=== PATIENT | female | born 1985 | race Caucasian/White ===

== ENCOUNTER → 2019-12-29 09:52 | Outpatient (CLI) | payer OTHER, SELFPAY ==
[2016-09-20 00:49] VITALS: BMI 42.3
[2019-12-29 12:46] LABS: Anion Gap 7 (5-15); BUN 14 mg/dL (7-18); BUN/Creat Ratio 12.4 RATIO (10-20); Calcium,Total 8.9 mg/dL (8.5-10.1); Chloride 108 mmol/L (98-107); Cholesterol 183 mg/dL (200); Creatinine, Serum 1.13 mg/dL (0.55-1.02); EST Glomerular Filtration Rate 59 mL/min (>60); Est Glom Filt Rate - Afr Amer 71 mL/min (>60); Glucose 83 mg/dL (74-106); High Density Lipoprotein 51 mg/dL; Potassium 4.1 mmol/L (3.5-5.1); Sodium Level 138 mmol/L (136-145); Triglycerides 93 mg/dL; Very Low Density Lipoprotein 19 mg/dL (5-40)
[2019-12-29 12:47] LABS: Vitamin D,25 Hydroxy 39.3 ng/mL (29.95-100.01)
== END ==
PROVIDERS: PCP Family Medicine; Referring Provider Family Medicine; Visit Provider Family Medicine
DX: Z00.00 Encounter for general adult medical examination without abnormal findings (principal)
CPT/HCPCS: 36415; 80048; 80061; 82306

== ENCOUNTER → 2020-05-31 13:46 | Outpatient (CLI) | payer OTHER, SELFPAY ==
[2016-09-20 00:49] VITALS: BMI 42.3
[2020-05-31 15:41] LABS: T4 Total, Thyroxin 7.7 ug/dL (4.8-13.9); Thyroid Stim Hormone (TSH) 1.13 uIU/mL (0.358-3.74)
== END ==
PROVIDERS: PCP Family Medicine; Referring Provider Family Medicine; Visit Provider Family Medicine
DX: E03.9 Hypothyroidism, unspecified (principal)
CPT/HCPCS: 36415; 84436; 84443; 84481

== ENCOUNTER → 2020-08-23 13:59 | Outpatient (CLI) | payer OTHER, SELFPAY ==
[2016-09-20 00:49] VITALS: BMI 42.3
[2020-08-23 16:16] LABS: Free T3 2.1 pg/mL (2.18-3.98); T4 Total, Thyroxin 8.6 ug/dL (4.8-13.9); Thyroid Stim Hormone (TSH) 0.91 uIU/mL (0.358-3.74)
== END ==
PROVIDERS: PCP Family Medicine; Referring Provider Family Medicine; Visit Provider Family Medicine
DX: E03.9 Hypothyroidism, unspecified (principal)
CPT/HCPCS: 36415; 84436; 84443; 84481

== ENCOUNTER → 2021-01-10 10:16 | Outpatient (CLI) | payer OTHER, SELFPAY ==
[2016-09-20 00:49] VITALS: BMI 42.3
[2021-01-10 12:36] LABS: Free T3 2.3 pg/mL (2.18-3.98); T4 Free Direct 1.24 ng/dL (0.76-1.46); Thyroid Stim Hormone (TSH) 0.55 uIU/mL (0.358-3.74)
== END ==
PROVIDERS: PCP Family Medicine; Referring Provider Family Medicine; Visit Provider Family Medicine
DX: E03.9 Hypothyroidism, unspecified (principal)
CPT/HCPCS: 36415; 84439; 84443; 84481

== ENCOUNTER → 2021-03-12 17:50 | Outpatient (CLI) | payer OTHER, SELFPAY ==
[2021-03-12 20:36] LABS: Chlamydia Trachomatis by PCR Negative (Negative); Neisserai gonorrhoeae by PCR Negative (Negative); Probe Check PASS; Sample Adequacy Control PASS; Specimen Processing Control PASS
== END ==
PROVIDERS: Visit Provider Family Medicine
DX: R30.0 Dysuria (principal); N39.0 Urinary tract infection, site not specified
CPT/HCPCS: 87086; 87088; 87186; 87491; 87591

== ENCOUNTER → 2021-10-23 10:07 | Outpatient (CLI) | payer OTHER, SELFPAY ==
[2021-10-23 12:35] LABS: Free T3 2.1 pg/mL (2.18-3.98); T4 Free Direct 0.96 ng/dL (0.76-1.46); Thyroid Stim Hormone (TSH) 2.91 uIU/mL (0.358-3.74)
== END ==
LOC: MFPLAB 10:10
PROVIDERS: PCP Family Medicine; Referring Provider Family Medicine; Visit Provider Family Medicine
DX: E03.9 Hypothyroidism, unspecified (principal)
CPT/HCPCS: 36415; 84439; 84443; 84481

== ENCOUNTER 2022-01-29 14:44 | Outpatient (CLI) | payer OTHER, SELFPAY ==
[2022-01-29 18:33] LABS: Free T3 2.2 pg/mL (2.18-3.98); T4 Total, Thyroxin 13.8 ug/dL (4.8-13.9); Thyroid Stim Hormone (TSH) 3.01 uIU/mL (0.358-3.74)
== END 2022-01-29 23:59 | disposition home or self-care (01) ==
LOC: MFPLAB 14:47
PROVIDERS: PCP Family Medicine; Referring Provider Family Medicine; Visit Provider Family Medicine
DX: E03.9 Hypothyroidism, unspecified (principal)
CPT/HCPCS: 36415; 84436; 84443; 84481

== ENCOUNTER → 2022-06-10 | Outpatient (CLI) | payer OTHER, SELFPAY ==
[2022-06-10 12:41] LABS: Absolute Lymphocyte Count 1.68 X10^3/uL (0.83-4.51); Absolute Neutrophil Count 4.7 X10^3/uL (2.0-7.7); Basophil# 0.06 X10^3/uL; Basophil% 0.8 % (0-1); Eosinophil# 0.23 X10^3/uL; Eosinophils% 3.2 % (0-5); Hematocrit 39.6 % (37-47); Hemoglobin 13.3 g/dL (12.0-15.0); Lymphocyte # 1.68 X10^3/ul (0.83-4.51); Lymphocyte % 23.4 % (19-41); Mean Corp Hgb Conc 33.6 g/dL (32-36); Mean Corpuscular Volume 92.3 fL (81-99); Mean Platelet Vol. 11.9 fl (6.2-12.0); Monocyte# 0.44 X10^3/uL; Monocyte% 6.1 % (0-10); NRBC Flagged by Analyzer 0 % (0-5); Neutrophil # 4.74 X10^3/uL (2.7-7.7); Neutrophil % 66.1 % (47-70); Platelet Count 269 K/mm3 (150-450); RBC Distribution Width CV 12.5 % (11.6-14.6); RBC Distribution Width SD 42.4 fl (35.1-43.9); Red Blood Count 4.29 M/mm3 (4.2-5.4); White Blood Count 7.2 K/mm3 (4.4-11.0)
[2022-06-10 12:54] LABS: Anion Gap 5 (5-15); BUN 11 mg/dL (7-18); BUN/Creat Ratio 9.6 RATIO (10-20); Calcium,Total 8.9 mg/dL (8.5-10.1); Chloride 108 mmol/L (98-107); Cholesterol 216 mg/dL (200); Creatinine, Serum 1.14 mg/dL (0.55-1.02); EST Glomerular Filtration Rate 57 mL/min (>60); Est Glom Filt Rate - Afr Amer 69 mL/min (>60); Free T3 2.4 pg/mL (2.18-3.98); Glucose 90 mg/dL (74-106); High Density Lipoprotein 54 mg/dL; Potassium 4.2 mmol/L (3.5-5.1); Sodium Level 139 mmol/L (136-145); T4 Free Direct 0.87 ng/dL (0.76-1.46); Thyroid Stim Hormone (TSH) 2.72 uIU/mL (0.358-3.74); Triglycerides 120 mg/dL; Very Low Density Lipoprotein 24 mg/dL (5-40)
== END | disposition home or self-care (01) ==
LOC: MFPLAB 10:11
PROVIDERS: PCP Family Medicine; Referring Provider Family Medicine; Visit Provider Family Medicine
DX: Z00.00 Encounter for general adult medical examination without abnormal findings (principal); E03.9 Hypothyroidism, unspecified
CPT/HCPCS: 36415; 80048; 80061; 84439; 84443; 84481; 85025

== ENCOUNTER → 2022-08-13 | Outpatient (CLI) | payer OTHER, SELFPAY ==
--- NOTE | 2022-08-13 14:52 | ECHOD_ITS ---
Reason For Study: DYSPNEA Procedure This was a 2D Doppler, Color Flow transthoracic echocardiogram. Exam performed in department. Left Ventricle Normal LV size. Left ventricular systolic function is normal. The estimated ejection fraction is 65 %. Normal diastology for age. No regional wall motion abnormalities noted. Right Ventricle Normal RV size. Normal systolic function. Atria The left atrium is mildly enlarged. Normal right atrium. Mitral Valve Normal mitral valve. Tricuspid Valve Normal tricuspid valve. Aortic Valve Normal aortic valve. Pulmonic Valve Normal pulmonic valve. Great Vessels Normal aortic root. The pulmonary artery is normal size. Normal inferior vena cava. Pericardium/Pleural No pericardial effusion. MMode/2D Measurements & Calculations LVIDd: 4.9 cm IVSd: 1.1 cm Ao root diam: 2.6 cm LVIDs: 3.0 cm LVPWd: 1.3 cm FS: 39.7 % LAV(MOD-bp): 62.2 ml LVAd ap4: 27.7 cm2 SV(MOD-sp4): 65.8 ml LAV(MOD-bp) Indexed: 29.1 ml/m2 LVLd ap4: 7.0 cm LAV(MOD-sp2): 34.9 ml EDV(MOD-sp4): 93.4 ml LAV(MOD-sp4): 74.1 ml EDV(sp4-el): 93.0 ml LVAs ap4: 13.8 cm2 LVLs ap4: 6.1 cm ESV(MOD-sp4): 27.6 ml ESV(sp4-el): 26.6 ml EF(MOD-sp4): 70.4 % EF(sp4-el): 71.4 % SV(sp4-el): 66.4 ml LA A4 area: 23.6 cm2 LA dimension(2D): 4.0 cm RA A4 area: 17.7 cm2 Time Measurements MV dec time: 0.20 sec Doppler Measurements & Calculations MV E max baljeet: 86.0 cm/sec Lat Peak E' Baljeet: 12.6 cm/sec Med Peak E' Baljeet: 9.5 cm/sec MV A max baljeet: 64.3 cm/sec E/E' lat: 6.8 E/E' med: 9.1 MV E/A: 1.3 MV V2 max: 91.7 cm/sec Ao V2 max: 147.4 cm/sec MV max P.4 mmHg MV dec slope: 430.6 cm/sec2 Ao max P.7 mmHg MV V2 mean: 56.3 cm/sec Ao V2 mean: 98.7 cm/sec MV mean P.4 mmHg Ao mean P.5 mmHg MV V2 VTI: 30.7 cm Ao V2 VTI: 32.4 cm LV V1 max: 111.6 cm/sec PA V2 max: 122.7 cm/sec LV V1 max P.0 mmHg PA V2 mean: 83.4 cm/sec LV V1 mean P.7 mmHg LV V1 mean: 77.4 cm/sec LV V1 VTI: 24.1 cm ECHO/Echo Complete Interpretation Summary Normal LV size. Left ventricular systolic function is normal. The estimated ejection fraction is 65 %. The left atrium is mildly enlarged. Normal diastology for age. Ordering Physician: Glynn Price Referring Physician: Glynn Price Performed By: Yodit Escobar RCS
== END | disposition home or self-care (01) ==
LOC: CVS 14:50
PROVIDERS: PCP Family Medicine; Referring Provider Internal Medicine Cardiovascular Disease; Visit Provider Internal Medicine Cardiovascular Disease
DX: Z01.810 Encounter for preprocedural cardiovascular examination (principal); R06.00 Dyspnea, unspecified; R06.02 Shortness of breath
CPT/HCPCS: 93306

== ENCOUNTER → 2022-10-29 | Outpatient (CLI) | payer OTHER, SELFPAY ==
[2022-10-29 15:59] LABS: Free T3 2.6 pg/mL (2.18-3.98); T4 Free Direct 0.97 ng/dL (0.76-1.46); Thyroid Stim Hormone (TSH) 2.49 uIU/mL (0.358-3.74)
== END | disposition home or self-care (01) ==
LOC: MFPLAB 11:48
PROVIDERS: PCP Family Medicine; Referring Provider Family Medicine; Visit Provider Family Medicine
DX: E03.9 Hypothyroidism, unspecified (principal)
CPT/HCPCS: 36415; 84439; 84443; 84481

== ENCOUNTER → 2023-02-11 | Outpatient (CLI) | payer OTHER, SELFPAY ==
[2023-02-11 15:56] LABS: Magnesium 1.9 mg/dL (1.6-2.6)
== END | disposition home or self-care (01) ==
LOC: MTLAB 13:09
PROVIDERS: PCP Family Medicine; Referring Provider Physician Assistant; Visit Provider Physician Assistant
DX: R79.0 Abnormal level of blood mineral (principal)
CPT/HCPCS: 36415; 83735

== ENCOUNTER → 2023-03-19 | Outpatient (CLI) | payer OTHER, SELFPAY ==
[2023-03-19 15:22] LABS: Hematocrit 40.1 % (37-47); Mean Corp Hgb Conc 32.4 g/dL (32-36); Mean Corpuscular Volume 92.6 fL (81-99); Mean Platelet Vol. 12.5 fl (6.2-12.0); Platelet Count 267 K/mm3 (150-450); RBC Distribution Width CV 13.1 % (11.6-14.6); RBC Distribution Width SD 44.8 fl (35.1-43.9); Red Blood Count 4.33 M/mm3 (4.2-5.4); White Blood Count 8.2 K/mm3 (4.4-11.0)
[2023-03-19 15:47] LABS: Vitamin B12 895 pg/mL (211-911)
[2023-03-19 15:58] LABS: AST(SGOT) 25 U/L (15-37); Alanine Aminotransfer ALT/SGPT 56 U/L (13-56); Albumin, Serum 3.8 g/dL (3.2-5.0); Alkaline Phosphatase 74 U/L (45-117); Anion Gap 8 (5-15); BUN 11 mg/dL (7-18); BUN/Creat Ratio 11.1 RATIO (10-20); Calcium,Total 9.4 mg/dL (8.5-10.1); Chloride 107 mmol/L (98-107); Creatinine, Serum 0.99 mg/dL (0.55-1.02); EST Glomerular Filtration Rate 67 mL/min (>60); Est Glom Filt Rate - Afr Amer 81 mL/min (>60); Ferritin 43 ng/mL (8-252); Globulin 3.9 g/dL (2.2-4.2); Glucose 84 mg/dL (74-106); Iron 62 ug/dL (50-170); Magnesium 1.7 mg/dL (1.6-2.6); Potassium 4.1 mmol/L (3.5-5.1); Protein, Total 7.7 g/dL (6.4-8.2); Sodium Level 140 mmol/L (136-145)
[2023-03-24 04:07] LABS: Zinc, Plasma or Serum 68 ug/dL (44-115)
== END | disposition home or self-care (01) ==
LOC: MTLAB 11:25
PROVIDERS: PCP Family Medicine; Referring Provider Physician Assistant; Visit Provider Physician Assistant
DX: G47.33 Obstructive sleep apnea (adult) (pediatric) (principal); E66.01 Morbid (severe) obesity due to excess calories; Z68.41 Body mass index [BMI] 40.0-44.9, adult; E61.7 Deficiency of multiple nutrient elements; Z48.89 Encounter for other specified surgical aftercare
CPT/HCPCS: 36415; 80053; 82607; 82728; 82746; 83540; 83735; 84630; 85027

== ENCOUNTER → 2023-04-29 | Outpatient (CLI) | payer OTHER, SELFPAY ==
[2023-04-29 14:00] LABS: Free T3 2.2 pg/mL (2.18-3.98); Thyroid Stim Hormone (TSH) 0.85 uIU/mL (0.358-3.74)
== END | disposition home or self-care (01) ==
LOC: MFPLAB 09:08
PROVIDERS: PCP Family Medicine; Visit Provider Family Medicine
DX: E03.9 Hypothyroidism, unspecified (principal)
CPT/HCPCS: 36415; 84439; 84443; 84481

== ENCOUNTER → 2023-08-10 | Outpatient (CLI) | payer OTHER, SELFPAY ==
[2023-08-10 18:11] LABS: ALB/GLOB Ratio 0.9 RATIO (0.9-2.4); AST(SGOT) 16 U/L (15-37); Alanine Aminotransfer ALT/SGPT 24 U/L (13-56); Albumin, Serum 3.7 g/dL (3.2-5.0); Alkaline Phosphatase 80 U/L (45-117); Anion Gap 6 (5-15); BUN 9 mg/dL (7-18); BUN/Creat Ratio 8.6 RATIO (10-20); Calcium,Total 9.1 mg/dL (8.5-10.1); Chloride 105 mmol/L (98-107); Cholesterol 152 mg/dL (200); Creatinine, Serum 1.05 mg/dL (0.55-1.02); EST Glomerular Filtration Rate 62 mL/min (>60); Est Glom Filt Rate - Afr Amer 76 mL/min (>60); Free T3 2.3 pg/mL (2.18-3.98); Glucose 145 mg/dL (74-106); High Density Lipoprotein 58 mg/dL; Potassium 3.5 mmol/L (3.5-5.1); Protein, Total 7.7 g/dL (6.4-8.2); Sodium Level 139 mmol/L (136-145); T4 Free Direct 1.24 ng/dL (0.76-1.46); Triglycerides 98 mg/dL; Very Low Density Lipoprotein 20 mg/dL (5-40)
== END | disposition home or self-care (01) ==
LOC: MTLAB 16:57
PROVIDERS: PCP Family Medicine; Referring Provider Family Medicine; Visit Provider Family Medicine
DX: Z00.00 Encounter for general adult medical examination without abnormal findings (principal); E03.9 Hypothyroidism, unspecified; K76.0 Fatty (change of) liver, not elsewhere classified
CPT/HCPCS: 36415; 80053; 80061; 84439; 84443; 84481

== ENCOUNTER → 2023-10-16 | Outpatient (CLI) | payer OTHER, SELFPAY ==
[2023-10-16 13:18] LABS: Free T3 2.3 pg/mL (2.18-3.98); T4 Free Direct 1.23 ng/dL (0.76-1.46); Thyroid Stim Hormone (TSH) 0.65 uIU/mL (0.358-3.74)
== END | disposition home or self-care (01) ==
LOC: MFPLAB 11:26
PROVIDERS: PCP Family Medicine; Visit Provider Family Medicine
DX: E03.9 Hypothyroidism, unspecified (principal)
CPT/HCPCS: 36415; 84439; 84443; 84481

== ENCOUNTER → 2023-11-23 | Outpatient (CLI) | payer OTHER, SELFPAY ==
--- OUTSIDE RECORDS SUMMARY | 2023-11-23 11:52 | XMS RPT_ITS | CCD ---
Author Name Unknown Address [address] [place] [address] Organization [facility] Care Team Providers Care Sinker Winder Name Role Phone Patricio Buckley MD Primary Care Provider PROVIDER, UNKNOWN Referring Unavailable PARISH TILLMAN Attending Unavailable Ina, Patricio Primary Care Unavailable Carey Seals Attending Unavailable PROVIDER, UNKNOWN Referring Unavailable Ina, Patricio Primary Care Unavailable Carey Seals Attending Unavailable PROVIDER, UNKNOWN Referring Unavailable Ina, Patricio Primary Care Unavailable Dalton Martino Attending Unavailable Dalton Martino Referring Unavailable Ina, Patricio Primary Care Unavailable PROVIDER, UNKNOWN Referring Unavailable Dalton Martino Attending Unavailable MAXIMO WEBB Attending Unavail able PROVIDER, UNKNOWN Referring Unavailable Buckley, Patricio Primary Care Unavailable MAXIMO WEBB Attending Unavail able PROVIDER, UNKNOWN Referring Unavailable Ina, Patricio Primary Care Unavailable Buckley, Patricio Primary Care Unavailable PROVIDER, UNKNOWN Referring Unavailable PARISH TILLMAN Attending Unavailable Ina, Patricio Primary Care Unavailable PROVIDER, UNKNOWN Referring Unavailable Carey Seals Attending Unavailable Dalton Martino Attending Unavailable PROVIDER, UNKNOWN Referring Unavailable Ina, Patricio Primary Care Unavailable PROVIDER, UNKNOWN Referring Unavailable PARISH TILLMAN Attending Unavailable Patricio Buckley Primary Care Unavailable Patricio Buckley MD Primary Care Provider Patricio Buckley MD Primary Care Provider Dalton Martino MD Unavailable [phone] Maddie Elias Unavailable MAXIMO WEBB Attending Unavailable PATRICIO BUCKLEY Primary Care Unavailable DALTON MARTINO Admitting Unavailable INA, PATRICIO Primary Care Unavailable DALTON MARTINO Attending Unavailable ZORONALD, DALTON Attending Unavailable BUCKLEY, PATRICIO Primary Care Unavailable ZUPKE, MAXIMO Attending Unavailable BUCKLEY, PATRICIO Primary Care Unavailable ZUPKE, MAXIMO Attending Unavailable BUCKLEY, PATRICIO Primary Care Unavailable BUCKLEY, PATRICIO Primary Care Unavailable ZOGRAFMARY, DALTON Attending Unavailable BUCKLEY, PATRICIO Primary Care Unavailable ZORONALD, DALTON Attending Unavailable BUCKLEY, PATRICIO Primary Care Unavailable ZORONALD, DALTON Attending Unavailable BUCKLEY, PATRICIO Primary Care Unavailable ZOKAMARAFMARY, DALTON Referring Unavailable ZUPKE, MAXIMO Attending Unavailable BUCKLEY, PATRICIO Primary Care Unavailable ZUPKE, MAXIMO Referring Unavailable ZUPKE, MAXIMO Attending Unavailable BUCKLEY, PATRICIO Primary Care Unavailable Patricio Buckley MD Primary Care Provider Salena KEMP, Dalton Bernabe Unavailable Maddie Elias Unavailable Patricio Buckley MD Primary Care Provider WILBERTO MORALES Attending Unavailable PATRICIO BUCKLEY Primary Care Unavailable Allergies Allergy Classification Reported Allergen(s) Allergy Type Date of Onset Reaction(s) Facility (10 sources) bee venom Propensity to adverse reactions to drug 12-16-2019 Anaphylaxis [facility] (2 sources) Honey bee venom Allergy to substance 12-16-2019 Anaphylaxis [facility] (2 sources) Bee Sting; Translations: [BEE STING] Allergy to substance 12-16-2019 Anaphylaxis [facility] Medications Current Medications Medication Drug Class(es) Dates Sig (Normalized) Sig (Original) calcium carbonate 500 mg chewable tablet (1 source) calcium carbonat e (Tums) 500 MG chewable tablet Chew 500 mg 3 times daily. 0 Active calcium citrate 500 mg oral tablet (2 sources) take 500 mg by mouth three times daily CALCIUM CITRATE PO Take 500 mg by mouth 3 times daily. 0 Active CPAP Machine MISC (8 sources) CPAP Machine MIS C 11 cm by Does not apply route 11 cm H20 KARINE 0 Active Magnesium (3 sources) Start: 01-19-2023 take 1 capsule by mouth once daily Magnesium 400 MG capsule Take 1 capsule by mouth daily. 0 01/19/2023 Active Multiple Vitamin (MVI, CELEBRATE, CHEWABLE TABLET) (8 sources) Start: 12-16-2019 take 1 tablet by mouth once daily Multiple Vitamin (MVI, CELEBRATE, CHEWABLE TABLET) Take 1 tablet by mouth daily 0 12/16/2019 Active Multiple Vitamins-Iron (MULTIVITAMIN/IRON PO) (2 sources) Start: 03-26-2023 take 1 tablet by mouth once daily Multiple Vitamins-Iron (MULTIVITAMIN/IRON PO) Take 1 tablet by mouth daily. 0 03/26/2023 Active multivitamin-childre n's (Flintstones) 18 MG chewable tablet (1 source) multivitamin-chi ld mayur's (Flintstones) 18 MG chewable tablet Chew 1 tablet daily. 0 Active omeprazole 20 mg delayed release oral capsule (4 sources) Proton Pump Inhibitor Start: 12-04-2022 take 1 capsule by mouth once daily omeprazole (PriLOSEC) [address] capsule Take 1 capsule (20 mg) by mouth daily. Do not crush or chew. 90 capsule 1 12/04/2022 Active propranolol hydrochloride 20 mg oral tablet (11 sources) beta-Adrenergic Himanshu Start: 12-03-2022 propranolol (Inderal) 20 MG tablet 20 mg every evening. 0 12/03/2022 Active Completed/Discontinued Medications Medication Drug Class(es) Dates Sig (Normalized) Sig (Original) 24 hr buPROPion hydrochloride 300 mg extended release oral tablet (20 sources) Aminoketone Start: 12-03-2022 take 1 tablet by mouth once daily in the morning buPROPion XL (WELLBUTRIN XL) 150 mg 24 hr tablet Take 150 mg by mouth every morning. 0 07/25/2023 Active Problems Active Problems Problem Classification Problem Date Documented Date Episodic/Chronic Diabetes mellitus without complication (1 source) Decreased glucose level; Translations: [Other abnormal glucose] 07-23-2023 Episodic Esophageal disorders (14 sources) Gastroesophageal reflux disease without esophagitis; Translations: [Gastro-esophageal reflux disease without esophagitis] Onset: 06-09-2022 Chronic Essential hypertension (2 sources) Essential (primary) hypertension; Translations: [Essential (primary) hypertension] Onset: 02-27-2022 Chronic Gastritis and duodenitis (9 sources) Chronic superficial gastritis; Translations: [Chronic superficial gastritis without bleeding] Onset: 06-09-2022 Chronic Immunizations and screening for infectious disease (5 sources) Other specified abnormal immunological findings in serum; Translations: [Other and unspecified nonspecific immunological findings] Onset: 12-30-2022 12-30-2022 Episodic Miscellaneous mental health disorders (2 sources) Eating disorder, unspecified; Translations: [Eating disorder, unspecified] Onset: 06-25-2022 Chronic Mood disorders (5 sources) Major depressive disorder, recurrent, mild; Translations: [Bipolar disorder, unspecified] Onset: 11-27-2020 Chronic Nutritional deficiencies (4 sources) Deficiency of multiple nutrient elements; Translations: [Deficiency of multiple nutrient elements] Onset: 01-22-2023 Episodic Other aftercare (1 source) Postoperative visit; Translations: [Encounter for other specified surgical aftercare] Episodic Other disorders of stomach and duodenum (2 sources) Disease of stomach and duodenum, unspecified; Translations: [Disease of stomach and duodenum, unspecified] Onset: 06-10-2022 Episodic Other hematologic conditions (1 source) Protein level - finding; Translations: [Other specified abnormalities of plasma proteins] 07-23-2023 Episodic Other liver diseases (4 sources) Steatosis of liver; Translations: [Fatty (change of) liver, not elsewhere classified] Onset: 12-22-2022 12-22-2022 Chronic Other nutritional; endocrine; and metabolic disorders (14 sources) Morbid obesity; Translations: [Morbid (severe) obesity due to excess calories] Onset: 02-24-2022 02-24-2022 Chronic Other nutritional; endocrine; and metabolic disorders (4 sources) Body mass index (BMI) 45.0-49.9, adult; Translations: [Body mass index [BMI] 45.0-49.9, adult] Onset: 06-25-2022 Chronic Other nutritional; endocrine; and metabolic disorders (4 sources) Morbid (severe) obesity due to excess calories; Translations: [Morbid (severe) obesity due to excess calories] Onset: 06-10-2022 Chronic Other nutritional; endocrine; and metabolic disorders (4 sources) Body mass index (BMI) 40.0-44.9, adult; Translations: [Body mass index [BMI] 40.0-44.9, adult] Onset: 05-23-2022 Chronic Other nutritional; endocrine; and metabolic disorders (9 sources) Body mass index 40+ - severely obese; Translations: [Morbid (severe) obesity due to excess calories] Onset: 12-04-2022 12-22-2022 Chronic Other nutritional; endocrine; and metabolic disorders (2 sources) Other obesity due to excess calories; Translations: [Other obesity due to excess calories] Onset: 03-26-2023 Chronic Other nutritional; endocrine; and metabolic disorders (2 sources) Body mass index (BMI) 37.0-37.9, adult; Translations: [Body mass index (BMI) 37.0-37.9, adult] Onset: 03-26-2023 Chronic Other nutritional; endocrine; and metabolic disorders (1 source) Obesity; Translations: [Other obesity due to excess calories] 07-20-2023 Chronic Other nutritional; endocrine; and metabolic disorders (1 source) Hypervitaminosis D; Translations: [Hypervitaminosis D] 07-23-2023 Chronic Other screening for suspected conditions (not mental disorders or infectious disease) (2 sources) Other specified abnormal findings of blood chemistry; Translations: [Other nonspecific findings on examination of blood] 07-23-2023 Episodic Residual codes; unclassified (4 sources) Obstructive sleep apnea (adult) (pediatric); Translations: [Obstructive sleep apnea (adult) (pediatric)] Onset: 06-10-2022 Chronic Residual codes; unclassified (2 sources) Dependence on other enabling machines and devices; Translations: [Dependence on other enabling machines and devices] Onset: 02-27-2022 Chronic Residual codes; unclassified (6 sources) Obstructive sleep apnea syndrome; Translations: [Obstructive sleep apnea (adult) (pediatric)] Onset: 12-04-2022 12-22-2022 Chronic Thyroid disorders (17 sources) Hypothyroidism; Translations: [Hypothyroidism, unspecified] Onset: 08-13-2017 02-27-2022 Chronic Past or Other Problems Problem Classification Problem Date Documented Da te Episodic/Chronic Abdominal hernia (8 sources) Diaphragmatic hernia without obstruction or gangrene; Translations: [Hiatal hernia] Onset: 04-16-2022 Episodic Abdominal pain (3 sources) Generalized abdominal pain; Translations: [Generalized abdominal pain] Onset: 04-02-2022 Episodic Other aftercare (2 sources) Encounter for other specified surgical aftercare; Translations: [Encounter for other specified surgical aftercare] Onset: 01-22-2023 Episodic Other gastrointestinal disorders (2 sources) Heartburn; Translations: [Heartburn] Onset: 04-16-2022 Episodic Spondylosis; intervertebral disc disorders; other back problems (16 sources) Backache; Translations: [Dorsalgia, unspecified] Onset: 02-27-2022 02-27-2022 Episodic Results Test Name Value Interpretation Reference Range Facil ity Vital Signs Date Time Vital Sign Value Performing Clinician Goldnoemí mary jane 08-04-2023 09:53-0400 Body height 158.1 cm Wilberto Morales MD Work Phone: [facility] 08-04-2023 09:53-0400 Body weight 83.01 kg Wilberto Morales MD Work Phone: [facility] 08-04-2023 09:53-0400 Diastolic blood pressure 76 mm[Hg] Wilberto Morales MD Work Phone: [facility] 08-04-2023 09:53-0400 Systolic blood pressure 118 mm[Hg] Wilberto Morales MD Work Phone: [facility] 07-20-2023 14:19-0400 Body height 161.3 cm Maximo Zupke PA Work Phone: [facility] 07-20-2023 14:19-0400 Body mass index (BMI) [Ratio] 32.75 kg/m2 Maximo Zupke PA Work Phone: [facility] 07-20-2023 14:19-0400 Body temperature 97.7 [degF] Maximo Zupke PA Work Phone: [facility] 07-20-2023 14:19-0400 Body weight 85.19 kg Maximo Zupke PA Work Phone: [facility] 07-20-2023 14:19-0400 Diastolic blood pressure 85 mm[Hg] Maximo Zupke PA Work Phone: [facility] 07-20-2023 14:19-0400 Heart rate 72 /min Maximo Zupke PA Work Phone: [facility] 07-20-2023 14:19-0400 Respiratory rate 16 /min Maximo Zupke PA Work Phone: [facility] 07-20-2023 14:19-0400 Systolic blood pressure 124 mm[Hg] Maximo MAYA Work Phone: [facility] 01-22-2023 08:44-0400 Body height 161.3 cm Maximo MAYA Work Phone: [facility] Encounters Encounter Date Encounter Type Care Provider Facility Start: 08-04-2023 End: 08-04-2023 ambulatory WILBERTO MORALES Facility:[facility] Start: 08-04-2023 End: 08-04-2023 Patient encounter procedure Wilberto Morales MD Work Phone: OB/Gynecology Procedures Date Procedure Procedure Detail Performing Clinician Start: 07-20-2023 Lipid 1996 panel - S ramos or Plasma Maximo MAYA Work Phone: Start: 06-10-2022 HM ENDOSCOPY REPORT Phy sician Generic Start: 04-02-2022 Us abdominal real ti me w/image documentation Maximo MAYA Work Phone: Plan of Treatment Date Care Activity Detail Author Start: 2035 Zoster Vaccines (1 o f 2) Zoster Vaccines (1 of 2) [facility] Start: 07-20-2028 Lipid panel Lipid Panel [facility] Start: 12-24-2023 End: 12-24-2023 Patient encounter procedure 12/24/2023 8:00 AM EST Office Visit Weight Management [address] [place] [address] Dalton Martino MD [address] [place] [address] [address] [place], [place] [id number] [facility] [place] Start: 12-20-2023 End: 07-20-2024 25-hydroxyvitamin D3 [Mass/volume] in Serum or Plasma Vitamin D Deficiency Screening (Vit D 25) Lab Routine Deficiency of multiple nutrient elements Class 1 obesity due to excess calories with serious comorbidity and body mass index (BMI) of 32.0 to 32.9 in adult Expected: 12/20/2023 (Approximate), Expires: 07/20/2024 [facility] Immunizations Immunization Date Immunization Notes Care Provider Fa cility 09-03-2022 influenza, injectabl e, quadrivalent, contains preservative Wilberto Morales MD Work Phone: [facility] Work Phone: 09-03-2022 influenza virus vaccine, unspecified formulation Maximo MAYA Work Phone: [facility] 10-23-2021 influenza, injectabl e, quadrivalent, contains preservative Wilberto Morales MD Work Phone: [facility] Work Phone: 08-24-2020 influenza, injectabl e, quadrivalent, preservative free Wilberto Morales MD Work Phone: [facility] Work Phone: 08-10-2017 influenza, seasonal, injectable Wilberto Morales MD Work Phone: [facility] Work Phone: 09-21-2016 influenza, seasonal, injectable, preservative free Wilberto Morales MD Work Phone: [facility] Work Phone: 09-18-2015 influenza, seasonal, injectable, preservative free Wilbreto Morales MD Work Phone: [facility] Work Phone: 09-18-2014 influenza, seasonal, injectable Wilberto Morales MD Work Phone: [facility] Work Phone: Payers Date Payer Category Payer Private Health Insurance [id number] 2019 Private Health Insurance 1985 Unknown [id number] 2.16. [id number] 1985 Unknown [id number] 2.16. [id number] 1985 Unknown [id number] 2.16. [id number] 1985 Unknown [id number] 2.16. [id number] 1985 Unknown [id number] 2.16. [id number] 1985 Unknown [id number] 2.16. [id number] 1985 Unknown [id number] 2.16. [id number] 1985 Unknown [id number] 2.16. [id number] 1985 Unknown [id number] 2.16. [id number] 1985 Unknown [id number] 2.16. [id number] 1985 Unknown [id number] 2.16. [id number] Self-pay Social History Date Type Detail Facility Start: 02-27-2022 End: 12-15-2022 Tobacco smoking status TXIS Ex-smoker [employer] Work Phone: History of tobacco use Cigarette Smoker [facility] Work Phone: Start: 02-27-2022 End: 08-04-2023 Tobacco use and exposure Smokeless tobacco non-user [employer] Work Phone: Start: 02-27-2022 End: 08-04-2023 Alcohol intake Current drinker of alcohol (finding) [employer] Work Phone: Start: 02-27-2022 End: 08-04-2023 Alcohol intake [facility] Start: 1985 Sex Assigned At Not on file [employer] Work Phone: History of tobacco use Current smoker [facility] Work Phone: Start: 05-31-2022 End: 07-20-2023 Exposure to SARS-CoV-2 (event) Not sure [facility] Work [facility]: Start: 01-22-2023 End: 07-20-2023 Alcohol intake Ex-drinker (finding) [facility] Start: 07-20-2023 End: 08-04-2023 Tobacco use panel [facility] Start: 08-04-2023 Tobacco smoking stat us NHIS Never smoked tobacco [facility] How hard is it for y ou to pay for the very basics like food, housing, medical care, and heating Not hard at all [facility] (I/We) worried wheth er (my/our) food would run out before (I/we) got money to buy more. Never true [facility] Start: 12-16-2019 Alcohol Comment Social [facility] Clinical Notes 06-10-2022 to 08-04-2023 Wilberto Morales MD - 08/04/2023 9:47 AM EDTTelephone Encounter - ZULMA Alegria - 07/24/2023 8:32 AM EDTTelephone Encounter - ZULMA Alegria - 07/24/2023 8:32 AM EDTDischarge Instructions Note Date & Type Note Facility 08-04-2023 Note HNO ID: [id number] Author: Wilberto Morales MD Service: ? Author Type: Physician Type: Progress Notes Filed: 08/04/2023 10:27 AM Note Text: Lana is a 37 year old who presents for an annual gynecologic exam without complaints. Menses: cycles every 28-30 days and 5 days of flow. Contraception: vasectomy HPV vaccine: No Last Pap: normal HPV: uncertain History of abnormal pap: No Last mammogram: never Sexually active: Yes OB History T2 L2 SAB0 IAB0 Ectopic0 Multiple0 Live Births2 Obstetrician And Gynaecologist History LMP: 07/21/2023 (Exact Date), Having periods Age at Menarche: Age at First : Age at Menopause: Obstetrician And Gynaecologist History Comments: Sexual Activity: Yes; Male Contraception: Vasectomy PAST MEDICAL HISTORY Diagnosis Date Depression Hypothyroid Psychiatric disorder PAST SURGICAL HISTORY Procedure Laterality Date LAP SLEEVE GASTRECTOMY 12/22/2022 FAMILY HISTORY Problem Relation Age of Onset Hypertension Mother Hypertension Father SOCIAL HISTORY Social History Tobacco Use Smoking status: Never Smokeless tobacco: Never Vaping Use Vaping Use: Never used Substance Use Topics Alcohol use: Yes Comment: Social Drug use: Never REVIEW OF SYSTEMS Abdomen: No abdominal pain, nausea, vomiting, diarrhea, or constipation. No bloating, early satiety, indigestion, or increased flatulence. Bladder: No dysuria, gross hematuria, urinary frequency, urinary urgency, or incontinence. Breast: No breast lumps, nipple d/c, overlying skin changes, redness or skin retraction. Allergies and current medication updated:Yes EXAM: BP 118/76 Ht 5' 2.25 (1.58m) Wt 183 lb (83.0kg) LMP 07/21/2023 BMI 33.21 kg/(m2). GENERAL: pleasant, female in no apparent distress HEENT: Normocephalic, atraumatic, mucus membranes moist, and no lesions NECK: Supple, full range of motion, no adenopathy, and thyroid normal DERMATOLOGY: Normal, without lesions, non-icteric, and non-hirsute BREAST: soft, non-tender, symmetric, no dominant mass, normal nipple-areolar complex, no lymphadenopathy, and no nipple discharge CHEST: Normal inspiratory effort ABDOMEN: soft, non-tender, and no masses PELVIC: external genitalia normal, normal Bartholin's glands, urethra, [place]'s glands, no vulvar lesions, no cervical lesions, good vaginal support, physiologic discharge present, normal appearing perineal body and perianal region BIMANUAL: uterus normal size, shape and consistency, no adnexal masses, and non-tender RECTOVAGINAL: deferred. NEURO: alert and oriented x3,exam grossly non-focal EXTREMITIES: normal ASSESSMENT/PLAN: 1) Health maintenance: Pap done with HPV. Mammogram starting age 40. HPV vaccine: discussed, not interested 2) Contraception: vasectomy. Contraceptive options reviewed and information provided. 3) STD screening: Declined STD check. 4) Follow up one year or sooner as needed Declines flu vaccine today Wilberto Morales MD [facility] 08-04-2023 History of Present illness Narrative Lana is a 37 year old who presents for an annual gynecologic exam without complaints. Menses: cycles every 28-30 days and 5 days of flow. Contraception: vasectomy HPV vaccine: No Last Pap: normal HPV: uncertain History of abnormal pap: No Last mammogram: never Sexually active: Yes OB History T2 L2 SAB0 IAB0 Ectopic0 Multiple0 Live Births2 Obstetrician And Gynaecologist History LMP: 07/21/2023 (Exact Date), Having periods Age at Menarche: Age at First : Age at Menopause: Obstetrician And Gynaecologist History Comments: Sexual Activity: Yes; Male Contraception: Vasectomy PAST MEDICAL HISTORY Diagnosis Date Depression Hypothyroid Psychiatric disorder PAST SURGICAL HISTORY Procedure Laterality Date LAP SLEEVE GASTRECTOMY 12/22/2022 FAMILY HISTORY Problem Relation Age of Onset Hypertension Mother Hypertension Father SOCIAL HISTORY Social History Tobacco Use Smoking status: Never Smokeless tobacco: Never Vaping Use Vaping Use: Never used Substance Use Topics Alcohol use: Yes Comment: Social Drug use: Never REVIEW OF SYSTEMS Abdomen: No abdominal pain, nausea, vomiting, diarrhea, or constipation. No bloating, early satiety, indigestion, or increased flatulence. Bladder: No dysuria, gross hematuria, urinary frequency, urinary urgency, or incontinence. Breast: No breast lumps, nipple d/c, overlying skin changes, redness or skin retraction. Allergies and current medication updated:Yes EXAM: BP 118/76 Ht 5' 2.25 (1.58m) Wt 183 lb (83.0kg) LMP 07/21/2023 BMI 33.21 kg/(m^2). GENERAL: pleasant, female in no apparent distress HEENT: Normocephalic, atraumatic, mucus membranes moist, and no lesions NECK: Supple, full range of motion, no adenopathy, and thyroid normal DERMATOLOGY: Normal, without lesions, non-icteric, and non-hirsute BREAST: soft, non-tender, symmetric, no dominant mass, normal nipple-areolar complex, no lymphadenopathy, and no nipple discharge CHEST: Normal inspiratory effort ABDOMEN: soft, non-tender, and no masses PELVIC: external genitalia normal, normal Bartholin's glands, urethra, [place]'s glands, no vulvar lesions, no cervical lesions, good vaginal support, physiologic discharge present, normal appearing perineal body and perianal region BIMANUAL: uterus normal size, shape and consistency, no adnexal masses, and non-tender RECTOVAGINAL: deferred. NEURO: alert and oriented x3,exam grossly non-focal EXTREMITIES: normal ASSESSMENT/PLAN: 1) Health maintenance: Pap done with HPV. Mammogram starting age 40. HPV vaccine: discussed, not interested 2) Contraception: vasectomy. Contraceptive options reviewed and information provided. 3) STD screening: Declined STD check. 4) Follow up one year or sooner as needed Declines flu vaccine today Wilberto Morales MD documented in this encounter [facility] 07-24-2023 Telephone encounter Note Signed, thanks [facility] 07-24-2023 Miscellaneous Notes Signed, thanks Spoke to patient during OV on 07/20/23 regarding intake, supplements, and spoke to patient over MyChart regarding labs. Discussed hypoglycemia. Patient noted she was not fasting for her labs, but it had been a while since she had eaten. RD reminded patient to try and eat every 2-3 hours, pair complex CHO and protein sources together with meals and snacks, as well as how to treat a low blood sugar and to be aware of symptoms. Discussed elevated B12. Patient reports she has been taking 5,[address] encouraged patient take once weekly and patient was agreeable. RD encouraged patient continue to increase hydration with elevated total protein and to follow-up with PCP. Informed patient Vitamin D was on the high end of normal. Discussed increasing time outside can raise levels, and for patient to continue current dose and lab will be rechecked in 3 months; will continue to monitor. Medication list updated. Orders pending. DOS 12/22/2022 LSG W / HH REPAIR JZ Next OV 12/24/23 for 12M POP Labs (07/20/23) Glucose: 64 (L) Total protein: 8.6 (H) B12: >1000 (H) Vitamin D: 78 (high end of normal) B1 pending Sending MyChart message to patient regarding labs. ----- Message from ZULMA Alegria sent at 07/21/2023 8:28 AM EDT ----- Sarah- please review. Thanks! Glucose low Please also advise PCP follow up for elevated total protein documented in this encounter [employer] 07-23-2023 Telephone encounter Note Spoke to patient during OV on 07/20/23 regarding intake, supplements, and spoke to patient over MyChart regarding labs. Discussed hypoglycemia. Patient noted she was not fasting for her labs, but it had been a while since she had eaten. RD reminded patient to try and eat every 2-3 hours, pair complex CHO and protein sources together with meals and snacks, as well as how to treat a low blood sugar and to be aware of symptoms. Discussed elevated B12. Patient reports she has been taking 5,[address] encouraged patient take once weekly and patient was agreeable. RD encouraged patient continue to increase hydration with elevated total protein and to follow-up with PCP. Informed patient Vitamin D was on the high end of normal. Discussed increasing time outside can raise levels, and for patient to continue current dose and lab will be rechecked in 3 months; will continue to monitor. Medication list updated. Orders pending. [employer] 07-21-2023 Telephone encounter Note DOS 12/22/2022 LSG W / HH REPAIR JZ Next OV 12/24/23 for 12M POP Labs (07/20/23) Glucose: 64 (L) Total protein: 8.6 (H) B12: >1000 (H) Vitamin D: 78 (high end of normal) B1 pending Sending MyChart message to patient regarding labs. [employer] 07-21-2023 Telephone encounter Note ----- Message from ZULMA Alegria sent at 07/21/2023 8:28 AM EDT ----- Sarah- please review. Thanks! Glucose low Please also advise PCP follow up for elevated total protein [employer] 07-20-2023 History of Present illness Narrative Images from the original note were not included. HPI, PHYSICAL EXAMINATION & PLAN POST-OP HPI: Patient here today for 6 month post-weight loss surgery follow up The patient is feeling well. Denies nausea, vomiting, dysphagia, or any GERD Sx. Currently is not on any PPI. Patient states diet and exercise is going well. Currently is eating 65-75 gm/day protein, and is compliant with prescribed multivitamins and supplements. Eating 4-5 times per day. Fluid intake 64 ounces daily. Reports continued tolerance issues with eggs and PB but otherwise tolerates foods well. BM normal and every other day. Review of Systems Constitutional: Negative for chills and fever. HENT: Negative for congestion, sore throat and trouble swallowing. Respiratory: Negative for cough and shortness of breath. Cardiovascular: Negative for chest pain and palpitations. Gastrointestinal: Negative for abdominal pain, constipation, diarrhea, nausea and vomiting. Genitourinary: Negative for dysuria and frequency. Musculoskeletal: Negative for arthralgias and back pain. Skin: Negative for color change. Neurological: Negative for dizziness and light-headedness. Psychiatric/Behavioral: The patient is not nervous/anxious. Vital signs are stable. Labs were Not completed. All labs were: pending Physical Examination: BP 124/85 Pulse 72 Temp 36.5 C (97.7 F) Resp 16 Ht 5' 3.5 (1.613 m) Wt 187 lb 12.8 oz (85.2 kg) BMI 32.75 kg/m General: This patient is awake, alert, and oriented, and is in no apparent distress. Respiratory: Non-labored breathing Abdomen: Obese, soft, non-tender, non-distended without masses/ No evidence of abdominal hernia / Incisions consistent with previous surgeries. Head and Neck: Obese, normocephalic and atraumatic Extremities: No cyanosis, clubbing or edema/ No calf tenderness/No restrictions of movement, is ambulatory without assistance. Skin: No rashes or lesions noted. 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 Discussed stopping PPI with patient. Patient is call if any mentioned symptoms return: persistent nausea all day, epigastric pain, pain radiating under either side of rib cage or pain in the middle of their back that is not improving. 2). Labs: pending 3). Diet and Exercise: RD discussed diet with patient during office visit. 4). Follow up at 12 month office visit with standard labs. 5). Psych concerns: no 6). Patient is a woman of childrearing age- 18-50. We discussed the importance of contraception during the first 12-18 months post op, and we discussed that fertility will increase following the procedure. Advised patient to discuss with her OBGYN regarding contraception. Patient counseled with good understanding verbalized. has hx of vasectomy. 7). Weight loss: Post-op Weight Metrics: %EBWL: % EBWL: 50% Weight Change Since Last Visit: Weight Change: -29 lbs Weight Change from Highest Pre-op Weight: Total Weight Change: -70 lbs KARINE -compliant w CPAP GERD -has been off PPI for a week now and no issues with GERD sx Orders Placed This Encounter Procedures Zinc These orders are set for an approximate date - they can be drawn up to 3 months prior to the Expected Date on this Req. Please send results to: PATRICIO BUCKLEY MD - [address] [facility] [address] [facility] [address] - [phone] And if not done at a [facility], please send to: [facility] [address], [address] [facility], [address] Patient Name: Lana Adame - 1985 Order Created by : Han Leung MA Standing Status: Future Number of Occurrences: 1 Standing Expiration Date: 07/20/2024 Folate These orders are set for an approximate date - they can be drawn up to 3 months prior to the Expected Date on this Req. Please send results to: PATRICIO BUCKLEY MD - [address] [place] [address] [facility] [id number] - [phone] And if not done at a [facility], please send to: [address], [facility] Patient Name: Lana Adame - 1985 Order Created by : Han Leung MA Standing Status: Future Number of Occurrences: 1 Standing Expiration Date: 07/20/2024 Iron These orders are set for an approximate date - they can be drawn up to 3 months prior to the Expected Date on this Req. Please send results to: PATRICIO BUCKLEY MD - [address] [facility] [address] [facility] [address] - [phone] And if not done at a [facility], please send to: [place] [address] Patient Name: Lana Adame - 1985 Order Created by : Han Leung MA Standing Status: Future Number of Occurrences: 1 Standing Expiration Date: 07/20/2024 Ferritin These orders are set for an approximate date - they can be drawn up to 3 months prior to the Expected Date on this Req. Please send results to: PATRICIO BUCKLEY MD - [address] [facility] [address] [facility] [address] - [phone] And if not done at a [facility], please send to: [place] [address] Patient Name: Lana Adame - 1985 Order Created by : Han Leung MA Standing Status: Future Number of Occurrences: 1 Standing Expiration Date: 07/20/2024 Magnesium These orders are set for an approximate date - they can be drawn up to 3 months prior to the Expected Date on this Req. Please send results to: PATRICIO BUCKLEY MD - [address] [facility] [address] [facility] [address] - [phone] And if not done at a [facility], please send to: [place] [address] Patient Name: Lana Adame - 1985 Order Created by : Han Leung MA Standing Status: Future Number of Occurrences: 1 Standing Expiration Date: 07/20/2024 Vitamin D Deficiency Screening (Vit D 25) These orders are set for an approximate date - they can be drawn up to 3 months prior to the Expected Date on this Req. Please send results to: PATRICIO BUCKLEY MD - [address] [place] [address] [place] [address] - [phone] And if not done at a [facility], please send to: [place] [address] Patient Name: Lana Adame - 1985 Order Created by : Han Leung MA Standing Status: Future Number of Occurrences: 1 Standing Expiration Date: 07/20/2024 Vitamin B12 These orders are set for an approximate date - they can be drawn up to 3 months prior to the Expected Date on this Req. Please send results to: MD Ming NEUMANN [address] [place] [id number] - [phone] And if not done at a [facility], please send to: [address], [facility] Patient Name: Lana Adame - 1985 Order Created by : Han Leung MA Standing Status: Future Number of Occurrences: 1 Standing Expiration Date: 07/20/2024 Vitamin B1, whole blood These orders are set for an approximate date - they can be drawn up to 3 months prior to the Expected Date on this Req. Please send results to: MD Ming NEUMANN [address] [place] [address] [place] [phone] - [phone] And if not done at a [facility], please send to: [address], [address] Patient Name: Lana Adame - 1985 Order Created by : Han Leung MA Standing Status: Future Number of Occurrences: 1 Standing Expiration Date: 07/20/2024 Lipid panel These orders are set for an approximate date - they can be drawn up to 3 months prior to the Expected Date on this Req. Please send results to: PATRICIO BUCKLEY MD - [address] [place] [address] [facility] [id number] - [phone] And if not done at a [facility], please send to: [address], [facility] Patient Name: Lana Adame - 1985 Order Created by : Han Leung MA Standing Status: Future Number of Occurrences: 1 Standing Expiration Date: 07/20/2024 Comprehensive metabolic panel These orders are set for an approximate date - they can be drawn up to 3 months prior to the Expected Date on this Req. Please send results to: PATRICIO BUCKLEY MD - [address] [place] [address] [facility] [phone] - [phone] And if not done at a [facility], please send to: [address], [address] Patient Name: Lana Adame - 1985 Order Created by : Han Leung MA Standing Status: Future Number of Occurrences: 1 Standing Expiration Date: 07/20/2024 CBC These orders are set for an approximate date - they can be drawn up to 3 months prior to the Expected Date on this Req. Please send results to: MD Ming NEUMANN [address] [place] [address] [facility] [address] - [phone] And if not done at a [facility], please send to: [facility] - [address] [place] [address], [address] [place], [address] Patient Name: Lana Adame - 1985 Order Created by : Han Leung MA Standing Status: Future Number of Occurrences: 1 Standing Expiration Date: 07/20/2024 Medications ordered during this encounter: Outpatient Encounter Medications as of 07/20/2023 Medication Sig Dispense Refill buPROPion XL (Wellbutrin XL) 150 MG 24 hr tablet 150 mg every evening. 450mg total buPROPion XL (Wellbutrin XL) 300 MG 24 hr tablet 300 mg every evening. 450mg total CALCIUM CITRATE PO Take 500 mg by mouth 3 times daily. Cholecalciferol (VITAMIN D3 PO) Take 4,000 Int'l Units by mouth before bedtime. cyanocobalamin (Vitamin B-12) 500 MCG tablet Take 500 mcg by mouth daily. levothyroxine (Synthroid, Levoxyl) 112 MCG tablet Take 112 mcg by mouth daily. Magnesium 400 MG capsule Take 1 capsule by mouth daily. Multiple Vitamins-Iron (MULTIVITAMIN/IRON PO) Take 1 tablet by mouth daily. omeprazole (PriLOSEC) [address] capsule Take 1 capsule (20 mg) by mouth daily. Do not crush or chew. (Patient taking differently: Take 20 mg by mouth daily. Do not crush or chew.) 90 capsule 1 Respiratory Therapy Supplies (CareTouch 2 CPAP Hose Cloth Finishing Range Operator Chief) misc 11 cm. [DISCONTINUED] Latuda 80 MG tablet Take 20 mg by mouth with evening meal. No facility-administered encounter medications on file as of 07/20/2023. Visit Diagnoses: 1. Deficiency of multiple nutrient elements 2. Class 1 obesity due to excess calories with serious comorbidity and body mass index (BMI) of 32.0 to 32.9 in adult 3. KARINE (obstructive sleep apnea) Current Medications: Patient's Medications New Prescriptions No medications on file Previous Medications BUPROPION XL (WELLBUTRIN XL) 150 MG 24 HR TABLET 150 mg every evening. 450mg total BUPROPION XL (WELLBUTRIN XL) 300 MG 24 HR TABLET 300 mg every evening. 450mg total CALCIUM CITRATE PO Take 500 mg by mouth 3 times daily. CHOLECALCIFEROL (VITAMIN D3 PO) Take 4,000 Int'l Units by mouth before bedtime. CYANOCOBALAMIN (VITAMIN B-12) 500 MCG TABLET Take 500 mcg by mouth daily. LEVOTHYROXINE (SYNTHROID, LEVOXYL) 112 MCG TABLET Take 112 mcg by mouth daily. MAGNESIUM 400 MG CAPSULE Take 1 capsule by mouth daily. MULTIPLE VITAMINS-IRON (MULTIVITAMIN/IRON PO) Take 1 tablet by mouth daily. OMEPRAZOLE (PRILOSEC) [address] CAPSULE Take 1 capsule (20 mg) by mouth daily. Do not crush or chew. RESPIRATORY THERAPY SUPPLIES (CARETOUCH 2 CPAP HOSE DESULPHURING OPERATOR) MISC 11 cm. Modified Medications No medications on file Discontinued Medications LATUDA 80 MG TABLET Take 20 mg by mouth with evening meal. [facility] > 6 MONTH POST-OPERATIVE DIETITIAN VISIT Date: 07/20/23 Patient's weight decreased by: 70 lbs Patient does consume 5-6 small meals daily Patient s portions are adequate for current diet: -1 cup Protein requirements discussed- currently consuming 50-65 grams protein daily. Current protein sources: kiswahili yogurt, protein shake, chicken, beans, cheese Recommendations: none Fluid requirements discussed. Current Fluid Intake: 64 fl oz Patient does drink sugar-free, caffeine-free and carbonation-free fluids only. Patient does wait 30 minutes before and after meals to drink Exercise activities discussed. Patient does currently exercise. She was reminded that regular exercise is critical part of a successful outcome following weight loss surgery. Walking Behavioral/Emotional changes reviewed. Patient does feel comfortable with changes in eating behaviors and associated emotional changes. She was reminded that psychological counseling is available through the [facility] post-operatively. Recent Nutrient Concerns and Vitamin Supplementation Changes: No new labs to review at this time. Patient does report compliance with V/M protocol Notes/Comments: Doing well overall. Patient to keep increasing protein in diet. Patient instructed to call or MyChart message with any questions or concerns Visit completed by: Kassandra Lin MS, RDN, LD [facility] PROGRESS [facility] POST WEIGHT LOSS SURGERY FOLLOW UP Patient: Lana Adame Service Date: 07/20/2023 Patient is 7 month(s) s/p Sleeve Gastrectomy Today's Metrics: Post-Surgical Weight Loss Date: 07/20/23 Height: 5' 3.5 (161.3 cm) Weight: 187 lb 12.8 oz (85.2 kg) BMI: 32.74 Weight Change: -29 lbs Total Weight Change: -70 lbs % EBWL: 50% Comments: 7m Pre-op Weight Metrics: Post-op Weight Metrics: %EBWL: % EBWL: 50% Weight Change Since Last Visit: Weight Change: -29 lbs Weight Change from Highest Pre-op Weight: Total Weight Change: -70 lbs Patient has the following questions: None Reported Pain: Patient rates pain on scale 0-10 as: 0 Exercise Compliance: Exercising: yes If yes: Type: walking Times per week: 3 Min per session: 20 Falls Risk Assessment Patient does not take medications which affect BP or mental status Patient does not have newly prescribed or changed dosage of medications within past 30 days which affect BP or mental status Patient has not fallen in the past 2 months Patient does not demonstrate unsteady gait Patient uses the following ambulatory assistive devices: Patient states the presence of the following traits which increases risk of fall: Patient is not on home O2 Labs Completed: no - If NO, patient instructed to get labs drawn today or REBECCA If YES: Labs completed at [facility]? no If yes see Labs Tab [facility]? no If yes see Encounters Tab - Orders only - Historical Provider - Date: Completed by: Han Leung MA documented in this encounter [facility] 03-26-2023 Note [facility] PROGRESS NOTE POST WEIGHT LOSS SURGERY FOLLOW UP Patient: Lana Adame Service Date: 03/26/2023 Patient is 3 month(s) s/p Sleeve Gastrectomy w HH Today's Metrics: Post-Surgical Weight Loss Date: 03/26/23 Height: 5' 3.5 (161.3 cm) Weight: 216 lb 12.8 oz (98.3 kg) BMI: 37.80 Weight Change: -22.2 lbs Total Weight Change: -41 lbs % EBWL: 29% Comments: 3m Pre-op Weight Metrics: Post-op Weight Metrics: %EBWL: % EBWL: 29% Weight Change Since Last Visit: Weight Change: -22.2 lbs Weight Change from Highest Pre-op Weight: Total Weight Change: -41 lbs Patient has the following questions: None Reported Pain: Patient rates pain on scale 0-10 as: 0 Exercise Compliance: Exercising: yes If yes: Type: walking and machines Times per week: 3 Min per session: 40-45 Falls Risk Assessment Patient does take medications which affect BP or mental status Patient does not have newly prescribed or changed dosage of medications within past 30 days which affect BP or mental status Patient has not fallen in the past 2 months Patient does not demonstrate unsteady gait Patient uses the following ambulatory assistive devices: none Patient states the presence of the following traits which increases risk of fall: none Patient is not on home O2 Labs Completed: yes - If NO, patient instructed to get labs drawn today or REBECCA If YES: Labs completed at [facility]? no If yes see Labs Tab Labs completed at Non[facility] facility? yes , [facility] 03/18 If yes see Encounters Tab - Orders only - Historical Provider - Date: Completed by: Alejandrina Smith [facility] 01-22-2023 Note [facility] PROGRESS NOTE POST WEIGHT LOSS SURGERY FOLLOW UP Patient: Lana Adame Service Date: 01/22/2023 Patient is 1 month(s) s/p Sleeve Gastrectomy, HH repair Today's Metrics: Post-Surgical Weight Loss Date: 01/22/23 Height: 5' 3.5 (161.3 cm) Weight: 239 lb (108 kg) BMI: 41.67 Weight Change: -2.8 lbs Total Weight Change: -18.8 lbs % EBWL: 13% Comments: 1M Pre-op Weight Metrics: Post-op Weight Metrics: %EBWL: % EBWL: 13% Weight Change Since Last Visit: Weight Change: -2.8 lbs Weight Change from Highest Pre-op Weight: Total Weight Change: -18.8 lbs Patient has the following questions: None Reported Pain: Patient rates pain on scale 0-10 as: 0 Exercise Compliance: Exercising: yes If yes: Type: walking Times per week: 6-7 Min per session: 30 Falls Risk Assessment Patient does take medications which affect BP or mental status Patient does have newly prescribed or changed dosage of medications within past 30 days which affect BP or mental status Patient has not fallen in the past 2 months Patient does not demonstrate unsteady gait Patient uses the following ambulatory assistive devices: none Patient states the presence of the following traits which increases risk of fall: none Patient is not on home O2 Labs Completed: yes - If NO, patient instructed to get labs drawn today or REBECCA If YES: Labs completed at [facility]? yes 3/7 If yes see Labs Tab Labs completed at Non[facility] facility? N/A If yes see Encounters Tab - Orders only - Historical Provider - Date: Completed by: Alejandrina Duke [facility] 01-22-2023 History of Present illness Narrative Images from the original note were not included. [facility] SURGICAL PROGRAM Patient: Lana Adame Date of : 1985 Service Date: 01/22/23 HPI: Patient here today for 1 month post-weight loss surgery follow up She is feeling well. Denies nausea, vomiting, dysphagia, or any GERD Sx. Currently is on a PPI. Patient states diet and exercise is going fairly well. Currently is eating 65-75 gm/day protein, and is compliant with prescribed multivitamins and supplements. Patient reports doing well. Eating 4-5 times per day. Fluid intake >64 ounces daily. Denies dysphagia. Taking supplements daily without difficulty. BM normal and every other day. Vital signs are stable. Labs were Completed. All labs were: magnesium L 1.5 Physical Examination: BP 109/76 Pulse 82 Temp 36.4 C (97.5 F) Resp 16 Ht 5' 3.5 (1.613 m) Comment: bcc Wt 239 lb (108 kg) BMI 41.67 kg/m General: This patient is awake, alert, and oriented, and is in no apparent distress. Respiratory: Non-labored breathing Abdomen: Obese, soft, non-tender, non-distended without masses/ No evidence of abdominal hernia / Incisions consistent with previous surgeries. Extremities: No cyanosis, clubbing or edema/ No calf tenderness/No restrictions of movement, is ambulatory without assistance. Surgical site: clean, dry, intact, and nontender Drainage from surgical site: none Patient does not have a superficial incisional SSI Current Medications: Patient's Medications New Prescriptions No medications on file Previous Medications BUPROPION XL (WELLBUTRIN XL) 150 MG 24 HR TABLET 150 mg every evening. 450mg total BUPROPION XL (WELLBUTRIN XL) 300 MG 24 HR TABLET 300 mg every evening. 450mg total CALCIUM CARBONATE (TUMS) 500 MG CHEWABLE TABLET Chew 500 mg 3 times daily. CHOLECALCIFEROL (VITAMIN D3 PO) Take 4,000 Int'l Units by mouth before bedtime. CYANOCOBALAMIN (VITAMIN B-12) 500 MCG TABLET Take 500 mcg by mouth daily. LATUDA 80 MG TABLET Take 60 mg by mouth with evening meal. LEVOTHYROXINE (SYNTHROID, LEVOXYL) 112 MCG TABLET Take 112 mcg by mouth daily. MAGNESIUM 400 MG CAPSULE Take 1 capsule by mouth daily. MULTIVITAMIN-CHILDREN'S (FLINTSTONES) 18 MG CHEWABLE TABLET Chew 1 tablet daily. OMEPRAZOLE (PRILOSEC) [address] CAPSULE Take 1 capsule (20 mg) by mouth daily. Do not crush or chew. PROPRANOLOL (INDERAL) 20 MG TABLET 20 mg every evening. RESPIRATORY THERAPY SUPPLIES (CARETOUCH 2 CPAP HOSE DESULPHURING OPERATOR) MISC 11 cm. URSODIOL (ACTIGALL) 300 MG CAPSULE Take 1 capsule (300 mg) by mouth 2 times daily. Modified Medications No medications on file Discontinued Medications NYSTATIN (MYCOSTATIN) 633271 UNIT/ML SUSPENSION Swish and spit 5 mL (500,000 Units) 3 times daily. Swish and spit 5 mLs by mouth three times daily for 10 days. Medications ordered during this encounter: Outpatient Encounter Medications as of 01/22/2023 Medication Sig Dispense Refill buPROPion XL (Wellbutrin XL) 150 MG 24 hr tablet 150 mg every evening. 450mg total buPROPion XL (Wellbutrin XL) 300 MG 24 hr tablet 300 mg every evening. 450mg total calcium carbonate (Tums) 500 MG chewable tablet Chew 500 mg 3 times daily. Cholecalciferol (VITAMIN D3 PO) Take 4,000 Int'l Units by mouth before bedtime. cyanocobalamin (Vitamin B-12) 500 MCG tablet Take 500 mcg by mouth daily. Latuda 80 MG tablet Take 60 mg by mouth with evening meal. levothyroxine (Synthroid, Levoxyl) 112 MCG tablet Take 112 mcg by mouth daily. Magnesium 400 MG capsule Take 1 capsule by mouth daily. multivitamin-children's (Flintstones) 18 MG chewable tablet Chew 1 tablet daily. omeprazole (PriLOSEC) [address] capsule Take 1 capsule (20 mg) by mouth daily. Do not crush or chew. (Patient taking differently: Take 20 mg by mouth daily. Do not crush or chew.) 90 capsule 1 Respiratory Therapy Supplies (CareTouch 2 CPAP Hose Cloth Finishing Range Operator Chief) misc 11 cm. ursodiol (Actigall) 300 MG capsule Take 1 capsule (300 mg) by mouth 2 times daily. 180 capsule 0 propranolol (Inderal) 20 MG tablet 20 mg every evening. [DISCONTINUED] nystatin (Mycostatin) [id number] UNIT/ML suspension Swish and spit 5 mL (500,000 Units) 3 times daily. Swish and spit 5 mLs by mouth three times daily for 10 days. (Patient not taking: Reported on 01/22/2023) 150 mL 1 No facility-administered encounter medications on file as of 01/22/2023. Orders Placed This Encounter Procedures Zinc Folate Iron Ferritin Magnesium Vitamin B12 Comprehensive metabolic panel CBC Visit Diagnoses: 1. KARINE (obstructive sleep apnea) 2. Deficiency of multiple nutrient elements 3. Morbid obesity with BMI of 40.0-44.9, adult (HCC) 4. Encounter for postoperative care 5. 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 Cleared for all activity, no weight restrictions. All incisions healed. 2). Continue PPI until 6 month office visit 3). Labs: mag low at 1.5- d/w RD and will add 400 mg mag daily and recheck in 1 M 4). F/u at 3 month office visit with standard labs 5). Progressing diet as tolerated per RD 6). Psych concerns: No 7). Dysphagia: No 8). Weight loss: Post-op Weight Metrics: %EBWL: % EBWL: 13% Weight Change Since Last Visit: Weight Change: -2.8 lbs Weight Change from Highest Pre-op Weight: Total Weight Change: -18.8 lbs 9). If patient is a woman of childrearing age- 18-50. We discussed the importance of contraception during the first 12-18 months post op, and we discussed that fertility will increase following the procedure. Advised patient to discuss with her OBGYN regarding contraception. Patient counseled with good understanding verbalized. KARINE-compliant with CPAP GERD-continue daily PPI until 6 M post op and contact office with any change in symptoms She met with the dietitian today to review are vitamin and protein recommendations. Increase activity as recommended, the wounds are healed, no evidence of abdominal wall hernias. No nausea vomiting or dysphagia noted. Appropriate bowel function, discussed with her regarding contacting us for any questions or concerns. The lab slip was signed for the next visit, labs from 01/20/23 were reviewed -mag low at 1.5, supplement added and will recheck in 1 month. Follow-up 3 months postop. I personally performed the evaluation and management of Lana Adame in the development of a treatment plan for this patient. I personally interviewed the patient and performed an individual physical examination. In addition, I discussed the patient's condition and treatment options with them. I have also reviewed and agree with the past medical, family and social history unless otherwise noted. All of the patient's questions were answered. Patient Care Team: Patricio Buckley MD as PCP - General Dalton Martino MD as Surgeon (General Surgery) Maddie Elias (Psychiatry) [facility] PROGRESS NOTE POST WEIGHT LOSS SURGERY FOLLOW UP Patient: Lnaa Adame Service Date: 01/22/2023 Patient is 1 month(s) s/p Sleeve Gastrectomy, HH repair Today's Metrics: Post-Surgical Weight Loss Date: 01/22/23 Height: 5' 3.5 (161.3 cm) Weight: 239 lb (108 kg) BMI: 41.67 Weight Change: -2.8 lbs Total Weight Change: -18.8 lbs % EBWL: 13% Comments: 1M Pre-op Weight Metrics: Post-op Weight Metrics: %EBWL: % EBWL: 13% Weight Change Since Last Visit: Weight Change: -2.8 lbs Weight Change from Highest Pre-op Weight: Total Weight Change: -18.8 lbs Patient has the following questions: None Reported Pain: Patient rates pain on scale 0-10 as: 0 Exercise Compliance: Exercising: yes If yes: Type: walking Times per week: 6-7 Min per session: 30 Falls Risk Assessment Patient does take medications which affect BP or mental status Patient does have newly prescribed or changed dosage of medications within past 30 days which affect BP or mental status Patient has not fallen in the past 2 months Patient does not demonstrate unsteady gait Patient uses the following ambulatory assistive devices: none Patient states the presence of the following traits which increases risk of fall: none Patient is not on home O2 Labs Completed: yes - If NO, patient instructed to get labs drawn today or REBECCA If YES: Labs completed at [facility]? yes 3/7 If yes see Labs Tab Labs completed at Non-[facility] facility? N/A If yes see Encounters Tab - Orders only - Historical Provider - Date: Completed by: Alejandrina Smith [facility] 1 MONTH POST-OPERATIVE DIETITIAN VISIT Date: 01/22/23 Current diet reviewed with patient. Soft and maintenance diets discussed and. handouts provided. Patient's weight decreased by: 18.8 lbs Patient doesconsume 5-6 small meals daily: Patient s portions are adequate for current diet: -1 cup Protein requirements discussed- currently consuming ~ 40 grams of protein daily. Current protein sources: chicken, ribs, protein shake, yogurt, cottage cheese Recommendations:none Fluid requirements discussed. Current Fluid Intake: ~ 60 oz Patient does drink sugar-free, caffeine-free and carbonation-free fluids only. Patient does wait 30 minutes before and after meals to drink Exercise activities discussed. Patient does currently exercising. She was reminded that regular exercise is critical part of a successful outcome following weight loss surgery. Behavioral/Emotional changes reviewed. Patient does feel comfortable with changes in eating behaviors and associated emotional changes. She was reminded that psychological counseling is available through the [facility] post-operatively. The importance of vitamin supplements has been reviewed and the patient is taking the following: -Multivitamin with minerals and iron -Calcium -Vitamin B12 -Vitamin D3 -Other: Recent Nutrient Concerns and Vitamin Supplementation Changes: Pt compliant with vitamin/mineral protocol. Low mg noted-see TE 01/20/2023- Mg low-pt started 400 mg magnesium/day; provided high mg food list. Notes/Comments: Pt doing well. Pt to advance to maintenance diet. Pt encouraged to call/MyChart with questions. Visit completed by: Sarah Antoine RD documented in this encounter [facility] 12-23-2022 Note Discharge Summary Lana Adame : 1985 ADMIT DATE: 12/22/2022 DISCHARGE DATE: 12/23/22 PRIMARY CARE PHYSICIAN: PATRICIO BUCKLEY MD VISIT STATUS: Admission DISCHARGE DIAGNOSES: Principal Problem: Morbid obesity with BMI of 45.0-49.9, adult (CMS/HCC) (HCC) Active Problems: Gastroesophageal reflux disease without esophagitis KARINE (obstructive sleep apnea) Hiatal hernia Hepatic steatosis HOSPITAL COURSE: She underwent LSG without complications. On the morning of postoperative day #1, a negative upper gastrointestinal study was performed. Her diet was advanced, medication reconciliation completed and she was discharged home on postoperative day #1. DISCHARGE MEDICATIONS: See AVS ACTIVITY: No restriction. SIGNIFICANT DIAGNOSTIC STUDIES: Negative UGI on POD#1 COMPLEXITY OF FOLLOW UP: [x] Moderate Complexity: follow up within 7-14 calendar days (already scheduled) PENDING STUDIES: n/a RECOMMENDED NEXT STEPS: Follow-up as instructed DIET: Bariatric Clear Liquid Diet DISPOSITION: Home SIGNED: Dalton Martino MD 12/26/2022, 11:42 AM [facility] 12-23-2022 Note [facility] Respiratory Care Department Progress Note As part of the Respiratory Assessment Program (RAP), the following Respiratory Therapist evaluation has been completed, including a chart review and clinical/physical assessment. Respiratory Therapist RAP Evaluation Guideline Points 0 1 2 3 4 Points Strongly Consider History Factor No Pulmonary conditions Stable Pulmonary condition(s) Surgery or Intervention that may impact Pulmonary system (at risk) Surgery or Intervention that is impacting Pulmonary system Active Exacerbation of Pulmonary Condition 0 Respiratory Pattern Regular, RR= 12-18 DONOVAN or Increased RR= 19-24 Irregular, or RR= 25-30 SOB, talk in short sentences, or RR= 31-35 Severe SOB, accessory muscle use, one word answers, or RR>35 0 Aerosol Med(s), High Flow O2 Breath Sounds Clear Diminished in 1 lobe Diminished in ? 2 lobes Adventitious breath sounds Coarse crackles, Wheezes, or Diminished in >2 lobes 0 Aerosol Med(s), Bronchial Hygiene, Hyperinflation Cough & Sputum Strong cough, no secretion retention or production Weak cough, no secretion retention or production Weak cough, w/ production (less often than Q2hr), or secretion retention No cough, w/ secretion retention or production (less often than Q2hr) Significant secretion production (more often than Q2hr) or mucus plug 0 Aerosol Med(s), Bronchial Hygiene, Hyperinflation Level of Activity Ambulatory Ambulatory with Assist Up in chair or edge of bed (dangle) Non-ambulatory, bedridden with active ROM Completely paralyzed or without active ROM 0 Triage 5 0-2 Triage 4 3-5 Triage 3 6-10 Triage 2 11-14 Triage 1 ?15 Total 0 Triage Score = 5 TRIAGE SCORING - SUGGESTED FREQUENCIES Aerosol Therapy Bronchial Hygiene Hyperinflation Triage Score Q4h & PRN 1 Q4hWA (QID) & PRN 2 TID & PRN 3 BID & PRN 4 PRN 5 Therapy(s) Indicated Yes/No Aerosol Medication n Hyperinflation n Bronchial Hygiene n High Flow Oxygen n RT to enter/modify frequency of treatment order in EMR/EHR to match this RAP evaluation. Based on this RAP evaluation the following therapy is being initiated: albuterol At the following frequency: PRN Comments: spo2 96% R/A Thank you for involving Respiratory in the care of this patient, [facility] 12-22-2022 Note Patient: Lana gomez Procedure Summary Date: 12/22/22 Room / Location: [facility] [address] [place] [address] Operating Room Anesthesia Start: 0930 Anesthesia Stop: 1200 Procedures: LAPAROSCOPY SLEEVE GASTRECTOMY WITH LIVER WEDGE BIOPSY WITH HIATAL HERNIA REPAIR, EGD (Abdomen) UNLISTED LAPAROSCOPIC PROCEDURE LIVER (Abdomen) Diagnosis: Morbid (severe) obesity due to excess calories (HCC) Diaphragmatic hernia without obstruction or gangrene (Morbid (severe) obesity due to excess calories (HCC) [E66.01]) (Diaphragmatic hernia without obstruction or gangrene [K44.9]) Surgeons: Dalton Martino MD Responsible Provider: Orlando Villalta MD Anesthesia Type: general, regional ASA Status: 3 Anesthesia Type: general, regional Vitals Value Taken Time BP 147/87 12/22/22 1202 Temp 36.5 ?C (97.7 ?F) 12/22/22 1202 Pulse 60 12/22/22 1202 Resp 13 12/22/22 1202 SpO2 100 % 12/22/22 1202 Vitals shown include unvalidated device data. Anesthesia Post Evaluation Patient location during evaluation: PACU Patient participation: waiting for patient participation Level of consciousness: awake and alert and sleepy but conscious Pain score: 0 Pain management: satisfactory to patient Multimodal analgesia pain management approach Airway patency: patent Two or more strategies used to mitigate risk of obstructive sleep apnea Cardiovascular status: acceptable and hemodynamically stable Respiratory status: acceptable, face mask, oral airway and spontaneous ventilation Hydration status: acceptable No notable events documented. Anesthesia Post Evaluation I completed my handoff to the receiving clinician during which we: 1. Identified the patient 2. Identified the responsible provider 3. Reviewed the pertinent medical history 4. Discussed the surgical course 5. Reviewed intra-op anesthesia management and issues during anesthesia 6. Set expectations for post-procedure period 7. Allowed opportunity for questions and acknowledgement of understanding. [facility] 12-22-2022 Note Patient: Lana gomez Procedure Summary Date: 12/22/22 Room / Location: [address] Operating Room Anesthesia Start: 0930 Anesthesia Stop: Procedures: LAPAROSCOPY SLEEVE GASTRECTOMY WITH LIVER WEDGE BIOPSY WITH HIATAL HERNIA REPAIR, EGD (Abdomen) UNLISTED LAPAROSCOPIC PROCEDURE LIVER (Abdomen) Diagnosis: Morbid (severe) obesity due to excess calories (HCC) Diaphragmatic hernia without obstruction or gangrene (Morbid (severe) obesity due to excess calories (HCC) [E66.01]) (Diaphragmatic hernia without obstruction or gangrene [K44.9]) Surgeons: Dalton Martino MD Responsible Provider: Orlando Villalta MD Anesthesia Type: general, regional ASA Status: 3 Anesthesia Type: general, regional Vitals Value Taken Time BP 147/87 12/22/22 1202 Temp 36.5 ?C (97.7 ?F) 12/22/22 1202 Pulse 60 12/22/22 1202 Resp 13 12/22/22 1202 SpO2 100 % 12/22/22 1202 Vitals shown include unvalidated device data. Anesthesia Post Evaluation Patient location during evaluation: PACU Patient participation: waiting for patient participation Level of consciousness: sleepy but conscious Pain management: satisfactory to patient Airway patency: patent Dental Injury: no Cardiovascular status: acceptable, blood pressure returned to baseline and hemodynamically stable Respiratory status: acceptable, spontaneous ventilation, face mask and oral airway Hydration status: euvolemic Nausea/Vomiting: controlled No notable events documented. Patient can be discharged once all PACU criteria has been met. [facility] 12-22-2022 Note Airway Date/Time: 12/22/2022 9:41 AM Urgency: scheduled Airway not difficult General Information and Staff Patient location during procedure: Procedural Resident/LOIN TRIMMER: Shon Ahmadi CRNA Performed: LOIN TRIMMER Indications and Patient Condition Indications for airway management: anesthesia Sedation level: Asleep Preoxygenated: yes Patient position: sniffing Mask difficulty assessment: 2 - vent by mask + OA or adjuvant +/- NMBA Final Airway Details Final airway type: endotracheal airway Successful airway: ETT Cuffed: yes Successful intubation technique: video laryngoscopy Blade: Enigma scope Blade size: #3 ETT size (mm): 7.0 Cormack-Lehane Classification: grade I - full view of glottis Placement verified by: chest auscultation and capnometry Measured from: lips ETT to lips (cm): 22 Number of attempts at approach: 1 [facility] 12-22-2022 Note Peripheral Block Time Out: 12/22/2022 9:43 AM Patient location during procedure: Procedural Start time: 12/22/2022 9:43 AM End time: 12/22/2022 9:45 AM Reason for block: at surgeon's request and post-op pain management Staffing Performed: LOIN TRIMMER Resident/LOIN TRIMMER: Abiel Queen APRN - TERRENCE Preanesthetic Checklist Completed: patient identified, IV checked, site marked, risks and benefits discussed, surgical consent, monitors and equipment checked, pre-op evaluation and timeout performed Region: [place] Primary: TAP (Bupivacaine 0.375%/ Epi 1:200,000/ Dex 0.1mg/mL 40ml divided evenly bilateral) Secondary: Upper rectus (Bupivacaine 0.375%/ Epi 1:200,000/ Dex 0.1mg/mL 20ml divided evenly bilateral) Peripheral Block Patient position: supine Prep: ChloraPrep Patient monitoring: heart rate, conveyor monitor, continuous pulse ox and continuous capnometry O2: ETT/LMA Laterality: bilateral Injection technique: single-shot Guidance: ultrasound guided -image retained in chart, tip of the needle identified by ultraound during injection. Needle Needle: 21G X 110 mm Additional Notes 12/22/2022 9:43 AM Assessment Injection assessment: negative aspiration for heme, no paresthesia on injection and incremental injection Heart rate change: no Slow fractionated injection: yes Required Documentation: Relevant anatomy identified (Nerves, Vessels, Muscles), Negative for blood on aspiration, Local anesthetic injected incrementally with intermittent aspiration every 5 mL, Normal resistance with injection, No EKG changes noted, No symptoms of toxicity, Local anesthetic spread visualized around nerves or plane. and Local anesthetic injected without difficultyMedications [id number]-tocmqrxzime-hzaxktj rine (TAP) syringe - Injection 60 mL - 12/22/2022 9:43:00 AM [facility] 12-22-2022 Note [facility] - Surgery [facility] Physicians Surgery Patient Name: Lana Adame Date: 12/22/22 Update History & Physical The patient's History and Physical was reviewed with the patient and there were no significant changes. I examined the patient and there were no significant changes from the previous History and Physical. I verify that the patient's condition and planned treatment has not changed. I also confirm the necessity for the procedure still present. Plan: The risk, benefits, expected outcome, and alternative to the recommended procedure have been discussed with the patient. Patient understands and wants to proceed with the procedure. MO Plan LSG [facility] 12-15-2022 Note Patient: Lana gomez Procedure Information Date/Time: 12/22/22 0930 Procedures: LAPAROSCOPY SLEEVE GASTRECTOMY WITH LIVER WEDGE BIOPSY WITH HIATAL HERNIA REPAIR, POSSIBLE OPEN (Abdomen) - 180 MINUTES TOTAL UNLISTED LAPAROSCOPIC PROCEDURE LIVER (Abdomen) LAPAROSCOPY REPAIR PARAESOPHAGEAL HERNIA INCLUDING FUNDOPLASTY (Abdomen) Location: [facility] OR [address] [place] [address] Operating Room Surgeons: Dalton Martino MD Past Medical History: Past Medical History: No date: Back pain 03/28/2021: COVID-19 vaccine series completed No date: Difficulty sleeping No date: Heartburn Comment: MILD No date: History of recurrent UTIs No date: Hypothyroidism No date: KARINE on CPAP No date: Seizures (CMS/HCC) (HCC) Comment: happened x 3, cause undetermined No date: Snoring No date: SOBOE (shortness of breath on exertion) Past Surgical History: Past Surgical History: 06/10/2022: UPPER GASTROINTESTINAL ENDOSCOPY Social History: TOBACCO: reports that she has quit smoking. Her smoking use included cigarettes. She has a 0.19 pack-year smoking history. She has never used smokeless tobacco. ETOH: reports that she does not currently use alcohol after a past usage of about 2.0 standard drinks per week. Social History Substance and Sexual Activity Drug Use Never Family History: Family History Problem Relation Name Age of Onset ? Hypertension Father ? Hypertension Mother ? Obesity Mother ? Cancer Paternal Grandfather LUNG ? Obesity Maternal Grandfather ? Hypertension Maternal Grandfather ? Obesity Father ? Stroke Maternal Grandfather ? Obesity Paternal Grandfather Screening: Having periods Clinical information reviewed: Tobacco Allergies Meds Med Hx Surg Hx OB Status Fam Hx Soc Hx Physical Exam Airway Mallampati: III TM distance: >3 FB Neck ROM: full Mouth Open: normalendotracheal tube not in place Cardiovascular Dental Pulmonary Abdominal Anesthesia Plan ASA 3 general and regional The patient is not a current smoker. Anesthetic plan and risks discussed with patient. patient is NPO General ERAS KARINE Screening Labs: Lab Results Component Value Date WBC 8.3 12/04/2022 HGB 13.3 12/04/2022 HCT 38.8 12/04/2022 MCV 90.2 12/04/2022 PLT 296 12/04/2022 Lab Results Component Value Date NA 139 12/04/2022 K 4.2 12/04/2022 CL 105 12/04/2022 CO2 25 12/04/2022 BUN 13 12/04/2022 CREATININE 1.02 12/04/2022 GLUCOSE 120 (H) 12/04/2022 CALCIUM 9.1 12/04/2022 EGFR 72.8 12/04/2022 Pain Score: 3 No echocardiogram results found for the past 14 days 12/04/22 ECG 12-LEAD 12/05/2022 9:32 AM (Final) Impression Sinus rhythm Normal EKG Electronically Signed On 1-27-2023 9:32:59 EST by Hermes Lopez Signed by: Hermes Lopez MD on 12/05/2022 9:32 AM [facility] 12-15-2022 Note Comprehensive PreSur gical History and Physical Name: Lana Adame : 1985 (Age-37 y.o.) Date of Service: Pt seen/examined on 12/15/2022 Procedure Information Date/Time: 12/22/22 0930 Procedures: LAPAROSCOPY SLEEVE GASTRECTOMY WITH LIVER WEDGE BIOPSY WITH HIATAL HERNIA REPAIR, POSSIBLE OPEN (Abdomen) - 180 MINUTES TOTAL UNLISTED LAPAROSCOPIC PROCEDURE LIVER (Abdomen) LAPAROSCOPY REPAIR PARAESOPHAGEAL HERNIA INCLUDING FUNDOPLASTY (Abdomen) Location: [facility] OR [address] [place] [address] Operating Room Surgeons: Dalton Martino MD Chief Complaint: Morbid (severe) obesity due to excess calories (HCC) [E66.01] Diaphragmatic hernia without obstruction or gangrene [K44.9] History Of Present Illness: 37 y.o. female who we are asked to see/evaluate by Dr. Martino for pre-operative evaluation prior to SX 12/22/22. ? Patient proceeding with the above procedure for weight loss and to reduce associated comorbidities. Patient denies exertional chest pain/shortness of breath. Denies dizziness, syncope, lightheadedness. Denies fever, chills, weakness or fatigue. Patient denies any recent wounds. Patient denies abdominal pain, nausea, vomiting, diarrhea, or constipation. Patient denies hx of CAD, CHF, HI, TIA/CVA, diabetes, COPD, asthma, DVT/PE. +sore throat Past Medical History: Past Medical History: No date: Back pain 03/28/2021: COVID-19 vaccine series completed No date: Difficulty sleeping No date: Heartburn Comment: MILD No date: History of recurrent UTIs No date: Hypothyroidism No date: KARINE on CPAP No date: Seizures (CMS/HCC) (HCC) Comment: happened x 3, cause undetermined No date: Snoring No date: SOBOE (shortness of breath on exertion) Past Surgical History: Past Surgical History: 06/10/2022: UPPER GASTROINTESTINAL ENDOSCOPY Medications Prior to Admission: Current Outpatient Medications on File Prior to Visit Medication Sig Dispense Refill buPROPion XL (Wellbutrin XL) 150 MG 24 hr tablet every evening. 450mg total buPROPion XL (Wellbutrin XL) 300 MG 24 hr tablet every evening. 450mg total Latuda 80 MG tablet with evening meal. levothyroxine (Synthroid, Levoxyl) 112 MCG tablet Take 112 mcg by mouth daily. propranolol (Inderal) 20 MG tablet every evening. Respiratory Therapy Supplies (CareTouch 2 CPAP Hose Cloth Finishing Range Operator Chief) misc 11 cm. omeprazole (PriLOSEC) [address] capsule Take 1 capsule (20 mg) by mouth daily. Do not crush or chew. 90 capsule 1 ursodiol (Actigall) 300 MG capsule Take 1 capsule (300 mg) by mouth 2 times daily. 180 capsule 0 [DISCONTINUED] norethindrone-ethinyl estradiol (Microgestin 11/28) 1-20 MG-MCG tablet No current facility-administered medications on file prior to visit. CHRONIC NARCOTIC USE: No Allergies: Bee venom Can the patient take acetaminophen: Yes Social History: TOBACCO: reports that she has quit smoking. Her smoking use included cigarettes. She has a 0.19 pack-year smoking history. She has never used smokeless tobacco. ETOH: reports that she does not currently use alcohol after a past usage of about 2.0 standard drinks per week. Social History Substance and Sexual Activity Drug Use Never Family History: Family History Problem Relation Name Age of Onset Hypertension Father Hypertension Mother Obesity Mother Cancer Paternal Grandfather LUNG Obesity Maternal Grandfather Hypertension Maternal Grandfather Obesity Father Stroke Maternal Grandfather Obesity Paternal Grandfather REVIEW OF SYSTEMS: Review of Systems Constitutional: Negative for fatigue and fever. HENT: Positive for sore throat. Negative for congestion. Respiratory: Negative for cough, chest tightness and shortness of breath. Cardiovascular: Negative for chest pain and palpitations. Gastrointestinal: Negative for diarrhea and vomiting. Skin: Negative for rash and wound. Neurological: Negative for syncope, weakness and headaches. Psychiatric/Behavioral: Negative for agitation. Physical Exam: Physical Exam Constitutional: Appearance: Normal appearance. She is obese. HENT: Head: Normocephalic and atraumatic. Nose: Nose normal. Eyes: Extraocular Movements: Extraocular movements intact. Cardiovascular: Rate and Rhythm: Normal rate and regular rhythm. Heart sounds: Normal heart sounds. Pulmonary: Effort: Pulmonary effort is normal. Breath sounds: Normal breath sounds. Musculoskeletal: General: Normal range of motion. Cervical back: Neck supple. Skin: General: Skin is warm and dry. Neurological: General: No focal deficit present. Mental Status: She is alert. Psychiatric: Mood and Affect: Mood normal. Behavior: Behavior normal. Vitals: Vitals Value Taken Time BP 134/74 12/15/22901 Temp 36.1 ?C (96.9 ?F) 12/15/22901 Pulse 78 12/15/22901 Resp 16 12/15/22901 SpO2 94 % 12/15/22901 Labs: Lab Results Component Value Date WBC 8.3 12/04/2022 HGB 13.3 12/04/2022 HCT 38.8 (more content not included)... [facility] 12-15-2022 Note Comprehensive PreSur gical History and Physical Name: Lana Adame : 1985 (Age-37 y.o.) Date of Service: Pt seen/examined on 12/15/2022 Procedure Information Date/Time: 12/22/22929 Procedures: LAPAROSCOPY SLEEVE GASTRECTOMY WITH LIVER WEDGE BIOPSY WITH HIATAL HERNIA REPAIR, POSSIBLE OPEN (Abdomen) - 180 MINUTES TOTAL UNLISTED LAPAROSCOPIC PROCEDURE LIVER (Abdomen) LAPAROSCOPY REPAIR PARAESOPHAGEAL HERNIA INCLUDING FUNDOPLASTY (Abdomen) Location: [facility] OR [address] [place] [address] Operating Room Surgeons: Dalton Martino MD Chief Complaint: Morbid (severe) obesity due to excess calories (HCC) [E66.01] Diaphragmatic hernia without obstruction or gangrene [K44.9] History Of Present Illness: 37 y.o. female who we are asked to see/evaluate by Dr. Martino for pre-operative evaluation prior to SX 12/22/22. ? Patient proceeding with the above procedure for weight loss and to reduce associated comorbidities. Patient denies exertional chest pain/shortness of breath. Denies dizziness, syncope, lightheadedness. Denies fever, chills, weakness or fatigue. Patient denies any recent wounds. Patient denies abdominal pain, nausea, vomiting, diarrhea, or constipation. Patient denies hx of CAD, CHF, HI, TIA/CVA, diabetes, COPD, asthma, DVT/PE. +sore throat Past Medical History: Past Medical History: No date: Back pain 03/28/2021: COVID-19 vaccine series completed No date: Difficulty sleeping No date: Heartburn Comment: MILD No date: History of recurrent UTIs No date: Hypothyroidism No date: KARINE on CPAP No date: Seizures (CMS/HCC) (HCC) Comment: happened x 3, cause undetermined No date: Snoring No date: SOBOE (shortness of breath on exertion) Past Surgical History: Past Surgical History: 06/10/2022: UPPER GASTROINTESTINAL ENDOSCOPY Medications Prior to Admission: Current Outpatient Medications on File Prior to Visit Medication Sig Dispense Refill buPROPion XL (Wellbutrin XL) 150 MG 24 hr tablet every evening. 450mg total buPROPion XL (Wellbutrin XL) 300 MG 24 hr tablet every evening. 450mg total Latuda 80 MG tablet with evening meal. levothyroxine (Synthroid, Levoxyl) 112 MCG tablet Take 112 mcg by mouth daily. propranolol (Inderal) 20 MG tablet every evening. Respiratory Therapy Supplies (CareTouch 2 CPAP Hose Cloth Finishing Range Operator Chief) misc 11 cm. omeprazole (PriLOSEC) [address] capsule Take 1 capsule (20 mg) by mouth daily. Do not crush or chew. 90 capsule 1 ursodiol (Actigall) 300 MG capsule Take 1 capsule (300 mg) by mouth 2 times daily. 180 capsule 0 [DISCONTINUED] norethindrone-ethinyl estradiol (Microgestin 11/28) 1-20 MG-MCG tablet No current facility-administered medications on file prior to visit. CHRONIC NARCOTIC USE: No Allergies: Bee venom Can the patient take acetaminophen: Yes Social History: TOBACCO: reports that she has quit smoking. Her smoking use included cigarettes. She has a 0.19 pack-year smoking history. She has never used smokeless tobacco. ETOH: reports that she does not currently use alcohol after a past usage of about 2.0 standard drinks per week. Social History Substance and Sexual Activity Drug Use Never Family History: Family History Problem Relation Name Age of Onset Hypertension Father Hypertension Mother Obesity Mother Cancer Paternal Grandfather LUNG Obesity Maternal Grandfather Hypertension Maternal Grandfather Obesity Father Stroke Maternal Grandfather Obesity Paternal Grandfather REVIEW OF SYSTEMS: Review of Systems Constitutional: Negative for fatigue and fever. HENT: Positive for sore throat. Negative for congestion. Respiratory: Negative for cough, chest tightness and shortness of breath. Cardiovascular: Negative for chest pain and palpitations. Gastrointestinal: Negative for diarrhea and vomiting. Skin: Negative for rash and wound. Neurological: Negative for syncope, weakness and headaches. Psychiatric/Behavioral: Negative for agitation. Physical Exam: Physical Exam Constitutional: Appearance: Normal appearance. She is obese. HENT: Head: Normocephalic and atraumatic. Nose: Nose normal. Eyes: Extraocular Movements: Extraocular movements intact. Cardiovascular: Rate and Rhythm: Normal rate and regular rhythm. Heart sounds: Normal heart sounds. Pulmonary: Effort: Pulmonary effort is normal. Breath sounds: Normal breath sounds. Musculoskeletal: General: Normal range of motion. Cervical back: Neck supple. Skin: General: Skin is warm and dry. Neurological: General: No focal deficit present. Mental Status: She is alert. Psychiatric: Mood and Affect: Mood normal. Behavior: Behavior normal. Vitals: Vitals Value Taken Time BP 134/74 12/15/22 09 Temp 36.1 ?C (96.9 ?F) 12/15/22 09 Pulse 78 12/15/22 09 Resp 16 12/15/22 09 SpO2 94 % 12/15/22901 Labs: Lab Results Component Value Date WBC 8.3 12/04/2022 HGB 13.3 12/04/2022 HCT 38.8 (more content not included)... [facility] 12-15-2022 Note Patient: Lana gomez Procedure Information Date/Time: 12/22/22929 Procedures: LAPAROSCOPY SLEEVE GASTRECTOMY WITH LIVER WEDGE BIOPSY WITH HIATAL HERNIA REPAIR, POSSIBLE OPEN (Abdomen) - 180 MINUTES TOTAL UNLISTED LAPAROSCOPIC PROCEDURE LIVER (Abdomen) LAPAROSCOPY REPAIR PARAESOPHAGEAL HERNIA INCLUDING FUNDOPLASTY (Abdomen) Location: [facility] Operating Room Surgeons: Dalton Martino MD Relevant Problems Anesthesia (+) KARINE (obstructive sleep apnea) Endo (+) Hypothyroidism GI (+) Gastroesophageal reflux disease without esophagitis (+) Hiatal hernia Pulmonary (+) KARINE (obstructive sleep apnea) Past Medical History: Past Medical History: No date: Back pain 03/28/2021: COVID-19 vaccine series completed No date: Difficulty sleeping No date: Heartburn Comment: MILD No date: History of recurrent UTIs No date: Hypothyroidism No date: KARINE on CPAP No date: Seizures (CMS/HCC) (HCC) No date: Snoring No date: SOBOE (shortness of breath on exertion) Past Surgical History: Past Surgical History: 06/10/2022: UPPER GASTROINTESTINAL ENDOSCOPY Social History: TOBACCO: reports that she has quit smoking. She has never used smokeless tobacco. ETOH: reports current alcohol use of about 2.0 standard drinks per week. Social History Substance and Sexual Activity Drug Use Never Family History: Family History Problem Relation Name Age of Onset ? Hypertension Father ? Hypertension Mother ? Obesity Mother ? Cancer Paternal Grandfather LUNG ? Obesity Maternal Grandfather ? Hypertension Maternal Grandfather ? Obesity Father ? Stroke Maternal Grandfather ? Obesity Paternal Grandfather Screening: Unknown Clinical information reviewed: Physical Exam Airway TM distance: >3 FB Neck ROM: full Mouth Open: normalendotracheal tube not in place Cardiovascular Dental Pulmonary Abdominal Anesthesia Plan ASA 3 general KARINE Screening - previously diagnosed Labs: Lab Results Component Value Date WBC 8.3 12/04/2022 HGB 13.3 12/04/2022 HCT 38.8 12/04/2022 MCV 90.2 12/04/2022 PLT 296 12/04/2022 Lab Results Component Value Date NA 139 12/04/2022 K 4.2 12/04/2022 CL 105 12/04/2022 CO2 25 12/04/2022 BUN 13 12/04/2022 CREATININE 1.02 12/04/2022 GLUCOSE 120 (H) 12/04/2022 CALCIUM 9.1 12/04/2022 EGFR 72.8 12/04/2022 No echocardiogram results found for the past 14 days 12/04/22 ECG 12-LEAD 12/05/2022 9:32 AM (Final) Impression Sinus rhythm Normal EKG Electronically Signed On 12-05-2022 9:32:59 EST by Hermes Lpoez Signed by: Hermes Lopez MD on 12/05/2022 9:32 AM [facility] 06-10-2022 Hospital Discharge instructions Chiara Jalloh RN - 06/10/2022 8:12 AM EDT Upper GI Endoscopy: What to expect at home ACTIVITY: DO NOT DRIVE, OPERATE MACHINERY, OR DRINK ANY ALCOHOL TODAY. Avoid making critical decisions, signing legal documents, or performing any activity that requires alertness for the rest of the day. You may be bloated or have gas pains since air was introduced into the stomach for the procedure. You may need to pass the gas throughout the day. You may experience a mild sore throat. You may use an icum-oza-ucfrnnr chloraseptic spray, gargle with warm salt water, or use throat lozenges. Notify your physician if this feeling lasts more than 48 hours. Rest the remainder of the day. You may resume normal activity tomorrow. You may return to work tomorrow. DIET: You may resume a normal diet unless notified or recommended by your physician. You may be eager to eat a large meal after fasting, but it is a good idea to start with light meals and ease into solid foods the first day. (*) If your stomach is upset, try clear liquids and bland, low-fat foods like plain toast or rice. Drink plenty of fluids for the first 24 hours (unless your physician states otherwise). MEDICATION: Resume your normal home medications unless notified or recommended by your physician. If you take blood thinners (such as Coumadin, Eliquis, Plavix, Aspirin, etc.) or anti-inflammatory medications (Advil, Motrin, Aleve, etc.), ask your physician when you may resume these medications. FOLLOW-UP APPOINTMENT: Follow up with or call your physician as needed. When to call for help: Call your doctor IMMEDIATELY or seek medical care if you experience: Severe pain or vomiting Coughing up more than a teaspoon of blood You pass a large amount of tar-like stools Your belly is swollen and firm with severe pain A fever greater than 101 degrees Redness or swelling of arm from the IV site for more than 48 hours Sudden onset of chest pain or shortness of breath If you become extremely dizzy or pass out (lose consciousness) IF YOU ARE UNABLE TO REACH YOUR PHYSICIAN GO TO NEAREST EMERGENCY DEPARTMENT documented in this encounter [facility] Work Phone: documented in this encounter [facility] Work Phone: Evaluation note* Diagnosis Gastroesophageal reflux disease without esophagitis- Primary Esophageal reflux Chronic superficial gastritis without bleeding Atrophic gastritis without mention of hemorrhage Morbid obesity due to excess calories (HCC) documented in this encounter [facility] Work Phone: Evaluation note* Diagnosis Morbid obesity due to excess calories (HCC)- Primary Pre-operative laboratory examination Pre-procedural laboratory examination Morbid (severe) obesity due to excess calories (HCC)- Primary Encounter for preprocedural laboratory examination Morbid obesity due to excess calories (HCC) Pre-operative laboratory examination Pre-procedural laboratory examination documented in this encounter [facility]* Diagnosis KARINE (obstructive sleep apnea)- Primary Obstructive sleep apnea (adult) (pediatric) Deficiency of multiple nutrient elements Other nutritional deficiency Morbid obesity with BMI of 40.0-44.9, adult (HCC) Encounter for postoperative care GERD without esophagitis Esophageal reflux documented in this encounter [facility]* Diagnosis Deficiency of multiple nutrient elements- Primary Other nutritional deficiency Class 1 obesity due to excess calories with serious comorbidity and body mass index (BMI) of 32.0 to 32.9 in adult KARINE (obstructive sleep apnea) Obstructive sleep apnea (adult) (pediatric) documented in this encounter [facility]* Diagnosis High vitamin D level- Primary Hypervitaminosis D Low glucose level High serum vitamin B12 Elevated total protein Other nonspecific findings on examination of blood documented in this encounter [facility]* Diagnosis Encounter for gynecological examination (general) (routine) without abnormal findings- Primary Screening for cervical cancer Screening for malignant neoplasm of the cervix Encounter for screening for human papillomavirus (HPV) Special screening examination for human papillomavirus (HPV) documented in this encounter [facility] Summary Purpose Family History No Family History Records FoundNo Family History Records FoundNo Family History Records FoundNo Family History Records FoundNo Family History Records Found Advance Directives No Advanced Directives Records FoundLatest Code Status on File Code Status Date Activated Date Inactivated Comments Full Code 06/10/2022 7:07 AM Latest Code Status on File Code Status Date Activated Date Inactivated Comments Full Code 06/10/2022 7:07 AM 06/10/2022 11:08 AM Latest Code Status on File Code Status Date Activated Date Inactivated Comments Full Code 12/22/2022 4:05 PM 12/23/2022 6:43 PM Code Status History Code Status Date Activated Date Inactivated Comments Full Code 12/22/2022 8:46 AM 12/22/2022 4:05 PM Hospital Course Note HNO ID: [id number] Author: Jacy Elias Service: Psychiatry Author Type: Physician Type: Discharge Summary Filed: 11/28/2020 11:11 AM Note Text: 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 They had an argument last night and she felt helpless and worthless which caused her to go into the closet and want to harm herself with a razor blade. She endorsed having suicidal ideation last night but no intent or plan. She desc (more content not included)... Reason for Referral Specialty Diagnoses / Procedures Referred By Natali fernandez Referred To Contact Radiology Diagnoses Generalized abdominal pain Procedures US ABDOMEN COMPLETE Maximo Webb PA [address] [place] [address] Referral ID Status Reason Start Date Expiration Date Visits Re quested Visits Authorized [id number] Open 03/07/2022 03/07/2023 1 1 Additional Source Comments INFORMATION SOURCE (unrecogn ized section and content) DATE CREATED AUTHOR AUTHOR'S ORGANIZ ATION 12/01/2020 [facility] DATE CREATED AUTHOR AUTHOR'S ORGANIZ ATION 08/20/2022 [facility] DATE CREATED AUTHOR AUTHOR'S ORGANIZ ATION 06/24/2023 [facility] DATE CREATED AUTHOR AUTHOR'S ORGANIZ ATION 08/12/2023 [facility] Care Teams (unrecognized sec tion and content) Sinker Winder Relationship Specialty Start Date End Date Patricio Buckley MD [address] [place] [address] PCP - General Family Medicine 02/24/22 Sinker Winder Relationship Specialty Start Date End Date Patricio Buckley MD [address] [facility] [address] [place] [address] PCP - General Family Medicine 02/24/22 Sinker Winder Relationship Specialty Start Date End Date Patricio Buckley MD [address] [facility] [address] [place] [address] PCP - General Family Medicine 02/24/22 Sinker Winder Relationship Specialty Start Date End Date Patricio Buckley MD [address] [facility] [address] [place] [phone] PCP - General 02/24/22 Dalton Martino MD [address] [facility] [address] [place] [address] Surgeon General Surgery 12/03/22 Curt, Madd[address] [place] [address] Psychiatry 12/04/22 Sinker Winder Relationship Specialty Start Date End Date Patricio Buckley MD [address] [facility] [address] [place] [address] PCP - General 02/24/22 Dalton Martino MD [address] [facility] [address] [place] [address] Surgeon General Surgery 12/03/22 Curt, Madd[address] [place] [address] Psychiatry 12/04/22 Sinker Winder Relationship Specialty Start Date End Date Patricio Buckley MD [address] [facility] [address] [place] [address] PCP - General 02/24/22 Dalton Martino MD [address] [facility] [address] [place], [place] [id number] Surgeon General Surgery 12/03/22 Maddie Elias [address] [place] [phone] Psychiatry 12/04/22 Sinker Winder Relationship Specialty Start Date End Date Patricio Buckley MD [address] [facility] [address] [place] [phone] PCP - General 02/24/22 Dalton Martino MD [address] [facility] [address] [place], [place] [id number] Surgeon General Surgery 12/03/22 Maddie Elias [address] [place] [phone] Psychiatry 12/04/22 Sinker Winder Relationship Specialty Start Date End Date Patricio Buckley MD PCP - General Family Medicine 07/20/14 Reason for Visit (unrecogniz ed section and content) Reason Comments Bariatrics Post Op Follow-up 7m Reason Onset Date Comments Abnormal Lab 07/21/2023 Hypoglycemia, el evated total protein, B12 Reason Comments Yearly Exam Source Comments (unrecognize d section and content) In the event this informatio n is protected by the Federal Confidentiality of Alcohol and Drug Abuse Patient Records regulations: The Federal rules restrict any use of the information to criminally investigate or prosecute any alcohol or drug abuse patient.[facility] FOR RECORDS PERTAINING TO PATIENTS WHO ARE OR HAVE BEEN ENROLLED IN A CHEMICAL DEPENDENCY/SUBSTANCEABUSE PROGRAM, SOME INFORMATION MAY BE OMITTED. This clinical summary was aggregated from multiple sources. Caution should be exercised in using it in the provision of clinical care. This summary normalizes information from multiple sources, and as a consequence, information in this document may materially change the coding, format and clinical context of patient data. In addition, data may be omitted in some cases. CLINICAL DECISIONS SHOULD BE BASED ON THE PRIMARY CLINICAL RECORDS. [facility]. provides no warranty or guarantee of the accuracy or completeness of information in this document.
[2023-11-23 15:16] LABS: Hematocrit 40.6 % (37-47); Mean Corpuscular Volume 90.6 fL (81-99); Mean Platelet Vol. 11.6 fl (6.2-12.0); Platelet Count 309 K/mm3 (150-450); RBC Distribution Width CV 12.7 % (11.6-14.6); RBC Distribution Width SD 41.6 fl (35.1-43.9); Red Blood Count 4.48 M/mm3 (4.2-5.4); White Blood Count 7.2 K/mm3 (4.4-11.0)
[2023-11-23 15:47] LABS: Vitamin B12 1045 pg/mL (211-911); Vitamin D,25 Hydroxy 65.9 ng/mL
[2023-11-23 16:06] LABS: AST(SGOT) 19 U/L (15-37); Alanine Aminotransfer ALT/SGPT 27 U/L (13-56); Albumin, Serum 3.7 g/dL (3.2-5.0); Alkaline Phosphatase 74 U/L (45-117); Anion Gap 6 (5-15); BUN 8 mg/dL (7-18); BUN/Creat Ratio 8.7 RATIO (10-20); Calcium,Total 9.3 mg/dL (8.5-10.1); Chloride 107 mmol/L (98-107); Cholesterol 171 mg/dL (200); Creatinine, Serum 0.92 mg/dL (0.55-1.02); EST Glomerular Filtration Rate 72 mL/min (>60); Est Glom Filt Rate - Afr Amer 88 mL/min (>60); Ferritin 10 ng/mL (8-252); Globulin 3.6 g/dL (2.2-4.2); Glucose 80 mg/dL (74-106); High Density Lipoprotein 66 mg/dL; Iron 93 ug/dL (50-170); Magnesium 1.9 mg/dL (1.6-2.6); Potassium 4.1 mmol/L (3.5-5.1); Protein, Total 7.3 g/dL (6.4-8.2); Sodium Level 140 mmol/L (136-145); Triglycerides 72 mg/dL; Very Low Density Lipoprotein 14 mg/dL (5-40)
[2023-11-29 12:07] LABS: Vitamin B1, Thiamine 138.4 nmol/L (66.5-200.0); Zinc, Plasma or Serum 75 ug/dL (44-115)
== END | disposition home or self-care (01) ==
LOC: MTLAB 11:34
PROVIDERS: PCP Family Medicine; Referring Provider Physician Assistant; Visit Provider Physician Assistant
DX: E61.7 Deficiency of multiple nutrient elements (principal); E66.09 Other obesity due to excess calories; Z68.32 Body mass index [BMI] 32.0-32.9, adult
CPT/HCPCS: 36415; 80053; 80061; 82306; 82607; 82728; 82746; 83540; 83735; 84425; 84630; 85027

== ENCOUNTER 2024-02-17 13:30 | Outpatient (RCR) | payer OTHER, SELFPAY ==
--- NOTE | 2024-01-27 16:34 | HP.PTEVAL_ITS ---
Patient's Visit Information Visit Information Visit Information: FIORELLA ADAME is a 38 year old F referred to Physical Therapy by Dr. Patricio Moeller MD with a diagnosis of Upper L back pain. Date of Evaluation: 01/27/24 Physical Therapist: Minh Mcleod, DPT, OCS, CSCS Visit Plan Frequency: 2x /Week Duration: 4-6 Weeks Plan: 2x/week for 4-6 weeks... please start with Julia based cervical ret ext ROM progression and PA cervical adn upper thoracic mobs until full ROM, sTM Lower cervical area. MH, manual traction. and PROM ext with OP Also postural and cervical strength and teach and progress to HEP. Postural focus. Monitor numbness L scap area. Subjective Subjective: Pulled a muscle in back a couple weeks ago and woke up with pain. This has happened multiple times. Pain is R neck and scapula, also has L scap numbness. No symptoms in UE. Since then has gotten better has gotten 90% better. Pain this week 0/10 , pain gone and still has L scap numbness. Not weak. Numbness is intermittent and worse with sitting. Sleep is not imerrupted. 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 Not missing work but worse after work. Basic ADLs are getting done. No problems. Hobbies: reading and sometimes worse. No regular ex outside of walking. Pain R neck.: Pain Intensity (Out of 10): 0 Pain Intensity Range: 0 and 5 Comment: not in a week Objective Objective: Posture is forward head adn protracted scap with some structural kyphosis in lower cervical area. Tender to touch in this area in cervical paraspinals, PA pressure slightly painful. + c/s compression test. cervical AROM ext 45 to start but 65 after repeated ret/ext, some pain R cervical. rotations are full with R sided tightness both direcitons, SB are symmetrical. scap aROM is full and preference for elevation. UE AROM WFL adn without pain. reflexes bi and tri 2/3 sensation WNL to gross light touch in UE. strength UE 4/5 without myotomal problems, weakness evident in scap stabilizers and upper back with arm testing. repeated cervical retraction extension improves ROM quickly into ext . Balance/Special Test Scores Oswestry Low Back Score: 6 Goals Goal 1:: Sleep without interruption at night and wake without pain Goal Time Frame: 4-6 Weeks Goal 2:: Full aROM rotations and extension cervical spine without symptoms Goal Time Frame: 4-6 Weeks Goal 3:: Pt feel symptoms 99% better and abolish numbness Goal Time Frame: 4-6 Weeks Goal 4:: I appropriate HEP to limit future problems Goal Time Frame: 4-6 Weeks Rehabilitation Potential Physical Therapy Diagnosis: limited neck ROM and pain causing functional deficits Rehabilitation Potential: Good Anticipated Interventions Patient/Client Instruction: Educate patient on: Condition and Plan of Care For the Purpose of:: To decrease pain, To increase ROM, To improve nutrient delivery to tissue, To improve muscle performance and motor function and To increase tolerance to activity/condition/position Therapeutic Exercise to Include: Strength training, Flexibilty training, Passive ROM, Active ROM, Julia Exercises and Scapular Strength/Stabilization For the Purpose of:: To decrease pain, To increase ROM, To improve nutrient delivery to tissue, To improve muscle performance and motor function, To increase tolerance to activity/condition/position, To improve ability of physical actions for home/community/work/leisure and To improve gait and locomotor functions Manual Therapy Techniques to Include: Mobilization, Passive ROM and Soft tissue mobilization For the Purpose of:: To decrease pain, To increase ROM, To improve nutrient delivery to tissue, To improve muscle performance and motor function, To increase tolerance to activity/condition/position and To improve ability of physical actions for home/community/work/leisure Thermo therapy (hot pack): Yes For the Purpose of:: To decrease pain and To improve nutrient delivery to tissue Text: Thank you for the opportunity to evaluate your patient. For Medicare and Medicare HMO plans, please review the plan of care and approve it. It will need to be FAXED BACK to us at [phone] for Medicare purposes. For Medicare only, by signing this I certify the plan of care. Please let me know if there are questions or concerns regarding this plan of care. Physician Signature: ____Date:
--- NOTE | 2024-02-17 14:10 | HP.PTDCSUM ---
Discharge Summary D/C summary: It has been my pleasure to treat FIORELLA ADAME referred by Dr. Patricio Moeller MD, with the diagnosis of Upper L back pain for a total of 7 visit(s). Discharge Date: 02/17/24 Please see the following information for a summary of their discharge status. Subjective Subjective: Better. Pain is less intense and less often. Pain up to 3/10 this week intermittently and brought on with work. Sleep is not generally a problem. Activities at home are normal but worse with lifting. Work is looking down adn in one position a lot of day. Dr. Moeller is not on schedule. HEP helps to 2x10 with orange and yellow. Pain R neck.: Pain Intensity (Out of 10): 0 Overall Improvement % Improvement: 90 Objective Objective/Function: 85 rotation ROM B without pain. ext to 88 ext without pain. still slightly protracted in sitting but corrects I with VC. Goals Goal 1:: Sleep without interruption at night and wake without pain Goal Progress: Goal Met Goal 2:: Full aROM rotations and extension cervical spine without symptoms Goal Progress: Goal Met Goal 3:: Pt feel symptoms 99% better and abolish numbness Goal Progress: 90% Goal 4:: I appropriate HEP to limit future problems Goal Progress: Goal Met Plan Plan: d/c to HEP D/C Information d/c sentence: If there are questions or concerns regarding this patient's physical therapy, please feel free to call me at [phone]. Thank you for the referral of this patient. Sincerely, Minh Mcleod, DPT, OCS, CSCS Balance/Gait/Functional tests Balance/Special Test Scores Oswestry Low Back Score: 6 Oswestry Neck Score: 7 Improvement % Improvement: 90
== END 2024-02-17 19:00 | disposition home or self-care (01) ==
LOC: PT 13:30
PROVIDERS: PCP Family Medicine; Referring Provider Family Medicine; Visit Provider Family Medicine
DX: M54.89 Other dorsalgia (principal)
CPT/HCPCS: 97110; 97140; 97161

== ENCOUNTER → 2024-05-18 | Outpatient (CLI) | payer OTHER, SELFPAY ==
[2024-05-18 15:17] LABS: Hematocrit 36.3 % (37-47); Hemoglobin 11.7 g/dL (12.0-15.0); Mean Corp Hgb Conc 32.2 g/dL (32-36); Mean Corpuscular Hgb 27.8 pg (27.0-32.0); Mean Corpuscular Volume 86.2 fL (81-99); Mean Platelet Vol. 11.4 fl (6.2-12.0); Platelet Count 318 K/mm3 (150-450); RBC Distribution Width CV 12.4 % (11.6-14.6); RBC Distribution Width SD 39.1 fl (35.1-43.9); Red Blood Count 4.21 M/mm3 (4.2-5.4)
[2024-05-18 15:46] LABS: Vitamin B12 1069 pg/mL (211-911); Vitamin D,25 Hydroxy 55.7 ng/mL
[2024-05-18 16:04] LABS: ALB/GLOB Ratio 0.9 RATIO (0.9-2.4); AST(SGOT) 18 U/L (15-37); Alanine Aminotransfer ALT/SGPT 18 U/L (13-56); Albumin, Serum 3.7 g/dL (3.2-5.0); Alkaline Phosphatase 74 U/L (45-117); Anion Gap 7 (5-15); BUN 9 mg/dL (7-18); BUN/Creat Ratio 7.6 RATIO (10-20); Calcium,Total 8.9 mg/dL (8.5-10.1); Chloride 106 mmol/L (98-107); Cholesterol 177 mg/dL (200); Creatinine, Serum 1.18 mg/dL (0.55-1.02); EST Glomerular Filtration Rate 54 mL/min (>60); Est Glom Filt Rate - Afr Amer 66 mL/min (>60); Ferritin 6 ng/mL (8-252); Globulin 3.9 g/dL (2.2-4.2); Glucose 109 mg/dL (74-106); High Density Lipoprotein 69 mg/dL; Iron 58 ug/dL (50-170); Potassium 3.7 mmol/L (3.5-5.1); Protein, Total 7.6 g/dL (6.4-8.2); Sodium Level 139 mmol/L (136-145); Triglycerides 81 mg/dL; Very Low Density Lipoprotein 16 mg/dL (5-40)
[2024-05-23 07:07] LABS: Vitamin B1, Thiamine 112.1 nmol/L (66.5-200.0); Zinc, Plasma or Serum 72 ug/dL (44-115)
== END | disposition home or self-care (01) ==
PROVIDERS: PCP Family Medicine; Referring Provider Surgery; Visit Provider Surgery
DX: E61.7 Deficiency of multiple nutrient elements (principal); Z90.3 Acquired absence of stomach [part of]; E66.09 Other obesity due to excess calories; Z68.32 Body mass index [BMI] 32.0-32.9, adult; G47.33 Obstructive sleep apnea (adult) (pediatric); E03.9 Hypothyroidism, unspecified
CPT/HCPCS: 36415; 80053; 80061; 82306; 82607; 82728; 82746; 83540; 83735; 84425; 84630; 85027

== ENCOUNTER → 2024-06-06 | Outpatient (CLI) | payer OTHER, SELFPAY ==
[2024-06-06 16:19] LABS: Free T3 2.1 pg/mL (2.18-3.98); Thyroid Stim Hormone (TSH) 0.17 uIU/mL (0.358-3.74)
== END | disposition home or self-care (01) ==
LOC: MTLAB 11:16
PROVIDERS: PCP Family Medicine; Referring Provider Family Medicine; Visit Provider Family Medicine
DX: E03.9 Hypothyroidism, unspecified (principal)
CPT/HCPCS: 36415; 84439; 84443; 84481

== ENCOUNTER → 2024-08-10 | Outpatient (CLI) | payer OTHER, SELFPAY ==
[2024-08-10 18:16] LABS: Free T3 2.3 pg/mL (2.18-3.98); T4 Free Direct 1.22 ng/dL (0.76-1.46); Thyroid Stim Hormone (TSH) 0.096 uIU/mL (0.358-3.740)
== END | disposition home or self-care (01) ==
LOC: MTLAB 15:14
PROVIDERS: PCP Family Medicine; Referring Provider Family Medicine; Visit Provider Family Medicine
DX: E03.9 Hypothyroidism, unspecified (principal)
CPT/HCPCS: 36415; 84439; 84443; 84481

== ENCOUNTER → 2024-11-28 | Outpatient (CLI) | payer OTHER, SELFPAY ==
[2024-11-28 10:58] LABS: Anion Gap 2 (5-15); BUN 13 mg/dL (7-18); BUN/Creat Ratio 13.1 RATIO (10-20); Chloride 110 mmol/L (98-107); Cholesterol 182 mg/dL (200); Creatinine, Serum 0.99 mg/dL (0.55-1.02); EST Glomerular Filtration Rate 66 mL/min (>60); Est Glom Filt Rate - Afr Amer 80 mL/min (>60); Glucose 84 mg/dL (74-106); High Density Lipoprotein 76 mg/dL; Potassium 3.7 mmol/L (3.5-5.1); Sodium Level 139 mmol/L (136-145); Thyroid Stim Hormone (TSH) 0.129 uIU/mL (0.358-3.740); Triglycerides 58 mg/dL; Very Low Density Lipoprotein 12 mg/dL (5-40)
== END | disposition home or self-care (01) ==
LOC: MTLAB 09:24
PROVIDERS: PCP Family Medicine; Referring Provider Family Medicine; Visit Provider Family Medicine
DX: Z00.00 Encounter for general adult medical examination without abnormal findings (principal); E03.9 Hypothyroidism, unspecified
CPT/HCPCS: 36415; 80048; 80061; 84443

== ENCOUNTER → 2025-01-25 | Outpatient (CLI) | payer OTHER, SELFPAY ==
[2025-01-25 15:10] LABS: Absolute Lymphocyte Count 2.24 X10^3/uL (0.83-4.51); Basophil# 0.04 X10^3/uL; Basophil% 0.9 % (0-1); Eosinophil# 0.08 X10^3/uL; Eosinophils% 1.7 % (0-5); Hematocrit 35.2 % (37-47); Lymphocyte # 2.24 X10^3/ul (0.83-4.51); Lymphocyte % 48.6 % (19-41); Mean Corp Hgb Conc 31.3 g/dL (32-36); Mean Corpuscular Hgb 25.4 pg (27.0-32.0); Mean Corpuscular Volume 81.3 fL (81-99); Mean Platelet Vol. 11.6 fl (6.2-12.0); Monocyte# 0.27 X10^3/uL; Monocyte% 5.9 % (0-10); NRBC Flagged by Analyzer 0 % (0-5); Neutrophil # 1.97 X10^3/uL (2.7-7.7); Neutrophil % 42.7 % (47-70); Platelet Count 322 K/mm3 (150-450); RBC Distribution Width CV 12.9 % (11.6-14.6); RBC Distribution Width SD 38.1 fl (35.1-43.9); Red Blood Count 4.33 M/mm3 (4.2-5.4); White Blood Count 4.6 K/mm3 (4.4-11.0)
[2025-01-25 18:00] LABS: ALB/GLOB Ratio 1.3 RATIO (0.9-2.4); AST(SGOT) 19 U/L (<=31); Alanine Aminotransfer ALT/SGPT 10 U/L (<=34); Albumin, Serum 4.4 g/dL (3.5-5.0); Alkaline Phosphatase 68 U/L (35-104); Anion Gap 11 (5-15); BUN 8 mg/dL (4-19); BUN/Creat Ratio 8.1 RATIO (10-20); Calcium,Total 9.4 mg/dL (7.6-11.0); Carbon Dioxide 24.7 mmol/L (21.0-32.0); Chloride 102 mmol/L (98-108); Cholesterol 186 mg/dL (<=200); Creatinine, Serum 1.02 mg/dL (0.70-1.20); EST Glomerular Filtration Rate 72 (>60); Globulin 3.3 g/dL (2.2-4.2); Glucose 75 mg/dL (70-99); High Density Lipoprotein 73 mg/dL; Low Density Lipoprotein Calc. 101 mg/dL; Potassium 4.1 mmol/L (3.3-5.1); Protein, Total 7.7 g/dL (5.9-8.4); Sodium Level 138 mmol/L (133-145); Total Bilirubin 0.26 mg/dL (0.00-1.30); Triglycerides 63 mg/dL; Very Low Density Lipoprotein 13 mg/dL (5-40); cholesterol:hdl ratio screen 2.55
[2025-01-25 18:05] LABS: Ferritin 16 ng/mL (22-378); Magnesium 2.3 mg/dL (1.5-2.2); Vitamin B12 1004 pg/mL (180-914)
[2025-01-25 19:11] LABS: Iron 42 ug/dL (50-170)
[2025-01-31 04:07] LABS: Folate, RBC (Hct) Test 35.7 % (34.0-46.6); Folates, RBC Test 950 ng/mL (>498); Zinc, WHOLE BLOOD 590 ug/dL (440-860)
== END | disposition home or self-care (01) ==
LOC: MTLAB 13:20
PROVIDERS: PCP Family Medicine
DX: E61.7 Deficiency of multiple nutrient elements (principal); K90.9 Intestinal malabsorption, unspecified; Z13.220 Encounter for screening for lipoid disorders
CPT/HCPCS: 36415; 80053; 80061; 82306; 82607; 82728; 82747; 83540; 83735; 84425; 84630; 85014; 85025

== ENCOUNTER 2025-02-01 11:16 | Day surgery (SDC) | payer OTHER, SELFPAY ==
--- NOTE | 2025-01-30 14:53 | PAT.ANE_ITS ---
Pre-Assessment Diagnosis/Proposed Procedure Planned Operative Procedure(s): CSCOPE HEMORRHOID BANDING Anesthesia History Anesthesia History - rough planer tender: Anesthesia History - rough planer tender Hx Hospitalization No 01/30/25 11:46 Any Problems With Anesthesia No 01/30/25 11:46 Cholinesterase deficiency No 01/30/25 11:46 You/Your Family Experience No 01/30/25 11:46 fever (hyperthermia) with Relationship Recent Exposure to Contagious Disease Does patient have nerve No 01/30/25 11:46 stimulator Patient instructed to have device shut off --Does patient have Pacemaker or ICD? When Was Last Pacemaker Check QUESTION #4 FULL TEXT: You/Your Family Experience fever (hyperthermia) with Anesthesia Last Oral Intake Last Oral intake: Last Oral Intake NPO since Meds taken in AM with sips of water? 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 - rough planer tender: PONV - rough planer tender Female Yes 01/30/25 11:46 HX of Motion Sickness No 01/30/25 11:46 HX of N/V After Surgery No 01/30/25 11:46 Non-Smoker Yes 01/30/25 11:46 Duration of Surgery greater No 01/30/25 11:46 than 60 minutes Number of Risk Factors 2 01/30/25 11:46 PONV Score Moderate Risk 01/30/25 11:46 Height & Weight Height & Weight: Anesthesia: Height & Weight Height 5 ft 2 in 01/04/25 14:04 Respiratory Assessment Respiratory Assessment - rough planer tender: Respiratory Tract Infection Hx - rough planer tender Hx Respiratory Tract Infection Yes: SINUS COLD 01/30/25 11:46 STOP Sleep Apnea STOP Sleep Apnea - rough planer tender: STOP Sleep Apnea - rough planer tender Hx Hypertension No 01/30/25 11:46 Hx Sleep Apnea Yes 01/30/25 11:46 CPAP Yes 01/30/25 11:46 BIPAP No 01/30/25 11:46 Do you snore loudly (louder No 01/30/25 11:46 than talking or can be heard Do you often feel tired/ No 01/30/25 11:46 fatigued/ sleepy during daytime? Has anyone observed you stop No 01/30/25 11:46 breathing during sleep? STOP Results Positive 01/30/25 11:46 QUESTION #5 FULL TEXT : Do you snore loudly (louder than talking or can be heard through closed doors)? 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 Specify any problems Hx of Preganancy in last 3 No 01/30/25 11:46 Months Nurse Filling Out Transfusion DSCHRIBER 01/30/25 11:46 & Questions: Date: 01/30/25 01/30/25 11:46 Time: 11:47 01/30/25 11:46 Patient unable to answer at this time (ie. confused, unrespo /Reproduction History /Reproductive History - rough planer tender: /Reproductive Hx- rough planer tender Hx Now No 01/30/25 11:46 Gestational Age (in weeks): EDC: Hx Hx Para Hx Section SAB No 01/30/25 11:46 COUNTS INCLUDE 234 BEDS AT THE [facility] Medical History (Updated 01/30/25 @ 11:52 by Juliana Contreras) Depression Anxiety Alcohol use Anemia Back pain Migraine headache Non-smoker CPAP (continuous positive airway pressure) dependence Shortness of breath on exertion History of echocardiogram Seizures Cardiology follow-up encounter Polycystic ovary Hormone deficiency Rectal discomfort Constipation Hepatic steatosis Obesity, morbid, BMI 40.0-49.9 Hypothyroidism Normal spontaneous vaginal delivery Home Medications ?Medication ?Instructions ?Recorded ?Last Taken ?Type bupropion HCl 300 mg 24 hr tablet, 300 mg PO DAILY Unknown History extended release lurasidone 80 mg tablet (Latuda) 20 mg PO DAILY Unknown History clonazepam 0.5 mg tablet 0.5 mg PO BID 12/07/24 Unkno wn History levothyroxine 112 mcg tablet 100 mcg PO DAILY 12/07/24 Unknown History Diltiazem 2% / Lidocaine 5% #30 grams 01/04/25 Unknown Rx ointment (compound) ondansetron 4 mg disintegrating 4 mg PO Q4H PRN nausea and vomiting 01/30/25 Unknown History tablet Allergy/AdvReac Type Severity Reaction Status Date / Time bee venom protein (honey bee) AdvReac Severe Anaphylaxis Verified 01/30/25 11:45 Family History Father Hypertension Obesity Mother Hypertension Obesity Grandfather Colon cancer Uncle Colon cancer Surgical History (Updated 01/30/25 @ 11:52 by Juliana Contreras) H/O hernia repair H/O gastric sleeve Social History (Updated 01/25/25 @ 14:02 by Antonia Goldberg) household members: spouse Smoking Status: Never smoker how long ago did patient quit smoking: quit 20 years ago alcohol intake: current substance use type: does not use what type of physical activity do you participate in: walking frequency: 1-2 times per week additional social history: pt denies vaping, denies edibles, denies marijuana uses aspirin and ibuprofen as needed Audit: Pertinent Findings Pertinent Findings EKG Perinent findings: July 30, 2022. Sinus rhythm within normal limits. Echo (EF%) pertinent findings: August 13, 2022. Ejection fraction 65%. No aort ic stenosis is noted. Consult pertinent findings: July 30, 2022. Dr. Price. 1. Encounter for preop cardiovascular clearance-she has been fairly stable. Will plan for echo to further assess. (See above) Recommendation Anesthesia Recommendation Anesthesia recommendation: OPTIMIZED for anesthesia
[2025-02-01] VITALS (7 sets, daily range): BP systolic 91–119; BP diastolic 49–83; PULSE 53–62; RESP 12–16; TEMP 36.3–36.7; O2SAT 97–100; BMI 29.4
[2025-02-01 11:38] LABS: Internal QC Validated? YES +Cl - CLEAR BKGD; Pregnancy, Urine Negative Negative
--- NOTE | 2025-02-01 11:47 | PCM.PRE.AN2 ---
ASA Classification* ASA Classification ASA Classification: 2 Assessment & Plan Anesthesia* Anesthesia Assessment Anesthesia Assessment: Discussed sedation and/or anesthesia options, risks, benefits, and alternatives with patient/parents/legal guardian/POA. Questions invited. The patient/parents/legal guardian/POA seems to understand and agrees to proceed with anesthesia plan. Reviewed the physical assessment, medical history, allergy history and patient home medications list prior to surgery/procedure/anesthetic and documented any changes. Performed airway and anesthesia risk assessments. Anesthesia Type Anesthesia Type: MAC Anesthesia Focused Assessment* Airway Assessment Mouth opens: >3 cm Mallampati Score: II Focused Labs Anesthesia Preop lab: CBC WBC 4.6 K/mm3 (4.4-11.0) 01/25/25 13:01/25/25 RBC 4.33 M/mm3 (4.2-5.4) 01/25/25 13:01/25/25 Hgb 11.0 g/dL (12.0-15.0) L 01/25/25 13:01/25/25 Hct 35.2 % (37-47) L 01/25/25 13:01/25/25 Plt Count 322 K/mm3 (150-450) 01/25/25 13:01/25/25 CHEMISTRY Potassium 4.1 mmol/L (3.3-5.1) 01/25/25 13:26 01/25/25 Sodium 138 mmol/L (133-145) 01/25/25 13:01/25/25 Magnesium 2.3 mg/dL (1.5-2.2) H 01/25/25 13:01/25/25 BUN 8 mg/dL (4-19) 01/25/25 13:01/25/25 Creatinine 1.02 mg/dL (0.70-1.20) 01/25/25 13:01/25/25 Glucose 75 mg/dL (70-99) 01/25/25 13:01/25/25 POC Glucose 85 mg/dL (70-110) 07/18/16 06:52 07/18/16 TSH 0.129 uIU/mL (0.358-3.740) L 11/28/24 09:11/28/24 COAG Urine Test Negative Negative 02/01/25 11:25 02/01/25 Pre-Assessment Diagnosis/Proposed Procedure Planned Operative Procedure(s): CSCOPE HEMORRHOID BANDING Anesthesia History Anesthesia History - skin pass operator: Anesthesia History - skin pass operator Hx Hospitalization No 01/30/25 11:46 Any Problems With Anesthesia No 01/30/25 11:46 Cholinesterase deficiency No 01/30/25 11:46 You/Your Family Experience No 01/30/25 11:46 fever (hyperthermia) with Relationship Recent Exposure to Contagious Disease Does patient have nerve No 01/30/25 11:46 stimulator Patient instructed to have device shut off --Does patient have Pacemaker or ICD? When Was Last Pacemaker Check QUESTION #4 FULL TEXT: You/Your Family Experience fever (hyperthermia) with Anesthesia Last Oral Intake Last Oral intake: Last Oral Intake NPO since Meds taken in AM with sips of water? 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 - skin pass operator: PONV - skin pass operator Female Yes 01/30/25 11:46 HX of Motion Sickness No 01/30/25 11:46 HX of N/V After Surgery No 01/30/25 11:46 Non-Smoker Yes 01/30/25 11:46 Duration of Surgery greater No 01/30/25 11:46 than 60 minutes Number of Risk Factors 2 01/30/25 11:46 PONV Score Moderate Risk 01/30/25 11:46 Height & Weight Height & Weight: Anesthesia: Height & Weight Height 5 ft 2 in 01/30/25 06:30 Respiratory Assessment Respiratory Assessment - skin pass operator: Respiratory Tract Infection Hx - skin pass operator Hx Respiratory Tract Infection Yes: SINUS COLD 01/30/25 11:46 STOP Sleep Apnea STOP Sleep Apnea - skin pass operator: STOP Sleep Apnea - skin pass operator Hx Hypertension No 01/30/25 11:46 Hx Sleep Apnea Yes 01/30/25 11:46 CPAP Yes 01/30/25 11:46 BIPAP No 01/30/25 11:46 Do you snore loudly (louder No 01/30/25 11:46 than talking or can be heard Do you often feel tired/ No 01/30/25 11:46 fatigued/ sleepy during daytime? Has anyone observed you stop No 01/30/25 11:46 breathing during sleep? STOP Results Positive 01/30/25 11:46 QUESTION #5 FULL TEXT : Do you snore loudly (louder than talking or can be heard through closed doors)? 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 Specify any problems Hx of Preganancy in last 3 No 01/30/25 11:46 Months Nurse Filling Out Transfusion DSCHRIBER 01/30/25 11:46 & Questions: Date: 01/30/25 01/30/25 11:46 Time: 11:47 01/30/25 11:46 Patient unable to answer at this time (ie. confused, unrespo /Reproduction History /Reproductive History - skin pass operator: /Reproductive Hx- skin pass operator Hx Now No 01/30/25 11:46 Gestational Age (in weeks): EDC: Hx Hx Para Hx Section SAB No 01/30/25 11:46 PFSH Medical History Depression Anxiety Alcohol use Anemia Back pain Migraine headache Non-smoker CPAP (continuous positive airway pressure) dependence Shortness of breath on exertion History of echocardiogram Seizures Cardiology follow-up encounter Polycystic ovary Hormone deficiency Rectal discomfort Constipation Hepatic steatosis Obesity, morbid, BMI 40.0-49.9 Hypothyroidism Normal spontaneous vaginal delivery Home Medications ?Medication ?Instructions ?Recorded ?Last Taken ?Type bupropion HCl 300 mg 24 hr tablet, 300 mg PO DAILY 07/30/22 Unknown History extended release lurasidone 80 mg tablet (Latuda) 20 mg PO DAILY 12/06/24 Unknown History clonazepam 0.5 mg tablet 0.5 mg PO BID 12/07/24 Unknown History levothyroxine 112 mcg tablet 100 mcg PO DAILY 12/07/24 02/01/25 04:00 History Diltiazem 2% / Lidocaine 5% #30 grams 01/04/25 Unknown Rx ointment (compound) ondansetron 4 mg disintegrating 4 mg PO Q4H PRN nausea and vomiting 01/30/25 Unknown History tablet Allergy/AdvReac Type Severity Reaction Status Date / Time bee venom protein (honey bee) AdvReac Severe Anaphylaxis Verified 02/01/25 11:39 Family History Father Hypertension Obesity Mother Hypertension Obesity Grandfather Colon cancer Uncle Colon cancer Surgical History H/O hernia repair H/O gastric sleeve Social History household members: spouse Smoking Status: Former smoker how long ago did patient quit smoking: quit 20 years ago alcohol intake: current substance use type: does not use what type of physical activity do you participate in: walking frequency: 1-2 times per week additional social history: pt denies vaping, denies edibles, denies marijuana uses aspirin and ibuprofen as needed Review of Systems (Anesthesia) ROS Narrative System reviewed and no additional complaints, except as documented.
--- NOTE | 2025-02-01 12:54 | PCM.HP.STD ---
HPI - General General Date of Admission: 02/01/25 Date of Service: 02/01/25 Chief Complaint: lower GI bleeding HPI Narrative FIORELLA ADAME is a 39 F who presents Chief Complaint: rectal pain Details: FIORELLA ADAME is a 39 F who presents to the office today for OV 12/07/2024 39y/o female presents for consultation with complaints of rectal pressure/tenesmus immediately post BM. She denies any change in bowel habits, weight loss, pain or bleeding. DRT revealed internal hemorrhoid at 3 o'clock and 6 o'clock with mild discomfort at 3 o'clock. I have prescribed anusol supp. x7 days. She will follow-up in one month. Patient Instructions: Anusol supp x7 days at HS F/U one month, if symptoms are persisting will schedule colonoscopy with banding - 1 BM daily, denies any straining - denies any bleeding - denies any abdominal pain - denies any family h/o colon CA - stools are soft formed - no improvement with Anusol suppositories [facility] Medical History Depression Anxiety Alcohol use Anemia Back pain Migraine headache Non-smoker CPAP (continuous positive airway pressure) dependence Shortness of breath on exertion History of echocardiogram Seizures Cardiology follow-up encounter Polycystic ovary Hormone deficiency Rectal discomfort Constipation Hepatic steatosis Obesity, morbid, BMI 40.0-49.9 Hypothyroidism Normal spontaneous vaginal delivery Home Medications ?Medication ?Instructions ?Recorded ?Last Taken ?Type bupropion HCl 300 mg 24 hr tablet, 300 mg PO DAILY 07/30/22 Unknown History extended release lurasidone 80 mg tablet (Latuda) 20 mg PO DAILY 12/06/24 Unknown History clonazepam 0.5 mg tablet 0.5 mg PO BID 12/07/24 Unknown History levothyroxine 112 mcg tablet 100 mcg PO DAILY 12/07/24 02/01/25 04:00 History Diltiazem 2% / Lidocaine 5% #30 grams 01/04/25 Unknown Rx ointment (compound) ondansetron 4 mg disintegrating 4 mg PO Q4H PRN nausea and vomiting 01/30/25 Unknown History tablet Allergy/AdvReac Type Severity Reaction Status Date / Time bee venom protein (honey bee) AdvReac Severe Anaphylaxis Verified 02/01/25 11:39 Family History Father Hypertension Obesity Mother Hypertension Obesity Grandfather Colon cancer Uncle Colon cancer Surgical History H/O hernia repair H/O gastric sleeve Social History household members: spouse Smoking Status: Former smoker how long ago did patient quit smoking: quit 20 years ago alcohol intake: current substance use type: does not use what type of physical activity do you participate in: walking frequency: 1-2 times per week additional social history: pt denies vaping, denies edibles, denies marijuana uses aspirin and ibuprofen as needed ROS Constitutional Constitutional: Denies fatigue, fever(s), poor appetite, weight gain or weight loss Gastrointestinal Gastrointestinal: Denies belching, bloating, change in bowel habits, change in stool character, chewing difficulty, coffee ground emesis, constipation, cramping, diarrhea, dyspepsia, dysphagia, early satiety, excessive flatus, fecal incontinence, heartburn, hematemesis, hematochezia, hemorrhoids, loose stools, melena, nausea, odynophagia, rectal bleeding, tenesmus, vomiting or weight changes Vital Signs Vital Signs Vital Signs: 02/01/25 11:40 02/01/25 11:40 Temperature 98.1 F Temperature Source Temporal Pulse Rate 56 L Respiratory Rate 16 Respiratory Pattern Normal Blood Pressure 119/83 H Blood Pressure Mean 95 Blood Pressure Source Monitor Blood Pressure Position Semi-Fowlers Blood Pressure Location Right Arm Pulse Ox 100 Oxygen Delivery Method Room Air Weight Weight: 160 lb 14.999 oz Body Mass Index (BMI) 29.4 Physical Exam Const alert, oriented x3, no apparent distress and healthy appearing General Appearance: cooperative GI normal to inspection, nondistended, normoactive bowel sounds, soft to palpation, non-tender and non-distended Percussion: normal to percussion Rectal Exam: deferred Results Lab / Micro Data Labs: Laboratory Results - last 24 hr 02/01/25 11:25: Urine Test Negative Assessment & Plan Assessment/Plan (1) Tenesmus (rectal): (2) Rectal bleeding: PLAN: Assessment and Plan Assessment and Plan (1) Tenesmus (rectal): Status: Acute (2) Hemorrhoid: Status: Acute Medications: New Diltiazem 2% / Lidocaine 5% ointment (compound) insert a pea sized amount into the rectum BID PRN pain 30 grams 0RF Plan 39y/o female presents for follow-up of rectal pain and hemorrhoids. She denies any improvement with Anusol suppositories. She denies any bleeding, change in bowel habits or bleeding. She will schedule colonoscopy with banding and trail diltiazem/lidocaine compound in the interim. Plan Details
--- NOTE | 2025-02-01 13:30 | OP.COLON_ITS ---
Patient Name: Lana Oliva Procedure Date: 02/01/2025 12:59 PM Date of : 1985 Age: 39 Procedure: Colonoscopy Indications: Lower abdominal pain, Change in bowel habits, Obstipation, Rectal pain Providers: DO Yuliana Jennings MD: Patricio Moeller MD Medicines: Monitored Anesthesia Care Patient Profile: This is a 39 year old female. Refer to note in patient chart for documentation of history and physical. Last Colonoscopy: none. The patient's first colonoscopy is today. Complications: No immediate complications. Procedure: Pre-Anesthesia Assessment: - Prior to the procedure, a History and Physical was performed, and patient medications and allergies were reviewed. The patient is competent. The risks and benefits of the procedure and the sedation options and risks were discussed with the patient. All questions were answered and informed consent was obtained. Patient identification and proposed procedure were verified by the physician in the pre-procedure area. Mental Status Examination: alert and oriented. Airway Examination: normal oropharyngeal airway and neck mobility. Respiratory Examination: clear to auscultation. CV Examination: normal. ASA Grade Assessment: II - A patient with mild systemic disease. After reviewing the risks and benefits, the patient was deemed in satisfactory condition to undergo the procedure. The anesthesia plan was to use monitored anesthesia care (MAC). Immediately prior to administration of medications, the patient was re-assessed for adequacy to receive sedatives. The heart rate, respiratory rate, oxygen saturations, blood pressure, adequacy of pulmonary ventilation, and response to care were monitored throughout the procedure. The physical status of the patient was re-assessed after the procedure. After I obtained informed consent, the scope was passed under direct vision. Throughout the procedure, the patient's blood pressure, pulse, and oxygen saturations were monitored continuously. The Colonoscope was introduced through the anus and advanced to the terminal ileum. The colonoscopy was performed without difficulty. The patient tolerated the procedure well. The quality of the bowel preparation was good. The terminal ileum, ileocecal valve, appendiceal orifice, and rectum were photographed. Scope In: 1:13:02 PM Scope Withdrawal Time 0 hours 7 minutes 42 seconds Scope Out: 1:24:19 PM Total Procedure Duration Time 0 hours 11 minutes 17 seconds Findings: The perianal and digital rectal examinations were normal. Non-bleeding internal hemorrhoids were found during retroflexion. The hemorrhoids were Grade II (internal hemorrhoids that prolapse but reduce spontaneously). The endoscope was withdrawn. A hemorrhoid was isolated with anoscopy. The ShortShot ligator was positioned over the hemorrhoid at the left lateral position. Suction was applied and one rubber band was placed over the hemorrhoid. This was checked to make certain that the muscularis was free of the band. There were no complications. The colon (entire examined portion) appeared normal. Impression: - Non-bleeding internal hemorrhoids. Banded. - The entire examined colon is normal. - No specimens collected. Recommendation: - Discharge patient to home. - Resume previous diet. - Continue present medications. - Repeat colonoscopy in 10 years for screening purposes. Procedure Code(s): --- Professional --- 45025, Hemorrhoidectomy, internal, by rubber band ligation(s) 22759, Colonoscopy, flexible; diagnostic, including collection of specimen(s) by brushing or washing, when performed (separate procedure) CPT copyright 2021 [employer]. All rights reserved. The codes documented in this report are preliminary and upon medical review coordinator review may be revised to meet current compliance requirements. Shon Rivera DO 02/01/2025 1:30:27 PM This report has been signed electronically. Number of Addenda: 0 Note Initiated On: 02/01/2025 12:59 PM
--- NOTE | 2025-02-01 13:31 | OP.CCLET_ITS ---
02/01/2025 Patricio Moeller MD [address] [id number] Re : Colonoscopy procedure for Lana Oliva Dear Dr. Moeller This procedure was performed on Saturday, February 01, 2025. My impressions and recommendations are as follows: Impressions : - Non-bleeding internal hemorrhoids. Banded. - The entire examined colon is normal. - No specimens collected. Recommendations : - Discharge patient to home. - Resume previous diet. - Continue present medications. - Repeat colonoscopy in 10 years for screening purposes. My findings are described in the full procedure note, which is enclosed. If I can be of further assistance, please feel free to contact me at . Sincerely, Shon Rivera, 02/01/2025 1:30:27 PM This report has been signed electronically.
--- NOTE | 2025-02-01 13:40 | PCM.POST.ANE ---
Anesthesia: Postop Eval I Current Vital Signs Temperature: 97.9 F Pulse Rate: 60 Blood Pressure: 91/49 Respiratory Rate: 12 Pulse Ox: 98 Oxygen Delivery Method: Room Air Assessment Airway patent: Yes Spontaneous unlabored respirations: Yes Mental status: Asleep nausea: No Vomiting: No Anesthesia Complication: No Fluid Hydration Crystalloid volume administer (ml): 40 Total IV fluid infused: 40 Progress Note Anesthesia document: Postop Eval 1 completed: Yes
--- NOTE | 2025-02-01 14:29 | PCM.POSTANE2 ---
Anesthesia Postop Eval I Sum Postop Eval Completion status Anesthesia document: Postop Eval 1 completed: Yes Anesthesia Postop Eval I Summary Anesthesia Postop Eval I Summary: Anesthesia Postop Eval I: Assessment Summary Airway patent Yes 02/01/25 13:41 [email or web address] Spontaneous unlabored Yes 02/01/25 13:41 [email or web address] respirations Mental status Asleep 02/01/25 13:41 [email or web address] nausea No 02/01/25 13:41 [email or web address] Vomiting No 02/01/25 13:41 [email or web address] Anesthesia Postop Eval I: Fluid Summary Crystalloid volume administer 40 02/01/25 13:41 [email or web address] (ml) Colloids volume administered ( ml) Blood Product volume administered (ml) Total IV fluid infused 40 02/01/25 13:41 [email or web address] Anesthesia Postop Eval I: Summary Notes Anesthesia Complication No 02/01/25 13:41 [email or web address] Anesthesia Complication Comment: Post-operative progress note Anesthesia: Postop Eval II Evaluation Mental status: Awake Pain Level: 0 nausea: No Vomiting: No
== END 2025-02-01 14:15 | disposition home or self-care (01) ==
LOC: EN 11:19 → AC 11:19
PROVIDERS: Anesthesiology; PCP Family Medicine; Referring Provider Family Medicine; Visit Provider Internal Medicine Gastroenterology
PROC: 0DJD8ZZ Inspection of Lower Intestinal Tract, Via Natural or Artificial Opening Endoscopic (ICD-10-PCS; CPT 45378; principal; 2025-02-01 12:25)
DX: K64.1 Second degree hemorrhoids (principal); Z87.891 Personal history of nicotine dependence; R19.8 Other specified symptoms and signs involving the digestive system and abdomen; Z79.890 Hormone replacement therapy; E03.9 Hypothyroidism, unspecified
CPT/HCPCS: 45398; 81025; A4216; J2405

== ENCOUNTER → 2025-02-15 | Outpatient (CLI) | payer OTHER, SELFPAY ==
[2025-02-15 17:56] LABS: Absolute Lymphocyte Count 1.77 X10^3/uL (0.83-4.51); Absolute Neutrophil Count 4.9 X10^3/uL (2.0-7.7); Basophil# 0.06 X10^3/uL; Basophil% 0.8 % (0-1); Eosinophil# 0.17 X10^3/uL; Eosinophils% 2.3 % (0-5); Hematocrit 30.9 % (37-47); Hemoglobin 9.6 g/dL (12.0-15.0); Lymphocyte # 1.77 X10^3/ul (0.83-4.51); Lymphocyte % 23.6 % (19-41); Mean Corp Hgb Conc 31.1 g/dL (32-36); Mean Corpuscular Hgb 25.4 pg (27.0-32.0); Mean Corpuscular Volume 81.7 fL (81-99); Monocyte# 0.54 X10^3/uL; Monocyte% 7.2 % (0-10); NRBC Flagged by Analyzer 0 % (0-5); Neutrophil # 4.94 X10^3/uL (2.7-7.7); Neutrophil % 65.7 % (47-70); Platelet Count 303 K/mm3 (150-450); RBC Distribution Width CV 13.6 % (11.6-14.6); Red Blood Count 3.78 M/mm3 (4.2-5.4); White Blood Count 7.5 K/mm3 (4.4-11.0)
[2025-02-15 18:23] LABS: ALB/GLOB Ratio 1.4 RATIO (0.9-2.4); AST(SGOT) 18 U/L (<=31); Alanine Aminotransfer ALT/SGPT 10 U/L (<=34); Albumin, Serum 3.9 g/dL (3.5-5.0); Alkaline Phosphatase 60 U/L (35-104); Anion Gap 8 (5-15); BUN 11 mg/dL (4-19); BUN/Creat Ratio 10.5 RATIO (10-20); Calcium,Total 8.9 mg/dL (7.6-11.0); Carbon Dioxide 24.2 mmol/L (21.0-32.0); Chloride 107 mmol/L (98-108); Creatinine, Serum 1.04 mg/dL (0.70-1.20); EST Glomerular Filtration Rate 70 (>60); Free T3 2.3 pg/mL (2.18-3.98); Globulin 2.8 g/dL (2.2-4.2); Glucose 80 mg/dL (70-99); Potassium 4.1 mmol/L (3.3-5.1); Protein, Total 6.7 g/dL (5.9-8.4); Sodium Level 139 mmol/L (133-145); Thyroid Stim Hormone (TSH) 0.542 uIU/mL (0.300-4.200); Total Bilirubin < 0.15 mg/dL (0.00-1.30)
== END | disposition home or self-care (01) ==
LOC: MFPLAB 14:49
PROVIDERS: PCP Family Medicine; Referring Provider Family Medicine; Visit Provider Family Medicine
DX: Z01.818 Encounter for other preprocedural examination (principal); E03.9 Hypothyroidism, unspecified
CPT/HCPCS: 36415; 80053; 84439; 84443; 84481; 85025

== ENCOUNTER → 2025-02-28 | Outpatient (CLI) | payer OTHER, SELFPAY ==
[2025-02-28 10:09] LABS: Absolute Lymphocyte Count 1.25 X10^3/uL (0.83-4.51); Absolute Neutrophil Count 1.9 X10^3/uL (2.0-7.7); Basophil# 0.05 X10^3/uL; Basophil% 1.3 % (0-1); Eosinophil# 0.15 X10^3/uL; Hematocrit 33.8 % (37-47); Hemoglobin 10.7 g/dL (12.0-15.0); Lymphocyte # 1.25 X10^3/ul (0.83-4.51); Lymphocyte % 33.3 % (19-41); Mean Corp Hgb Conc 31.7 g/dL (32-36); Mean Corpuscular Hgb 26.2 pg (27.0-32.0); Mean Corpuscular Volume 82.8 fL (81-99); Mean Platelet Vol. 11.7 fl (6.2-12.0); Monocyte# 0.42 X10^3/uL; Monocyte% 11.2 % (0-10); NRBC Flagged by Analyzer 0 % (0-5); Neutrophil # 1.86 X10^3/uL (2.7-7.7); Neutrophil % 49.7 % (47-70); Platelet Count 280 K/mm3 (150-450); RBC Distribution Width SD 43.8 fl (35.1-43.9); Red Blood Count 4.08 M/mm3 (4.2-5.4); White Blood Count 3.8 K/mm3 (4.4-11.0)
[2025-02-28 18:46] LABS: Ferritin 28 ng/mL (22-378); Iron 28 ug/dL (50-170); Iron Binding Capacity,Total 362 ug/dL (250-450); Iron Binding Capacity,Unsat 334 ug/dL (228-428)
== END | disposition home or self-care (01) ==
LOC: MFPLAB 08:01
PROVIDERS: PCP Family Medicine; Referring Provider Family Medicine; Visit Provider Family Medicine
DX: D64.9 Anemia, unspecified (principal)
CPT/HCPCS: 36415; 82728; 83540; 83550; 85025

== ENCOUNTER → 2025-03-07 | Outpatient (CLI) | payer OTHER, SELFPAY ==
[2025-03-07 10:10] LABS: Absolute Lymphocyte Count 1.68 X10^3/uL (0.83-4.51); Absolute Neutrophil Count 3.7 X10^3/uL (2.0-7.7); Basophil# 0.07 X10^3/uL; Basophil% 1.2 % (0-1); Eosinophil# 0.15 X10^3/uL; Eosinophils% 2.5 % (0-5); Hematocrit 35.5 % (37-47); Hemoglobin 10.9 g/dL (12.0-15.0); Lymphocyte # 1.68 X10^3/ul (0.83-4.51); Lymphocyte % 27.8 % (19-41); Mean Corp Hgb Conc 30.7 g/dL (32-36); Mean Corpuscular Volume 84.7 fL (81-99); Mean Platelet Vol. 11.8 fl (6.2-12.0); Monocyte# 0.46 X10^3/uL; Monocyte% 7.6 % (0-10); NRBC Flagged by Analyzer 0 % (0-5); Neutrophil # 3.67 X10^3/uL (2.7-7.7); Neutrophil % 60.6 % (47-70); Platelet Count 273 K/mm3 (150-450); RBC Distribution Width CV 15.7 % (11.6-14.6); RBC Distribution Width SD 48.1 fl (35.1-43.9); Red Blood Count 4.19 M/mm3 (4.2-5.4); White Blood Count 6.1 K/mm3 (4.4-11.0)
== END | disposition home or self-care (01) ==
LOC: MTLAB 07:30
PROVIDERS: PCP Family Medicine; Referring Provider Family Medicine; Visit Provider Family Medicine
DX: D64.9 Anemia, unspecified (principal)
CPT/HCPCS: 36415; 85025

== ENCOUNTER 2025-03-18 12:26 | Emergency (ER) | payer OTHER, SELFPAY ==
[2025-03-18 12:27] VITALS: BP 143/97; PULSE 66; RESP 16; TEMP 36.7; O2SAT 100; BMI 30.7
--- NOTE | 2025-03-18 12:49 | EX.ED.DYSGE1 ---
HPI <ZULMA Garvey - Last Filed: 03/18/25 15:25> History of Present Illness Chief Complaint: Dizziness Narrative Narrative: 39-year-old female with PMH of PCOS, anemia, hypothyroidism states she woke up around 6:30 AM and has felt lightheaded, shaky, and both hands feel clammy. She states she had more to drink than usual last night. She had 4 shots of tequila and 1 cocktail. She felt fine at that time and had no vomiting and has been keeping down Gatorade and water and food this morning but her lightheadedness persisted at work prompting her evaluation. She has no chest pain, shortness of breath, syncope, abdominal pain, nausea or vomiting, diarrhea, or urinary symptoms. She is on day 3 of her menses and states it is always heavy. She was recently diagnosed with iron deficiency anemia and is scheduled to start iron infusions with Dr. Salazar later this month. PFSH <ZULMA Garvey - Last Filed: 03/18/25 15:25> [facility] Medical History GERD (gastroesophageal reflux disease) Carpal tunnel syndrome Insomnia KARINE (obstructive sleep apnea) Former smoker Depression Anxiety Alcohol use Anemia Back pain Migraine headache CPAP (continuous positive airway pressure) dependence Shortness of breath on exertion History of echocardiogram Seizures Cardiology follow-up encounter Polycystic ovary Hormone deficiency Rectal discomfort Constipation Hepatic steatosis Obesity, morbid, BMI 40.0-49.9 Hypothyroidism Normal spontaneous vaginal delivery Home Medications ?Medication ?Instructions ?Recorded ?Last Taken ?Type bupropion HCl 300 mg 24 hr tablet, 300 mg PO QHS 07/30/22 Unknown History extended release lurasidone 80 mg tablet (Latuda) 20 mg PO QHS 12/06/24 Unknown History clonazepam 0.5 mg tablet 0.5 mg PO BID 12/07/24 Unknown History cholecalciferol (vitamin D3) 50 4,000 unit PO DAILY 02/17/25 Unknown History mcg (2,000 unit) capsule ferrous sulfate 325 mg (65 mg 325 mg PO QDAY 02/17/25 Unknown History iron) tablet (FeroSul) levothyroxine 100 mcg tablet 100 mcg PO DAILY 02/17/25 Unknown History magnesium oxide 500 mg capsule 500 mg PO DAILY 02/17/25 Unknown History multivitamin 1 tab PO DAILY 02/17/25 Unknown History epinephrine 0.3 mg/0.3 mL 0.3 mg IM ONCE 03/09/25 Unknown History injection, auto-injector (EpiPen) Allergy/AdvReac Type Severity Reaction Status Date / Time bee venom protein (honey bee) AdvReac Severe Anaphylaxis Verified 03/18/25 12:27 Family History Father Hypertension Obesity Mother Hypertension Obesity Grandfather Colon cancer Uncle Colon cancer Surgical History History of liver biopsy Hx of gastric bypass History of colonoscopy H/O hernia repair H/O gastric sleeve Social History household members: spouse Smoking Status: Former smoker how long ago did patient quit smoking: quit 20 years ago alcohol intake: current alcohol intake frequency: holidays/special occasions only substance use type: does not use what type of physical activity do you participate in: walking frequency: 1-2 times per week additional social history: pt denies vaping, denies edibles, denies marijuana uses aspirin and ibuprofen as needed ROS <ZULMA Garvey - Last Filed: 03/18/25 15:25> ROS ED ROS Narrative Constitutional: Negative for fever, chills, malaise. CVS: Negative for palpitations, chest pain, syncope. Respiratory: Negative for shortness of breath, cough. GI: Negative for abdominal pain, nausea, vomiting, diarrhea. EXAM <ZULMA Garvey - Last Filed: 03/18/25 15:25> Physical Exam Narrative Exam Narrative: CONST: Patient sitting in no acute distress. EYES: Normal inspection. ENT: Normal inspection, moist mucous membranes. NECK: Normal inspection. RESP: No respiratory distress, CTAB. CVS: Regular rate and rhythm, no murmur, no gallop. ABD: Soft and nontender, no guarding or rebound, nondistended. SKIN: Color normal, no rash, warm, dry, intact. EXTREMITIES: Normal appearance, no pedal edema. NEURO: Alert and answering questions appropriately. PSYCH: Normal affect. Const Vital Signs: 03/18/25 12:27 03/18/25 13:27 03/18/25 13:36 Temperature 98.1 F 98.1 F Temperature Source Oral Pulse Rate 66 66 Pulse Rate [Lying] 80 Pulse Rate [Sitting (for 1 minute prior to obtaining)] 78 Pulse Rate [Standing (for 1 minute prior to obtaining)] 87 Respiratory Rate 16 16 Blood Pressure 143/97 H 136/82 H Blood Pressure [Lying] 139/79 H Blood Pressure [Sitting (for 1 minute prior to obtaining)] 142/89 H Blood Pressure [Standing (for 1 minute prior to obtaining)] 138/78 H Blood Pressure Mean 112 100 Blood Pressure Mean [Lying] 99 Blood Pressure Mean [Sitting (for 1 minute prior to obtaining)] 106 Blood Pressure Mean [Standing (for 1 minute prior to obtaining)] 98 Pulse Ox 100 100 Oxygen Delivery Method Room Air 03/18/25 15:03 Temperature Temperature Source Pulse Rate 72 Pulse Rate [Lying] Pulse Rate [Sitting (for 1 minute prior to obtaining)] Pulse Rate [Standing (for 1 minute prior to obtaining)] Respiratory Rate 14 Blood Pressure 135/85 H Blood Pressure [Lying] Blood Pressure [Sitting (for 1 minute prior to obtaining)] Blood Pressure [Standing (for 1 minute prior to obtaining)] Blood Pressure Mean 101 Blood Pressure Mean [Lying] Blood Pressure Mean [Sitting (for 1 minute prior to obtaining)] Blood Pressure Mean [Standing (for 1 minute prior to obtaining)] Pulse Ox 98 Oxygen Delivery Method Room Air <Dr. Antwon Liriano MD - Last Filed: 03/18/25 15:39> Physical Exam Const Vital Signs: 03/18/25 12:27 03/18/25 13:27 03/18/25 13:36 Temperature 98.1 F 98.1 F Temperature Source Oral Pulse Rate 66 66 Pulse Rate [Lying] 80 Pulse Rate [Sitting (for 1 minute prior to obtaining)] 78 Pulse Rate [Standing (for 1 minute prior to obtaining)] 87 Respiratory Rate 16 16 Blood Pressure 143/97 H 136/82 H Blood Pressure [Lying] 139/79 H Blood Pressure [Sitting (for 1 minute prior to obtaining)] 142/89 H Blood Pressure [Standing (for 1 minute prior to obtaining)] 138/78 H Blood Pressure Mean 112 100 Blood Pressure Mean [Lying] 99 Blood Pressure Mean [Sitting (for 1 minute prior to obtaining)] 106 Blood Pressure Mean [Standing (for 1 minute prior to obtaining)] 98 Pulse Ox 100 100 Oxygen Delivery Method Room Air 03/18/25 15:03 Temperature Temperature Source Pulse Rate 72 Pulse Rate [Lying] Pulse Rate [Sitting (for 1 minute prior to obtaining)] Pulse Rate [Standing (for 1 minute prior to obtaining)] Respiratory Rate 14 Blood Pressure 135/85 H Blood Pressure [Lying] Blood Pressure [Sitting (for 1 minute prior to obtaining)] Blood Pressure [Standing (for 1 minute prior to obtaining)] Blood Pressure Mean 101 Blood Pressure Mean [Lying] Blood Pressure Mean [Sitting (for 1 minute prior to obtaining)] Blood Pressure Mean [Standing (for 1 minute prior to obtaining)] Pulse Ox 98 Oxygen Delivery Method Room Air MDM <ZULMA Garvey - Last Filed: 03/18/25 15:25> [facility] MDM Narrative Medical decision making narrative: Differential includes but not limited to orthostatic hypotension, dehydration, electrolyte derangement, URMILA 39-year-old female presents with lightheadedness and shakiness that started this morning. No other specific symptoms. She appears well and nontoxic. Vital signs stable. Overall her exam is benign and orthostatic vital signs were also negative. She was given IV fluids while blood work was obtained. CBC shows stable anemia at 11.7 with no other abnormalities. BMP WNL. I suspect her symptoms are from increase alcohol last night and recommended rest and increased hydration. She was discharged in stable condition. Lab Data Attestation: I reviewed the patient's lab results. Labs: Laboratory Results - last 24 hr 03/18/25 12:54 WBC 6.5 RBC 4.42 Hgb 11.7 L Hct 37.0 MCV 83.7 MCH 26.5 L MCHC 31.6 L RDW Std Deviation 47.1 H RDW Coeff of Bay 15.5 H Plt Count 307 MPV 11.1 Immature Gran % (Auto) 0.300 Neut % (Auto) 59.3 Lymph % (Auto) 29.2 Parke % (Auto) 7.8 Eos % (Auto) 2.5 Baso % (Auto) 0.9 Absolute Neuts (auto) 3.9 Absolute Lymphs (auto) 1.90 Nucleated RBC % 0 Sodium 138 Potassium 4.3 Chloride 103 Carbon Dioxide 23.8 Anion Gap 11 BUN 13 Creatinine 1.02 Estim Creat Clear Calc 70.77 Est GFR (MDRD) Non-Af 72 BUN/Creatinine Ratio 12.5 Glucose 75 Calcium 9.2 <Dr. Antwon Liriano MD - Last Filed: 03/18/25 15:39> MDM Lab Data Labs: Laboratory Results - last 24 hr 03/18/25 12:54 WBC 6.5 RBC 4.42 Hgb 11.7 L Hct 37.0 MCV 83.7 MCH 26.5 L MCHC 31.6 L RDW Std Deviation 47.1 H RDW Coeff of Bay 15.5 H Plt Count 307 MPV 11.1 Immature Gran % (Auto) 0.300 Neut % (Auto) 59.3 Lymph % (Auto) 29.2 Parke % (Auto) 7.8 Eos % (Auto) 2.5 Baso % (Auto) 0.9 Absolute Neuts (auto) 3.9 Absolute Lymphs (auto) 1.90 Nucleated RBC % 0 Sodium 138 Potassium 4.3 Chloride 103 Carbon Dioxide 23.8 Anion Gap 11 BUN 13 Creatinine 1.02 Estim Creat Clear Calc 70.77 Est GFR (MDRD) Non-Af 72 BUN/Creatinine Ratio 12.5 Glucose 75 Calcium 9.2 Treatment and Re-Evaluation Comments:: I have personally performed a face to face assessment of the patient and have reviewed the SALUD Note. I performed a substantive portion of the visit including all aspects of the following. My marie findings include: History is orthostatic symptoms and malaise since waking up this morning after relatively heavy drinking last night. No other drugs. She denies any chest pain, shortness of breath, headache, vision changes focal neurologic symptoms. No vertiginous symptoms. She also has a history of PCOS and heavy menstrual cycles she is on day #3 of a heavy cycle and has a history of anemia. Exam is well-appearing in no distress at rest. No tachycardia. Heart regular no murmurs. Lungs clear. Normal neurologic exam. Medical Decison Making agree with above and labs, orthostatics. These were done and benign she feels better after IV fluids. DC home with supportive care. Other additions or changes: [None] Discharge Plan Triage Chief Complaint: Dizziness ED Midlevel Provider: Mai Sandoval ED Provider: Antwon Liriano Dx/Rx/DC Orders Clinical Impression: Lightheadedness Instructions: Dizziness Fainting Causes Prescriptions: No Action bupropion HCl 300 mg tablet extended release 24 hr 300 mg PO QHS lurasidone [Latuda] 80 mg tablet 20 mg PO QHS clonazepam 0.5 mg tablet 0.5 mg PO BID epinephrine [EpiPen] 0.3 mg/0.3 mL auto-injector 0.3 mg IM ONCE Rx Instructions: as a single dose; may repeat once levothyroxine 100 mcg tablet 100 mcg PO DAILY multivitamin Tablet 1 tab PO DAILY cholecalciferol (vitamin D3) 50 mcg (2,000 unit) capsule 4,000 unit PO DAILY magnesium oxide 500 mg capsule 500 mg PO DAILY ferrous sulfate [FeroSul] 325 mg (65 mg iron) tablet 325 mg PO QDAY Primary Care Provider: Patricio Moeller Referrals: Patricio Moeller MD [Primary Care Provider] - Activity Restrictions/Additional Instructions: Other than mild anemia your labs are normal. Rest and drink plenty of fluids. Follow-up with your doctor as needed. Print Language: Luxembourger Disposition Disposition: Home, Self Care Discharge Date/Time: 03/18/25 15:03
[2025-03-18 13:01] LABS: Absolute Neutrophil Count 3.9 X10^3/uL (2.0-7.7); Basophil# 0.06 X10^3/uL; Basophil% 0.9 % (0-1); Eosinophil# 0.16 X10^3/uL; Eosinophils% 2.5 % (0-5); Hemoglobin 11.7 g/dL (12.0-15.0); Lymphocyte % 29.2 % (19-41); Mean Corp Hgb Conc 31.6 g/dL (32-36); Mean Corpuscular Hgb 26.5 pg (27.0-32.0); Mean Corpuscular Volume 83.7 fL (81-99); Mean Platelet Vol. 11.1 fl (6.2-12.0); Monocyte# 0.51 X10^3/uL; Monocyte% 7.8 % (0-10); NRBC Flagged by Analyzer 0 % (0-5); Neutrophil # 3.85 X10^3/uL (2.7-7.7); Neutrophil % 59.3 % (47-70); Platelet Count 307 K/mm3 (150-450); RBC Distribution Width CV 15.5 % (11.6-14.6); RBC Distribution Width SD 47.1 fl (35.1-43.9); Red Blood Count 4.42 M/mm3 (4.2-5.4); White Blood Count 6.5 K/mm3 (4.4-11.0)
[2025-03-18 13:27] VITALS: BP 138/78; BP 139/79; BP 142/89; PULSE 78; PULSE 80; PULSE 87
[2025-03-18] MEDS: 0.9% Normal Saline (1000mL) 1,000 ML 999 ML IV (13:27)
[2025-03-18 13:31] LABS: Anion Gap 11 (5-15); BUN 13 mg/dL (4-19); BUN/Creat Ratio 12.5 RATIO (10-20); Calcium,Total 9.2 mg/dL (7.6-11.0); Carbon Dioxide 23.8 mmol/L (21.0-32.0); Chloride 103 mmol/L (98-108); Creatinine, Serum 1.02 mg/dL (0.70-1.20); EST Glomerular Filtration Rate 72 (>60); Estimated Creatinine Clearance 70.77 ml/min (50-250); Glucose 75 mg/dL (70-99); Potassium 4.3 mmol/L (3.3-5.1); Sodium Level 138 mmol/L (133-145)
[2025-03-18 13:36] VITALS: BP 136/82; PULSE 66; RESP 16; TEMP 36.7; O2SAT 100
[2025-03-18 15:03] VITALS: BP 135/85; PULSE 72; RESP 14; O2SAT 98
== END 2025-03-18 15:03 | disposition home or self-care (01) ==
PROVIDERS: Physician Assistant; Emergency Provider Emergency Medicine; PCP Family Medicine; Visit Provider Emergency Medicine
DX: R42 Dizziness and giddiness (principal); D50.9 Iron deficiency anemia, unspecified; K21.9 Gastro-esophageal reflux disease without esophagitis; F41.9 Anxiety disorder, unspecified; F32.A Depression, unspecified; E28.2 Polycystic ovarian syndrome; E66.9 Obesity, unspecified; E03.9 Hypothyroidism, unspecified; G47.33 Obstructive sleep apnea (adult) (pediatric); Z98.84 Bariatric surgery status; Z79.890 Hormone replacement therapy; Z79.899 Other long term (current) drug therapy; Z87.891 Personal history of nicotine dependence
CPT/HCPCS: 80048; 85025; 96360; 99283; A4216

== ENCOUNTER → 2025-03-20 | Outpatient (CLI) | payer OTHER, SELFPAY | END | disposition home or self-care (01) | LOC: LABSPEC 16:19 | PROVIDERS: PCP Family Medicine; Referring Provider Physician Assistant; Visit Provider Physician Assistant | DX: R30.9 Painful micturition, unspecified (principal) | CPT/HCPCS: 87077; 87086; 87088; 87186 ==

== ENCOUNTER → 2025-05-24 | Outpatient (CLI) | payer OTHER, SELFPAY ==
[2025-05-24 10:50] LABS: Hematocrit 39.2 % (37-47); Hemoglobin 12.9 g/dL (12.0-15.0); Immature Granulocytes Count 0.030 X10^3/uL (0.0-0.0); Immature Reticulocyte Fraction 3.30 % (3.00-15.90); Mean Corp Hgb Conc 32.9 g/dL (32-36); Mean Corpuscular Volume 88.1 fL (81-99); Mean Platelet Vol. 11.6 fl (6.2-12.0); NRBC Flagged by Analyzer 0 % (0-5); Platelet Count 277 K/mm3 (150-450); RBC Distribution Width CV 13.5 % (11.6-14.6); RBC Distribution Width SD 43.7 fl (35.1-43.9); Red Blood Count 4.45 M/mm3 (4.2-5.4); Reticulocyte Count 1.01 % (0.5-1.5); White Blood Count 6.0 K/mm3 (4.4-11.0)
[2025-05-24 11:47] LABS: AST(SGOT) 23 U/L (<=31); Alanine Aminotransfer ALT/SGPT 13 U/L (<=34); Albumin, Serum 4.3 g/dL (3.5-5.0); Alkaline Phosphatase 65 U/L (35-104); Anion Gap 10 (5-15); BUN 9 mg/dL (4-19); BUN/Creat Ratio 9.6 RATIO (10-20); Calcium,Total 9.2 mg/dL (7.6-11.0); Carbon Dioxide 26.3 mmol/L (21.0-32.0); Chloride 103 mmol/L (98-108); Ferritin 100 ng/mL (22-378); Free T3 2.8 pg/mL (2.18-3.98); Globulin 2.5 g/dL (2.2-4.2); Glucose 85 mg/dL (70-99); Iron Binding Capacity,Total 314 ug/dL (250-450); Potassium 4.1 mmol/L (3.3-5.1); Vitamin B12 557 pg/mL (180-914)
[2025-05-24 12:08] LABS: CRP < 3.00 mg/L (0.0-3.0); Iron 108 ug/dL (50-170); Iron Binding Capacity,Unsat 206 ug/dL (228-428); LDH 150 U/L (84-246); Magnesium 1.8 mg/dL (1.5-2.2)
== END | disposition home or self-care (01) ==
LOC: MTLAB 07:34
PROVIDERS: Internal Medicine Medical Oncology; PCP Family Medicine; Referring Provider Family Medicine; Visit Provider Family Medicine
DX: K95.89 Other complications of other bariatric procedure (principal); E03.9 Hypothyroidism, unspecified; D50.8 Other iron deficiency anemias
CPT/HCPCS: 80053; 82607; 82728; 83540; 83550; 83615; 83735; 84100; 84439; 84443; 84481; 85025; 85045; 85652; 86140

== ENCOUNTER 2025-10-12 06:55 | Day surgery (SDC) | payer OTHER, SELFPAY ==
--- NOTE | 2025-09-22 16:55 | HP.PCM_ITS ---
History and Physical Date of Admission: 10/12/25 HPI: The patient is a 39 year old female presenting for pre-operative visit. She is scheduled for Hysteroscopy with endometrial ablation, for menorrhagia with regular cycle and dysmenorrhea on 10/12/25. Procedure discussed along with risks, benefits and complications. Other alternatives discussed for management. Consent form signed? Yes. PAST MEDICAL HISTORY PAST MEDICAL HISTORYDiagnosisDate•Depression •Hypothyroid •Psychiatric disorder PAST SURGICAL HISTORY PAST SURGICAL HISTORYProcedureLateralityDate•ENDOMETRIAL BIOPSY •LAP SLEEVE GASTRECTOMY 12/22/2022 hernia repair at the same time CURRENT MEDICATIONS Current Outpatient MedicationsMedicationSigDispenseRefill•lurasidone (LATUDA) 60 mg tablet •clonazePAM (KLONOPIN) 0.5 mg tabletTake 0.5 mg by mouth two times a day. •magnesium oxide,aspartate,citr (TRIPLE MAGNESIUM COMPLEX) 400 mg magnesium capTake 1 capsule by mouth once daily. •buPROPion XL (WELLBUTRIN XL) 150 mg 24 hr tabletTake 150 mg by mouth every morning. •buPROPion XL (WELLBUTRIN XL) 300 mg 24 hr tabletTake 300 mg by mouth every morning. •Cyanocobalamin (VITAMIN B-12) 500 mcg lozg •levothyroxine (SYNTHROI D) 100 mcg tabletTake 100 mcg by mouth every afternoon. •EPINEPHrine (EPIPEN) 0.3 mg/0.3 mL auto-injector •cholecalciferol, vitamin D3, 4,000 unit tabTake 1 tablet by mouth once daily. •multivitamin tabletTake 1 tablet by mouth once daily. No current facility-administered medications for this visit. ALLERGIES: Bee Sting PERSONAL HISTORY: [SOCIAL HISTORY] [SOCIAL HISTORY] Social History Tobacco Use • Smoking status: Never • Smokeless tobacco: Never Vaping Use • Vaping status: Never Used Substance Use Topics • Alcohol use: Yes Comment: Social • Drug use: Never FAMILY HISTORY: FAMILY HISTORY FAMILY HISTORY ProblemRelationAge of Onset •HypertensionMother •HypertensionFather REVIEW OF SYMPTOMS: GENERAL: denies fevers or chills ENDOCRINOLOGY: has not been on steroids Cardiology : denies palpitations or chest pain Respiratory: denies SOB or cough Hematology: denies history of prolonged bleeding or easy bruising or VTE Allergy: Denies history of personal or family history of allergy to anesthesia PHYSICAL EXAMINATION: VITALS: Blood pressure 124/82, weight 79.8 kg (176 lb), last menstrual period 08/25/2025. GENERAL: The patient is well nourished, well hydrated in no acute distress. , The patient is oriented to time, place, and person. NECK: Supple. No lynphadenopathy, normal thyroid, no thyromegaly. LUNGS: Clear to auscultation bilaterally. no wheezes, rhonchi or rales HEART: Regular rate and rhythm, Normal heart sounds, and No murmurs or gallops 08/03/25: escription of uterine malformations: arcuate Myometrium: heterogeneous, asymmetrically thickened Endometrium: corpuscular fluid noted within the endometrial cavity. Cervix details: cystic lesions identified suggesting superficial Nabothian cysts Uterus length 87 mm Uterus width 63 mm Uterus height 46 mm Uterus Vol 131.8 cm³ Endometrial thickness single layer 1.4 mm Endom. th. single layer 1.5 mm Side: anterior Side: posterior Endometrial thickness, total 2.9 mm Fibroids: No fibroids identified Polyps: Polyps identified Uterine polyp D1 17 mm Uterine polyp D2 2 mm Uterine polyp D3 5 mm Uterine polyp mean 8.0 mm Doppler: vascular flow visualized Uterine polyp findings: posterior, Broad-based polyp Right Ovary Rt ovary: Visualized Rt ovary D1 59 mm Rt ovary D2 34 mm Rt ovary D3 21 mm Rt ovary Vol 21.5 cm³ Rt ovarian cyst(s): Cysts identified Rt ovarian cyst D1 31 mm Rt ovarian cyst D2 24 mm Rt ovarian cyst D3 32 mm Rt ovarian cyst mean 28.9 mm Rt ovarian cyst vol 12.350 cm³ Rt ovarian cyst findings: Multilocular cyst with smooth inner wall/non-vascular septations Left Ovary Lt ovary: Visualized Lt ovary morphology: premenopausal normal follicular Lt ovary D1 30 mm Lt ovary D2 16 mm Lt ovary D3 29 mm Lt ovary Vol 7.3 cm³ Cul de Sac Visualized. no free fluid visualized IMPRESSION: menorrhagia with regular cycle and dysmenorrhea PLAN: The risks/benefits/alternatives and personal involved for the planned hysterosopy with endometrial ablation (Rochelle or HTA depending on cavity assessment in OR) were reviewed with the patient. Her questions were answered to her satisfaction and she desires to proceed. Consent was signed. I reviewed with her postop instructions and expectations. I have reviewed and updated past medical and surgical history, medications and a llergies Assessment & Plan Assessment/Plan (1) Menorrhagia with regular cycle: (2) Dysmenorrhea:
--- NOTE | 2025-10-03 07:21 | PAT.ANESEVAL ---
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 When Was Last Pacemaker Check QUESTION #4 FULL TEXT: You/Your Family Experience fever (hyperthermia) with Anesthesia Last Oral Intake Last Oral intake: Last Oral Intake NPO since Meds taken in AM with sips of water? 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 Female No 10/02/25 11:23 HX of Motion Sickness No 10/02/25 11:23 HX of N/V After Surgery No 10/02/25 11:23 Non-Smoker Yes 10/02/25 11:23 Duration of Surgery greater No 10/02/25 11:23 than 60 minutes Number of Risk Factors 1 10/02/25 11:23 PONV Score Low Risk 10/02/25 11:23 Height & Weight Height & Weight: Anesthesia: Height & Weight Height 5 ft 2 in 05/24/25 15:31 Respiratory Assessment Respiratory Assessment - process control supervisor: Respiratory Tract Infection Hx - process control supervisor Hx Respiratory Tract Infection No 10/02/25 11:23 STOP Sleep Apnea STOP Sleep Apnea - process control supervisor: STOP Sleep Apnea - process control supervisor Hx Hypertension No 10/02/25 11:23 Hx Sleep Apnea Yes 10/02/25 11:23 CPAP Yes 10/02/25 11:23 BIPAP No 10/02/25 11:23 Do you snore loudly (louder than talking or can be heard Do you often feel tired/ fatigued/ sleepy during daytime? Has anyone observed you stop breathing during sleep? STOP Results Positive 10/02/25 11:23 QUESTION #5 FULL TEXT : Do you snore loudly (louder than talking or can be heard through closed doors)? Tobacco Use History Tobacco Use History - process control supervisor: Tobacco Use History - process control supervisor Tobacco Use Smoking Status Former smoker 10/02/25 11:23 Hx Tobacco Use No 10/02/25 11:23 Years Smoking Packs Smoked per Day Smoking Cessation Date was Yes - quit smoking within 15 10/02/25 11:23 within the last 15 years years Hx Smoking Cessation Date Hx Smoking Cessation Counseling Hematologic Medial History Hematologic Hx - process control supervisor: Hematologic Medical Hx - communication spec Hx of Blood Transfusion No 10/02/25 11:23 Hx of Transfusion in last 3 No 10/02/25 11:23 Months Date of Last Transfusion (if within last 3 months) Ever experience any problems No 10/02/25 11:23 with transfusion(s)? Specify any problems Hx of Preganancy in last 3 No 10/02/25 11:23 Months Nurse Filling Out Transfusion ESTHER 10/02/25 11:23 & Questions: Date: 10/02/25 10/02/25 11:23 Time: :10/02/25 11:23 Patient unable to answer at this time (ie. 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: /Reproductive Hx- process control supervisor Hx Now No 10/02/25 11:23 Gestational Age (in weeks): EDC: Hx Hx Para Hx Section SAB No 10/02/25 11:23 Does the father of the baby or his family experience fever w Father of the baby Malignant Hypertension history comment [facility] Medical History (Updated 10/02/25 @ 11:33 by Elizabeth Vieira) Low iron Easy bruising GERD (gastroesophageal reflux disease) Carpal tunnel syndrome Insomnia KARINE (obstructive sleep apnea) Former smoker Depression Anxiety Alcohol use Anemia Back pain Migraine headache CPAP (continuous positive airway pressure) dependence Shortness of breath on exertion History of echocardiogram Seizures Cardiology follow-up encounter Polycystic ovary Hormone deficiency Rectal discomfort Constipation Hepatic steatosis Obesity, morbid, BMI 40.0-49.9 Hypothyroidism Normal spontaneous vaginal delivery Home Medications Medication Instructions Recorded Last Taken Type bupropion HCl 300 mg 24 hr tablet, 300 mg PO QHS 07/30/22 Unknown History extended release lurasidone 80 mg tablet (Latuda) 60 mg PO QHS 12/06/24 Unknown History clonazepam 0.5 mg tablet 0.5 mg PO BID 12/07/24 Unknown History cholecalciferol (vitamin D3) 50 4,000 unit PO DAILY 02/17/25 Unknown History mcg (2,000 unit) capsule ferrous sulfate 325 mg (65 mg 325 mg PO QDAY 02/17/25 Unknown History iron) tablet (FeroSul) levothyroxine 100 mcg tablet 100 mcg PO DAILY 02/17/25 Unknown History magnesium oxide 500 mg capsule 500 mg PO DAILY 02/17/25 Unknown History multivitamin 1 tab PO DAILY 02/17/25 Unknown History epinephrine 0.3 mg/0.3 mL 0.3 mg IM ONCE 03/09/25 Unknown History injection, auto-injector (EpiPen) bupropion HCl 150 mg 24 hr tablet, 150 mg PO QHS 03/20/25 Unknown History extended release Allergy/AdvReac Type Severity Reaction Status Date / Time bee venom protein (honey bee) AdvReac Severe Anaphylaxis Verified 10/02/25 11:20 Family History Father Hypertension Obesity Mother Hypertension Obesity Grandfather Colon cancer Uncle Colon cancer Surgical History (Updated 10/02/25 @ 11:23 by Elizabeth Vieira) History of liver biopsy History of colonoscopy H/O hernia repair H/O gastric sleeve Social History household members: spouse Smoking Status: Former smoker how long ago did patient quit smoking: quit 20 years ago alcohol intake: current alcohol intake frequency: holidays/special occasions only substance use type: does not use what type of physical activity do you participate in: walking frequency: 1-2 times per week additional social history: pt denies vaping, denies edibles, denies marijuana uses aspirin and ibuprofen as needed Audit: Pertinent Findings Pertinent Findings EKG Perinent findings: 02/22/2025. Normal sinus rhythm 74 bpm. Echo (EF%) pertinent findings: 08/2022: EF 65%, left atrium mildly enlarged, otherwise WNL Recommendation Anesthesia Recommendation Anesthesia recommendation: OPTIMIZED for anesthesia
[2025-10-12] VITALS (11 sets, daily range): BP systolic 103–133; BP diastolic 62–86; PULSE 57–72; RESP 16–18; TEMP 36.3–36.7; O2SAT 96–100; BMI 32.6
--- OUTSIDE RECORDS SUMMARY | 2025-10-12 07:00 | XMS RPT_ITS | CCD ---
Author Organization [facility] Care Team Providers Care Data Systems Analyst Name Role Phone Patricio Moeller MD Primary Care Provider PROVIDER, UNKNOWN Referring Unavailable HANNAH NEWELL Attending Unavailable Sunni, Patricio Primary Care Unavailable Carey Seals Attending Unavailable PROVIDER, UNKNOWN Referring Unavailable Sunni, Patricio Primary Care Unavailable Carey Seals Attending Unavailable PROVIDER, UNKNOWN Referring Unavailable Sunni, Patricio Primary Care Unavailable Dalton Martino Attending Unavailable Dalton Martino Referring Unavailable Sunni, Patricio Primary Care Unavailable PROVIDER, UNKNOWN Referring Unavailable Dalton Martino Attending Unavailable MAXIMO WALTERS Attending Unavail able PROVIDER, UNKNOWN Referring Unavailable Moeller, Patricio Primary Care Unavailable MAXIMO WALTERS Attending Unavail able PROVIDER, UNKNOWN Referring Unavailable Sunni, Patricio Primary Care Unavailable Moeller, Patricio Primary Care Unavailable PROVIDER, UNKNOWN Referring Unavailable HANNAH NEWELL Attending Unavailable Sunni, Patricio Primary Care Unavailable PROVIDER, UNKNOWN Referring Unavailable Carey Seals Attending Unavailable Dalton Martino Attending Unavailable PROVIDER, UNKNOWN Referring Unavailable Sunni, Patricio Primary Care Unavailable PROVIDER, UNKNOWN Referring Unavailable HANNAH NEWELL Attending Unavailable Sunni, Patricio Primary Care Unavailable Patricio Moeller MD Primary Care Provider Dr. Patricio Moeller Primary Care Provider Dr. Patricio Moeller Referring Provider [phone] Dr. Glynn Price Attending Provider [phone] Patricio Moeller MD Primary Care Provider Dalton Martino MD Unavailable Maddie Elias Unavailable Patricio Moeller MD Primary Care Provider [phone] Salena KEMP, Dalton Bernabe Unavailable [phone] Maddie Elias Unavailable Sunni KEMP, Patricio Downey Primary Care Provider Sunni KEMP, Patricio Downey Primary Care Provider PATRICIO MOELLER Referring Unavailable PATRICIO MOELLER Primary Care Unavailable HANNAH NEWELL Attending Unavailable PATRICIO MOELLER Primary Care Unavailable HANNAH NEWELL Attending Unavailable Sunni KEMP, Dr. Curry Primary Care Provider [phone] Sunni KEMP, Dr. Curry Attending Provider Sunni KEMP, Dr. Curry Referring Provider Wilfredo ZAPATA-CMary Attending Provider HANNAH NEWELL Attending Provider HANNAH NEWELL Referring Provider Dr. Tamra Abdullahi MD Attending Provider Agustín Castillo Attending Provider Nicole SÁNCHEZ, Dr. Menendez Attending Provider Nicole SÁNCHEZ, Dr. Menendez Other Provider Abhishek KEMP, Dr. Jerez Attending Provider Dr. Tamra Abdullahi MD Referring Provider Dr. Tamra Abdullahi MD Referring Provider Trisha Whitfield Attending Provider Unavailable Martin KEMP, Dr. Mar Attending Provider [phone] Heri KEMP, Dr. Kapoor Emergency Provider Agustín Castillo Referring Provider [phone] Sunni KEMP, Patricio Downey Primary Care Provider Zaid Salazar MD Unavailable Sunni KEMP, Dr. Curry Primary Care Provider [phone] Sunni KEMP, Dr. Curry Referring Provider Sunni KEMP, Dr. Curry Attending Provider Heri KEMP, Dr. Kapoor Attending Provider Martin KEMP, Dr. Mar Referring Provider Martin KEMP, Dr. Mar Other Provider Sunni KEMP, Dr. Curry Primary Care Provider Sunni KEMP, Dr. Curry Referring Provider Kaylen KEMP, Dr. Barboza Attending Provider RASHEEDA DHALIWAL Attending Unavailable MOELLER, PATRICIO R Primary Care Unavailable ISRA, RASHEEDA Farley Referring Unavailable MOELLER, PATRICIO R Primary Care Unavailable ISRA, RASHEEDA Farley Attending Unavailable MOELLER, PATRICIO R Referring Unavailable MOELLER, PATRICIO R Primary Care Unavailable ISRA, RASHEEDA Farley Attending Unavailable MOELLER, PATRICIO R Primary Care Unavailable Moeller, Patricio Primary Care Unavailable Moeller, Patricio Referring Unavailable Moeller, Patricio Attending Unavailable Wilberto Morales Attending Unavailable Moeller, Patricio Primary Care Unavailable Moeller, Patricio Referring Unavailable Moeller, Patricio Attending Unavailable Moeller, Patricio Primary Care Unavailable Mary Villalobos Attending Unavailable Moeller, Patricio Referring Unavailable Moeller, Patricio Primary Care Unavailable BegueSarah CNP Referring Unavail able Begue, Sarah Ortiz CNP Attending Unavail able Moeller, Patricio Primary Care Unavailable Moeller, Patricio Attending Unavailable Moeller, Patricio Referring Unavailable Moeller, Patricio Primary Care Unavailable Moeller, Patricio Attending Unavailable Moeller, Patricio Referring Unavailable Moeller, Patricio Primary Care Unavailable Moeller, Patricio Primary Care Unavailable Prah, Zaid Referring Unavailable Prah, Zaid Attending Unavailable Agustín Castillo Referring Unavailable Agustín Castillo Attending Unavailable Moeller, Patricio Primary Care Unavailable Moeller, Patricio Primary Care Unavailable Antwon Liriano Attending Unavailable MonserratazoTamra pierre Attending Unavailable GhazoulTamra Referring Unavailable GhazoulTamra Attending Unavailable Moeller, Patricio Primary Care Unavailable Ghazoul, Tamra Referring Unavailable GhazoulTamra Attending Unavailable Moeller, Patricio Referring Unavailable Moeller, Patricio Primary Care Unavailable Moeller, Patricio Primary Care Unavailable Moeller, Patricio Referring Unavailable Prah, Zaid Attending Unavailable Trisha Whitfield Attending Unavailable Moeller, Patricio Primary Care Unavailable Abhishek, Yessi Attending Unavailable Moeller, Patricio Primary Care Unavailable Ghazoul, Tamra Referring Unavailable Shon Rivera Attending Unavailable FriendShon Consulting Unavailable Moeller, Patricio Referring Unavailable Moeller, Patricio Primary Care Unavailable Agustín Castillo Attending Unavailable Moeller, Patricio Primary Care Unavailable Moeller, Patricio Referring Unavailable Moeller, Patricio Primary Care Unavailable Moeller, Patricio Referring Unavailable Prah, Zaid Attending Unavailable Agustín Castillo Attending Unavailable Moeller, Patricio Referring Unavailable Moeller, Patricoi Primary Care Unavailable Mary Villalobos Attending Unavailable Moeller, Patricio Referring Unavailable Moeller, Patricio Primary Care Unavailable Moeller, Patricio Attending Unavailable Moeller, Patricio Primary Care Unavailable Moeller, Patricio Referring Unavailable Prah, Zaid Consulting Unavailable Moeller, Patricio Primary Care Unavailable Moeller, Patricio Referring Unavailable Moeller, Patricio Attending Unavailable Tamra Abdullahi Attending Unavailable Monserratazoignacio, Tamra Referring Unavailable Moeller, Patricio Primary Care Unavailable Friend, Shon Attending Unavailable Moeller, Patricio Referring Unavailable Moeller, Patricio Primary Care Unavailable WILBERTO MORALES Attending Unavailable WILBERTO MORALES Referring Unavailable MOELLER, PATRICIO R Primary Care Unavailable WILBERTO MORALES Attending Unavailable MOELLER, PATRICIO R Primary Care Unavailable RASHEEDA DHALIWAL Referring Unavailable MOELLER, PATRICIO R Primary Care Unavailable RASHEEDA DHALIWAL Referring Unavailable MOELLER, PATRICIO R Primary Care Unavailable WILBERTO MORALES Attending Unavailable MOELLER, PATRICIO R Primary Care Unavailable WILBERTO MORALES Referring Unavailable MOELLER, PATRICIO R Primary Care Unavailable Allergies Allergy Classification Reported Allergen(s) Allergy Type Date of Onset Reaction(s) Facility (20 sources) bee venom Propensity to adverse reactions to drug 0 Anaphylaxis [facility] (20 sources) Honey bee venom Allergy to substance 0 Anaphylaxis [facility] (7 sources) Bee Sting; Translations: [BEE STING] Allergy to substance 0 Anaphylaxis [facility] (1 source) bee venom protein (honey bee) Drug allergy (disorder) 5 [facility] Repository Medications Current Medications Medication Drug Class(es) Dates Sig (Normalized) Sig (Original) 12 hr buPROPion hydrochloride 150 mg extended release oral tablet (20 sources) Aminoketone Start: 03-20-2025 take 1 tablet by mouth once daily in the morning Bupropion Hcl 150 mg tablet extended release 24 hr Active 150 mg PO EVERY MORNING March 20, 2025 12:00am Start: 07-25-2023 take 1 tablet by leticia th once daily in the morning buPROPion XL (WELLBUTRIN XL) 300 mg 24 hr tablet Take 300 mg by mouth every morning. 07/25/2023 Active Start: 12-03-2022 End: 01-16-2025 take 1 tablet by mouth once daily in the morning buPROPion XL (WELLBUTRIN XL) 150 mg 24 hr tablet Take 150 mg by mouth every morning. 07/25/2023 Active Start: 12-03-2022 buPROPion XL ( Wellbutrin XL) 150 MG 24 hr tablet every evening. 450mg total 0 12/03/2022 Active Start: 12-03-2022 buPROPion XL ( Wellbutrin XL) 150 MG 24 hr tablet Start: 02-09-2022 take 1 tablet by leticia th once daily in the morning buPROPion (WELLBUTRIN XL) 150 MG extended release tablet TAKE 1 TABLET BY MOUTH ONCE DAILY IN THE MORNING ALONG WITH 300 MG 0 02/09/2022 Active Start: 12-03-2020 End: 12-23-2022 take 1 tablet by mouth once daily Bupropion Hcl 300 mg tablet extended release 24 hr Discontinued 300 mg PO DAILY July 30, 2022 12:00am July 30, 2022 4:10pm Start: 12-03-2020 take 1 tablet by leticia th every twenty-four hours at bedtime Bupropion Hcl 300 mg tablet extended release 24 hr Active 300 mg PO AT BEDTIME July 30, 2022 4:09pm Start: 12-03-2020 take 450 mg by mouth once unique y Bupropion Hcl Active 450 MG PO DAILY July 30, 2022 4:09pm Comment on above: Take 150 mg by mouth every morning. Take 300 mg by mouth every morning. calcium carbonate 500 mg chewable tablet (9 sources) calcium carbonat e (Tums) 500 MG chewable tablet Chew 500 mg 3 times daily. 0 Active calcium citrate 500 mg oral tablet (10 sources) take 500 mg by mouth three times daily CALCIUM CITRATE PO Take 500 mg by mouth 3 times daily. Active cholecalciferol 0.05 mg oral capsule (20 sources) Vitamin D Start: 02-18-20 take 1 capsule by mouth once daily Cholecalciferol (Vitamin D3) 50 mcg (2,000 unit) capsule Active 4000 U PO DAILY February 17, 2025 12:00am Start: 12-16-2019 take 1 tablet by leticia th once daily cholecalciferol, vitamin D3, 4,000 unit tab Indications: Convulsions, unspecified convulsion type (HCC) Take 1 tablet by mouth once daily. 12/16/2019 Active Cholecalciferol (VITAMIN D3 PO) Take 4,000 Int'l Units by mouth before bedtime. Active Cholecalciferol (VITAMIN D3 PO) Take 4,000 Int'l Units by mouth before bedtime. 0 Active Comment on above: Take 1 tablet by leticia th once daily. clonazePAM 0.5 mg oral tablet (12 sources) Benzodiazepine Start: take 1 tablet by mouth twice daily Clonazepam 0.5 mg tablet Active 0.5 mg PO TWICE A DAY December 07, 2024 1:00am Start: 11-28-2020 End: 08-04-2023 take 1 tablet by mouth three times daily clonazePAM (KLONOPIN) 0.5 mg tablet Indications: Current severe episode of major depressive disorder without psychotic features, unspecified whether recurrent (HCC) Take 1 tablet by mouth three times daily for 30 days. 90 tablet 0 11/28/2020 08/04/2023 Discontinued (Other) Comment on above: Take 1 tablet by leticia three times daily for 30 days. CPAP Machine MISC (8 sources) CPAP Machine MIS C 11 cm by Does not apply route 11 cm H20 KARINE 0 Active [id number] 0.3 ml EPINEPHrine 1 mg/ml auto-injector (17 sources) alpha-Adrenergic Agonist, beta-Adrenergic Agonist, Catecholamine Start: 03-09-2025 Epinephrine (Epipen) 0.3 mg/0.3 mL auto-injector Active 0.3 mg IM ONCE March 09, 2025 12:00am as a single dose; may repeat once Start: 12-12-2019 EPINEPHrine (E PIPEN) 0.3 mg/0.3 mL auto-injector 12/12/2019 Active ferrous sulfate 325 mg oral tablet (6 sources) Start: 02-17-2025 take 1 tablet by mouth once daily Ferrous Sulfate (Ferosul) 325 mg (65 mg iron) tablet Active 325 mg PO daily February 17, 2025 12:00am levothyroxine sodium 0.1 mg oral tablet (20 sources) l-Thyroxi ne Start: 02-17-2025 take 1 tablet by mouth once daily Levothyroxine 100 mcg tablet Active 100 ug PO DAILY February 17, 2025 12:00am Start: 12-07-2024 Levothyroxine 112 mcg tablet Active 100 ug PO DAILY December 07, 2024 10:03am Start: 07-25-2023 End: 08-24-2024 take 1 tablet by mouth once levothyroxine (SYNTHROID) 100 mcg tablet Take 100 mcg by mouth every afternoon. 07/25/2023 Active Start: 07-30-2022 End: 12-07-2024 take 1 tablet by mouth once daily Levothyroxine 112 mcg tablet Discontinued 112 ug PO DAILY July 30, 2022 12:00am December 07, 2024 10:04am Start: 09-17-2015 End: 07-30-2022 take 1 tablet by mouth once daily Levothyroxine 88 MCG tablet Discontinued 88 ug PO DAILY September 17, 2015 1:00am July 30, 2022 12:05am levothyroxine (S YNTHROID) 100 MCG tablet Take 112 mcg by mouth every morning (before breakfast) HYPOTHYROIDISM 0 Active Comment on above: Take 100 mcg by mout h daily before breakfast. Take 1 tablet by leticia th every afternoon. lurasidone hydrochloride 80 mg oral tablet (20 sources) Atypical Antipsychotic Start: 11-23-2023 lurasidone (LATUDA) 20 mg tablet Take 20 mg by mouth. 11/23/2023 Active Start: 12-03-2022 End: 07-20-2023 Latuda 80 MG tablet Take 20 mg by mouth with evening meal. 0 12/03/2022 07/20/2023 Discontinued (Therapy completed) Start: 12-03-2022 Latuda 80 MG t ablet Take 60 mg by mouth with evening meal. 0 12/03/2022 Active Start: 07-30-2022 End: 12-06-2024 take 1 tablet by mouth at bedtime Lurasidone (Latuda) 80 mg tablet Active 20 mg PO AT BEDTIME December 06, 2024 8:05am Start: 07-30-2022 End: 07-30-2022 take 1 tablet by mouth once daily Lurasidone (Latuda) 40 mg tablet Discontinued 40 mg PO DAILY July 30, 2022 12:00am July 30, 2022 4:10pm Start: 11-28-2020 End: 08-04-2023 take 1 tablet by mouth twice daily at mealtime lurasidone (LATUDA) 40 mg tablet Take 1 tablet by mouth twice daily with meals. 60 tablet 0 11/28/2020 08/04/2023 Discontinued (Other) lurasidone (LATU DA) 120 MG tablet Comment on above: Take 1 tablet by leticia th twice daily with meals. Magnesium (14 sources) Start: 01-19-2023 take 1 capsule by mouth once daily Magnesium 400 MG capsule Take 1 capsule by mouth daily. 01/19/2023 Active Start: 01-19-2023 take 1 capsule by mo uth once daily Magnesium 400 MG capsule Take 1 capsule by mouth daily. 0 01/19/2023 Active magnesium oxide 500 mg oral capsule (6 sources) Start: 02-17-2025 take 1 capsule by mouth once daily Magnesium Oxide 500 mg capsule Active 500 mg PO DAILY February 17, 2025 12:00am magnesium oxide,aspartate,citr (TRIPLE MAGNESIUM COMPLEX) 400 mg magnesium cap (5 sources) Start: 01-19-2023 take 1 capsule by mouth once daily magnesium oxide,aspartate,citr (TRIPLE MAGNESIUM COMPLEX) 400 mg magnesium cap Take 1 capsule by mouth once daily. 01/19/2023 Active Start: 01-19-2023 take 1 capsule by mo uth once daily magnesium oxide,aspartate,citr (TRIPLE MAGNESIUM COMPLEX) 400 mg magnesium cap Take 1 capsule by mouth once daily. 0 01/19/2023 Active Comment on above: Take 1 capsule by mo uth once daily. Multiple Vitamin (MVI, CELEBRATE, CHEWABLE TABLET) (8 sources) Start: 12-16-2019 take 1 tablet by mouth once daily Multiple Vitamin (MVI, CELEBRATE, CHEWABLE TABLET) Take 1 tablet by mouth daily 0 12/16/2019 Active Multiple Vitamins-Iron (MULTIVITAMIN/IRON PO) (10 sources) Start: 03-26-2023 take 1 tablet by mouth once daily Multiple Vitamins-Iron (MULTIVITAMIN/IRON PO) Take 1 tablet by mouth daily. 03/26/2023 Active Start: 03-26-2023 take 1 tablet by leticia th once daily Multiple Vitamins-Iron (MULTIVITAMIN/IRON PO) Take 1 tablet by mouth daily. 0 03/26/2023 Active multivitamin tablet (5 sources) Start: 12-16-2019 take 1 tablet by mouth once daily multivitamin tablet Indications: Convulsions, unspecified convulsion type (HCC) Take 1 tablet by mouth once daily. 12/16/2019 Active Start: 12-16-2019 take 1 tablet by elticia th once daily multivitamin tablet Indications: Convulsions, unspecified convulsion type (HCC) Take 1 tablet by mouth once daily. 0 12/16/2019 Active Comment on above: Take 1 tablet by leticia th once daily. Multivitamin tablet (6 sources) Start: 02-17-2025 Multivitamin tablet Active 1 {tbl} PO DAILY February 17, 2025 12:00am multivitamin-children' s (Flintstones) 18 MG chewable tablet (9 sources) multivitamin-chi ldren 's (Flintstones) 18 MG chewable tablet Chew 1 tablet daily. 0 Active Vit,[id number] (Prenatabs Fa) 1 TABLET tablet (16 sources) Start: 09-17-2015 take 1 tablet by mouth once daily Vit,[id number] (Prenatabs Fa) 1 TABLET tablet Active 1 TABLET PO DAILY September 17, 2015 11:47am Start: 09-17-2015 End: 07-30-2022 take 1 tablet by mouth once daily Vit,[id number] (Prenatab s Fa) 1 TABLET tablet Discontinued 1 {tbl} PO DAILY September 17, 2015 1:00am July 30, 2022 12:05am Start: 09-17-2015 End: 07-30-2022 take 1 tablet by mouth once daily Vit,[id number] (Prenatab s Fa) 1 TABLET tablet Discontinued 1 TABLET PO DAILY September 17, 2015 1:00am July 30, 2022 12:05am Start: 09-17-2015 End: 07-30-2022 take 1 tablet by mouth once daily Vit,[id number]-Icrh-Sdlxx (Prenatab s Fa) 1 TABLET tablet Discontinued 1 TABLET PO DAILY September 17, 2015 12:00am July 29, 2022 11:05pm Start: 09-17-2015 take 1 tablet by leticia th once daily Vit,[id number] (Prenatab s Fa) 1 TABLET tablet Active 1 TABLET PO DAILY September 17, 2015 1:00am Respiratory Therapy Supplies (CareTouch 2 CPAP Hose Seed Buyer) misc (20 sources) Respiratory Ther apy Supplies (CareTouch 2 CPAP Hose Seed Buyer) [facility] [place] Indications: Obstructive Sleep Apnea Syndrome 11 cm. Active Respiratory Ther apy Supplies (CareTouch 2 CPAP Hose Seed Buyer) mis Indications: Obstructive Sleep Apnea Syndrome 11 cm. 0 Active Respiratory Ther apy Supplies (CareTouch 2 CPAP Hose Seed Buyer) [facility] [place] 11 cm. 0 Active vitamin b12 5 mg sublingual tablet (20 sources) Vitamin B12 Start: 07-23-2023 take 1 tablet under the tongue every week Cyanocobalamin (B-12) [address] 1 tablet under the tongue 1 (one) time per week. 07/23/2023 Active Start: 12-22-2022 Cyanocobalamin (VITAMIN B-12) 500 mcg lozg 12/22/2022 Active End: 07-23-2023 take 1 tablet by mouth once daily cyanocobalamin (Vitamin B-12) 500 MCG tablet Take 500 mcg by mouth daily. 0 07/23/2023 Discontinued (Other) Completed/Discontinued Medications Medication Drug Class(es) Dates Sig (Normalized) Sig (Original) acetaminophen 500 mg oral tablet (2 sources) Start: 12-22-2022 End: 12-22-2022 acetaminophen (Tylenol) tablet 1,000 mg acetaminophen 325 mg / oxyCODONE hydrochloride 5 mg oral tablet (11 sources) Opioid Agonist Start: 02-22-2025 End: 02-25-2025 Oxycodone-Acetaminop hen (Percocet) 5-325 mg tablet Discontinued 1 {tbl} PO THREE TIMES A DAY as needed for pain 8 3 0 February 22, 2025 February 24, 2025 12:00am February 25, 2025 12:09am Localized adiposity of abdomen Atrophy of skin Localized adiposity Atrophic disorder of skin, unspecified Start: 12-23-2022 End: 12-23-2022 take 1 tablet by mouth every four hours as needed for pain oxyCODONE-acetaminophen (Percocet) 5-325 MG per tablet 1 tablet Start: 12-22-2022 End: 12-30-2022 take 1 tablet by mouth every six hours as needed for pain oxyCODONE-acetaminophen (Percocet) 5-325 MG tablet Indications: Morbid obesity with body mass index (BMI) of 40.0 to 49.9 ([facility]) Take 1 tablet by mouth every 6 hours as needed for severe pain (7-10) for up to 5 days. 28 tablet 0 12/22/2022 12/30/2022 Active 12 hr buPROPion hydrochloride 90 mg / naltrexone hydrochloride 8 mg extended release oral tablet (1 source) Opioid Antagonist, Aminoketone End: 08-04-2023 take 2 tablets by mouth twice daily naltrexone-bupropion (CONTRAVE) 8-90 mg ER tablet Take 2 tablets by mouth twice daily. 0 08/04/2023 Discontinued (Other) Comment on above: Take 2 tablets by mo [facility] twice daily. celecoxib 400 mg oral capsule (2 sources) Nonsteroidal Anti-inflammatory Drug Start: 12-22-2022 End: 12-22-2022 celecoxib (CeleBREX) capsule 400 mg cephalexin 500 mg oral capsule (5 sources) Cephalosporin Antibacterial Start: 02-22-2025 End: 03-15-2025 take 1 capsule by mouth twice daily Cephalexin 500 mg capsule Discontinued 500 mg PO TWICE A DAY 14 February 22, 2025 12:00am March 15, 2025 4:02pm Diltiazem 2% / Lidocaine 5% Ointment (Compound) ointment (8 sources) Start: 01-04-2025 End: 03-15-2025 Diltiazem 2% / Lidocaine 5% Ointment (Compound) ointment Discontinued 0 .Route 30 January 04, 2025 1:00am March 15, 2025 4:02pm insert a pea sized amount into the rectum BID PRN pain Start: 01-04-2025 End: 03-15-2025 Diltiazem 2% / Lidocaine 5% Ointment (Compound) ointment Discontinued 0 .Route January 04, 2025 1:00am March 15, 2025 4:02pm insert a pea sized amount into the rectum BID PRN pain Start: 01-04-2025 Diltiazem 2% / Lidocaine 5% Ointment (Compound) ointment Active 0 .Route January 04, 2025 1:00am insert a pea sized amount into the rectum BID PRN pain docusate sodium 100 mg oral capsule (16 sources) Start: 09-20-2016 End: 07-30-2022 take 1 capsule by mouth twice daily as needed for constipation Docusate Sodium (Colace) 100 MG capsule Discontinued 100 mg PO TWICE DAILY NEEDED as needed for Constipation 60 0 September 20, 2016 1:00am July 30, 2022 12:05am 0.4 ml enoxaparin sodium 100 mg/ml prefilled syringe (2 sources) Low Molecular Weight Heparin Start: 12-22-2022 End: 12-23-2022 inject 40 mg by subcutaneous injection twice daily 40 mg, SubCUTAneous, 2 times daily, First dose on Thu12/22/22 at 2200, Phase II/On Unit Indication of Use: Prophylaxis-DVT/PE Indications: Prophylaxis of Venous Thromboembolism ethinyl estradiol 0.02 mg / norethindrone acetate 1 mg oral tablet (14 sources) Estrogen Start: 11-22-2022 End: 12-15-2022 norethindrone-ethiny l estradiol (Microgestin /) 1-20 MG-MCG tablet Start: 02-21-2022 norethindrone- ethinyl estradiol (MICROGESTIN /20) 1-20 MG- MCG per tablet famotidine 20 mg oral tablet (4 sources) Histamine-2 Receptor Antagonist Start: 12-22-2022 End: 12-23-2022 famotidine (Pepcid) tablet 20 mg FLUoxetine 20 mg oral capsule (1 source) Serotonin Reuptake Inhibitor Start: 11-28-2020 End: 08-04-2023 take 3 capsules by mouth once daily FLUoxetine (PROZAC) 20 mg capsule Take 3 capsules by mouth once daily. 90 capsule 0 11/28/2020 08/04/2023 Discontinued (Other) Comment on above: Take 3 capsules by m outh once daily. gabapentin 100 mg oral capsule (2 sources) Anti-epileptic Agent Start: 12-22-2022 End: 12-22-2022 gabapentin (Neurontin) capsule 100 mg 500 ml glucose 50 mg/ml / potassium chloride 0.02 meq/ml / sodium chloride 4.5 mg/ml injection (2 sources) Start: 12-22-2022 End: 12-23-2022 take 100 mL intravenously every hour 100 mL/hr, IntraVENous, Continuous, Starting on Thu12/22/22 at 1615, Phase II/On Unit 1 ml heparin sodium, porcine 5000 unt/ml prefilled syringe (2 sources) Unfractionated Heparin, Anti-coagulant Start: 12-22-2022 End: 12-22-2022 heparin injection 5,000 Units Hydrocortisone Acetate (Anusol-Hc) 25 mg suppository (8 sources) Start: 12-07-2024 End: 01-04-2025 Hydrocortisone Acetate (Anusol-Hc) 25 mg suppository Discontinued 25 mg RC AT BEDTIME 7 December 07, 2024 1:00am January 04, 2025 3:02pm hemorrhoids Start: 12-07-2024 End: 01-04-2025 Hydrocortisone Acetate (Anus ol-Hc) 25 mg suppository Discontinued 25 mg RC AT BEDTIME December 07, 2024 1:00am January 04, 2025 3:02pm 1 ml HYDROmorphone hydrochloride 1 mg/ml cartridge (2 sources) Opioid Agonist Start: 12-22-2022 End: 12-22-2022 HYDROmorphone (Dilaudid) injection 0.5 mg ibuprofen 800 mg oral tablet (16 sources) Nonsteroidal Anti-inflammatory Drug Start: 09-20-2016 End: 07-30-2022 take 1 tablet by mouth three times daily as needed for pain Ibuprofen (Motrin) 800 MG tablet Discontinued 800 mg PO 3 TIMES DAILY NEEDED as needed for Pain 40 September 20, 2016 1:00am July 30, 2022 12:05am 1 ml ketorolac tromethamine 30 mg/ml cartridge (2 sources) Nonsteroidal Anti-inflammatory Drug, Cyclooxygenase Inhibitor Start: 12-22-2022 End: 12-23-2022 30 mg, IntraVENous, Every 6 hours scheduled (4 times per day), First dose on Thu12/22/22 at 1900, For 3 days 1 ml LORazepam 2 mg/ml injection (2 sources) Benzodiazepine Start: 12-22-2022 End: 12-22-2022 LORazepam (Ativan) injection 0.5 mg morphine injection 2 mg (2 sources) Start: 12-22-2022 End: 12-23-2022 morphine injection 2 mg nitrofurantoin, macrocrystals 25 mg / nitrofurantoin, monohydrate 75 mg oral capsule (3 sources) Nitrofuran Antibacterial Start: 03-20-2025 End: 03-25-2025 take 1 capsule by mouth every twelve hours at mealtime Nitrofurantoin Monohyd/M-Cryst (Macrobid) 100 mg capsule Discontinued 100 mg PO Q12H 10 5 0 March 20, 2025 12:00am March 24, 2025 12:00am March 25, 2025 12:10am must administer with a meal/food nystatin [id number] unt/ml oral suspension (9 sources) Polyene Antifungal Start: 01-08-2023 End: 01-22-2023 take 5 mL by mouth three times daily, then take 5 mL by mouth three times daily nystatin (Mycostatin) [id number] UNIT/ML suspension Indications: Oropharyngeal Candidiasis Swish and spit 5 mL (500,000 Units) 3 times daily. Swish and spit 5 mLs by mouth three times daily for 10 days. 150 mL 1 01/08/2023 01/22/2023 Discontinued (Therapy completed) omeprazole 20 mg delayed release oral capsule (20 sources) Proton Pump Inhibitor Start: 12-04-2022 End: 07-18-2024 take 1 capsule by mouth once daily omeprazole (PriLOSEC) [address] capsule Take 1 capsule (20 mg) by mouth daily. Do not crush or chew. 90 capsule 1 12/04/2022 07/18/2024 Discontinued ondansetron 4 mg disintegrating oral tablet (20 sources) Serotonin-3 Receptor Antagonist Start: 12-29-2024 End: 03-15-2025 take 2 tablets by mouth every two hours as needed for nausea and vomiting, then take 1 tablet by mouth every four hours as needed for nausea and vomiting Ondansetron 4 mg tablet,disintegrati ng Discontinued 4 mg PO Q4H as needed for nausea and vomiting January 30, 2025 12:00am March 15, 2025 4:02pm 4 mg orally; take two tablets PO two hours prior to start of bowel prep and one every 4 hours as needed for N/V Start: 12-22-2022 End: 01-02-2023 take 2 tablets by mouth every eight hours as needed for nausea and vomiting ondansetron (Zofran) 4 MG tablet Take 2 tablets (8 mg) by mouth every 8 hours as needed for nausea or vomiting for up to 7 days. 60 tablet 0 12/22/2022 01/02/2023 Active ondansetron ODT (Zofran-ODT) disintegrating tablet 4 mg (2 sources) Start: 12-22-2022 End: 12-23-2022 take 1 tablet by mouth every eight hours as needed for nausea and vomiting ondansetron ODT (Zofran-ODT) disintegrating tablet 4 mg pantoprazole 40 mg injection (2 sources) Proton Pump Inhibitor Start: 12-22-2022 End: 12-23-2022 40 mg, IntraVENous, Administer over 2 Minutes, Daily, First dose on Thu12/22/22 at 1615, Phase II/On Unit propranolol hydrochloride 20 mg oral tablet (20 sources) beta-Adrenergic Himanshu Start: 12-03-2022 End: 12-23-2022 take 20 mg by mouth once daily in the evening 20 mg, Oral, Every evening, First dose on Thu12/22/22 at 1800 Hold if HR is < 65 or if SBP is < 100 Start: 11-28-2020 End: 12-06-2024 take 1 tablet by mouth twice daily Propranolol 20 mg tablet Discontinued 20 mg PO TWICE A DAY July 30, 2022 12:00am December 06, 2024 8:05am Comment on above: Take 1 tablet by leticia twice daily. Sod Sulf-Pot Chloride-Mag Sulf (8 sources) Start: 12-29-2024 End: 01-30-2025 take 1.479 tablets by mouth once Sod Sulf-Pot Chloride-Mag Sulf (Sutab) 1.479-0.188- 0.225 gram tablet Discontinued 0 PO per package directions December 29, 2024 1:00am January 30, 2025 11:45am do NOT follow instructions on the box, follow instructions provided by your GI office Start: 12-29-2024 End: 01-30-2025 take 1.479 tablets by mouth once Sod Sulf-Pot Chloride-Mag Sulf (Sutab) 1.479-0.188- 0.225 gram tablet Discontinued 0 PO per package directions December 29, 2024 1:00am January 30, 2025 11:45am do NOT follow instructions on the box, follow instructions provided by your GI office 50 ml sodium chloride 9 mg/m l injection (8 sources) Start: 12-22-2022 End: 12-23-2022 sodium chloride 0.9 % bolus 500 mL Start: 12-22-2022 End: 12-23-2022 5-250 mL/hr, IntraVENous, MN N, if patient receiving piggyback infusions and maintenance fluids are not ordered OR KVO fluids to protect IV site / prevent frequent line interruptions/ long duration, Starting on Thu12/22/22 at 1605, Phase II/On Unit For piggyback infusion, administer at same rate as piggyback for a total of 25 mL. Enter 25 mL into dose field and piggyback rate into rate field of order. If piggyback is infusing at a rate less than 100 mL/hr, enter 25 mL into dose field and 100 mL/hr into rate field of order. For KVO fluids, enter rate of 20 mL/hr or less into rate field of order. Start: 12-22-2022 End: 12-23-2022 take 10 mL intravenously once 10 mL, IntraVENous, PRN, line care, Starting on Thu12/22/22 at 1605, Phase II/On Unit After every IV line use ursodiol 300 mg oral capsule (17 sources) Bile Acid Start: 12-04-2022 End: 03-04-2023 take 1 capsule by mouth twice daily ursodiol (Actigall) 300 MG capsule Take 1 capsule (300 mg) by mouth 2 times daily. 180 capsule 0 12/04/2022 03/04/2023 Problems Active Problems Problem Classification Problem Date Documented Da te Episodic/Chronic Deficiency and other anemia (10 sources) Iron-refractory iron deficiency anemia; Translations: [Other iron deficiency anemias] 03-15-2025 Episodic Deficiency and other anemia (7 sources) Anemia; Translations: [Anemia, unspecified] 03-15-2025 Episodic Deficiency and other anemia (1 source) Iron deficiency anemia secondary to inadequate dietary iron intake; Translations: [Other iron deficiency anemias] 04-17-2025 Episodic Deficiency and other anemia (3 sources) Other iron deficiency anemias; Translations: [Iron deficiency anemia secondary to inadequate dietary iron intake] Onset: Episodic Deficiency and other anemia (2 sources) Deficiency and other anemia Diabetes mellitus without complication (1 source) Decreased glucose level; Translations: [Other abnormal glucose] 07-23-2023 Episodic Esophageal disorders (20 sources) Gastroesophageal reflux disease without esophagitis; Translations: [Gastro-esophageal reflux disease without esophagitis] Onset: 2 Chronic Essential hypertension (2 sources) Essential (primary) hypertension; Translations: [Essential (primary) hypertension] Onset: 2 Chronic Gastritis and duodenitis (20 sources) Chronic superficial gastritis; Translations: [Chronic superficial gastritis without bleeding] Onset: 2 Chronic Hemorrhoids (20 sources) Hemorrhoids; Translations: [Unspecified hemorrhoids] 12-07-2024 Episodic Menstrual disorders (3 sources) Excessive and frequent menstruation with regular cycle; Translations: [Dysmenorrhea, unspecified] Onset: 5 Chronic Miscellaneous mental health disorders (2 sources) Eating disorder, unspecified; Translations: [Eating disorder, unspecified] Onset: 2 Chronic Mood disorders (9 sources) Major depressive disorder, recurrent, mild; Translations: [Bipolar disorder, unspecified] Onset: 1 Chronic Other aftercare (8 sources) Postoperative visit; Translations: [Encounter for other specified surgical aftercare] Episodic Other disorders of stomach and duodenum (2 sources) Disease of stomach and duodenum, unspecified; Translations: [Disease of stomach and duodenum, unspecified] Onset: 2 Episodic Other female genital disorders (1 source) Polyp of corpus uteri; Translations: [Endometrial polyp] Onset: 5 Episodic Other gastrointestinal disorders (4 sources) Intestinal malabsorption; Translations: [Intestinal malabsorption, unspecified] 07-18-2024 Chronic Other gastrointestinal disorders (4 sources) Intestinal malabsorption, unspecified; Translations: [Intestinal malabsorption, unspecified] Onset: 5 Chronic Other gastrointestinal disorders (1 source) Abnormal intestinal absorption; Translations: [Intestinal malabsorption, unspecified] 04-17-2025 Chronic Other gastrointestinal disorders (20 sources) Tenesmus - anal; Translations: [Other specified symptoms and signs involving the digestive system and abdomen] 12-07-2024 Episodic Other hematologic conditions (1 source) Protein level - finding; Translations: [Other specified abnormalities of plasma proteins] 07-23-2023 Episodic Other liver diseases (20 sources) Steatosis of liver; Translations: [Fatty (change of) liver, not elsewhere classified] Onset: 3 12-22-2022 Chronic Other nutritional; endocrine; and metabolic disorders (20 sources) Morbid obesity; Translations: [Morbid (severe) obesity due to excess calories] Onset: 2 02-24-2022 Chronic Other nutritional; endocrine; and metabolic disorders (2 sources) Body mass index (BMI) 45.0-49.9, adult; Translations: [Body mass index [BMI] 45.0-49.9, adult] Onset: 2 Chronic Other nutritional; endocrine; and metabolic disorders (2 sources) Morbid (severe) obesity due to excess calories; Translations: [Morbid (severe) obesity due to excess calories] Onset: 2 Chronic Other nutritional; endocrine; and metabolic disorders (2 sources) Body mass index (BMI) 40.0-44.9, adult; Translations: [Body mass index [BMI] 40.0-44.9, adult] Onset: 2 Chronic Other nutritional; endocrine; and metabolic disorders (20 sources) Body mass index 40+ - severely obese; Translations: [Morbid (severe) obesity due to excess calories] Onset: 3 12-22-2022 Chronic Other nutritional; endocrine; and metabolic disorders (1 source) Obesity; Translations: [Other obesity due to excess calories] 07-20-2023 Chronic Other nutritional; endocrine; and metabolic disorders (1 source) Hypervitaminosis D; Translations: [Hypervitaminosis D] 07-23-2023 Chronic Other nutritional; endocrine; and metabolic disorders (7 sources) Obesity caused by energy imbalance; Translations: [Other obesity due to excess calories] 12-24-2023 Chronic Other nutritional; endocrine; and metabolic disorders (4 sources) Body mass index 30+ - obesity; Translations: [Body mass index (BMI) 31.0-31.9, adult] 07-18-2024 Chronic Other nutritional; endocrine; and metabolic disorders (2 sources) Body mass index (BMI) 30.0-30.9, adult; Translations: [Body mass index (BMI) 30.0-30.9, adult] Onset: 5 Chronic Other nutritional; endocrine; and metabolic disorders (2 sources) Other obesity due to excess calories; Translations: [Other obesity due to excess calories] Onset: 5 Chronic Other nutritional; endocrine; and metabolic disorders (2 sources) Body mass index (BMI) 31.0-31.9, adult; Translations: [Body mass index (BMI) 31.0-31.9, adult] Onset: 4 Chronic Other nutritional; endocrine; and metabolic disorders (20 sources) Localized adiposity; Translations: [Localized adiposity] 01-25-2025 Chronic Other nutritional; endocrine; and metabolic disorders (1 source) Localized adiposity; Translations: [Localized adiposity] Onset: 5 Chronic Other and delivery including normal (16 sources) Delivery normal; Translations: [Encounter for full-term uncomplicated delivery] 07-30-2022 Episodic Other screening for suspected conditions (not mental disorders or infectious disease) (8 sources) Other specified abnormal findings of blood chemistry; Translations: [Other nonspecific findings on examination of blood] Onset: 4 07-23-2023 Episodic Other skin disorders (20 sources) Atrophic condition of skin; Translations: [Atrophic disorder of skin, unspecified] 01-25-2025 Episodic Residual codes; unclassified (4 sources) Obstructive sleep apnea (adult) (pediatric); Translations: [Obstructive sleep apnea (adult) (pediatric)] Onset: 2 Chronic Residual codes; unclassified (2 sources) Dependence on other enabling machines and devices; Translations: [Dependence on other enabling machines and devices] Onset: 2 Chronic Residual codes; unclassified (20 sources) Obstructive sleep apnea syndrome; Translations: [Obstructive sleep apnea (adult) (pediatric)] Onset: 3 12-22-2022 Chronic Residual codes; unclassified (5 sources) History of sleeve gastrectomy; Translations: [Acquired absence of stomach [part of]] 12-24-2023 Episodic Residual codes; unclassified (20 sources) Patient encounter status; Translations: [Encounter for cosmetic surgery] 01-25-2025 Episodic Thyroid disorders (20 sources) Hypothyroidism; Translations: [Hypothyroidism, unspecified] Onset: 7 02-27-2022 Chronic Comment on above: ON MED Unclassified (4 sources) K95.89 - Other complications of other bariatric procedure,D50.8 - Other iron deficiency anemias Unclassified (2 sources) Iron deficiency anemia following bariatric surgery Past or Other Problems Problem Classification Problem Date Documented Da te Episodic/Chronic Abdominal hernia (20 sources) Diaphragmatic hernia without obstruction or gangrene; Translations: [Hiatal hernia] Onset: 04-16-2022 Episodic Abdominal pain (3 sources) Generalized abdominal pain; Translations: [Generalized abdominal pain] Onset: 04-02-2022 Episodic Complications of surgical procedures or medical care (11 sources) Iron deficiency anemia; Translations: [Other complications of other bariatric procedure] Onset: 05-24-2025 03-15-2025 Episodic Comment on above: S/P IV Iron replacem ent.Iron profile and Hgb are normal today. Conditions associated with dizziness or vertigo (5 sources) Lightheadedness; Translations: [Dizziness and giddiness] Onset: 03-23-2025 03-18-2025 Episodic Deficiency and other anemia (3 sources) Anemia, unspecified; Translations: [Anemia, unspecified type] Onset: 03-11-2025 Episodic Deficiency and other anemia (1 source) Iron deficiency anemia, unspecified; Translations: [Iron deficiency anemia, unspecified] Onset: 03-15-2025 Episodic Gastrointestinal hemorrhage (18 sources) Rectal hemorrhage; Translations: [Hemorrhage of anus and rectum] Onset: 02-10-2025 02-01-2025 Episodic Genitourinary symptoms and ill-defined conditions (1 source) Painful micturition, unspecified; Translations: [Painful micturition, unspecified] Onset: 03-23-2025 Episodic Immunizations and screening for infectious disease (20 sources) Other specified abnormal immunological findings in serum; Translations: [Other and unspecified nonspecific immunological findings] Onset: 12-30-2022 12-30-2022 Episodic Nutritional deficiencies (20 sources) Deficiency of multiple nutrient elements; Translations: [Deficiency of multiple nutrient elements] Onset: 12-18-2023 Episodic Other gastrointestinal disorders (2 sources) Heartburn; Translations: [Heartburn] Onset: 04-16-2022 Episodic Other gastrointestinal disorders (1 source) Other specified symptoms and signs involving the digestive system and abdomen; Translations: [Other specified symptoms and signs involving the digestive system and abdomen] Onset: 02-10-2025 Episodic Other gastrointestinal disorders (1 source) Constipation, unspecified; Translations: [Constipation, unspecified] Onset: 12-07-2024 Episodic Other skin disorders (1 source) Atrophic disorder of skin, unspecified; Translations: [Atrophic disorder of skin, unspecified] Onset: 03-29-2025 Episodic Residual codes; unclassified (2 sources) Acquired absence of stomach [part of]; Translations: [History of sleeve gastrectomy] Onset: 04-05-2025 Episodic Residual codes; unclassified (1 source) Encounter for cosmetic surgery; Translations: [Encounter for cosmetic surgery] Onset: 03-29-2025 Episodic Spondylosis; intervertebral disc disorders; other back problems (20 sources) Backache; Translations: [Dorsalgia, unspecified] Onset: 02-27-2022 02-27-2022 Episodic Results Test Name Value Interpretation Reference Range Facility [facility] 09-20-2025 [facility] Telephone (Q) LANA ADAME ([id number]) 1985 F [place] Date Time Provider Department 09/20/25 WILBERTO MORALES [facility] During your visit today, we recorded the following information about you: Tamika Martinez 09/20/2025 10:10 AM Signed Called patient left message to advise surgery is scheduled for 10/[address] Morales. Tamika SANCHEZ Allergies As of Date: 09/20/2025 Noted Allergy Reaction BEE STING 12/16/2019 10 - Anaphylaxis Date Reviewed: 09/13/2025 Reviewed by: Wilberto Morales MD - Fully Assessed Prescriptions as of 09/20/2025 - lurasidone (LATUDA) 60 mg tablet - clonazePAM (KLONOPIN) 0.5 mg tablet Take 0.5 mg by mouth two times a day. - magnesium oxide,aspartate,citr (TRIPLE MAGNESIUM COMPLEX) 400 mg magnesium cap Take 1 capsule by mouth once daily. - buPROPion XL (WELLBUTRIN XL) 150 mg 24 hr tablet Take 150 mg by mouth every morning. - buPROPion XL (WELLBUTRIN XL) 300 mg 24 hr tablet Take 300 mg by mouth every morning. - Cyanocobalamin (VITAMIN B-12) 500 mcg lozg - levothyroxine (SYNTHROID) 100 mcg tablet Take 100 mcg by mouth every afternoon. - EPINEPHrine (EPIPEN) 0.3 mg/0.3 mL auto-injector - cholecalciferol, vitamin D3, 4,000 unit tab Take 1 tablet by mouth once daily. - multivitamin tablet Take 1 tablet by mouth once daily. Problem List As Of Date 09/20/2025 Noted Resolved Hypothyroidism unspecified [E03.9] 08/13/2017 Major depressive disorder [F32.9] 11/27/2020 Menorrhagia with regular cycle [N92.0] 08/01/2025 Dysmenorrhea [N94.6] 08/01/2025 Endometrial polyp [N84.0] 08/03/2025 Adenomyosis of the uterus [N80.03] 08/03/2025 Complex cyst of right ovary [N83.291] 08/03/2025 Encounter Status:Closed by TAMIKA MARTINEZ on 09/20/25 [facility]OVon 08-23-2025 CNOV Office Visit (OBGYWM ) LANA ADAME ([id number]) 1985 F [place] Date Time Provider Department 08/23/25 10:10 AM WILBERTO MORALES [facility] During your visit today, we recorded the following information about you: Blood pressure Weight 126/82 79.4 kg Wilberto Morales MD 08/23/2025 10:41 AM Signed Lana Adame presents for hysteroscopy. Indication: Menorrhagia. Age: [age] year old LMP: Patient's last menstrual period was 07/30/2025 (exact date). Contraception: vasectomy test: negative VS: LMP 07/30/2025 UNIVERSAL PROTOCOL / SAFETY CHECKLIST Procedure to be Performed: Office hysteroscopy with endometrial biopsy, possible polyp resection Sign In: A Moment of CARE was completed. Appropriate PPE (Personal Protective Equipment) worn by all providers involved with the procedure. Special equipment utilized endosee. Patient/Surrogate Stated/Verified: Patient name, Date of , Relevant allergies, and The intended procedure Time Out: Relevant labs, photos, and/or imaging studies have been reviewed. Intended patient and procedure match the source document(s) (e.g. consent, HANDP, associated studies [imaging, pathology]) are not applicable. Consent obtained and matches the intended procedure. Yes. Correct side/site is not applicable. Medications required for this procedure are verified. Fire risk assessed and is not applicable. Implants: are not applicable. Sign Out: Specimens are all correctly labeled and sent. All instruments, equipment, possible retained foreign bodies are accounted for. Yes. The post-procedure plan of care has been communicated to the patient or surrogate. OBJECTIVE: Cervix cleaned with betadine. A single tooth tenaculum was used to grasp cervix. Under sterile conditions, using 20 mL normal saline as distention, ENDOSEE hysteroscopy performed without incident. No endocervical lesions seen. Endometrial lining is normal. No intrauterine lesions. Tubal ostia visualized and normal. Endometrial biopsy performed. PROCEDURE SUMMARY: Patient tolerated procedure well. ASSESMENT: Menorrhagia with no lesions on hysteroscopy. PLAN: Follow up endometrial biopsy results. Wilberto Morales MD [place], [place] 08/23/2025 10:16 AM Signed Post-Procedure Instructions Endometrial Biopsy Instructions: You may experience irregular bleeding / spotting for up to a week after this procedure. Use a panty liner or pad instead of tampons for about one week. Avoid vaginal intercourse or putting anything in your vagina for about one week. Pain Control / Medications: Take 600 mg of ibuprofen (Advil, Motrin, etc.) or 1000 mg of acetaminophen (Tylenol) every 6 hours as needed for pain Do not take more than 2400 mg of ibuprofen or 4000 mg of acetaminophen in any 24 hour period You can also put a heating pad on your abdomen to help with pain. Call your provider's office if you: Have a fever greater than 100.4? F (38.0? C) Have very heavy bleeding (soaking 1 large pad an hour for 2 hours in a row) Prolonged vaginal bleeding for > 7 days following your procedure Have severe cramps that do not go away after you take ibuprofen or acetaminophen Have foul smelling vaginal discharge Follow-Up: Your specific follow up plan will depend on the results of the biopsy. Most biopsy results are available in 3 to 5 business days via [employer], unless a different method of communication was discussed today with your provider. Referring Provider: WILBERTO MORALES [[id number]] Allergies As of Date: 08/23/2025 Noted Allergy Reaction BEE STING 12/16/2019 10 - Anaphylaxis Date Reviewed: 08/23/2025 Reviewed by: Wilberto Morales MD - Fully Assessed Reason for Visit: endosee with emb [Other] Primary Visit Diagnosis:Menorrhagia with regular cycle [N92.0] Other Visit Diagnosis:Endometrial polyp [N84.0] Order(s):UA DIP,URINE HCG (POC) [2037937] Order #: [id number]. #:[id number] -LAB SURGICAL PATHOLOGY [[id number]] Order #: [id number] Prescriptions as of 08/23/2025 - lurasidone (LATUDA) 60 mg tablet - lurasidone (LATUDA) 40 mg tablet Take 40 mg by mouth. - clonazePAM (KLONOPIN) 0.5 mg tablet Take 0.5 mg by mouth two times a day. - lurasidone (LATUDA) 20 mg tablet Take 20 mg by mouth. - magnesium oxide,aspartate,citr (TRIPLE MAGNESIUM COMPLEX) 400 mg magnesium cap Take 1 capsule by mouth once daily. - buPROPion XL (WELLBUTRIN XL) 150 mg 24 hr tablet Take 150 mg by mouth every morning. - buPROPion XL (WELLBUTRIN XL) 300 mg 24 hr tablet Take 300 mg by mouth every morning. - Cyanocobalamin (VITAMIN B-12) 500 mcg lozg - levothyroxine (SYNTHROID) 100 mcg tablet Take 100 mcg by mouth every afternoon. - EPINEPHrine (EPIPEN) 0.3 mg/0.3 mL auto-injector - cholecalciferol, vitamin D3, 4,000 unit tab Take 1 tablet by mouth once daily. - multivitamin tablet (more content not included)... Normal [facility] Pathology biopsy report Serg (Tiss)on 08-23-2025 AP DISCLAIMER Normal [facility] Comment on above: Order Comment: Speci men Type: TISSUE SPECIMEN Ordering Facility: [facility] Address: [address] [place] [address] Result Comment: Marleny roman Developed Test (LDT) Disclaimer: Performance characteristics of immunohistochemical, immunofluorescent, and chromogenic in-situ hybridization tests have been determined by the performing laboratory within the [facility] Department of Pathology and Laboratory Medicine ([facility], [facility], [facility], [facility], [facility], or [facility]) in a manner consistent with CLIA requirements. One or more of these tests may not have been cleared or approved by the FDA. The [facility] Department of Pathology and Laboratory Medicine is regulated under CLIA as qualified to perform high-complexity testing. These tests are used for clinical purposes. These should not be regarded as investigational or for research. Positive and negative controls stain appropriately. Performed By: #### 6 [id number] #### [facility] CLIA [id number] [address] [place] [address] [place] CASE REPORT Normal [facility] Comment on above: Order Comment: Speci men Type: TISSUE SPECIMEN Ordering Facility: [facility] Address: [address] [place] [address] Result Comment: Surg [facility] Pathology Report Case: [id number] Authorizing Provider: Wilberto Morales MD Collected: 08/23/2025 10:58 AM Ordering Location: OB/Gynecology Received: 08/23/2025 11:39 AM Pathologist: Erica Jackson MD Specimen: Endometrium, Biopsy Performed By: #### 6 [id number] #### [facility] CLIA [id number] [address] [place] [address] [place] CLINICAL HISTORY menorrhagia with reg ular cycle Normal [facility] Comment on above: Order Comment: Speci men Type: TISSUE SPECIMEN Ordering Facility: [facility] Address: [address] [place] [address] Performed By: #### 6 [id number] #### [facility] CLIA [id number] [address] [place] [address] [place] FINAL DIAGNOSIS Normal [facility] Comment on above: Order Comment: Speci men Type: TISSUE SPECIMEN Ordering Facility: [facility] Address: [address] [place] [address] Result Comment: Endo metrium, biopsy: Early secretory pattern endometrium. at 1452 EDT Performed By: #### 6 6121-5 #### [facility] CLIA [id number] [address] [place] [address] [place] FINAL PERFORMING LAB Normal [facility] Comment on above: Order Comment: Speci men Type: TISSUE SPECIMEN Ordering Facility: [facility] Address: [address] [place] [address] Result Comment: Diag nostic interpretation performed at: [facility], [address] [place] [address] CLIA# [id number] Mapping Pilot: Jeremiah Crawley MD Performed By: #### 6 6121-5 #### [facility] CLIA [id number] [address] [place] [address] [place] GROSS DESCRIPTION Normal [facility] Comment on above: Order Comment: Speci men Type: TISSUE SPECIMEN Ordering Facility: [facility] Address: [address] [place] [address] Result Comment: A. E ndometrium, Biopsy Received in formalin are multiple burnett to brown, soft feathery segments of tissue admixed with mucinous material aggregating to 4.6 x 2.0 x 0.1 cm. Totally submitted in two cassettes. DB August 23, 2025 5:17 PM Gross examination performed at [facility], [address] [place] [address] Performed By: #### 6 6121-5 #### [facility] CLIA [id number] [address] [place] [address] [place] CNOVSPon 08-16-2025 CNOVSP Visit (SP) Office ( EMBATH) LANA ADAME ([id number]) 1985 F [place] Date Time Provider Department 08/16/25 9:30 AM RASHEEDA DHALIWAL During your visit today, we recorded the following information about you: Temperature Pulse Blood pressure Weight 97.7 degrees 64/minute 125/85 79 kg Height 1.575 m Gissell Martínez APRN.JORGE 08/16/2025 9:44 AM Addendum Gissell Martínez APRN.CNP 08/16/2025 9:[address] [facility] CLINICAL NOTE Department of Hematology and Medical Oncology PATIENT NAME: Lana Adame CLINIC NO.: [id number] ATTENDING PHYSICIAN: DATE OF SERVICE: 08/16/2025 39 year old female who presents for follow up of iron deficiency anemia INTERIM HISTORY: 39 year old female who presents for follow up of iron deficiency anemia. She has been feeling well since her last iron infusions. She denies and headaches, dizziness, fatigue, CP, sob, abdominal pain, no blood in urine or stools, no swelling. She has recently been having heavy menstruation with her last cycle lasting 11 days. She is following with OBGYN and is having an endometrial biopsy on 08/23. DIAGNOSIS: - Iron deficiency anemia HISTORY OF PRESENT ILLNESS: - 39 year old female who was seen for iron deficiency anemia in March. At that time there were no recent records available for review. She stated that she was admitted to [facility] and was given IV Iron at that time. Following that visit she had labs drawn and hgb was 11.4, MCV 86.4, plt 287, iron 82, tibc 359, transferrin sat MEDICATIONS: Per [employer]. REVIEW OF SYSTEMS: GENERAL: No weight loss, malaise, fevers, or fatigue. HEENT: Negative for frequent or significant headaches, no changes in vision or hearing, no nose bleeds or other nasal problems. NECK: Negative for lumps, goiter, pain, and significant neck swelling. RESPIRATORY: Negative for cough, dyspnea, or shortness of breath. CARDIOVASCULAR: Negative for chest pain, leg swelling, CHF, or palpitations. GI: No nausea, vomiting, diarrhea, heartburn, abdominal pain, blood in stool, or black stool. GENITOURINARY: No history of dysuria, frequency, or incontinence. Positive for menorrhagia (heavy menstrual bleeding). MUSCULOSKELETAL: Negative for joint pain or swelling, or muscle pain. No back pain. SKIN: Negative for lesions, rash, and itching. PSYCH: Negative for anxiety or depression. HEMATOLOGY/LYMPHOLOGY: No abnormal bruising or other bleeding concerns. NEURO: No history of headaches, syncope, paralysis, seizures, or tremors. Negative for dizziness. ENDOCRINE: No history of polydipsia, increased thirst, or other endocrine symptoms. ECOG PS = Eastern Cooperative Oncology Group (ECOG): 0: Fully active, able to carry on all pre-disease performance without restriction PHYSICAL EXAMINATION: General: NAD, WD, WN, well-appearing; conversant, appropriately interactive HEENT: normocephalic; no temporal wasting; normal conjunctiva; no scleral icterus; normal hearing; lips without lesions Respiratory: normal respiratory effort; no respiratory distress or use of accessory muscles; no audible wheezing; no cough. Extremities: No visible edema Skin: no visible rash or skin lesions on face/neck; normal pallor; no jaundice Neurologic: alert AND oriented x 3, no focal deficits; able to sit and rise from chair without pain or difficulty Psychiatric: affect normal, mood normal, behavior normal, thought content normal, judgment normal VITALS: HR 64, BP 125/85, 98% on RA DIAGNOSTIC STUDIES: Latest Ref [facility] 07/25/2025 WBC 3.70 - 11.00 k/uL 7.14 RBC 3.90 - 5.20 m/uL 4.25 Hemoglobin 11.5 - 15.5 g/dL 12.8 Hematocrit 36.0 - 46.0 % 37.4 MCV 80.0 - 100.0 fL 88.0 MCH 26.0 - 34.0 pg 30.1 MCHC 30.5 - 36.0 g/dL 34.2 RDW-CV 11.5 - 15.0 % 12.2 Platelet Count 150 - 400 k/uL 280 MPV 9.0 - 12.7 fL 11.3 Neut% % 68.8 Abs Neut (ANC) 1.45 - 7.50 k/uL 4.91 Lymph% % 22.1 Abs Lymph 1.00 - 4.00 k/uL 1.58 Rush% % 6.2 Abs Rush <0.87 k/uL 0.44 Eosin% % 1.5 Abs Eosin <0.46 k/uL 0.11 Baso% % 0.8 Abs Baso <0.11 k/uL 0.06 Immature Gran % % 0.6 IMMATURE GRANS (ABS) <0.10 k/uL 0.04 NRBC /100 WBC 0.0 Absolute nRBC <0.01 k/uL <0.01 DTYPE Auto Iron 41 - 186 ug/dL 99 TIBC 232 - 386 ug/dL 355 Transferrin Saturation 15.0 - 57.0 % 27.9 Ferritin 14.7 - 205.1 ng/mL 49.9 ASSESSMENT/PLAN: 1. Iron deficiency anemia secondary to inadequate dietary iron intake (D50.8) 2. 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 Excessive and frequent menstruation with regular cycle (N92.0) Currently her hgb is 12.8, MVC 88, plt 280, iron 99, tibc 355, transferrin sat 27.9. Patient had received IV iron at [facility] - she completed her course on 04/13/25 B1, B6, B12, folate, copper, zinc and retic levels all normal IFOBT stools - was negative Fol (more content not included)... Normal [facility] CNOVon 08-01-2025 CNOV Office Visit (OBGYWM ) LANA ADAME ([id number]) 1985 F [place] Date Time Provider Department 08/01/25 11:30 AM WILBERTO MORALES OBGYWM During your visit today, we recorded the following information about you: Blood pressure Weight Height Last Period 124/76 77.6 kg 1.575 m 07/30/25 Wilberto Morales MD 08/01/2025 11:50 AM Signed Lana is a 39 year old who presents for an annual gynecologic exam with complaints, last 2 menses a little later than average.. Still get period: Yes Menses: monthly, getting heavier Bleeding amount bothersome: Yes Bleeding between periods: No Period symptoms: Acne; Breast tenderness; Cramps; Mood change Time with current partner: 19 years Number of lifetime partners: 2 Contraception frequency: Always HPV vaccine: No; HPV:negative Last pap smear: History of abnormal pap: No, all prior PAP smears have been normal Bothersome pelvic pain: No Last mammogram: never OB History Gravida2 Para2 Term2 Preterm0 AB0 Living2 SAB0 IAB0 Ectopic0 Multiple0 Live Births2 [facility]vationist History LMP: 07/30/2025 (Exact Date), Having periods Age at Menarche: 12 Age at First : Age at Menopause: Salvationist History Comments: Sexual Activity: Yes; Male Contraception: Vasectomy Menstrual Tracking History Flowsheet Row Office Visit from 08/01/2025 in OB/Gynecology Period Duration (Days) 7 Menstrual Flow Heavy PAST MEDICAL HISTORY Diagnosis Date Depression Hypothyroid Psychiatric disorder PAST SURGICAL HISTORY Procedure Laterality Date LAP SLEEVE GASTRECTOMY 12/22/2022 FAMILY HISTORY Problem Relation Age of Onset Hypertension Mother Hypertension Father SOCIAL HISTORY Social History Tobacco Use Smoking status: Never Smokeless tobacco: Never Vaping Use Vaping status: Never Used Substance Use Topics Alcohol use: Yes Comment: Social Drug use: Never REVIEW OF SYSTEMS Abdomen: No abdominal pain, nausea, vomiting, diarrhea, or constipation. No bloating, early satiety, indigestion, or increased flatulence. Bladder: No dysuria, gross hematuria, urinary frequency, urinary urgency, or incontinence. Breast: No breast lumps, nipple d/c, overlying skin changes, redness or skin retraction. Allergies and current medication updated:Yes SENSITIVE EXAM: The sensitive examination was discussed with the Patient or Patient's Authorized Cleaner Assistant. As applicable, any other physician, advance practice provider, medical student, or other health professional student that will be observing or involved in the sensitive examination for educational or training purposes was discussed with the Patient or Authorized Cleaner Assistant. The Patient or Authorized Cleaner Assistant has agreed to proceed with the sensitive examination. (Sensitive examination includes inspection and/or palpation of the breasts, pelvis, prostate and anorectal regions). EXAM: BP 124/76 Ht 5' 2" (1.58m) Wt 171 lb (77.6kg) LMP 07/30/2025 BMI 31.27 kg/(m2). GENERAL: pleasant, female in no apparent [...] external genitalia normal, normal Bartholin's glands, urethra, [place]'s glands, no vulvar lesions, no cervical lesions, good vaginal support, physiologic discharge present, normal appearing perineal body and perianal region BIMANUAL: uterus normal size, shape and consistency, no adnexal masses, and non-tender RECTOVAGINAL: deferred. NEURO: alert and oriented x3,exam grossly non-focal EXTREMITIES: normal ASSESSMENT/PLAN: 1) Health maintenance: Pap/HPV up to date. Mammogram ordered. 2) Contraception: vasectomy. Contraceptive options reviewed and information provided. 3) STD screening: Declined STI check. 4) Follow up one year or sooner as needed menorrhagia with h/o fe def anemia was anemic and got fe infusions earlier this year. check EMB and pelvic US and gave info on some options Wilberto Morales MD Allergies As of Date: 08/01/2025 Noted Allergy Reaction BEE STING 12/16/2019 10 - Anaphylaxis Date Reviewed: 08/01/2025 Reviewed by: Wilberto Morales MD - Fully Assessed Primary Visit Diagnosis:Encounter for gynecological examination (general) (routine) without abnormal findings [Z01.419] Other Visit Diagnoses:Encounter for screening mammogram for breast cancer [Z12.31] Menorrhagia with regular cycle [N92.0] Dysmenorrhea [N94.6] Order(s):MERY SCREENING W ESTELITA [[id number]] Order #: [id number] FUTURE PELVIC US WHI [[id number]] Ord (more content not included)... Normal [facility] CBC W Auto Differential pane l (Bld)on 07-25-2025 Basophils (Bld) [#/Vol] 0.06 10*3/uL Normal <0.11 [facility] Comment on above: Order Comment: Speci men Type: BLOOD SPECIMEN Ordering Facility: [facility] Address: [address] [place] [address] Performed By: #### 5 7021-8 #### [facility] CLIA [id number] [address] [place] [address] [place] Basophils/100 WBC (Bld) 0.8 % Normal [facility] Comment on above: Order Comment: Speci men Type: BLOOD SPECIMEN Ordering Facility: [facility] Address: [address] [place] [address] Performed By: #### 5 7021-8 #### [facility] CLIA [id number] [address] [place] [address] [place] Differential cell count method Nom (Bld) Auto Normal [facility] Comment on above: Order Comment: Speci men Type: BLOOD SPECIMEN Ordering Facility: [facility] Address: [address] [place] [address] Performed By: #### 5 7021-8 #### [facility] CLIA [id number] [address] [place] [address] [place] Eosinophils (Bld) [#/Vol] 0.11 10*3/uL Normal <0.46 [facility] Comment on above: Order Comment: Speci men Type: BLOOD SPECIMEN Ordering Facility: [facility] Address: [address] [place] [address] Performed By: #### 5 7021-8 #### [facility] CLIA [id number] [address] [place] [address] [place] Eosinophils/100 WBC (Bld) 1.5 % Normal [facility] Comment on above: Order Comment: Speci men Type: BLOOD SPECIMEN Ordering Facility: [facility] Address: [address] [place], [place] [address] Performed By: #### 5 7021-8 #### [facility] CLIA [id number] [address] [place] [address] [place] Erythrocyte distribution width (RBC) [Ratio] 12.2 % Normal 11.5-15.0 [facility] Comment on above: Order Comment: Speci men Type: BLOOD SPECIMEN Ordering Facility: [facility] Address: [address] [place] [address] Performed By: #### 5 7021-8 #### [facility] CLIA [id number] [address] [place] [address] [place] Hematocrit (Bld) [Volume fraction] 37.4 % Normal 36.0-46.0 [facility] Comment on above: Order Comment: Speci men Type: BLOOD SPECIMEN Ordering Facility: [facility] Address: [address] [place] [address] Performed By: #### 5 7021-8 #### [facility] CLIA [id number] [address] [place] [address] [place] Hemoglobin (Bld) [Mass/Vol] 12.8 g/dL Normal 11.5-15.5 [facility] Comment on above: Order Comment: Speci men Type: BLOOD SPECIMEN Ordering Facility: [facility] Address: [address] [place] [address] Performed By: #### 5 7021-8 #### [facility] CLIA [id number] [address] [place] [address] [place] Immature granulocytes (Bld) [#/Vol] 0.04 10*3/uL Normal <0.10 [facility] Comment on above: Order Comment: Speci men Type: BLOOD SPECIMEN Ordering Facility: [facility] Address: [address] [place] [address] Performed By: #### 5 7021-8 #### [facility] CLIA [id number] [address] [place] [address] [place] Immature granulocytes/100 WBC (Bld) 0.6 % Normal [facility] Comment on above: Order Comment: Speci men Type: BLOOD SPECIMEN Ordering Facility: [facility] Address: [address] [place] [address] Performed By: #### 5 7021-8 #### [facility] CLIA [id number] [address] [place] [address] [place] Lymphocytes (Bld) [#/Vol] 1.58 10*3/uL Normal 1.00-4.00 [facility] Comment on above: Order Comment: Speci men Type: BLOOD SPECIMEN Ordering Facility: [facility] Address: [address] [place] [address] Performed By: #### 5 7021-8 #### [facility] CLIA [id number] [address] [place] [address] [place] Lymphocytes/100 WBC (Bld) 22.1 % Normal [facility] Comment on above: Order Comment: Speci men Type: BLOOD SPECIMEN Ordering Facility: [facility] Address: [address] [place] [address] Performed By: #### 5 7021-8 #### [facility] CLIA [id number] [address] [place] [address] [place] MCH (RBC) [Entitic mass] 30.1 pg Normal 26.0-34.0 [facility] Comment on above: Order Comment: Speci men Type: BLOOD SPECIMEN Ordering Facility: [facility] Address: [address] [place] [address] Performed By: #### 5 7021-8 #### [facility] CLIA [id number] [address] [place] [address] [place] MCHC (RBC) [Mass/Vol] 34.2 g/dL Normal 30.5-36.0 [facility] Comment on above: Order Comment: Speci men Type: BLOOD SPECIMEN Ordering Facility: [facility] Address: [address] [place] [address] Performed By: #### 5 7021-8 #### [facility] CLIA [id number] [address] [place] [address] [place] MCV (RBC) [Entitic vol] 88.0 fL Normal 80.0-100.0 [facility] Comment on above: Order Comment: Speci men Type: BLOOD SPECIMEN Ordering Facility: [facility] Address: [address] [place] [address] Performed By: #### 5 7021-8 #### [facility] CLIA [id number] [address] [place] [address] [place] Monocytes (Bld) [#/Vol] 0.44 10*3/uL Normal <0.87 [facility] Comment on above: Order Comment: Speci men Type: BLOOD SPECIMEN Ordering Facility: [facility] Address: [address] [place] [address] Performed By: #### 5 7021-8 #### [facility] CLIA [id number] [address] [place] [address] [place] Monocytes/100 WBC (Bld) 6.2 % Normal [facility] Comment on above: Order Comment: Speci men Type: BLOOD SPECIMEN Ordering Facility: [facility] Address: [address] [place] [address] Performed By: #### 5 7021-8 #### [facility] CLIA [id number] [address] [place] [address] [place] Neutrophils (Bld) [#/Vol] 4.91 10*3/uL Normal 1.45-7.50 [facility] Comment on above: Order Comment: Speci men Type: BLOOD SPECIMEN Ordering Facility: [facility] Address: [address] [place] [address] Performed By: #### 5 7021-8 #### [facility] CLIA [id number] [address] [place] [address] [place] Neutrophils/100 WBC (Bld) 68.8 % Normal [facility] Comment on above: Order Comment: Speci men Type: BLOOD SPECIMEN Ordering Facility: [facility] Address: [address] [place] [address] Performed By: #### 5 7021-8 #### [facility] CLIA [id number] [address] [place] [address] [place] Nucleated RBC (Bld) [#/Vol] 10*3/uL Normal <0.01 [facility] Comment on above: Order Comment: Speci men Type: BLOOD SPECIMEN Ordering Facility: [facility] Address: [address] [place] [address] Performed By: #### 5 7021-8 #### [facility] CLIA [id number] [address] [place] [address] [place] Nucleated RBC/100 WBC (Bld) [Ratio] 0.0 /100 WBC Normal [facility] Comment on above: Order Comment: Speci men Type: BLOOD SPECIMEN Ordering Facility: [facility] Address: [address] [place] [address] Performed By: #### 5 7021-8 #### [facility] CLIA [id number] [address] [place] [address] [place] Platelet mean volume (Bld) [Entitic vol] 11.3 fL Normal 9.0-12.7 [facility] Comment on above: Order Comment: Speci men Type: BLOOD SPECIMEN Ordering Facility: [facility] Address: [address] [place] [address] Performed By: #### 5 7021-8 #### [facility] CLIA [id number] [address] [place] [address] [place] Platelets (Bld) [#/Vol] 280 10*3/uL Normal 150-400 [facility] Comment on above: Order Comment: Speci men Type: BLOOD SPECIMEN Ordering Facility: [facility] Address: [address] [place] [address] Performed By: #### 5 7021-8 #### [facility] CLIA [id number] [address] [place] [address] [place] RBC (Bld) [#/Vol] 4.25 10*6/uL Normal 3.90-5.20 [facility] Comment on above: Order Comment: Speci men Type: BLOOD SPECIMEN Ordering Facility: [facility] Address: [address] [place] [address] Performed By: #### 5 7021-8 #### [facility] CLIA [id number] [address] [place] [address] [place] WBC (Bld) [#/Vol] 7.14 10*3/uL Normal 3.70-11.00 [facility] Comment on above: Order Comment: Speci men Type: BLOOD SPECIMEN Ordering Facility: [facility] Address: [address] [place] [address] Performed By: #### 5 7021-8 #### [facility] CLIA [id number] [address] [place] [address] [place] Ferritin SerPl-mCncon 2024 Ferritin [Mass/Vol] 49.9 ng/mL Normal 14.7-205.1 [facility] Comment on above: Order Comment: Speci men Type: BLOOD SPECIMEN Ordering Facility: [facility] Address: [address] [place] [address] Performed By: #### 5 0190-8, 2276-4 #### [facility] CLIA [id number] [address] [place] [address] [place] Iron and Iron binding capaci ty panelon 07-25-2025 Iron [Mass/Vol] 99 ug/dL Normal 41-186 [facility] Comment on above: Order Comment: Speci men Type: BLOOD SPECIMEN Ordering Facility: [facility] Address: [address] [place] [address] Performed By: #### 5 0190-8, 2276-4 #### [facility] CLIA [id number] [address] [place] [address] [place] Iron binding capacity [Mass/Vol] 355 ug/dL Normal 232-386 [facility] Comment on above: Order Comment: Speci men Type: BLOOD SPECIMEN Ordering Facility: [facility] Address: [address] [place] [address] Performed By: #### 5 0190-8, 6-4 #### [facility] CLIA [id number] [address] [place] [address] [place] Iron/TIBC [Molar ratio] 27.9 % Normal 15.0-57.0 [facility] Comment on above: Order Comment: Speci men Type: BLOOD SPECIMEN Ordering Facility: [facility] Address: [address] [place] [address] Performed By: #### 5 0190-8, 6-4 #### [facility] CLIA [id number] [address] [place] [address] [place] Absolute lymphocyte countOrd ered By: Zaid Salazar on 05-24-2025 Lymphocytes Auto (Unsp spec) [#/Vol] 1.15 10*3/uL 0.83-4.51 [facility] Absolute neutrophil countOrd ered By: Zaid Salazar on 05-24-2025 Neutrophils (Bld) [#/Vol] 4.3 10*3/uL 2.0-7.7 [facility] Anion gap in Serum or Plasma Ordered By: Zaid Salazar on 05-24-2025 Anion gap [Moles/Vol] 10 mmol/L 5-15 [facility] Automated lymphocyte count a s percentage of total leukocytesOrdered By: Zaid Salazar on 05-24-2025 Lymphocytes/100 WBC Auto (Unsp spec) 19.2 % 19- [facility] BUN/creatinine ratioOrdered By: Zaid Salazar on 05-24-2025 Urea nitrogen/Creatinine [Mass ratio] 9.6 mg/mg Low 10-20 [facility] Basophil percentageOrdered B y: Zaid Salazar on 05-24-2025 Basophils/100 WBC (Bld) 1.0 % 0-1 [facility] Bilirubin, totalOrdered By: Zaid Salazar on 05-24-2025 Bilirubin [Mass/Vol] 0.30 mg/dL 0.00-1.30 [facility] CBC W/Diff, Automatedon 05-09 Absolute Lymph 1.15 X10 3/uL Normal 0.83-4.51 [facility] Comment on above: Order Comment: Order Date: 03/01/25 Order Info: [id number]- - CBCD Performed By: #### L 100.0100 #### [facility] [address] [place], [address] Absolute Neut 4.3 X10 3/uL Normal 2.0-7.7 [facility] Comment on above: Order Comment: Order Date: 03/01/25 Order Info: [id number]- - CBCD Performed By: #### L 100.0100 #### [facility] [address] [place], [address] Basophils/100 WBC (Bld) 1.0 % Normal 0-1 [facility] Comment on above: Order Comment: Order Date: 03/01/25 Order Info: 0184-1 - CBCD Performed By: #### L 100.0100 #### [facility] [address] [place], [address] Eosinophils/100 WBC (Bld) 2.7 % Normal 0-5 [facility] Comment on above: Order Comment: Order Date: 03/01/25 Order Info: 0184-1 - CBCD Performed By: #### L 100.0100 #### [facility] [address] [place], [address] Erythrocyte distribution width (RBC) [Ratio] 13.5 % Normal 11.6-14.6 [facility] Comment on above: Order Comment: Order Date: 03/01/25 Order Info: 0184-1 - CBCD Performed By: #### L 100.0100 #### [facility] [address] [place], [address] Hematocrit (Bld) [Volume fraction] 39.2 % Normal 37-47 [facility] Comment on above: Order Comment: Order Date: 03/01/25 Order Info: 0184- - CBCD Performed By: #### L 100.0100 #### [facility] [address] [place], [address] Hemoglobin (Bld) [Mass/Vol] 12.9 g/dL Normal 12.0-15.0 [facility] Comment on above: Order Comment: Order Date: 03/01/25 Order Info: 0184- - CBCD Performed By: #### L 100.0100 #### [facility] [address] [place], [address] IG% 0.500 Normal 0.0-0.9 [facility] Comment on above: Order Comment: Order Date: 03/01/25 Order Info: 0184-1 - CBCD Result Comment: IG% - Immature Granulocytes (promyelocytes, myelocytes and metamyelocytes) > 1% indicates that a LEFT SHIFT is Present. Performed By: #### L 100.0100 #### [facility] [address] [place], [address] Lymphocytes/100 WBC (Bld) 19.2 % Normal 19-41 [facility] Comment on above: Order Comment: Order Date: 03/01/25 Order Info: 0184-1 - CBCD Performed By: #### L 100.0100 #### [facility] [address] [place], [address] MCH (RBC) [Entitic mass] 29.0 pg Normal 27.0-32.0 [facility] Comment on above: Order Comment: Order Date: 03/01/25 Order Info: 0184-1 - CBCD Performed By: #### L 100.0100 #### [facility] [address] [place], [address] MCHC (RBC) [Mass/Vol] 32.9 g/dL Normal 32-36 [facility] Comment on above: Order Comment: Order Date: 03/01/25 Order Info: 0184-1 - CBCD Performed By: #### L 100.0100 #### [facility] [address] [place], [address] MCV (RBC) [Entitic vol] 88.1 fL Normal 81-99 [facility] Comment on above: Order Comment: Order Date: 03/01/25 Order Info: 0184-1 - CBCD Performed By: #### L 100.0100 #### [facility] [address] [place], [address] Monocytes/100 WBC (Bld) 5.8 % Normal 0-10 [facility] Comment on above: Order Comment: Order Date: 03/01/25 Order Info: 0184-1 - CBCD Performed By: #### L 100.0100 #### [facility] [address] [place], [address] Neutrophils/100 WBC (Bld) 70.8 % High 47-70 [facility] Comment on above: Order Comment: Order Date: 03/01/25 Order Info: 0184-1 - CBCD Performed By: #### L 100.0100 #### [facility] [address] [place], [address] Nucleated RBC (Bld) [#/Vol] 0 10*3/uL Normal 0-5 [facility] Comment on above: Order Comment: Order Date: 03/01/25 Order Info: 0184-1 - CBCD Performed By: #### L 100.0100 #### [facility] [address] [place], [address] Platelet mean volume (Bld) [Entitic vol] 11.6 fL Normal 6.2-12.0 [facility] Comment on above: Order Comment: Order Date: 03/01/25 Order Info: 0184-1 - CBCD Performed By: #### L 100.0100 #### [facility] [address] [place], [address] Platelets (Bld) [#/Vol] 277 10*3/uL Normal 150-450 [facility] Comment on above: Order Comment: Order Date: 03/01/25 Order Info: 018- - CBCD Performed By: #### L 100.0100 #### [facility] [address] [place], [address] RBC (Bld) [#/Vol] 4.45 10*6/uL Normal 4.2-5.4 [facility] Comment on above: Order Comment: Order Date: 03/01/25 Order Info: 0184- - CBCD Performed By: #### L 100.0100 #### [facility] [address] [place], [address] RDW SD 43.7 fl Normal 35.1-43.9 [facility] Comment on above: Order Comment: Order Date: 03/01/25 Order Info: 0184-1 - CBCD Performed By: #### L 100.0100 #### [facility] [address] [place], [address] WBC (Bld) [#/Vol] 6.0 10*3/uL Normal 4.4-11.0 [facility] Comment on above: Order Comment: Order Date: 03/01/25 Order Info: 0184-1 - CBCD Performed By: #### L 100.0100 #### [facility] [address] [place], [address] CRPon 05-24-2025 C-REACTIVE PROT < 3.00 Normal 0.0-3.0 [facility] Comment on above: Order Comment: PENNY Lewis SEND ALL RESULTS TO DR. MOELLER ALSO. Performed By: #### L 100.0100, L503.6030, L503.6550 #### [facility] [address] [place], [address] Carbon dioxide, total [Moles /volume] in Central venous bloodOrdered By: Zaid Salazar on 05-24-2025 CO2 [Moles/Vol] 26.3 mmol/L 21.0-32.0 [facility] Chloride assayOrdered By: Manuela Salazar on 05-24-2025 Chloride [Moles/Vol] 103 mmol/L 98-108 [facility] Comprehensive Metabolic Prof ilon 05-24-2025 Albumin [Mass/Vol] 4.3 g/dL Normal 3.5-5.0 [facility] Comment on above: Order Comment: Order Date: 03/01/25 Order Info: 0184-1 - CBCD Performed By: #### L 100.0100 #### [facility] [address] [place], [address] Albumin/Globulin [Mass ratio] 1.7 {ratio} Normal 0.9-2.4 [facility] Comment on above: Order Comment: Order Date: 03/01/25 Order Info: 0184-1 - CBCD Performed By: #### L 100.0100 #### [facility] [address] [place], [address] ALK PHOS 65 U/L Normal 35-104 [facility] Comment on above: Order Comment: Order Date: 03/01/25 Order Info: 0184-1 - CBCD Performed By: #### L 100.0100 #### [facility] [address] [place], [address] ALT [Catalytic activity/Vol] 13 U/L Normal <=34 [facility] Comment on above: Order Comment: Order Date: 03/01/25 Order Info: 018-1 - CBCD Performed By: #### L 100.0100 #### [facility] [address] [place], [address] AST [Catalytic activity/Vol] 23 U/L Normal <=31 [facility] Comment on above: Order Comment: Order Date: 03/01/25 Order Info: 0184-1 - CBCD Performed By: #### L 100.0100 #### [facility] [address] [place], [address] Bilirubin [Mass/Vol] 0.30 mg/dL Normal 0.00-1.30 [facility] Comment on above: Order Comment: Order Date: 03/01/25 Order Info: 018- - CBCD Performed By: #### L 100.0100 #### [facility] [address] [place], [address] BUN/CRE 9.6 RATIO Low 10-20 [facility] Comment on above: Order Comment: Order Date: 03/01/25 Order Info: 018- - CBCD Performed By: #### L 100.0100 #### [facility] [address] [place], [address] Calcium [Mass/Vol] 9.2 mg/dL Normal 7.6-11.0 [facility] Comment on above: Order Comment: Order Date: 03/01/25 Order Info: 018-1 - CBCD Performed By: #### L 100.0100 #### [facility] [address] [place], [address] Chloride [Moles/Vol] 103 mmol/L Normal 98-108 [facility] Comment on above: Order Comment: Order Date: 03/01/25 Order Info: 0184-1 - CBCD Performed By: #### L 100.0100 #### [facility] [address] [place], [address] CO2 [Moles/Vol] 26.3 mmol/L Normal 21.0-32.0 [facility] Comment on above: Order Comment: Order Date: 03/01/25 Order Info: 0184-1 - CBCD Performed By: #### L 100.0100 #### [facility] [address] [place], [address] Creatinine [Mass/Vol] 0.90 mg/dL Normal 0.70-1.20 [facility] Comment on above: Order Comment: Order Date: 03/01/25 Order Info: 018-1 - CBCD Performed By: #### L 100.0100 #### [facility] [address] [place], [address] GAP 10 Normal 5-15 [facility] Comment on above: Order Comment: Order Date: 03/01/25 Order Info: 018- - CBCD Performed By: #### L 100.0100 #### [facility] [address] [place], [address] GFR/1.73 sq M.predicted among non-blacks MDRD (S/P/Bld) [Vol rate/Area] 83 mL/min/{1.73_m2} Normal >60 [facility] Comment on above: Order Comment: Order Date: 03/01/25 Order Info: 0184- - CBCD Result Comment: mL/m in/1.73m2 CKD-EPI Creatinine Equation (2020) Performed By: #### L 100.0100 #### [facility] [address] [place], [address] Globulin (S) [Mass/Vol] 2.5 g/dL Normal 2.2-4.2 [facility] Comment on above: Order Comment: Order Date: 03/01/25 Order Info: 0184-1 - CBCD Performed By: #### L 100.0100 #### [facility] [address] [place], [address] Glucose [Mass/Vol] 85 mg/dL Normal 70-99 [facility] Comment on above: Order Comment: Order Date: 03/01/25 Order Info: 0184-1 - CBCD Performed By: #### L 100.0100 #### [facility] [address] [place], [address] Potassium [Moles/Vol] 4.1 mmol/L Normal 3.3-5.1 [facility] Comment on above: Order Comment: Order Date: 03/01/25 Order Info: 0184-1 - CBCD Performed By: #### L 100.0100 #### [facility] [address] [place], [address] Sodium [Moles/Vol] 139 mmol/L Normal 133-145 [facility] Comment on above: Order Comment: Order Date: 03/01/25 Order Info: 0184-1 - CBCD Performed By: #### L 100.0100 #### [facility] [address] [place], [address] T PROT 6.9 g/dL Normal 5.9-8.4 [facility] Comment on above: Order Comment: Order Date: 03/01/25 Order Info: 0184-1 - CBCD Performed By: #### L 100.0100 #### [facility] [address] [place], [address] Urea nitrogen [Mass/Vol] 9 mg/dL Normal 4-19 [facility] Comment on above: Order Comment: Order Date: 03/01/25 Order Info: 0184-1 - CBCD Performed By: #### L 100.0100 #### [facility] [address] [place], [address] Eosinophil percentageOrdered By: Zaid Salazar on 05-24-2025 Eosinophils/100 WBC (Bld) 2.7 % 0-5 [facility] Erythrocyte Sed Rateon 05-24 SED RATE 1 mm/hr Normal 0-30 [facility] Comment on above: Order Comment: Order Date: 03/01/25 Order Info: 0184-1 - CBCD Performed By: #### L 100.0100 #### [facility] [address] [place], [place], [address] Erythrocyte distribution wid th ratioOrdered By: Zaid Salazar on 05-24-2025 Erythrocyte distribution width (RBC) [Ratio] 13.5 % 11.6-14.6 [facility] Erythrocyte distribution wid th standard deviationOrdered By: Zaid Salazar on 05-24-2025 Erythrocyte distribution width (RBC) [Ratio] 43.7 fl 35.1-43.9 [facility] Erythrocyte sedimentation ra teOrdered By: Zaid Salazar on 05-24-2025 ESR (Bld) [Velocity] 1 mm/h 0-30 [facility] Ferritinon 05-24-2025 Ferritin [Mass/Vol] 100 ng/mL Normal 22-378 [facility] Comment on above: Order Comment: PENNY Lewis SEND ALL RESULTS TO DR. MOELLER ALSO. Performed By: #### L 100.0100, L503.6030, L503.6550 #### [facility] [address] [place], [address] Free T3on 05-24-2025 Free T3 [Mass/Vol] 2.8 pg/mL Normal 2.18-3.98 [facility] Comment on above: Order Comment: Order Date: 03/01/25 Order Info: 0184-1 - CBCD Performed By: #### L 100.0100 #### [facility] [address] [place], [address] Free A1Urqrmzj By: Zaid escamilla on 05-24-2025 Free T3 [Mass/Vol] 2.8 pg/mL 2.18-3.98 [facility] Glomerular filtration rate ( GFR) estimation/1.73 sq m using serum, plasma, or whole bOrdered By: Ziad Salazar on 05-24-2025 GFR/1.73 sq M.predicted among non-blacks MDRD (S/P/Bld) [Vol rate/Area] 83 mL/min/{1.73_m2} >60 [facility] Comment on above: mL/min/1.73m2 CKD-EP I Creatinine Equation (2020) Hematocrit Auto (Bld) [Volum e fraction]Ordered By: Zaid Salazar on 05-24-2025 Hematocrit (Bld) [Volume fraction] 39.2 % 37-47 [facility] Hemoglobin measurementOrdere d By: Zaid Salazar on 05-24-2025 Hemoglobin (Bld) [Mass/Vol] 12.9 g/dL 12.0-15.0 [facility] Immature granulocytes/100 WB C Auto (Bld)Ordered By: Zaid Salazar on 05-24-2025 Immature granulocytes/100 WBC (Bld) 0.500 % 0.0-0.9 [facility] Comment on above: IG% - Immature Granu locytes (promyelocytes, myelocytes and metamyelocytes) > 1% indicates that a LEFT SHIFT is Present. Iron measurement (mass/mass) Ordered By: Zaid Salazar on 05-24-2025 Iron (Unsp spec) [Mass/Mass] 108 ug/dL 50-170 [facility] Iron+Iron Binding Capacityon 05-24-2025 Iron [Mass/Vol] 108 ug/dL Normal 50-170 [facility] Comment on above: Order Comment: PENNY Lewis SEND ALL RESULTS TO DR. MOELLER ALSO. Performed By: #### L 100.0100, L503.6030, L503.6550 #### [facility] [address] [place], [address] UIBC 206 ug/dL Low 228-428 [facility] Comment on above: Order Comment: PENNY Lewis SEND ALL RESULTS TO DR. MOELLER ALSO. Performed By: #### L 100.0100, L503.6030, L503.6550 #### [facility] [address] [place], [address] LDHon 05-24-2025 LDH 150 U/L Normal 84-246 [facility] Comment on above: Order Comment: PENNY Lewis SEND ALL RESULTS TO DR. MOELLER ALSO.1 Performed By: #### L 100.0100, L503.6030, L503.6550 #### [facility] [address] [place], [place], [address] Laboratory - Chemistry and C hemistry - challengeOrdered By: Zaid Salazar on 05-24-2025 AST [Catalytic activity/Vol] 23 U/L <32 [facility] Lactate dehydrogenase (LDH) measurementOrdered By: Zaid Salazar on 05-24-2025 LDH [Catalytic activity/Vol] 150 U/L 84-246 [facility] MCV (mean corpuscular volume ) determinationOrdered By: Zaid Salazar on 05-24-2025 MCV (RBC) [Entitic vol] 88.1 fL 81-99 [facility] Magnesiumon 05-24-2025 Magnesium [Mass/Vol] 1.8 mg/dL Normal 1.5-2.2 [facility] Comment on above: Order Comment: PENNY Lewis SEND ALL RESULTS TO DR. MOELLER ALSO. Performed By: #### L 100.0100, L503.6030, L503.6550 #### [facility] [address] [place], [address] Magnesium measurement (mass/ volume)Ordered By: Zaid Salazar on 05-24-2025 Magnesium (Unsp spec) [Mass/Vol] 1.8 mg/dL 1.5-2.2 [facility] Mean corpuscular hemoglobin (MCH) determinationOrdered By: Zaid Salazar on 05-24-2025 MCH (RBC) [Entitic mass] 29.0 pg 27.0-32.0 [facility] Mean corpuscular hemoglobin concentration (MCHC) determinationOrdered By: Zaid Salazar on 05-24-2025 MCHC (RBC) [Mass/Vol] 32.9 g/dL 32-36 [facility] Mean platelet volume determi nationOrdered By: Zaid Salazar on 05-24-2025 Platelet mean volume (Bld) [Entitic vol] 11.6 fL 6.2-12.0 [facility] Monocyte percentageOrdered B y: Zaid Salazar on 05-24-2025 Monocytes/100 WBC (Bld) 5.8 % 0-10 [facility] Neutrophil percentageOrdered By: Zaid Salazar on 05-24-2025 Neutrophils/100 WBC (Bld) 70.8 % High 47-70 [facility] No Panel InformationOrdered By: Zaid Salazar on 05-24-2025 Unsaturated Iron Binding Capacity 206 ug/dL Low 228-428 [facility] Nucleated red blood cell per centageOrdered By: Zaid Salazar on 05-24-2025 Nucleated RBC/100 WBC (Bld) [Ratio] 0 % 0-5 [facility] Oncology Visit Reporton 05-09 Oncology Visit Report [facility] [place] [facility] [address] [place] [address] OFFICE VISIT Date of Service: 05/24/25 1528 MR#: [id number] Acct: [id number] Name: LANA ADAME Rep #: [id number] : 1985 From: Zaid Salazar MD Age/Sex: 39/F Location[place] [facility] [place] Status: Signed HPI Subjective Date of Service 05/24/25 Chief Complaint F/u for Iron deficiency anemia. History of Present Illness 39y.o.woman had Bariatric surgery in 2022. She was found to have Iron deficiency anemia, was started on Oral Iron. There was no significant improvement in HGB so referred for IV Iron. Got IV Iron infusion on 03/30/2025, 04/06/2025, 04/10/2025. Come for follow up. Feels well. [facility] Medical History GERD (gastroesophageal reflux disease) Carpal tunnel syndrome Insomnia KARINE (obstructive sleep apnea) Former smoker Depression Anxiety Alcohol use Anemia Back pain Migraine headache CPAP (continuous positive airway pressure) dependence Shortness of breath on exertion History of echocardiogram Seizures Cardiology follow-up encounter Polycystic ovary Hormone deficiency Rectal discomfort Constipation Hepatic steatosis Obesity, morbid, BMI 40.0-49.9 Hypothyroidism Normal spontaneous vaginal delivery Surgical History History of liver biopsy Hx of gastric bypass History of colonoscopy H/O hernia repair H/O gastric sleeve Family History Father Hypertension Obesity Mother Hypertension Obesity Grandfather Colon cancer Uncle Colon cancer Social History household members: spouse Smoking Status: Former smoker how long ago did patient quit smoking: quit 20 years ago alcohol intake: current alcohol intake frequency: holidays/special occasions only substance use type: does not use what type of physical activity do you participate in: walking frequency: 1-2 times per week additional social history: pt denies vaping, denies edibles, denies marijuana uses aspirin and ibuprofen as needed Intake Vital Signs 03/15/25 16:04 04/13/25 11:06 05/24/25 15:31 Height 5 ft 2 in 5 ft 2 in 5 ft 2 in Weight: 77.734 kg BMI 31.3 BP 130/88 H Blood Pressure Location Lt brachial Position Sitting Respiration 18 Pulse 70 Pulse Source Monitor Temp 98.3 F Temperature Source Temporal Artery Pulse Oximetry (%) 99 Oxygen Delivery Method room air Intake Accompanied by: Self Is patient in pain?: No Allergies bee venom protein (honey bee) Adverse Reaction (Severe, Verified 05/24/25 15:39) Anaphylaxis Medications ???Medication ???Instructions ???Recorded ???Confirmed ???Type bupropion HCl 300 mg 24 hr tablet, 300 mg PO QHS 07/30/22 05/24/25 History extended release lurasidone 80 mg tablet (Latuda) 20 mg PO QHS 12/06/24 05/24/25 His tory clonazepam 0.5 mg tablet 0.5 mg PO BID 12/07/24 05/24/25 Hi story cholecalciferol (vitamin D3) 50 4,000 unit PO DAILY 02/17/2505/24 History mcg (2,000 unit) capsule ferrous sulfate 325 mg (65 mg 325 mg PO QDAY 02/17/25 05/24/25 H istory iron) tablet (FeroSul) levothyroxine 100 mcg tablet 100 mcg PO DAILY 02/17/25 05/24/25 History magnesium oxide 500 mg capsule 500 mg PO DAILY 02/17/25 05/24/25 History multivitamin 1 tab PO DAILY 02/17/25 05/24/25 H istory epinephrine 0.3 mg/0.3 mL 0.3 mg IM ONCE 03/09/25 05/24/25 H istory injection, auto-injector (EpiPen) bupropion HCl 150 mg 24 hr tablet, 150 mg PO QAM 03/20/25 05/24/25 History extended release Central Venous Access Central Venous Access: No Laboratory Tests 02/28/25 03/07/25 05/24/25 15:59 07:32 07:46 WBC 6.1 6.0 Hgb 10.9 L 12.9 Hct 35.5 L 39.2 Plt Count 273 277 Absolute Neuts (auto) 3.7 Sodium 139 Potassium 4.1 Chloride 103 Carbon Dioxide 26.3 BUN 9 Creatinine 0.90 Glucose 85 Calcium 9.2 Phosphorus 2.6 L Iron 28 L Magnesium 1.8 Iron Saturation 8.0 L 34.4 Ferritin 28 100 Total Bilirubin 0.30 AST 23 ALT 13 Alkaline Phosphatase 65 Lactate Dehydrogenase 150 C-React Prot Ext Range < 3.00 Total Protein 6.9 Albumin 4.3 Globulin 2.5 Exam Physical Exam Const alert, oriented x3 and no apparent distress Coding Level of Care Code Off vis,est,level 3 Exam Problem Focused Diagnoses Iron deficiency anemia following bariatric surgery K95.89; D50.8 Other iron deficiency anemia D50.8 Anemia type: iron deficiency Iron deficiency anemia type: other iron deficiency Iron deficiency anemia refractory to iron therapy D50.8 Assessment and Plan Assessment a (more content not included)... Normal [facility] Phosphoruson 05-24-2025 Phosphate [Mass/Vol] 2.6 mg/dL Low 2.7-4.5 [facility] Comment on above: Order Comment: PENNY Lewis SEND ALL RESULTS TO DR. MOELLER ALSO. Performed By: #### L 100.0100, L503.6030, L503.6550 #### [facility] [address] [place], [address] Platelet countOrdered By: Manuela Salazar on 05-24-2025 Platelets (Bld) [#/Vol] 277 10*3/uL 150-450 [facility] Potassium measurement (mass/ volume)Ordered By: Zaid Salazar on 05-24-2025 Potassium (Unsp spec) [Mass/Vol] 4.1 mmol/L 3.3-5.1 [facility] RBC Auto (Bld) [#/Vol]Ordere d By: Zaid Salazar on 05-24-2025 RBC (Bld) [#/Vol] 4.45 10*6/uL 4.2-5.4 [facility] Retic Panelon 05-24-2025 IM RET FRACTION 3.30 Normal 3.00-15.90 [facility] Comment on above: Order Comment: Order Date: 03/01/25 Order Info: 0184-1 - CBCD Performed By: #### L 100.0100 #### [facility] [address] [place], [address] RET-HE 32.3 pg Normal 30-35 [facility] Comment on above: Order Comment: Order Date: 03/01/25 Order Info: 0184-1 - CBCD Performed By: #### L 100.0100 #### [facility] [address] [place], [address] Retic Count 1.01 Normal 0.5-1.5 [facility] Comment on above: Order Comment: Order Date: 03/01/25 Order Info: 0184-1 - CBCD Performed By: #### L 100.0100 #### [facility] [address] [place], [address] Reticulocyte hemoglobin equi valent (RET-He) measurementOrdered By: Zaid Salazar on 05-24-2025 Hemoglobin (Reticulocytes) [Entitic mass] 32.3 pg 30-35 [facility] Reticulocytes Auto (Bld) [#/ Vol]Ordered By: Zaid Salazar on 05-24-2025 Reticulocytes/100 RBC (Bld) 1.01 % 0.5-1.5 [facility] Serum creatinine measurement (mass/volume)Ordered By: Zaid Salazar on 05-24-2025 Creatinine [Mass/Vol] 0.90 mg/dL 0.70-1.20 [facility] Serum globulin measurementOr dered By: Zaid Salazar on 05-24-2025 Globulin (S) [Mass/Vol] 2.5 g/dL 2.2-4.2 [facility] Serum glucose measurement (m ass/volume)Ordered By: Zaid Salazar on 05-24-2025 Glucose [Mass/Vol] 85 mg/dL 70-99 [facility] Serum or plasma C reactive p rotein measurement (mass/volume)Ordered By: Zaid Salazar on 05-24-2025 CRP [Mass/Vol] mg/L 0.0-3.0 [facility] Serum or plasma alanine dao otransferase (ALT) measurementOrdered By: Zaid Salazar on 05-24-2025 ALT [Catalytic activity/Vol] 13 U/L <35 [facility] Serum or plasma albumin aolnso urement (mass/volume)Ordered By: Zaid Salazar on 05-24-2025 Albumin [Mass/Vol] 4.3 g/dL 3.5-5.0 [facility] Serum or plasma albumin/glob ulin mass ratioOrdered By: Zaid Salazar on 05-24-2025 Albumin/Globulin [Mass ratio] 1.7 {ratio} 0.9-2.4 [facility] Serum or plasma alkaline ann sphatase measurementOrdered By: Zaid Salazar on 05-24-2025 ALP [Catalytic activity/Vol] 65 U/L 35-104 [facility] Serum or plasma calcium alonso urement (mass/volume)Ordered By: Zaid Salazar on 05-24-2025 Calcium [Mass/Vol] 9.2 mg/dL 7.6-11.0 [facility] Serum or plasma ferritin venus surement (mass/volume)Ordered By: Zaid Salazar on 05-24-2025 Ferritin [Mass/Vol] 100 ng/mL 22-378 [facility] Serum or plasma iron saturat ion measurement (mass fraction)Ordered By: Zaid Salazar on 05-24-2025 Iron saturation [Mass fraction] 34.4 % 13-59 [facility] Comment on above: Previous reported re sult: 34.0 %Edited by: CHICA on 05/24/25:1208 AMENDED REPORT 05/24/25 1208 IRON SATURATION previously reported as: 34.0 % Serum or plasma urea nitroge n measurement (mass/volume)Ordered By: Zaid Salazar on 05-24-2025 Urea nitrogen [Mass/Vol] 9 mg/dL 4-19 [facility] Sodium levelOrdered By: Israel Salazar on 05-24-2025 Sodium [Moles/Vol] 139 mmol/L 133-145 [facility] T4 Free Directon 05-24-2025 T4 FREE DIRECT 1.70 ng/dL High 0.76-1.46 [facility] Comment on above: Order Comment: PENNY Lewis SEND ALL RESULTS TO DR. MOELLER ALSO. Performed By: #### L 100.0100, L503.6030, L503.6550 #### [facility] [address] [place], [place], [id number] T4 freeOrdered By: Zaid escamilla on 05-24-2025 Free T4 [Mass/Vol] 1.70 ng/dL High 0.76-1.46 [facility] TSH DL <= 0.005 mIU/L QnOrde red By: Zaid Salazar on 05-24-2025 TSH Qn 1.320 uIU/mL 0.300-4.20 0 [facility] Thyroid Stim Hormone (TSH)on 05-24-2025 TSH 1.320 uIU/mL Normal 0.300-4.20 0 [facility] Comment on above: Order Comment: Order Date: 03/01/25 Order Info: 0184-1 - CBCD Performed By: #### L 100.0100 #### [facility] [address] [place], [place], [id number] Total proteinOrdered By: Pedro Salazar on 05-24-2025 Protein [Mass/Vol] 6.9 g/dL 5.9-8.4 [facility] Vitamin B12on 05-24-2025 Cobalamin (Vitamin B12) [Mass/Vol] 557 pg/mL Normal 180-914 [facility] Comment on above: Order Comment: PENNY Lewis SEND ALL RESULTS TO DR. MOELLER ALSO. Performed By: #### L 100.0100, L503.6030, L503.6550 #### [facility] [address] [place], [address] Vitamin B12 ser/plasOrdered By: Zaid Salazar on 05-24-2025 Cobalamin (Vitamin B12) [Mass/Vol] 557 pg/mL 180-914 [facility] White blood cell (WBC) count Ordered By: Zaid Salazar on 05-24-2025 WBC (Bld) [#/Vol] 6.0 10*3/uL 4.4-11.0 [facility] Hemoccult Stl Ql IAon 2024 Lower GI hemoglobin IA Ql (Stl) Negative Normal Negative [facility] Comment on above: Order Comment: Speci men Type: STOOL SPECIMEN Ordering Facility: [facility] Address: [address] [place] [address] Performed By: #### 2 9771-3 #### [facility] CLIA [id number] [address] [place] [address] [place] VITAMIN B6/PYRIDOXINon 04-05 VITAMIN B6 40.8 nmol/L Normal 20.0-125.0 [facility] Comment on above: Order Comment: Speci men Type: BLOOD SPECIMEN Ordering Facility: [facility] Address: [address] [place] [address] Result Comment: INTE RPRETIVE INFORMATION: Vitamin B6 (Pyridoxal 5-Phosphate) Pyridoxal 5'-phosphate measured in a specimen collected following an 8-hour or overnight fast accurately indicates vitamin B6 nutritional status. Non-fasting specimen concentration reflects recent vitamin intake. This test was developed and its performance characteristics determined by [facility]. It has not been cleared or approved by the [place] Food and Drug Administration. This test was performed in a CLIA certified laboratory and is intended for clinical purposes. Performed By: [facility] [address] [place] [address] Mapping Pilot: Hemanth White MD, PhD CLIA Number: [id number] Performed By: #### V ITB6 #### [facility] CLIA [id number] [address] [place] [address] CBC W Auto Differential pane l (Bld)on 04-04-2025 Basophils (Bld) [#/Vol] 0.09 10*3/uL [facility] Basophils/100 WBC (Bld) 1.1 % [facility] Differential cell count method Nom (Bld) Auto [facility] Eosinophils (Bld) [#/Vol] 0.11 10*3/uL [facility] Eosinophils/100 WBC (Bld) 1.4 % [facility] Erythrocyte distribution width (RBC) [Ratio] 15.4 % High 11.5 - 15.0 % [facility] Hematocrit (Bld) [Volume fraction] 36.3 % 36.0 - 46.0 % [facility] Hemoglobin (Bld) [Mass/Vol] 11.4 g/dL Low 11.5 - 15.5 g/dL [facility] Immature granulocytes (Bld) [#/Vol] 0.03 10*3/uL [facility] Immature granulocytes/100 WBC (Bld) 0.4 % [facility] Interpretation and review of laboratory results Abnormal [facility] Lymphocytes (Bld) [#/Vol] 1.67 10*3/uL [facility] Lymphocytes/100 WBC (Bld) 20.7 % [facility] MCH (RBC) [Entitic mass] 27.1 pg 26.0 - 34.0 pg [facility] MCHC (RBC) [Mass/Vol] 31.4 g/dL 30.5 - 36.0 g/dL [facility] MCV (RBC) [Entitic vol] 86.4 fL 80.0 - 100.0 fL [facility] Monocytes (Bld) [#/Vol] 0.47 10*3/uL [facility] Monocytes/100 WBC (Bld) 5.8 % [facility] Neutrophils (Bld) [#/Vol] 5.68 10*3/uL [facility] Neutrophils/100 WBC (Bld) 70.6 % [facility] Nucleated RBC (Bld) [#/Vol] [facility] Nucleated RBC/100 WBC (Bld) [Ratio] 0 % /100 WBC [facility] Platelet mean volume (Bld) [Entitic vol] 12.1 fL 9.0 - 12.7 fL [facility] Platelets (Bld) [#/Vol] 287 10*3/uL [facility] RBC (Bld) [#/Vol] 4.2 10*6/uL 3.90 - 5.20 m/uL [facility] WBC (Bld) [#/Vol] 8.05 10*3/uL [facility] Basophils (Bld) [#/Vol] 0.09 10*3/uL Normal <0.11 [facility] Comment on above: Order Comment: Speci men Type: BLOOD SPECIMEN Ordering Facility: [facility] Address: [address] [place] [address] Performed By: #### 5 7021-8, 59534-6 #### [facility] CLIA [id number] [address] [place] [address] [place] Basophils/100 WBC (Bld) 1.1 % Normal [facility] Comment on above: Order Comment: Speci men Type: BLOOD SPECIMEN Ordering Facility: [facility] Address: [address] [place] [address] Performed By: #### 5 7021-8, 19290-8 #### [facility] CLIA [id number] [address] [place] Differential cell count method Nom (Bld) Auto Normal [facility] Comment on above: Order Comment: Speci men Type: BLOOD SPECIMEN Ordering Facility: [facility] Address: [address] [place] [address] Performed By: #### 5 7021-8, 13254-7 #### [facility] CLIA [id number] [address] [place] [address] [place] Eosinophils (Bld) [#/Vol] 0.11 10*3/uL Normal <0.46 [facility] Comment on above: Order Comment: Speci men Type: BLOOD SPECIMEN Ordering Facility: [facility] Address: [address] [place] [address] Performed By: #### 5 7021-8, 42785-3 #### [facility] CLIA [id number] [address] [place] Eosinophils/100 WBC (Bld) 1.4 % Normal [facility] Comment on above: Order Comment: Speci men Type: BLOOD SPECIMEN Ordering Facility: [facility] Address: [address] [place] [address] Performed By: #### 5 7021-8, 29445-9 #### [facility] CLIA [id number] [address] [place] Erythrocyte distribution width (RBC) [Ratio] 15.4 % High 11.5-15.0 [facility] Comment on above: Order Comment: Speci men Type: BLOOD SPECIMEN Ordering Facility: [facility] Address: [address] [place] [address] Performed By: #### 5 7021-8, 38544-8 #### [facility] CLIA [id number] [address] [place] Hematocrit (Bld) [Volume fraction] 36.3 % Normal 36.0-46.0 [facility] Comment on above: Order Comment: Speci men Type: BLOOD SPECIMEN Ordering Facility: [facility] Address: [address] [place] [address] Performed By: #### 5 7021-8, 54881-7 #### [facility] CLIA [id number] [address] [place] Hemoglobin (Bld) [Mass/Vol] 11.4 g/dL Low 11.5-15.5 [facility] Comment on above: Order Comment: Speci men Type: BLOOD SPECIMEN Ordering Facility: [facility] Address: [address] [place] [address] Performed By: #### 5 7021-8, 63347-6 #### [facility] CLIA [id number] [address] [place] Immature granulocytes (Bld) [#/Vol] 0.03 10*3/uL Normal <0.10 [facility] Comment on above: Order Comment: Speci men Type: BLOOD SPECIMEN Ordering Facility: [facility] Address: [address] [place] [address] Performed By: #### 5 7021-8, 72069-9 #### [facility] CLIA [id number] [address] [place] Immature granulocytes/100 WBC (Bld) 0.4 % Normal [facility] Comment on above: Order Comment: Speci men Type: BLOOD SPECIMEN Ordering Facility: [facility] Address: [address] [place] [address] Performed By: #### 5 7021-8, 06016-3 #### [facility] CLIA [id number] [address] OF [facility] Lymphocytes (Bld) [#/Vol] 1.67 10*3/uL Normal 1.00-4.00 [facility] Comment on above: Order Comment: Speci men Type: BLOOD SPECIMEN Ordering Facility: [facility] Address: [address] [place] [address] Performed By: #### 5 7021-8, 49130-2 #### [facility] CLIA [id number] [address] Lymphocytes/100 WBC (Bld) 20.7 % Normal [facility] Comment on above: Order Comment: Speci men Type: BLOOD SPECIMEN Ordering Facility: [facility] Address: [address] [place] [address] Performed By: #### 5 7021-8, 58150-7 #### [facility] CLIA [id number] [address] STATES OF [facility] MCH (RBC) [Entitic mass] 27.1 pg Normal 26.0-34.0 [facility] Comment on above: Order Comment: Speci men Type: BLOOD SPECIMEN Ordering Facility: [facility] Address: [address] [place] [address] Performed By: #### 5 7021-8, 10291-7 #### [facility] CLIA [id number] [address] [place] MCHC (RBC) [Mass/Vol] 31.4 g/dL Normal 30.5-36.0 [facility] Comment on above: Order Comment: Speci men Type: BLOOD SPECIMEN Ordering Facility: [facility] Address: [address] [place] [address] Performed By: #### 5 7021-8, 20465-4 #### [facility] CLIA [id number] [address] [place] MCV (RBC) [Entitic vol] 86.4 fL Normal 80.0-100.0 [facility] Comment on above: Order Comment: Speci men Type: BLOOD SPECIMEN Ordering Facility: [facility] Address: [address] [place] [address] Performed By: #### 5 7021-8, 79903-0 #### [facility] CLIA [id number] [address] [place] Monocytes (Bld) [#/Vol] 0.47 10*3/uL Normal <0.87 [facility] Comment on above: Order Comment: Speci men Type: BLOOD SPECIMEN Ordering Facility: [facility] Address: [address] [place] [address] Performed By: #### 5 7021-8, 77629-0 #### [facility] CLIA [id number] [address] Monocytes/100 WBC (Bld) 5.8 % Normal [facility] Comment on above: Order Comment: Speci men Type: BLOOD SPECIMEN Ordering Facility: [facility] Address: [address] [place] [address] Performed By: #### 5 7021-8, 50555-7 #### [facility] CLIA [id number] [address] [place] Neutrophils (Bld) [#/Vol] 5.68 10*3/uL Normal 1.45-7.50 [facility] Comment on above: Order Comment: Speci men Type: BLOOD SPECIMEN Ordering Facility: [facility] Address: [address] [place] [address] Performed By: #### 5 7021-8, 01830-4 #### [facility] CLIA [id number] [address] [place] Neutrophils/100 WBC (Bld) 70.6 % Normal [facility] Comment on above: Order Comment: Speci men Type: BLOOD SPECIMEN Ordering Facility: [facility] Address: [address] [place] [address] Performed By: #### 5 7021-8, 32599-4 #### [facility] CLIA [id number] [address] Nucleated RBC (Bld) [#/Vol] 10*3/uL Normal <0.01 [facility] Comment on above: Order Comment: Speci men Type: BLOOD SPECIMEN Ordering Facility: [facility] Address: [address] [place] [address] Performed By: #### 5 7021-8, 15270-0 #### [facility] CLIA [id number] [address] Nucleated RBC/100 WBC (Bld) [Ratio] 0.0 /100 WBC Normal [facility] Comment on above: Order Comment: Speci men Type: BLOOD SPECIMEN Ordering Facility: [facility] Address: [address] [place] [address] Performed By: #### 5 7021-8, 80317-2 #### [facility] CLIA [id number] [address] Platelet mean volume (Bld) [Entitic vol] 12.1 fL Normal 9.0-12.7 [facility] Comment on above: Order Comment: Speci men Type: BLOOD SPECIMEN Ordering Facility: [facility] Address: [address] [place] [address] Performed By: #### 5 7021-8, 16761-5 #### [facility] CLIA [id number] [address] [place] Platelets (Bld) [#/Vol] 287 10*3/uL Normal 150-400 [facility] Comment on above: Order Comment: Speci men Type: BLOOD SPECIMEN Ordering Facility: [facility] Address: [address] [place] [address] Performed By: #### 5 7021-8, 49247-3 #### [facility] CLIA [id number] [address] OF [facility] RBC (Bld) [#/Vol] 4.20 10*6/uL Normal 3.90-5.20 [facility] Comment on above: Order Comment: Huber fraser Type: BLOOD SPECIMEN Ordering Facility: [facility] Address: [address] [place] [address] Performed By: #### 5 7021-8, 88154-2 #### [facility] CLIA [id number] [address] OF [facility] WBC (Bld) [#/Vol] 8.05 10*3/uL Normal 3.70-11.00 [facility] Comment on above: Order Comment: Huber fraser Type: BLOOD SPECIMEN Ordering Facility: [facility] Address: [address] [place] [address] Performed By: #### 5 7021-8, 21817-3 #### [facility] CLIA [id number] [address] CNOVSPon 04-04-2025 CNOVSP Visit (SP) Office (H EMBATH) ADAMELANA LIN ([id number]) 1985 F U[place] Date Time Provider Department 04/04/25 2:00 PM RASHEEDA DHALIWAL HEMBATH During your visit today, we recorded the following information about you: Temperature Pulse Blood pressure Weight 97.9 degrees 68/minute 121/81 76.8 kg Last Period 03/14/25 Rasheeda Dhaliwal PA-C 04/04/2025 2:49 PM Addendum Hematology / Oncology Anemia Consult Name: Lana Adame : 1985 Date: April 04, 2025 Referring Physician: Dr. Patricio Moeller HPI: This 39 yo female is referred for consultation of anemia. 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 Patient reported anemia with a hemoglobin of 10.9 on 03/07/25 and she was seen in the ER on 03/18/25 and had a hemoglobin of 11. There are no recent records to review in the EMR, care everywhere or scanned documents. She states she just started IV iron at [facility] and will send me her iron levels. She also states she had a EGD prior to her gastrectomy in 01/01 without any abnormalities. She states she had a colonoscopy in 01/31 that revealed internal non-bleeding hemorrhoids only. Allergies: Bee Sting Anaphylaxis HISTORIES FAMILY HISTORY Problem Relation Age of Onset Hypertension Mother Hypertension Father PAST MEDICAL HISTORY Diagnosis Date Depression Hypothyroid Psychiatric disorder PAST SURGICAL HISTORY Procedure Laterality Date LAP SLEEVE GASTRECTOMY 12/22/2022 Social History Tobacco Use Smoking status: Never Smokeless tobacco: Never Vaping Use Vaping status: Never Used Substance Use Topics Alcohol use: Yes Comment: Social Drug use: Never Current Outpatient Medications Medication Sig clonazePAM (KLONOPIN) 0.5 mg tablet Take 0.5 mg by mouth two times a day. lurasidone (LATUDA) 20 mg tablet Take 20 mg by mouth. magnesium oxide,aspartate,citr (TRIPLE MAGNESIUM COMPLEX) 400 mg magnesium cap Take 1 capsule by mouth once daily. buPROPion XL (WELLBUTRIN XL) 150 mg 24 hr tablet Take 150 mg by mouth every morning. buPROPion XL (WELLBUTRIN XL) 300 mg 24 hr tablet Take 300 mg by mouth every morning. Cyanocobalamin (VITAMIN B-12) 500 mcg lozg levothyroxine (SYNTHROID) 100 mcg tablet Take 100 mcg by mouth every afternoon. EPINEPHrine (EPIPEN) 0.3 mg/0.3 mL auto-injector cholecalciferol, vitamin D3, 4,000 unit tab Take 1 tablet by mouth once daily. multivitamin tablet Take 1 tablet by mouth once daily. No current facility-administered medications for this visit. Review of Systems Constitutional: Negative for chills, fatigue and fever. HENT: Negative for mouth sores, nosebleeds and sore throat. Respiratory: Positive for shortness of breath (mild DONOVAN with stairs). Negative for cough. Cardiovascular: Negative for chest pain and leg swelling. Gastrointestinal: Negative for abdominal pain, blood in stool, constipation, diarrhea, nausea and vomiting. Genitourinary: Positive for vaginal bleeding (has heavy periods with clots). Negative for dysuria, frequency and hematuria. Musculoskeletal: Negative for arthralgias, gait problem and myalgias. Skin: Negative for itching and rash. Neurological: Positive for headaches (migraines). Negative for dizziness, gait problem and numbness. Hematological: Negative for adenopathy. Does not bruise/bleed easily. Psychiatric/Behavioral: Negative for confusion. The patient is not nervous/anxious. BP 121/81 Pulse 68 Temp 36.6 ?C (97.9 ?F) (Temporal) Wt 76.8 kg (169 lb 5 oz) LMP 03/14/2025 (Within Days) SpO2 97% BMI 30.72 kg/m? ECOG 0 Physical Exam Constitutional: General: She is not in acute distress. HENT: Head: Normocephalic and atraumatic. Mouth/Throat: Mouth: Mucous membranes are moist. Pharynx: Oropharynx is clear. Eyes: Extraocular Movements: Extraocular movements intact. Conjunctiva/sclera: Conjunctivae normal. Pupils: Pupils are equal, round, and reactive to light. Cardiovascular: Rate and Rhythm: Normal rate and regular rhythm. Heart sounds: Normal heart sounds. No murmur heard. No friction rub. No gallop. Pulmonary: Effort: Pulmonary effort is normal. Breath sounds: Normal breath sounds. No wheezing, rhonchi or rales. Abdominal: General: Bowel sounds are normal. Palpations: Abdomen is soft. Tenderness: There is no abdominal tenderness. There is no guarding. Musculoskeletal: Right lower leg: No edema. Left lower leg: No edema. Skin: Findings: No bruising or rash. Neurological: General: No focal deficit present. Mental Status: She is alert and oriented to person, place, and time. Psychiatric: Mood and Affect: Mood normal. Behavior: Behavior normal. Labs: Assessment / Plan: Anemia Hx of gastric sleeve surgery Patient is receiving IV iron at outside hospital Will check CBC, B1, B6, B12, folate and retic levels Will also check copper an (more content not included)... Normal [facility] COPPER BLOODon 04-04-2025 Copper [Mass/Vol] 91 ug/dL Normal 80-155 [facility] Comment on above: Order Comment: Speci men Type: BLOOD SPECIMEN Ordering Facility: [facility] Address: [address] [place] [address] Result Comment: This test was developed, and its performance characteristics determined by the [facility] Department of Pathology and Laboratory Medicine. It has not been cleared or approved by the FDA. The [facility] Department of Pathology and Laboratory Medicine is regulated under CLIA as qualified to perform high-complexity testing. This test is used for clinical purposes. It should not be regarded as investigational or for research. Performed By: #### C GIOVANY, 5763-8 #### [facility] CLIA [id number] [address] [place] [address] [place] Comprehensive metabolic 2000 panelon 04-04-2025 Albumin [Mass/Vol] 4.3 g/dL 3.9 - 4.9 g/dL [facility] ALP [Catalytic activity/Vol] 64 U/L 34 - 123 U/L [facility] ALT With P-5'-P [Catalytic activity/Vol] 15 U/L 7 - 38 U/L [facility] Anion gap [Moles/Vol] 9 mmol/L 8 - 15 mmol/L [facility] AST With P-5'-P [Catalytic activity/Vol] 23 U/L 13 - 35 U/L [facility] Bilirubin [Mass/Vol] 0.2 mg/dL 0.2 - 1 .3 mg/dL [facility] Calcium [Mass/Vol] 9.4 mg/dL 8.5 - 10. 2 mg/dL [facility] Chloride [Moles/Vol] 103 mmol/L 98 - 10 7 mmol/L [facility] CO2 [Moles/Vol] 26 mmol/L 22 - 30 mmol/L [facility] Creatinine [Mass/Vol] 0.92 mg/dL 0.58 - 0.96 mg/dL [facility] GFR/1.73 sq M.predicted among non-blacks MDRD (S/P/Bld) [Vol rate/Area] 81 mL/min/{1.73_m2} - PINF [facility] Comment on above: Estimated Glomerular Filtration Rate (eGFR) is calculated using the 2020 CKD-EPI creatinine equation. This equation utilizes serum creatinine, sex, and age as parameters. The creatinine assay has traceable calibration to isotope dilution-mass spectrometry. Refer to KDIGO guidelines for clinical interpretation. In patients with unstable renal function, e.g. those with acute kidney injury, the eGFR may not accurately reflect actual GFR. Glucose [Mass/Vol] 74 mg/dL 74 - 99 mg/dL [facility] Comment on above: The [place] [employer] Association (ADA) provides guidance for cutoff values for fasting glucose and random glucose. The ADA defines fasting as no caloric intake for at least 8 hours. Fasting plasma glucose results between 100 to 125 mg/dL indicate increased risk for diabetes (prediabetes). Fasting plasma glucose results greater than or equal to 126 mg/dL meet the criteria for diagnosis of diabetes. In the absence of unequivocal hyperglycemia, results should be confirmed by repeat testing. In a patient with classic symptoms of hyperglycemia or hyperglycemic crisis, random plasma glucose results greater than or equal to 200 mg/dL meet the criteria for diagnosis of diabetes. Reference: Standards of Medical Care in Diabetes 2016, [place] [employer]. Diabetes Care. 2016.39(Suppl 1). Potassium [Moles/Vol] 4 mmol/L 3.7 - 5.1 mmol/L [facility] Protein [Mass/Vol] 7 g/dL 6.3 - 8.0 g/dL [facility] [facility] Sodium [Moles/Vol] 138 mmol/L 136 - 144 mmol/L [facility] Urea nitrogen [Mass/Vol] 9 mg/dL 7 - 21 mg/dL [facility] Albumin [Mass/Vol] 4.3 g/dL Normal 3.9-4.9 [facility] Comment on above: Order Comment: Huber fraser Type: BLOOD SPECIMEN Ordering Facility: [facility] Address: [address] [place] [address] Performed By: #### 5 0190-8, 00510-7, 2275-4 #### [facility] CLIA [id number] [address] STATES OF [facility] ALP [Catalytic activity/Vol] 64 U/L Normal 34-123 [facility] Comment on above: Order Comment: Praveenai bria Type: BLOOD SPECIMEN Ordering Facility: [facility] Address: [address] [place] [address] Performed By: #### 5 0190-8, 45008-6, 6-4 #### [facility] CLIA [id number] [address] [place] With P-5'-P [Catalytic activity/Vol] 15 U/L Normal 7-38 [facility] Comment on above: Order Comment: Speci men Type: BLOOD SPECIMEN Ordering Facility: [facility] Address: [address] [place] [address] Performed By: #### 5 0190-8, 63552-4, 6-4 #### [facility] CLIA [id number] [address] Anion gap [Moles/Vol] 9 mmol/L Normal 8-15 [facility] Comment on above: Order Comment: Speci men Type: BLOOD SPECIMEN Ordering Facility: [facility] Address: [address] [place] [address] Performed By: #### 5 0190-8, 41102-8, 2275-4 #### [facility] CLIA [id number] [address] [place] With P-5'-P [Catalytic activity/Vol] 23 U/L Normal 13-35 [facility] Comment on above: Order Comment: Speci men Type: BLOOD SPECIMEN Ordering Facility: [facility] Address: [address] [place] [address] Performed By: #### 5 0190-8, 11824-4, 2275-4 #### [facility] CLIA [id number] [address] [place] [address] OF [facility] Bilirubin [Mass/Vol] 0.2 mg/dL Normal 0.2-1.3 [facility] Comment on above: Order Comment: Speci men Type: BLOOD SPECIMEN Ordering Facility: [facility] Address: [address] [place] [address] Performed By: #### 5 0190-8, 88828-3, 2275-4 #### [facility] CLIA [id number] [address] OF [facility] Calcium [Mass/Vol] 9.4 mg/dL Normal 8.5-10.2 [facility] Comment on above: Order Comment: Speci men Type: BLOOD SPECIMEN Ordering Facility: [facility] Address: [address] [place] [address] Performed By: #### 5 0190-8, 81800-9, 6-4 #### [facility] CLIA [id number] [address] [place] [address] [place] Chloride [Moles/Vol] 103 mmol/L Normal 98-107 [facility] Comment on above: Order Comment: Speci men Type: BLOOD SPECIMEN Ordering Facility: [facility] Address: [address] [place] [address] Performed By: #### 5 0190-8, 94739-7, 6-4 #### [facility] CLIA [id number] [address] [place] CO2 [Moles/Vol] 26 mmol/L Normal 22-30 [facility] Comment on above: Order Comment: Speci men Type: BLOOD SPECIMEN Ordering Facility: [facility] Address: [address] [place] [address] Performed By: #### 5 0190-8, 74801-1, 6-4 #### [facility] CLIA [id number] [address] [place] Creatinine [Mass/Vol] 0.92 mg/dL Normal 0.58-0.96 [facility] Comment on above: Order Comment: Speci men Type: BLOOD SPECIMEN Ordering Facility: [facility] Address: [address] [place] [address] Performed By: #### 5 0190-8, 52352-7, 6-4 #### [facility] CLIA [id number] [address] Creatinine and Glomerular filtration rate.predicted panel (S/P/Bld) 81 mL/min/1.73m??? Normal >=60 [facility] Comment on above: Order Comment: Speci men Type: BLOOD SPECIMEN Ordering Facility: [facility] Address: [address] [place] [address] Result Comment: Treva mated Glomerular Filtration Rate (eGFR) is calculated using the 2020 CKD-EPI creatinine equation. This equation utilizes serum creatinine, sex, and age as parameters. The creatinine assay has traceable calibration to isotope dilution-mass spectrometry. Refer to KDIGO guidelines for clinical interpretation. In patients with unstable renal function, e.g. those with acute kidney injury, the eGFR may not accurately reflect actual GFR. Performed By: #### 5 0190-8, 69049-6, 6-4 #### [facility] CLIA [id number] [address] [place] [address] [place] Glucose [Mass/Vol] 74 mg/dL Normal 74-99 [facility] Comment on above: Order Comment: Huber fraser Type: BLOOD SPECIMEN Ordering Facility: [facility] Address: [address] [place] [address] Result Comment: The [place] Diabetes [employer] (ADA) provides guidance for cutoff values for fasting glucose and random glucose. The ADA defines fasting as no caloric intake for at least 8 hours. Fasting plasma glucose results between 100 to 125 mg/dL indicate increased risk for diabetes (prediabetes). Fasting plasma glucose results greater than or equal to 126 mg/dL meet the criteria for diagnosis of diabetes. In the absence of unequivocal hyperglycemia, results should be confirmed by repeat testing. In a patient with classic symptoms of hyperglycemia or hyperglycemic crisis, random plasma glucose results greater than or equal to 200 mg/dL meet the criteria for diagnosis of diabetes. Reference: Standards of Medical Care in Diabetes 2016, [place] [employer]. Diabetes Care. 2016.39(Suppl 1). Performed By: #### 5 0190-8, 59116-4, 4 #### [facility] CLIA [id number] [address] [place] [address] [place] Potassium [Moles/Vol] 4.0 mmol/L Normal 3.7-5.1 [facility] Comment on above: Order Comment: Huber fraser Type: BLOOD SPECIMEN Ordering Facility: [facility] Address: [address] [place] [address] Performed By: #### 5 0190-8, 01958-6, 2275-4 #### [facility] CLIA [id number] [address] [place] [address] [place] Protein [Mass/Vol] 7.0 g/dL Normal 6.3-8.0 [facility] Comment on above: Order Comment: Speci men Type: BLOOD SPECIMEN Ordering Facility: [facility] Address: [facility] [place] [address] Performed By: #### 5 0190-8, 43961-3, 2275-4 #### [facility] CLIA [id number] [address] [place] [address] [place] Sodium [Moles/Vol] 138 mmol/L Normal 136-144 [facility] Comment on above: Order Comment: Speci men Type: BLOOD SPECIMEN Ordering Facility: [facility] Address: [address] [place] [address] Performed By: #### 5 0190-8, 74299-0, 2276-02 #### [facility] CLIA [id number] [address] STATES OF [facility] Urea nitrogen [Mass/Vol] 9 mg/dL Normal 7-21 [facility] Comment on above: Order Comment: Speci men Type: BLOOD SPECIMEN Ordering Facility: [facility] Address: [address] [place] [address] Performed By: #### 5 0190-8, 76054-3, 2276-02 #### [facility] CLIA [id number] [address] OF [place] FERRITINon 04-04-2025 Ferritin [Mass/Vol] 225 ng/mL High 14.7 - 205.1 ng/mL [facility] FOLATE, SERUMon 04-04-2025 Folate [Mass/Vol] 10.4 ng/mL 4.7 - PINF ng/mL [facility] Ferritin SerPl-mCncon 2024 Ferritin [Mass/Vol] 225.0 ng/mL High 14.7-205.1 [facility] Comment on above: Order Comment: Speci men Type: BLOOD SPECIMEN Ordering Facility: [facility] Address: [address] [place] [address] Performed By: #### 5 0190-8, 20050-1, 2275-4 #### [facility] CLIA [id number] [address] [place] [address] [place] Ferritin [Mass/Vol]on 2024 Interpretation and review of laboratory results Abnormal [facility] Folate SerPl-mCncon 04-04-20 25 Folate [Mass/Vol] 10.4 ng/mL Normal >4.7 [facility] Comment on above: Order Comment: Speci men Type: BLOOD SPECIMEN Ordering Facility: [facility] Address: [address] [place] [address] Performed By: #### C GIOVANY, 5763-8 #### [facility] CLIA [id number] [address] [place] [address] [place] Iron and Iron binding capaci ty panelon 04-04-2025 Iron [Mass/Vol] 82 ug/dL 41 - 186 ug/dL [facility] Iron binding capacity [Mass/Vol] 359 ug/dL 232 - 386 ug/dL [facility] Iron saturation [Mass fraction] 22.8 % 15.0 - 57.0 % [facility] Iron [Mass/Vol] 82 ug/dL Normal 41-186 [facility] Comment on above: Order Comment: Speci men Type: BLOOD SPECIMEN Ordering Facility: [facility] Address: [address] [place] [address] Performed By: #### 5 0190-8, 87199-6, 2275-4 #### [facility] CLIA [id number] [address] [place] Iron binding capacity [Mass/Vol] 359 ug/dL Normal 232-386 [facility] Comment on above: Order Comment: Speci men Type: BLOOD SPECIMEN Ordering Facility: [facility] Address: [address] [place] [address] Performed By: #### 5 0190-8, 49877-2, 2275-4 #### [facility] CLIA [id number] [address] [place] Iron saturation [Mass fraction] 22.8 % Normal 15.0-57.0 [facility] Comment on above: Order Comment: Speci men Type: BLOOD SPECIMEN Ordering Facility: [facility] Address: [address] [place] [address] Performed By: #### 5 0190-8, 06600-7, 2276-4 #### [facility] CLIA [id number] [address] [place] No Panel Informationon 04-04 Interpretation and review of laboratory results Normal [facility] Interpretation and review of laboratory results Normal [facility] RETICULOCYTE COUNTon 025 Reticulocytes (Bld) [#/Vol] 0.071 10*3/uL [facility] Retics #on 04-04-2025 Reticulocytes (Bld) [#/Vol] 0.84435 10*3/uL Normal 0.018-0.10 0 [facility] Comment on above: Order Comment: Speci men Type: BLOOD SPECIMEN Ordering Facility: [facility] Address: [address] [place] [address] Performed By: #### 5 7021-8, 64183-6 #### [facility] CLIA [id number] [address] Reticulocytes (Bld) [#/Vol]o n 04-04-2025 Interpretation and review of laboratory results Normal [facility] Reticulocytes/100 RBC (Bld) 1.7 % 0.4 - 2.0 % [facility] Reticulocytes/100 RBC (Bld) 1.7 % Normal 0.4-2.0 [facility] Comment on above: Order Comment: Speci men Type: BLOOD SPECIMEN Ordering Facility: [facility] Address: [address] [place] [address] Performed By: #### 5 7021-8, 27282-9 #### [facility] CLIA [id number] [address] [place] VITAMIN B1 (THIAMINE), WHOLE BLOODon 04-04-2025 Thiamine (Bld) [Moles/Vol] 170.9 nmol/L Normal 84.3-213.3 [facility] Comment on above: Order Comment: Speci men Type: BLOOD SPECIMEN Ordering Facility: [facility] Address: [address] [place] [address] Result Comment: This assay measures the concentration of thiamine diphosphate (TDP), the primary active form of vitamin B1. Approximately 90 percent of vitamin B1 present in whole blood is TDP. Thiamine and thiamine monophosphate, which comprise the remaining 10 percent, are not measured. This test was developed, and its performance characteristics determined by the [facility] Department of Pathology and Laboratory Medicine. It has not been cleared or approved by the FDA. The [facility] Department of Pathology and Laboratory Medicine is regulated under CLIA as qualified to perform high-complexity testing. This test is used for clinical purposes. It should not be regarded as investigational or for research. Performed By: #### B 1WB #### [facility] CLIA [id number] [address] [place] [address] [place] VITAMIN B12on 04-04-2025 Cobalamin (Vitamin B12) [Mass/Vol] 609 pg/mL 232 - 1245 pg/mL [facility] Vit B12 SerPl-mCncon 025 Cobalamin (Vitamin B12) [Mass/Vol] 609 pg/mL Normal 232-1245 [facility] Comment on above: Order Comment: Huber fraser Type: BLOOD SPECIMEN Ordering Facility: [facility] Address: [address] [place] [address] Performed By: #### C GIOVANY, 5763-8 #### [facility] CLIA [id number] [address] [place] [address] [place] Zinc SerPl-mCncon 04-04-2025 Zinc [Mass/Vol] 61 ug/dL Normal 60-120 [facility] Comment on above: Order Comment: Huber fraser Type: BLOOD SPECIMEN Ordering Facility: [facility] Address: [address] [place] [address] Result Comment: This test was developed, and its performance characteristics determined by the [facility] Department of Pathology and Laboratory Medicine. It has not been cleared or approved by the FDA. The [facility] Department of Pathology and Laboratory Medicine is regulated under CLIA as qualified to perform high-complexity testing. This test is used for clinical purposes. It should not be regarded as investigational or for research. Performed By: #### C OPPER, 5763-8 #### [facility] CLIA [id number] [address] [place] [address] [place] Urine Cultureon 03-22-2025 URC Escherichia coli Temple Count >100,000 Escherichia coli: REACTION Ampicillin Islt RASHIDA 4 Ampicillin+Sulbac Islt RASHIDA <=2 S Cefepime Islt RASHIDA <=0.12 S cefTRIAXone Islt RASHIDA <=0.25 S Ciprofloxacin Islt RASHIDA <=0.06 S B-Lactamase Extended Susc Islt NEG Gentamicin Islt RASHIDA <=1 S levoFLOXacin Islt RASHIDA <=0.12 S Meropenem Islt RASHIDA <=0.25 S Nitrofurantoin Islt RASHIDA <=16 S Pip+Tazo Islt RASHIDA <=4 S TMP SMX Islt RASHIDA <=20 S Normal [facility] Comment on above: Performed By: #### L 100.0100, L503.6030, L503.6550 #### [facility] [address] [place], [place], [address] Laboratory - Chemistry and C hemistry - challengeOrdered By: Agustín Francis on 03-20-2025 HCG ( test) Ql (U) Negative [facility] Bilirubin Ql (U) Negative [facility] Glucose Ql (U) Negative [facility] Ketones Ql (U) Negative [facility] pH (U) 5.0 [pH] [facility] Specific gravity (U) [Rel density] 1.005 [facility] Urobilinogen (U) [Mass/Vol] 0.3305645 mg/dL [facility] - Hematology and Cell countsOrdered By: Agustín Francis on 03-20-2025 Hemoglobin Ql (U) Hemolyzed [facility] - Specimen inform ationOrdered By: Agustín Francis on 03-20-2025 Clarity (U) Clear [facility] Color (U) RED [facility] - UrinalysisOrder ed By: Agustín Francis on 03-20-2025 Nitrite Ql (U) Negative [facility] Protein Ql (U) 2+ [facility] No Panel InformationOrdered By: Agustín Francis on 03-20-2025 Urine Leukocytes Positive [facility] Urine Non-Hemolyzed Blood Large [facility] Urgent Care Visit Reporton 0 03-20-2025 Urgent Care Visit Report [facility] [address], [address] [place] [address] OFFICE VISIT Date of Service: 03/20/25 MR#: [id number] Acct: [id number] Name: LANA ADAME Rep #: [id number] : 1985 Provider: ZULMA Rahman Age/Sex: 39/F Location: [facility] Status: Signed Intake Vital Signs 03/18/25 12:27 03/20/25 15:52 Height 5 ft 2 in BP 124/80 H Position Sitting Pulse 72 Temp 97.7 F L Temp Source Oral Pulse Oximetry (%) 97 Oxygen Delivery Method room air Intake Visit Reasons: CONCERN FOR UTI Accompanied by: Self Allergies bee venom protein (honey bee) Adverse Reaction (Severe, Verified 03/20/25 15:51) Anaphylaxis Medications ???Medication ???Instructions ???Recorded ???Confirmed ???Type bupropion HCl 300 mg 24 hr tablet, 300 mg PO QHS 07/30/22 03/20/25 History extended release lurasidone 80 mg tablet (Latuda) 20 mg PO QHS 12/06/24 03/20/25 His tory clonazepam 0.5 mg tablet 0.5 mg PO BID 12/07/24 03/20/25 Hi story cholecalciferol (vitamin D3) 50 4,000 unit PO DAILY 02/17/2503/20 History mcg (2,000 unit) capsule ferrous sulfate 325 mg (65 mg 325 mg PO QDAY 02/17/25 03/20/25 H istory iron) tablet (FeroSul) levothyroxine 100 mcg tablet 100 mcg PO DAILY 02/17/25 03/20/25 History magnesium oxide 500 mg capsule 500 mg PO DAILY 02/17/25 03/20/25 History multivitamin 1 tab PO DAILY 02/17/25 03/20/25 H istory epinephrine 0.3 mg/0.3 mL 0.3 mg IM ONCE 03/09/25 03/20/25 H istory injection, auto-injector (EpiPen) bupropion HCl 150 mg 24 hr tablet, 150 mg PO QAM 03/20/25 03/20/25 History extended release nitrofurantoin 100 mg PO Q12H 5 days #10 caps 11/0203/20/25 Rx monohydrate/macrocrystals 100 mg capsule (Macrobid) Nurse's Note: Patient has urgency and pain with urination that has been going on for 3 hours. [facility] Medical History GERD (gastroesophageal reflux disease) Carpal tunnel syndrome Insomnia KARINE (obstructive sleep apnea) Former smoker Depression Anxiety Alcohol use Anemia Back pain Migraine headache CPAP (continuous positive airway pressure) dependence Shortness of breath on exertion History of echocardiogram Seizures Cardiology follow-up encounter Polycystic ovary Hormone deficiency Rectal discomfort Constipation Hepatic steatosis Obesity, morbid, BMI 40.0-49.9 Hypothyroidism Normal spontaneous vaginal delivery Surgical History History of liver biopsy Hx of gastric bypass History of colonoscopy H/O hernia repair H/O gastric sleeve Family History Father Hypertension Obesity Mother Hypertension Obesity Grandfather Colon cancer Uncle Colon cancer Social History household members: spouse Smoking Status: Former smoker how long ago did patient quit smoking: quit 20 years ago alcohol intake: current alcohol intake frequency: holidays/special occasions only substance use type: does not use what type of physical activity do you participate in: walking frequency: 1-2 times per week additional social history: pt denies vaping, denies edibles, denies marijuana uses aspirin and ibuprofen as needed HPI HPI Details: LANA ADAME, is a 39 F who presents to the office today for [facility] for approximately 3-hour history of dysuria and urinary frequency with suprapubic pressure. No complaints of fever, chills, sweats, lightheadedness/dizziness, nausea/vomiting, or chest pain/shortness of breath/dyspnea on exertion/back pain. No changes in color/ character of urine or stool. No byas-brb-wkccidx products taken to assist. No other associated symptoms and no alleviating/aggravating factors. ROS Const Constitutional: No other (As above) Exam Const General: cooperative, healthy appearing and no acute distress Orientation: alert, awake and oriented x3 Chest Chest palpation inspection: normal inspection of the chest Resp Effort Inspection: normal respiratory effort and able to speak in complete sentences Auscultation: Bilateral: Clear to Auscultation Cardio Palpation: normal PMI Rate: regular rate Rhythm: regular rhythm Heart Sounds: S1 normal, S2 normal, no gallops, no murmurs and no rubs Pulses: radial pulses present GI Inspection: normal to inspection Palpation: soft and tender suprapubic (Patient describes upon self-palpation) General: No CVA tenderness Skin General: no rashes or lesions noted Neuro General: patient alert, patient awake and patient oriented x3 Cognition: normal cognition Speech: speech normal Psych Appearance: grossly normal Mental Stat (more content not included)... Normal [facility] Urine cultureOrdered By: Antoine Francis on 03-20-2025 Bacteria identified Cx Nom (U) Escherichia coli Abnormal [facility] Absolute lymphocyte countOrd ered By: Mai Sandoval on 03-18-2025 Lymphocytes Auto (Unsp spec) [#/Vol] 1.90 10*3/uL 0.83-4.51 [facility] Absolute neutrophil countOrd ered By: Mai Sandoval on 03-18-2025 Neutrophils (Bld) [#/Vol] 3.9 10*3/uL 2.0-7.7 [facility] Anion gap in Serum or Plasma Ordered By: Mai Sandoval on 03-18-2025 Anion gap [Moles/Vol] 11 mmol/L 5- [facility] Automated lymphocyte count a s percentage of total leukocytesOrdered By: Mai Sandoval on 03-18-2025 Lymphocytes/100 WBC Auto (Unsp spec) 29.2 % - [facility] BUN/creatinine ratioOrdered By: Mai Sandoval on 03-18-2025 Urea nitrogen/Creatinine [Mass ratio] 12.5 mg/mg 08-28 [facility] Basic Metabolic Profile (BMP )on 03-18-2025 BUN/CRE 12.5 RATIO Normal 08-28 [facility] Comment on above: Performed By: #### L 100.0100, L503.6030, L503.6550 #### [facility] [address] [place], [address] Calcium [Mass/Vol] 9.2 mg/dL Normal 7.6-11.0 [facility] Comment on above: Performed By: #### L 100.0100, L503.6030, L503.6550 #### [facility] [address] [place], [address] Chloride [Moles/Vol] 103 mmol/L Normal 98-108 [facility] Comment on above: Performed By: #### L 100.0100, L503.6030, L503.6550 #### [facility] [address] [place], [address] CO2 [Moles/Vol] 23.8 mmol/L Normal 21.0-32.0 [facility] Comment on above: Performed By: #### L 100.0100, L503.6030, L503.6550 #### [facility] [address] [place], [address] Creatinine [Mass/Vol] 1.02 mg/dL Normal 0.70-1.20 [facility] Comment on above: Performed By: #### L 100.0100, L503.6030, L503.6550 #### [facility] [address] [place], [address] ECRCL 70.77 ml/min Normal 50-250 [facility] Comment on above: Performed By: #### L 100.0100, L503.6030, L503.6550 #### [facility] [address] [place], [address] GAP 11 Normal 5-15 [facility] Comment on above: Performed By: #### L 100.0100, L503.6030, L503.6550 #### [facility] [address] [place], [address] GFR/1.73 sq M.predicted among non-blacks MDRD (S/P/Bld) [Vol rate/Area] 72 mL/min/{1.73_m2} Normal >60 [facility] Comment on above: Result Comment: mL/m in/1.73m2 CKD-EPI Creatinine Equation (2020) Performed By: #### L 100.0100, L503.6030, L503.6550 #### [facility] [address] [place], [address] Glucose [Mass/Vol] 75 mg/dL Normal 70-99 [facility] Comment on above: Performed By: #### L 100.0100, L503.6030, L503.6550 #### [facility] [address] [place], [address] Potassium [Moles/Vol] 4.3 mmol/L Normal 3.3-5.1 [facility] [facility] [place] Comment on above: Performed By: #### L 100.0100, L503.6030, L503.6550 #### [facility] [address] [place], [address] Sodium [Moles/Vol] 138 mmol/L Normal 133-145 [facility] Comment on above: Performed By: #### L 100.0100, L503.6030, L503.6550 #### [facility] [address] [place], [address] Urea nitrogen [Mass/Vol] 13 mg/dL Normal 4-19 [facility] Comment on above: Performed By: #### L 100.0100, L503.6030, L503.6550 #### [facility] [address] [place], [address] Basophil percentageOrdered B y: Mai Sandoval on 03-18-2025 Basophils/100 WBC (Bld) 0.9 % 0-1 [facility] CBC W/Diff, Automatedon 05-1 0-2025 Absolute Lymph 1.90 X10 3/uL Normal 0.83-4.51 [facility] Comment on above: Performed By: #### L 100.0100, L503.6030, L503.6550 #### [facility] [address] [place], [address] Absolute Neut 3.9 X10 3/uL Normal 2.0-7.7 [facility] Comment on above: Performed By: #### L 100.0100, L503.6030, L503.6550 #### [facility] [address] [place], [address] Basophils/100 WBC (Bld) 0.9 % Normal 0-1 [facility] Comment on above: Performed By: #### L 100.0100, L503.6030, L503.6550 #### [facility] [address] [place], [address] Eosinophils/100 WBC (Bld) 2.5 % Normal 0-5 [facility] Comment on above: Performed By: #### L 100.0100, L503.6030, L503.6550 #### [facility] [address] [place], [address] Erythrocyte distribution width (RBC) [Ratio] 15.5 % High 11.6-14.6 [facility] Comment on above: Performed By: #### L 100.0100, L503.6030, L503.6550 #### [facility] [address] [place], [address] Hematocrit (Bld) [Volume fraction] 37.0 % Normal 37-47 [facility] Comment on above: Performed By: #### L 100.0100, L503.6030, L503.6550 #### [facility] [address] [place], [address] Hemoglobin (Bld) [Mass/Vol] 11.7 g/dL Low 12.0-15.0 [facility] Comment on above: Performed By: #### L 100.0100, L503.6030, L503.6550 #### [facility] [address] [place], [address] IG% 0.300 Normal 0.0-0.9 [facility] Comment on above: Result Comment: IG% - Immature Granulocytes (promyelocytes, myelocytes and metamyelocytes) > 1% indicates that a LEFT SHIFT is Present. Performed By: #### L 100.0100, L503.6030, L503.6550 #### [facility] [address] [place], [address] Lymphocytes/100 WBC (Bld) 29.2 % Normal 19-41 [facility] Comment on above: Performed By: #### L 100.0100, L503.6030, L503.6550 #### [facility] [address] [place], [address] MCH (RBC) [Entitic mass] 26.5 pg Low 27.0-32.0 [facility] Comment on above: Performed By: #### L 100.0100, L503.6030, L503.6550 #### [facility] [address] [place], [address] MCHC (RBC) [Mass/Vol] 31.6 g/dL Low 32-36 [facility] Comment on above: Performed By: #### L 100.0100, L503.6030, L503.6550 #### [facility] [address] [place], [address] MCV (RBC) [Entitic vol] 83.7 fL Normal 81-99 [facility] Comment on above: Performed By: #### L 100.0100, L503.6030, L503.6550 #### [facility] [address] [place], [address] Monocytes/100 WBC (Bld) 7.8 % Normal 0-10 [facility] Comment on above: Performed By: #### L 100.0100, L503.6030, L503.6550 #### [facility] [address] [place], [address] Neutrophils/100 WBC (Bld) 59.3 % Normal 47-70 [facility] Comment on above: Performed By: #### L 100.0100, L503.6030, L503.6550 #### [facility] [address] [place], [address] Nucleated RBC (Bld) [#/Vol] 0 10*3/uL Normal 0-5 [facility] Comment on above: Performed By: #### L 100.0100, L503.6030, L503.6550 #### [facility] [address] [place], [address] Platelet mean volume (Bld) [Entitic vol] 11.1 fL Normal 6.2-12.0 [facility] Comment on above: Performed By: #### L 100.0100, L503.6030, L503.6550 #### [facility] [address] [place], [address] Platelets (Bld) [#/Vol] 307 10*3/uL Normal 150-450 [facility] Comment on above: Performed By: #### L 100.0100, L503.6030, L503.6550 #### [facility] [address] [place], [address] RBC (Bld) [#/Vol] 4.42 10*6/uL Normal 4.2-5.4 [facility] Comment on above: Performed By: #### L 100.0100, L503.6030, L503.6550 #### [facility] [address] [place], [address] RDW SD 47.1 fl High 35.1-43.9 [facility] Comment on above: Performed By: #### L 100.0100, L503.6030, L503.6550 #### [facility] [address] [place], [address] WBC (Bld) [#/Vol] 6.5 10*3/uL Normal 4.4-11.0 [facility] Comment on above: Performed By: #### L 100.0100, L503.6030, L503.6550 #### [facility] [address] [place], [address] Carbon dioxide, total [Moles /volume] in Central venous bloodOrdered By: Mai Sandoval on 03-18-2025 CO2 [Moles/Vol] 23.8 mmol/L 21.0-32.0 [facility] Chloride assayOrdered By: Genna Sandoval on 03-18-2025 Chloride [Moles/Vol] 103 mmol/L 98-108 [facility] Emergency Department Summary on 03-18-2025 Emergency Department Summary [facility] Medical Records Department [address] [place] [address] Emergency Department Summary 03/18/25 MR#: [id number] Acct: [id number] Name: LANA ADAME Rep #: [id number] : 1985 39 From: Antwon Liriano MD PCP: Dr. Patricio Moeller MD Status:DEP ER Location: ED HPI History of Present Illness Chief Complaint: Dizziness Narrative Narrative: 39-year-old female with PMH of PCOS, anemia, hypothyroidism states she woke up around 6:30 AM and has felt lightheaded, shaky, and both hands feel clammy. She states she had more to drink than usual last night. She had 4 shots of tequila and 1 cocktail. She felt fine at that time and had no vomiting and has been keeping down Gatorade and water and food this morning but her lightheadedness persisted at work prompting her evaluation. She has no chest pain, shortness of breath, syncope, abdominal pain, nausea or vomiting, diarrhea, or urinary symptoms. She is on day 3 of her menses and states it is always heavy. She was recently diagnosed with iron deficiency anemia and is scheduled to start iron infusions with Dr. Salazar later this month. [facility] Medical History GERD (gastroesophageal reflux disease) Carpal tunnel syndrome Insomnia KARINE (obstructive sleep apnea) Former smoker Depression Anxiety Alcohol use Anemia Back pain Migraine headache CPAP (continuous positive airway pressure) dependence Shortness of breath on exertion History of echocardiogram Seizures Cardiology follow-up encounter Polycystic ovary Hormone deficiency Rectal discomfort Constipation Hepatic steatosis Obesity, morbid, BMI 40.0-49.9 Hypothyroidism Normal spontaneous vaginal delivery Home Medications ???Medication ???Instructions ???Recorded ???Last Taken ???Type bupropion HCl 300 mg 24 hr tablet, 300 mg PO QHS 07/30/22 Unknown H istory extended release lurasidone 80 mg tablet (Latuda) 20 mg PO QHS 12/06/24 Unknown Hist ory clonazepam 0.5 mg tablet 0.5 mg PO BID 12/07/24 Unknown His tory cholecalciferol (vitamin D3) 50 4,000 unit PO DAILY 02/17/25 Unkno wn History mcg (2,000 unit) capsule ferrous sulfate 325 mg (65 mg 325 mg PO QDAY 02/17/25 Unknown Hi story iron) tablet (FeroSul) levothyroxine 100 mcg tablet 100 mcg PO DAILY 02/17/25 Unknown History magnesium oxide 500 mg capsule 500 mg PO DAILY 02/17/25 Unknown H istory multivitamin 1 tab PO DAILY 02/17/25 Unknown Hi story epinephrine 0.3 mg/0.3 mL 0.3 mg IM ONCE 03/09/25 Unknown Hi story injection, auto-injector (EpiPen) Allergy/AdvReac Type Severity Reaction Status Date / Time bee venom protein (honey bee) AdvReac Severe Anaphylaxis Verified 03/18/25 12:27 Family History Father Hypertension Obesity Mother Hypertension Obesity Grandfather Colon cancer Uncle Colon cancer Surgical History History of liver biopsy Hx of gastric bypass History of colonoscopy H/O hernia repair H/O gastric sleeve Social History household members: spouse Smoking Status: Former smoker how long ago did patient quit smoking: quit 20 years ago alcohol intake: current alcohol intake frequency: holidays/special occasions only substance use type: does not use what type of physical activity do you participate in: walking frequency: 1-2 times per week additional social history: pt denies vaping, denies edibles, denies marijuana uses aspirin and ibuprofen as needed ROS ROS ED ROS Narrative Constitutional: Negative for fever, chills, malaise. CVS: Negative for palpitations, chest pain, syncope. Respiratory: Negative for shortness of breath, cough. GI: Negative for abdominal pain, nausea, vomiting, diarrhea. EXAM Physical Exam Narrative Exam Narrative: CONST: Patient sitting in no acute distress. EYES: Normal inspection. ENT: Normal inspection, moist mucous membranes. NECK: Normal inspection. RESP: No respiratory distress, CTAB. CVS: Regular rate and rhythm, no murmur, no gallop. ABD: Soft and nontender, no guarding or rebound, nondistended. SKIN: Color normal, no rash, warm, dry, intact. EXTREMITIES: Normal appearance, no pedal edema. NEURO: Alert and answering questions appropriately. PSYCH: Normal affect. Const Vital Signs: 03/18/25 12:27 03/18/25 13:27 03/18/25 13:36 Temperature 98.1 F 98.1 F Temperature Source Oral Pulse Rate 66 66 Pulse Rate [Lying] 80 Pulse Rate [Sitting (for 1 minute prior to obtaining)] 78 Pulse Rate [Standing (for 1 minute prior to obtaining)] 87 Respiratory Rate 16 16 Blood Pressure 143/97 H 136/82 H Blood Pressure [Lying] 139/79 H Blood Press (more content not included)... Normal [facility] Eosinophil percentageOrdered By: Mai Sandoval on 03-18-2025 Eosinophils/100 WBC (Bld) 2.5 % 0-5 [facility] Erythrocyte distribution wid th ratioOrdered By: Mai Sandoval on 03-18-2025 Erythrocyte distribution width (RBC) [Ratio] 15.5 % High 11.6-14.6 [facility] Erythrocyte distribution wid th standard deviationOrdered By: Mai Sandoval on 03-18-2025 Erythrocyte distribution width (RBC) [Ratio] 47.1 fl High 35.1-43.9 [facility] Glomerular filtration rate ( GFR) estimation/1.73 sq m using serum, plasma, or whole bOrdered By: Mai Sandoval on 03-18-2025 GFR/1.73 sq M.predicted among non-blacks MDRD (S/P/Bld) [Vol rate/Area] 72 mL/min/{1.73_m2} >60 [facility] Comment on above: mL/min/1.73m2 CKD-EP I Creatinine Equation (2020) Hematocrit Auto (Bld) [Volum e fraction]Ordered By: Mai Sandoval on 03-18-2025 Hematocrit (Bld) [Volume fraction] 37.0 % 37-47 [facility] Hemoglobin measurementOrdere d By: Mai Sandoval on 03-18-2025 Hemoglobin (Bld) [Mass/Vol] 11.7 g/dL Low 12.0-15.0 [facility] Immature granulocytes/100 WB C Auto (Bld)Ordered By: Mai Sandoval on 03-18-2025 Immature granulocytes/100 WBC (Bld) 0.300 % 0.0-0.9 [facility] Comment on above: IG% - Immature Granu locytes (promyelocytes, myelocytes and metamyelocytes) > 1% indicates that a LEFT SHIFT is Present. MCV (mean corpuscular volume ) determinationOrdered By: Mai Sandoval on 03-18-2025 MCV (RBC) [Entitic vol] 83.7 fL 81-99 [facility] Mean corpuscular hemoglobin (MCH) determinationOrdered By: Mai Sandoval on 03-18-2025 MCH (RBC) [Entitic mass] 26.5 pg Low 27.0-32.0 [facility] Mean corpuscular hemoglobin concentration (MCHC) determinationOrdered By: Mai Sandoval on 03-18-2025 MCHC (RBC) [Mass/Vol] 31.6 g/dL Low 32-36 [facility] Mean platelet volume determi nationOrdered By: Mai Sandoval on 03-18-2025 Platelet mean volume (Bld) [Entitic vol] 11.1 fL 6.2-12.0 [facility] Monocyte percentageOrdered B y: Mai Sandoval on 03-18-2025 Monocytes/100 WBC (Bld) 7.8 % 0-10 [facility] Neutrophil percentageOrdered By: Mai Sandoval on 03-18-2025 Neutrophils/100 WBC (Bld) 59.3 % 47-70 [facility] Nucleated red blood cell per centageOrdered By: Mai Sandoval on 03-18-2025 Nucleated RBC/100 WBC (Bld) [Ratio] 0 % 0-5 [facility] Platelet countOrdered By: Genna Sandoval on 03-18-2025 Platelets (Bld) [#/Vol] 307 10*3/uL 150-450 [facility] Potassium measurement (mass/ volume)Ordered By: Mai Sandoval on 03-18-2025 Potassium (Unsp spec) [Mass/Vol] 4.3 mmol/L 3.3-5.1 [facility] RBC Auto (Bld) [#/Vol]Ordere d By: Mai Sandoval on 03-18-2025 RBC (Bld) [#/Vol] 4.42 10*6/uL 4.2-5.4 [facility] Serum creatinine measurement (mass/volume)Ordered By: Mai Sandoval on 03-18-2025 Creatinine [Mass/Vol] 1.02 mg/dL 0.70-1.20 [facility] Serum glucose measurement (m ass/volume)Ordered By: Mai Sandoval on 03-18-2025 Glucose [Mass/Vol] 75 mg/dL 70-99 [facility] Serum or plasma calcium alonso urement (mass/volume)Ordered By: Mai Sandoval on 03-18-2025 Calcium [Mass/Vol] 9.2 mg/dL 7.6-11.0 [facility] Serum or plasma urea nitroge n measurement (mass/volume)Ordered By: Mai Sandoval on 03-18-2025 Urea nitrogen [Mass/Vol] 13 mg/dL 4-19 [facility] Sodium levelOrdered By: Mai Sandoval on 03-18-2025 Sodium [Moles/Vol] 138 mmol/L 133-145 [facility] White blood cell (WBC) count Ordered By: Mai Sandoval on 03-18-2025 WBC (Bld) [#/Vol] 6.5 10*3/uL 4.4-11.0 [facility] Oncology Visit Reporton Oncology Visit Report [facility] [place] [address] [address] OFFICE VISIT Date of Service: 03/15/25 1556 MR#: [id number] Acct: [id number] Name: LANA ADAME Rep #: [id number] : 1985 From: Zaid Salazar MD Age/Sex: 39/F Location[place] [facility] [place] Status: Signed HPI Subjective Date of Service 03/15/25 Chief Complaint Referred for Iron deficiency anemia management. History of Present Illness 39y.o.woman had Bariatric surgery in 2022. She was found to have Iron deficiency anemia, was started on Oral Iron. There was no significant improvement in HGB so referred for IV Iron. [facility] Medical History GERD (gastroesophageal reflux disease) Carpal tunnel syndrome Insomnia KARINE (obstructive sleep apnea) Former smoker Depression Anxiety Alcohol use Anemia Back pain Migraine headache CPAP (continuous positive airway pressure) dependence Shortness of breath on exertion History of echocardiogram Seizures Cardiology follow-up encounter Polycystic ovary Hormone deficiency Rectal discomfort Constipation Hepatic steatosis Obesity, morbid, BMI 40.0-49.9 Hypothyroidism Normal spontaneous vaginal delivery Surgical History History of liver biopsy Hx of gastric bypass History of colonoscopy H/O hernia repair H/O gastric sleeve Family History Father Hypertension Obesity Mother Hypertension Obesity Grandfather Colon cancer Uncle Colon cancer Social History (Updated 03/15/25 @ 16:03 by Trisha Whitfield) household members: spouse Smoking Status: Former smoker how long ago did patient quit smoking: quit 20 years ago alcohol intake: current alcohol intake frequency: holidays/special occasions only substance use type: does not use what type of physical activity do you participate in: walking frequency: 1-2 times per week additional social history: pt denies vaping, denies edibles, denies marijuana uses aspirin and ibuprofen as needed ROS Constitutional Constitutional: Reports systems reviewed and no addt'l complaints, except as documented Eyes Eyes: Reports systems reviewed and no addt'l complaints, except as documented ENT HEENT: Reports systems reviewed and no addt'l complaints, except as documented Cardiovascular Cardiovascular: Reports systems reviewed and no addt'l complaints, except as documented Respiratory/Chest Respiratory/Chest: Reports systems reviewed and no addt'l complaints, except as documented Gastrointestinal Gastrointestinal: Reports systems reviewed and no addt'l complaints, except as documented Genitourinary Genitourinary: Reports systems reviewed and no addt'l complaints, except as documented Musculoskeletal Musculoskeletal: Reports systems reviewed and no addt'l complaints, except as documented Integumentary Integumentary: Reports systems reviewed and no addt'l complaints, except as documented Neurologic Neurologic: Reports systems reviewed and no addt'l complaints, except as documented Psychiatric Psychiatric: Reports systems reviewed and no addt'l complaints, except as documented Endocrine Endocrinology: Reports systems reviewed and no addt'l complaints, except as documented Hematologic/Lymphatic Hematologic/Lymphatic: Reports systems reviewed and no addt'l complaints, except as documented Allergic/Immunologic Allergic/Immunologic: Reports systems reviewed and no addt'l complaints, except as documented Intake Vital Signs 02/08/25 14:22 03/15/25 15:57 03/15/25 16:04 Height 5 ft 2 in 5 ft 2 in 5 ft 2 in Weight: 76.26 kg BMI 30.7 BP 135/91 H Blood Pressure Location Lt brachial Position Sitting Respiration 16 Pulse 68 Pulse Source Monitor Temp 98.3 F Temperature Source Temporal Artery Pulse Oximetry (%) 100 Oxygen Delivery Method room air Intake Is patient in pain?: No Allergies bee venom protein (honey bee) Adverse Reaction (Severe, Verified 03/15/25 16:01) Anaphylaxis Medications ???Medication ???Instructions ???Recorded ???Confirmed ???Type bupropion HCl 300 mg 24 hr tablet, 300 mg PO QHS 07/30/22 03/15/25 History extended release lurasidone 80 mg tablet (Latuda) 20 mg PO QHS 12/06/24 03/15/25 His tory clonazepam 0.5 mg tablet 0.5 mg PO BID 12/07/24 03/15/25 Hi story cholecalciferol (vitamin D3) 50 4,000 unit PO DAILY 02/17/2503/15 History mcg (2,000 unit) capsule ferrous sulfate 325 mg (65 mg 325 mg PO QDAY 02/17/25 03/15/25 H istory iron) tablet (FeroSul) levothyroxine 100 mcg tablet 100 mcg PO DAILY 02/17/25 03/15/25 History magnesium oxide 500 mg capsule 500 mg PO DAILY 02/17/25 03/15/25 History multivitamin 1 tab PO DAILY 02/17/25 03/15/25 H (more content not included)... Normal [facility] Absolute lymphocyte countOrd ered By: Patricio Moeller on 03-07-2025 Lymphocytes Auto (Unsp spec) [#/Vol] 1.68 10*3/uL 0.83-4.51 [facility] Absolute neutrophil countOrd ered By: Patricio Moeller on 03-07-2025 Neutrophils (Bld) [#/Vol] 3.7 10*3/uL 2.0-7.7 [facility] Automated lymphocyte count a s percentage of total leukocytesOrdered By: Patricio Moeller on 03-07-2025 Lymphocytes/100 WBC Auto (Unsp spec) 27.8 % 19-41 [facility] Basophil percentageOrdered B y: Patricio Moeller on 03-07-2025 Basophils/100 WBC (Bld) 1.2 % High 0-1 [facility] CBC W/Diff, Automatedon 02-08 Absolute Lymph 1.68 X10 3/uL Normal 0.83-4.51 [facility] Comment on above: Order Comment: Order Date: 03/01/25 Order Info: 0184-1 - CBCD Performed By: #### L 100.0100 #### [facility] [address] [place], [address] Absolute Neut 3.7 X10 3/uL Normal 2.0-7.7 [facility] Comment on above: Order Comment: Order Date: 03/01/25 Order Info: 0184-1 - CBCD Performed By: #### L 100.0100 #### [facility] [address] [place], [address] Basophils/100 WBC (Bld) 1.2 % High 0-1 [facility] Comment on above: Order Comment: Order Date: 03/01/25 Order Info: 0184-1 - CBCD Performed By: #### L 100.0100 #### [facility] [address] [place], [address] Eosinophils/100 WBC (Bld) 2.5 % Normal 0-5 [facility] Comment on above: Order Comment: Order Date: 03/01/25 Order Info: 0184-1 - CBCD Performed By: #### L 100.0100 #### [facility] [address] [place], [address] Erythrocyte distribution width (RBC) [Ratio] 15.7 % High 11.6-14.6 [facility] Comment on above: Order Comment: Order Date: 03/01/25 Order Info: 0184-1 - CBCD Performed By: #### L 100.0100 #### [facility] [address] [place], [address] Hematocrit (Bld) [Volume fraction] 35.5 % Low 37-47 [facility] Comment on above: Order Comment: Order Date: 03/01/25 Order Info: 0184-1 - CBCD Performed By: #### L 100.0100 #### [facility] [address] [place], [address] Hemoglobin (Bld) [Mass/Vol] 10.9 g/dL Low 12.0-15.0 [facility] Comment on above: Order Comment: Order Date: 03/01/25 Order Info: 0184-1 - CBCD Performed By: #### L 100.0100 #### [facility] [address] [place], [address] IG% 0.300 Normal 0.0-0.9 [facility] Comment on above: Order Comment: Order Date: 03/01/25 Order Info: 018- - CBCD Result Comment: IG% - Immature Granulocytes (promyelocytes, myelocytes and metamyelocytes) > 1% indicates that a LEFT SHIFT is Present. Performed By: #### L 100.0100 #### [facility] [address] [place], [address] Lymphocytes/100 WBC (Bld) 27.8 % Normal 19-41 [facility] Comment on above: Order Comment: Order Date: 03/01/25 Order Info: 018- - CBCD Performed By: #### L 100.0100 #### [facility] [address] [place], [address] MCH (RBC) [Entitic mass] 26.0 pg Low 27.0-32.0 [facility] Comment on above: Order Comment: Order Date: 03/01/25 Order Info: 018- - CBCD Performed By: #### L 100.0100 #### [facility] [address] [place], [address] MCHC (RBC) [Mass/Vol] 30.7 g/dL Low 32-36 [facility] Comment on above: Order Comment: Order Date: 03/01/25 Order Info: 018- - CBCD Performed By: #### L 100.0100 #### [facility] [address] [place], [address] MCV (RBC) [Entitic vol] 84.7 fL Normal 81-99 [facility] Comment on above: Order Comment: Order Date: 03/01/25 Order Info: 018-1 - CBCD Performed By: #### L 100.0100 #### [facility] [address] [place], [address] Monocytes/100 WBC (Bld) 7.6 % Normal 0-10 [facility] Comment on above: Order Comment: Order Date: 03/01/25 Order Info: 0184-1 - CBCD Performed By: #### L 100.0100 #### [facility] [address] [place], [address] Neutrophils/100 WBC (Bld) 60.6 % Normal 47-70 [facility] Comment on above: Order Comment: Order Date: 03/01/25 Order Info: 0184-1 - CBCD Performed By: #### L 100.0100 #### [facility] [address] [place], [address] Nucleated RBC (Bld) [#/Vol] 0 10*3/uL Normal 0-5 [facility] Comment on above: Order Comment: Order Date: 03/01/25 Order Info: 0184-1 - CBCD Performed By: #### L 100.0100 #### [facility] [address] [place], [address] Platelet mean volume (Bld) [Entitic vol] 11.8 fL Normal 6.2-12.0 [facility] Comment on above: Order Comment: Order Date: 03/01/25 Order Info: 0184-1 - CBCD Performed By: #### L 100.0100 #### [facility] [address] [place], [address] Platelets (Bld) [#/Vol] 273 10*3/uL Normal 150-450 [facility] Comment on above: Order Comment: Order Date: 03/01/25 Order Info: 0184-1 - CBCD Performed By: #### L 100.0100 #### [facility] [address] [place], [address] RBC (Bld) [#/Vol] 4.19 10*6/uL Low 4.2-5.4 [facility] Comment on above: Order Comment: Order Date: 03/01/25 Order Info: 0184-1 - CBCD Performed By: #### L 100.0100 #### [facility] [address] [place], [address] RDW SD 48.1 fl High 35.1-43.9 [facility] Comment on above: Order Comment: Order Date: 03/01/25 Order Info: 0184-1 - CBCD Performed By: #### L 100.0100 #### [facility] [address] [place], [place], [id number] WBC (Bld) [#/Vol] 6.1 10*3/uL Normal 4.4-11.0 [facility] Comment on above: Order Comment: Order Date: 03/01/25 Order Info: 0184-1 - CBCD Performed By: #### L 100.0100 #### [facility] [address] [place], [place], [id number] Eosinophil percentageOrdered By: Patricio Moeller on 03-07-2025 Eosinophils/100 WBC (Bld) 2.5 % 0-5 [facility] Erythrocyte distribution wid th ratioOrdered By: Patricio Moeller on 03-07-2025 Erythrocyte distribution width (RBC) [Ratio] 15.7 % High 11.6-14.6 [facility] Erythrocyte distribution wid th standard deviationOrdered By: Patricio Moeller on 03-07-2025 Erythrocyte distribution width (RBC) [Ratio] 48.1 fl High 35.1-43.9 [facility] Hematocrit Auto (Bld) [Volum e fraction]Ordered By: Patricio Moeller on 03-07-2025 Hematocrit (Bld) [Volume fraction] 35.5 % Low 37-47 [facility] Hemoglobin measurementOrdere d By: Patricio Moeller on 03-07-2025 Hemoglobin (Bld) [Mass/Vol] 10.9 g/dL Low 12.0-15.0 [facility] Immature granulocytes/100 WB C Auto (Bld)Ordered By: Patricio Moeller on 03-07-2025 Immature granulocytes/100 WBC (Bld) 0.300 % 0.0-0.9 [facility] Comment on above: IG% - Immature Granu locytes (promyelocytes, myelocytes and metamyelocytes) > 1% indicates that a LEFT SHIFT is Present. MCV (mean corpuscular volume ) determinationOrdered By: Patricio Moeller on 03-07-2025 MCV (RBC) [Entitic vol] 84.7 fL 81-99 [facility] Mean corpuscular hemoglobin (MCH) determinationOrdered By: Patricio Moeller on 03-07-2025 MCH (RBC) [Entitic mass] 26.0 pg Low 27.0-32.0 [facility] Mean corpuscular hemoglobin concentration (MCHC) determinationOrdered By: Patricio Moeller on 03-07-2025 MCHC (RBC) [Mass/Vol] 30.7 g/dL Low 32-36 [facility] Mean platelet volume determi nationOrdered By: Patricio Moeller on 03-07-2025 Platelet mean volume (Bld) [Entitic vol] 11.8 fL 6.2-12.0 [facility] Monocyte percentageOrdered B y: Patricio Moeller on 03-07-2025 Monocytes/100 WBC (Bld) 7.6 % 0-10 [facility] Neutrophil percentageOrdered By: Patricio Moeller on 03-07-2025 Neutrophils/100 WBC (Bld) 60.6 % 47-70 [facility] Nucleated red blood cell per centageOrdered By: Patricio Moeller on 03-07-2025 Nucleated RBC/100 WBC (Bld) [Ratio] 0 % 0-5 [facility] Platelet countOrdered By: Zulma Moeller on 03-07-2025 Platelets (Bld) [#/Vol] 273 10*3/uL 150-450 [facility] RBC Auto (Bld) [#/Vol]Ordere d By: Patricio Moeller on 03-07-2025 RBC (Bld) [#/Vol] 4.19 10*6/uL Low 4.2-5.4 [facility] White blood cell (WBC) count Ordered By: Patricio Moeller on 03-07-2025 WBC (Bld) [#/Vol] 6.1 10*3/uL 4.4-11.0 [facility] Absolute lymphocyte countOrd ered By: Patricio Moeller on 02-28-2025 Lymphocytes Auto (Unsp spec) [#/Vol] 1.25 10*3/uL 0.83-4.51 [facility] Absolute neutrophil countOrd ered By: Patricio Sunni on 02-28-2025 Neutrophils (Bld) [#/Vol] 1.9 10*3/uL Low 2.0-7.7 [facility] Automated lymphocyte count a s percentage of total leukocytesOrdered By: Patricio Moeller on 02-28-2025 Lymphocytes/100 WBC Auto (Unsp spec) 33.3 % 19-41 [facility] Basophil percentageOrdered B y: Patricio Moeller on 02-28-2025 Basophils/100 WBC (Bld) 1.3 % High 0-1 [facility] CBC W/Diff, Automatedon 02-08 Absolute Lymph 1.25 X10 3/uL Normal 0.83-4.51 [facility] Comment on above: Performed By: #### L 100.0100, L503.6030, L503.6550 #### [facility] [address] [place], [address] Absolute Neut 1.9 X10 3/uL Low 2.0-7.7 [facility] Comment on above: Performed By: #### L 100.0100, L503.6030, L503.6550 #### [facility] [address] [place], [address] Basophils/100 WBC (Bld) 1.3 % High 0-1 [facility] Comment on above: Performed By: #### L 100.0100, L503.6030, L503.6550 #### [facility] [address] [place], [address] Eosinophils/100 WBC (Bld) 4.0 % Normal 0-5 [facility] Comment on above: Performed By: #### L 100.0100, L503.6030, L503.6550 #### [facility] [address] [place], [address] Erythrocyte distribution width (RBC) [Ratio] 15.0 % High 11.6-14.6 [facility] Comment on above: Performed By: #### L 100.0100, L503.6030, L503.6550 #### [facility] [address] [place], [address] Hematocrit (Bld) [Volume fraction] 33.8 % Low 37-47 [facility] Comment on above: Performed By: #### L 100.0100, L503.6030, L503.6550 #### [facility] [address] [place], [address] Hemoglobin (Bld) [Mass/Vol] 10.7 g/dL Low 12.0-15.0 [facility] Comment on above: Performed By: #### L 100.0100, L503.6030, L503.6550 #### [facility] [address] [place], [address] IG% 0.500 Normal 0.0-0.9 [facility] Comment on above: Result Comment: IG% - Immature Granulocytes (promyelocytes, myelocytes and metamyelocytes) > 1% indicates that a LEFT SHIFT is Present. Performed By: #### L 100.0100, L503.6030, L503.6550 #### [facility] [address] [place], [address] Lymphocytes/100 WBC (Bld) 33.3 % Normal 19-41 [facility] Comment on above: Performed By: #### L 100.0100, L503.6030, L503.6550 #### [facility] [address] [place], [address] MCH (RBC) [Entitic mass] 26.2 pg Low 27.0-32.0 [facility] Comment on above: Performed By: #### L 100.0100, L503.6030, L503.6550 #### [facility] [address] [place], [address] MCHC (RBC) [Mass/Vol] 31.7 g/dL Low 32-36 [facility] Comment on above: Performed By: #### L 100.0100, L503.6030, L503.6550 #### [facility] [address] [place], [address] MCV (RBC) [Entitic vol] 82.8 fL Normal 81-99 [facility] Comment on above: Performed By: #### L 100.0100, L503.6030, L503.6550 #### [facility] [address] [place], [address] Monocytes/100 WBC (Bld) 11.2 % High 0-10 [facility] Comment on above: Performed By: #### L 100.0100, L503.6030, L503.6550 #### [facility] [address] [place], [address] Neutrophils/100 WBC (Bld) 49.7 % Normal 47-70 [facility] Comment on above: Performed By: #### L 100.0100, L503.6030, L503.6550 #### [facility] [address] [place], [address] Nucleated RBC (Bld) [#/Vol] 0 10*3/uL Normal 0-5 [facility] Comment on above: Performed By: #### L 100.0100, L503.6030, L503.6550 #### [facility] [address] [place], [address] Platelet mean volume (Bld) [Entitic vol] 11.7 fL Normal 6.2-12.0 [facility] Comment on above: Performed By: #### L 100.0100, L503.6030, L503.6550 #### [facility] [address] [place], [address] Platelets (Bld) [#/Vol] 280 10*3/uL Normal 150-450 [facility] Comment on above: Performed By: #### L 100.0100, L503.6030, L503.6550 #### [facility] [address] [place], [address] RBC (Bld) [#/Vol] 4.08 10*6/uL Low 4.2-5.4 [facility] Comment on above: Performed By: #### L 100.0100, L503.6030, L503.6550 #### [facility] [address] [place], [address] RDW SD 43.8 fl Normal 35.1-43.9 [facility] Comment on above: Performed By: #### L 100.0100, L503.6030, L503.6550 #### [facility] [address] [place], [address] WBC (Bld) [#/Vol] 3.8 10*3/uL Low 4.4-11.0 [facility] Comment on above: Performed By: #### L 100.0100, L503.6030, L503.6550 #### [facility] [address] [place], [address] Calculated total iron bindin g capacityOrdered By: Patricio Moeller on 02-28-2025 Total Iron Binding Capacity 362 ug/dL 250-450 [facility] Eosinophil percentageOrdered By: Patricio Moeller on 02-28-2025 Eosinophils/100 WBC (Bld) 4.0 % 0-5 [facility] Erythrocyte distribution wid th (RBC) [Ratio]Ordered By: Patricio Moeller on 02-28-2025 Erythrocyte distribution width (RBC) [Entitic vol] 43.8 fL 35.1-43.9 [facility] Erythrocyte distribution wid th ratioOrdered By: Patricio Moeller on 02-28-2025 Erythrocyte distribution width (RBC) [Ratio] 15.0 % High 11.6-14.6 [facility] Erythrocyte distribution wid th standard deviationOrdered By: Patricio Moeller on 02-28-2025 Erythrocyte distribution width (RBC) [Ratio] 43.8 fl 35.1-43.9 [facility] Ferritinon 02-28-2025 Ferritin [Mass/Vol] 28 ng/mL Normal 22-378 [facility] Comment on above: Performed By: #### L 100.0100, L503.6030, L503.6550 #### [facility] [address] [place], [address] Hematocrit Auto (Bld) [Volum e fraction]Ordered By: Patricio Moeller on 02-28-2025 Hematocrit (Bld) [Volume fraction] 33.8 % Low 37-47 [facility] Hemoglobin measurementOrdere d By: Patricio Moeller on 02-28-2025 Hemoglobin (Bld) [Mass/Vol] 10.7 g/dL Low 12.0-15.0 [facility] Immature granulocytes/100 WB C Auto (Bld)Ordered By: Patricio Moeller on 02-28-2025 Immature granulocytes/100 WBC (Bld) 0.500 % 0.0-0.9 [facility] Comment on above: IG% - Immature Granu locytes (promyelocytes, myelocytes and metamyelocytes) > 1% indicates that a LEFT SHIFT is Present. Iron (Unsp spec) [Mass/Mass] Ordered By: Patricio Moeller on 02-28-2025 Iron [Mass/Vol] 28 ug/dL Low 50-170 [facility] Iron measurement (mass/mass) Ordered By: Patricio Moeller on 02-28-2025 Iron (Unsp spec) [Mass/Mass] 28 ug/dL Low 50-170 [facility] Iron saturation [Mass fracti on]Ordered By: Patricio Moeller on 02-28-2025 Iron Saturation 8.0 % Low 13-59 [facility] Iron+Iron Binding Capacityon 02-28-2025 Iron [Mass/Vol] 28 ug/dL Low 50-170 [facility] Comment on above: Performed By: #### L 100.0100, L503.6030, L503.6550 #### [facility] [address] [place], [address] IRON SATURATION 8.0 Low 13-59 [facility] Comment on above: Performed By: #### L 100.0100, L503.6030, L503.6550 #### [facility] [address] [place], [address] TIBC 362 ug/dL Normal 250-450 [facility] Comment on above: Performed By: #### L 100.0100, L503.6030, L503.6550 #### [facility] [address] [place], [address] UIBC 334 ug/dL Normal 228-428 [facility] Comment on above: Performed By: #### L 100.0100, L503.6030, L503.6550 #### [facility] [address] [place], [address] Lymphocytes Auto (Unsp spec) [#/Vol]Ordered By: Patricio Moeller on 02-28-2025 Lymphocytes (Bld) [#/Vol] 1.25 10*3/uL 0.83-4.51 [facility] Lymphocytes/100 WBC Auto (Un sp spec)Ordered By: Patricio Moeller on 02-28-2025 Lymphocytes/100 WBC (Bld) 33.3 % 19-41 [facility] MCV (mean corpuscular volume ) determinationOrdered By: Patricio Moeller on 02-28-2025 MCV (RBC) [Entitic vol] 82.8 fL 81-99 [facility] Mean corpuscular hemoglobin (MCH) determinationOrdered By: Patricio Moeller on 02-28-2025 MCH (RBC) [Entitic mass] 26.2 pg Low 27.0-32.0 [facility] Mean corpuscular hemoglobin concentration (MCHC) determinationOrdered By: Patricio Moeller on 02-28-2025 MCHC (RBC) [Mass/Vol] 31.7 g/dL Low 32-36 [facility] Mean platelet volume determi nationOrdered By: Patricio Moeller on 02-28-2025 Platelet mean volume (Bld) [Entitic vol] 11.7 fL 6.2-12.0 [facility] Monocyte percentageOrdered B y: Patricio Moeller on 02-28-2025 Monocytes/100 WBC (Bld) 11.2 % High 0-10 [facility] Neutrophil percentageOrdered By: Patricio Moeller on 02-28-2025 Neutrophils/100 WBC (Bld) 49.7 % 47-70 [facility] No Panel InformationOrdered By: Patricio Moeller on 02-28-2025 Unsaturated Iron Binding Capacity 334 ug/dL 228-428 [facility] Nucleated red blood cell per centageOrdered By: Patricio Moeller on 02-28-2025 Nucleated RBC/100 WBC (Bld) [Ratio] 0 % 0-5 [facility] Platelet countOrdered By: Zulma Moeller on 02-28-2025 Platelets (Bld) [#/Vol] 280 10*3/uL 150-450 [facility] RBC Auto (Bld) [#/Vol]Ordere d By: Patricio Moeller on 02-28-2025 RBC (Bld) [#/Vol] 4.08 10*6/uL Low 4.2-5.4 [facility] Serum or plasma ferritin venus surement (mass/volume)Ordered By: Patricio Moeller on 02-28-2025 Ferritin [Mass/Vol] 28 ng/mL 22-378 [facility] Serum or plasma iron saturat ion measurement (mass fraction)Ordered By: Patricio Moeller on 02-28-2025 Iron saturation [Mass fraction] 8.0 % Low 13-59 [facility] White blood cell (WBC) count Ordered By: Patricio Moeller on 02-28-2025 WBC (Bld) [#/Vol] 3.8 10*3/uL Low 4.4-11.0 [facility] 12 Lead EKGon 02-22-2025 12 Lead EKG [facility] [address] [place] [address] 12 Lead EKG 02/22/25 0819 MR#: [id number] Acct: [id number] Name: LANA ADAME Rep #: [id number] : 1985 39 From: Yessi Weiss MD Attending Dr: Dr. Tamra Abdullahi MD Status: MN E SD Ordering Dr: Piotr Munson MD Date: 02/22/25 [place] [facility] [place] Sex: F C Admitted: Test Reason : PRE OP Blood Pressure : */* mmHG Vent. Rate : 74 BPM Atrial Rate : 74 BPM P-R Int : 144 ms QRS Dur : 84 ms QT Int : 390 ms P-R-T Axes : 59 42 54 degrees QTcB Int : 432 ms Normal sinus rhythm Normal ECG Confirmed by Yessi Weiss ([id number]), order editor TOMER SHANKS ([id number]) on 02/22/2025 10:15:54 AM Referred By: Tamra Abdullahi Confirmed By: Yessi Weiss 02/22/25 1016 Date Yessi Weiss MD CC: Dr. Piotr Munson MD; Dr. Patricio Moeller MD; Dr. Tamra Abdullahi MD Signed Normal [facility] CBC W/Diff, Automatedon 02-07 Absolute Lymph 1.41 X10 3/uL Normal 0.83-4.51 [facility] Comment on above: Order Comment: Order Date: 02/16/25 Order Info: 0184-1 - CBCD Performed By: #### L 100.0100 #### [facility] [address] [place], [address] Absolute Neut 2.6 X10 3/uL Normal 2.0-7.7 [facility] Comment on above: Order Comment: Order Date: 02/16/25 Order Info: 0184-1 - CBCD Performed By: #### L 100.0100 #### [facility] [address] [place], [address] Basophils/100 WBC (Bld) 0.9 % Normal 0-1 [facility] Comment on above: Order Comment: Order Date: 02/16/25 Order Info: 0184-1 - CBCD Performed By: #### L 100.0100 #### [facility] [address] [place], [address] Eosinophils/100 WBC (Bld) 3.9 % Normal 0-5 [facility] Comment on above: Order Comment: Order Date: 02/16/25 Order Info: 0184- - CBCD Performed By: #### L 100.0100 #### [facility] [address] [place], [address] Erythrocyte distribution width (RBC) [Ratio] 14.1 % Normal 11.6-14.6 [facility] Comment on above: Order Comment: Order Date: 02/16/25 Order Info: 018- - CBCD Performed By: #### L 100.0100 #### [facility] [address] [place], [address] Hematocrit (Bld) [Volume fraction] 32.0 % Low 37-47 [facility] Comment on above: Order Comment: Order Date: 02/16/25 Order Info: 0184- - CBCD Performed By: #### L 100.0100 #### [facility] [address] [place], [address] Hemoglobin (Bld) [Mass/Vol] 9.9 g/dL Low 12.0-15.0 [facility] Comment on above: Order Comment: Order Date: 02/16/25 Order Info: 0184- - CBCD Performed By: #### L 100.0100 #### [facility] [address] [place], [address] IG% 0.200 Normal 0.0-0.9 [facility] Comment on above: Order Comment: Order Date: 02/16/25 Order Info: 0184- - CBCD Result Comment: IG% - Immature Granulocytes (promyelocytes, myelocytes and metamyelocytes) > 1% indicates that a LEFT SHIFT is Present. Performed By: #### L 100.0100 #### [facility] [address] [place], [address] Lymphocytes/100 WBC (Bld) 30.5 % Normal 19-41 [facility] Comment on above: Order Comment: Order Date: 02/16/25 Order Info: 0184-1 - CBCD Performed By: #### L 100.0100 #### [facility] [address] [place], [address] MCH (RBC) [Entitic mass] 25.6 pg Low 27.0-32.0 [facility] Comment on above: Order Comment: Order Date: 02/16/25 Order Info: 0184-1 - CBCD Performed By: #### L 100.0100 #### [facility] [address] [place], [address] MCHC (RBC) [Mass/Vol] 30.9 g/dL Low 32-36 [facility] Comment on above: Order Comment: Order Date: 02/16/25 Order Info: 0184-1 - CBCD Performed By: #### L 100.0100 #### [facility] [address] [place], [address] MCV (RBC) [Entitic vol] 82.7 fL Normal 81-99 [facility] Comment on above: Order Comment: Order Date: 02/16/25 Order Info: 0184-1 - CBCD Performed By: #### L 100.0100 #### [facility] [address] [place], [address] Monocytes/100 WBC (Bld) 7.6 % Normal 0-10 [facility] Comment on above: Order Comment: Order Date: 02/16/25 Order Info: 0184-1 - CBCD Performed By: #### L 100.0100 #### [facility] [address] [place], [address] Neutrophils/100 WBC (Bld) 56.9 % Normal 47-70 [facility] Comment on above: Order Comment: Order Date: 02/16/25 Order Info: 0184-1 - CBCD Performed By: #### L 100.0100 #### [facility] [address] [place], [address] Nucleated RBC (Bld) [#/Vol] 0 10*3/uL Normal 0-5 [facility] Comment on above: Order Comment: Order Date: 02/16/25 Order Info: 0184-1 - CBCD Performed By: #### L 100.0100 #### [facility] [address] [place], [address] Platelet mean volume (Bld) [Entitic vol] 11.6 fL Normal 6.2-12.0 [facility] Comment on above: Order Comment: Order Date: 02/16/25 Order Info: 0184-1 - CBCD Performed By: #### L 100.0100 #### [facility] [address] [place], [address] Platelets (Bld) [#/Vol] 291 10*3/uL Normal 150-450 [facility] Comment on above: Order Comment: Order Date: 02/16/25 Order Info: 0184-1 - CBCD Performed By: #### L 100.0100 #### [facility] [address] [place], [address] RBC (Bld) [#/Vol] 3.87 10*6/uL Low 4.2-5.4 [facility] Comment on above: Order Comment: Order Date: 02/16/25 Order Info: 0184-1 - CBCD Performed By: #### L 100.0100 #### [facility] [address] [place], [address] RDW SD 41.2 fl Normal 35.1-43.9 [facility] Comment on above: Order Comment: Order Date: 02/16/25 Order Info: 0184-1 - CBCD Performed By: #### L 100.0100 #### [facility] [address] [place], [place], [address] WBC (Bld) [#/Vol] 4.6 10*3/uL Normal 4.4-11.0 [facility] Comment on above: Order Comment: Order Date: 02/16/25 Order Info: 0184-1 - CBCD Performed By: #### L 100.0100 #### [facility] [address] [place], [address] MR/PAT.ANEon 02-22-2025 MR/PAT.ANE [facility] Medical Records Department [address] [place] [address] PAT - Anesthesia 02/22/25 1317 MR#: [id number] Acct: [id number] Name: LANA ADAME Rep #: [id number] : 1985 39 From: Piotr Munson MD PCP: Dr. 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 When Was Last Pacemaker Check QUESTION #4 FULL TEXT: You/Your Family Experience fever (hyperthermia) with Anesthesia Last Oral Intake Last Oral intake: Last Oral Intake NPO since Meds taken in AM with sips of water? 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 Female Yes 02/17/25 08:59 HX of Motion Sickness No 02/17/25 08:59 HX of N/V After Surgery No 02/17/25 08:59 Non-Smoker Yes 02/17/25 08:59 Duration of Surgery greater Yes 02/17/25 08:59 than 60 minutes Number of Risk Factors 3 02/17/25 08:59 PONV Score Moderate Risk 02/17/25 08:59 Height Weight Height Weight: Anesthesia: Height Weight Height 5 ft 2 in 02/01/25 11:40 Respiratory Assessment Respiratory Assessment - drivers' cash clerk: Respiratory Tract Infection Hx - drivers' cash clerk Hx Respiratory Tract Infection No 02/17/25 08:59 STOP Sleep Apnea 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 Has anyone observed you stop breathing during sleep? STOP Results Positive 02/17/25 08:59 QUESTION #5 FULL TEXT : Do you snore loudly (louder than talking or can be heard through closed doors)? 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 Specify any problems Hx of Preganancy in last 3 No 02/17/25 08:59 Months Nurse Filling Out Transfusion MGRIFFITH 02/17/25 08:59 Questions: Date: 02/17/25 02/17/25 08:59 Time: 09:03 02/17/25 08:59 Patient unable to answer at this time (ie. 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 Hx Now No 02/17/25 08:59 Gestational Age (in weeks): EDC: Hx Hx Para Hx Section SAB No 02/17/25 08:59 PFSH Medical History Former smoker Depression Anxiety Alcohol use Anemia Back pain Migraine headache CPAP (continuous positive airway pressure) dependence Shortness of breath on exertion History of echocardiogram Seizures Cardiology follow-up encounter Polycystic ovary Hormone deficiency Rectal discomfort Constipation Hepatic steatosis Obesity, morbid, BMI 40.0-49.9 Hypothyroidism Normal spontaneous vaginal delivery Home Medications ???Medication ???Instructions ???Recorded ???Last Taken ???Type bupropion HCl 300 mg 24 hr tablet, 300 mg PO QHS 07/30/22 Unknown H istory extended release lurasidone 80 mg tablet (Latuda) 20 mg PO QHS 12/06/24 Unknown Hist ory clonazepam 0.5 mg tablet 0.5 mg PO BID 12/07/24 Unknown His tory Diltiazem 2% / Lidocaine 5% #30 grams 01/04/25 Unknown Rx ointment (compound) ondansetron 4 mg disintegrating 4 mg PO Q4H PRN n (more content not included)... Normal [facility] Partial Thromboplast Timeon 02-22-2025 aPTT Coag (Bld) [Time] 29.4 s Normal 24.1-36.2 [facility] Comment on above: Performed By: #### L 300.8130, L300.4310 #### [facility] [address] [place], [place], [address] Plastic Surgery Visit Report on 02-22-2025 Plastic Surgery Visit Report [facility] [address], [address] [place] [address] OFFICE VISIT Date of Service: 02/22/25 MR#: [id number] Acct: [id number] Name: LANA ADAME Rep #: [id number] : 1985 Provider: Dr. Tamra pierre MD Age/Sex: 39/F Location: [facility] [place] Status: Signed Intake Vital Signs 02/01/25 11:40 02/08/25 14:22 02/22/25 13:15 Height 5 ft 2 in 5 ft 2 in Weight: 166 lb 165 lb BMI 30.3 BP 114/82 H 119/83 H Blood Pressure Location Lt brachial Lt brachial Position Sitting Sitting Respiration 18 18 Pulse 74 72 Pulse Source Monitor Temp 98.3 F Temp Source Temporal Pulse Oximetry (%) 98 97 Oxygen Delivery Method room air room air Intake Visit Reasons: pre op #2 abdominoplasty Chief Complaint: pre op#2 abdominoplasty Is patient in pain?: No Allergies bee venom protein (honey bee) Adverse Reaction (Severe, Verified 02/22/25 13:15) Anaphylaxis Medications ???Medication ???Instructions ???Recorded ???Confirmed ???Type bupropion HCl 300 mg 24 hr tablet, 300 mg PO QHS 07/30/22 02/22/25 History extended release lurasidone 80 mg tablet (Latuda) 20 mg PO QHS 12/06/24 02/22/25 His tory clonazepam 0.5 mg tablet 0.5 mg PO BID 12/07/24 02/22/25 Hi story Diltiazem 2% / Lidocaine 5% #30 grams 01/04/25 02/22/25 Rx ointment (compound) ondansetron 4 mg disintegrating 4 mg PO Q4H PRN nausea and vomitin g 01/30/25 02/22/25 History tablet cholecalciferol (vitamin D3) 50 4,000 unit PO DAILY 02/17/2502/22 History mcg (2,000 unit) capsule ferrous sulfate 325 mg (65 mg 325 mg PO QDAY 02/17/25 02/22/25 H istory iron) tablet (FeroSul) levothyroxine 100 mcg tablet 100 mcg PO DAILY 02/17/25 02/22/25 History magnesium oxide 500 mg capsule 500 mg PO DAILY 02/17/25 02/22/25 History multivitamin 1 tab PO DAILY 02/17/25 02/22/25 H istory cephalexin 500 mg capsule 500 mg PO BID #14 caps 02/22/25 Rx oxycodone-acetaminophen 5 mg-325 1 tab PO TID PRN pain 3 days #8 02/22/25 Rx mg tablet (Percocet) tab-caps PFSH Medical History Former smoker Depression Anxiety Alcohol use Anemia Back pain Migraine headache CPAP (continuous positive airway pressure) dependence Shortness of breath on exertion History of echocardiogram Seizures Cardiology follow-up encounter Polycystic ovary Hormone deficiency Rectal discomfort Constipation Hepatic steatosis Obesity, morbid, BMI 40.0-49.9 Hypothyroidism Normal spontaneous vaginal delivery Surgical History History of colonoscopy H/O hernia repair H/O gastric sleeve Family History Father Hypertension Obesity Mother Hypertension Obesity Grandfather Colon cancer Uncle Colon cancer Social History household members: spouse Smoking Status: Former smoker how long ago did patient quit smoking: quit 20 years ago alcohol intake: current substance use type: does not use what type of physical activity do you participate in: walking frequency: 1-2 times per week additional social history: pt denies vaping, denies edibles, denies marijuana uses aspirin and ibuprofen as needed HPI pre op #2 abdominoplasty Details: Lana comes in today for preop preparation regarding the upcoming abdominoplasty. She had blood work today with a slight elevation in her hemoglobin which was 9.9. She likely will have this checked again next week. She was able to take time off of work. She has brought her with her to the appointment. Exam Details Patient with an abdominal panniculus and atrophic skin. Several well-healed abdominal incisions. She has had 2 pregnancies through vaginal delivery. The procedure of abdominoplasty was reviewed with her and her including the expected pre-, intra-, postoperative course. The incisions and scars as well as limitations after surgery were reviewed. I did review that it would be essential for her hemoglobin to be at a higher level prior to surgery--she is taking iron as well as eating red meat. She states the anemia has been an issue for many years. The pre and postop instructions were reviewed item by item. Questions were answered during the course of that review. I reviewed the RAMIRO drain including recording the drainage as well as management. Prescriptions for Keflex and Percocet were called into her pharmacy and their use and precautions reviewed with her. The potential risk and complications of surgery were reviewed which include but are not exclusive of bleeding, infection, pain, numbness, asymmetry, scar tissue, skin necro (more content not included)... Normal [facility] Prothrombin Time w/INRon INR Coag (PPP) [Relative time] 1.1 {INR} Normal [facility] Comment on above: Performed By: #### L 300.3900, L300.4310 #### [facility] [address] [place], [address] PT Coag (PPP) [Time] 13.9 s Normal 11.7-14.9 [facility] Comment on above: Performed By: #### L 300.3900, L300.4310 #### [facility] [address] [place], [address] Absolute lymphocyte countOrd ered By: Patricio Moeller on 02-15-2025 Lymphocytes Auto (Unsp spec) [#/Vol] 1.77 10*3/uL 0.83-4.51 [facility] Absolute neutrophil countOrd ered By: Patricio Moeller on 02-15-2025 Neutrophils (Bld) [#/Vol] 4.9 10*3/uL 2.0-7.7 [facility] Anion gap in Serum or Plasma Ordered By: Patricio Moeller on 02-15-2025 Anion gap [Moles/Vol] 8 mmol/L 5-15 [facility] Automated lymphocyte count a s percentage of total leukocytesOrdered By: Patricio Moeller on 02-15-2025 Lymphocytes/100 WBC Auto (Unsp spec) 23.6 % 19-41 [facility] BUN/creatinine ratioOrdered By: Patricio Moeller on 02-15-2025 Urea nitrogen/Creatinine [Mass ratio] 10.5 mg/mg 10-20 [facility] Basophil percentageOrdered B y: Patricio Moeller on 02-15-2025 Basophils/100 WBC (Bld) 0.8 % 0-1 [facility] Bilirubin, totalOrdered By: Patricio Moeller on 02-15-2025 Bilirubin [Mass/Vol] mg/dL 0.00-1.30 [facility] CBC W/Diff, Automatedon 04- Absolute Lymph 1.77 X10 3/uL Normal 0.83-4.51 [facility] Comment on above: Performed By: #### L 100.0100, L503.6030, L503.6550 #### [facility] [address] [place], [address] Absolute Neut 4.9 X10 3/uL Normal 2.0-7.7 [facility] Comment on above: Performed By: #### L 100.0100, L503.6030, L503.6550 #### [facility] [address] [place], [address] Basophils/100 WBC (Bld) 0.8 % Normal 0-1 [facility] Comment on above: Performed By: #### L 100.0100, L503.6030, L503.6550 #### [facility] [address] [place], [address] Eosinophils/100 WBC (Bld) 2.3 % Normal 0-5 [facility] Comment on above: Performed By: #### L 100.0100, L503.6030, L503.6550 #### [facility] [address] [place], [address] Erythrocyte distribution width (RBC) [Ratio] 13.6 % Normal 11.6-14.6 [facility] Comment on above: Performed By: #### L 100.0100, L503.6030, L503.6550 #### [facility] [address] [place], [address] Hematocrit (Bld) [Volume fraction] 30.9 % Low 37-47 [facility] Comment on above: Performed By: #### L 100.0100, L503.6030, L503.6550 #### [facility] [address] [place], [address] Hemoglobin (Bld) [Mass/Vol] 9.6 g/dL Low 12.0-15.0 [facility] Comment on above: Performed By: #### L 100.0100, L503.6030, L503.6550 #### [facility] [address] [place], [address] IG% 0.400 Normal 0.0-0.9 [facility] Comment on above: Result Comment: IG% - Immature Granulocytes (promyelocytes, myelocytes and metamyelocytes) > 1% indicates that a LEFT SHIFT is Present. Performed By: #### L 100.0100, L503.6030, L503.6550 #### [facility] [address] [place], [address] Lymphocytes/100 WBC (Bld) 23.6 % Normal 19-41 [facility] Comment on above: Performed By: #### L 100.0100, L503.6030, L503.6550 #### [facility] [address] [place], [address] MCH (RBC) [Entitic mass] 25.4 pg Low 27.0-32.0 [facility] Comment on above: Performed By: #### L 100.0100, L503.6030, L503.6550 #### [facility] [address] [place], [address] MCHC (RBC) [Mass/Vol] 31.1 g/dL Low 32-36 [facility] Comment on above: Performed By: #### L 100.0100, L503.6030, L503.6550 #### [facility] [address] [place], [address] MCV (RBC) [Entitic vol] 81.7 fL Normal 81-99 [facility] Comment on above: Performed By: #### L 100.0100, L503.6030, L503.6550 #### [facility] [address] [place], [address] Monocytes/100 WBC (Bld) 7.2 % Normal 0-10 [facility] Comment on above: Performed By: #### L 100.0100, L503.6030, L503.6550 #### [facility] [address] [place], [address] Neutrophils/100 WBC (Bld) 65.7 % Normal 47-70 [facility] Comment on above: Performed By: #### L 100.0100, L503.6030, L503.6550 #### [facility] [address] [place], [address] Nucleated RBC (Bld) [#/Vol] 0 10*3/uL Normal 0-5 [facility] Comment on above: Performed By: #### L 100.0100, L503.6030, L503.6550 #### [facility] [address] [place], [address] Platelet mean volume (Bld) [Entitic vol] 12.0 fL Normal 6.2-12.0 [facility] Comment on above: Performed By: #### L 100.0100, L503.6030, L503.6550 #### [facility] [address] [place], [address] Platelets (Bld) [#/Vol] 303 10*3/uL Normal 150-450 [facility] Comment on above: Performed By: #### L 100.0100, L503.6030, L503.6550 #### [facility] [address] [place], [address] RBC (Bld) [#/Vol] 3.78 10*6/uL Low 4.2-5.4 [facility] Comment on above: Performed By: #### L 100.0100, L503.6030, L503.6550 #### [facility] [address] [place], [address] RDW SD 40.0 fl Normal 35.1-43.9 [facility] Comment on above: Performed By: #### L 100.0100, L503.6030, L503.6550 #### [facility] [address] [place], [address] WBC (Bld) [#/Vol] 7.5 10*3/uL Normal 4.4-11.0 [facility] Comment on above: Performed By: #### L 100.0100, L503.6030, L503.6550 #### [facility] [address] [place], [address] Carbon dioxide, total [Moles /volume] in Central venous bloodOrdered By: Patricio Moeller on 02-15-2025 CO2 [Moles/Vol] 24.2 mmol/L 21.0-32.0 [facility] Chloride assayOrdered By: Zulma Moeller on 02-15-2025 Chloride [Moles/Vol] 107 mmol/L 98-108 [facility] Comprehensive Metabolic Prof ilon 02-15-2025 Albumin [Mass/Vol] 3.9 g/dL Normal 3.5-5.0 [facility] Comment on above: Performed By: #### L 100.0100, L503.6030, L503.6550 #### [facility] [address] [place], [address] Albumin/Globulin [Mass ratio] 1.4 {ratio} Normal 0.9-2.4 [facility] Comment on above: Performed By: #### L 100.0100, L503.6030, L503.6550 #### [facility] [address] [place], [address] ALK PHOS 60 U/L Normal 35-104 [facility] Comment on above: Performed By: #### L 100.0100, L503.6030, L503.6550 #### [facility] [address] [place], [address] ALT [Catalytic activity/Vol] 10 U/L Normal <=34 [facility] Comment on above: Performed By: #### L 100.0100, L503.6030, L503.6550 #### [facility] [address] [place], [address] AST [Catalytic activity/Vol] 18 U/L Normal <=31 [facility] Comment on above: Performed By: #### L 100.0100, L503.6030, L503.6550 #### [facility] [address] [place], [address] BUN/CRE 10.5 RATIO Normal 10-20 [facility] Comment on above: Performed By: #### L 100.0100, L503.6030, L503.6550 #### [facility] [address] [place], [address] Calcium [Mass/Vol] 8.9 mg/dL Normal 7.6-11.0 [facility] Comment on above: Performed By: #### L 100.0100, L503.6030, L503.6550 #### [facility] [address] [place], [address] Chloride [Moles/Vol] 107 mmol/L Normal 98-108 [facility] Comment on above: Performed By: #### L 100.0100, L503.6030, L503.6550 #### [facility] [address] [place], [address] CO2 [Moles/Vol] 24.2 mmol/L Normal 21.0-32.0 [facility] Comment on above: Performed By: #### L 100.0100, L503.6030, L503.6550 #### [facility] [address] [place], [address] Creatinine [Mass/Vol] 1.04 mg/dL Normal 0.70-1.20 [facility] Comment on above: Performed By: #### L 100.0100, L503.6030, L503.6550 #### [facility] [address] [place], [address] GAP 8 Normal 5-15 [facility] Comment on above: Performed By: #### L 100.0100, L503.6030, L503.6550 #### [facility] [address] [place], [address] GFR/1.73 sq M.predicted among non-blacks MDRD (S/P/Bld) [Vol rate/Area] 70 mL/min/{1.73_m2} Normal >60 [facility] Comment on above: Result Comment: mL/m in/1.73m2 CKD-EPI Creatinine Equation (2020) Performed By: #### L 100.0100, L503.6030, L503.6550 #### [facility] [address] [place], [address] Globulin (S) [Mass/Vol] 2.8 g/dL Normal 2.2-4.2 [facility] Comment on above: Performed By: #### L 100.0100, L503.6030, L503.6550 #### [facility] [address] [place], [address] Glucose [Mass/Vol] 80 mg/dL Normal 70-99 [facility] Comment on above: Performed By: #### L 100.0100, L503.6030, L503.6550 #### [facility] [address] [place], [address] Potassium [Moles/Vol] 4.1 mmol/L Normal 3.3-5.1 [facility] Comment on above: Performed By: #### L 100.0100, L503.6030, L503.6550 #### [facility] [address] [place], [address] Sodium [Moles/Vol] 139 mmol/L Normal 133-145 [facility] Comment on above: Performed By: #### L 100.0100, L503.6030, L503.6550 #### [facility] [address] [place], [address] T BILI < 0.15 Normal 0.00-1.30 [facility] Comment on above: Performed By: #### L 100.0100, L503.6030, L503.6550 #### [facility] [address] [place], [address] T PROT 6.7 g/dL Normal 5.9-8.4 [facility] Comment on above: Performed By: #### L 100.0100, L503.6030, L503.6550 #### [facility] [address] [place], [address] Urea nitrogen [Mass/Vol] 11 mg/dL Normal 4-19 [facility] Comment on above: Performed By: #### L 100.0100, L503.6030, L503.6550 #### [facility] [address] [place], [address] Eosinophil percentageOrdered By: Patriico Moeller on 02-15-2025 Eosinophils/100 WBC (Bld) 2.3 % 0-5 [facility] Erythrocyte distribution wid th (RBC) [Ratio]Ordered By: Patricio Moeller on 02-15-2025 Erythrocyte distribution width (RBC) [Entitic vol] 40.0 fL 35.1-43.9 [facility] Erythrocyte distribution wid th ratioOrdered By: Patricio Moeller on 02-15-2025 Erythrocyte distribution width (RBC) [Ratio] 13.6 % 11.6-14.6 [facility] Erythrocyte distribution wid th standard deviationOrdered By: Patricio Moeller on 02-15-2025 Erythrocyte distribution width (RBC) [Ratio] 40.0 fl 35.1-43.9 [facility] Free T3on 02-15-2025 Free T3 [Mass/Vol] 2.3 pg/mL Normal 2.18-3.98 [facility] Comment on above: Performed By: #### L 100.0100, L503.6030, L503.6550 #### [facility] [address] [place], [address] Free [id number] By: Patricio kaur on 02-15-2025 Free T3 [Mass/Vol] 2.3 pg/mL 2.18-3.98 [facility] Free Triiodothyronine (T3) pg/dL 2.3 pg/mL 2.18-3.98 [facility] GFR/1.73 sq M.predicted sathish g non-blacks MDRD (S/P/Bld) [Vol rate/Area]Ordered By: Patricio Moeller on 02-15-2025 Estimated GFR (MDRD) Non-Af Amer 70 >60 [facility] Comment on above: mL/min/1.73m2 CKD-EP I Creatinine Equation (2020) Glomerular filtration rate ( GFR) estimation/1.73 sq m using serum, plasma, or whole bOrdered By: Patricio Moeller on 02-15-2025 GFR/1.73 sq M.predicted among non-blacks MDRD (S/P/Bld) [Vol rate/Area] 70 mL/min/{1.73_m2} >60 [facility] Comment on above: mL/min/1.73m2 CKD-EP I Creatinine Equation (2020) Hematocrit Auto (Bld) [Volum e fraction]Ordered By: Patricio Moeller on 02-15-2025 Hematocrit (Bld) [Volume fraction] 30.9 % Low 37-47 [facility] Hemoglobin measurementOrdere d By: Patricio Moeller on 02-15-2025 Hemoglobin (Bld) [Mass/Vol] 9.6 g/dL Low 12.0-15.0 [facility] Immature granulocytes/100 WB C Auto (Bld)Ordered By: Patricio Moeller on 02-15-2025 Immature granulocytes/100 WBC (Bld) 0.400 % 0.0-0.9 [facility] Comment on above: IG% - Immature Granu locytes (promyelocytes, myelocytes and metamyelocytes) > 1% indicates that a LEFT SHIFT is Present. Laboratory - Chemistry and C hemistry - challengeOrdered By: Patricio Moeller on 02-15-2025 AST [Catalytic activity/Vol] 18 U/L <32 [facility] Lymphocytes Auto (Unsp spec) [#/Vol]Ordered By: Patricio Moeller on 02-15-2025 Lymphocytes (Bld) [#/Vol] 1.77 10*3/uL 0.83-4.51 [facility] Lymphocytes/100 WBC Auto (Un sp spec)Ordered By: Patricio Moeller on 02-15-2025 Lymphocytes/100 WBC (Bld) 23.6 % 19-41 [facility] MCV (mean corpuscular volume ) determinationOrdered By: Patricio Moeller on 02-15-2025 MCV (RBC) [Entitic vol] 81.7 fL 81-99 [facility] Mean corpuscular hemoglobin (MCH) determinationOrdered By: Patricio Moeller on 02-15-2025 MCH (RBC) [Entitic mass] 25.4 pg Low 27.0-32.0 [facility] Mean corpuscular hemoglobin concentration (MCHC) determinationOrdered By: Patricio Moeller on 02-15-2025 MCHC (RBC) [Mass/Vol] 31.1 g/dL Low 32-36 [facility] Mean platelet volume determi nationOrdered By: Patricio Moeller on 02-15-2025 Platelet mean volume (Bld) [Entitic vol] 12.0 fL 6.2-12.0 [facility] Monocyte percentageOrdered B y: Patricio Moeller on 02-15-2025 Monocytes/100 WBC (Bld) 7.2 % 0-10 [facility] Neutrophil percentageOrdered By: Patricio Moeller on 02-15-2025 Neutrophils/100 WBC (Bld) 65.7 % 47-70 [facility] Nucleated red blood cell per centageOrdered By: Patricio Moeller on 02-15-2025 Nucleated RBC/100 WBC (Bld) [Ratio] 0 % 0-5 [facility] Platelet countOrdered By: Zulma Moeller on 02-15-2025 Platelets (Bld) [#/Vol] 303 10*3/uL 150-450 [facility] Potassium (Unsp spec) [Mass/ Vol]Ordered By: Patricio Moeller on 02-15-2025 Potassium [Moles/Vol] 4.1 mmol/L 3.3-5.1 [facility] Potassium measurement (mass/ volume)Ordered By: Patricio Moeller on 02-15-2025 Potassium (Unsp spec) [Mass/Vol] 4.1 mmol/L 3.3-5.1 [facility] RBC Auto (Bld) [#/Vol]Ordere d By: Patricio Moeller on 02-15-2025 RBC (Bld) [#/Vol] 3.78 10*6/uL Low 4.2-5.4 [facility] Serum creatinine measurement (mass/volume)Ordered By: Patricio Moeller on 02-15-2025 Creatinine [Mass/Vol] 1.04 mg/dL 0.70-1.20 [facility] Serum globulin measurementOr dered By: Patricio Moeller on 02-15-2025 Globulin (S) [Mass/Vol] 2.8 g/dL 2.2-4.2 [facility] Serum glucose measurement (m ass/volume)Ordered By: Patricio Moeller on 02-15-2025 Glucose [Mass/Vol] 80 mg/dL 70-99 [facility] Serum or plasma alanine dao otransferase (ALT) measurementOrdered By: Patricio Moeller on 02-15-2025 ALT [Catalytic activity/Vol] 10 U/L <35 [facility] Serum or plasma albumin alonso urement (mass/volume)Ordered By: Patricio Moeller on 02-15-2025 Albumin [Mass/Vol] 3.9 g/dL 3.5-5.0 [facility] Serum or plasma albumin/glob ulin mass ratioOrdered By: Patricio Moeller on 02-15-2025 Albumin/Globulin [Mass ratio] 1.4 {ratio} 0.9-2.4 [facility] Serum or plasma alkaline ann sphatase measurementOrdered By: Patricio Moeller on 02-15-2025 ALP [Catalytic activity/Vol] 60 U/L 35-104 [facility] Serum or plasma calcium alonso urement (mass/volume)Ordered By: Patricio Moeller on 02-15-2025 Calcium [Mass/Vol] 8.9 mg/dL 7.6-11.0 [facility] Serum or plasma urea nitroge n measurement (mass/volume)Ordered By: Patricio Moeller on 02-15-2025 Urea nitrogen [Mass/Vol] 11 mg/dL 4-19 [facility] Sodium levelOrdered By: Patricio Moeller on 02-15-2025 Sodium [Moles/Vol] 139 mmol/L 133-145 [facility] T4 Free Directon 02-15-2025 T4 FREE DIRECT 1.30 ng/dL Normal 0.76-1.46 [facility] Comment on above: Performed By: #### L 100.0100, L503.6030, L503.6550 #### [facility] [address] [place], [place], [id number] T4 freeOrdered By: Patricio kaur on 02-15-2025 Free T4 [Mass/Vol] 1.30 ng/dL 0.76-1.46 [facility] TSH DL <= 0.005 mIU/L QnOrde red By: Patricio Moeller on 02-15-2025 Thyroid Stimulating Hormone (TSH) 0.542 uIU/mL 0.300-4.20 0 [facility] TSH Qn 0.542 uIU/mL 0.300-4.20 0 [facility] Thyroid Stim Hormone (TSH)on 02-15-2025 TSH 0.542 uIU/mL Normal 0.300-4.20 0 [facility] Comment on above: Performed By: #### L 100.0100, L503.6030, L503.6550 #### [facility] [address] [place], [address] Total proteinOrdered By: Linda Moeller on 02-15-2025 Protein [Mass/Vol] 6.7 g/dL 5.9-8.4 [facility] White blood cell (WBC) count Ordered By: Patricio Moeller on 02-15-2025 WBC (Bld) [#/Vol] 7.5 10*3/uL 4.4-11.0 [facility] Plastic Surgery Visit Report on 02-08-2025 Plastic Surgery Visit Report [facility] Plastic Reconstructive Surgery [address], [address] [place], [place] [id number] OFFICE VISIT Date of Service: 02/08/25 MR#: [id number] Acct: [id number] Name: LANA ADAME Rep #: [id number] : 1985 Provider: Dr. Tamra pierre MD Age/Sex: 39/F Location: [facility] Status: Signed Intake Vital Signs 02/01/25 11:40 02/08/25 14:22 Height 5 ft 2 in 5 ft 2 in Weight: 166 lb BMI 30.3 BP 114/82 H Blood Pressure Location Lt brachial Position Sitting Respiration 18 Pulse 74 Temp 98.3 F Temp Source Temporal Pulse Oximetry (%) 98 Oxygen Delivery Method room air Intake Visit Reasons: pre op #1 abdominoplasty Chief Complaint: pre op#1 abdominoplasty Is patient in pain?: No Allergies bee venom protein (honey bee) Adverse Reaction (Severe, Verified 02/08/25 14:22) Anaphylaxis Medications ???Medication ???Instructions ???Recorded ???Confirmed ???Type bupropion HCl 300 mg 24 hr tablet, 300 mg PO DAILY 07/30/22 5 History extended release lurasidone 80 mg tablet (Latuda) 20 mg PO DAILY 12/06/24 02/08/25 H istory clonazepam 0.5 mg tablet 0.5 mg PO BID 12/07/24 02/08/25 Hi story levothyroxine 112 mcg tablet 100 mcg PO DAILY 12/07/24 02/08/25 History Diltiazem 2% / Lidocaine 5% #30 grams 01/04/25 02/08/25 Rx ointment (compound) ondansetron 4 mg disintegrating 4 mg PO Q4H PRN nausea and vomitin g 01/30/25 02/08/25 History tablet Nurse's Note: pt here for pre op #1 abdominoplasty PFSH Medical History Depression Anxiety Alcohol use Anemia Back pain Migraine headache Non-smoker CPAP (continuous positive airway pressure) dependence Shortness of breath on exertion History of echocardiogram Seizures Cardiology follow-up encounter Polycystic ovary Hormone deficiency Rectal discomfort Constipation Hepatic steatosis Obesity, morbid, BMI 40.0-49.9 Hypothyroidism Normal spontaneous vaginal delivery Surgical History H/O hernia repair H/O gastric sleeve Family History Father Hypertension Obesity Mother Hypertension Obesity Grandfather Colon cancer Uncle Colon cancer Social History household members: spouse Smoking Status: Former smoker how long ago did patient quit smoking: quit 20 years ago alcohol intake: current substance use type: does not use what type of physical activity do you participate in: walking frequency: 1-2 times per week additional social history: pt denies vaping, denies edibles, denies marijuana uses aspirin and ibuprofen as needed HPI pre op #1 abdominoplasty Details: Lana comes in for further preop preparation regarding the proposed abdominoplasty. She states she has determined that she can take up to 5 weeks off of work. Her previous abdominal surgeries include a gastric sleeve and a hiatal hernia that were done through laparoscopic approach at the same setting. Her medical history was reviewed. She is tentatively scheduled to see her PCP for medical clearance. She states that she does have help at home to help her during the postoperative recovery. Exam Details Patient with redundant skin and localized adiposity of the upper and lower abdomen. She has had a previous umbilical piercing which she did not wear and it has healed up without a sinus tract. Her previous laparoscopic incisions are well-healed. She has a palpable umbilical hernia without herniated contents. The procedure of abdominoplasty was reviewed with her including the incisions and scars as well as limitations after surgery. The expected pre-, intra-, postoperative course is reviewed. She is aware the surgery would be done as an outpatient, that she would have RAMIRO drains and afterward, and that we would be placing a Perez catheter during the procedure. She is aware of the physical limitations following surgery. She was given a packet of information review prior to the next appointment as well as a medical clearance form to take to her primary care provider. I will be seeing her back for further preop preparation when she has had a medical clearance. Const General: cooperative and healthy appearing Coding Level of Care Code Cosmetic Consult Diagnoses Atrophic skin L90.9 Localized adiposity of abdomen E65 Encounter for cosmetic surgery Z41.1 Assessment and Plan (No Qualifiers) Assessment and Plan (1) Atrophic skin: Status: Acute (2) Localized adiposity of abdomen: Status: Acute (3) Encounter for cosmetic surgery: Status: Acute Plan Details Additional Comments: We w (more content not included)... Normal [facility] Colonoscopy Reporton 025 Colonoscopy Report [facility] Medical Records Department [address] [place] [address] Colonoscopy Report MR#: [id number] Acct: [id number] Name: LANA ADAME Rep #: [id number] : 1985 39 From: Shon Rivera DO PCP: Dr. Patricio Moeller MD Status:[facility] Patient Name: Lana Adame Procedure Date: 02/01/2025 12:59 PM Date of : 1985 Age: 39 Procedure: Colonoscopy Indications: Lower abdominal pain, Change in bowel habits, Obstipation, Rectal pain Providers: Shon Rivera DO Referring MD: Patricio Moeller MD Medicines: Monitored Anesthesia Care Patient Profile: This is a 39 year old female. Refer to note in patient chart for documentation of history and physical. Last Colonoscopy: none. The patient's first colonoscopy is today. Complications: No immediate complications. Procedure: Pre-Anesthesia Assessment: - Prior to the procedure, a History and Physical was performed, and patient medications and allergies were reviewed. The patient is competent. The risks and benefits of the procedure and the sedation options and risks were discussed with the patient. All questions were answered and informed consent was obtained. Patient identification and proposed procedure were verified by the physician in the pre-procedure area. Mental Status Examination: alert and oriented. Airway Examination: normal oropharyngeal airway and neck mobility. Respiratory Examination: clear to auscultation. CV Examination: normal. ASA Grade Assessment: II - A patient with mild systemic disease. After reviewing the risks and benefits, the patient was deemed in satisfactory condition to undergo the procedure. The anesthesia plan was to use monitored anesthesia care (MAC). Immediately prior to administration of medications, the patient was re-assessed for adequacy to receive sedatives. The heart rate, respiratory rate, oxygen saturations, blood pressure, adequacy of pulmonary ventilation, and response to care were monitored throughout the procedure. The physical status of the patient was re-assessed after the procedure. After I obtained informed consent, the scope was passed under direct vision. Throughout the procedure, the patient's blood pressure, pulse, and oxygen saturations were monitored continuously. The Colonoscope was introduced through the anus and advanced to the terminal ileum. The colonoscopy was performed without difficulty. The patient tolerated the procedure well. The quality of the bowel preparation was good. The terminal ileum, ileocecal valve, appendiceal orifice, and rectum were photographed. Scope In: 1:13:02 PM Scope Withdrawal Time 0 hours 7 minutes 42 seconds Scope Out: 1:24:19 PM Total Procedure Duration Time 0 hours 11 minutes 17 seconds Findings: The perianal and digital rectal examinations were normal. Non-bleeding internal hemorrhoids were found during retroflexion. The hemorrhoids were Grade II (internal hemorrhoids that prolapse but reduce spontaneously). The endoscope was withdrawn. A hemorrhoid was isolated with anoscopy. The ShortShot ligator was positioned over the hemorrhoid at the left lateral position. Suction was applied and one rubber band was placed over the hemorrhoid. This was checked to make certain that the muscularis was free of the band. There were no complications. The colon (entire examined portion) appeared normal. Impression: - Non-bleeding internal hemorrhoids. Banded. - The entire examined colon is normal. - No specimens collected. Recommendation: - Discharge patient to home. - Resume previous diet. - Continue present medications. - Repeat colonoscopy in 10 years for screening purposes. Procedure Code(s): --- Professional --- 36642, Hemorrhoidectomy, internal, by rubber band ligation(s) 93323, Colonoscopy, flexible; diagnostic, including collection of specimen(s) by brushing or washing, when performed (separate procedure) CPT copyright 2021 [employer]. All rights reserved. The codes documented in this report are preliminary and upon seasoner hand review may be revised to meet current compliance requirements. Shon Rivera DO 02/01/2025 1:30:27 PM This report has been signed electronically. Number of Addenda: 0 Note Initiated On: 02/01/2025 12:59 PM 02/01/25 1330 Date Shon Iqbal Signature: Date (if indicated) CC: Dr. Patricio Moeller MD; Shon Rivera DO Date Dictated: 02/01/25 1259 Date Transcribed: Publishing Editor: RF Signed [facility] MR/POSTOP.ANE 02-01-2025 MR/POSTOP.[facility] Medical Records Department [address] [place] [address] Anesthesia Postop Eval I 02/01/25 1340 MR#: [id number] Acct: [id number] Name: LANA ADAME Rep #: [id number] : 1985 39 From: Orlando Leiva PCP: Dr. Patricio Moeller MD Status:REG SD Y Race: C Location: [place] [address] Anesthesia: Postop Eval I Current Vital Signs Temperature: 97.9 F Pulse Rate: 60 Blood Pressure: 91/49 Respiratory Rate: 12 Pulse Ox: 98 Oxygen Delivery Method: Room Air Assessment Airway patent: Yes Spontaneous unlabored respirations: Yes Mental status: Asleep nausea: No Vomiting: No Anesthesia Complication: No Fluid Hydration Crystalloid volume administer (ml): 40 Total IV fluid infused: 40 Progress Note Anesthesia document: Postop Eval 1 completed: Yes 02/01/25 1341 Date Orlando Spears Signature: Date CC: Signed [facility] MR/[id number] 02-01-2025 MR/POSTOPAN2 [facility] Medical Records Department [address] [place] [address] Anesthesia Postop Eval II 02/01/25 1429 MR#: [id number] Acct: [id number] Name: LANA ADAME Rep #: [id number] : 1985 39 From: Piotr Munson MD PCP: Dr. Patricio Moeller MD Status:[facility] Y Race: C Location: EN Anesthesia Postop Eval I Sum Postop Eval Completion status Anesthesia document: Postop Eval 1 completed: Yes Anesthesia Postop Eval I Summary Anesthesia Postop Eval I Summary: Anesthesia Postop Eval I: Assessment Summary Airway patent Yes 02/01/25 13:41 [email or web address] Spontaneous unlabored Yes 02/01/25 13:41 [email or web address] respirations Mental status Asleep 02/01/25 13:41 [email or web address] nausea No 02/01/25 13:41 [email or web address] Vomiting No 02/01/25 13:41 [email or web address] Anesthesia Postop Eval I: Fluid Summary Crystalloid volume administer 40 02/01/25 13:41 [email or web address] (ml) Colloids volume administered ( ml) Blood Product volume administered (ml) Total IV fluid infused 40 02/01/25 13:41 [email or web address] Anesthesia Postop Eval I: Summary Notes Anesthesia Complication No 02/01/25 13:41 [email or web address] Anesthesia Complication Comment: Post-operative progress note Anesthesia: Postop Eval II Evaluation Mental status: Awake Pain Level: 0 nausea: No Vomiting: No 02/01/25 1430 Date Piotr Munson MD Cosigner Signature: Date CC: Signed Normal [facility] ,Urineon 02-01-2025 Beta HCG ( test) Ql (U) Negative Normal [facility] Comment on above: Result Comment: Very dilute urine specimens, as indicated by a low specific gravity, may not contain new accounts representative levels of hCG. If is still suspected, a first morning urine specimen should be collected 48 hours later and tested. Performed By: #### L 400.7600 #### [facility] [address] [facility] [address] Urine testOrdered By: Jerome English on 02-01-2025 HCG ( test) Ql (U) Negative [facility] Comment on above: Very dilute urine sp ecimens, as indicated by a low specificgravity, may not contain new accounts representative levels of hCG. If is still suspected, a first morning urinespecimen should be collected 48 hours later and tested. Folates, RBCon 01-31-2025 Fol.,Hemolysate 339.0 ng/mL Normal Not Estab. [facility] Comment on above: Order Comment: Test( s) [id number], Whole Bloodwas developed and its performance characteristicsdetermined by [employer]. It has not been cleared or approvedby the Food and Drug Administration. Performed By: #### L 3300.8000, L500.4050, L3100.1725, L100.0100, L501.5200, L506.1001, L500.4100, L503.6150, L3300.9910, L503.0106, L503.6550 ####[facility] [address] [place], [address] Folate, RBC 950 ng/mL Normal >498 [facility] Comment on above: Order Comment: Test( s) [id number]-Gxdf, Whole Bloodwas developed and its performance characteristicsdetermined by [employer]. It has not been cleared or approvedby the Food and Drug Administration. Performed By: #### L 3300.8000, L500.4050, L3100.1725, L100.0100, L501.5200, L506.1001, L500.4100, L503.6150, L3300.9910, L503.0106, L503.6550 ####[facility] [address] [place], [address] Hematocrit (Bld) [Volume fraction] 35.7 % Normal 34.0-46.6 [facility] Comment on above: Order Comment: Test( s) [id number]-Ybyk, Whole Bloodwas developed and its performance characteristicsdetermined by [employer]. It has not been cleared or approvedby the Food and Drug Administration. Performed By: #### L 3300.8000, L500.4050, L3100.1725, L100.0100, L501.5200, L506.1001, L500.4100, L503.6150, L3300.9910, L503.0106, L503.6550 ####[facility] [address] [place], [address] Vitamin B1, Thiamineon 01-31 VIT B1 THIAMINE 94.0 nmol/L Normal 66.5-200.0 [facility] Comment on above: Order Comment: Test( s) [id number], Whole Bloodwas developed and its performance characteristicsdetermined by [employer]. It has not been cleared or approvedby the Food and Drug Administration. Result Comment: Perf ormed at: [address] [id number] Manager Farm: Cade Dang PhD, Phone: [phone] Performed at: [address] [id number] Manager Farm: Wade Bañuelos MD, Phone: [phone] Performed By: #### L 3300.8000, L500.4050, L3100.1725, L100.0100, L501.5200, L506.1001, L500.4100, L503.6150, L3300.9910, L503.0106, L503.6550 ####[facility] [address] [place], [address] Zinc, WHOLE BLOODon 02-01-20 Zinc Whole Bld 590 ug/dL Normal 440-860 [facility] Comment on above: Order Comment: Order Date: 03/01/25 Order Info: 0184-1 - CBCD Performed By: #### L 100.0100 #### [facility] [address] [place], [address] MR/PATNaheedSATINDERtanesha 01-30-2025 MR/SAVAGE.SATINDER [facility] Medical Records Department [address] [place] [address] PAT - Anesthesia 01/30/25 1453 MR#: [id number] Acct: [id number] Name: LANA ADAME Rep #: [id number] : 1985 39 From: Jerome English MD PCP: Dr. 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 When Was Last Pacemaker Check QUESTION #4 FULL TEXT: You/Your Family Experience fever (hyperthermia) with Anesthesia Last Oral Intake Last Oral intake: Last Oral Intake NPO since Meds taken in AM with sips of water? 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 Female Yes 01/30/25 11:46 HX of Motion Sickness No 01/30/25 11:46 HX of N/V After Surgery No 01/30/25 11:46 Non-Smoker Yes 01/30/25 11:46 Duration of Surgery greater No 01/30/25 11:46 than 60 minutes Number of Risk Factors 2 01/30/25 11:46 PONV Score Moderate Risk 01/30/25 11:46 Height Weight Height Weight: Anesthesia: Height Weight Height 5 ft 2 in 01/04/25 14:04 Respiratory Assessment Respiratory Assessment - drivers' cash clerk: Respiratory Tract Infection Hx - drivers' cash clerk Hx Respiratory Tract Infection Yes: SINUS COLD 01/30/25 11:46 STOP Sleep Apnea STOP Sleep Apnea - drivers' cash clerk: STOP Sleep Apnea - drivers' cash clerk Hx Hypertension No 01/30/25 11:46 Hx Sleep Apnea Yes 01/30/25 11:46 CPAP Yes 01/30/25 11:46 BIPAP No 01/30/25 11:46 Do you snore loudly (louder No 01/30/25 11:46 than talking or can be heard Do you often feel tired/ No 01/30/25 11:46 fatigued/ sleepy during daytime? Has anyone observed you stop No 01/30/25 11:46 breathing during sleep? STOP Results Positive 01/30/25 11:46 QUESTION #5 FULL TEXT : Do you snore loudly (louder than talking or can be heard through closed doors)? 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 Specify any problems Hx of Preganancy in last 3 No 01/30/25 11:46 Months Nurse Filling Out Transfusion DSCHRIBER 01/30/25 11:46 Questions: Date: 01/30/25 01/30/25 11:46 Time: 11:47 01/30/25 11:46 Patient unable to answer at this time (ie. 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 Hx Now No 01/30/25 11:46 Gestational Age (in weeks): EDC: Hx Hx Para Hx Section SAB No 01/30/25 11:46 PFSH Medical History (Updated 01/30/25 @ 11:52 by Juliana Contreras) Depression Anxiety Alcohol use Anemia Back pain Migraine headache Non-smoker CPAP (continuous positive airway pressure) dependence Shortness of breath on exertion History of echocardiogram Seizures Cardiology follow-up encounter Polycystic ovary Hormone deficiency Rectal discomfort Constipation Hepatic steatosis Obesity, morbid, BMI 40.0-49.9 Hypothyroidism Normal spontaneous vaginal delivery Home Medications ???Medication ???Instructions ???Recorded ???Last Taken ???Type bupropion HCl 300 mg 24 hr tablet, 300 mg PO DAILY 07/30/22 Unknown History extended release lurasidone 80 mg tablet (Latuda) 20 mg PO DAILY 12/06/24 Unknown Hi story clonazepam 0.5 mg tablet 0.5 mg PO BID 12/07/24 Unknown His tory levothyroxine 112 mcg tablet 100 mcg PO DAILY 12/07/24 Unknown History Diltiazem 2% / Lidocaine 5% #30 grams (more content not included)... Normal [facility] Rapid group A Streptococcus antigen assay at point of careOrdered By: Agustín Francis on 01-30-2025 S. pyogenes Ag IA.rapid Ql (Throat) Negative [facility] S. pyogenes Ag IA.rapid Ql ( Throat)Ordered By: Agustín Francis on 01-30-2025 S. pyogenes Ag IA Ql (Unsp spec) Negative [facility] Urgent Care Visit Reporton 0 01-30-2025 Urgent Care Visit Report [facility] [address], [address] [place] [address] OFFICE VISIT Date of Service: 01/30/25 MR#: [id number] Acct: [id number] Name: LANA ADAME Rep #: [id number] : 1985 Provider: ZULMA Rahman Age/Sex: 39/F Location: [facility] Status: Signed Intake Vital Signs 01/25/25 14:02 01/30/25 06:30 Height 5 ft 2 in 5 ft 2 in Weight: 165 lb 169 lb 2 oz BMI 30.2 30.9 BP 143/92 H 134/74 H Blood Pressure Location Lt brachial Rt brachial Position Sitting Sitting Respiration 18 16 Pulse 74 77 Pulse Source NIBP Temp 98.0 F 98.5 F Temp Source Temporal Oral Pulse Oximetry (%) 98 98 Oxygen Delivery Method room air room air Intake Visit Reasons: SORE THROAT Chief Complaint: ST, ear pain Painting Supervisor Required: No Is patient in pain?: Yes Allergies bee venom protein (honey bee) Adverse Reaction (Severe, Verified 01/30/25 06:31) Anaphylaxis Is last menstrual period known: No Post menopausal: No Patient : No Have you fallen in the past year?: No Nurse's Note: ST, ear pain since this morning. has had viral illness for several days. concern for strep PFSH Medical History Thyroid disease Seizures Polycystic ovary Hormone deficiency Frequent headaches Gastrointestinal problem Bladder catheter infection Back problem Rectal discomfort Depressive disorder Constipation GERD (gastroesophageal reflux disease) KARINE (obstructive sleep apnea) Hiatal hernia Hepatic steatosis Obesity, morbid, BMI 40.0-49.9 Hypothyroidism Normal spontaneous vaginal delivery Surgical History H/O hernia repair H/O gastric sleeve Family History Father Hypertension Obesity Mother Hypertension Obesity Grandfather Colon cancer Uncle Colon cancer Social History (Updated 01/25/25 @ 14:02 by Antonia Goldberg) household members: spouse Smoking Status: Former smoker how long ago did patient quit smoking: quit 20 years ago alcohol intake: current substance use type: does not use what type of physical activity do you participate in: walking frequency: 1-2 times per week additional social history: pt denies vaping, denies edibles, denies marijuana uses aspirin and ibuprofen as needed HPI HPI Chief Complaint: ST, ear pain Details: LANA ADAME, is a 39 F who presents to the office today for initial evaluation at the [facility] for approximately 2 to 3-day history of progressively worsening sore throat w/ clear pnd without swollen tender cervical lymph nodes in front of neck, AU pain, no cough, no fever. Painful swallowing appreciated though no difficulty swallowing/drooling. No rash. No complaints of chest pressure/shortness of breath/dyspnea on exertion. No close contacts with similar complaints. ???No egnc-fpc-jsipbei products taken to assist. Requesting POC screening for streptococcal pharyngitis. No other associated symptoms and no other alleviating/aggravating factors. ROS Const Constitutional: No other (As above) Exam Const General: cooperative, healthy appearing and no acute distress Orientation: alert, awake and oriented x3 [facility] Head: normal to inspection Ears: hearing grossly normal bilaterally, external ears normal, TM's normal bilaterally and EAC's normal Nose: external nose normal, nares normal, septum normal and no nasal discharge Face and sinus: normal facial exam, sinuses nontender and face symmetric Mouth: oral mucosae normal, lip normal, tongue normal and oropharynx normal Throat: posterior oropharynx normal, uvula midline, abnormal tonsil bilaterally trace erythema with no exudates and no hypertrophy, and clear postnasal drainage Eyes General: appearance normal, both eyes and all related structures Neck Neck: normal visual inspection, full ROM, no meningeal signs, supple and no lymphadenopathy Neck mass: No Thyroid: thyroid normal Chest Chest palpation inspection: normal inspection of the chest Resp Effort Inspection: normal respiratory effort and able to speak in complete sentences Auscultation: Bilateral: Clear to Auscultation Cardio Palpation: normal PMI Rate: regular rate Rhythm: regular rhythm Heart Sounds: S1 normal, S2 normal, no gallops, no murmurs and no rubs Pulses: radial pulses present Skin General: no rashes or lesions noted Neuro General: patient alert, patient awake and patient oriented x3 Cognition: normal cognition Speech: speech normal Psych Appearance: grossly normal Mental Status: mental status grossly normal Mood: congruent mood Affect: normal affect Speech and Movement: speech and movement normal Attitude: cooperative Diagnoses Acute pharyngitis J02.9 URI (more content not included)... Normal [facility] Absolute lymphocyte counton 01-25-2025 Lymphocytes Auto (Unsp spec) [#/Vol] 2.24 10*3/uL 0.83-4.51 [facility] Absolute neutrophil counton 01-25-2025 Neutrophils (Bld) [#/Vol] 2.0 10*3/uL 2.0-7.7 [facility] Anion gap in Serum or Plasma on 01-25-2025 Anion gap [Moles/Vol] 11 mmol/L 5-15 [facility] Automated lymphocyte count a s percentage of total leukocyteson 01-25-2025 Lymphocytes/100 WBC Auto (Unsp spec) 48.6 % High 19-41 [facility] BUN/creatinine ratioon 01-25 Urea nitrogen/Creatinine [Mass ratio] 8.1 mg/mg Low 10-20 [facility] Basophil percentageon 2024 Basophils/100 WBC (Bld) 0.9 % 0-1 [facility] Bilirubin, totalon Bilirubin [Mass/Vol] 0.26 mg/dL Normal 0.00-1.30 [facility] Comment on above: Performed By: #### L 3300.8000, L500.4050, L3100.1725, L100.0100, L501.5200, L506.1001, L500.4100, L503.6150, L3300.9910, L503.0106, L503.6550 ####[facility] [address] [place], [place], [phone] CBC W/Diff, Automatedon 01-07 Absolute Lymph 2.24 X10 3/uL Normal 0.83-4.51 [facility] Comment on above: Performed By: #### L 3300.8000, L500.4050, L3100.1725, L100.0100, L501.5200, L506.1001, L500.4100, L503.6150, L3300.9910, L503.0106, L503.6550 ####[facility] [address] [place], [place], [phone] Absolute Neut 2.0 X10 3/uL Normal 2.0-7.7 [facility] Comment on above: Performed By: #### L 3300.8000, L500.4050, L3100.1725, L100.0100, L501.5200, L506.1001, L500.4100, L503.6150, L3300.9910, L503.0106, L503.6550 ####[facility] [address] [place], [place], [phone] Basophils/100 WBC (Bld) 0.9 % Normal 0-1 [facility] Comment on above: Performed By: #### L 3300.8000, L500.4050, L3100.1725, L100.0100, L501.5200, L506.1001, L500.4100, L503.6150, L3300.9910, L503.0106, L503.6550 ####[facility] [address] [place], [place], [phone]) Eosinophils/100 WBC (Bld) 1.7 % Normal 0-5 [facility] Comment on above: Performed By: #### L 3300.8000, L500.4050, L3100.1725, L100.0100, L501.5200, L506.1001, L500.4100, L503.6150, L3300.9910, L503.0106, L503.6550 ####[facility] [address] [place], [place], [phone]) Erythrocyte distribution width (RBC) [Ratio] 12.9 % Normal 11.6-14.6 [facility] Comment on above: Performed By: #### L 3300.8000, L500.4050, L3100.1725, L100.0100, L501.5200, L506.1001, L500.4100, L503.6150, L3300.9910, L503.0106, L503.6550 ####[facility] [address] [place], [place], [phone]) Hematocrit (Bld) [Volume fraction] 35.2 % Low 37-47 [facility] Comment on above: Performed By: #### L 3300.8000, L500.4050, L3100.1725, L100.0100, L501.5200, L506.1001, L500.4100, L503.6150, L3300.9910, L503.0106, L503.6550 ####[facility] [address] [place], [phone]) Hemoglobin (Bld) [Mass/Vol] 11.0 g/dL Low 12.0-15.0 [facility] Comment on above: Performed By: #### L 3300.8000, L500.4050, L3100.1725, L100.0100, L501.5200, L506.1001, L500.4100, L503.6150, L3300.9910, L503.0106, L503.6550 ####[facility] [address] [place], [place], [phone] IG% 0.200 Normal 0.0-0.9 [facility] Comment on above: Result Comment: IG% - Immature Granulocytes (promyelocytes, myelocytes and metamyelocytes) > 1% indicates that a LEFT SHIFT is Present. Performed By: #### L 3300.8000, L500.4050, L3100.1725, L100.0100, L501.5200, L506.1001, L500.4100, L503.6150, L3300.9910, L503.0106, L503.6550 ####[facility] [address] [place], [place], [phone] Lymphocytes/100 WBC (Bld) 48.6 % High 19-41 [facility] Comment on above: Performed By: #### L 3300.8000, L500.4050, L3100.1725, L100.0100, L501.5200, L506.1001, L500.4100, L503.6150, L3300.9910, L503.0106, L503.6550 ####[facility] [address] [place], [place], [phone] MCH (RBC) [Entitic mass] 25.4 pg Low 27.0-32.0 [facility] Comment on above: Performed By: #### L 3300.8000, L500.4050, L3100.1725, L100.0100, L501.5200, L506.1001, L500.4100, L503.6150, L3300.9910, L503.0106, L503.6550 ####[facility] [address] [facility] [address] [place], [place], [phone] MCHC (RBC) [Mass/Vol] 31.3 g/dL Low 32-36 [facility] Comment on above: Performed By: #### L 3300.8000, L500.4050, L3100.1725, L100.0100, L501.5200, L506.1001, L500.4100, L503.6150, L3300.9910, L503.0106, L503.6550 ####[facility] [address] [place], [address] MCV (RBC) [Entitic vol] 81.3 fL Normal 81-99 [facility] Comment on above: Performed By: #### L 3300.8000, L500.4050, L3100.1725, L100.0100, L501.5200, L506.1001, L500.4100, L503.6150, L3300.9910, L503.0106, L503.6550 ####[facility] [address] [place], [address] Monocytes/100 WBC (Bld) 5.9 % Normal 0-10 [facility] Comment on above: Performed By: #### L 3300.8000, L500.4050, L3100.1725, L100.0100, L501.5200, L506.1001, L500.4100, L503.6150, L3300.9910, L503.0106, L503.6550 ####[facility] [address] [place], [address] Neutrophils/100 WBC (Bld) 42.7 % Low 47-70 [facility] Comment on above: Performed By: #### L 3300.8000, L500.4050, L3100.1725, L100.0100, L501.5200, L506.1001, L500.4100, L503.6150, L3300.9910, L503.0106, L503.6550 ####[facility] [address] [place], [place], [phone]) Nucleated RBC (Bld) [#/Vol] 0 10*3/uL Normal 0-5 [facility] Comment on above: Performed By: #### L 3300.8000, L500.4050, L3100.1725, L100.0100, L501.5200, L506.1001, L500.4100, L503.6150, L3300.9910, L503.0106, L503.6550 ####[facility] [address] [place], [place], [phone] Platelet mean volume (Bld) [Entitic vol] 11.6 fL Normal 6.2-12.0 [facility] Comment on above: Performed By: #### L 3300.8000, L500.4050, L3100.1725, L100.0100, L501.5200, L506.1001, L500.4100, L503.6150, L3300.9910, L503.0106, L503.6550 ####[facility] [address] [place], [place], [phone]) Platelets (Bld) [#/Vol] 322 10*3/uL Normal 150-450 [facility] Comment on above: Performed By: #### L 3300.8000, L500.4050, L3100.1725, L100.0100, L501.5200, L506.1001, L500.4100, L503.6150, L3300.9910, L503.0106, L503.6550 ####[facility] [address] [place], [place], [phone]) RBC (Bld) [#/Vol] 4.33 10*6/uL Normal 4.2-5.4 [facility] Comment on above: Performed By: #### L 3300.8000, L500.4050, L3100.1725, L100.0100, L501.5200, L506.1001, L500.4100, L503.6150, L3300.9910, L503.0106, L503.6550 ####[facility] [address] [facility] [place], [place], [phone] RDW SD 38.1 fl Normal 35.1-43.9 [facility] Comment on above: Performed By: #### L 3300.8000, L500.4050, L3100.1725, L100.0100, L501.5200, L506.1001, L500.4100, L503.6150, L3300.9910, L503.0106, L503.6550 ####[facility] [address] [place], [address] WBC (Bld) [#/Vol] 4.6 10*3/uL Normal 4.4-11.0 [facility] Comment on above: Performed By: #### L 3300.8000, L500.4050, L3100.1725, L100.0100, L501.5200, L506.1001, L500.4100, L503.6150, L3300.9910, L503.0106, L503.6550 ####[facility] [address] [place], [address] Calculated very low density lipoprotein (VLDL) cholesterol measurementon 01-25-2025 Calculated very low density lipoprotein (VLDL) cholesterol measurement 13 mg/dL [facility] VLDL Cholesterol 13 mg/dL [facility] Carbon dioxide, total [Moles /volume] in Central venous bloodon 01-25-2025 CO2 [Moles/Vol] 24.7 mmol/L Normal 21.0-32.0 [facility] Comment on above: Performed By: #### L 3300.8000, L500.4050, L3100.1725, L100.0100, L501.5200, L506.1001, L500.4100, L503.6150, L3300.9910, L503.0106, L503.6550 ####[facility] [address] [place], [address] Chloride assayon 01-25-2025 Chloride [Moles/Vol] 102 mmol/L Normal 98-108 [facility] Comment on above: Performed By: #### L 3300.8000, L500.4050, L3100.1725, L100.0100, L501.5200, L506.1001, L500.4100, L503.6150, L3300.9910, L503.0106, L503.6550 ####[facility] [address] [place], [place], [phone] Comprehensive Metabolic Prof ilon 01-25-2025 ALK PHOS 68 U/L Normal 35-104 [facility] Comment on above: Performed By: #### L 3300.8000, L500.4050, L3100.1725, L100.0100, L501.5200, L506.1001, L500.4100, L503.6150, L3300.9910, L503.0106, L503.6550 ####[facility] [address] [place], [place], [phone] BUN/CRE 8.1 RATIO Low 10-20 [facility] Comment on above: Performed By: #### L 3300.8000, L500.4050, L3100.1725, L100.0100, L501.5200, L506.1001, L500.4100, L503.6150, L3300.9910, L503.0106, L503.6550 ####[facility] [address] [place], [place], [phone] GAP 11 Normal 5-15 [facility] Comment on above: Performed By: #### L 3300.8000, L500.4050, L3100.1725, L100.0100, L501.5200, L506.1001, L500.4100, L503.6150, L3300.9910, L503.0106, L503.6550 ####[facility] [address] [place], [place], [phone] T PROT 7.7 g/dL Normal 5.9-8.4 [facility] Comment on above: Performed By: #### L 3300.8000, L500.4050, L3100.1725, L100.0100, L501.5200, L506.1001, L500.4100, L503.6150, L3300.9910, L503.0106, L503.6550 ####[facility] [address] [place], [place], [phone] AST [Catalytic activity/Vol] 19 U/L Normal <=31 [facility] Comment on above: Performed By: #### L 3300.8000, L500.4050, L3100.1725, L100.0100, L501.5200, L506.1001, L500.4100, L503.6150, L3300.9910, L503.0106, L503.6550 ####[facility] [address] [place], [place], [phone] Eosinophil percentageon 01-07 Eosinophils/100 WBC (Bld) 1.7 % 0-5 [facility] Erythrocyte distribution wid th ratioon 01-25-2025 Erythrocyte distribution width (RBC) [Ratio] 12.9 % 11.6-14.6 [facility] Erythrocyte distribution wid th standard deviationon 01-25-2025 Erythrocyte distribution width (RBC) [Entitic vol] 38.1 fL 35.1-43.9 [facility] Erythrocyte distribution width (RBC) [Ratio] 38.1 fl 35.1-43.9 [facility] Erythrocyte folate measureme nton 01-25-2025 RBC Folate Hemolysate 339.0 ng/mL Not Estab. Wo [facility] Red Blood Cell Folate 950 ng/mL >498 [facility] Erythrocyte folate measureme nt with hematocriton 01-25-2025 Hematocrit (Bld) [Volume fraction] 35.7 % 34.0-46.6 [facility] Ferritinon 01-25-2025 Ferritin [Mass/Vol] 16 ng/mL Low 22-378 [facility] Comment on above: Performed By: #### L 3300.8000, L500.4050, L3100.1725, L100.0100, L501.5200, L506.1001, L500.4100, L503.6150, L3300.9910, L503.0106, L503.6550 ####[facility] [address] [place], [place], [phone] GFR/1.73 sq M.predicted sathish g non-blacks MDRD (S/P/Bld) [Vol rate/Area]on 01-25-2025 Estimated GFR (MDRD) Non-Af Amer 72 >60 [facility] Comment on above: mL/min/1.73m2 CKD-EP I Creatinine Equation (2020) Glomerular filtration rate ( GFR) estimation/1.73 sq m using serum, plasma, or whole bon 01-25-2025 GFR/1.73 sq M.predicted among non-blacks MDRD (S/P/Bld) [Vol rate/Area] 72 mL/min/{1.73_m2} Normal >60 [facility] Comment on above: mL/min/1.73m2 CKD-EP I Creatinine Equation (2020) Result Comment: mL/m in/1.73m2 CKD-EPI Creatinine Equation (2020) Performed By: #### L 3300.8000, L500.4050, L3100.1725, L100.0100, L501.5200, L506.1001, L500.4100, L503.6150, L3300.9910, L503.0106, L503.6550 ####[facility] [address] [place], [address] Hematocrit Auto (Bld) [Volum e fraction]on 01-25-2025 Hematocrit (Bld) [Volume fraction] 35.2 % Low 37-47 [facility] Hemoglobin measurementon Hemoglobin (Bld) [Mass/Vol] 11.0 g/dL Low 12.0-15.0 [facility] Immature granulocytes/100 WB C Auto (Bld)on 01-25-2025 Immature granulocytes/100 WBC (Bld) 0.200 % 0.0-0.9 [facility] Comment on above: IG% - Immature Granu locytes (promyelocytes, myelocytes and metamyelocytes) > 1% indicates that a LEFT SHIFT is Present. Ironon 01-25-2025 Iron [Mass/Vol] 42 ug/dL Low 50-170 [facility] Comment on above: Performed By: #### L 3300.8000, L500.4050, L3100.1725, L100.0100, L501.5200, L506.1001, L500.4100, L503.6150, L3300.9910, L503.0106, L503.6550 ####[facility] [address] [place], [place], [phone] Iron (Unsp spec) [Mass/Mass] on 01-25-2025 Iron [Mass/Vol] 42 ug/dL Low 50-170 [facility] Iron measurement (mass/mass) on 01-25-2025 Iron (Unsp spec) [Mass/Mass] 42 ug/dL Low 50-170 [facility] L503.0106on 01-25-2025 Cobalamin (Vitamin B12) [Mass/Vol] 1004 pg/mL High 180-914 [facility] Comment on above: Performed By: #### L 3300.8000, L500.4050, L3100.1725, L100.0100, L501.5200, L506.1001, L500.4100, L503.6150, L3300.9910, L503.0106, L503.6550 ####[facility] [address] [place], [place], [phone] L506.1001on 01-25-2025 Vitamin D 25-OH 51.0 ng/mL Normal 30-100 [facility] Comment on above: Result Comment: Arlene min D Status Deficiency: <20 ng/mL (50nmol/L) Insufficiency: 20-30 ng/mL (50-75 nmol/L) Sufficiency: 30-100 ng/mL (75-250 nmol/L) Toxicity: >100 ng/mL (>250 nmol/L) Performed By: #### L 3300.8000, L500.4050, L3100.1725, L100.0100, L501.5200, L506.1001, L500.4100, L503.6150, L3300.9910, L503.0106, L503.6550 ####[facility] [address] [place], [place], [phone] LDL calc ser/plason 01-26-20 Cholesterol in LDL [Mass/Vol] 101 mg/dL Normal [facility] Comment on above: Gkqyvteipw=871-502 m g/dL & Higher Mxxx=805 mg/dL or greater Result Comment: Bord jiuqvk=677-904 mg/dL Higher Dedn=617 mg/dL or greater Performed By: #### L 3300.8000, L500.4050, L3100.1725, L100.0100, L501.5200, L506.1001, L500.4100, L503.6150, L3300.9910, L503.0106, L503.6550 ####[facility] [address] [place], [place], [phone] LDL Cholesterol, Calculated 101 mg/dL [facility] Comment on above: Fgpsqfdbbr=813-010 m g/dL & Higher Qrcp=214 mg/dL or greater Lipid Profileon 01-25-2025 CHOL:HDL 2.55 Normal [facility] Comment on above: Performed By: #### L 3300.8000, L500.4050, L3100.1725, L100.0100, L501.5200, L506.1001, L500.4100, L503.6150, L3300.9910, L503.0106, L503.6550 ####[facility] [address] [place], [address] Cholesterol in VLDL [Mass/Vol] 13 mg/dL Normal 5-40 [facility] Comment on above: Performed By: #### L 3300.8000, L500.4050, L3100.1725, L100.0100, L501.5200, L506.1001, L500.4100, L503.6150, L3300.9910, L503.0106, L503.6550 ####[facility] [address] [place], [place], [phone] Lymphocytes Auto (Unsp spec) [#/Vol]on 01-25-2025 Lymphocytes (Bld) [#/Vol] 2.24 10*3/uL 0.83-4.51 [facility] Lymphocytes/100 WBC Auto (Un sp spec)on 01-25-2025 Lymphocytes/100 WBC (Bld) 48.6 % High 19-41 [facility] MCV (mean corpuscular volume ) determinationon 01-25-2025 MCV (RBC) [Entitic vol] 81.3 fL 81-99 [facility] Magnesiumon 01-25-2025 Magnesium [Mass/Vol] 2.3 mg/dL High 1.5-2.2 [facility] Comment on above: Performed By: #### L 3300.8000, L500.4050, L3100.1725, L100.0100, L501.5200, L506.1001, L500.4100, L503.6150, L3300.9910, L503.0106, L503.6550 ####[facility] [address] [place], [place], [phone] Magnesium (Unsp spec) [Mass/ Vol]on 01-25-2025 Magnesium [Mass/Vol] 2.3 mg/dL High 1.5-2.2 [facility] Magnesium measurement (mass/ volume)on 01-25-2025 Magnesium (Unsp spec) [Mass/Vol] 2.3 mg/dL High 1.5-2.2 [facility] Mean corpuscular hemoglobin (MCH) determinationon 01-25-2025 MCH (RBC) [Entitic mass] 25.4 pg Low 27.0-32.0 [facility] Mean corpuscular hemoglobin concentration (MCHC) determinationon 01-25-2025 MCHC (RBC) [Mass/Vol] 31.3 g/dL Low 32-36 [facility] Mean platelet volume determi nationon 01-25-2025 Platelet mean volume (Bld) [Entitic vol] 11.6 fL 6.2-12.0 [facility] Monocyte percentageon 2024 Monocytes/100 WBC (Bld) 5.9 % 0-10 [facility] Neutrophil percentageon 01-07 Neutrophils/100 WBC (Bld) 42.7 % Low 47-70 [facility] Nucleated red blood cell per centageon 01-25-2025 Nucleated RBC/100 WBC (Bld) [Ratio] 0 % 0-5 [facility] Plastic Surgery Visit Report on 01-25-2025 Plastic Surgery Visit Report [facility] Plastic Reconstructive Surgery [address], [address] [place] [address] OFFICE VISIT Date of Service: 01/25/25 MR#: [id number] Acct: [id number] Name: LANA ADAME Rep #: [id number] : 1985 Provider: Dr. Tamra pierre MD Age/Sex: 39/F Location: [facility] Status: Signed Intake Vital Signs 01/04/25 14:04 01/25/25 14:02 Height 5 ft 2 in 5 ft 2 in Weight: 170 lb 4 oz 165 lb BMI 31.1 30.2 BP 135/88 H 143/92 H Blood Pressure Location Lt brachial Position Sitting Respiration 16 18 Pulse 62 74 Temp 98.0 F Temp Source Temporal Pulse Oximetry (%) 97 98 Oxygen Delivery Method room air room air Intake Visit Reasons: Abdominoplasty Chief Complaint: abdominoplasty consult Is patient in pain?: No Allergies bee venom protein (honey bee) Adverse Reaction (Severe, Verified 01/25/25 14:02) Anaphylaxis Medications ???Medication ???Instructions ???Recorded ???Confirmed ???Type bupropion HCl 300 mg 24 hr tablet, 450 mg PO DAILY 07/30/22 5 History extended release lurasidone 80 mg tablet (Latuda) 20 mg PO DAILY 12/06/24 01/25/25 H istory clonazepam 0.5 mg tablet 0.5 mg PO BID 12/07/24 01/25/25 Hi story levothyroxine 112 mcg tablet 100 mcg PO DAILY 12/07/24 01/25/25 History ondansetron 4 mg disintegrating 4 mg PO .COMPLEX #5 tabs 12/29/24 01/04/25 Rx tablet sodium sul 1.479 gram-potas ch See Rx Instructions PO PER PKG DIR 12/29/24 01/04/25 Rx 0.188 gram-magnes sul 0.225 gram #24 tabs tablet (Sutab) Diltiazem 2% / Lidocaine 5% #30 grams 01/04/25 01/04/25 Rx ointment (compound) Have you fallen in the past year?: No Nurse's Note: pt here for abdominoplasty consult, loss 90 lbs gastric sleeve PFS Medical History (Updated 01/25/25 @ 14:[address] Tamra Abdullahi MD) Thyroid disease Seizures Polycystic ovary Hormone deficiency Frequent headaches Gastrointestinal problem Bladder catheter infection Back problem Rectal discomfort Depressive disorder Constipation GERD (gastroesophageal reflux disease) KARINE (obstructive sleep apnea) Hiatal hernia Hepatic steatosis Obesity, morbid, BMI 40.0-49.9 Hypothyroidism Normal spontaneous vaginal delivery Surgical History (Updated 01/25/25 @ 13:56 by Antonia Goldberg) H/O hernia repair H/O gastric sleeve Family History Father Hypertension Obesity Mother Hypertension Obesity Grandfather Colon cancer Uncle Colon cancer Social History (Updated 01/25/25 @ 14:02 by Antonia Goldberg) household members: spouse Smoking Status: Former smoker how long ago did patient quit smoking: quit 20 years ago alcohol intake: current substance use type: does not use what type of physical activity do you participate in: walking frequency: 1-2 times per week additional social history: pt denies vaping, denies edibles, denies marijuana uses aspirin and ibuprofen as needed HPI Abdominoplasty Details: Lana is a 39-year-old female here for consideration of abdominoplasty. She has had 2 children through vaginal delivery, with the last delivery being in 2015. She had a gastric sleeve surgery along with a hiatal hernia repair in 12/2022 through laparoscopic approach resulting in approximately 100 pound weight loss. Her top weight was 265 pounds. She states her weight has plateaued at this point. She denies use of nicotine or marijuana products. She denies any further abdominal surgeries. ROS General General: Yes good health; No fatigue, fever(s) or weight loss HENMT HENMT: No rhinitis, sore throat/mouth sore, nasal congestion, contacts or glaucoma Endo Endocrine: Yes thyroid disease; No polydipsia, heat intolerance, cold intolerance, hepatitis or excessive urine Skin Skin: No Bleeding, bruising, changing moles or suspicious lesion Musc Musculoskeletal: Yes back pain; No joint pain, joint stiffness, muscle weakness, osteoarthritis or Muscle aches/ myalgia Neuro Neurological: Yes headache(s), No lightheadedness and No numbness Cardio Cardiovascular: No chest pain, pacemaker, fatigue or shortness of breat with exertion Psych Psychiatric: Yes depression; No claustrophobia or anxiety Resp Respiratory: Yes sleep apnea; No spitting up, shortness of breath, asthma, emphysema, TB, Cough or Smoker Gastro Gastrointestinal: Yes constipation; No diarrhea, blood in stool, nausea, vomiting or abdominal bloating Hany Hematologic: No anemia, No bleeding and No abnormal bleeding Genitourinary: No urinary frequency, blood in urine or incontinence Exam Details Patient with small panniculus of the lower abdomen. There is a small palpable umbilical hernia. There is evidence of muscle diastases. She has well-heal (more content not included)... Normal [facility] Platelet counton 01-25-2025 Platelets (Bld) [#/Vol] 322 10*3/uL 150-450 [facility] Potassium measurement (mass/ volume)on 01-25-2025 Potassium (Unsp spec) [Mass/Vol] 4.1 mmol/L 3.3-5.1 [facility] Potassium [Moles/Vol] 4.1 mmol/L Normal 3.3-5.1 [facility] Comment on above: Performed By: #### L 3300.8000, L500.4050, L3100.1725, L100.0100, L501.5200, L506.1001, L500.4100, L503.6150, L3300.9910, L503.0106, L503.6550 ####[facility] [address] [place], [place], [phone] RBC Auto (Bld) [#/Vol]on RBC (Bld) [#/Vol] 4.33 10*6/uL 4.2-5.4 [facility] Screening total cholesterol/ high density lipoprotein (HDL) cholesterol ratioon 01-25-2025 Cholesterol.total/Chol esterol in HDL [Mass ratio] 2.55 {ratio} [facility] Serum creatinine measurement (mass/volume)on 01-25-2025 Creatinine [Mass/Vol] 1.02 mg/dL Normal 0.70-1.20 [facility] Comment on above: Performed By: #### L 3300.8000, L500.4050, L3100.1725, L100.0100, L501.5200, L506.1001, L500.4100, L503.6150, L3300.9910, L503.0106, L503.6550 ####[facility] [address] [place], [place], [phone] Serum globulin measurementon 01-25-2025 Globulin (S) [Mass/Vol] 3.3 g/dL Normal 2.2-4.2 [facility] Comment on above: Performed By: #### L 3300.8000, L500.4050, L3100.1725, L100.0100, L501.5200, L506.1001, L500.4100, L503.6150, L3300.9910, L503.0106, L503.6550 ####[facility] [address] [place], [address] Serum glucose measurement (m ass/volume)on 01-25-2025 Glucose [Mass/Vol] 75 mg/dL Normal 70-99 [facility] Comment on above: Performed By: #### L 3300.8000, L500.4050, L3100.1725, L100.0100, L501.5200, L506.1001, L500.4100, L503.6150, L3300.9910, L503.0106, L503.6550 ####[facility] [address] [place], [place], [phone] Serum or plasma alanine dao otransferase (ALT) measurementon 01-25-2025 ALT [Catalytic activity/Vol] 10 U/L Normal <=34 [facility] Comment on above: Performed By: #### L 3300.8000, L500.4050, L3100.1725, L100.0100, L501.5200, L506.1001, L500.4100, L503.6150, L3300.9910, L503.0106, L503.6550 ####[facility] [address] [place], [address] Serum or plasma albumin alonso urement (mass/volume)on 01-25-2025 Albumin [Mass/Vol] 4.4 g/dL Normal 3.5-5.0 [facility] Comment on above: Performed By: #### L 3300.8000, L500.4050, L3100.1725, L100.0100, L501.5200, L506.1001, L500.4100, L503.6150, L3300.9910, L503.0106, L503.6550 ####[facility] [address] [place], [place], [phone] Serum or plasma albumin/glob ulin mass ratioon 01-25-2025 Albumin/Globulin [Mass ratio] 1.3 {ratio} Normal 0.9-2.4 [facility] Comment on above: Performed By: #### L 3300.8000, L500.4050, L3100.1725, L100.0100, L501.5200, L506.1001, L500.4100, L503.6150, L3300.9910, L503.0106, L503.6550 ####[facility] [address] [place], [place], [phone] Serum or plasma alkaline ann sphatase measurementon 01-25-2025 ALP [Catalytic activity/Vol] 68 U/L 35-104 [facility] Serum or plasma calcium alonso urement (mass/volume)on 01-25-2025 Calcium [Mass/Vol] 9.4 mg/dL Normal 7.6-11.0 [facility] Comment on above: Performed By: #### L 3300.8000, L500.4050, L3100.1725, L100.0100, L501.5200, L506.1001, L500.4100, L503.6150, L3300.9910, L503.0106, L503.6550 ####[facility] [address] [place], [place], [phone] Serum or plasma cholesterol in HDL measurement (mass/volume)on 01-25-2025 Cholesterol in HDL [Mass/Vol] 73 mg/dL Normal [facility] Comment on above: National Cholesterol Education Program (NCEP) guidelines:<40 mg/dL: Low HDL-cholesterol (major risk factor for CHD)>= 60 mg/dL: High HDL-cholesterol (negative risk factor for CHD)HDL-cholesterol is affected by a number of factors, e.g. smoking, exercise, hormones, sex and age. Result Comment: Tyra onal Cholesterol Education Program (NCEP) guidelines: <40 mg/dL: Low HDL-cholesterol (major risk factor for CHD) >= 60 mg/dL: High HDL-cholesterol (negative risk factor for CHD) HDL-cholesterol is affected by a number of factors, e.g. smoking, exercise, hormones, sex and age. Performed By: #### L 3300.8000, L500.4050, L3100.1725, L100.0100, L501.5200, L506.1001, L500.4100, L503.6150, L3300.9910, L503.0106, L503.6550 ####[facility] [address] [place], [place], [phone] Serum or plasma cholesterol measurement (mass/volume)on 01-25-2025 Cholesterol [Mass/Vol] 186 mg/dL Normal <=200 [facility] Comment on above: Cholesterol level, D esirable <200 mg/dLBorderline high cholesterol 200-239 mg/dLHigh cholesterol >=240 mg/dLRecommendations of the NCEP Adult Treatment Panel for the following risk-cutoff thresholds for the [place] population. Result Comment: Chol esterol level, Desirable <200 mg/dL Borderline high cholesterol 200-239 mg/dL High cholesterol >=240 mg/dL Recommendations of the NCEP Adult Treatment Panel for the following risk-cutoff thresholds for the [place] population. Performed By: #### L 3300.8000, L500.4050, L3100.1725, L100.0100, L501.5200, L506.1001, L500.4100, L503.6150, L3300.9910, L503.0106, L503.6550 ####[facility] [address] [place], [address] Serum or plasma ferritin venus surement (mass/volume)on 01-25-2025 Ferritin [Mass/Vol] 16 ng/mL Low 22-378 [facility] Serum or plasma thiamine venus surement (mass/volume)on 01-25-2025 Thiamine [Mass/Vol] 94.0 nmol/L 66.5-200.0 [facility] Comment on above: Performed at: - [address] [id number] Director: Cade Dang PhD, Phone: [phone] at: - [facility] [id number] Director: Wade Bañuelos MD, Phone: [phone] Serum or plasma urea nitroge n measurement (mass/volume)on 01-25-2025 Urea nitrogen [Mass/Vol] 8 mg/dL Normal 02-25 [facility] Comment on above: Performed By: #### L 3300.8000, L500.4050, L3100.1725, L100.0100, L501.5200, L506.1001, L500.4100, L503.6150, L3300.9910, L503.0106, L503.6550 ####[facility] [address] [place], [place], [address] Sodium levelon 01-25-2025 Sodium [Moles/Vol] 138 mmol/L Normal 133-145 [facility] Comment on above: Performed By: #### L 3300.8000, L500.4050, L3100.1725, L100.0100, L501.5200, L506.1001, L500.4100, L503.6150, L3300.9910, L503.0106, L503.6550 ####[facility] [address] [place], [place], [phone] Thiamine [Mass/Vol]on 2024 Whole Blood Vitamin B1 Level 94.0 nmol/L 66.5-200.0 [facility] Comment on above: Performed at: [address] [id number] Director: Cade Dang PhD, Phone: [phone] at: [facility] [address] [id number] Director: Wade Bañuelos MD, Phone: [phone] Total proteinon 01-25-2025 Protein [Mass/Vol] 7.7 g/dL 5.9-8.4 [facility] Triglycerides measurementon 01-25-2025 Triglyceride [Mass/Vol] 63 mg/dL Normal [facility] Comment on above: The drugs N-Acetylcy steine and Metamizole may falsely depress this assay. Normal range: <150 mg/dLBorderline High: 150-199 mg/dLHigh: 200-499 mg/dLVery High: >500 mg/dL Result Comment: The drugs N-Acetylcysteine and Metamizole may falsely depress this assay. Normal range: <150 mg/dL Borderline High: 150-199 mg/dL High: 200-499 mg/dL Very High: >500 mg/dL Performed By: #### L 3300.8000, L500.4050, L3100.1725, L100.0100, L501.5200, L506.1001, L500.4100, L503.6150, L3300.9910, L503.0106, L503.6550 ####[facility] [address] [place], [address] Vitamin B12 ser/plason 01-25 Cobalamin (Vitamin B12) [Mass/Vol] 1004 pg/mL High 180-914 [facility] Vitamin D, 25-hydroxyon 01-07 Vitamin D 25-Hydroxy 51.0 ng/mL 30-100 [facility] Comment on above: Vitamin D StatusDefi ciency: <20 ng/mL (50nmol/L)Insufficiency: 20-30 ng/mL (50-75 nmol/L)Sufficiency: 30-100 ng/mL (75-250 nmol/L)Toxicity: >100 ng/mL (>250 nmol/L) White blood cell (WBC) count on 01-25-2025 WBC (Bld) [#/Vol] 4.6 10*3/uL 4.4-11.0 [facility] Zinc WBon 01-25-2025 Whole Blood Zinc 590 ug/dL 440-860 [facility] Office Visiton 01-16-2025 Follow-up visit [id number] Lana Adame 1985 F Date Provider Department Center 01/16/2025 [id number] WT None Family History Problem Relation Age of Onset Hypertension Father Hypertension Mother Obesity Mother Cancer Paternal Grandfather Comments: LUNG Obesity Maternal Grandfather Hypertension Maternal Grandfather Obesity Father Stroke Maternal Grandfather Obesity Paternal Grandfather Family Status - Relation Status Age at Father Mother Paternal Grandfather Maternal Grandfather Level of Service:66634 [place] OFFICE/OUTPATIENT ESTABLISHED LOW MDM 20 MIN Reason for Visit and Comments: Bariatrics Post Op Follow-up [884] - 24M [facility] Progress Noteon 01-16-2025 Progress Note BARIATRIC CARE PORFIRIO STEVENS NOTE POST WEIGHT LOSS SURGERY FOLLOW UP Patient: Lana Adame Service Date: 01/16/2025 Patient is 2 year(s) s/p Sleeve Gastrectomy Today's Metrics: Post-Surgical Weight Loss Date: 01/16/25 Height: 5' 2.5" (158.8 cm) Weight: 168 lb 6.4 oz (76.4 kg) BMI: 30.31 Weight Change: -4 lbs Total Weight Change: -89.4 lbs % EBWL: 64% Comments: 24M POP Post-op Weight Metrics: Post-Surgical Weight Loss Date: 01/16/25 Height: 5' 2.5" (158.8 cm) Weight: 168 lb 6.4 oz (76.4 kg) BMI: 30.31 Weight Change: -4 lbs Total Weight Change: -89.4 lbs % EBWL: 64% Comments: 24M POP (From Surgical Weight Loss Tracker) Patient has the following questions: EATING 4-5 Pain: Patient rates pain on scale 0-10 as: 0 Exercise Compliance: Exercising: yes If yes: Type: walking Times per week: 5 Min per session: 30 Falls Risk Assessment Patient does take medications which affect BP or mental status Patient does not t have newly prescribed or changed dosage of medications within past 30 days which affect BP or mental status Patient has not fallen in the past 2 months Patient does not t demonstrate unsteady gait Patient uses the following ambulatory assistive devices: NONE Patient states the presence of the following traits which increases risk of fall: NONE Patient is not on home O2 Pre-op Weight Metrics: Labs Completed: yes - If NO, patient instructed to get labs drawn today or [facility] YES[facility] If yes see Labs Tab Labs completed at [facility] facility? no If yes see Encounters Tab - Orders only - Historical Provider - Date: 05/23/24 Completed by: Alondra Caro MA [facility] Gastroenterology Visit Repor ton 01-04-2025 Gastroenterology Visit Report [facility] Gastroenter[facility] [address] [place] [address] OFFICE VISIT Date of Service: 01/04/25 MR#: [id number] Acct: [id number] Name: LANA ADAME Rep #: [id number] : 1985 Provider: CUBA santa Age/Sex: 39/F Location: [facility] Status: Signed Intake Vital Signs 07/30/22 13:52 01/04/25 14:04 Height 5 ft 2 in 5 ft 2 in Weight: 170 lb 4 oz BMI 31.1 BP 135/88 H Respiration 16 Pulse 62 Pulse Oximetry (%) 97 Oxygen Delivery Method room air Intake Visit Reasons: 1 M FU Chief Complaint: rectal pain Painting Supervisor Required: No Is patient in pain?: No Allergies bee venom protein (honey bee) Adverse Reaction (Severe, Verified 01/04/25 14:03) Anaphylaxis Medications ???Medication ???Instructions ???Recorded ???Confirmed ???Type bupropion HCl 300 mg 24 hr tablet, 450 mg PO DAILY 07/30/22 5 History extended release lurasidone 80 mg tablet (Latuda) 20 mg PO DAILY 12/06/24 01/04/25 H istory clonazepam 0.5 mg tablet 0.5 mg PO BID 12/07/24 01/04/25 Hi story levothyroxine 112 mcg tablet 100 mcg PO DAILY 12/07/24 01/04/25 History ondansetron 4 mg disintegrating 4 mg PO .COMPLEX #5 tabs 12/29/24 01/04/25 Rx tablet sodium sul 1.479 gram-potas ch See Rx Instructions PO PER PKG DIR 12/29/24 01/04/25 Rx 0.188 gram-magnes sul 0.225 gram #24 tabs tablet (Sutab) Diltiazem 2% / Lidocaine 5% #30 grams 01/04/25 01/04/25 Rx ointment (compound) PFSH Medical History Rectal discomfort Depressive disorder Constipation GERD (gastroesophageal reflux disease) KARINE (obstructive sleep apnea) Hiatal hernia Hepatic steatosis Obesity, morbid, BMI 40.0-49.9 Hypothyroidism Normal spontaneous vaginal delivery Surgical History H/O gastric sleeve Family History Father Hypertension Obesity Mother Hypertension Obesity Grandfather Colon cancer Uncle Colon cancer Social History household members: spouse Smoking Status: Never smoker alcohol intake: current substance use type: does not use what type of physical activity do you participate in: walking frequency: 1-2 times per week HPI HPI Chief Complaint: rectal pain Details: LANA ADAME, is a 39 F who presents to the office today for OV 12/07/2024 39y/o female presents for consultation with complaints of rectal pressure/tenesmus immediately post BM. She denies any change in bowel habits, weight loss, pain or bleeding. DRT revealed internal hemorrhoid at 3 o'clock and 6 o'clock with mild discomfort at 3 o'clock. I have prescribed anusol supp. x7 days. She will follow-up in one month. Patient Instructions: Anusol supp x7 days at HS F/U one month, if symptoms are persisting will schedule colonoscopy with banding - 1 BM daily, denies any straining - denies any bleeding - denies any abdominal pain - denies any family h/o colon CA - stools are soft formed - no improvement with Anusol suppositories ROS Const Constitutional: Positive for headache(s); No fatigue, fever(s) or weight change ENT ENT: Positive for headache(s); No difficulty swallowing Gastro GI: No abdominal pain, belching, bloating, change in bowel habits, change in stool character, coffee ground emesis, constipation, cramping, diarrhea, heartburn, difficulty swallowing, feeling full early, excessive flatus, incontinent of stools, Vomiting blood/hematemesis, Blood in stool, loose stools, Black,tarry stools, nausea/dyspepsia, pain with swallowing, vomiting or other Musc Musculoskeletal: Positive for back pain and stiffness; No joint pain Skin Skin: Positive for dry skin; No yellowing of the eye or itchy eyes Neuro Neurology: Positive for headache(s) Psych Psychiatric: Positive for anxiety and No depression Endo Endocrine: No fatigue or weight change Aller/Imm Allergy/Immunologic: No itchy eyes Hany/Lymp Hematologic/Lymphatic: No easy bleeding or easy bruising Exam Const General: cooperative, healthy appearing, no acute distress and well developed Nutritional Appearance: average body habitus and well nourished Orientation: alert and oriented x3 HENMT Head: normocephalic Ears: hearing grossly normal bilaterally Mouth: moist mucous membranes Teeth and gingiva: dentition normal Eyes Conjunctivae: conjunctivae normal Sclera: sclerae normal Neck Neck: normal visual inspection, full ROM and trachea midline Resp Effort Inspection: normal respiratory effort, able to speak in complete sentences and symmetric chest movement Neuro General: patient alert and patient oriented x3 Cran (more content not included)... Normal [facility] Gastroenterology Visit Repor ton 12-07-2024 Gastroenterology Visit Report [facility] Gastroenterology [address] [place] [address] OFFICE VISIT Date of Service: 12/07/24 MR#: [id number] Acct: [id number] Name: LANA ADAME Rep #: [id number] : 1985 Provider: CUBA santa Age/Sex: 39/F Location: [facility] Status: Signed Intake Vital Signs 07/30/22 13:52 Height 5 ft 2 in Weight: 171 lb 4 oz BMI 31.3 BP 135/84 H Respiration 16 Pulse 76 Pulse Oximetry (%) 98 Oxygen Delivery Method room air Intake Visit Reasons: Constipation Chief Complaint: rectal pain Painting Supervisor Required: No Is patient in pain?: No Allergies bee venom protein (honey bee) Adverse Reaction (Severe, Verified 12/07/24 09:17) Anaphylaxis Medications ???Medication ???Instructions ???Recorded ???Confirmed ???Type bupropion HCl 300 mg 24 hr tablet, 450 mg PO DAILY 07/30/22 12/06/24 History extended release lurasidone 80 mg tablet (Latuda) 20 mg PO DAILY 12/06/24 12/06/24 History clonazepam 0.5 mg tablet 0.5 mg PO BID 12/07/24 12/07/24 History hydrocortisone acetate 25 mg 25 mg [place] QHS hemorrhoids #7 ea 12/07/24 12/07/24 Rx rectal suppository (Anusol-HC) levothyroxine 112 mcg tablet 100 mcg PO DAILY 12/07/24 12/07/24 History Nurse's Note: Doesn't have constipation as much as it feels like there is something else in the rectum. She only feels that way after a bowel movement, which have been normal. Denies blood in stool/rectum. Has been happening for about 6 months now. Had a gastric sleeve done three years ago. [facility] Medical History Rectal discomfort Depressive disorder Constipation GERD (gastroesophageal reflux disease) KARINE (obstructive sleep apnea) Hiatal hernia Hepatic steatosis Obesity, morbid, BMI 40.0-49.9 Hypothyroidism Normal spontaneous vaginal delivery Surgical History H/O gastric sleeve Family History Father Hypertension Obesity Mother Hypertension Obesity Grandfather Colon cancer Uncle Colon cancer Social History household members: spouse Smoking Status: Never smoker alcohol intake: current substance use type: does not use what type of physical activity do you participate in: walking frequency: 1-2 times per week HPI HPI Chief Complaint: rectal pain Details: LANA ADAME, is a 39 F who presents to the office today for She complains of rectal fullness after a bowel movement. c/o gas - denies any weight loss - denies any bleeding - stools are formed once a day - rectal pain post BM - c/o tenesmus - denies any abdominal pain - denies any change n bowel habits - denies any family h/o IBD - Paternal Uncle and Maternal Great Uncle with colon CA - denies any prior rectal exam Gastric sleeve 2 years ago - N/V related to surgery - reports she had bad constipation post-op - 100lb weight loss ROS Const Constitutional: Positive for headache(s); No fatigue, fever(s) or weight change ENT ENT: Positive for headache(s); No difficulty swallowing Gastro GI: Positive for bloating, change in bowel habits, diarrhea and vomiting; No abdominal pain, belching, change in stool character, coffee ground emesis, constipation, cramping, heartburn, difficulty swallowing, feeling full early, excessive flatus, incontinent of stools, Vomiting blood/hematemesis, Blood in stool, loose stools, Black,tarry stools, nausea/dyspepsia, pain with swallowing or other Musc Musculoskeletal: Positive for back pain and stiffness; No joint pain Skin Skin: Positive for dry skin and itchy eyes; No yellowing of the eye Neuro Neurology: Positive for headache(s) Psych Psychiatric: Positive for anxiety and No depression Endo Endocrine: No fatigue or weight change Aller/Imm Allergy/Immunologic: Positive for itchy eyes Hany/Lymp Hematologic/Lymphatic: No easy bleeding or easy bruising Exam Const General: cooperative, healthy appearing, no acute distress and well developed Nutritional Appearance: average body habitus and well nourished Orientation: alert and oriented x3 HENMT Head: normocephalic Ears: hearing grossly normal bilaterally Mouth: moist mucous membranes Teeth and gingiva: dentition normal Eyes Conjunctivae: conjunctivae normal Sclera: sclerae normal Neck Neck: normal visual inspection, full ROM and trachea midline Resp Effort Inspection: normal respiratory effort, able to speak in complete sentences and symmetric chest movement Auscultation: Bilateral: Clear to Auscultation Cardio Palpation: normal PMI Rate: regular rate Rhythm: regular rhythm Heart Sounds: S1 normal and S2 normal GI (more content not included)... Normal [facility] Basic Metabolic Profile (BMP )on 11-28-2024 BUN/CRE 13.1 RATIO Normal 08-28 [facility] Comment on above: Performed By: #### L 100.0100 #### [facility] [address] [place], [address] CA,Total 9.0 mg/dL Normal 8.5-10.1 [facility] Comment on above: Performed By: #### L 100.0100 #### [facility] [address] [place], [address] Chloride [Moles/Vol] 110 mmol/L High 98-107 [facility] Comment on above: Performed By: #### L 100.0100 #### [facility] [address] [place], [address] CO2 [Moles/Vol] 27.0 mmol/L Normal 21.0-32.0 [facility] Comment on above: Performed By: #### L 100.0100 #### [facility] [facility] [address] [place], [address] Creatinine [Mass/Vol] 0.99 mg/dL Normal 0.55-1.02 [facility] Comment on above: Result Comment: The validity of the calculated GFR GFRAA in patients over 70 years has not been determined. Clinical correlation is essential. Performed By: #### L 100.0100 #### [facility] [address] [place], [address] EST GFR - AA 80 mL/min Normal >60 [facility] Comment on above: Result Comment: Afri can Jamaican GFR Calc Performed By: #### L 100.0100 #### [facility] [address] [place], [address] GAP 2 Low 5-15 [facility] Comment on above: Performed By: #### L 100.0100 #### [facility] [address] [place], [address] GFR/1.73 sq M.predicted among non-blacks MDRD (S/P/Bld) [Vol rate/Area] 66 mL/min/{1.73_m2} Normal >60 [facility] Comment on above: Result Comment: Non- GFR Calc Performed By: #### L 100.0100 #### [facility] [address] [place], [address] Glucose [Mass/Vol] 84 mg/dL Normal 74-106 [facility] Comment on above: Performed By: #### L 100.0100 #### [facility] [address] [place], [address] Potassium [Moles/Vol] 3.7 mmol/L Normal 3.5-5.1 [facility] Comment on above: Performed By: #### L 100.0100 #### [facility] [address] [place], [address] Sodium [Moles/Vol] 139 mmol/L Normal 136-145 [facility] Comment on above: Performed By: #### L 100.0100 #### [facility] [address] [place], [address] Urea nitrogen [Mass/Vol] 13 mg/dL Normal 7-18 [facility] Comment on above: Performed By: #### L 100.0100 #### [facility] [address] [place], [address] Blood urea nitrogen (BUN)/cr eatinine ratioOrdered By: Patricio Moeller on 11-28-2024 Urea nitrogen/Creatinine [Mass ratio] 13.1 mg/mg 10-20 [facility] Carbon dioxide measurementOr dered By: Patricio Moeller on 11-28-2024 CO2 [Moles/Vol] 27.0 mmol/L 21.0-32.0 [facility] Chloride measurementOrdered By: Patricio Moeller on 11-28-2024 Chloride [Moles/Vol] 110 mmol/L High 98-107 [facility] Estimated glomerular filtrat ion rate (GFR) AmericanOrdered By: Patricio Moeller on 11-28-2024 Estimated GFR (MDRD) Amer 80 mL/min >60 [facility] Comment on above: GFR Calc Glomerular filtration rate ( GFR) estimationOrdered By: Patricio Moeller on 11-28-2024 Estimated GFR (MDRD) Non-Af Amer 66 mL/min >60 [facility] Comment on above: Non- GFR Calc GFR/1.73 sq M.predicted among non-blacks MDRD (S/P/Bld) [Vol rate/Area] 66 mL/min/{1.73_m2} >60 [facility] Comment on above: Non- GFR Calc Glucose measurementOrdered B y: Patricio Moeller on 11-28-2024 Glucose [Mass/Vol] 84 mg/dL 74-106 [facility] High density lipoprotein (HD L) measurementOrdered By: Patricio Moeller on 11-28-2024 Cholesterol in HDL [Mass/Vol] 76 mg/dL >40 [facility] Comment on above: The drugs N-Acetylcy steine and Metamizole may falsely depress this assay. Reference Range HDL <40 mg/dL Low HDL Cholesterol HDL >or= 60 mg/dL High HDL Cholesterol Lipid Profileon 11-28-2024 Cholesterol [Mass/Vol] 182 mg/dL Normal 200 [facility] Comment on above: Result Comment: <200 mg/dL Desirable 200-240 mg/dL Borderline >240 mg/dL High Risk Performed By: #### L 100.0100 #### [facility] [address] [place], [address] Cholesterol in HDL [Mass/Vol] 76 mg/dL Normal [facility] Comment on above: Result Comment: The drugs N-Acetylcysteine and Metamizole may falsely depress this assay. Reference Range HDL <40 mg/dL Low HDL Cholesterol HDL >or= 60 mg/dL High HDL Cholesterol Performed By: #### L 100.0100 #### [facility] [address] [place], [address] Cholesterol in LDL [Mass/Vol] 94 mg/dL Normal 0-130 [facility] Comment on above: Performed By: #### L 100.0100 #### [facility] [address] [place], [address] Cholesterol in VLDL [Mass/Vol] 12 mg/dL Normal 5-40 [facility] Comment on above: Performed By: #### L 100.0100 #### [facility] [address] [place], [address] Triglyceride [Mass/Vol] 58 mg/dL Normal [facility] Comment on above: Result Comment: The drugs N-Acetylcysteine and Metamizole may falsely depress this assay. Serum Triglycerides Reference Interval Normal <150 mg/dL Borderline high 150 - 199 mg/dL High 200 - 499 mg/dL Very High > or = 500 mg/dL Performed By: #### L 100.0100 #### [facility] [address] [place], [address] Low density lipoprotein (LDL ) cholesterol measurementOrdered By: Patricio Moeller on 11-28-2024 Cholesterol in LDL [Mass/Vol] 94 mg/dL 0-130 [facility] Potassium measurementOrdered By: Patricio Moeller on 11-28-2024 Potassium [Moles/Vol] 3.7 mmol/L 3.5-5.1 [facility] Serum anion gap measurementO rdered By: Patricio Moeller on 11-28-2024 Anion gap [Moles/Vol] 2 mmol/L Low 5-15 [facility] Serum or plasma calcium alonso urement (mass/volume)Ordered By: Patricio Moeller on 11-28-2024 Calcium [Mass/Vol] 9.0 mg/dL 8.5-10.1 [facility] Serum or plasma cholesterol measurement (mass/volume)Ordered By: Patricio Moeller on 11-28-2024 Cholesterol [Mass/Vol] 182 mg/dL <200 [facility] Comment on above: <200 mg/dL Desirable 200-240 mg/dL Borderline >240 mg/dL High Risk Serum or plasma creatinine m easurement (mass/volume)Ordered By: Patricio Moeller on 11-28-2024 Creatinine [Mass/Vol] 0.99 mg/dL 0.55-1.02 [facility] Comment on above: The validity of the calculated GFR & GFRAA in patients over 70 years has not been determined. Clinical correlation is essential. Serum or plasma thyroid stim ulating hormone (TSH) measurement (units/volume)Ordered By: Patricio Moeller on 11-28-2024 TSH Qn 0.129 uIU/mL Low 0.358-3.74 0 [facility] Serum or plasma urea nitroge n measurement (mass/volume)Ordered By: Patricio Moeller on 11-28-2024 Urea nitrogen [Mass/Vol] 13 mg/dL 7-18 [facility] Sodium levelOrdered By: Patricio Moeller on 11-28-2024 Sodium [Moles/Vol] 139 mmol/L 136-145 [facility] TSH QnOrdered By: Patricio chris on 11-28-2024 Thyroid Stimulating Hormone (TSH) 0.129 uIU/mL Low 0.358-3.74 0 [facility] Thyroid Stim Hormone (TSH)on 11-28-2024 TSH 0.129 uIU/mL Low 0.358-3.74 0 [facility] Comment on above: Performed By: #### L 100.0100 #### [facility] [address] [place], [address] Triglycerides measurementOrd ered By: Patricio Moeller on 11-28-2024 Triglyceride [Mass/Vol] 58 mg/dL <199 [facility] Comment on above: The drugs N-Acetylcy steine and Metamizole may falsely depress this assay.Serum Triglycerides Reference Interval Normal <150 mg/dL Borderline high 150 - 199 mg/dL High 200 - 499 mg/dL Very High > or = 500 mg/dL Very low density lipoprotein (VLDL) cholesterol measurementOrdered By: Patricio Moeller on 11-28-2024 Very low density lipoprotein (VLDL) cholesterol measurement 12 mg/dL 5-40 [facility] VLDL Cholesterol 12 mg/dL 5-40 [facility] Office Visiton 07-18-2024 Follow-up visit [id number] Lana Adame 1985 F Date Provider Department Center 07/18/2024 [id number] WT None Family History Problem Relation Age of Onset Hypertension Father Hypertension Mother Obesity Mother Cancer Paternal Grandfather Comments: LUNG Obesity Maternal Grandfather Hypertension Maternal Grandfather Obesity Father Stroke Maternal Grandfather Obesity Paternal Grandfather Family Status - Relation Status Age at Father Mother Paternal Grandfather Maternal Grandfather Level of Service:41615 [place] OFFICE/OUTPATIENT ESTABLISHED MOD MDM 30 MIN Reason for Visit and Comments: Bariatrics Post Op Follow-up [884] - [address] [facility] Progress Noteon 07-18-2024 Progress Note BARIATRIC CARE PORFIRIO STEVENS NOTE POST WEIGHT LOSS SURGERY FOLLOW UP Patient: Lana Adame Service Date: 07/18/2024 Patient is 18 month(s) s/p Sleeve Gastrectomy Today's Metrics: Post-Surgical Weight Loss Date: 07/18/24 Height: 5' 2.5" (158.8 cm) Weight: 172 lb 6.4 oz (78.2 kg) BMI: 31.03 Weight Change: -8 lbs Total Weight Change: -85.4 lbs % EBWL: 61% Comments: 18M POP Post-op Weight Metrics: Post-Surgical Weight Loss Date: 07/18/24 Height: 5' 2.5" (158.8 cm) Weight: 172 lb 6.4 oz (78.2 kg) BMI: 31.03 Weight Change: -8 lbs Total Weight Change: -85.4 lbs % EBWL: 61% Comments: 18M POP (From Surgical Weight Loss Tracker) Patient has the following questions: None Reported Pain: Patient rates pain on scale 0-10 as: 0 Exercise Compliance: Exercising: yes If yes: Type: walking Times per week: 5 Min per session: 30 Falls Risk Assessment Patient does take medications which affect BP or mental status Patient does not t have newly prescribed or changed dosage of medications within past 30 days which affect BP or mental status Patient has not fallen in the past 2 months Patient does not t demonstrate unsteady gait Patient uses the following ambulatory assistive devices: NONE Patient states the presence of the following traits which increases risk of fall: NONE Patient is not on home O2 Pre-op Weight Metrics: Labs Completed: yes - If NO, patient instructed to get labs drawn today or REBECCA [facility] YES[facility] If yes see Labs Tab [facility]? no If yes see Encounters Tab - Orders only - Historical Provider - Date: Completed by: Alondra Caro MA [facility] 36on 05-23-2024 36 Paper labs received for 18 M visit 05/18/24 Hgb L 11.7 Ferritin L [address] [facility] Basophil percentageOrdered B y: MAXIMO WALTERS on 11-23-2023 Bilirubin [Mass/Vol] 0.40 mg/dL 0.20-1.00 [facility] Comment on above: For patients on eltr ombopag therapy, use of [place] TBIL is not recommended. Chloride [Moles/Vol] 107 mmol/L 98-107 [facility] Cholesterol [Mass/Vol] 171 mg/dL <200 [facility] Comment on above: <200 mg/dL Desirable 200-240 mg/dL Borderline >240 mg/dL High Risk Glucose [Mass/Vol] 80 mg/dL 74-106 [facility] Potassium [Moles/Vol] 4.1 mmol/L 3.5-5.1 [facility] Protein [Mass/Vol] 7.3 g/dL 6.4-8.2 [facility] Sodium [Moles/Vol] 140 mmol/L 136-145 [facility] Triglyceride [Mass/Vol] 72 mg/dL <199 [facility] Comment on above: The drugs N-Acetylcy steine and Metamizole may falsely depress this assay.Serum Triglycerides Reference Interval Normal <150 mg/dL Borderline high 150 - 199 mg/dL High 200 - 499 mg/dL Very High > or = 500 mg/dL WBC (Bld) [#/Vol] 7.2 10*3/uL 4.4-11.0 [facility] Blood erythrocytes count (nu mber/volume)Ordered By: MAXIMO WALTERS on 11-23-2023 RBC (Bld) [#/Vol] 4.48 10*6/uL 4.2-5.4 [facility] Blood hemoglobin measurement (mass/volume)Ordered By: MAXIMO WALTERS on 11-23-2023 Hemoglobin (Bld) [Mass/Vol] 13.0 g/dL 12.0-15.0 [facility] Blood platelet mean volumeOr dered By: MAXIMO WALTERS on 11-23-2023 Platelet mean volume (Bld) [Entitic vol] 11.6 fL 6.2-12.0 [facility] Determination of erythrocyte mean corpuscular volume (MCV)Ordered By: MAXIMO WALTERS on 11-23-2023 MCV (RBC) [Entitic vol] 90.6 fL 81-99 [facility] Folic acid serumOrdered By: MAXIMO WALTRES on 11-23-2023 Folate [Mass/Vol] 15.60 ng/mL 3.1-55.4 [facility] Hematocrit Auto (Bld) [Volum e fraction]Ordered By: MAXIMO WALTERS on 11-23-2023 Hematocrit (Bld) [Volume fraction] 40.6 % 37-47 [facility] Iron measurement (mass/mass) Ordered By: MAXIMO WALTERS on 11-23-2023 Iron (Unsp spec) [Mass/Mass] 93 ug/dL 50-170 [facility] - Chemistry and C hemistry - challengeOrdered By: MAXIMO WALTERS on 11-23-2023 ALP [Catalytic activity/Vol] 74 U/L 45-117 [facility] ALT [Catalytic activity/Vol] 27 U/L 13-56 [facility] CO2 [Moles/Vol] 27.0 mmol/L 21.0-32.0 [facility] Cobalamin (Vitamin B12) [Mass/Vol] 1045 pg/mL 211-911 [facility] Globulin (S) [Mass/Vol] 3.6 g/dL 2.2-4.2 [facility] Magnesium [Mass/Vol] 1.9 mg/dL 1.6-2.6 [facility] Urea nitrogen/Creatinine [Mass ratio] 8.7 mg/mg 10-20 [facility] - Hematology and Cell countsOrdered By: MAXIMO WALTERS on 11-23-2023 Erythrocyte distribution width (RBC) [Entitic vol] 41.6 fL 35.1-43.9 [facility] Erythrocyte distribution width (RBC) [Ratio] 12.7 % 11.6-14.6 [facility] MCH (RBC) [Entitic mass] 29.0 pg 27.0-32.0 [facility] MCHC Auto (RBC) [Mass/Vol]Or dered By: MAXIMO WALTERS on 11-23-2023 MCHC (RBC) [Mass/Vol] 32.0 g/dL 32-36 [facility] No Panel InformationOrdered By: MAXIMO WALTERS on 11-23-2023 Estimated GFR (MDRD) Amer 88 mL/min >60 [facility] Comment on above: GFR Calc Estimated GFR (MDRD) Non-Af Amer 72 mL/min >60 [facility] Comment on above: Non- GFR Calc Vitamin D 25-Hydroxy 65.9 ng/mL [facility] Comment on above: Vitamin D 25(OH) Sta tus Range Deficiency <20 ng/mL (50nmol/L) Insufficiency 20 - 30 ng/mL (50 - 75 nmol/L) Sufficiency 30 - 100 ng/mL (75 - 250 nmol/L) Toxicity >100 ng/mL (>250 nmol/L) Platelets bldOrdered By: ANTHONY WALTERS on 11-23-2023 Platelets (Bld) [#/Vol] 309 10*3/uL 150-450 [facility] Serum or plasma albumin alonso urement (mass/volume)Ordered By: MAXIMO WALTERS on 11-23-2023 Albumin [Mass/Vol] 3.7 g/dL 3.2-5.0 [facility] Serum or plasma albumin/glob ulin mass ratioOrdered By: MAXIMO WALTERS on 11-23-2023 Albumin/Globulin [Mass ratio] 1.0 {ratio} 0.9-2.4 [facility] Serum or plasma calcium alonso urement (mass/volume)Ordered By: MAXIMO WALTERS on 11-23-2023 Calcium [Mass/Vol] 9.3 mg/dL 8.5-10.1 [facility] Serum or plasma cholesterol in HDL measurement (mass/volume)Ordered By: MAXIMO WALTERS on 11-23-2023 Cholesterol in HDL [Mass/Vol] 66 mg/dL >40 [facility] Comment on above: The drugs N-Acetylcy steine and Metamizole may falsely depress this assay. Reference Range HDL <40 mg/dL Low HDL Cholesterol HDL >or= 60 mg/dL High HDL Cholesterol Serum or plasma cholesterol in VLDL measurement (mass/volume)Ordered By: MAXIMO WALTERS on 11-23-2023 Cholesterol in VLDL [Mass/Vol] 14 mg/dL 5-40 [facility] Serum or plasma creatinine m easurement (mass/volume)Ordered By: MAXIMO WALTERS on 11-23-2023 Creatinine [Mass/Vol] 0.92 mg/dL 0.55-1.02 [facility] Comment on above: The validity of the calculated GFR & GFRAA in patients over 70 years has not been determined. Clinical correlation is essential. Serum or plasma ferritin venus surement (mass/volume)Ordered By: MAXIMO WALTERS on 11-23-2023 Ferritin [Mass/Vol] 10 ng/mL 8-252 [facility] Serum or plasma low density lipoprotein (LDL) cholesterol measurement (mass/volume)Ordered By: MAXIMO WALTERS 11-23-2023 Cholesterol in LDL [Mass/Vol] 91 mg/dL 0-130 [facility] Serum or plasma thiamine venus surement (mass/volume)Ordered By: MAXIMO WALTERS on 11-23-2023 Thiamine [Mass/Vol] 138.4 nmol/L 66.5-200.0 [facility] Serum or plasma urea nitroge n measurement (mass/volume)Ordered By: MAXIMO WALTERS on 11-23-2023 Urea nitrogen [Mass/Vol] 8 mg/dL 7-18 [facility] Serum or plasma zinc measure ment (mass/volume)Ordered By: MAXIMO WALTERS on 11-23-2023 Zinc [Mass/Vol] 75 ug/dL 44-115 [facility] Comment on above: Detection Limit = 5P erformed at: [facility] [id number] Director: Wade Bañuelos MD, Phone: [phone] Thin prep Papanicolaou smear with manual screeningOrdered By: MAXIMO WALTERS on 11-23-2023 Thin prep Papanicolaou smear with manual screening 19 U/L 15-37 [facility] Thin prep Papanicolaou smear with manual screening 6 -15 [facility] - Chemistry and C hemistry - challengeOrdered By: Patricio Moeller on 10-16-2023 Free T4 [Mass/Vol] 1.23 ng/dL 0.76-1.46 [facility] No Panel InformationOrdered By: Patricio Moeller on 10-16-2023 Free Triiodothyronine (T3) pg/dL 2.3 pg/mL 2.18-3.98 [facility] Thyroid Stimulating Hormone (TSH) 0.65 uIU/mL 0.358-3.74 [facility] Basophil percentageOrdered B y: Patricio Moeller on 08-10-2023 Bilirubin [Mass/Vol] 0.30 mg/dL 0.20-1.00 [facility] Comment on above: For patients on eltr ombopag therapy, use of [place] TBIL is not recommended. Chloride [Moles/Vol] 105 mmol/L 98-107 [facility] Cholesterol [Mass/Vol] 152 mg/dL <200 [facility] Comment on above: <200 mg/dL Desirable 200-240 mg/dL Borderline >240 mg/dL High Risk Glucose [Mass/Vol] 145 mg/dL 74-106 [facility] Comment on above: Fasting Glucose resu lt greater than or equal to 126 mg/dL suggests DIABETES MELLITUS per A.D.A. criteria. Potassium [Moles/Vol] 3.5 mmol/L 3.5-5.1 [facility] Protein [Mass/Vol] 7.7 g/dL 6.4-8.2 [facility] Sodium [Moles/Vol] 139 mmol/L 136-145 [facility] Triglyceride [Mass/Vol] 98 mg/dL <199 [facility] Comment on above: The drugs N-Acetylcy steine and Metamizole may falsely depress this assay.Serum Triglycerides Reference Interval Normal <150 mg/dL Borderline high 150 - 199 mg/dL High 200 - 499 mg/dL Very High > or = 500 mg/dL Laboratory - Chemistry and C hemistry - challengeOrdered By: Patricio Moeller on 08-10-2023 ALP [Catalytic activity/Vol] 80 U/L 45-117 [facility] ALT [Catalytic activity/Vol] 24 U/L 13-56 [facility] CO2 [Moles/Vol] 28.0 mmol/L 21.0-32.0 [facility] Free T4 [Mass/Vol] 1.24 ng/dL 0.76-1.46 [facility] Globulin (S) [Mass/Vol] 4.0 g/dL 2.2-4.2 [facility] Urea nitrogen/Creatinine [Mass ratio] 8.6 mg/mg 10-20 [facility] No Panel InformationOrdered By: Patricio Moeller on 08-10-2023 Estimated GFR (MDRD) Amer 76 mL/min >60 [facility] Comment on above: GFR Calc Estimated GFR (MDRD) Non-Af Amer 62 mL/min >60 [facility] Comment on above: Non- GFR Calc Free Triiodothyronine (T3) pg/dL 2.3 pg/mL 2.18-3.98 [facility] Thyroid Stimulating Hormone (TSH) 0.30 uIU/mL 0.358-3.74 [facility] Serum or plasma albumin alonso urement (mass/volume)Ordered By: Patricio Moeller on 08-10-2023 Albumin [Mass/Vol] 3.7 g/dL 3.2-5.0 [facility] Serum or plasma albumin/glob ulin mass ratioOrdered By: Patricio Moeller on 08-10-2023 Albumin/Globulin [Mass ratio] 0.9 {ratio} 0.9-2.4 [facility] Serum or plasma calcium alonso urement (mass/volume)Ordered By: Patricio Moeller on 08-10-2023 Calcium [Mass/Vol] 9.1 mg/dL 8.5-10.1 [facility] Serum or plasma cholesterol in HDL measurement (mass/volume)Ordered By: Patricio Moeller on 08-10-2023 Cholesterol in HDL [Mass/Vol] 58 mg/dL >40 [facility] Comment on above: The drugs N-Acetylcy steine and Metamizole may falsely depress this assay. Reference Range HDL <40 mg/dL Low HDL Cholesterol HDL >or= 60 mg/dL High HDL Cholesterol Serum or plasma cholesterol in VLDL measurement (mass/volume)Ordered By: Patricio Moeller on 08-10-2023 Cholesterol in VLDL [Mass/Vol] 20 mg/dL 5-40 [facility] Serum or plasma creatinine m easurement (mass/volume)Ordered By: Patricio Moeller on 08-10-2023 Creatinine [Mass/Vol] 1.05 mg/dL 0.55-1.02 [facility] Comment on above: The validity of the calculated GFR & GFRAA in patients over 70 years has not been determined. Clinical correlation is essential. Serum or plasma low density lipoprotein (LDL) cholesterol measurement (mass/volume)Ordered By: Patricio Moeller on 08-10-2023 Cholesterol in LDL [Mass/Vol] 74 mg/dL 0-130 [facility] Serum or plasma urea nitroge n measurement (mass/volume)Ordered By: Patricio Moeller on 08-10-2023 Urea nitrogen [Mass/Vol] 9 mg/dL 7-18 [facility] Thin prep Papanicolaou smear with manual screeningOrdered By: Patricio Moeller on 08-10-2023 Thin prep Papanicolaou smear with manual screening 16 U/L 15-37 [facility] Thin prep Papanicolaou smear with manual screening 6 5-15 [facility] - Chemistry and C hemistry - challengeOrdered By: Dr. Moeller on 04-29-2023 Free T4 [Mass/Vol] 1.40 ng/dL 0.76-1.46 [facility] No Panel InformationOrdered By: Dr. Moeller on 04-29-2023 Free Triiodothyronine (T3) pg/dL 2.2 pg/mL 2.18-3.98 [facility] Thyroid Stimulating Hormone (TSH) 0.85 uIU/mL 0.358-3.74 [facility] Basophil percentageOrdered B y: MAXIMO WALTERS on 03-19-2023 Bilirubin [Mass/Vol] 0.20 mg/dL 0.20-1.00 [facility] Comment on above: For patients on eltr ombopag therapy, use of [place] TBIL is not recommended. Chloride [Moles/Vol] 107 mmol/L 98-107 [facility] Glucose [Mass/Vol] 84 mg/dL 74-106 [facility] Potassium [Moles/Vol] 4.1 mmol/L 3.5-5.1 [facility] Protein [Mass/Vol] 7.7 g/dL 6.4-8.2 [facility] Sodium [Moles/Vol] 140 mmol/L 136-145 [facility] WBC (Bld) [#/Vol] 8.2 10*3/uL 4.4-11.0 [facility] Blood erythrocytes count (nu mber/volume)Ordered By: MAXIMO WALTERS on 03-19-2023 RBC (Bld) [#/Vol] 4.33 10*6/uL 4.2-5.4 [facility] Blood hemoglobin measurement (mass/volume)Ordered By: MAXIMO WALTERS on 03-19-2023 Hemoglobin (Bld) [Mass/Vol] 13.0 g/dL 12.0-15.0 [facility] Blood platelet mean volumeOr dered By: MAXIMO WALTERS on 03-19-2023 Platelet mean volume (Bld) [Entitic vol] 12.5 fL 6.2-12.0 [facility] Determination of erythrocyte mean corpuscular volume (MCV)Ordered By: MAXIMO WALTERS on 03-19-2023 MCV (RBC) [Entitic vol] 92.6 fL 81-99 [facility] Hematocrit Auto (Bld) [Volum e fraction]Ordered By: MAXIMO WALTERS on 03-19-2023 Hematocrit (Bld) [Volume fraction] 40.1 % 37-47 [facility] Iron measurement (mass/mass) Ordered By: MAXIMO WALTERS on 03-19-2023 Iron (Unsp spec) [Mass/Mass] 62 ug/dL 50-170 [facility] Laboratory - Chemistry and C hemistry - challengeOrdered By: MAXIMO WALTERS on 03-19-2023 ALP [Catalytic activity/Vol] 74 U/L 45-117 [facility] ALT [Catalytic activity/Vol] 56 U/L 13-56 [facility] CO2 [Moles/Vol] 25.0 mmol/L 21.0-32.0 [facility] Cobalamin (Vitamin B12) [Mass/Vol] 895 pg/mL 211-911 [facility] Globulin (S) [Mass/Vol] 3.9 g/dL 2.2-4.2 [facility] Magnesium [Mass/Vol] 1.7 mg/dL 1.6-2.6 [facility] Urea nitrogen/Creatinine [Mass ratio] 11.1 mg/mg 10-20 [facility] Laboratory - Hematology and Cell countsOrdered By: MAXIMO WALTERS on 03-19-2023 Erythrocyte distribution width (RBC) [Entitic vol] 44.8 fL 35.1-43.9 [facility] Erythrocyte distribution width (RBC) [Ratio] 13.1 % 11.6-14.6 [facility] MCH (RBC) [Entitic mass] 30.0 pg 27.0-32.0 [facility] MCHC Auto (RBC) [Mass/Vol]Or dered By: MAXIMO WALTERS on 03-19-2023 MCHC (RBC) [Mass/Vol] 32.4 g/dL 32-36 [facility] No Panel InformationOrdered By: MAXIMO WALTERS on 03-19-2023 Estimated GFR (MDRD) Amer 81 mL/min >60 [facility] Comment on above: GFR Calc Estimated GFR (MDRD) Non-Af Amer 67 mL/min >60 [facility] Comment on above: Non- GFR Calc Platelets bldOrdered By: ANTHONY WALTERS on 03-19-2023 Platelets (Bld) [#/Vol] 267 10*3/uL 150-450 [facility] Serum or plasma albumin alonso urement (mass/volume)Ordered By: MAXIMO WALTERS on 03-19-2023 Albumin [Mass/Vol] 3.8 g/dL 3.2-5.0 [facility] Serum or plasma albumin/glob ulin mass ratioOrdered By: MAXIMO WALTERS on 03-19-2023 Albumin/Globulin [Mass ratio] 1.0 {ratio} 0.9-2.4 [facility] Serum or plasma calcium alonso urement (mass/volume)Ordered By: MAXIMO WALTERS on 03-19-2023 Calcium [Mass/Vol] 9.4 mg/dL 8.5-10.1 [facility] Serum or plasma creatinine m easurement (mass/volume)Ordered By: MAXIMODANGELO WALTERS on 03-19-2023 Creatinine [Mass/Vol] 0.99 mg/dL 0.55-1.02 [facility] Comment on above: The validity of the calculated GFR & GFRAA in patients over 70 years has not been determined. Clinical correlation is essential. Serum or plasma ferritin venus surement (mass/volume)Ordered By: MAXIMO WALTERS on 03-19-2023 Ferritin [Mass/Vol] 43 ng/mL 8-252 [facility] Serum or plasma folate measu rement (mass/volume)Ordered By: MAXIMO WALTERS on 03-19-2023 Folate [Mass/Vol] 15.00 ng/mL 3.1-55.4 [facility] Serum or plasma urea nitroge n measurement (mass/volume)Ordered By: MAXIMO ROMEO on 03-19-2023 Urea nitrogen [Mass/Vol] 11 mg/dL 7-18 [facility] Serum or plasma zinc measure ment (mass/volume)Ordered By: MAXIMODANGELO WALTERS on 03-19-2023 Zinc [Mass/Vol] 68 ug/dL 44-115 [facility] Comment on above: Detection Limit = 5P erformed at: - [facility] [id number] Director: Wade Bañuelos MD, Phone: [phone] Thin prep Papanicolaou smear with manual screeningOrdered By: MAXIMO AWLTERS on 03-19-2023 Thin prep Papanicolaou smear with manual screening 25 U/L 15-37 [facility] Thin prep Papanicolaou smear with manual screening 8 5-15 [facility] Laboratory - Chemistry and C hemistry - challengeOrdered By: MAXIMO WALTERS on 02-11-2023 Magnesium [Mass/Vol] 1.9 mg/dL 1.6-2.6 [facility] Basic metabolic 1998 panelon 12-23-2022 Anion gap [Moles/Vol] 8 mmol/L 3 - 13 mmol/L [facility] Calcium [Mass/Vol] 8.6 mg/dL 8.4 - 10. 4 mg/dL [facility] Chloride [Moles/Vol] 103 mmol/L 98 - 10 7 mmol/L [facility] CO2 [Moles/Vol] 25 mmol/L 22 - 30 mmol/L [facility] Creatinine [Mass/Vol] 1.11 mg/dL High 0.52 - 1.04 mg/dL [facility] GFR/1.73 sq M.predicted MDRD (S/P/Bld) [Vol rate/Area] 65.8 mL/min/{1.73_m2} - PINF [facility] Comment on above: Calculation based on the Chronic Kidney Disease Epidemiology Collaboration (CKD-EPI) equation refit without adjustment for race Glucose [Mass/Vol] 141 mg/dL High 70 - 100 mg/dL [facility] Interpretation and review of laboratory results Abnormal [facility] Potassium [Moles/Vol] 4.5 mmol/L 3.5 - 5.1 mmol/L [facility] Sodium [Moles/Vol] 136 mmol/L 135 - 145 mmol/L [facility] Urea nitrogen [Mass/Vol] 8 mg/dL 7 - 17 mg/dL [facility] CBC panel Auto (Bld)Ordered By: Greg Weri on 12-23-2022 Erythrocyte distribution width (RBC) [Ratio] 12.6 % 11.5 - 14.5 % [facility] Hematocrit (Bld) [Volume fraction] 38.2 % 35.0 - 47.0 % [facility] Hemoglobin (Bld) [Mass/Vol] 13.0 g/dL 11.7 - 16.0 g/dL [facility] Interpretation and review of laboratory results Abnormal [facility] MCH (RBC) [Entitic mass] 30.2 pg 26.0 - 34.0 pg [facility] MCHC (RBC) [Mass/Vol] 34.0 % 32.0 - 36.0 % [facility] MCV (RBC) [Entitic vol] 88.8 fL 80.0 - 98.0 fL [facility] Platelet mean volume (Bld) [Entitic vol] 10.3 fL 7.4 - 12.4 fL [facility] Platelets (Bld) [#/Vol] 308 10*3/uL 140 - 440 10*3/uL [facility] RBC (Bld) [#/Vol] 4.30 10*6/uL 3.8 - 5.20 10*6/uL [facility] WBC (Bld) [#/Vol] 17.1 10*3/uL High 3.6 - 10.7 10*3/uL [facility] XR Abdomen and RF Gastrointe stinal tract upper W contrast [place] 12-23-2022 Postsurgical sleeve gastrectomy changes. No gastric obstruction or contrast extravasation. Report Dictated on Electronically Signed By: Verna Weiss Electronically Signed Date/Time: 12/23/2022 10:15 AM EST [facility] Patient Name: LANA ADAME : 1985 Exam Date/Time: 12/23/2022 07:06 Procedure: FL UPPER GI WITH KUB Ordering Provider: MARTINO JOHN Reason For Exam: post op bariatric patient GASTROGRAFIN UGI SERIES: History: Post op day one gastric sleeve, evaluate for leak. Fluoroscopy time: 0.08 minutes Comparison: 04/03/2022 Fluoroscopic images series: 47 Findings: The exam was performed using Gastrografin which was administered to the patient's in the upright position. To the extent visualized, the esophagus is unremarkable. . The patient is status post laparoscopic sleeve gastrectomy with corresponding longitudinal resection of the stomach and remaining tubular stomach conduit noted. There is no contrast extravasation or leaks. There is prompt emptying of the gastric conduit into the duodenum without obstruction. There is small amount of free air under the right hemidiaphragm, presumably postsurgical. [employer] Verna Weiss MD - 12/23/2022 Patient Name: [facility]AME : 1985 [id number] Exam Date/Time: 12/23/2022 07:06 Procedure: FL UPPER GI WITH KUB Ordering Provider: MARTINO JOHN Reason For Exam: post op bariatric patient GASTROGRAFIN UGI SERIES: History: Post op day one gastric sleeve, evaluate for leak. Fluoroscopy time: 0.08 minutes Comparison: 04/03/2022 Fluoroscopic images series: 47 Findings: The exam was performed using Gastrografin which was administered to the patient's in the upright position. To the extent visualized, the esophagus is unremarkable. . The patient is status post laparoscopic sleeve gastrectomy with corresponding longitudinal resection of the stomach and remaining tubular stomach conduit noted. There is no contrast extravasation or leaks. There is prompt emptying of the gastric conduit into the duodenum without obstruction. There is small amount of free air under the right hemidiaphragm, presumably postsurgical. IMPRESSION: Postsurgical sleeve gastrectomy changes. No gastric obstruction or contrast extravasation. Report Dictated on Electronically Signed By: Verna Weiss Electronically Signed Date/Time: 12/23/2022 10:15 AM EST [facility] Radiology Study observation (narrative) [facility] XR Abdomen and RF Gastrointe stinal tract upper W contrast POOrdered By: Verna Weiss on 12-23-2022 [facility] Work Phone: Basic metabolic 1998 panelon 12-22-2022 Anion gap [Moles/Vol] 12 mmol/L 3 - 13 mmol/L [facility] Calcium [Mass/Vol] 9.0 mg/dL 8.4 - 10. 4 mg/dL [facility] Chloride [Moles/Vol] 102 mmol/L 98 - 10 7 mmol/L [facility] CO2 [Moles/Vol] 24 mmol/L 22 - 30 mmol/L [facility] Creatinine [Mass/Vol] 1.14 mg/dL High 0.52 - 1.04 mg/dL [facility] GFR/1.73 sq M.predicted MDRD (S/P/Bld) [Vol rate/Area] 63.7 mL/min/{1.73_m2} - PINF [facility] Comment on above: Calculation based on the Chronic Kidney Disease Epidemiology Collaboration (CKD-EPI) equation refit without adjustment for race Glucose [Mass/Vol] 171 mg/dL High 70 - 100 mg/dL [facility] Interpretation and review of laboratory results Abnormal [facility] Potassium [Moles/Vol] 5.1 mmol/L 3.5 - 5.1 mmol/L [facility] Sodium [Moles/Vol] 137 mmol/L 135 - 145 mmol/L [facility] Urea nitrogen [Mass/Vol] 11 mg/dL 7 - 17 mg/dL [facility] Slightly Hemolyzed. Interpret K+ with caution. [facility] Hemoglobin (Bld) [Mass/Vol]o n 12-22-2022 Hematocrit (Bld) [Volume fraction] 44.0 % 35.0 - 47.0 % [facility] Interpretation and review of laboratory results Normal [facility] Laboratory - Hematology and Cell countson 12-22-2022 Hemoglobin (Bld) [Mass/Vol] 14.4 g/dL 11.7 - 16.0 g/dL [facility] ECG 12 leadOrdered By: Sarah Lopez on 12-05-2022 Heart rate 71 /min bpm [facility] Work Phone: P [place] 14 degrees [facility] Work Phone: MN Interval 147 ms [employer] ([place]) Phone: QRS [place] 22 degrees [employer] ([place]) Phone: QRSD Interval 94 ms [employer] ([place]) Phone: QT Interval 395 ms [facility] Work Phone: QTC Interval 431 ms [facility] Work Phone: T Wave [place] 26 degrees [employer] ([place]) Phone: [facility] Work Phone: ECG 12 leadon 12-05-2022 Sinus rhythm Normal EKG Electronically Signed On 12-05-2022 9:32:59 EST by Hermes Lopez CV Hermes Sellers MD - 12/05/2022 IMPRESSION: Sinus rhythm Normal EKG Electronically Signed On 12-05-2022 9:32:59 EST by Hermes Lopez [facility] XR Chest 2 Viewson No evidence of acute cardiopulmonary process. Report Dictated on Electronically Signed By: Christian Hines Electronically Signed Date/Time: 12/04/2022 11:35 AM [facility] Patient Name: LANA ADAME Exam Date/Time: 12/04/2022 11:23 Procedure: XR CHEST 2 VIEWS Ordering Provider: WALTERS MALLORY Reason For Exam: CLINICAL INFORMATION: Preoperative chest x-ray for bariatric surgery for morbid obesity. Chest x-ray, PA and lateral: PA and lateral views without prior examination for comparison is underpenetrated due to body habitus. There is no abnormality of the mediastinum or cardiac silhouette. No pleural effusion, vascular congestion, focal consolidation or pneumothorax is seen. [facility] Christian Hines MD - 12/04/2022 Patient Name: LANA ADAME Exam Date/Time: 12/04/2022 11:23 Procedure: XR CHEST 2 VIEWS Ordering Provider: WALTERS MALLORY Reason For Exam: CLINICAL INFORMATION: Preoperative chest x-ray for bariatric surgery for morbid obesity. Chest x-ray, PA and lateral: PA and lateral views without prior examination for comparison is underpenetrated due to body habitus. There is no abnormality of the mediastinum or cardiac silhouette. No pleural effusion, vascular congestion, focal consolidation or pneumothorax is seen. IMPRESSION: No evidence of acute cardiopulmonary process. Report Dictated on Electronically Signed By: Christian Hines Electronically Signed Date/Time: 12/04/2022 11:35 AM EST [facility] Radiology Study observation (narrative) [facility] XR Chest 2 ViewsOrdered By: Christian Hines on 12-04-2022 [facility] Work Phone: Laboratory - Chemistry and C hemistry - challengeOrdered By: Dr. Moeller on 10-29-2022 Free T4 [Mass/Vol] 0.97 ng/dL 0.76-1.46 [facility] No Panel InformationOrdered By: Dr. Moeller on 10-29-2022 Free Triiodothyronine (T3) pg/dL 2.6 pg/mL 2.18-3.98 [facility] Thyroid Stimulating Hormone (TSH) 2.49 uIU/mL 0.358-3.74 [facility] Absolute lymphocyte counton 06-10-2022 Lymphocytes Auto (Unsp spec) [#/Vol] 1.68 10*3/uL 0.83-4.51 [facility] Work Phone: Basophil percentageon 2021 Basophils/100 WBC (Bld) 0.8 % 0-1 [facility] Work Phone: Chloride [Moles/Vol] 108 mmol/L 98-107 [facility] Work Phone: [phone] Cholesterol [Mass/Vol] 216 mg/dL <200 [facility] Work Phone: Comment on above: <200 mg/dL Desirable 200-240 mg/dL Borderline >240 mg/dL High Risk Eosinophils/100 WBC (Bld) 3.2 % 0-5 [facility] Work Phone: Glucose [Mass/Vol] 90 mg/dL 74-106 [facility] Work Phone: Neutrophils (Bld) [#/Vol] 4.7 10*3/uL 2.0-7.7 [facility] Work Phone: Neutrophils/100 WBC (Bld) 66.1 % 47-70 [facility] Work Phone: Potassium [Moles/Vol] 4.2 mmol/L 3.5-5.1 [facility] Work Phone: [phone] Sodium [Moles/Vol] 139 mmol/L 136-145 [facility] Work Phone: Triglyceride [Mass/Vol] 120 mg/dL <199 [facility] Work Phone: Comment on above: The drugs N-Acetylcy steine and Metamizole may falsely depress this assay.Serum Triglycerides Reference Interval Normal <150 mg/dL Borderline high 150 - 199 mg/dL High 200 - 499 mg/dL Very High > or = 500 mg/dL WBC (Bld) [#/Vol] 7.2 10*3/uL 4.4-11.0 [facility] Work Phone: Blood erythrocytes count (nu mber/volume)on 06-10-2022 RBC (Bld) [#/Vol] 4.29 10*6/uL 4.2-5.4 [facility] Work Phone: Blood hemoglobin measurement (mass/volume)on 06-10-2022 Hemoglobin (Bld) [Mass/Vol] 13.3 g/dL 12.0-15.0 [facility] Work Phone: Blood lymphocytes/100 leukoc yteson 06-10-2022 Lymphocytes/100 WBC (Bld) 23.4 % 19-41 [facility] Work Phone: Blood monocytes/100 leukocyt eson 06-10-2022 Monocytes/100 WBC (Bld) 6.1 % 0-10 [facility] Work Phone: Blood platelet mean volumeon 06-10-2022 Platelet mean volume (Bld) [Entitic vol] 11.9 fL 6.2-12.0 [facility] Work Phone: Determination of erythrocyte mean corpuscular volume (MCV)on 06-10-2022 MCV (RBC) [Entitic vol] 92.3 fL 81-99 [facility] Work Phone: HM ENDOSCOPY REPORTon 2021 Ordered by an unspec ified provider. [facility] Hematocrit Auto (Bld) [Volum e fraction]on 06-10-2022 Hematocrit (Bld) [Volume fraction] 39.6 % 37-47 [facility] Work Phone: Laboratory - Chemistry and C hemistry - challengeon 06-10-2022 CO2 [Moles/Vol] 26.0 mmol/L 21.0-32.0 [facility] Work Phone: Free T4 [Mass/Vol] 0.87 ng/dL 0.76-1.46 [facility] Work Phone: Urea nitrogen/Creatinine [Mass ratio] 9.6 mg/mg 10-20 [facility] Work Phone: Laboratory - Hematology and Cell countson 06-10-2022 Erythrocyte distribution width (RBC) [Entitic vol] 42.4 fL 35.1-43.9 [facility] Work Phone: Erythrocyte distribution width (RBC) [Ratio] 12.5 % 11.6-14.6 [facility] Work Phone: Immature granulocytes/100 WBC (Bld) 0.400 % 0.0-0.9 [facility] Work Phone: Comment on above: IG% - Immature Granu locytes (promyelocytes, myelocytes and metamyelocytes) > 1% indicates that a LEFT SHIFT is Present. MCH (RBC) [Entitic mass] 31.0 pg 27.0-32.0 [facility] Work Phone: Nucleated RBC/100 WBC (Bld) [Ratio] 0 % 0-5 [facility] Work Phone: MCHC Auto (RBC) [Mass/Vol]on 06-10-2022 MCHC (RBC) [Mass/Vol] 33.6 g/dL 32-36 [facility] Work Phone: No Panel Informationon 06-10 Estimated GFR (MDRD) Amer 69 mL/min >60 [facility] Work Phone: Comment on above: GFR Calc Estimated GFR (MDRD) Non-Af Amer 57 mL/min >60 [facility] Work Phone: Comment on above: Non- GFR Calc Free Triiodothyronine (T3) pg/dL 2.4 pg/mL 2.18-3.98 [facility] Work Phone: Thyroid Stimulating Hormone (TSH) 2.72 uIU/mL 0.358-3.74 [facility] Work Phone: Platelets bldon 06-10-2022 Platelets (Bld) [#/Vol] 269 10*3/uL 150-450 [facility] Work Phone: Serum or plasma calcium alonso urement (mass/volume)on 06-10-2022 Calcium [Mass/Vol] 8.9 mg/dL 8.5-10.1 [facility] Work Phone: Serum or plasma cholesterol in HDL measurement (mass/volume)on 06-10-2022 Cholesterol in HDL [Mass/Vol] 54 mg/dL >40 [facility] Work Phone: Comment on above: The drugs N-Acetylcy steine and Metamizole may falsely depress this assay. Reference Range HDL <40 mg/dL Low HDL Cholesterol HDL >or= 60 mg/dL High HDL Cholesterol Serum or plasma cholesterol in VLDL measurement (mass/volume)on 06-10-2022 Cholesterol in VLDL [Mass/Vol] 24 mg/dL 5-40 [facility] Work Phone: Serum or plasma creatinine m easurement (mass/volume)on 06-10-2022 Creatinine [Mass/Vol] 1.14 mg/dL 0.55-1.02 [facility] Work Phone: Comment on above: The validity of the calculated GFR & GFRAA in patients over 70 years has not been determined. Clinical correlation is essential. Serum or plasma low density lipoprotein (LDL) cholesterol measurement (mass/volume)on 06-10-2022 Cholesterol in LDL [Mass/Vol] 138 mg/dL 0-130 [facility] Work Phone: Serum or plasma urea nitroge n measurement (mass/volume)on 06-10-2022 Urea nitrogen [Mass/Vol] 11 mg/dL 7-18 [facility] Work Phone: Surgical Pathologyon 022 Surgical Pathology [id number] [facility] PATHOLOGY AND LABORATORY MEDICINE [address] [place] [id number] FINAL SURGICAL PATHOLOGY REPORT NAME: LANA ADAME : 1985 36 Y F MARCIN NO.: [id number] LOCATION: E PROCEDURE 06/10/2022 DATE: SURGEON: DALTON MARTINO M.D. RECEIVED 06/10/2022 DATE: ATTENDING: DALTON MARTINO M.D. REPORT DATE: 06/11/2022 COPIES TO: DIAGNOSIS: STOMACH, BIOPSY - REACTIVE GASTROPATHY Comment: Evaluation of the H&E-stained sections shows no evidence of Helicobacter pylori or any morphologic features to suggest infection with the organism; as such, further studies for Helicobacter are not indicated. There is no evidence of intestinal metaplasia, dysplasia or malignancy. SMT/SMT Signature> S YESSI SANCHEZ M.D. CLINICAL INFORMATION: GERD SPECIMEN: GASTRIC BIOPSY , antral GROSS DESCRIPTION: Received in formalin, labeled "antral", are two irregularly-shaped fragments of pink-burnett soft tissue; the smaller measures 0.2 x 0.2 x 0.1 cm and the larger measures 0.3 x 0.2 x 0.2 cm, and both are submitted into one cassette. BSC/0RW Disclaimer: The following statement applies to all immunohistochemistry, in situ hybridization, molecular studies, and immunofluorescence testing. The use of one or more reagents in the above tests is regulated as an analyte specific reagent (ASR). These tests were developed and their performance characteristics determined by the clinical laboratories of [facility]. They have not been cleared by the [place] Food and Drug Administration (FDA). The FDA has determined that such clearance or approval is not necessary. All the above immunostains were performed on paraffin embedded tissue. Appropriate positive and negative controls (where applicable) were run in parallel with the patient's specimen; these controls showed expected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 Abnormal; Notable for the following components: Hemoglobin/Blood,Ur 1+ (*) Negative Protein, Urine Trace (*) Negative Leukest Trace (*) Negative All other components within normal limits TOX SCREEN ROUT UR - Abnormal; Notable for the following components: Benzodiazepines Urine Preliminary positive. (*) Negative All other components within normal limits URINE MICROSCOPIC - Abnormal; Notable for the following components: Bacteria Few (*) 0 /HPF All other components within normal limits HCG QUAL UR CBC ALCOHOL/ETHANOL BLD EXPEDITED COVID19 No orders to display Procedures ED Course / Clinical Impression Clinical Impressions as of Nov 26 2307 Suicidal ideation Depression, unspecified depression type Mood disorder (HCC) COVID-19 test performed per [facility] policy for suspected COVID community exposure. MDM / Disposition / Plan MDM Vitals reviewed. Triage records reviewed. Nursing notes reviewed. Afebrile. AANDO x 3, NAD. Nontoxic appearing. H RRR. Lungs CTA. Patient is tearful on exam. She is cooperative and answering questions appropriately. She does have suicidal thoughts and had a plan of suicide earlier today. She does state that if she left the hospital right now, she would not harm herself or anybody else. ECG reveals NSR. Rate 65 bpm. Laboratory testing is unremarkable other than slightly elevated creatinine, which is patient's baseline. Tox screen is only positive for benzodiazepines-patient is prescribed clonazepam. Alcohol level <11 COVID negative ED course: Tylenol 650 mg after patient was complaining of headache from crying. Most likely diagnosis is suicidal ideation, depression At this time, patient is medically clear. She does not require medical admission. Central intake recommends admission for further psychiatric evaluation and treatment. Patient will be transferred to [facility]. Patient is agreeable to plan and expressed understanding. Patient was discussed with attending physician. 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 My marie findings include:patient presents with suicidal ideation, depression, found by guera in closet with a razor blade after they had an argument tonight. She has a history of depression and is being treated for same. She is medically cleared; psych intake has spoken with patient and she has been accepted at [facility] psych and will be transferred there. 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 [facility] Comment on above: Result Comment: This test has been authorized by FDA under an Emergency Use Authorization (EUA). Performed By: #### E XCOVD ####[facility] [address] [place] [address] COVID 19 Source POWER MACHINE OPERATOR UPPER RESPIRATORY TR ACT SWAB Normal [facility] Comment on above: Performed By: #### E XCOVD ####[facility] [address] [place] [address] HCG Qual, Urineon 11-26-2020 Beta HCG ( test) Ql (U) Negative Normal Negative [facility] Comment on above: Result Comment: Fals e positives and false negatives are rare but have been described. Clinical correlation of the findings is recommended. Performed By: #### U A, UAMIC, UTOX2, UHCG #### [facility] [address] [address] Toxicology Screen,Uron 11-26 Amphetamines, Urine Negative Normal Negative [facility] Comment on above: Result Comment: Cuto ff threshold at 1000 ng/mL. Performed By: #### U A, UAMIC, UTOX2, UHCG ####[facility] [address] [place] [address] Barbiturates, Urine Negative Normal Negative [facility] Comment on above: Result Comment: Cuto ff threshold at 200 ng/mL. Performed By: #### U A, UAMIC, UTOX2, UHCG ####[facility] [address] [place] [address] Benzodiazepines, Ur Positive Critically abnormal Negative [facility] Comment on above: Result Comment: Cuto ff threshold at 200 ng/mL. Performed By: #### U A, UAMIC, UTOX2, UHCG ####[facility] [address] [place] [address] Cannabinoids, Urine Negative Normal Negative [facility] Comment on above: Result Comment: Cuto ff threshold at 50 ng/mL. Performed By: #### U A, UAMIC, UTOX2, UHCG ####[facility] [address] [place] [address] Cocaine, Urine Negative Normal Negative [facility] Comment on above: Result Comment: Cuto ff threshold at 300 ng/mL. Performed By: #### U A UAMIC, UTOX2, UHCG ####[facility] [address] [phone] Opiates, Urine Negative Normal Negative [facility] Comment on above: Result Comment: Cuto ff threshold at 300 ng/mL. Performed By: #### U A UAMIC, UTOX2, UHCG ####[facility] [address] [phone] Oxycodone, Urine Negative Normal [facility] Comment on above: Result Comment: Cuto ff threshold at 100 ng/mL. Comment: Immunoassay screen only. Cross reactivity with other substances can occur with immunoassay screening. Detection of any drug(s) in this urine toxicology panel is presumptive only. These tests are for medical purposes only and should not be used for compliance monitoring, legal, or forensic use. Samples should be within normal physiological conditions (e.g. pH). This assay does not include adulteration/specimen validity testing. In clinical settings, confirmatory testing is at the practitioner's discretion [1]. If clinically indicated, confirmation by high specificity, quantitative methodology, which includes adulteration/specimen validity testing, may be requested on the same specimen through Client Services ([phone]) if contacted within 48 hours of initial testing. [1]Substance Abuse and Mental Health Services Administration (2012). Clinical Drug Testing in Primary Care Technical Assistance Publication Series 32. Department of Health and Human Services, [place], p.10. Performed By: #### U A UAMIC, UTOX2, UHCG ####[facility] [address] [phone] Phencyclidine, Urine Negative Normal Negative [facility] Comment on above: Result Comment: Cuto ff threshold at 25 ng/mL. Performed By: #### U A UARASHIDA UTOX2, UHCG ####[facility] [address] [phone] Urinalysison 11-26-2020 Bilirubin, Urine Negative Normal [facility] Comment on above: Performed By: #### U A UAMIC, UTOX2, UHCG #### [facility] [address] [phone] Clarity (U) Clear Normal Clear [facility] Comment on above: Performed By: #### U A, UAMIC, UTOX2, UHCG #### [facility] [address] [phone] Color (U) Yellow Normal Yellow [facility] Comment on above: Performed By: #### U A, UAMIC, UTOX2, UHCG #### [facility] [address] [facility] [phone] Glucose Ql (U) Negative Normal Negative [facility] Comment on above: Performed By: #### U A, UAMIC, UTOX2, UHCG #### [facility] [address] [place], [place] [phone] Hemoglobin/Blood,Ur 1+ Critically abnormal Negative [facility] Comment on above: Performed By: #### U A, UAMIC, UTOX2, UHCG #### [facility] [address] [phone] Ketones Ql (U) Negative Normal Negative [facility] Comment on above: Performed By: #### U A, UAMIC, UTOX2, UHCG #### [facility] [address] [place], [place] [phone] Leukest Trace Critically abnormal Negative [facility] Comment on above: Performed By: #### U A, UAMIC, UTOX2, UHCG #### [facility] [address] [place] [address] Nitrite Ql (U) Negative Normal Negative [facility] Comment on above: Performed By: #### U A, UAMIC, UTOX2, UHCG #### [facility] [address] [place] [phone] pH (Bld) 6.0 Normal 5.0-8.0 [facility] Comment on above: Performed By: #### U A, UAMIC, UTOX2, UHCG #### [facility] [address] [place] [phone] Protein (U) [Mass/Vol] Trace Criticall y abnormal Negative [facility] Comment on above: Performed By: #### U A, UAMIC, UTOX2, UHCG #### [facility] [address] [place] [address] Specific [place], Ur 1.025 Normal 1.005-1 .03 0 [facility] Comment on above: Performed By: #### U A, UAMIC, UTOX2, UHCG #### [facility] [address] [phone] Urobilinogen Qn (U) 0.2 E.U./dL Normal 0.2-1.0 [facility] Comment on above: Performed By: #### U A, UAMIC, UTOX2, UHCG #### [facility] [address] [phone] Urine Microscopic (FOR LAB U SE ONLY)on 11-26-2020 Bacteria LM.HPF (Urine sed) [#/Area] Few Critically abnormal 0 [facility] Comment on above: Performed By: #### U A, UAMIC, UTOX2, UHCG ####[facility] [address] [phone] Cast SEE COMMENT Normal 0 [facility] Comment on above: Result Comment: 0 Performed By: #### U A, UAMIC, UTOX2, UHCG ####[facility] [address] [address] Epithelial cells LM.HPF (Urine sed) [#/Area] SEE COMMENT Normal [facility] Comment on above: Result Comment: 0-5 Squamous Epithelial Cells Performed By: #### U A, UAMIC, UTOX2, UHCG ####[facility] [address] [address] RBC (U) [#/Vol] 0-3 Normal 0-3 [facility] Comment on above: Performed By: #### U A, UAMIC, UTOX2, UHCG ####[facility] [address] WBC (Bld) [#/Vol] 0-5 Normal 0-5 [facility] Comment on above: Performed By: #### U A, UAMIC, UTOX2, UHCG ####[facility] [address] ALLIED HEALTHon 12-11-2019 ALLIED HEALTH HNO ID: [id number] Author: Rita GarzaCt) CHLOE Fernandez Service: ? Author Type: Clinical Turner Off Type: Allied Health Filed: 12/11/2019 2:07 AM Note Text: Radiology Service Progress Note PATIENT NAME: Lana Adame DATE OF SERVICE: December 11, 2019 TIME: 2:07 AM PATIENT IDENTITY VERIFICATION COMPLETED USING TWO (2) IDENTIFIERS: Name and Date of confirmed by patient verbally and Name and Date of confirmed by identification band. PATIENT GENDER DATA: Female. status: : No status: NO. PATIENT RELEVANT IMPLANT DATA REVIEWED: Not Applicable RADIOLOGY DEPARTMENT: CT; Exam(s) Completed: Brain PERIPHERAL IV DATA: Not applicable SIGNED BY: CHLOE Voss December 11, 2019 2:07 AM Normal [facility] CBC and Differentialon 12-11 Abs Baso <0.03 Normal <0.11 [facility] Comment on above: Performed By: #### M G1, CBCDIF, CK, CMP, PT ####[facility] [address] [phone] Abs Rush 0.59 k/uL Normal <0.87 [facility] Comment on above: Performed By: #### M G1, CBCDIF, CK, CMP, PT ####[facility] [address] [phone] Abs Neut 9.34 k/uL High 1.45-7.50 [facility] Comment on above: Performed By: #### M G1, CBCDIF, CK, CMP, PT ####[facility] [phone] Basophils/100 WBC (Bld) 0.2 % Normal [facility] Comment on above: Performed By: #### M G1, CBCDIF, CK, CMP, PT ####[facility] [address] [phone] Eosinophils (Bld) [#/Vol] 0.11 10*3/uL Normal <0.46 [facility] Comment on above: Performed By: #### M G1, CBCDIF, CK, CMP, PT ####[facility] [address] [phone] Eosinophils/100 WBC (Bld) 1.0 % [facility] Comment on above: Performed By: #### M G1, CBCDIF, CK, CMP, PT ####[address] [place] [address] Erythrocyte distribution width (RBC) [Ratio] 12.4 % Normal 11.5-15.0 [facility] Comment on above: Performed By: #### M G1, CBCDIF, CK, CMP, PT ####[address] [place] [address] Hematocrit (Bld) [Volume fraction] 38.8 % Normal 36.0-46.0 [facility] Comment on above: Performed By: #### M G1, CBCDIF, CK, CMP, PT ####[address] [place] [address] Hemoglobin (Bld) [Mass/Vol] 13.1 g/dL Normal 11.5-15.5 [facility] Comment on above: Performed By: #### M G1, CBCDIF, CK, CMP, PT ####[address] [place] [address] Lymphocytes (Bld) [#/Vol] 0.92 10*3/uL Low 1.00-4.00 [facility] Comment on above: Performed By: #### M G1, CBCDIF, CK, CMP, PT ####[address] [address] Lymphocytes/100 WBC (Bld) 8.4 % Normal [facility] Comment on above: Performed By: #### M G1, CBCDIF, CK, CMP, PT ####[address] [place] [address] MCH (RBC) [Entitic mass] 30.1 pG Normal 26.0-34.0 [facility] Comment on above: Performed By: #### M G1, CBCDIF, CK, CMP, PT ####[address] [place] [address] MCHC (RBC) [Mass/Vol] 33.8 g/dL Normal 30.5-36.0 [facility] Comment on above: Performed By: #### M G1, CBCDIF, CK, CMP, PT ####[phone] MCV (RBC) [Entitic vol] 89.2 fL Normal 80.0-100.0 [facility] Comment on above: Performed By: #### M G1, CBCDIF, CK, CMP, PT ####[facility] [address] [place], [place] [phone] Monocytes/100 WBC (Bld) 5.4 % Normal [facility] Comment on above: Performed By: #### M G1, CBCDIF, CK, CMP, PT ####[facility] [address] [place] [address] Neutrophils/100 WBC (Bld) 85.0 % Normal [facility] Comment on above: Performed By: #### M G1, CBCDIF, CK, CMP, PT ####[facility] [address] [place] [address] Platelet mean volume (Bld) [Entitic vol] 11.5 fL Normal 9.0-12.7 [facility] Comment on above: Performed By: #### M G1, CBCDIF, CK, CMP, PT ####[facility] [address] [place] [address] Platelets (Bld) [#/Vol] 246 10*3/uL Normal 150-400 [facility] Comment on above: Performed By: #### M G1, CBCDIF, CK, CMP, PT ####[facility] [address] [place] [address] RBC (Bld) [#/Vol] 4.35 10*6/uL Normal 3.90-5.20 [facility] Comment on above: Performed By: #### M G1, CBCDIF, CK, CMP, PT ####[facility] [address] [place] [address] WBC (Bld) [#/Vol] 10.98 10*3/uL Normal 3.70-11.00 [facility] Comment on above: Performed By: #### M G1, CBCDIF, CK, CMP, PT ####[facility] [address] [place], [place] [phone] CKon 12-11-2019 CK [Catalytic activity/Vol] 148 U/L Normal 42-196 [facility] Comment on above: Performed By: #### M G1, CBCDIF, CK, CMP, PT ####[facility] [address] [phone] CT BRAIN WO IVCONon 12-11-[address] BRAIN WO IVCON * * *Final Report* * * DATE OF EXAM: Dec 11 2019 2:08AM [facility] 0504 - CT BRAIN WO IVCON / PROCEDURE REASON: Seizure, new, abn neuro exam, nontraumatic * * * * Physician Interpretation * * * * EXAMINATION: CT BRAIN WO IVCON CLINICAL HISTORY: Seizure, new, abn neuro exam, nontraumatic TECHNIQUE: Serial axial images without IV contrast were obtained from the vertex to the foramen magnum. MQ: CTBWO_3 CT Dose-Length Product (DLP): 638 mGy*cm CT Dose Reduction Employed: No dose reduction techniques were required COMPARISON: None. RESULT: Post-operative change: None. Acute change: No evidence of an acute infarct or other acute parenchymal process. Hemorrhage: No evidence of acute intracranial hemorrhage. Mass Lesion / Mass Effect: There is no evidence of an intracranial mass or extraaxial fluid collection. No significant mass effect. Chronic change: None apparent. Parenchyma: There is no significant volume loss. The brain parenchyma is otherwise within normal limits for age. Ventricles: The ventricles are within normal limits of size and configuration for age. Paranasal sinuses and skull base: The visualized paranasal sinuses are grossly clear. The skull base and imaged soft tissues are unremarkable. IMPRESSION: No acute intracranial abnormality. Publishing Editor: PSCCoby Transcribe Date/Time: Dec 11 2019 2:14A Dictated by : SOLOMON SALGUERO MD This examination was interpreted and the report reviewed and electronically signed by: SOLOMON SALGUERO MD on Dec 11 2019 2:15AM EST [id number] Normal [facility] Comp Metabolic Panelon 12-11 Albumin [Mass/Vol] 4.0 g/dL Normal 3.9-4.9 [facility] Comment on above: Performed By: #### M G1, CBCDIF, CK, CMP, PT ####[facility] [address] [phone] ALP [Catalytic activity/Vol] 52 U/L Normal 34-123 [facility] Comment on above: Performed By: #### M G1, CBCDIF, CK, CMP, PT ####[facility] [address] [place] [address] ALT [Catalytic activity/Vol] 13 U/L Normal 7-38 [facility] Comment on above: Performed By: #### M G1, CBCDIF, CK, CMP, PT ####[facility] [address] [phone] Anion gap [Moles/Vol] 15 mmol/L Normal 9-18 [facility] Comment on above: Performed By: #### M G1, CBCDIF, CK, CMP, PT ####[facility] [address] [place] [address] AST [Catalytic activity/Vol] 19 U/L Normal 13-35 [facility] Comment on above: Performed By: #### M G1, CBCDIF, CK, CMP, PT ####[facility] [address] [place] [address] Bilirubin [Mass/Vol] 0.3 mg/dL Normal 0.2-1.3 [facility] Comment on above: Performed By: #### M G1, CBCDIF, CK, CMP, PT ####[facility] [address] [place] [address] Calcium [Mass/Vol] 8.9 mg/dL Normal 8.5-10.2 [facility] Comment on above: Performed By: #### M G1, CBCDIF, CK, CMP, PT ####[facility] [address] [place] [address] Chloride [Moles/Vol] 101 mmol/L Normal 97-105 [facility] Comment on above: Performed By: #### M G1, CBCDIF, CK, CMP, PT ####[facility] [address] CO2 [Moles/Vol] 22 mmol/L Normal 22-30 [facility] Comment on above: Performed By: #### M G1, CBCDIF, CK, CMP, PT ####[facility] [address] [place] [phone] Creatinine [Mass/Vol] 0.97 mg/dL High 0.58-0.96 [facility] Comment on above: Performed By: #### M G1, CBCDIF, CK, CMP, PT ####[facility] [address] [place] [phone] eGFR- Amer. >60 Normal [facility] Comment on above: Performed By: #### M G1, CBCDIF, CK, CMP, PT ####[facility] [address]721[address] GFR/1.73 sq M predicted among non-blacks MDRD (S/P/Bld) [Vol rate/Area] mL/min/{1.73_m2} Normal [facility] Comment on above: Result Comment: eGFR (Estimated GFR) Units of measure: mL/min/1.73 meters squared eGFR is derived from the reexpressed MDRD Study equation using the following parameters: serum creatinine, age, gender and race. The creatinine assay has been calibrated to be traceable to IDMS. An eGFR <60 mL/min/1.73m2 for >3 months is consistent with chronic kidney disease. Refer to KDOQI guidelines for clinical interpretation. In patients with unstable renal function, e.g. those with acute kidney injury, the eGFR may not accurately reflect actual GFR. Performed By: #### M G1, CBCDIF, CK, CMP, PT ####[facility] [address] Glucose [Mass/Vol] 115 mg/dL High 74-99 [facility] Comment on above: Result Comment: The [place] [employer] (ADA) provides guidance for cutoff values for fasting glucose and random glucose. The ADA defines fasting as no caloric intake for at least 8 hours. Fasting plasma glucose results between 100 to 125 mg/dL indicate increased risk for diabetes (prediabetes). Fasting plasma glucose results greater than or equal to 126 mg/dL meet the criteria for diagnosis of diabetes. In the absence of unequivocal hyperglycemia, results should be confirmed by repeat testing. In a patient with classic symptoms of hyperglycemia or hyperglycemic crisis, random plasma glucose results greater than or equal to 200 mg/dL meet the criteria for diagnosis of diabetes. Reference: Standards of Medical Care in Diabetes 2016, [place] [employer]. Diabetes Care. 2016.39(Suppl 1). Performed By: #### M G1, CBCDIF, CK, CMP, PT ####[facility] [address] [place] [phone] Potassium [Moles/Vol] 4.0 mmol/L Normal 3.7-5.1 [facility] Comment on above: Performed By: #### M G1, CBCDIF, CK, CMP, PT ####[facility] [address] [place] [phone] Protein [Mass/Vol] 6.8 g/dL Normal 6.3-8.0 [facility] Comment on above: Performed By: #### M G1, CBCDIF, CK, CMP, PT ####[facility] [address] [place] [phone] Sodium [Moles/Vol] 138 mmol/L Normal 136-144 [facility] Comment on above: Performed By: #### M G1, CBCDIF, CK, CMP, PT ####[facility] [address] [place] [phone] Urea nitrogen [Mass/Vol] 14 mg/dL Normal 7-21 [facility] Comment on above: Performed By: #### M G1, CBCDIF, CK, CMP, PT ####[facility] [address] [place] [phone] ECG COMPLETEon 12-11-2019 ECG COMPLETE NAME : LANA ADAME PID : [id number] : [id number] Gender : Female Race : ORD : [id number] Procedure Date : Dec 11 2019 01:38:50 Edit Date : Dec 12 2019 08:11:21 Diagnosis:NORMAL SINUS RHYTHM NORMAL ECG 0140a 12/11/19 Confirmed by DO DAVILA ALAN ([id number]), order editor VINAY LEGER ([id number]) on 12/12/2019 8:11:16 AM Systolic BP : 116 mmHg Diastolic BP : 56 mmHg Ventricular Rate : 80 BPM Atrial Rate : 80 BPM P-R Interval : 154 ms QRS Duration : 86 ms Q-T Interval : 402 ms QTC Calculation(Bazett) : 463 ms P K[place] : 25 degrees R [place]va : 21 degrees T [place]va : 26 degrees Test Reason : Chest Pain Location : 1 : ER 04 Overread By : DO DAVILA ALAN Edited By : VINAY LEGER Referred By : System,System Acquired by : , Normal [facility] ED NOTEon 12-11-2019 ED NOTE HNO ID: [id number] Author: Carey GarzaRn) KOJO Pal Service: ? Author Type: Registered Nurse Type: ED Notes Filed: 12/11/2019 5:02 AM Note Text: Discharge inst reviewed with pt, discussed follow up with pcp and neurologist and no driving until seen by neuro. Pt verbalized understanding via teach back method, pt stable upon departure from ED [facility] ED NOTE HNO ID: [id number] Author: Marycarmen Mariee (Medic) Service: Emergency Medicine Author Type: Endband Sizer and Turner Off Type: ED Notes Filed: 12/14/2019 11:03 AM Note Text: Emergency Services: ED Call Back Questionnaire SERVICE DATE: 12/11/2019 Are you feeling better? Yes Any questions about discharge instructions and follow-up care? No Were you able to make a follow up appointment? Yes Do you have any further questions? No Is there anything that we could have done differently to improve your ED visit? No SIGNATURE: Marycarmen Mariee PATIENT NAME: Lana Adame DATE: December 14, 2019 TIME: 11:02 AM [facility] ED NOTE HNO ID: [id number] Author: Carey Alvarez) KOJO Pal Service: ? Author Type: Registered Nurse Type: ED Notes Filed: 12/11/2019 1:33 AM Note Text: Pt presents to the ED with CC of 2 seizures witnessed by her at home tonight, lasting about 30 sec, has not had a seizure in 14 years. Does not remember the seizure. Does complain of starting to have cold symptoms today and having a little bit of abd pain rating it only 2/10. Pt is currently AOx4. Pt is also complaining of some upper back pain [facility] ED PROV NOTEon 12-11-2019 ED PROV NOTE HNO ID: [id number] Author: Jigar Davila DO Service: Emergency Medicine Author Type: Physician Type: ED Provider Notes Filed: 12/11/2019 4:46 AM Note Text: ED Provider Note Patient Name: Lana Adame SERVICE DATE: 12/11/19 History Patient presents with: Seizures: 2 witnessed seizures tonight, no seizures in 14 years 34-year-old female patient presents to ED. Apparently she had 2 witnessed seizures by her at home today. She had a seizure about 14 years ago after a piercing. She has never started on medications for seizures. She has not started any new medications recently. She has some pain in her tongue and believes she may have bit it. It is not bleeding. No headache. No posterior neck pain. Her upper back is a little sore. No red flag symptoms of neck or back pain. No chest pain or dyspnea. No palpitations. No abdominal pain. No extremity pain. She does not feel weakness in her arms or legs. Other than feeling a little tired now she feels back to baseline. PAST MEDICAL HISTORY Diagnosis Date - Depression - Hypothyroid - Psychiatric disorder No past surgical history on file. No family history on file. Social History Tobacco Use - Smoking status: Not on file Substance and Sexual Activity - Alcohol use: Not on file - Drug use: Not on file - Sexual activity: Not on file ALLERGIES No Known Allergies Review of Systems Constitutional: Negative for activity change and appetite change. HENT: Negative for congestion, drooling, rhinorrhea, sore throat, trouble swallowing and voice change. Eyes: Negative for photophobia, pain and visual disturbance. Respiratory: Negative for cough, chest tightness and shortness of breath. Cardiovascular: Negative for chest pain and leg swelling. Gastrointestinal: Negative for abdominal pain, blood in stool, constipation, diarrhea, nausea and vomiting. Genitourinary: Negative for decreased urine volume, dysuria, flank pain, frequency, hematuria and urgency. Musculoskeletal: Negative for back pain, joint swelling and neck pain. Skin: Negative for rash. Neurological: Positive for seizures. Negative for dizziness, weakness, light-headedness and headaches. Hematological: Negative for adenopathy. Psychiatric/Behavioral: The patient is not nervous/anxious. Physical Exam BP 116/56 Pulse 75 Temp (Src) 98.1 (Oral) Resp 18 Wt 210 lb (95.3kg) SpO2 99% O2 Therapy: Room Air Physical Exam Vitals signs and nursing note reviewed. Constitutional: General: She is not in acute distress. Appearance: She is well-developed. HENT: Head: Normocephalic. Nose: Nose normal. Mouth/Throat: Eyes: General: No scleral icterus. Right eye: No discharge. Left eye: No discharge. Conjunctiva/sclera: Conjunctivae normal. Pupils: Pupils are equal, round, and reactive to light. Neck: Musculoskeletal: Normal range of motion and neck supple. Normal range of motion. No injury, pain with movement, spinous process tenderness or muscular tenderness. Trachea: No tracheal deviation. Cardiovascular: Rate and Rhythm: Normal rate and regular rhythm. Heart sounds: Normal heart sounds. No murmur. Pulmonary: Effort: Pulmonary effort is normal. No respiratory distress. Breath sounds: Normal breath sounds. No wheezing. Chest: Chest wall: No tenderness. Abdominal: General: Bowel sounds are normal. There is no distension. Palpations: Abdomen is soft. There is no mass. Tenderness: There is no abdominal tenderness. There is no guarding or rebound. Musculoskeletal: Normal range of motion. General: No tenderness. Lymphadenopathy: Cervical: No cervical adenopathy. Skin: General: Skin is warm and dry. Findings: No rash. Neurological: Mental Status: She is alert and oriented to person, place, and time. GCS: GCS eye subscore is 4. GCS verbal subscore is 5. GCS motor subscore is 6. Cranial Nerves: Cranial nerves are intact. Sensory: Sensation is intact. Motor: Motor function is intact. Coordination: Coordination is intact. Deep Tendon Reflexes: Reflexes are normal and symmetric. Diagnostic Testing ED Labs Ordered and Reviewed - No data to display Procedures ED Course / Clinical Impression Clinical Impressions as of Dec 11 444 Seizure (HCC) Hypomagnesemia MDM / Disposition / Plan 34-year-old female patient presents to ED as above. Patient placed on the monitor. IV access established. Seizure precautions initiated. CT the brain chem EKG laboratory studies ordered. IV hydration initiated. EKG sinus rhythm 80 bpm. MN interval 154 ms. QRS and [address] segments are isoelectric. Flat T wave in lead 3. No acute ischemia. Workup: Results for orders placed or performed during the hospital encounter of 12/11/19 -COMP METABOLIC PANEL Result Value Ref Range Protein, Total 6.8 6.3 - 8.0 g/dL Albumin 4.0 3.9 - 4.9 g/dL Calcium 8.9 8.5 - 10.2 mg/dL Bilirubin, Total 0.3 0.2 - 1.3 mg/dL Alkaline Phosphatase 52 34 - 123 U/L AST 19 13 - 35 U/L Glucose 115 (H) 74 - 99 mg/dL BUN 14 7 - 21 mg/dL Creatinine 0.97 (H) 0.58 - 0.96 mg/dL Sodium 138 136 - 144 mmol/L Potassium 4.0 3.7 - 5.1 mmol/L Chloride 101 97 - 105 mmol/L CO2 22 22 - 30 mmol/L Anion Gap 15 9 - 18 mmol/L ALT 13 7 - 38 U/L eGFR- >60 eGFR-All Other Races >60 . -MAGNESIUM BLD Result Value Ref Range Magnesium 1.3 (L) 1.7 - 2.3 mg/dL -CK CREATINE KINASE Result Value Ref Range CK 148 42 - 196 U/L -CBC + DIFF Result Value Ref Range WBC 10.98 3.70 - 11.00 k/uL RBC 4.35 3.90 - 5.20 m/uL Hemoglobin 13.1 11.5 - 15.5 g/dL Hematocrit 38.8 36.0 - 46.0 % MCV 89.2 80.0 - 100.0 fL MCH 30.1 26.0 - 34.0 pG MCHC 33.8 30.5 - 36.0 g/dL RDW-CV 12.4 11.5 - 15.0 % Platelet Count 246 150 - 400 k/uL MPV 11.5 9.0 - 12.7 fL Neut% 85.0 % Abs Neut (ANC) 9.34 (H) 1.45 - 7.50 k/uL Lymph% 8.4 % Abs Lymph 0.92 (L) 1.00 - 4.00 k/uL Rush% 5.4 % Abs Rush 0.59 <0.87 k/uL Eosin% 1.0 % Abs Eosin 0.11 <0.46 k/uL Baso% 0.2 % Abs Baso <0.03 <0.11 k/uL -PROTHROMBIN TIME/PT Result Value Ref Range PT Sec 11.9 9.7 - 13.0 sec PT INR 1.1 0.9 - 1.3 -MAGNESIUM BLD Result Value Ref Range Magnesium 2.3 1.7 - 2.3 mg/dL CT BRAIN WO IVCON Final Result IMPRESSION: No acute intracranial abnormality. Publishing Editor: TIERA Transcribe Date/Time: Dec 11 2019 2:14A Dictated by : SOLOMON SALGUERO MD This examination was interpreted and the report reviewed and electronically signed by: SOLOMON SALGUERO MD on Dec 11 2019 2:15AM EST CAT scan without acute pathology. Magnesium level was low. Magnesium replacement initiated. Repeat is at the high-end of normal. Patient was reevaluated multiple times on myself. Awake and alert on each reevaluation. No complaints. No further seizure activity. We discussed admission. She refuses admission. Significant other supports her decision. She is awake and alert and able to make this decision. She does agree not to drive. She does agree to follow-up with neurology. The patient was DISCHARGED: Counseled patient and family regarding lab results AND radiology results AND suspected diagnosis AND need for follow-up. Discharged home with verbal and written instructions. They were instructed to return as needed for persistent or worsening symptoms or any new concerns. Condition at time of disposition: improved and stable SIGNATURE: DO Jigar Pete DO 12/11/19 0446 Normal [facility] Magnesiumon 12-11-2019 Magnesium [Mass/Vol] 2.3 mg/dL Normal 1.7-2.3 [facility] Comment on above: Result Comment: Rech ecked Performed By: #### M G1 ####[facility] [id number] [place] [phone] Magnesium [Mass/Vol] 1.3 mg/dL Low 1.7-2.3 [facility] Comment on above: Performed By: #### M G1, CBCDIF, CK, CMP, PT ####[facility] [id number] [place] [phone] Protimeon 12-11-2019 PT Coag (PPP) [Time] 1.1 s Normal 0.9-1.3 [facility] Comment on above: Result Comment: Arlene min K Antagonist (VKA) Therapeutic Range: INR 2 to 3 (Target INR of 2.5) Note: For patients treated with VKA drugs, such as warfarin, the [employer] 2012 Guideline recommends a therapeutic INR range of 2 to 3 (target INR of 2.5). This recommendation includes high-risk patients with antiphospholipid syndrome with previous arterial or venous thromboembolism, current-generation mechanical or bioprosthetic aortic heart valve replacement. Note: Patients with mechanical aortic valve replacement and additional risk factors for thromboembolic events (atrial fibrillation, previous thromboembolism, LV dysfunction, hypercoagulable conditions) or an older generation mechanical AVR (i.e., ball in-Cage) or any mechanical MVR should have a INR therapeutic range of 2.5 to 3.5 (target INR of 3). Esther GH, et al. Chest 2012, 141:7S-47S David RA, et al. [facility] 2017, 70: 252-289 Performed By: #### M G1, CBCDIF, CK, CMP, PT ####[facility] [id number] [place] [phone] PT Coag (PPP) [Time] 11.9 s Normal 9.7-13.0 [facility] Comment on above: Performed By: #### M G1, CBCDIF, CK, CMP, PT ####[facility] [id number] [place] [phone] Vital Signs Date Time Vital Sign Value Performing Clinician Facility 05-24-2025 15:31-0400 Body height 157.48 cm [employer] Work Phone: [facility] 05-24-2025 15:31-0400 Body mass index (BMI) [Ratio] 31.3 kg/m2 [employer] Work Phone: [facility] 05-24-2025 15:31-0400 Body temperature 98.3 [degF] [employer] Work Phone: [facility] 05-24-2025 15:31-0400 Body weight 77.73 kg [employer] Work Phone: [facility] 05-24-2025 15:31-0400 Diastolic blood pressure 88 mm[Hg] [employer] Work Phone: [facility] 05-24-2025 15:31-0400 Heart rate 70 /min [employer] Work Phone: [facility] 05-24-2025 15:31-0400 Respiratory rate 18 /min [employer] Work Phone: [facility] 05-24-2025 15:31-0400 SaO2% (BldA) [Mass fraction] 99 % [employer] Work Phone: [facility] 05-24-2025 15:31-0400 Systolic blood pressure 130 mm[Hg] HANNAH DEJAK Work Phone: [facility] 04-13-2025 13:39-0400 Body temperature 97.1 [degF] HANNAH DEJAK Work Phone: [facility] 04-13-2025 13:39-0400 Diastolic blood pressure 72 mm[Hg] HANNAH DEJAK Work Phone: [facility] 04-13-2025 13:39-0400 Heart rate 67 /min HANNAH DEJAK Work Phone: [facility] 04-13-2025 13:39-0400 Respiratory rate 16 /min HANNAH DEJAK Work Phone: [facility] 04-13-2025 13:39-0400 SaO2% (BldA) [Mass fraction] 100 % HANNAH DEJAK Work Phone: [facility] 04-13-2025 13:39-0400 Systolic blood pressure 127 mm[Hg] HANNAH DEJAK Work Phone: [facility] 04-04-2025 13:54-0400 Body mass index (BMI) [Ratio] 30.72 kg/m2 Rasheeda Dhaliwal PA-C Work Phone: [facility] 04-04-2025 13:54-0400 Body temperature 97.9 [degF] Rasheeda Dhaliwal PA-C Work Phone: [facility] 04-04-2025 13:54-0400 Body weight 76.8 kg Rasheeda Dhaliwal PA-C Work Phone: [facility] 04-04-2025 13:54-0400 Diastolic blood pressure 81 mm[Hg] Rasheeda Dhaliwal PA-C Work Phone: [facility] Comment on above: right arm 04-04-2025 13:54-0400 Heart rate 68 /min Rasheeda Dhaliwal PA-C Work Phone: [facility] 04-04-2025 13:54-0400 SaO2% (BldA) [Mass fraction] 97 % Rasheeda Dhaliwal PA-C Work Phone: [facility] 04-04-2025 13:54-0400 Systolic blood pressure 121 mm[Hg] Rasheeda Dhaliwal PA-C Work Phone: [facility] Comment on above: right arm 03-30-2025 11:01-0400 Body mass index (BMI) [Ratio] 30.9 kg/m2 HANNAH NEWELL Work Phone: [facility] 03-20-2025 15:52-0400 Body temperature 97.7 [degF] Dr. Patricio Moeller MD Work Phone: [facility] 03-20-2025 15:52-0400 Diastolic blood pressure 80 mm[Hg] Dr. Patricio Moeller MD Work Phone: [facility] 03-20-2025 15:52-0400 Heart rate 72 /min Dr. Patricio Moeller MD Work Phone: [facility] 03-20-2025 15:52-0400 SaO2% (BldA) [Mass fraction] 97 % Dr. Patricio Moeller MD Work Phone: [facility] 03-20-2025 15:52-0400 Systolic blood pressure 124 mm[Hg] Dr. Patricio Moeller MD Work Phone: [facility] 03-18-2025 15:03-0400 Diastolic blood pressure 85 mm[Hg] Dr. Patricio Moeller MD Work Phone: [facility] 03-18-2025 15:03-0400 Heart rate 72 /min Dr. Patricio Moeller MD Work Phone: [facility] 03-18-2025 15:03-0400 Respiratory rate 14 /min Dr. Patricio Moeller MD Work Phone: [facility] 03-18-2025 15:03-0400 SaO2% (BldA) [Mass fraction] 98 % Dr. Patricio Moeller MD Work Phone: [facility] 03-18-2025 15:03-0400 Systolic blood pressure 135 mm[Hg] Dr. Patricio Moeller MD Work Phone: [facility] 03-18-2025 13:36-0400 Body temperature 98.1 [degF] Dr. Patricio Moeller MD Work Phone: [facility] 03-18-2025 12:27-0400 Body height 157.[address] Patricio Moeller MD Work Phone: 3(714)208-941903 [place] [address] 03-18-2025 12:27-0400 Body mass index (BMI) [Ratio] 30.7 kg/m2 Dr. Patricio Moeller MD Work Phone: 5(481)514-728403 [place] [address] 03-18-2025 12:27-0400 Body weight 76.[address] Patricio Moeller MD Work Phone: 2(987)219-721370 [address] 03-15-2025 16:04-0400 Body mass index (BMI) [Ratio] 30.7 kg/m2 Dr. Patricio Moeller MD Work Phone: [facility] 03-15-2025 16:04-0400 Body temperature 98.3 [degF] Dr. Patricio Moeller MD Work Phone: [facility] 03-15-2025 16:04-0400 Body weight 76.[address] Patricio Moeller MD Work Phone: 5(664)598-116903 [place] [address] 03-15-2025 16:04-0400 Diastolic blood pressure 91 mm[Hg] Dr. Patricio Moeller MD Work Phone: 6(172)161-423303 [place] [address] 03-15-2025 16:04-0400 Heart rate 68 /min Dr. Patricio Moeller MD Work Phone: [facility] 03-15-2025 16:04-0400 Respiratory rate 16 /min Dr. Patricio Moeller MD Work Phone: [facility] 03-15-2025 16:04-0400 SaO2% (BldA) [Mass fraction] 100 % Dr. Patricio Moeller MD Work Phone: [facility] 03-15-2025 16:04-0400 Systolic blood pressure 135 mm[Hg] Dr. Patricio Moeller MD Work Phone: 1(686)746-131503 [place] [address] 02-22-2025 13:15-0400 Body weight 74.[address] Patricio Moeller MD Work Phone: 7(340)456-822607 [place] [address] 02-22-2025 13:15-0400 Diastolic blood pressure 83 mm[Hg] Dr. Patricio Moeller MD Work Phone: 5(022)728-628907 [place] [address] 02-22-2025 13:15-0400 Heart rate 72 /min Dr. Patricio Moeller MD Work Phone: 8(035)467-266207 [place] [address] 02-22-2025 13:15-0400 Respiratory rate 18 /min Dr. Patricio Moeller MD Work Phone: 3(649)666-308207 [place] [address] 02-22-2025 13:15-0400 SaO2% (BldA) [Mass fraction] 97 % Dr. Patricio Moeller MD Work Phone: 7(060)063-330003 [place] [address] 02-22-2025 13:15-0400 Systolic blood pressure 119 mm[Hg] Dr. Patricio Moeller MD Work Phone: 3(392)464-679507 [place] [address] 02-08-2025 14:22-0400 Body height 157.[address] Patricio Moeller MD Work Phone: 8(110)099-520607 [place] [address] 02-08-2025 14:22-0400 Body mass index (BMI) [Ratio] 30.3 kg/m2 Dr. Patricio Moeller MD Work Phone: 2(995)795-544603 [place] [address] 02-08-2025 14:22-0400 Body temperature 98.3 [degF] Dr. Patricio Moeller MD Work Phone: 6(055)902-802307 [place] [address] 02-08-2025 14:22-0400 Body weight 75.[address] Patricio Moeller MD Work Phone: 5(299)926-335207 [place] [address] 02-08-2025 14:22-0400 Diastolic blood pressure 82 mm[Hg] Dr. Patricio Moeller MD Work Phone: 4(526)545-992207 [place] [address] 02-08-2025 14:22-0400 Heart rate 74 /min Dr. Patricio Moeller MD Work Phone: 3(067)111-965003 [place] [address] 02-08-2025 14:22-0400 Respiratory rate 18 /min Dr. Patricio Moeller MD Work Phone: 2(145)159-936903 [place] [address] 02-08-2025 14:22-0400 SaO2% (BldA) [Mass fraction] 98 % Dr. Patricio Moeller MD Work Phone: 8(023)233-108607 [place] [address] 02-08-2025 14:22-0400 Systolic blood pressure 114 mm[Hg] Dr. Patricio Moeller MD Work Phone: 7(266)502-036307 [place] [address] 02-01-2025 13:51-0400 Body temperature 97.6 [degF] Dr. Patricio Moeller MD Work Phone: 0(419)839-685907 [place] [address] 02-01-2025 13:51-0400 Diastolic blood pressure 69 mm[Hg] Dr. Patricio Moeller MD Work Phone: 1(079)376-157307 [place] [address] 02-01-2025 13:51-0400 Heart rate 61 /min Dr. Patricio Moeller MD Work Phone: 3(280)337-798807 [place] [address] 02-01-2025 13:51-0400 Respiratory rate 16 /min Dr. Patricio Moeller MD Work Phone: 4(286)332-417107 [place] [address] 02-01-2025 13:51-0400 SaO2% (BldA) [Mass fraction] 97 % Dr. Patricio Moeller MD Work Phone: 2(169)939-612903 [place] [address] 02-01-2025 13:51-0400 Systolic blood pressure 95 mm[Hg] Dr. Patricio Moeller MD Work Phone: 5(389)933-059007 [place] [address] 02-01-2025 11:40-0400 Body height 157.[address] Patricio Moeller MD Work Phone: 3(818)739-818107 [place] [address] 02-01-2025 11:40-0400 Body mass index (BMI) [Ratio] 29.4 kg/m2 Dr. Patricio Moeller MD Work Phone: 2(030)967-445507 [place] [address] 02-01-2025 11:40-0400 Body weight [address] Patricio Moeller MD Work Phone: [facility] 01-30-2025 06:30-0400 Body mass index (BMI) [Ratio] 30.9 kg/m2 Dr. Patricio Moeller MD Work Phone: [facility] 01-30-2025 06:30-0400 Body temperature 98.5 [degF] Dr. Patricio Moeller MD Work Phone: [facility] 01-30-2025 06:30-0400 Body weight 76.[address] Patricio Moeller MD Work Phone: 7(106)664-496503 [place] [address] 01-30-2025 06:30-0400 Diastolic blood pressure 74 mm[Hg] Dr. Patricio Moeller MD Work Phone: 3(661)848-836903 [place] [address] 01-30-2025 06:30-0400 Heart rate 77 /min Dr. Patricio Moeller MD Work Phone: 8(515)505-415903 [place] [address] 01-30-2025 06:30-0400 Respiratory rate 16 /min Dr. Patricio Moeller MD Work Phone: 2(019)371-246003 [place] [address] 01-30-2025 06:30-0400 SaO2% (BldA) [Mass fraction] 98 % Dr. Patricio Moeller MD Work Phone: [facility] 01-30-2025 06:30-0400 Systolic blood pressure 134 mm[Hg] Dr. Patricio Moeller MD Work Phone: [facility] 01-25-2025 14:02-0400 Body mass index (BMI) [Ratio] 30.2 kg/m2 Dr. Patricio Moeller MD Work Phone: [facility] 01-25-2025 14:02-0400 Body temperature 98 [degF] Dr. Patricio Moeller MD Work Phone: [facility] 01-25-2025 14:02-0400 Body weight 74.[address] Patricio Moeller MD Work Phone: [facility] 01-25-2025 14:02-0400 Diastolic blood pressure 92 mm[Hg] Dr. Patricio Moeller MD Work Phone: [facility] 01-25-2025 14:02-0400 Heart rate 74 /min Dr. Patricio Moeller MD Work Phone: [facility] 01-25-2025 14:02-0400 Respiratory rate 18 /min Dr. aPtricio Moeller MD Work Phone: [facility] 01-25-2025 14:02-0400 SaO2% (BldA) [Mass fraction] 98 % Dr. Patricio Moeller MD Work Phone: [facility] 01-25-2025 14:02-0400 Systolic blood pressure 143 mm[Hg] Dr. Patricio Moeller MD Work Phone: [facility] 01-16-2025 14:28-0400 Body height 158.8 cm Hannah Newell MD Work Phone: [facility] 01-16-2025 14:28-0400 Body mass index (BMI) [Ratio] 30.31 kg/m2 Hannah Newell MD Work Phone: [facility] 01-16-2025 14:28-0400 Body weight 76.39 kg Hannah Newell MD Work Phone: [facility] 01-04-2025 14:04-0500 Body mass index (BMI) [Ratio] 31.1 kg/m2 Dr. Patricio Moeller MD Work Phone: [facility] 01-04-2025 14:04-0500 Body weight 77.[address] Patricio Moeller MD Work Phone: [facility] 01-04-2025 14:04-0500 Diastolic blood pressure 88 mm[Hg] Dr. Patricio Moeller MD Work Phone: [facility] 01-04-2025 14:04-0500 Heart rate 62 /min Dr. Patricio Moeller MD Work Phone: [facility] 01-04-2025 14:04-0500 Respiratory rate 16 /min Dr. Patricio Moeller MD Work Phone: [facility] 01-04-2025 14:04-0500 SaO2% (BldA) [Mass fraction] 97 % Dr. Patricio Moeller MD Work Phone: [facility] 01-04-2025 14:04-0500 Systolic blood pressure 135 mm[Hg] Dr. Patricio Moeller MD Work Phone: [facility] 08-24-2024 15:11-0400 Body height 158.1 cm Wilberto Morales MD Work Phone: [facility] 08-24-2024 15:11-0400 Body mass index (BMI) [Ratio] 31.57 kg/m2 Wilberto Morales MD Work Phone: [facility] 08-24-2024 15:11-0400 Body weight 78.93 kg Wilberto Morales MD Work Phone: [facility] 08-24-2024 15:11-0400 Diastolic blood pressure 84 mm[Hg] Wilberto Morales MD Work Phone: [facility] 08-24-2024 15:11-0400 Systolic blood pressure 130 mm[Hg] Wilberto Morales MD Work Phone: [facility] 07-18-2024 14:18-0400 Body height 158.8 cm Hannah Newell MD Work Phone: [facility] 07-18-2024 14:18-0400 Body mass index (BMI) [Ratio] 31.03 kg/m2 Hannah Newell MD Work Phone: [facility] 07-18-2024 14:18-0400 Body weight 78.2 kg Hannah Newell MD Work Phone: [facility] 07-18-2024 14:18-0400 Diastolic blood pressure 86 mm[Hg] Hannah Newell MD Work Phone: [facility] 07-18-2024 14:18-0400 Heart rate 73 /min Hannah Newell MD Work Phone: [facility] 07-18-2024 14:18-0400 Systolic blood pressure 138 mm[Hg] Hannah Newell MD Work Phone: [facility] 12-24-2023 08:32-0500 Body height 158.8 cm Dalton Martino MD Work Phone: [facility] Comment on above: [facility] 12-24-2023 08:32-0500 Body mass index (BMI) [Ratio] 32.47 kg/m2 Dalton Martino MD Work Phone: [facility] 12-24-2023 08:32-0500 Body temperature 97.7 [degF] Dalton Martino MD Work Phone: [facility] 12-24-2023 08:32-0500 Body weight 81.83 kg Dalton Martino MD Work Phone: [facility] 12-24-2023 08:32-0500 Diastolic blood pressure 87 mm[Hg] Dalton Martino MD Work Phone: [facility] 12-24-2023 08:32-0500 Heart rate 63 /min Dalton Martino MD Work Phone: [facility] 12-24-2023 08:32-0500 Respiratory rate 16 /min Dalton Martino MD Work Phone: [facility] 12-24-2023 08:32-0500 Systolic blood pressure 128 mm[Hg] Dalton Martino MD Work Phone: [facility] 08-04-2023 09:53-0400 Body height 158.1 cm Wilberto Morales MD Work Phone: [facility] 08-04-2023 09:53-0400 Body weight 83.01 kg Wilberto Morales MD Work Phone: [facility] 08-04-2023 09:53-0400 Diastolic blood pressure 76 mm[Hg] Wilberto Morales MD Work Phone: [facility] 08-04-2023 09:53-0400 Systolic blood pressure 118 mm[Hg] Wilberto Morales MD Work Phone: [facility] 07-20-2023 14:19-0400 Body height 161.3 cm Maximo Zupke PA Work Phone: [facility] 07-20-2023 14:19-0400 Body mass index (BMI) [Ratio] 32.75 kg/m2 Maximo Zupke PA Work Phone: [facility] 07-20-2023 14:19-0400 Body temperature 97.7 [degF] Maximo Zupke PA Work Phone: [facility] 07-20-2023 14:19-0400 Body weight 85.19 kg Maxmio Zupke PA Work Phone: [facility] 07-20-2023 14:19-0400 Diastolic blood pressure 85 mm[Hg] Maximo Zupke PA Work Phone: [facility] 07-20-2023 14:19-0400 Heart rate 72 /min Maximo Zupke PA Work Phone: [facility] 07-20-2023 14:19-0400 Respiratory rate 16 /min Maximo Zupke PA Work Phone: [facility] 07-20-2023 14:19-0400 Systolic blood pressure 124 mm[Hg] Maximo Zupke PA Work Phone: [facility] 01-22-2023 08:44-0400 Body height 161.3 cm Maximo Zupke PA Work Phone: [facility] Comment on above: [facility] 01-22-2023 08:44-0400 Body mass index (BMI) [Ratio] 41.67 kg/m2 Maximo Zupke PA Work Phone: [facility] 01-22-2023 08:44-0400 Body temperature 97.5 [degF] Maximo Zupke PA Work Phone: [facility] 01-22-2023 08:44-0400 Body weight 108.41 kg Maximo Zupke PA Work Phone: [facility] 01-22-2023 08:44-0400 Diastolic blood pressure 76 mm[Hg] Maximo Zupke PA Work Phone: [facility] 01-22-2023 08:44-0400 Heart rate 82 /min Maximo Zupke PA Work Phone: [facility] 01-22-2023 08:44-0400 Respiratory rate 16 /min Maximo Zupke PA Work Phone: [facility] 01-22-2023 08:44-0400 Systolic blood pressure 109 mm[Hg] Maximo Zupke PA Work Phone: [facility] 01-08-2023 07:26-0500 Body height 161.3 cm Dalton Martino MD Work Phone: [facility] Comment on above: [facility] 01-08-2023 07:26-0500 Body mass index (BMI) [Ratio] 42.16 kg/m2 Dalton Martino MD Work Phone: [facility] 01-08-2023 07:26-0500 Body temperature 97.7 [degF] Dalton Martino MD Work Phone: [facility] 01-08-2023 07:26-0500 Body weight 109.68 kg Dalton Martino MD Work Phone: [facility] 01-08-2023 07:26-0500 Diastolic blood pressure 76 mm[Hg] Dalton Martino MD Work Phone: [facility] 01-08-2023 07:26-0500 Heart rate 82 /min Dalton Martino MD Work Phone: [facility] 01-08-2023 07:26-0500 Respiratory rate 16 /min Dalton Martino MD Work Phone: [facility] 01-08-2023 07:26-0500 SaO2% (BldA) [Mass fraction] 98 % Dalton Martino MD Work Phone: [facility] 01-08-2023 07:26-0500 Systolic blood pressure 121 mm[Hg] Dalton Martino MD Work Phone: [facility] 12-23-2022 13:48-0500 Body temperature 98.1 [degF] Dalton Martino MD Work Phone: [facility] 12-23-2022 13:48-0500 Diastolic blood pressure 72 mm[Hg] Dalton Martino MD Work Phone: [facility] 12-23-2022 13:48-0500 Heart rate 53 /min Dalton Martino MD Work Phone: [facility] 12-23-2022 13:48-0500 Respiratory rate 16 /min Dalton Martino MD Work Phone: [facility] 12-23-2022 13:48-0500 SaO2% (BldA) [Mass fraction] 97 % Dalton Martino MD Work Phone: [facility] 12-23-2022 13:48-0500 Systolic blood pressure 135 mm[Hg] Dalton Martino MD Work Phone: [facility] 12-04-2022 08:59-0500 Body height 161.3 cm Dalton Martino MD Work Phone: [facility] 12-04-2022 08:59-0500 Body mass index (BMI) [Ratio] 46.73 kg/m2 Dalton Martino MD Work Phone: [facility] 12-04-2022 08:59-0500 Body temperature 97.5 [degF] Dalton Martino MD Work Phone: [facility] 12-04-2022 08:59-0500 Body weight 121.56 kg Dalton Martino MD Work Phone: [facility] 12-04-2022 08:59-0500 Diastolic blood pressure 80 mm[Hg] Dalton Martino MD Work Phone: [facility] 12-04-2022 08:59-0500 Heart rate 67 /min Dalton Martino MD Work Phone: [facility] 12-04-2022 08:59-0500 Respiratory rate 18 /min Dalton Martino MD Work Phone: [facility] 12-04-2022 08:59-0500 Systolic blood pressure 115 mm[Hg] Dalton Martino MD Work Phone: [facility] 07-30-2022 13:52-0400 Body height 157.[address] Patricio Moeller Work Phone: [facility] Work Phone: 07-30-2022 13:52-0400 Body mass index (BMI) [Ratio] 47.5 kg/m2 Dr. Patricio Moeller Work Phone: [facility] Work Phone: 07-30-2022 13:52-0400 Body mass index (BMI) [Ratio] 31.3 kg/m2 Dr. Patricio Moeller MD Work Phone: [facility] 07-30-2022 13:52-0400 Body weight 117.[address] Patricio Moeller Work Phone: [facility] Work Phone: 07-30-2022 13:52-0400 Body weight 77.[address] Patricio Moeller MD Work Phone: [facility] 07-30-2022 13:52-0400 Diastolic blood pressure 96 mm[Hg] Dr. Patricio Moeller Work Phone: [facility] Work Phone: 07-30-2022 13:52-0400 Diastolic blood pressure 84 mm[Hg] Dr. Patricio Moeller MD Work Phone: [facility] 07-30-2022 13:52-0400 Heart rate 82 /min Dr. Patricio Moeller Work Phone: [facility] Work Phone: 07-30-2022 13:52-0400 Heart rate 76 /min Dr. Patricio Moeller MD Work Phone: [facility] 07-30-2022 13:52-0400 Respiratory rate 16 /min Dr. Patricio Moeller Work Phone: [facility] 07-30-2022 13:52-0400 SaO2% (BldA) [Mass fraction] 98 % Dr. Patricio Moeller Work Phone: [facility] 07-30-2022 13:52-0400 Systolic blood pressure 136 mm[Hg] Dr. Patricio Moeller Work Phone: [facility] Work Phone: 07-30-2022 13:52-0400 Systolic blood pressure 135 mm[Hg] Dr. Patricio Moeller MD Work Phone: [facility] 06-10-2022 08:22-0400 Diastolic blood pressure 92 mm[Hg] Dalton Martino MD Work Phone: [facility] 06-10-2022 08:22-0400 Heart rate 84 /min Dalton Martino MD Work Phone: [facility] 06-10-2022 08:22-0400 Respiratory rate 18 /min Dalton Martino MD Work Phone: [facility] 06-10-2022 08:22-0400 SaO2% (BldA) [Mass fraction] 97 % Dalton Martino MD Work Phone: [facility] 06-10-2022 08:22-0400 Systolic blood pressure 137 mm[Hg] Dalton Martino MD Work Phone: [facility] 06-10-2022 07:09-0400 Body height 157.5 cm Dalton Martino MD Work Phone: [facility] 06-10-2022 07:09-0400 Body mass index (BMI) [Ratio] 47.01 kg/m2 Dalton Martino MD Work Phone: [facility] 06-10-2022 07:09-0400 Body temperature 97.39 [degF] Dalton Martino MD Work Phone: [facility] 06-10-2022 07:09-0400 Body weight 116.57 kg Dalton Martino MD Work Phone: [facility] Encounters Encounter Date Encounter Type Care Provider Facility Start: 10-12-2025 ambulatory Wilberto Morales [facility] y:[facility] Start: 09-13-2025 End: 09-13-2025 ambulatory WILBERTO MORALES Facility:[facility] Start: 08-23-2025 End: 08-23-2025 ambulatory WILBERTO MORALES Facility:[facility] Start: 08-16-2025 End: 08-16-2025 ambulatory RASHEEDA DHALIWAL Facility:[facility] Start: 08-03-2025 End: 08-03-2025 ambulatory WILBERTO MORALES Facility:[facility] Start: 08-01-2025 End: 08-01-2025 ambulatory WILBERTO MORALES Facility:[facility] Start: 08-01-2025 Encounter for gynecological examination (general) (routine) without abnormal findings WILBERTO MORALES [facility] Start: 07-25-2025 End: 07-25-2025 ambulatory RASHEEDA DHALIWAL Facility:[facility] Start: 05-24-2025 End: 05-24-[address] Zaid Salazar MD -[facility] Work Phone: Start: 05-24-2025 End: 05-24-2025 ambulatory HANNAH NEWELL Work Phone: -[facility] Start: 05-24-2025 End: 05-24-[address] Patricio Moeller MD Work Phone: -[facility] Start: 05-24-2025 End: 05-24-[address] Patricio Moeller MD -[facility] [place] Work Phone: Start: 05-24-2025 End: 05-24-2025 ambulatory Patricio Moeller Facility:[facility] Start: 04-18-2025 End: 04-18-2025 Patient encounter procedure Rasheeda Farley Isra MAYA-C Work Phone: [facility] Comment on above: Iron deficiency anem ia secondary to inadequate dietary iron intake (Primary Dx); History of sleeve gastrectomy; Impaired intestinal absorption (HCC) Start: 04-18-2025 End: 04-18-2025 Telemedicine consultation with patient Rasheeda Farley Isra MAYA-C Work Phone: [facility] Start: 04-18-2025 End: 04-18-2025 ambulatory RASHEEDA DHALIWAL Facility:[facility] Start: 04-13-2025 ambulatory Patricio Moeller Facility:[facility] Start: 04-13-[address] Zaid Salazar MD -[facility] Start: 04-11-2025 Encounter for other preprocedural examination Tamra [facility] Start: 04-05-2025 End: 04-05-2025 Patient encounter procedure Rasheeda MAYA-C Work Phone: [facility] Comment on above: Stool sample Start: 04-05-2025 End: 04-05-2025 ambulatory Rasheeda L Isra MAYA-C Work Phone: [facility] Start: 04-04-2025 End: 04-04-2025 Patient encounter procedure Rasheeda Dhaliwal PA-C Work Phone: [facility] Comment on above: Anemia, unspecified type (Primary Dx); History of sleeve gastrectomy Start: 04-04-2025 End: 04-04-2025 ambulatory RASHEEDA DHALIWAL Facility:[facility] Start: 03-20-2025 End: 03-20-2025 Patient encounter procedure Agustín Francis [facility] Work Phone: Start: 03-20-2025 End: 03-20-[address] Patrciio Moeller MD Work Phone: [facility] Work Phone: Start: 03-20-2025 End: 03-20-2025 ambulatory Agustín MAYA Facility:[facility] Start: 03-18-2025 End: 03-18-2025 Emergency department patient visit Dr. Patricio Moeller MD Work Phone: -Emergency Department Work Phone: Start: 03-15-2025 End: 03-15-[address] Zaid Salazar MD -[facility] Work Phone: Start: 03-15-2025 End: 03-15-2025 ambulatory Patricio Moeller Facility:[facility] Start: 03-09-2025 Non-patient / Non-visit Trisha Manriquez [facility] Work Phone: Start: 03-09-2025 ambulatory Trisha Whitfield Facility :[facility] Start: 03-07-2025 End: 03-07-[address] Patricio Moeller MD -[facility] Work Phone: Start: 03-07-2025 End: 03-07-2025 ambulatory Patricio Moeller Facility:[facility] Start: 02-28-2025 End: 02-28-[address] Patricio Moeller MD Work Phone: [facility] Work Phone: Start: 02-28-2025 End: 02-28-[address] Patricio Moeller MD -[facility] Start: 02-28-2025 End: 02-28-2025 ambulatory Patricio Moeller Facility:[facility] Start: 02-22-2025 End: 02-22-[address] Tamra Abdullahi MD -[facility] Work Phone: Start: 02-22-2025 End: 02-22-2025 ambulatory Tamra Abdullahi Facility:[facility] Start: 02-22-2025 End: 02-22-2025 ambulatory Yessi Weiss Facility:[facility] Start: 02-22-2025 End: 02-22-2025 Non-patient / Non-visit Dr. Yessi Weiss MD -[facility] Work Phone: Start: 02-20-2025 Encounter for other preprocedural examination Patricio Moeller [facility] Start: 02-17-2025 ambulatory Tamraidania Abdullahi Facility :[facility] Start: 02-15-2025 End: 02-15-[address] Patricio Moeller MD Work Phone: [facility] Work Phone: Start: 02-15-2025 End: 02-15-[address] Patricio Moeller MD -Laboratory, [facility] Start: 02-15-2025 End: 02-15-2025 ambulatory Patricio Moeller Facility:[facility] Start: 02-08-2025 End: 02-08-[address] Tamra Abdullahi MD -[facility] Work Phone: Start: 02-08-2025 End: 02-08-2025 ambulatory Tamra Abdullahi Facility:[facility] Start: 02-01-2025 ambulatory Shon Rivera Facility :[facility] Start: 02-01-2025 Non-patient / Non-visit Shon Gary nd DO -[facility] Start: 02-01-2025 End: 02-01-2025 Admission to same day surgery center Shon Rivera DO -Endoscopy Work Phone: Start: 02-01-2025 End: 02-01-[address] Patricio Moeller MD Work Phone: [facility] Work Phone: Start: 01-30-2025 End: 01-30-2025 Patient encounter procedure Agustín MAYA -[facility] Work Phone: Start: 01-30-2025 End: 01-30-2025 ambulatory Agustín MAYA Facility:[facility] Start: 01-25-2025 End: 01-25-[address] Patricio Moeller MD Work Phone: [facility] Work Phone: Start: 01-25-2025 End: 01-25-[address] Tamra Abdullahi MD -[facility] Work Phone: Start: 01-25-2025 End: 01-25-2025 ambulatory Sarah Bealpromise Facility:[facility] Start: 01-16-2025 End: 01-16-2025 Office outpatient visit 15 minutes Hannah Newell MD Work Phone: [facility] [place] Comment on above: KARINE (obstructive sle ep apnea) (Primary Dx); BMI 30.0-30.9,adult; Obesity due to excess calories, unspecified class, unspecified whether serious comorbidity present; Intestinal malabsorption, unspecified type Start: 01-16-2025 End: 01-16-2025 ambulatory PATRICIO MOELLER [facility] Start: 01-04-2025 End: 01-04-2025 Patient encounter procedure Mary ACEVEDOC -[facility] Work Phone: Start: 01-04-2025 End: 01-04-2025 ambulatory Mary Villalobos Facility:[facility] Start: 12-20-2024 Encounter for genera l adult medical examination without abnormal findings Patricio Moeller [facility] Start: 12-09-2024 ambulatory Patricio Moeller Facility:[facility] Start: 12-07-2024 End: 12-07-2024 Patient encounter procedure Mary ACEVEDOC -[facility] Work Phone: Start: 12-07-2024 End: 12-07-2024 ambulatory Mary Villalobos Facility:[facility] Start: 11-28-2024 End: 11-28-[address] Patricio Moeller MD -Laboratory, [place] Work Phone: Start: 11-28-2024 End: 11-28-2024 ambulatory Patricio Moeller Facility:[facility] Start: 08-24-2024 End: 08-24-2024 Patient encounter procedure Wilberto Morales MD Work Phone: OB/Gynecology Comment on above: Encounter for gyneco logical examination (general) (routine) without abnormal findings (Primary Dx); Need for influenza vaccination Start: 08-24-2024 End: 08-24-2024 Patient encounter status Wilberto Morales MD Work Phone: [facility] Start: 07-18-2024 End: 07-18-2024 Office outpatient visit 25 minutes Hannah Newell MD Work Phone: [facility] Comment on above: KARINE (obstructive sle ep apnea) (Primary Dx); BMI 31.0-31.9,adult; Obesity due to excess calories, unspecified classification, unspecified whether serious comorbidity present; Deficiency of multiple nutrient elements; Intestinal malabsorption, unspecified type; Screening, lipid Start: 07-18-2024 End: 07-18-2024 ambulatory [facility] Start: 05-23-2024 End: 05-27-2024 Telephone encounter Maximo Walters PA-C Work Phone: [facility] Comment on above: Abnormal Lab Start: 02-17-2024 End: 02-17-2024 [facility] Work Phone: Start: 02-17-2024 End: 02-17-2024 Discharged Recurring [facility]-Physical Therapy Work Phone: Start: 12-24-2023 End: 12-24-2023 Office outpatient visit 15 minutes Dalton Martino MD Work Phone: [facility] Comment on above: Deficiency of multip le nutrient elements; S/P gastric sleeve procedure; Class 1 obesity due to excess calories with serious comorbidity and body mass index (BMI) of 32.0 to 32.9 in adult; KARINE (obstructive sleep apnea); Hypothyroidism, unspecified type Start: 11-23-2023 End: 11-23-2023 ambulatory [facility] Work Phone: Start: 11-23-2023 End: 11-23-2023 Patient encounter procedure [facility] Work Phone: Start: 10-16-2023 End: 10-16-2023 ambulatory [facility] Work Phone: Start: 10-16-2023 End: 10-16-2023 Patient encounter procedure [facility] Start: 08-10-2023 End: 08-10-2023 Patient encounter procedure [facility] Work Phone: Start: 08-04-2023 End: 08-04-2023 Patient encounter procedure Wilberto Morales MD Work Phone: OB/Gynecology Comment on above: Encounter for gyneco logical examination (general) (routine) without abnormal findings (Primary Dx); Screening for cervical cancer; Encounter for screening for human papillomavirus (HPV) Start: 08-04-2023 End: 08-04-2023 Patient encounter status Wilberto Morales MD Work Phone: [facility] Start: 07-21-2023 Telephone encounter Kassandra stephens RD Work Phone: [facility] [place] Comment on above: Abnormal Lab (Hypogl ycemia, elevated total protein, B12) Start: 07-20-2023 End: 07-20-2023 Office outpatient visit 25 minutes Maximo MAYA Work Phone: [facility] [place] Comment on above: Deficiency of multip le nutrient elements (Primary Dx); Class 1 obesity due to excess calories with serious comorbidity and body mass index (BMI) of 32.0 to 32.9 in adult; KARINE (obstructive sleep apnea) Start: 04-29-2023 End: 04-29-2023 ambulatory [facility] Work Phone: Start: 04-29-2023 End: 04-29-2023 Patient encounter procedure [facility] Start: 03-19-2023 End: 03-19-2023 Patient encounter procedure [facility] Start: 02-11-2023 End: 02-11-2023 ambulatory [facility] Work Phone: Start: 02-11-2023 End: 02-11-2023 Patient encounter procedure [facility] Start: 01-22-2023 End: 01-22-2023 Postop follow up visit related to original px Maximo MAYA Work Phone: [facility] Comment on above: KARINE (obstructive sle ep apnea) (Primary Dx); Deficiency of multiple nutrient elements; Morbid obesity with BMI of 40.0-44.9, adult (HCC); Encounter for postoperative care; GERD without esophagitis Start: 01-19-2023 Telephone encounter Sarah smart RD Work Phone: [facility] Comment on above: Abnormal Lab (Low ma gnesium) Start: 01-08-2023 End: 01-08-2023 Postop follow up visit related to original px Dalton Martino MD Work Phone: [facility] Comment on above: Encounter for postop erative care (Primary Dx); Hypothyroidism, unspecified type; KARINE (obstructive sleep apnea); Deficiency of multiple nutrient elements; Morbid obesity with BMI of 40.0-44.9, adult (HCC) Start: 12-23-2022 End: 12-23-2022 Evaluation and management of inpatient Ach [facility] Exam Room 2 [facility] Comment on above: Arrived Start: 12-22-2022 End: 12-23-2022 Evaluation and management of inpatient Dalton Martino MD Work Phone: [facility] Comment on above: Morbid obesity with body mass index (BMI) of 40.0 to 49.9 (HCC) (Primary Dx); Morbid (severe) obesity due to excess calories (HCC); Diaphragmatic hernia without obstruction or gangrene Start: 12-04-2022 End: 12-04-2022 ambulatory Maximo MAYA Work Phone: [facility] Comment on above: Morbid obesity due t o excess calories (HCC) (Primary Dx); Pre-operative laboratory examination Morbid obesity with body mass index (BMI) of 40.0 to 49.9 (HCC) (Primary Dx) Start: 12-04-2022 End: 12-04-2022 Subsequent hospital visit by physician Maximo MAYA Work Phone: [facility] Comment on above: Morbid obesity due t o excess calories (HCC); Pre-operative laboratory examination Start: 12-04-2022 End: 12-04-2022 Patient encounter status Maximo MAYA Work Phone: [facility] Start: 12-04-2022 End: 12-04-2022 Office outpatient visit 25 minutes Dalton Martino MD Work Phone: [facility] [place] Comment on above: Hypothyroidism, unsp ecified type (Primary Dx); Gastroesophageal reflux disease without esophagitis; Back pain, unspecified back location, unspecified back pain laterality, unspecified chronicity; Morbid obesity with BMI of 45.0-49.9, adult (CMS/HCC) (HCC); Hiatal hernia; KARINE (obstructive sleep apnea) Start: 12-02-2022 Telephone encounter Jenna Wren [facility] [place] Comment on above: Anticoagulation (Evelin enox) Start: 10-29-2022 End: 10-29-[address] Patricio Moeller Work Phone: [facility] Work Phone: Start: 10-29-2022 End: 10-29-[address] Patricio Moeller Work Phone: [facility] Start: 08-20-2022 ambulatory Patricio Moeller [facility] Start: 08-20-2022 End: 08-20-2022 Subsequent hospital visit by physician Carey Villa PSYD Work Phone: [facility] Start: 08-13-2022 Non-patient / Non-visit Dr. Zulma Moeller Work Phone: [facility] Start: 08-13-2022 End: 08-13-[address] Patricio Moeller Work Phone: [facility]-Cardi[facility] Services Start: 07-30-2022 End: 07-30-2022 Admission to same day surgery center Dr. Patricio Moeller Work Phone: [facility] Start: 07-30-2022 End: 07-30-[address] Patricio Moeller Work Phone: [facility] Start: 07-30-[address] Kevin Moeller Work Phone: [facility] Start: 07-30-[address] Patricio whyte MD Work Phone: [facility] Start: 06-25-2022 ambulatory Carey Bozena [facility] [facility] Start: 06-25-2022 End: 06-25-2022 Subsequent hospital visit by physician Carey Villa PSYD Work Phone: [facility] Start: 06-10-2022 End: 06-10-2022 Patient encounter [facility] Start: 06-10-2022 End: 06-10-2022 ambulatory Patricio Moeller [facility] Start: 06-10-2022 End: 06-10-2022 Encounter for other preprocedural examination Dalton Martino [facility] Start: 06-10-2022 End: 06-10-2022 Subsequent hospital visit by physician Dalton Martino MD Work Phone: [facility] Comment on above: Chronic superficial gastritis without bleeding; Gastroesophageal reflux disease without esophagitis Start: 05-23-2022 ambulatory Patricio Moeller [facility] [employer] [facility] Start: 05-23-2022 End: 05-23-2022 Subsequent hospital visit by physician Hannah Newell MD Work Phone: [facility] Start: 04-25-2022 ambulatory UNKNOWN PROVIDER [facility] Start: 04-25-2022 End: 04-25-2022 Subsequent hospital visit by physician Hannah Newell MD Work Phone: [facility] Start: 04-16-2022 ambulatory MAXIMO ELIZAB [facility] Start: 04-02-2022 ambulatory MAXIMO ELIZAB [facility] Start: 04-02-2022 End: 04-02-2022 Subsequent hospital visit by physician Maximo MAYA Work Phone: [facility] Comment on above: Generalized abdomina l pain Start: 03-28-2022 ambulatory UNKNOWN PROVIDER [facility] Start: 03-07-2022 ambulatory Dalton Martino [facility] Start: 02-27-2022 ambulatory Dalton Martino [facility] Start: 02-27-2022 End: 02-27-2022 Subsequent hospital visit by physician Dalton Martino MD Work Phone: [facility] Start: 01-29-2022 End: 01-29-2022 Patient encounter procedure [facility] Start: 10-23-2021 Patient encounter procedure [facility] Procedures Date Procedure Procedure Detail Performing Clinician Start: 05-24-2025 Immature reticulocyt e fraction HANNAH PRIMO Work Phone: Start: 05-24-2025 Serum inorganic phos phate measurement HANNAH SUNILManjit Work Phone: Start: 05-24-2025 Total iron binding c apacity measurement HANNAH BARBERManjit Work Phone: Start: 03-20-[address] Patricio Moeller MD Work Phone: Start: 03-18-[address] Patricio Moeller MD Work Phone: Start: 02-28-2025 Total iron binding c apacity measurement Dr. Patricio Moeller MD Work Phone: Start: 02-01-[address] Patricio campos MD Work Phone: Start: 01-25-[address] Patricio Moeller MD Work Phone: Start: 01-25-2025 Folic acid measurement, RBC Dr. Patricio Moeller MD Work Phone: Start: 01-25-2025 Vitamin D, 25-hydrox y measurement Dr. Patricio Moeller MD Work Phone: Comment on above: Vitamin D StatusDefi ciency: <20 ng/mL (50nmol/L)Insufficiency: 20-30 ng/mL (50-75 nmol/L)Sufficiency: 30-100 ng/mL (75-250 nmol/L)Toxicity: >100 ng/mL (>250 nmol/L) Start: 11-28-2024 Measurement of renal function Dr[address] Patricio Moeller MD Work Phone: Comment on above: GFR Calc Start: 08-04-2023 Microscopic observat ion [Identifier] in Cervix by Cyto stain Hannah Newell MD Work Phone: Start: 07-20-2023 Lipid 1996 panel - S ramos or Plasma Maximo MAYA Work Phone: Start: 12-23-2022 Blood count complete automated Robert Apple MD Work Phone: Start: 12-23-2022 Radiologic exam upr gi trc single contrast study Robert Apple MD Work Phone: Start: 12-23-2022 Basic metabolic pane l calcium total Robert Apple MD Work Phone: Start: 12-22-2022 PULSE OXIMETRY, CONTINUOUS Robert Apple MD Work Phone: Start: 12-22-2022 Basic metabolic pane l calcium total Robert Apple MD Work Phone: Start: 12-22-2022 End: 12-22-2022 Laps gstrc rstrictiv px longitudinal gastrectomy Dalton Martino MD Work Phone: Start: 12-22-2022 End: 12-22-2022 Unlis laparoscopic procedure liver Dalton Martino MD Work Phone: Start: 12-04-2022 Radiologic exam ches t 2 views Maximo MAYA Work Phone: Start: 06-10-2022 HM ENDOSCOPY REPORT Phy sician Generic Start: 04-02-2022 Us abdominal real ti me w/image documentation Maximo MAYA Work Phone: Plan of Treatment Date Care Activity Detail Author Start: 2060 RSV Immunization for Adults (1 - 1-dose 75+ series) RSV Immunization for Adults (1 - 1-dose 75+ series) [facility] Start: 2045 RSV Immunization aged 60 or older (1 - 1-dose 60+ series) RSV Immunization aged 60 or older (1 - 1-dose 60+ series) [facility] Start: 2035 Zoster Vaccines (1 of 2) Zoster Vaccines (1 of 2) [facility] Start: 08-04-2028 Screening for malignant neoplasm of cervix Cervical Cancer Screening [facility] Start: 07-20-2028 Lipid panel Lipid Panel [facility] Start: 08-04-2026 Screening for malignant neoplasm of cervix [facility] Start: 01-19-2026 End: 01-19-2026 Patient encounter procedure 01/19/2026 2:00 PM EDT Office Visit [facility] [address] [place] [id number] Hannah Newell MD [address] [place] [address] [facility] Start: 08-30-2025 End: 08-30-2025 Patient encounter procedure 08/30/2025 2:20 PM EDT Office Visit OB/Gynecology [address] [place] [id number] Wilberto Morales MD [address] [place] [address] Annual OB/Gynecology Comment on above: Annual Start: 07-19-2025 End: 07-19-2025 ambulatory 07/19/2025 7:15 AM EDT Results Only [facility] [address] [place] [address] [facility] Start: 07-18-2025 End: 10-17-2025 CBC W Auto Differential panel - Blood COMPLETE BLOOD COUNT AND DIFFERENTIAL Lab Routine Iron deficiency anemia secondary to inadequate dietary iron intake History of sleeve gastrectomy Impaired intestinal absorption (HCC) Expected: 07/18/2025 (Approximate), Expires: 10/17/2025 [facility] Work Phone: Comment on above: Expected: 07/18/2025 (Approximate), Expi res: 10/17/2025 Start: 07-18-2025 End: 10-17-2025 Ferritin [Mass/volume] in Serum or Plasma FERRITIN Lab Routine Iron deficiency anemia secondary to inadequate dietary iron intake History of sleeve gastrectomy Impaired intestinal absorption (HCC) Expected: 07/18/2025 (Approximate), Expires: 10/17/2025 [facility] Comment on above: Expected: 07/18/2025 (Approximate), Expi res: 10/17/2025 Start: 07-18-2025 End: 10-17-2025 Iron and Iron binding capacity panel - Serum or Plasma IRON AND TIBC Lab Routine Iron deficiency anemia secondary to inadequate dietary iron intake History of sleeve gastrectomy Impaired intestinal absorption (HCC) Expected: 07/18/2025 (Approximate), Expires: 10/17/2025 [facility] Comment on above: Expected: 07/18/2025 (Approximate), Expi res: 10/17/2025 Start: 04-18-2025 End: 04-18-2025 Patient encounter procedure 04/18/2025 8:00 AM EDT [facility] [address] [place], [place] [id number] Rasheeda Dhaliwal PA-C [address] [facility] [address] [place], [place] [address] 2 week ov with results [facility] Comment on above: 2 week ov with results Start: 04-05-2025 End: 04-05-2025 ambulatory 04/05/2025 7:15 AM EDT Results Only [facility] [address] [place] [address] [facility] Start: 04-04-2025 End: 07-04-2025 COPPER BLOOD [facility] Comment on above: Expected: 04/04/2025 (Approximate), Expi res: 07/04/2025 Start: 04-04-2025 End: 07-04-2025 Pyridoxine [Mass/volume] in Serum or Plasma VITAMIN B6/PYRIDOXIN Lab Routine Anemia, unspecified type History of sleeve gastrectomy Expected: 04/04/2025 (Approximate), Expires: 07/04/2025 [facility] Comment on above: Expected: 04/04/2025 (Approximate), Expi res: 07/04/2025 Start: 04-04-2025 End: 07-04-2025 VITAMIN B1 (THIAMINE), WHOLE BLOOD [facility] Work Phone: Comment on above: Expected: 04/04/2025 (Approximate), Expi res: 07/04/2025 Start: 04-04-2025 End: 07-04-2025 Zinc [Mass/volume] in Serum or Plasma [facility] Comment on above: Expected: 04/04/2025 (Approximate), Expi res: 07/04/2025 Start: 03-18-2025 [facility] Start: 03-15-2025 Patient referral [facility] Work Phone: Start: 02-01-2025 Colonoscopy flexible with band ligation(s) COLONOSCOPY W/BAND LIGATION [facility] Start: 02-01-2025 Patient discharge [facility] Start: 01-16-2025 End: 01-16-2025 Patient encounter procedure [facility] Start: 07-18-2024 End: 07-18-2024 Patient encounter procedure 07/18/2024 2:30 PM EDT Office Visit [facility] [address] [place] [id number] Hannah Newell MD [address] [place] [address] [facility] Start: 07-18-2024 End: 07-18-2025 25-hydroxyvitamin D3 [Mass/volume] in Serum or Plasma Vitamin D Deficiency Screening (Vit D 25) Lab Routine 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, unspecified type Expected: 07/18/2024 (Approximate), Expires: 07/18/2025 [facility] Comment on above: Expected: 07/18/2024 (Approximate), Expi res: 07/18/2025 Start: 07-18-2024 End: 07-18-2025 CBC W Auto Differential panel - Blood CBC auto differential Lab Routine 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, unspecified type Expected: 07/18/2024 (Approximate), Expires: 07/18/2025 [facility] Work Phone: Comment on above: Expected: 07/18/2024 (Approximate), Expi res: 07/18/2025 Start: 07-18-2024 End: 07-18-2025 Cobalamin (Vitamin B12) [Mass/volume] in Serum or Plasma Vitamin B12 Lab Routine 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, unspecified type Expected: 07/18/2024 (Approximate), Expires: 07/18/2025 [facility] Comment on above: Expected: 07/18/2024 (Approximate), Expi res: 07/18/2025 Start: 07-18-2024 End: 07-18-2025 Comprehensive metabolic 1998 panel - Serum or Plasma Comprehensive metabolic panel Lab Routine 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, unspecified type Expected: 07/18/2024 (Approximate), Expires: 07/18/2025 [facility] Comment on above: Expected: 07/18/2024 (Approximate), Expi res: 07/18/2025 Start: 07-18-2024 End: 07-18-2025 Ferritin [Mass/volume] in Serum or Plasma Ferritin Lab Routine 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, unspecified type Expected: 07/18/2024 (Approximate), Expires: 07/18/2025 [facility] Comment on above: Expected: 07/18/2024 (Approximate), Expi res: 07/18/2025 Start: 07-18-2024 End: 07-18-2025 Folate [Mass/volume] in Serum or Plasma Folate Lab Routine 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, unspecified type Expected: 07/18/2024 (Approximate), Expires: 07/18/2025 [facility] Comment on above: Expected: 07/18/2024 (Approximate), Expi res: 07/18/2025 Start: 07-18-2024 End: 07-18-2025 Iron and Iron binding capacity panel - Serum or Plasma Iron Lab Routine 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, unspecified type Expected: 07/18/2024 (Approximate), Expires: 07/18/2025 [facility] Comment on above: Expected: 07/18/2024 (Approximate), Expi res: 07/18/2025 Start: 07-18-2024 End: 07-18-2025 Lipid 1996 panel - Serum or Plasma Lipid panel Lab Routine Screening, lipid Expected: 07/18/2024 (Approximate), Expires: 07/18/2025 [facility] Comment on above: Expected: 07/18/2024 (Approximate), Expi res: 07/18/2025 Start: 07-18-2024 End: 07-18-2025 Magnesium [Mass/volume] in Serum or Plasma Magnesium Lab Routine 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, unspecified type Expected: 07/18/2024 (Approximate), Expires: 07/18/2025 [facility] Comment on above: Expected: 07/18/2024 (Approximate), Expi res: 07/18/2025 Start: 07-18-2024 End: 07-18-2025 Vitamin B1, whole blood ([facility]) Vitamin B1, whole blood ([facility]) Lab Routine 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, unspecified type Expected: 07/18/2024 (Approximate), Expires: 07/18/2025 [facility] Comment on above: Expected: 07/18/2024 (Approximate), Expi res: 07/18/2025 Start: 07-18-2024 End: 07-18-2025 Zinc (Sendout) Zinc (Sendout) Lab Routine 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, unspecified type Expected: 07/18/2024 (Approximate), Expires: 07/18/2025 [facility] Comment on above: Expected: 07/18/2024 (Approximate), Expi res: 07/18/2025 Start: 07-10-2024 COVID-19 Vaccine ( season) COVID-19 Vaccine ( season) [facility] Start: 07-10-2024 Covid-19 Vaccine ( season) Covid-19 Vaccine ( season) [facility] Start: 07-10-2024 Influenza vaccination Influenza Vaccine (#1) [facility] Start: 06-24-2024 End: 06-24-2024 Patient encounter procedure 06/24/2024 9:10 AM EDT Office Visit [facility] [address] [place] [phone] Hannah Newell MD 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 Class 1 obesity due to excess calories with serious comorbidity and body mass index (BMI) of 32.0 to 32.9 in adult KARINE (obstructive sleep apnea) Hypothyroidism, unspecified type Expected: 06/23/2024 (Approximate), Expires: 12/24/2024 [facility] Comment on above: Expected: 06/23/2024 (Approximate), Expi res: 12/24/2024 Start: 06-23-2024 End: 12-24-2024 CBC panel - Blood by Automated count CBC Lab Routine 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 Class 1 obesity due to excess calories with serious comorbidity and body mass index (BMI) of 32.0 to 32.9 in adult KARINE (obstructive sleep apnea) Hypothyroidism, unspecified type Expected: 06/23/2024 (Approximate), Expires: 12/24/2024 [facility] Comment on above: Expected: 06/23/2024 (Approximate), Expi res: 12/24/2024 Start: 06-23-2024 End: 12-24-2024 Cobalamin (Vitamin B12) [Mass/volume] in Serum or Plasma Vitamin B12 Lab Routine 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 Class 1 obesity due to excess calories with serious comorbidity and body mass index (BMI) of 32.0 to 32.9 in adult KARINE (obstructive sleep apnea) Hypothyroidism, unspecified type Expected: 06/23/2024 (Approximate), Expires: 12/24/2024 [facility] Comment on above: Expected: 06/23/2024 (Approximate), Expi res: 12/24/2024 Start: 06-23-2024 End: 12-24-2024 Comprehensive metabolic 1998 panel - Serum or Plasma Comprehensive metabolic panel Lab Routine 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 Class 1 obesity due to excess calories with serious comorbidity and body mass index (BMI) of 32.0 to 32.9 in adult KARINE (obstructive sleep apnea) Hypothyroidism, unspecified type Expected: 06/23/2024 (Approximate), Expires: 12/24/2024 [facility] Comment on above: Expected: 06/23/2024 (Approximate), Expi res: 12/24/2024 Start: 06-23-2024 End: 12-24-2024 Ferritin [Mass/volume] in Serum or Plasma Ferritin Lab Routine 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 Class 1 obesity due to excess calories with serious comorbidity and body mass index (BMI) of 32.0 to 32.9 in adult KARINE (obstructive sleep apnea) Hypothyroidism, unspecified type Expected: 06/23/2024 (Approximate), Expires: 12/24/2024 [facility] Comment on above: Expected: 06/23/2024 (Approximate), Expi res: 12/24/2024 Start: 06-23-2024 End: 12-24-2024 Folate [Mass/volume] in Serum or Plasma Folate Lab Routine 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 Class 1 obesity due to excess calories with serious comorbidity and body mass index (BMI) of 32.0 to 32.9 in adult KARINE (obstructive sleep apnea) Hypothyroidism, unspecified type Expected: 06/23/2024 (Approximate), Expires: 12/24/2024 [facility] Comment on above: Expected: 06/23/2024 (Approximate), Expi res: 12/24/2024 Start: 06-23-2024 End: 12-24-2024 Iron and Iron binding capacity panel - Serum or Plasma Iron Lab Routine 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 Class 1 obesity due to excess calories with serious comorbidity and body mass index (BMI) of 32.0 to 32.9 in adult KARINE (obstructive sleep apnea) Hypothyroidism, unspecified type Expected: 06/23/2024 (Approximate), Expires: 12/24/2024 [facility] Comment on above: Expected: 06/23/2024 (Approximate), Expi res: 12/24/2024 Start: 06-23-2024 End: 12-24-2024 Lipid 1996 panel - Serum or Plasma Lipid panel Lab Routine 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9 in adult KARINE (obstructive sleep apnea) Hypothyroidism, unspecified type Expected: 06/23/2024 (Approximate), Expires: 12/24/2024 [facility] Comment on above: Expected: 06/23/2024 (Approximate), Expi res: 12/24/2024 Start: 06-23-2024 End: 12-24-2024 Vitamin B1, whole blood Vitamin B1, whole blood Lab Routine 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 Class 1 obesity due to excess calories with serious comorbidity and body mass index (BMI) of 32.0 to 32.9 in adult KARINE (obstructive sleep apnea) Hypothyroidism, unspecified type Expected: 06/23/2024 (Approximate), Expires: 12/24/2024 [facility] Comment on above: Expected: 06/23/2024 (Approximate), Expi res: 12/24/2024 Start: 06-23-2024 End: 12-24-2024 Zinc Zinc Lab Routine 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 Class 1 obesity due to excess calories with serious comorbidity and body mass index (BMI) of 32.0 to 32.9 in adult KARINE (obstructive sleep apnea) Hypothyroidism, unspecified type Expected: 06/23/2024 (Approximate), Expires: [facility]: Comment on above: Expected: 06/23/2024 (Approximate), Expi res: 12/24/2024 Start: 12-24-2023 End: 12-24-2023 Patient encounter procedure 12/24/2023 8:00 AM EST Office Visit [facility] [address] [place] [address] Dalton Martino MD [address] [place] [address] [address] [place] [address] [facility] Start: 12-20-2023 End: 07-20-2024 25-hydroxyvitamin D3 [Mass/volume] in Serum or Plasma Vitamin D Deficiency Screening (Vit D 25) Lab Routine Deficiency of multiple nutrient elements Class 1 obesity due to excess calories with serious comorbidity and body mass index (BMI) of 32.0 to 32.9 in adult Expected: 12/20/2023 (Approximate), Expires: 07/20/2024 [facility] Comment on above: Expected: 12/20/2023 (Approximate), Expi res: 07/20/2024 Start: 12-20-2023 End: 07-20-2024 CBC panel - Blood by Automated count CBC Lab Routine Deficiency of multiple nutrient elements Class 1 obesity due to excess calories with serious comorbidity and body mass index (BMI) of 32.0 to 32.9 in adult Expected: 12/20/2023 (Approximate), Expires: 07/20/2024 [facility] Comment on above: Expected: 12/20/2023 (Approximate), Expi res: 07/20/2024 Start: 12-20-2023 End: 07-20-2024 Cobalamin (Vitamin B12) [Mass/volume] in Serum or Plasma Vitamin B12 Lab Routine Deficiency of multiple nutrient elements Class 1 obesity due to excess calories with serious comorbidity and body mass index (BMI) of 32.0 to 32.9 in adult Expected: 12/20/2023 (Approximate), Expires: 07/20/2024 [facility] Comment on above: Expected: 12/20/2023 (Approximate), Expi res: 07/20/2024 Start: 12-20-2023 End: 07-20-2024 Comprehensive metabolic 1998 panel - Serum or Plasma Comprehensive metabolic panel Lab Routine Deficiency of multiple nutrient elements Class 1 obesity due to excess calories with serious comorbidity and body mass index (BMI) of 32.0 to 32.9 in adult Expected: 12/20/2023 (Approximate), Expires: 07/20/2024 [facility] Comment on above: Expected: 12/20/2023 (Approximate), Expi res: 07/20/2024 Start: 12-20-2023 End: 07-20-2024 Ferritin [Mass/volume] in Serum or Plasma Ferritin Lab Routine Deficiency of multiple nutrient elements Class 1 obesity due to excess calories with serious comorbidity and body mass index (BMI) of 32.0 to 32.9 in adult Expected: 12/20/2023 (Approximate), Expires: 07/20/2024 [facility] Comment on above: Expected: 12/20/2023 (Approximate), Expi res: 07/20/2024 Start: 12-20-2023 End: 07-20-2024 Folate [Mass/volume] in Serum or Plasma Folate Lab Routine Deficiency of multiple nutrient elements Class 1 obesity due to excess calories with serious comorbidity and body mass index (BMI) of 32.0 to 32.9 in adult Expected: 12/20/2023 (Approximate), Expires: 07/20/2024 [facility] Comment on above: Expected: 12/20/2023 (Approximate), Expi res: 07/20/2024 Start: 12-20-2023 End: 07-20-2024 Iron and Iron binding capacity panel - Serum or Plasma Iron Lab Routine Deficiency of multiple nutrient elements Class 1 obesity due to excess calories with serious comorbidity and body mass index (BMI) of 32.0 to 32.9 in adult Expected: 12/20/2023 (Approximate), Expires: 07/20/2024 [facility] Comment on above: Expected: 12/20/2023 (Approximate), Expi res: 07/20/2024 Start: 12-20-2023 End: 07-20-2024 Lipid 1996 panel - Serum or Plasma Lipid panel Lab Routine Deficiency of multiple nutrient elements Class 1 obesity due to excess calories with serious comorbidity and body mass index (BMI) of 32.0 to 32.9 in adult Expected: 12/20/2023 (Approximate), Expires: 07/20/2024 [facility] Comment on above: Expected: 12/20/2023 (Approximate), Expi res: 07/20/2024 Start: 12-20-2023 End: 07-20-2024 Magnesium [Mass/volume] in Serum or Plasma Magnesium Lab Routine Deficiency of multiple nutrient elements Class 1 obesity due to excess calories with serious comorbidity and body mass index (BMI) of 32.0 to 32.9 in adult Expected: 12/20/2023 (Approximate), Expires: 07/20/2024 [facility] Comment on above: Expected: 12/20/2023 (Approximate), Expi res: 07/20/2024 Start: 12-20-2023 End: 07-20-2024 Vitamin B1, whole blood Vitamin B1, whole blood Lab Routine Deficiency of multiple nutrient elements Class 1 obesity due to excess calories with serious comorbidity and body mass index (BMI) of 32.0 to 32.9 in adult Expected: 12/20/2023 (Approximate), Expires: 07/20/2024 [facility] Comment on above: Expected: 12/20/2023 (Approximate), Expi res: 07/20/2024 Start: 12-20-2023 End: 07-20-2024 Zinc Zinc Lab Routine Deficiency of multiple nutrient elements Class 1 obesity due to excess calories with serious comorbidity and body mass index (BMI) of 32.0 to 32.9 in adult Expected: 12/20/2023 (Approximate), Expires: 07/20/2024 [facility] Work Phone: Comment on above: Expected: 12/20/2023 (Approximate), Expi res: 07/20/2024 Start: 11-23-2023 Thiamine measurement [facility] Start: 10-22-2023 End: 07-23-2024 25-hydroxyvitamin D3 [Mass/volume] in Serum or Plasma Vitamin D Deficiency Screening (Vit D 25) Lab Routine High vitamin D level Expected: 10/22/2023, Expires: 07/23/2024 [facility] Work Phone: Comment on above: Expected: 10/22/2023, Expires: Start: 10-22-2023 End: 07-23-2024 Cobalamin (Vitamin B12) [Mass/volume] in Serum or Plasma Vitamin B12 Lab Routine High serum vitamin B12 Expected: 10/22/2023, Expires: 07/23/2024 [facility] Comment on above: Expected: 10/22/2023, Expires: Start: 10-22-2023 End: 07-23-2024 Comprehensive metabolic 1998 panel - Serum or Plasma Comprehensive metabolic panel Lab Routine Low glucose level Elevated total protein Expected: 10/22/2023 (Approximate), Expires: 07/23/2024 [facility] Comment on above: Expected: 10/22/2023 (Approximate), Expi res: 07/23/2024 Start: 07-20-2023 End: 07-20-2023 Patient encounter procedure 07/20/2023 Office Visit Bariatrics Maximo Walters PA [address] [place] [address] [facility] Start: 07-10-2023 COVID-19 Vaccine () COVID-19 Vaccine () [facility] Start: 07-10-2023 Influenza vaccination Influenza Vaccine (#1) [facility] Start: 06-27-2023 Depression Monitoring Depression Monitoring [facility] Start: 03-26-2023 End: 03-26-2023 Patient encounter procedure 03/26/2023 Office Visit Bariatrics Dalton Martino MD [address] [place], [place] [id number] [facility] Start: 03-24-2023 End: 01-23-2024 CBC panel - Blood by Automated count CBC Lab Routine KARINE (obstructive sleep apnea) Deficiency of multiple nutrient elements Morbid obesity with BMI of 40.0-44.9, adult ([facility]) Encounter for postoperative care Expected: 03/24/2023 (Approximate), Expires: 01/23/2024 [facility] Comment on above: Expected: 03/24/2023 (Approximate), Expi res: 01/23/2024 Start: 03-24-2023 End: 01-23-2024 Cobalamin (Vitamin B12) [Mass/volume] in Serum or Plasma Vitamin B12 Lab Routine KARINE (obstructive sleep apnea) Deficiency of multiple nutrient elements Morbid obesity with BMI of 40.0-44.9, adult ([facility]) Encounter for postoperative care Expected: 03/24/2023 (Approximate), Expires: 01/23/2024 [facility] Comment on above: Expected: 03/24/2023 (Approximate), Expi res: 01/23/2024 Start: 03-24-2023 End: 01-23-2024 Comprehensive metabolic 1998 panel - Serum or Plasma Comprehensive metabolic panel Lab Routine KARINE (obstructive sleep apnea) Deficiency of multiple nutrient elements Morbid obesity with BMI of 40.0-44.9, adult ([facility]) Encounter for postoperative care Expected: 03/24/2023 (Approximate), Expires: 01/23/2024 [facility] Comment on above: Expected: 03/24/2023 (Approximate), Expi res: 01/23/2024 Start: 03-24-2023 End: 01-23-2024 Ferritin [Mass/volume] in Serum or Plasma Ferritin Lab Routine KARINE (obstructive sleep apnea) Deficiency of multiple nutrient elements Morbid obesity with BMI of 40.0-44.9, adult ([facility]) Encounter for postoperative care Expected: 03/24/2023 (Approximate), Expires: 01/23/2024 [facility] Comment on above: Expected: 03/24/2023 (Approximate), Expi res: 01/23/2024 Start: 03-24-2023 End: 01-23-2024 Folate [Mass/volume] in Serum or Plasma Folate Lab Routine KARINE (obstructive sleep apnea) Deficiency of multiple nutrient elements Morbid obesity with BMI of 40.0-44.9, adult ([facility]) Encounter for postoperative care Expected: 03/24/2023 (Approximate), Expires: 01/23/2024 [facility] Comment on above: Expected: 03/24/2023 (Approximate), Expi res: 01/23/2024 Start: 03-24-2023 End: 01-23-2024 Iron and Iron binding capacity panel - Serum or Plasma Iron Lab Routine KARINE (obstructive sleep apnea) Deficiency of multiple nutrient elements Morbid obesity with BMI of 40.0-44.9, adult ([facility]) Encounter for postoperative care Expected: 03/24/2023 (Approximate), Expires: 01/23/2024 [facility] Comment on above: Expected: 03/24/2023 (Approximate), Expi res: 01/23/2024 Start: 03-24-2023 End: 01-23-2024 Magnesium [Mass/volume] in Serum or Plasma Magnesium Lab Routine KARINE (obstructive sleep apnea) Deficiency of multiple nutrient elements Morbid obesity with BMI of 40.0-44.9, adult ([facility]) Encounter for postoperative care Expected: 03/24/2023 (Approximate), Expires: 01/23/2024 [facility] Comment on above: Expected: 03/24/2023 (Approximate), Expi res: 01/23/2024 Start: 03-24-2023 End: 01-23-2024 Zinc Zinc Lab Routine KARINE (obstructive sleep apnea) Deficiency of multiple nutrient elements Morbid obesity with BMI of 40.0-44.9, adult ([facility]) Encounter for postoperative care Expected: 03/24/2023 (Approximate), [facility]: [facility]: Comment on above: Expected: 03/24/2023 (Approximate), Expi res: 01/23/2024 Start: 02-19-2023 End: 01-20-2024 Magnesium [Mass/volume] in Serum or Plasma Magnesium Lab Routine Low magnesium level Expected: 02/19/2023 (Approximate), Expires: 01/20/2024 [facility] Work [facility]: Comment on above: Expected: 02/19/2023 (Approximate), Expi res: 01/20/2024 Start: 01-22-2023 End: 01-22-2023 Patient encounter procedure 01/22/2023 Office Visit Bariatrics Maximo Walters PA [address] [place] [address] [facility] Start: 01-15-2023 End: 01-09-2024 CBC panel - Blood by Automated count CBC Lab Routine KARINE (obstructive sleep apnea) Deficiency of multiple nutrient elements Morbid obesity with BMI of 40.0-44.9, adult (HCC) Encounter for postoperative care Expected: 01/15/2023 (Approximate), Expires: 01/09/2024 [facility] Comment on above: Expected: 01/15/2023 (Approximate), Expi res: 01/09/2024 Start: 01-15-2023 End: 01-09-2024 Cobalamin (Vitamin B12) [Mass/volume] in Serum or Plasma Vitamin B12 Lab Routine KARINE (obstructive sleep apnea) Deficiency of multiple nutrient elements Morbid obesity with BMI of 40.0-44.9, adult ([facility]) Encounter for postoperative care Expected: 01/15/2023 (Approximate), Expires: 01/09/2024 [facility] Comment on above: Expected: 01/15/2023 (Approximate), Expi res: 01/09/2024 Start: 01-15-2023 End: 01-09-2024 Comprehensive metabolic 1998 panel - Serum or Plasma Comprehensive metabolic panel Lab Routine KARINE (obstructive sleep apnea) Deficiency of multiple nutrient elements Morbid obesity with BMI of 40.0-44.9, adult ([facility]) Encounter for postoperative care Expected: 01/15/2023 (Approximate), Expires: 01/09/2024 [facility] Comment on above: Expected: 01/15/2023 (Approximate), Expi res: 01/09/2024 Start: 01-15-2023 End: 01-09-2024 Ferritin [Mass/volume] in Serum or Plasma Ferritin Lab Routine KARINE (obstructive sleep apnea) Deficiency of multiple nutrient elements Morbid obesity with BMI of 40.0-44.9, adult ([facility]) Encounter for postoperative care Expected: 01/15/2023 (Approximate), Expires: 01/09/2024 [facility] Comment on above: Expected: 01/15/2023 (Approximate), Expi res: 01/09/2024 Start: 01-15-2023 End: 01-09-2024 Folate [Mass/volume] in Serum or Plasma Folate Lab Routine KARINE (obstructive sleep apnea) Deficiency of multiple nutrient elements Morbid obesity with BMI of 40.0-44.9, adult ([facility]) Encounter for postoperative care Expected: 01/15/2023 (Approximate), Expires: 01/09/2024 [facility] Comment on above: Expected: 01/15/2023 (Approximate), Expi res: 01/09/2024 Start: 01-15-2023 End: 01-09-2024 Iron and Iron binding capacity panel - Serum or Plasma Iron Lab Routine KARINE (obstructive sleep apnea) Deficiency of multiple nutrient elements Morbid obesity with BMI of 40.0-44.9, adult ([facility]) Encounter for postoperative care Expected: 01/15/2023 (Approximate), Expires: 01/09/2024 [facility] Comment on above: Expected: 01/15/2023 (Approximate), Expi res: 01/09/2024 Start: 01-15-2023 End: 01-09-2024 Magnesium [Mass/volume] in Serum or Plasma Magnesium Lab Routine KARINE (obstructive sleep apnea) Deficiency of multiple nutrient elements Morbid obesity with BMI of 40.0-44.9, adult ([facility]) Encounter for postoperative care Expected: 01/15/2023 (Approximate), Expires: 01/09/2024 [facility] Comment on above: Expected: 01/15/2023 (Approximate), Expi res: 01/09/2024 Start: 01-15-2023 End: 01-09-2024 Zinc Zinc Lab Routine KARINE (obstructive sleep apnea) Deficiency of multiple nutrient elements Morbid obesity with BMI of 40.0-44.9, adult ([facility]) Encounter for postoperative care Expected: 01/15/2023 (Approximate), Expires: 01/09/2024 [facility] Work Phone: Comment on above: Expected: 01/15/2023 (Approximate), Expi res: 01/09/2024 Start: 01-01-2023 End: 01-01-2023 Patient encounter procedure Weight [facility] Start: 12-22-2022 End: 12-22-2022 Admission to same day surgery center 12/22/2022 Surgery Procedural Dalton Martino MD [address] [place] [address] [address] [place] [address] LAPAROSCOPY SLEEVE GASTRECTOMY WITH LIVER WEDGE BIOPSY WITH HIATAL HERNIA REPAIR, POSSIBLE OPEN [52802 (CPT )] [facility] Comment on above: LAPAROSCOPY SLEEVE GASTRECTOMY WITH LIVE R WEDGE BIOPSY WITH HIATAL HERNIA REPAIR, POSSIBLE OPEN [83180 (CPT )] Start: 12-22-2022 End: 12-22-2022 Laps gstrc rstrictiv px longitudinal gastrectomy LAPAROSCOPY GASTRIC RESTRICTIVE PROCEDURE SLEEVE GASTRECTOMY Morbid (severe) obesity due to excess calories (HCC) Diaphragmatic hernia without obstruction or gangrene 12/22/2022 10:30 AM EST [facility] Operating Room Start: 12-22-2022 End: 12-22-2022 Laps rpr paraesphgl hrna incl fundplsty w/o mesh LAPAROSCOPY REPAIR PARAESOPHAGEAL HERNIA INCLUDING FUNDOPLASTY Morbid (severe) obesity due to excess calories (HCC) Diaphragmatic hernia without obstruction or gangrene 12/22/2022 10:30 AM EST [facility] Operating Room Start: 12-22-2022 Subsequent hospital visit by physician 12/22/2022 Hospital Encounter Procedural Dalton Martino MD [address] [place] [address] [facility] MAIN OR Start: 12-22-2022 End: 12-22-2022 Unlis laparoscopic procedure liver UNLISTED LAPAROSCOPIC PROCEDURE LIVER Morbid (severe) obesity due to excess calories (HCC) Diaphragmatic hernia without obstruction or gangrene 12/22/2022 10:30 AM EST [facility] Operating Room Start: 12-15-2022 End: 12-15-2022 Admission to establishment [facility] Pre-Admit Testing Start: 07-10-2022 Influenza vaccination [facility] Start: 06-25-2022 End: 06-25-2022 Patient encounter procedure 06/25/2022 Procedure visit [facility] Bariatric [facility] Start: 06-10-2022 End: 06-10-2022 Patient encounter procedure 06/10/2022 Appointment IP Unit Dalton Martino MD [address] [facility] [place] [address] Endoscopy Start: 06-09-2022 Influenza vaccination Flu vaccine (#1) [facility] Start: 05-23-2022 End: 05-23-2022 Patient encounter procedure 05/23/2022 Office Visit Weight Management Hannah Newell MD [address] [place] [address] [address] [place] [address] [facility] Bariatric [facility] Start: 04-25-2022 End: 04-25-2022 Patient encounter procedure 04/25/2022 Office Visit Weight Management Hannah Newell MD [address] [place] [address] [facility] Start: 04-16-2022 End: 04-16-2022 Patient encounter procedure 04/16/2022 Appointment Radiology Maximo Walters PA [address] [place], [place] [id number] [facility] Start: 03-28-2022 End: 03-28-2022 Patient encounter procedure 03/28/2022 Office Visit Weight Management Hannah Newell MD [address] [place] [address] [facility] Start: 03-07-2022 End: 03-07-2022 Patient encounter procedure 03/07/2022 Office Visit Weight Management Sarah Antoine, MS, RD, LD [address] [place], [place] [id number] [facility] Start: 12-18-2021 COVID-19 Vaccine (4 - Booster for Moderna series) COVID-19 Vaccine (4 - Booster for Moderna series) [facility] Start: 12-18-2021 Covid-19 Vaccine (4 - Moderna series) Covid-19 Vaccine (4 - Moderna series) [facility] Start: 2020 Diabetes screen Diabetes screen [facility] Start: 2015 HPV Testing HPV Testing [facility] Start: 2015 Screening for malignant neoplasm of cervix [facility] Start: 2006 Pap Testing Pap Testing [facility] Start: 2006 Screening for malignant neoplasm of cervix Pap smear [facility] Start: 2004 DTaP/Tdap/Td vaccine (1 - Tdap) DTaP/Tdap/Td vaccine (1 - Tdap) [facility] Start: 2004 DTaP/Tdap/Td Vaccines (1 - Tdap) DTaP/Tdap/Td Vaccines (1 - Tdap) [facility] Start: 2004 Hepatitis A Vaccines (1 of 2 - Risk 2-dose series) Hepatitis A Vaccines (1 of 2 - Risk 2-dose series) [facility] Start: 2004 Hepatitis B Vaccine (1 of 3 - 19+ 3-dose series) Hepatitis B Vaccine (1 of 3 - 19+ 3-dose series) [facility] Start: 2004 Hepatitis B Vaccines (1 of 3 - 19+ 3-dose series) Hepatitis B Vaccines (1 of 3 - 19+ 3-dose series) [facility] Start: 2004 Urine microalbumin profile DTaP,Tdap,Td Vaccine (1 - Tdap) [facility] Start: 2003 Annual PCP Team Chronic Disease Visit Annual PCP Team Chronic Disease Visit [facility] Start: 2003 Anxiety Screening Anxiety Screening [facility] Start: 2003 [facility]atitis C [facility] Start: 2003 Hepatitis C Screening Hepatitis C Screening [facility] Start: 2003 HIV Screening HIV Screening [facility] Start: 2003 HIV screening HIV Screening [facility] Start: 2003 Thyroid stimulating hormone measurement TSH [facility] Start: 2000 HIV screening HIV screen [facility] Start: 1998 Varicella vaccination Varicella Vaccines (1 of 2 - 13+ 2-dose series) [facility] Start: 1997 Depression Monitoring Depression Monitoring [facility] Start: 1997 Depression Screen Depression Screen [facility] Start: 1997 Depression Screening Depression Screening [facility] Start: 1990 COVID-19 Vaccine (1) COVID-19 Vaccine (1) [facility] Start: 1986 Hepatitis A Vaccines (1 of 2 - Risk 2-dose series) Hepatitis A Vaccines (1 of 2 - Risk 2-dose series) [facility] Start: 1986 MMR Vaccines (1 of 1 - Standard series) MMR Vaccines (1 of 1 - Standard series) [facility] Start: 1986 Varicella vaccination Varicella Vaccines (1 of 2 - 2-dose childhood series) [facility] Start: 1986 Varicella vaccine (1 of 2 - 2-dose childhood series) Varicella vaccine (1 of 2 - 2-dose childhood series) [facility] Start: 03-27-1986 COVID-19 Vaccine (#1) COVID-19 Vaccine (#1) [facility] Start: 1985 Hepatitis B Vaccine (1 of 3 - 3-dose series) Hepatitis B Vaccine (1 of 3 - 3-dose series) [facility] Start: 1985 Hepatitis B Vaccines (1 of 3 - 3-dose series) Hepatitis B Vaccines (1 of 3 - 3-dose series) [facility] Start: 1985 HIV screening HIV Screening [facility] Start: 1985 Lipid panel Lipid Panel [facility] Start: 1985 Thyroid stimulating hormone measurement TSH Level [facility] C reactive protein [Mass/volume] in Serum or Plasma [facility] C reactive protein [Mass/volume] in Serum or Plasma [facility] CBC W Auto Different ial panel - Blood [facility] CBC W Auto Different ial panel - Blood [facility] Choriogonadotropin ( test) [Presence] in Urine POCT , urine Point of Care Testing Routine 12/22/2022 8:47 AM EST [facility] Work Phone: Cobalamin (Vitamin B 12) [Mass/volume] in Serum or Plasma [facility] metabo lic 1999 panel - Serum or Plasma [facility] metabo lic 1999 panel - Serum or Plasma [facility] Erythrocyte sediment ation rate [facility] Erythrocyte sediment ation rate [facility] Ferritin [Mass/volum e] in Serum or Plasma [facility] Ferritin [Mass/volum e] in Serum or Plasma [facility] Folate [Moles/volume ] in Serum or Plasma [facility] Folate [Moles/volume ] in Serum or Plasma [facility] Hemoglobin.gastroint estinal .lower [Presence] in Stool by Immunoassay IMMUNOCHEMICAL FECAL OCCULT BLOOD TEST Lab Routine Anemia, unspecified type History of sleeve gastrectomy Ordered: 04/04/2025 [facility] Comment on above: Ordered: 04/04/2025 Iron and Iron bindin g capacity panel - Serum or Plasma [facility] Iron and Iron bindin g capacity panel - Serum or Plasma [facility] Lactate dehydrogenas e measurement [facility] Lactate dehydrogenas e measurement [facility] Magnesium measurement [facility] OUTSIDE PROCEDURE SCAN OUTSIDE P ROCEDURE SCAN Procedures Ordered: 12/04/2022 [facility] Comment on above: Ordered: 12/04/2022 PAP TEST PAP TEST Lab Narinder savage Encounter for gynecological examination (general) (routine) without abnormal findings Screening for cervical cancer Encounter for screening for human papillomavirus (HPV) 08/04/2023 10:54 AM EDT [facility] Work Phone: Patient Education Dizziness Rolly quintana Causes [facility] Work Phone: Patient referral [facility] Work Phone: Reticulocyte count [facility] Serum inorganic phos phate measurement [facility] Tissue exam [facility] Work Phone: Comment on above: Release Upon Ordering for 1 Occurrences starting 12/22/2022, 1 completed Vitamin B12 measurement [facility] Zinc [Mass/volume] i n Serum or Plasma [facility] Immunizations Immunization Date Immunization Notes Care Provider Loco mahan 08-24-2024 influenza, seasonal, injectable Wilberto Morales MD Work Phone: [facility] 08-10-2023 influenza, injectabl e, quadrivalent, preservative free Wilberto Morales MD Work Phone: [facility] 09-03-2022 influenza, injectabl e, quadrivalent, contains preservative Wilberto Morales MD Work Phone: [facility] Work Phone: 09-03-2022 influenza virus vaccine, unspecified formulation Maximo MAYA Work Phone: [facility] 10-23-2021 influenza, injectabl e, quadrivalent, contains preservative Wilberto Morales MD Work Phone: [facility] Work Phone: 08-24-2020 influenza, injectabl e, quadrivalent, preservative free Wilberto Morales MD Work Phone: [facility] Work Phone: 08-10-2017 influenza, seasonal, injectable Wilberto Morales MD Work Phone: [facility] Work Phone: 09-21-2016 influenza, injectabl e, quadrivalent, preservative free [facility] 09-21-2016 influenza, seasonal, injectable [facility] 09-21-2016 influenza, seasonal, injectable, preservative free Wilberto Morales MD Work Phone: [facility] Work Phone: 09-18-2015 influenza, injectabl e, quadrivalent, preservative free [facility] 09-18-2015 influenza, seasonal, injectable [facility] 09-18-2015 influenza, seasonal, injectable, preservative free Wilberto Morales MD Work Phone: [facility] Work Phone: 09-18-2014 influenza, seasonal, injectable Wilberto Morales MD Work Phone: [facility] Work Phone: Payers Date Payer Category Payer Unknown [id number] 2025 Unknown [id number] 2024 Self-pay [id number] 2021 Commercial Managed [facility] [id number] 2019 Private Health Insurance 2013 Private Health Insurance [id number] 1985 Unknown [id number] 2.16.840.1.709948.3.579. 2.668 1985 Unknown [id number] 2.840.1.640648.3.579. 2. 1985 Unknown [id number] 2.840.1.071329.3.579. 2 1985 Unknown [id number] 2.840.1.018036.3.579. 2 1985 Unknown [id number] 2.840.1.665677.3.579. 2 1985 Unknown [id number] 2.840.1.614601.3.579. 2 1985 Unknown [id number] 2.0.1.628589.3.579. 2 1985 Unknown [id number] 2.0.1.299322.3.579. 2 1985 Unknown [id number] 2..1.517382.3.579. 2 1985 Unknown [id number] 2.0.1.216687.3.579. 2 1985 Unknown [id number] .0.1.388177.3.579. 2668 Unknown [id number] 840.1.349119.3.579. 2.462 Unknown [id number] .1.330590.3.579. 2.462 Unknown [id number] .840.1.664545.3.579. 2.462 Unknown [id number] 12.25.830.1.343373.3.579. 2.462 Unknown [id number] 2.840.1.962719.3.579. 2.462 Unknown [id number] 2.840.1.062333.3.579. 2.462 Unknown [id number] 2.840.1.986758.3.579. 2.462 Unknown [id number] 2.16.840.1.899191.3.579. 2.462 Unknown [id number] 2.16.840.1.438792.3.579. 2.462 Unknown [id number] 2.16.840.1.059634.3.579. 2.462 Unknown [id number] 2.16.840.1.084605.3.579. 2.462 Unknown [id number] 2.840.1.656400.3.579. 2.462 Unknown [id number] 2.840.1.388670.3.579. 2.462 Unknown [id number] 2.840.1.591137.3.579. 2.462 Unknown [id number] 2.840.1.810934.3.579. 2.462 Unknown [id number] 2.840.1.883310.3.579. 2.462 Unknown [id number] 2.840.1.752140.3.579. 2.462 Unknown [id number] 2.840.1.364515.3.579. 2.462 Unknown [id number] 2.840.1.282307.3.579. 2.462 Unknown [id number] 2.840.1.539899.3.579. 2.462 Unknown [id number] 2.840.1.224136.3.579. 2.462 Unknown [id number] 2.840.1.065643.3.579. 2.462 Unknown [id number] 2.840.1.794413.3.579. 2.462 Unknown [id number] 2.840.1.684816.3.579. 2.462 Unknown [id number] 2.840.1.130504.3.579. 2.462 Social History Date Type Detail Facility Start: 09-20-2016 End: 07-30-2022 Tobacco smoking status NHIS Unknown if ever smoked [facility] Start: 1985 Sex Assigned At Female [facility] Start: 02-27-2022 End: 03-18-2025 Tobacco smoking status NHIS Ex-smoker [facility] [employer] Phone: History of tobacco use Cigarette Smoker [facility] Work Phone: Start: 02-27-2022 End: 08-04-2023 Tobacco use and exposure Smokeless tobacco non-user [facility] Work Phone: Start: 02-27-2022 End: 08-24-2024 Alcohol intake Current drinker of alcohol (finding) [facility] Phone: Start: 02-27-2022 End: 08-04-2023 Alcohol intake [facility] Start: 1985 Sex Assigned At Not on file [facility] Work Phone: History of tobacco use Current smoker [facility] Phone: Start: 05-31-2022 End: 07-20-2023 Exposure to SARS-CoV-2 (event) Not sure [facility] Start: 01-22-2023 End: 01-16-2025 Alcohol intake Ex-drinker (finding) [facility] Start: 07-20-2023 End: 08-04-2023 Tobacco use panel [facility] Start: 08-04-2023 Tobacco smoking status WIIS Never smoked tobacco [facility] How hard is it for you to pay for the very basics like food, housing, medical care, and heating Not hard at all [facility] (I/We) worried whether (my/our) food would run out before (I/we) got money to buy more. Never true [facility] Start: 12-16-2019 Alcohol Comment Social [facility] Start: 06-09-2022 End: 03-04-2025 Sex Female (finding) [facility] NEGATED: Highlighted row Not [facility] Medical Equipment Procedure Code Equipment Code Equipment Origin al Text Equipment Identifier Dates Colonoscopy SHORT SHOT HEMRRHOIDAL BAND FDA Start: 02-01-2025 Colonoscopy SHORT SHOT HEMRRHOIDAL BAND FDA Start: 02-01-2025 Colonoscopy SHORT SHOT HEMRRHOIDAL BAND FDA Start: 02-01-2025 Colonoscopy SHORT SHOT HEMRRHOIDAL BAND FDA Start: 02-01-2025 Colonoscopy SHORT SHOT HEMRRHOIDAL BAND FDA Start: 02-01-2025 Colonoscopy SHORT SHOT HEMRRHOIDAL BAND FDA Start: 02-01-2025 Goals Date Patient Goal Desired Activity /State Functional Status Date Assessment Result Facility 11-28-2020 Are you deaf, or do you have serious difficulty hearing No 11/28/2020 2:02 PM Wilberto Candelaria RN No [facility] 11-28-2020 Are you blind, or do you have serious difficulty seeing, even when wearing glasses No 11/28/2020 2:02 PM Wilberto Candelaria RN No [facility] 11-28-2020 Do you have serious difficulty walking or climbing stairs No 11/28/2020 2:02 PM Wilberto Candelaria RN No [facility] 11-28-2020 Do you have difficul ty dressing or bathing No 11/28/2020 2:02 PM Wilberto Candelaria RN No [facility] 11-28-2020 Because of a physica l, mental, or emotional condition, do you have difficulty doing errands alone such as visiting a physician's office or shopping No 11/28/2020 2:02 PM Wilberto Candelaria RN No [facility] Mental Status Date Assessment Result Facility 04-13-2025 Cognitive function Awake;Alert;A ppropriate; Follows Commands [facility] Work Phone: 03-30-2025 Cognitive function Arousable To Voice/Nam e [facility] Work Phone: 03-18-2025 Cognitive function Awake;Alert;A ppropriate; Follows Commands [facility] Work Phone: 02-01-2025 Cognitive function Voice/Name;Touch/Mona mcbride [facility] Work Phone: 11-28-2020 Because of a physica l, mental, or emotional condition, do you have serious difficulty concentrating, remembering, or making decisions No 11/28/2020 2:02 PM Wilberto Candelaria RN No [facility] Clinical Notes 06-10-2022 to 08-23-2025 Note Date & Type Note Facility 08-23-2025 Note HNO ID: [id number] Author: WILBERTO MORALES MD Service: ? Author Type: Physician Type: Progress Notes Filed: 08/23/2025 10:41 Note Text: Lana Adame presents for hysteroscopy. Indication: Menorrhagia. Age: [age] year old LMP: Patient's last menstrual period was 07/30/2025 (exact date). Contraception: vasectomy test: negative VS: LMP 07/30/2025 UNIVERSAL PROTOCOL / SAFETY CHECKLIST Procedure to be Performed: Office hysteroscopy with endometrial biopsy, possible polyp resection Sign In: A Moment of CARE was completed. Appropriate PPE (Personal Protective Equipment) worn by all providers involved with the procedure. Special equipment utilized endosee. Patient/Surrogate Stated/Verified: Patient name, Date of , Relevant allergies, and The intended procedure Time Out: Relevant labs, photos, and/or imaging studies have been reviewed. Intended patient and procedure match the source document(s) (e.g. consent, HANDP, associated studies [imaging, pathology]) are not applicable. Consent obtained and matches the intended procedure. Yes. Correct side/site is not applicable. Medications required for this procedure are verified. Fire risk assessed and is not applicable. Implants: are not applicable. Sign Out: Specimens are all correctly labeled and sent. All instruments, equipment, possible retained foreign bodies are accounted for. Yes. The post-procedure plan of care has been communicated to the patient or surrogate. OBJECTIVE: Cervix cleaned with betadine. A single tooth tenaculum was used to grasp cervix. Under sterile conditions, using 20 mL normal saline as distention, ENDOSEE hysteroscopy performed without incident. No endocervical lesions seen. Endometrial lining is normal. No intrauterine lesions. Tubal ostia visualized and normal. Endometrial biopsy performed. PROCEDURE SUMMARY: Patient tolerated procedure well. ASSESMENT: Menorrhagia with no lesions on hysteroscopy. PLAN: Follow up endometrial biopsy results. Wilberto Morales MD [facility] 08-16-2025 Note HNO ID: [id number] Author: GISSELL MARTÍNEZ APRN.JORGE Service: ? Author Type: Nurse Practitioner Type: Progress Notes Filed: 08/16/2025 09:44 Note Text: [facility] CLINICAL NOTE Department of Hematology and Medical Oncology PATIENT NAME: Lana Adame CLINIC NO.: [id number] ATTENDING PHYSICIAN: DATE OF SERVICE: 08/16/2025 39 year old female who presents for follow up of iron deficiency anemia INTERIM HISTORY: 39 year old female who presents for follow up of iron deficiency anemia. She has been feeling well since her last iron infusions. She denies and headaches, dizziness, fatigue, CP, sob, abdominal pain, no blood in urine or stools, no swelling. She has recently been having heavy menstruation with her last cycle lasting 11 days. She is following with OBGYN and is having an endometrial biopsy on 08/23. DIAGNOSIS: - Iron deficiency anemia HISTORY OF PRESENT ILLNESS: - 39 year old female who was seen for iron deficiency anemia in March. At that time there were no recent records available for review. She stated that she was admitted to [facility] and was given IV Iron at that time. Following that visit she had labs drawn and hgb was 11.4, MCV 86.4, plt 287, iron 82, tibc 359, transferrin sat MEDICATIONS: Per [employer]. REVIEW OF SYSTEMS: GENERAL: No weight loss, malaise, fevers, or fatigue. HEENT: Negative for frequent or significant headaches, no changes in vision or hearing, no nose bleeds or other nasal problems. NECK: Negative for lumps, goiter, pain, and significant neck swelling. RESPIRATORY: Negative for cough, dyspnea, or shortness of breath. CARDIOVASCULAR: Negative for chest pain, leg swelling, CHF, or palpitations. GI: No nausea, vomiting, diarrhea, heartburn, abdominal pain, blood in stool, or black stool. GENITOURINARY: No history of dysuria, frequency, or incontinence. Positive for menorrhagia (heavy menstrual bleeding). MUSCULOSKELETAL: Negative for joint pain or swelling, or muscle pain. No back pain. SKIN: Negative for lesions, rash, and itching. PSYCH: Negative for anxiety or depression. HEMATOLOGY/LYMPHOLOGY: No abnormal bruising or other bleeding concerns. NEURO: No history of headaches, syncope, paralysis, seizures, or tremors. Negative for dizziness. ENDOCRINE: No history of polydipsia, increased thirst, or other endocrine symptoms. ECOG PS = Eastern Cooperative Oncology Group (ECOG): 0: Fully active, able to carry on all pre-disease performance without restriction PHYSICAL EXAMINATION: General: NAD, WD, WN, well-appearing; conversant, appropriately interactive HEENT: normocephalic; no temporal wasting; normal conjunctiva; no scleral icterus; normal hearing; lips without lesions Respiratory: normal respiratory effort; no respiratory distress or use of accessory muscles; no audible wheezing; no cough. Extremities: No visible edema Skin: no visible rash or skin lesions on face/neck; normal pallor; no jaundice Neurologic: alert AND oriented x 3, no focal deficits; able to sit and rise from chair without pain or difficulty Psychiatric: affect normal, mood normal, behavior normal, thought content normal, judgment normal VITALS: HR 64, BP 125/85, 98% on RA DIAGNOSTIC STUDIES: Latest Ref [facility] 07/25/2025 WBC 3.70 - 11.00 k/uL 7.14 RBC 3.90 - 5.20 m/uL 4.25 Hemoglobin 11.5 - 15.5 g/dL 12.8 Hematocrit 36.0 - 46.0 % 37.4 MCV 80.0 - 100.0 fL 88.0 MCH 26.0 - 34.0 pg 30.1 MCHC 30.5 - 36.0 g/dL 34.2 RDW-CV 11.5 - 15.0 % 12.2 Platelet Count 150 - 400 k/uL 280 MPV 9.0 - 12.7 fL 11.3 Neut% % 68.8 Abs Neut (ANC) 1.45 - 7.50 k/uL 4.91 Lymph% % 22.1 Abs Lymph 1.00 - 4.00 k/uL 1.58 Rush% % 6.2 Abs Rush <0.87 k/uL 0.44 Eosin% % 1.5 Abs Eosin <0.46 k/uL 0.11 Baso% % 0.8 Abs Baso <0.11 k/uL 0.06 Immature Gran % % 0.6 IMMATURE GRANS (ABS) <0.10 k/uL 0.04 NRBC /100 WBC 0.0 Absolute nRBC <0.01 k/uL <0.01 DTYPE Auto Iron 41 - 186 ug/dL 99 TIBC 232 - 386 ug/dL 355 Transferrin Saturation 15.0 - 57.0 % 27.9 Ferritin 14.7 - 205.1 ng/mL 49.9 ASSESSMENT/PLAN: 1. Iron deficiency anemia secondary to inadequate dietary iron intake (D50.8) 2. 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 Excessive and frequent menstruation with regular cycle (N92.0) Currently her hgb is 12.8, MVC 88, plt 280, iron 99, tibc 355, transferrin sat 27.9. Patient had received IV iron at [facility] - she completed her course on 04/13/25 B1, B6, B12, folate, copper, zinc and retic levels all normal IFOBT stools - was negative Following with [employer] [facility] for menorrhagia -Follow up with labs in 3 months -Advised to call or message office if she begins to feel symptomatic prior to the visit since she has been having increasing bleeding since last labs. I spent a total of 30 minutes on the date of the service which included preparing to see the patient and [id number] (more content not included)... [facility] 08-03-2025 Note HNO ID: [id number] Author: CARLOS KNIGHT MD Service: ? Author Type: Physician Type: Progress Notes Filed: 08/03/2025 20:40 Note Text: The patient presents for requested ultrasound. Full report available in the "Imaging" tab in Epic. Carlos Knight MD [facility] 08-01-2025 Note HNO ID: [id number] Author: WILBERTO MORALES MD Service: ? Author Type: Physician Type: Progress Notes Filed: 08/01/2025 11:50 Note Text: Lana is a 39 year old who presents for an annual gynecologic exam with complaints, last 2 menses a little later than average.. Still get period: Yes Menses: monthly, getting heavier Bleeding amount bothersome: Yes Bleeding between periods: No Period symptoms: Acne; Breast tenderness; Cramps; Mood change Time with current partner: 19 years Number of lifetime partners: 2 Contraception frequency: Always HPV vaccine: No; HPV:negative Last pap smear: History of abnormal pap: No, all prior PAP smears have been normal Bothersome pelvic pain: No Last mammogram: never OB History Gravida2 Para2 Term2 Preterm0 AB0 Living2 SAB0 IAB0 Ectopic0 Multiple0 Live Births2 Salvationist History LMP: 07/30/2025 (Exact Date), Having periods Age at Menarche: 12 Age at First : Age at Menopause: Salvationist History Comments: Sexual Activity: Yes; Male Contraception: Vasectomy Menstrual Tracking History Flowsheet Row Office Visit from 08/01/2025 in OB/Gynecology Period Duration (Days) 7 Menstrual Flow Heavy PAST MEDICAL HISTORY Diagnosis Date Depression Hypothyroid Psychiatric disorder PAST SURGICAL HISTORY Procedure Laterality Date LAP SLEEVE GASTRECTOMY 12/22/2022 FAMILY HISTORY Problem Relation Age of Onset Hypertension Mother Hypertension Father SOCIAL HISTORY Social History Tobacco Use Smoking status: Never Smokeless tobacco: Never Vaping Use Vaping status: Never Used Substance Use Topics Alcohol use: Yes Comment: Social Drug use: Never REVIEW OF SYSTEMS Abdomen: No abdominal pain, nausea, vomiting, diarrhea, or constipation. No bloating, early satiety, indigestion, or increased flatulence. Bladder: No dysuria, gross hematuria, urinary frequency, urinary urgency, or incontinence. Breast: No breast lumps, nipple d/c, overlying skin changes, redness or skin retraction. Allergies and current medication updated:Yes SENSITIVE EXAM: The sensitive examination was discussed with the Patient or Patient's Authorized Cleaner Assistant. As applicable, any other physician, advance practice provider, medical student, or other health professional student that will be observing or involved in the sensitive examination for educational or training purposes was discussed with the Patient or Authorized Cleaner Assistant. The Patient or Authorized Cleaner Assistant has agreed to proceed with the sensitive examination. (Sensitive examination includes inspection and/or palpation of the breasts, pelvis, prostate and anorectal regions). EXAM: BP 124/76 Ht 5' 2" (1.58m) Wt 171 lb (77.6kg) LMP 07/30/2025 BMI 31.27 kg/(m2). GENERAL: pleasant, female in no apparent [...] external genitalia normal, normal Bartholin's glands, urethra, [place]'s glands, no vulvar lesions, no cervical lesions, good vaginal support, physiologic discharge present, normal appearing perineal body and perianal region BIMANUAL: uterus normal size, shape and consistency, no adnexal masses, and non-tender RECTOVAGINAL: deferred. NEURO: alert and oriented x3,exam grossly non-focal EXTREMITIES: normal ASSESSMENT/PLAN: 1) Health maintenance: Pap/HPV up to date. Mammogram ordered. 2) Contraception: vasectomy. Contraceptive options reviewed and information provided. 3) STD screening: Declined STI check. 4) Follow up one year or sooner as needed menorrhagia with h/o fe def anemia was anemic and got fe infusions earlier this year. check EMB and pelvic US and gave info on some options Wilberto Morales MD [facility] 05-24-2025 Progress note [facility] 05-24-2025 Progress note Note Date/Time May 24, 2025 4:17pm [facility] [address] [address] OFFICE VISIT Date of Service: 05/24/25 1528 MR#: [id number] Acct: [id number] Name: LANA ADAME Rep #: [id number] : 1985 From: Zaid Salazar MD Age/Sex: 39/F Location: [facility] [place] Status: Signed HPI Subjective Date of Service 05/24/25 Chief Complaint F/u for Iron deficiency anemia. History of Present Illness 39y.o.woman had Bariatric surgery in 2022. She was found to have Iron deficiencyanemia, was started on Oral Iron. There was no significant improvement in HGB soreferred for IV Iron. Got IV Iron infusion on 03/30/2025, 04/06/2025, 04/10/2025. Come for follow up. Feels well. [facility] Medical History GERD (gastroesophageal reflux disease) Carpal tunnel syndrome Insomnia KARINE (obstructive sleep apnea) Former smoker Depression Anxiety Alcohol use Anemia Back pain Migraine headache CPAP (continuous positive airway pressure) dependence Shortness of breath on exertion History of echocardiogram Seizures Cardiology follow-up encounter Polycystic ovary Hormone deficiency Rectal discomfort Constipation Hepatic steatosis Obesity, morbid, BMI 40.0-49.9 Hypothyroidism Normal spontaneous vaginal delivery Surgical History History of liver biopsy Hx of gastric bypass History of colonoscopy H/O hernia repair H/O gastric sleeve Family History Father Hypertension Obesity Mother Hypertension Obesity Grandfather Colon cancer Uncle Colon cancer Social History household members: spouse Smoking Status: Former smoker how long ago did patient quit smoking: quit 20 years ago alcohol intake: current alcohol intake frequency: holidays/special occasions only substance use type: does not use what type of physical activity do you participate in: walking frequency: 1-2 times per week additional social history: pt denies vaping, denies edibles, denies marijuana uses aspirin and ibuprofen as needed Intake Vital Signs 03/15/25 16:04 04/13/25 11:06 05/24/25 15:31 Height 5 ft 2 in 5 ft 2 in 5 ft 2 in Weight: 77.734 kg BMI 31.3 BP 130/88 H Blood Pressure Location Lt brachial Position Sitting Respiration 18 Pulse 70 Pulse Source Monitor Temp 98.3 F Temperature Source Temporal Artery Pulse Oximetry (%) 99 Oxygen Delivery Method room air Intake Accompanied by: Self Is patient in pain?: No Allergies bee venom protein (honey bee) Adverse Reaction (Severe, Verified 05/24/25 15:39) Anaphylaxis Medications ?Medication ?Instructions ?Recorded ?Confirmed ?Type bupropion HCl 300 mg 24 hr tablet, 300 mg PO QHS 07/3005/24/25 History extended release lurasidone 80 mg tablet (Latuda) 20 mg PO QHS 12/06/24 05/24/25 History clonazepam 0.5 mg tablet 0.5 mg PO BID 12/07/2405/24 History cholecalciferol (vitamin D3) 50 4,000 unit PO DAILY 05/24/25 History mcg (2,000 unit) capsule ferrous sulfate 325 mg (65 mg 325 mg PO QDAY 02/17/25 05/24/25 History iron) tablet (FeroSul) levothyroxine 100 mcg tablet 100 mcg PO DAILY 02/17/25 05/24/25 History magnesium oxide 500 mg capsule 500 mg PO DAILY 5 05/24/25 History multivitamin 1 tab PO DAILY 02/17/2505/09 History epinephrine 0.3 mg/0.3 mL 0.3 mg IM ONCE 03/09/2505/09 History injection, auto-injector (EpiPen) bupropion HCl 150 mg 24 hr tablet, 150 mg PO QAM 03/2005/24/25 History extended release Central Venous Access Central Venous Access: No Laboratory Tests 02/28/25 03/07/25 05/24/25 15:59 07:32 07:46 WBC 6.1 6.0 Hgb 10.9 L 12.9 Hct 35.5 L 39.2 Plt Count 273 277 Absolute Neuts (auto) 3.7 Sodium 139 Potassium 4.1 Chloride 103 Carbon Dioxide 26.3 BUN 9 Creatinine 0.90 Glucose 85 Calcium 9.2 Phosphorus 2.6 L Iron 28 L Magnesium 1.8 Iron Saturation 8.0 L 34.4 Ferritin 28 100 Total Bilirubin 0.30 AST 23 ALT 13 Alkaline Phosphatase 65 Lactate Dehydrogenase 150 C-React Prot Ext Range < 3.00 Total Protein 6.9 Albumin 4.3 Globulin 2.5 Exam Physical Exam Const alert, oriented x3 and no apparent distress Coding Level of Care Code Off vis,est,level 3 Exam Problem Focused Diagnoses Iron deficiency anemia following bariatric surgery K95.89; D50.8 Other iron deficiency anemia D50.8 Anemia type: iron deficiency Iron deficiency anemia type: other iron deficiency Iron deficiency anemia refractory to iron therapy D50.8 Assessment and Plan Assessment and Plan (1) Iron deficiency anemia following bariatric surgery: Status: Resolved Comment: S/P IV Iron replacement. Iron profile and Hgb are normal today. Plan: To observation. To do Iron Pill 1-2 times a week. (2) Anemia: Qualifiers: Anemia type: iron deficiency Iron deficiency anemia type: other iron deficiency Qualified Code(s): D50.8 - Other iron deficiency anemias Plan: To observation, take Oral Iron Pills 1-2 times a week. (3) Iron deficiency anemia refractory to iron therapy: Status: Resolved Plan: To do Oral Iron 1-2 tabs a week. Plan Details Follow Up: 6 Months 05/24/25 1617 <Electronically signed by Zaid Rdz> Date _ Zaid Salazar MD Cosigner Signature: Date (if applicable) CC: Dr. Patricio Moeller MD ~ [facility] Work Phone: [phone] NoteHNO ID: [id number] Author: RASHEEDA DHALIWAL PA-C Service: ? Author Type: Physician Human Services Worker Type: Progress Notes Filed: 04/18/2025 08:08 Note Text: VIRTUAL VISIT PROGRESS NOTE This is a virtual visit using [employer] Video Visit. It required patient-provider interaction for the medical decision making as documented below. I have communicated my name and active licensure. The patient's identity and physical location were verified at the time of this visit. Either the patient or their legal new accounts representative has been informed of the risks and benefits of -- and alternatives to -- treatment through a remote evaluation and consents to proceed with the evaluation remotely. Lana Adame is a 39 year old female seen for anemia. Some elements are copied from my note dated April 04, 2025 which has been updated where appropriate and all reflect current medical decision making from today, April 18, 2025 Hematology / Oncology Progress Note Name: Lana Adame : 1985 Date: April 18, 2025 Referring Physician: Dr. Patricio Moeller Interval Events: This 39 yo female is here for follow up discussion of recent anemia work-up. HPI: This 39 yo female is referred for consultation of anemia. 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 Patient reported anemia with a hemoglobin of 10.9 on 03/07/25 and she was seen in the ER on 03/18/25 and had a hemoglobin of 11. There are no recent records to review in the EMR, care everywhere or scanned documents. She states she just started IV iron at [facility] and will send me her iron levels. She also states she had a EGD prior to her gastrectomy in 01/01 without any abnormalities. She states she had a colonoscopy in 01/31 that revealed internal non-bleeding hemorrhoids only. Allergies: Bee Sting Anaphylaxis HISTORIES FAMILY HISTORY Problem Relation Age of Onset Hypertension Mother Hypertension Father PAST MEDICAL HISTORY Diagnosis Date Depression Hypothyroid Psychiatric disorder PAST SURGICAL HISTORY Procedure Laterality Date LAP SLEEVE GASTRECTOMY 12/22/2022 Social History Tobacco Use Smoking status: Never Smokeless tobacco: Never Vaping Use Vaping status: Never Used Substance Use Topics Alcohol use: Yes Comment: Social Drug use: Never Current Outpatient Medications Medication Sig clonazePAM (KLONOPIN) 0.5 mg tablet Take 0.5 mg by mouth two times a day. lurasidone (LATUDA) 20 mg tablet Take 20 mg by mouth. magnesium oxide,aspartate,citr (TRIPLE MAGNESIUM COMPLEX) 400 mg magnesium cap Take 1 capsule by mouth once daily. buPROPion XL (WELLBUTRIN XL) 150 mg 24 hr tablet Take 150 mg by mouth every morning. buPROPion XL (WELLBUTRIN XL) 300 mg 24 hr tablet Take 300 mg by mouth every morning. Cyanocobalamin (VITAMIN B-12) 500 mcg lozg levothyroxine (SYNTHROID) 100 mcg tablet Take 100 mcg by mouth every afternoon. EPINEPHrine (EPIPEN) 0.3 mg/0.3 mL auto-injector cholecalciferol, vitamin D3, 4,000 unit tab Take 1 tablet by mouth once daily. multivitamin tablet Take 1 tablet by mouth once daily. No current facility-administered medications for this visit. REVIEW OF SYSTEMS: GENERAL: feeling well without fatigue, no recent change in weight HEENT: denies KAUR, change in hearing or vision, no other ENT complaints RESPIRATORY: no cough, no wheezing or shortness of breath GI: normal appetite, tolerating PO well, BMs normal, and no abdominal pain NEURO: no numbness or paresthesias and no weakness of the extremities PHYSICAL EXAMINATION: VIDEO EXAM: (if completed, performed via video enabled technology) GENERAL: alert and appropriate, in no distress, well-hydrated, well nourished, and happy, smiling, interactive SKIN: no rash noted HEAD: normocephalic, no abnormality or lesion noted RESPIRATORY: breathing non-labored NEUROLOGIC: no facial droop, speech is clear and fluent and no obvious deficit Labs: Latest Ref Rng 04/04/2025 WBC 3.70 - 11.00 k/uL 8.05 RBC 3.90 - 5.20 m/uL 4.20 Hemoglobin 11.5 - 15.5 g/dL 11.4 (L) Hematocrit 36.0 - 46.0 % 36.3 MCV 80.0 - 100.0 fL 86.4 MCH 26.0 - 34.0 pg 27.1 MCHC 30.5 - 36.0 g/dL 31.4 RDW-CV 11.5 - 15.0 % 15.4 (H) Platelet Count 150 - 400 k/uL 287 MPV 9.0 - 12.7 fL 12.1 Neut% % 70.6 Abs Neut (ANC) 1.45 - 7.50 k/uL 5.68 Lymph% % 20.7 Abs Lymph 1.00 - 4.00 k/uL 1.67 Rush% % 5.8 Abs Rush <0.87 k/uL 0.47 Eosin% % 1.4 Abs Eosin <0.46 k/uL 0.11 Baso% % 1.1 Abs Baso <0.11 k/uL 0.09 Immature Gran % % 0.4 IMMATURE GRANS (ABS) <0.10 k/uL 0.03 NRBC /100 WBC 0.0 Absolute nRBC <0.01 k/uL <0.01 DTYPE Auto Latest Ref Rng 04/04/2025 Protein, Total 6.3 - 8.0 g/dL 7.0 Albumin 3.9 - 4.9 g/dL 4.3 Calcium 8.5 - 10.2 mg/dL 9.4 Bilirubin, Total 0.2 - 1.3 mg/dL 0.2 Alkaline Phosphatase 34 - 123 U/L 64 AST 13 - 35 U/L 23 ALT 7 - 38 U/L 15 Glucose 74 - 99 mg/dL 74 BUN 7 - 21 mg/dL 9 Creatinine 0.58 - 0.96 mg/dL 0.92 Sodium 13 (more content not included)...[facility]06-09-2025 History of Present illness Narrative* Rasheeda Dhaliwal PA-C - 04/17/2025 9:29 AM EDT VIRTUAL VISIT PROGRESS NOTE This is a virtual visit using [employer] Video Visit. It required patient- provider interaction for the medical decision making as documented below. I have communicated my name and active licensure. The patient's identity and physical location wereverified at the time of this visit. Either the patient or their legal new accounts representative has been informed of the risks and benefits of -- and alternatives to -- treatment through a remote evaluation andconsents to proceed with the evaluation remotely. Lana Adame is a 39 year old female seen for anemia. Some elements are copied from my note dated April 04, 2025 which has been updated where appropriate and all reflect current medical decision making from today, April 18, 2025 Hematology / Oncology Progress Note Name: Lana Adame : 1985 Date: April 18, 2025 Referring Physician: Dr. Patricio Moeller Interval Events: This 39 yo female is here for follow up discussion of recent anemia work-up. HPI: This 39 yo female is referred for consultation of anemia. 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 Patient reported anemia with a hemoglobin of 10.9 on 03/07/25 and she was seen in the ER on 03/18/25 and had a hemoglobin of 11. There are no recent records to review in the EMR, care ever ywhere or scanned documents. She states she just started IV iron at [facility] and will send me her iron levels. She also states she had a EGD prior to her gastrectomy in 01/01 without any abnormalities. She states she had a colonoscopy in 01/31 that revealed internal non-bleeding hemorrhoids only. Allergies: Bee Sting Anaphylaxis HISTORIES FAMILY HISTORY Problem Relation Age of Onset Hypertension Mother Hypertension Father PAST MEDICAL HISTORY Diagnosis Date Depression Hypothyroid Psychiatric disorder PAST SURGICAL HISTORY Procedure Laterality Date LAP SLEEVE GASTRECTOMY 12/22/2022 Social History Tobacco Use Smoking status: Never Smokeless tobacco: Never Vaping Use Vaping status: Never Used Substance Use Topics Alcohol use: Yes Comment: Social Drug use: Never Current Outpatient Medications Medication Sig clonazePAM (KLONOPIN) 0.5 mg tablet Take 0.5 mg by mouth two times a day. lurasidone (LATUDA) 20 mg tablet Take 20 mg by mouth. magnesium oxide,aspartate,citr (TRIPLE MAGNESIUM COMPLEX) 400 mg magnesium cap Take 1 capsule by mouth once daily. buPROPion XL (WELLBUTRIN XL) 150 mg 24 hr tablet Take 150 mg by mouth every morning. buPROPion XL (WELLBUTRIN XL) 300 mg 24 hr tablet Take 300 mg by mouth every morning. Cyanocobalamin (VITAMIN B-12) 500 mcg lozg levothyroxine (SYNTHROID) 100 mcg tablet Take 100 mcg by mouth every afternoon. EPINEPHrine (EPIPEN) 0.3 mg/0.3 mL auto-injector cholecalciferol, vitamin D3, 4,000 unit tab Take 1 tablet by mouth once daily. multivitamin tablet Take 1 tablet by mouth once daily. No current facility-administered medications for this visit. REVIEW OF SYSTEMS: GENERAL: feeling well without fatigue, no recent change in weight HEENT: denies KAUR, change in hearing or vision, no other ENT complaints RESPIRATORY: no cough, no wheezing or shortness of breath GI: normal appetite, tolerating PO well, BMs normal, and no abdominal pain NEURO: no numbness or paresthesias and no weakness of the extremities PHYSICAL EXAMINATION: VIDEO EXAM: (if completed, performed via video enabled technology) GENERAL: alert and appropriate, in no distress, well-hydrated, well nourished, and happy, smiling, interactive SKIN: no rash noted HEAD: normocephalic, no abnormality or lesion noted RESPIRATORY: breathing non-labored NEUROLOGIC: no facial droop, speech is clear and fluent and no obvious deficit Labs: Latest Ref [facility] 04/04/2025 WBC 3.70 - 11.00 k/uL 8.05 RBC 3.90 - 5.20 m/uL 4.20 Hemoglobin 11.5 - 15.5 g/dL 11.4 (L) Hematocrit 36.0 - 46.0 % 36.3 MCV 80.0 - 100.0 fL 86.4 MCH 26.0 - 34.0 pg 27.1 MCHC 30.5 - 36.0 g/dL 31.4 RDW-CV 11.5 - 15.0 % 15.4 (H) Platelet Count 150 - 400 k/uL 287 MPV 9.0 - 12.7 fL 12.1 Neut% % 70.6 Abs Neut (ANC) 1.45 - 7.50 k/uL 5.68 Lymph% % 20.7 Abs Lymph 1.00 - 4.00 k/uL 1.67 Rush% % 5.8 Abs Rush <0.87 k/uL 0.47 Eosin% % 1.4 Abs Eosin <0.46 k/uL 0.11 Baso% % 1.1 Abs Baso <0.11 k/uL 0.09 Immature Gran % % 0.4 IMMATURE GRANS (ABS) <0.10 k/uL 0.03 NRBC /100 WBC 0.0 Absolute nRBC <0.01 k/uL <0.01 DTYPE Auto Latest Ref Rng 04/04/2025 Protein, Total 6.3 - 8.0 g/dL 7.0 Albumin 3.9 - 4.9 g/dL 4.3 Calcium 8.5 - 10.2 mg/dL 9.4 Bilirubin, Total 0.2 - 1.3 mg/dL 0.2 Alkaline Phosphatase 34 - 123 U/L 64 AST 13 - 35 U/L 23 ALT 7 - 38 U/L 15 Glucose 74 - 99 mg/dL 74 BUN 7 - 21 mg/dL 9 Creatinine 0.58 - 0.96 mg/dL 0.92 Sodium 136 - 144 mmol/L 138 Potassium 3.7 - 5.1 mmol/L 4.0 Chloride 98 - 107 mmol/L 103 CO2 22 - 30 mmol/L 26 Anion Gap 8 - 15 mmol/L 9 eGFR >=60 mL/min/1.73m 81 Latest Ref Rng 04/04/2025 04/05/2025 Iron 41 - 186 ug/dL 82 TIBC 232 - 386 ug/dL 359 Transferrin Saturation 15.0 - 57.0 % 22.8 Retic % 0.4 - 2.0 % 1.7 Abs Retic 0.018 - 0.100 M/uL 0.071 Ferritin 14.7 - 205.1 ng/mL 225.0 (H) Folate >4.7 ng/mL 10.4 Vitamin B12 232 - 1,245 pg/mL 609 Vitamin B1 (TDP), Whole Blood 84.3 - 213.3 nmol/L 170.9 Copper 80 - 155 ug/dL 91 Zinc 60 - 120 ug/dL 61 Vitamin B6, Plasma 20.0 - 125.0 nmol/L 40.8 Latest Ref Rng 04/06/2025 Occult Blood, Stool Negative Negative Assessment / Plan: Anemia due to iron deficiency anemia due to impaired absorption from gastric sleeve surgery Patient has now received IV iron at [facility] - she completed her course on 04/13/25 B1, B6, B12, folate, copper, zinc and retic levels IFOBT stools - was negative Plan to recheck labs and visit again in 3 months. I spent a total of 20 minutes on the date of the service which included preparing to see the patient, [id number] patient care, completing clinical documentation, obtaining and/or reviewing separately obtained history, performing a medically appropriate examination, counseling and educating the pat ient/family/caregiver, ordering medications, tests, or procedures, independently interpreting results (not separately reported), communicating results to the patient/family/caregiver, and care coordination (not separately reported) Rasheeda Dhaliwal PA-C CC: Dr. Patricio Dial documented in this encounterProm[facility] NoteHNO ID: [id number] Author: RASHEEDA DHALIWAL PA-C Service: ? Author Type: Physician Human Services Worker Type: Progress Notes Filed: 04/04/2025 14:49 Note Text: Hematology / Oncology Anemia Consult Name: Lana Adame : 1985 Date: April 04, 2025 Referring Physician: Dr. Patricio Moeller HPI: This 39 yo female is referred for consultation of anemia. 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 Patient reported anemia with a hemoglobin of 10.9 on 03/07/25 and she was seen in the ER on 03/18/25 and had a hemoglobin of 11. There are no recent records to review in the EMR, care everywhere or scanned documents. She states she just started IV iron at [facility] and will send me her iron levels. She also states she had a EGD prior to her gastrectomy in 01/01 without any abnormalities. She states she had a colonoscopy in 01/31 that revealed internal non-bleeding hemorrhoids only. Allergies: Bee Sting Anaphylaxis HISTORIES FAMILY HISTORY Problem Relation Age of Onset Hypertension Mother Hypertension Father PAST MEDICAL HISTORY Diagnosis Date Depression Hypothyroid Psychiatric disorder PAST SURGICAL HISTORY Procedure Laterality Date LAP SLEEVE GASTRECTOMY 12/22/2022 Social History Tobacco Use Smoking status: Never Smokeless tobacco: Never Vaping Use Vaping status: Never Used Substance Use Topics Alcohol use: Yes Comment: Social Drug use: Never Current Outpatient Medications Medication Sig clonazePAM (KLONOPIN) 0.5 mg tablet Take 0.5 mg by mouth two times a day. lurasidone (LATUDA) 20 mg tablet Take 20 mg by mouth. magnesium oxide,aspartate,citr (TRIPLE MAGNESIUM COMPLEX) 400 mg magnesium cap Take 1 capsule by mouth once daily. buPROPion XL (WELLBUTRIN XL) 150 mg 24 hr tablet Take 150 mg by mouth every morning. buPROPion XL (WELLBUTRIN XL) 300 mg 24 hr tablet Take 300 mg by mouth every morning. Cyanocobalamin (VITAMIN B-12) 500 mcg lozg levothyroxine (SYNTHROID) 100 mcg tablet Take 100 mcg by mouth every afternoon. EPINEPHrine (EPIPEN) 0.3 mg/0.3 mL auto-injector cholecalciferol, vitamin D3, 4,000 unit tab Take 1 tablet by mouth once daily. multivitamin tablet Take 1 tablet by mouth once daily. No current facility-administered medications for this visit. Review of Systems Constitutional: Negative for chills, fatigue and fever. HENT: Negative for mouth sores, nosebleeds and sore throat. Respiratory: Positive for shortness of breath (mild DONOVAN with stairs). Negative for cough. Cardiovascular: Negative for chest pain and leg swelling. Gastrointestinal: Negative for abdominal pain, blood in stool, constipation, diarrhea, nausea and vomiting. Genitourinary: Positive for vaginal bleeding (has heavy periods with clots). Negative for dysuria, frequency and hematuria. Musculoskeletal: Negative for arthralgias, gait problem and myalgias. Skin: Negative for itching and rash. Neurological: Positive for headaches (migraines). Negative for dizziness, gait problem and numbness. Hematological: Negative for adenopathy. Does not bruise/bleed easily. Psychiatric/Behavioral: Negative for confusion. The patient is not nervous/anxious. BP 121/81 Pulse 68 Temp 36.6 ?C (97.9 ?F) (Temporal) Wt 76.8 kg (169 lb 5 oz) LMP 03/14/2025 (Within Days) SpO2 97% BMI 30.72 kg/m? ECOG 0 Physical Exam Constitutional: General: She is not in acute distress. HENT: Head: Normocephalic and atraumatic. Mouth/Throat: Mouth: Mucous membranes are moist. Pharynx: Oropharynx is clear. Eyes: Extraocular Movements: Extraocular movements intact. Conjunctiva/sclera: Conjunctivae normal. Pupils: Pupils are equal, round, and reactive to light. Cardiovascular: Rate and Rhythm: Normal rate and regular rhythm. Heart sounds: Normal heart sounds. No murmur heard. No friction rub. No gallop. Pulmonary: Effort: Pulmonary effort is normal. Breath sounds: Normal breath sounds. No wheezing, rhonchi or rales. Abdominal: General: Bowel sounds are normal. Palpations: Abdomen is soft. Tenderness: There is no abdominal tenderness. There is no guarding. Musculoskeletal: Right lower leg: No edema. Left lower leg: No edema. Skin: Findings: No bruising or rash. Neurological: General: No focal deficit present. Mental Status: She is alert and oriented to person, place, and time. Psychiatric: Mood and Affect: Mood normal. Behavior: Behavior normal. Labs: Assessment / Plan: Anemia Hx of gastric sleeve surgery Patient is receiving IV iron at outside hospital Will check CBC, B1, B6, B12, folate and retic levels Will also check copper and zinc IFOBT stools Follow up in 2 weeks to discuss results and plan. I spent 40 minutes in the visit, with more than 50% of the total [id number]-or-pdld time of the visit in counseling / coordination of care. Rasheeda Dhaliwal PA-C April 04, 2025 CC: Dr. Patricio MoeSanta Clara Valley Medical Centerelizabeth [facility] History of Present illness Narrative* Rasheeda Dhaliwal PA-C - 03/31/2025 11:58 AM EDT Images from the original note were not included. Hematology / Oncology Anemia Consult Name: Lana Adame : 1985 Date: April 04, 2025 Referring Physician: Dr. Patricio Moeller HPI: This 39 yo female is referred for consultation of anemia. 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 Patient reported anemia with a hemoglobin of 10.9 on 03/07/25 and she was seen in the ER on 03/18/25 and had a hemoglobin of 11. There are no recent records to review in the EMR, care ever ywhere or scanned documents. She states she just started IV iron at [facility] and will send me her iron levels. She also states she had a EGD prior to her gastrectomy in 01/01 without any abnormalities. She states she had a colonoscopy in 01/31 that revealed internal non-bleeding hemorrhoids only. Allergies: Bee Sting Anaphylaxis HISTORIES FAMILY HISTORY Problem Relation Age of Onset Hypertension Mother Hypertension Father PAST MEDICAL HISTORY Diagnosis Date Depression Hypothyroid Psychiatric disorder PAST SURGICAL HISTORY Procedure Laterality Date LAP SLEEVE GASTRECTOMY 12/22/2022 Social History Tobacco Use Smoking status: Never Smokeless tobacco: Never Vaping Use Vaping status: Never Used Substance Use Topics Alcohol use: Yes Comment: Social Drug use: Never Current Outpatient Medications Medication Sig clonazePAM (KLONOPIN) 0.5 mg tablet Take 0.5 mg by mouth two times a day. lurasidone (LATUDA) 20 mg tablet Take 20 mg by mouth. magnesium oxide,aspartate,citr (TRIPLE MAGNESIUM COMPLEX) 400 mg magnesium cap Take 1 capsule by mouth once daily. buPROPion XL (WELLBUTRIN XL) 150 mg 24 hr tablet Take 150 mg by mouth every morning. buPROPion XL (WELLBUTRIN XL) 300 mg 24 hr tablet Take 300 mg by mouth every morning. Cyanocobalamin (VITAMIN B-12) 500 mcg lozg levothyroxine (SYNTHROID) 100 mcg tablet Take 100 mcg by mouth every afternoon. EPINEPHrine (EPIPEN) 0.3 mg/0.3 mL auto-injector cholecalciferol, vitamin D3, 4,000 unit tab Take 1 tablet by mouth once daily. multivitamin tablet Take 1 tablet by mouth once daily. No current facility-administered medications for this visit. Review of Systems Constitutional: Negative for chills, fatigue and fever. HENT: Negative for mouth sores, nosebleeds and sore throat. Respiratory: Positive for shortness of breath (mild DONOVAN with stairs). Negative for cough. Cardiovascular: Negative for chest pain and leg swelling. Gastrointestinal: Negative for abdominal pain, blood in stool, constipation, diarrhea, nausea and vomiting. Genitourinary: Positive for vaginal bleeding (has heavy periods with clots). Negative for dysuria, frequency and hematuria. Musculoskeletal: Negative for arthralgias, gait problem and myalgias. Skin: Negative for itching and rash. Neurological: Positive for headaches (migraines). Negative for dizziness, gait problem and numbness. Hematological: Negative for adenopathy. Does not bruise/bleed easily. Psychiatric/Behavioral: Negative for confusion. The patient is not nervous/anxious. BP 121/81 Pulse 68 Temp 36.6 C (97.9 F) (Temporal) Wt 76.8 kg (169 lb 5 oz) LMP 03/14/2025 (Within Days) SpO2 97% BMI 30.72 kg/m ECOG 0 Physical Exam Constitutional: General: She is not in acute distress. HENT: Head: Normocephalic and atraumatic. Mouth/Throat: Mouth: Mucous membranes are moist. Pharynx: Oropharynx is clear. Eyes: Extraocular Movements: Extraocular movements intact. Conjunctiva/sclera: Conjunctivae normal. Pupils: Pupils are equal, round, and reactive to light. Cardiovascular: Rate and Rhythm: Normal rate and regular rhythm. Heart sounds: Normal heart sounds. No murmur heard. No friction rub. No gallop. Pulmonary: Effort: Pulmonary effort is normal. Breath sounds: Normal breath sounds. No wheezing, rhonchi or rales. Abdominal: General: Bowel sounds are normal. Palpations: Abdomen is soft. Tenderness: There is no abdominal tenderness. There is no guarding. Musculoskeletal: Right lower leg: No edema. Left lower leg: No edema. Skin: Findings: No bruising or rash. Neurological: General: No focal deficit present. Mental Status: She is alert and oriented to person, place, and time. Psychiatric: Mood and Affect: Mood normal. Behavior: Behavior normal. Labs: Assessment / Plan: Anemia Hx of gastric sleeve surgery Patient is receiving IV iron at outside hospital Will check CBC, B1, B6, B12, folate and retic levels Will also check copper and zinc IFOBT stools Follow up in 2 weeks to discuss results and plan. I spent 40 minutes in the visit, with more than 50% of the total [id number] time of the visit in counseling / coordination of care. Rasheeda Dhaliwal PA-C April 04, 2025 CC: Dr. Patricio Dial documented in this encounterPromedica [facility]03-26-2025 Consult note Author Piotr Munson [facility] Note Date/Time February 01, 2025 11: 48am [facility] Medical Records Department [address] [place] [address] Pre-Anesthesia Evaluation 02/01/25 1147 MR#: [id number] Acct: [id number] Name: LANA ADAME Rep #:[id number] : 1985 39 From: Piotr Munson MD PCP: Dr. Patricio Moeller MD Status:REG S DC Y Race: C Location: [place] [address] ASA Classification* ASA Classification ASA Classification: 2 Assessment & Plan Anesthesia* Anesthesia Assessment Anesthesia Assessment: Discussed sedation and/or anesthesia options, risks, benefits, and alternatives with patient/parents/legal guardian/POA. Questions invited. The patient/parents/legal guardian/POA seems to understand and agrees to proceedwith anesthesia plan. Reviewed the physical assessment, medical history, allergy history and patient home medications list prior to surgery/procedure/anesthetic and documented any changes. Performed airway and anesthesia risk assessments. Anesthesia Type Anesthesia Type: MAC Anesthesia Focused Assessment* Airway Assessment Mouth opens: >3 cm Mallampati Score: II Focused Labs Anesthesia Preop lab: CBC WBC 4.6 K/mm3 (4.4-11.0) 01/25/25 13:01/25/25 RBC 4.33 M/mm3 (4.2-5.4) 01/25/25 13:01/25/25 Hgb 11.0 g/dL (12.0-15.0) L 01/25/25 13: 5 Hct 35.2 % (37-47) L 01/25/25 13:01/25/25 Plt Count 322 K/mm3 (150-450) 01/25/25 13:26 01/25/25 CHEMISTRY Potassium 4.1 mmol/L (3.3-5.1) 01/25/25 13:01/25/25 Sodium 138 mmol/L (133-145) 01/25/25 13:26 01/25/25 Magnesium 2.3 mg/dL (1.5-2.2) H 01/25/25 13:01/25/25 BUN 8 mg/dL (4-19) 01/25/25 13:26 01/25/25 Creatinine 1.02 mg/dL (0.70-1.20) 01/25/25 13:26 01/25/25 Glucose 75 mg/dL (70-99) 01/25/25 13:26 01/25/25 POC Glucose 85 mg/dL (70-110) 07/18/16 06:52 07/18/16 TSH 0.129 uIU/mL (0.358-3.740) L 11/28/24 09:26 COAG Urine Test Negative Negative 02/01/25 11:25 02/01/25 Pre-Assessment Diagnosis/Proposed Procedure Planned Operative Procedure(s): CSCOPE HEMORRHOID BANDING Anesthesia History 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 When Was Last Pacemaker Check QUESTION #4 FULL TEXT: You/Your Family Experience fever (hyperthermia) with Anesthesia Last Oral Intake Last Oral intake: Last Oral Intake NPO since Meds taken in AM with sips of water? 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 Female Yes 01/30/25 11:46 HX of Motion Sickness No 01/30/25 11:46 HX of N/V After Surgery No 01/30/25 11:46 Non-Smoker Yes 01/30/25 11:46 Duration of Surgery greater No 01/30/25 11:46 than 60 minutes Number of Risk Factors 2 01/30/25 11:46 PONV Score Moderate Risk 01/30/25 11:46 Height & Weight Height & Weight: Anesthesia: Height & Weight Height 5 ft 2 in 01/30/25 06:30 Respiratory Assessment Respiratory Assessment - drivers' cash clerk: Respiratory Tract Infection Hx - drivers' cash clerk Hx Respiratory Tract Infection Yes: SINUS COLD 01/30/25 11:46 STOP Sleep Apnea STOP Sleep Apnea - drivers' cash clerk: STOP Sleep Apnea - drivers' cash clerk Hx Hypertension No 01/30/25 11:46 Hx Sleep Apnea Yes 01/30/25 11:46 CPAP Yes 01/30/25 11:46 BIPAP No 01/30/25 11:46 Do you snore loudly (louder No 01/30/25 11:46 than talking or can be heard Do you often feel tired/ No 01/30/25 11:46 fatigued/ sleepy during daytime? Has anyone observed you stop No 01/30/25 11:46 breathing during sleep? STOP Results Positive 01/30/25 11:46 QUESTION #5 FULL TEXT : Do you snore loudly (louder than talking or can be heard through closed doors)? 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 Specify any problems Hx of Preganancy in last 3 No 01/30/25 11:46 Months Nurse Filling Out Transfusion DSCHRIBER 01/30/25 11:46 & Questions: Date: 01/30/25 01/30/25 11:46 Time: 11:47 01/30/25 11:46 Patient unable to answer at this time (ie. 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 Hx Now No 01/30/25 11:46 Gestational Age (in weeks): EDC: Hx Hx Para Hx Section SAB No 01/30/25 11:46 PFSH Medical History Depression Anxiety Alcohol use Anemia Back pain Migraine headache Non-smoker CPAP (continuous positive airway pressure) dependence Shortness of breath on exertion History of echocardiogram Seizures Cardiology follow-up encounter Polycystic ovary Hormone deficiency Rectal discomfort Constipation Hepatic steatosis Obesity, morbid, BMI 40.0-49.9 Hypothyroidism Normal spontaneous vaginal delivery Home Medications ?Medication ?Instructions ?Recorded ?Last Taken ?Type bupropion HCl 300 mg 24 hr tablet, 300 mg PO DAILY Unknown History extended release lurasidone 80 mg tablet (Latuda) 20 mg PO DAILY Unknown History clonazepam 0.5 mg tablet 0.5 mg PO BID 12/07/24 Unkno wn History levothyroxine 112 mcg tablet 100 mcg PO DAILY 12/07/24 02/01/25 04:00 History Diltiazem 2% / Lidocaine 5% #30 grams 01/04/25 Unknown Rx ointment (compound) ondansetron 4 mg disintegrating 4 mg PO Q4H PRN nausea and vomiting 01/30/25 Unknown History tablet Allergy/AdvReac Type Severity Reaction Status Date / Time bee venom protein (honey bee) AdvReac Severe Anaphylaxis Verified 02/01/25 11:39 Family History Father Hypertension Obesity Mother Hypertension Obesity Grandfather Colon cancer Uncle Colon cancer Surgical History H/O hernia repair H/O gastric sleeve Social History household members: spouse Smoking Status: Former smoker how long ago did patient quit smoking: quit 20 years ago alcohol intake: current substance use type: does not use what type of physical activity do you participate in: walking frequency: 1-2 times per week additional social history: pt denies vaping, denies edibles, denies marijuana uses aspirin and ibuprofen as needed Review of Systems (Anesthesia) ROS Narrative System reviewed and no additional complaints, except as documented. 02/01/25 1148 <Electronically signed by Piotr Munson MD > Date _ Piotr Munson MD Cosigner Signature: Date CC: ~ Signed [facility] Work Phone: [phone]) 116-171603-26-2025 Consult note [facility] Medical Records Department [address] [place] [id number] Anesthesia Postop Eval I 02/01/25 1340 MR#: [id number] Acct: [id number] Name: LANA ADAME Rep #:[id number] : 1985 39 From: Orlando Leiva PCP: Dr. Patricio Moeller MD Status:REG S DC Y Race: C Location: [place] [address] Anesthesia: Postop Eval I Current Vital Signs Temperature: 97.9 F Pulse Rate: 60 Blood Pressure: 91/49 Respiratory Rate: 12 Pulse Ox: 98 Oxygen Delivery Method: Room Air Assessment Airway patent: Yes Spontaneous unlabored respirations: Yes Mental status: Asleep nausea: No Vomiting: No Anesthesia Complication: No Fluid Hydration Crystalloid volume administer (ml): 40 Total IV fluid infused: 40 Progress Note Anesthesia document: Postop Eval 1 completed: Yes 02/01/25 1341 > Date _ Orlando Spears Signature: Date CC: ~ Signed [facility]03-26-2025 Procedure note [facility] Medical Records Department [address] [place] [address] Operative Report - CC Letter MR#: [id number] Acct: [id number] Name: LANA ADAME Rep #:[id number] : 1985 39 From: Shon Rivera DO PCP: Dr. Patricio Moeller MD Status:REG S DC 02/01/2025 Patricio Moeller MD [address] [place], [place] [id number] Re : Colonoscopy procedure for Lana Adame Dear Dr. Moeller This procedure was performed on Saturday, February 01, 2025. My impressions and recommendations are as follows: Impressions : - Non-bleeding internal hemorrhoids. Banded. - The entire examined colon is normal. - No specimens collected. Recommendations : - Discharge patient to home. - Resume previous diet. - Continue present medications. - Repeat colonoscopy in 10 years for screening purposes. My findings are described in the full procedure note, which is enclosed. If I can be of further assistance, please feel free to contact me at . Sincerely, Shon Rivera DO 02/01/2025 1:30:27 PM This report has been signed electronically. 02/01/25 1330 Date _ Shon Rivera DO Cosigner Signature: Date (if indicated) CC: Dr. Patricio Moeller MD; Shon Rivera DO ~ Date Dictated: 02/01/25 1259 Date Transcribed: Publishing Editor: RF Signed [facility]03-26-2025 Procedure note [facility] Medical Records Department [address] [place] [id number] Colonoscopy Report MR#: [id number] Acct: [id number] Name: LANA ADAME Rep #:[id number] : 1985 39 From: Shon Rivera DO PCP: Dr. Patricio Moeller MD Status:REG S DC Patient Name: Lana Adame Procedure Date: 02/01/2025 12:59 PM Date of : 1985 Age: 39 Procedure: Colonoscopy Indications: Lower abdominal pain, Change in bowel habits, Obstipation, Rectal pain Providers: Shon Rivera DO Referring MD: Patricio Moeller MD Medicines: Monitored Anesthesia Care Patient Profile: This is a 39 year old female. Refer to note in patient chart for documentation of history and physical. Last Colonoscopy: none. The patient's first colonoscopy is today. Complications: No immediate complications. Procedure: Pre-Anesthesia Assessment: - Prior to the procedure, a History and Physical was performed, and patient medications and allergies were reviewed. The patient is competent. The risks and benefits of the procedure and the sedation options and risks were discussed with the patient. All questions were answered and informed consent was obtained. Patient identification and proposed procedure were verified by the physician in the pre-procedure area. Mental Status Examination: alert and oriented. Airway Examination: normal oropharyngeal airway and neck mobility. Respiratory Examination: clear to auscultation. CV Examination: normal. ASA Grade Assessment: II - A patient with mild systemic disease. After reviewing the risks and benefits, the patient was deemed in satisfactory condition to undergo the procedure. The anesthesia plan was to use monitored anesthesia care (MAC). Immediately prior to administration of medications, the patient was re-assessed for adequacy to receive sedatives. The heart rate, respiratory rate, oxygen saturations, blood pressure, adequacy of pulmonary ventilation, and response to care were monitored throughout the procedure. The physical status of the patient was re-assessed after the procedure. After I obtained informed consent, the scope was passed under direct vision. Throughout the procedure, the patient's blood pressure, pulse, and oxygen saturations were monitored continuously. The Colonoscope was introduced through the anus and advanced to the terminal ileum. The colonoscopy was performed without difficulty. The patient tolerated the procedure well. The quality of the bowel preparation was good. The terminal ileum, ileocecal valve, appendiceal orifice, and rectum were photographed. Scope In: 1:13:02 PM Scope Withdrawal Time 0 hours 7 minutes 42 seconds Scope Out: 1:24:19 PM Total Procedure Duration Time 0 hours 11 minutes 17 seconds Findings: The perianal and digital rectal examinations were normal. Non-bleeding internal hemorrhoids were found during retroflexion. The hemorrhoids were Grade II (internal hemorrhoids that prolapse but reduce spontaneously). The endoscope was withdrawn. A hemorrhoid was isolated with anoscopy. The ShortShot ligator was positioned over the hemorrhoid at the left lateral position. Suction was applied and one rubber band was placed over the hemorrhoid. This was checked to make certain that the muscularis was free of the band. There were no complications. The colon (entire examined portion) appeared normal. Impression: - Non-bleeding internal hemorrhoids. Banded. - The entire examined colon is normal. - No specimens collected. Recommendation: - Discharge patient to home. - Resume previous diet. - Continue present medications. - Repeat colonoscopy in 10 years for screening purposes. Procedure Code(s): --- Professional --- 21960, Hemorrhoidectomy, internal, by rubber band ligation(s) 41160, Colonoscopy, flexible; diagnostic, including collection of specimen(s) by brushing or washing, when performed (separate procedure) CPT copyright 2021 [employer]. All rights reserved. The codes documented in this report are preliminary and upon seasoner hand review may be revised to meet current compliance requirements. Shon Rivera DO 02/01/2025 1:30:27 PM This report has been signed electronically. Number of Addenda: 0 Note Initiated On: 02/01/2025 12:59 PM 02/01/25 1330 Date _ Shon Rivera DO Cosigner Signature: Date (if indicated) CC: Dr. Patricio Moeller MD; Shon Rivera DO ~ Date Dictated: 02/01/25 1259 Date Transcribed: Publishing Editor: RF Signed [facility]03-26-2025 Evaluation note* Diagnosis Onset Date Resolution Status Admit Date Rectal bleeding acute January 11:16am Tenesmus (rectal) acute January 082024 11:16am Atrophic skin acute February 08, 2025 2:03pm Encounter for cosmetic surgery acute February 08, 2025 2:03pm Localized adiposity of abdomen acute February 08, 2025 2:03pm Atrophic skin acute February 22, 2025 1:08pm Encounter for cosmetic surgery acute February 22, 2025 1:08pm Localized adiposity of abdomen acute February 22, 2025 1:08pm Iron deficiency anemia following bariatric surgery resolved March 15, 2025 3:40pm Iron deficiency anemia refractory to iron therapy resolved March 152024 3:40pm Anemia noneactive March 15, 2025 3:40pm Iron deficiency anemia following bariatric surgery resolved May 24, 2025 3:03pm Iron deficiency anemia refractory to iron therapy resolved May 24, 2025 3:03pm Anemia noneactive May 24 3:03pm [facility] Work Phone: 1(346) 992-173303-26-2025 History and physical note [facility] Medical Records Department [address] [place] [address] History & Physical Exam 02/01/25 1254 MR#: [id number] Acct: [id number] Name: LANA ADAME Rep #:[id number] : 1985 39 From: Shon Rivera DO PCP: Dr. Patricio Moeller MD Status:REG S [place] Location: [place] [address] HPI - General General Date of Admission: 02/01/25 Date of Service: 02/01/25 Chief Complaint: lower GI bleeding HPI Narrative LANA ADAME is a 39 F who presents Chief Complaint: rectal pain Details: LANA ADAME is a 39 F who presents to the office today for OV 12/07/2024 39y/o female presents for consultation with complaints of rectal pressure/tenesmus immediately postBM. She denies any change in bowel habits, weight loss, pain or bleeding. DRT revealed internal hemorrhoid at 3 o'clock and6 o'clock with mild discomfort at 3 o'clock. I have prescribed anusol supp. x 7 days. She will follow-up in one month. Patient Instructions: Anusol supp x7 days at HS F/U one month, if symptoms are persisting will schedule colonoscopy with banding - 1 BM daily, denies any straining - denies any bleeding - denies any abdominal pain - denies any family h/o colon CA - stools are soft formed - no improvement with Anusol suppositories PFSH Medical History Depression Anxiety Alcohol use Anemia Back pain Migraine headache Non-smoker CPAP (continuous positive airway pressure) dependence Shortness of breath on exertion History of echocardiogram Seizures Cardiology follow-up encounter Polycystic ovary Hormone deficiency Rectal discomfort Constipation Hepatic steatosis Obesity, morbid, BMI 40.0-49.9 Hypothyroidism Normal spontaneous vaginal delivery Home Medications ?Medication ?Instructions ?Recorded ?Last Taken ?Type bupropion HCl 300 mg 24 hr tablet, 300 mg PO DAILY Unknown History extended release lurasidone 80 mg tablet (Latuda) 20 mg PO DAILY Unknown History clonazepam 0.5 mg tablet 0.5 mg PO BID 12/07/24 Unkno wn History levothyroxine 112 mcg tablet 100 mcg PO DAILY 12/07/24 02/01/25 04:00 History Diltiazem 2% / Lidocaine 5% #30 grams 01/04/25 Unknown Rx ointment (compound) ondansetron 4 mg disintegrating 4 mg PO Q4H PRN nausea and vomiting 01/30/25 Unknown History tablet Allergy/AdvReac Type Severity Reaction Status Date / Time bee venom protein (honey bee) AdvReac Severe Anaphylaxis Verified 02/01/25 11:39 Family History Father Hypertension Obesity Mother Hypertension Obesity Grandfather Colon cancer Uncle Colon cancer Surgical History H/O hernia repair H/O gastric sleeve Social History household members: spouse Smoking Status: Former smoker how long ago did patient quit smoking: quit 20 years ago alcohol intake: current substance use type: does not use what type of physical activity do you participate in: walking frequency: 1-2 times per week additional social history: pt denies vaping, denies edibles, denies marijuana uses aspirin and ibuprofen as needed ROS Constitutional Constitutional: Denies fatigue, fever(s), poor appetite, weight gain or weight loss Gastrointestinal Gastrointestinal: Denies belching, bloating, change in bowel habits, change in stool character, chewing difficulty, coffee ground emesis, constipation, cramping, diarrhea, dyspepsia, dysphagia, earlysatiety, excessive flatus, fecalincontinence, heartburn, hematemesis, hematochezia, hemorrhoids, loose stools, melena, nausea, odynophagia, rectal bleeding, tenesmus, vomiting or weight changes Vital Signs Vital Signs Vital Signs: 02/01/25 11:40 02/01/25 11:40 Temperature 98.1 F Temperature Source Temporal Pulse Rate 56 L Respiratory Rate 16 Respiratory Pattern Normal Blood Pressure 119/83 H Blood Pressure Mean 95 Blood Pressure Source Monitor Blood Pressure Position Semi-Fowlers Blood Pressure Location Right Arm Pulse Ox 100 Oxygen Delivery Method Room Air Weight Weight: 160 lb 14.999 oz Body Mass Index (BMI) 29.4 Physical Exam Const alert, oriented x3, no apparent distress and healthy appearing General Appearance: cooperative GI normal to inspection, nondistended, normoactive bowel sounds, soft to palpation,non-tender and non-distended Percussion: normal to percussion Rectal Exam: deferred Results Lab / Micro Data Labs: Laboratory Results - last 24 hr 02/01/25 11:25: Urine Test Negative Assessment & Plan Assessment/Plan (1) Tenesmus (rectal): (2) Rectal bleeding: PLAN: Assessment and Plan Assessment and Plan (1) Tenesmus (rectal): Status: Acute (2) Hemorrhoid: Status: Acute Medications: New Diltiazem 2% / Lidocaine 5% ointment (compound) insert a pea sized amount into the rectum BID PRN pain 30 grams 0RF Plan 39y/o female presents for follow-up of rectal pain and hemorrhoids. She denies any improvement withAnusol suppositories. She denies any bleeding, change in bowel habits or bleeding. She will schedule colonoscopy with banding and trail diltiazem/lidocaine compound in the interim. Plan Details 02/01/25 1256 Cosigner Signature (if applicable): CC: Dr. Patricio Moeller MD; Shon Rivera DO~ Signed [facility]03-26-2025 [facility] Medical Records Department [address] [place] [address] History Physical Exam 02/01/25 1254 MR#: [id number] Acct: [id number] Name: LANA ADAME Rep #: [id number] : 1985 39 From: Shon Rivera DO PCP: Dr. Patricio Moeller MD Status:[facility] Location: [place] [address] HPI - General General Date of Admission: 02/01/25 Date of Service: 02/01/25 Chief Complaint: lower GI bleeding HPI Narrative LANA ADAME, is a 39 F who presents Chief Complaint: rectal pain Details: LANA ADAME, is a 39 F who presents to the office today for OV 12/07/2024 39y/o female presents for consultation with complaints of rectal pressure/tenesmus immediately post BM. She denies any change in bowel habits, weight loss, pain or bleeding. DRT revealed internal hemorrhoid at 3 o'clock and 6 o'clock with mild discomfort at 3 o'clock. I have prescribed anusol supp. x7 days. She will follow-up in one month. Patient Instructions: Anusol supp x7 days at HS F/U one month, if symptoms are persisting will schedule colonoscopy with banding - 1 BM daily, denies any straining - denies any bleeding - denies any abdominal pain - denies any family h/o colon CA - stools are soft formed - no improvement with Anusol suppositories PFSH Medical History Depression Anxiety Alcohol use Anemia Back pain Migraine headache Non-smoker CPAP (continuous positive airway pressure) dependence Shortness of breath on exertion History of echocardiogram Seizures Cardiology follow-up encounter Polycystic ovary Hormone deficiency Rectal discomfort Constipation Hepatic steatosis Obesity, morbid, BMI 40.0-49.9 Hypothyroidism Normal spontaneous vaginal delivery Home Medications ???Medication ???Instructions ???Recorded ???Last Taken ???Type bupropion HCl 300 mg 24 hr tablet, 300 mg PO DAILY 07/30/22 Unknown History extended release lurasidone 80 mg tablet (Latuda) 20 mg PO DAILY 12/06/24 Unknown Hi story clonazepam 0.5 mg tablet 0.5 mg PO BID 12/07/24 Unknown His tory levothyroxine 112 mcg tablet 100 mcg PO DAILY 12/07/24 02/01/25 04:00 History Diltiazem 2% / Lidocaine 5% #30 grams 01/04/25 Unknown Rx ointment (compound) ondansetron 4 mg disintegrating 4 mg PO Q4H PRN nausea and vomitin g 01/30/25 Unknown History tablet Allergy/AdvReac Type Severity Reaction Status Date / Time bee venom protein (honey bee) AdvReac Severe Anaphylaxis Verified 02/01/25 11:39 Family History Father Hypertension Obesity Mother Hypertension Obesity Grandfather Colon cancer Uncle Colon cancer Surgical History H/O hernia repair H/O gastric sleeve Social History household members: spouse Smoking Status: Former smoker how long ago did patient quit smoking: quit 20 years ago alcohol intake: current substance use type: does not use what type of physical activity do you participate in: walking frequency: 1-2 times per week additional social history: pt denies vaping, denies edibles, denies marijuana uses aspirin and ibuprofen as needed ROS Constitutional Constitutional: Denies fatigue, fever(s), poor appetite, weight gain or weight loss Gastrointestinal Gastrointestinal: Denies belching, bloating, change in bowel habits, change in stool character, chewing difficulty, coffee ground emesis, constipation, cramping, diarrhea, dyspepsia, dysphagia, early satiety, excessive flatus, fecal incontinence, heartburn, hematemesis, hematochezia, hemorrhoids, loose stools, melena, nausea, odynophagia, rectal bleeding, tenesmus, vomiting or weight changes Vital Signs Vital Signs Vital Signs: 02/01/25 11:40 02/01/25 11:40 Temperature 98.1 F Temperature Source Temporal Pulse Rate 56 L Respiratory Rate 16 Respiratory Pattern Normal Blood Pressure 119/83 H Blood Pressure Mean 95 Blood Pressure Source Monitor Blood Pressure Position Semi-Fowlers Blood Pressure Location Right Arm Pulse Ox 100 Oxygen Delivery Method Room Air Weight Weight: 160 lb 14.999 oz Body Mass Index (BMI) 29.4 Physical Exam Const alert, oriented x3, no apparent distress and healthy appearing General Appearance: cooperative GI normal to inspection, nondistended, normoactive bowel sounds, soft to palpation, non-tender and non- distended Percussion: normal to percussion Rectal Exam: deferred Results Lab / Micro Data Labs: Laboratory Results - last 24 hr 02/01/25 11:25: Urine Test Negative Assessment Plan Assessment/Plan (1) Tenesmus (rectal): (2) Rectal bleeding: (more content not included)...[facility] 02-01-2025 Consult note [facility] Medical Records Department [address] [place] [address] Pre-Anesthesia Evaluation 02/01/25 1147 MR#: [id number] Acct: [id number] Name: LANA ADAME Rep #:[id number] : 1985 39 From: Piotr Munson MD PCP: Dr. Patricio Moeller MD Status:REG S DC Y Race: C Location: [place] [address] ASA Classification* ASA Classification ASA Classification: 2 Assessment & Plan Anesthesia* Anesthesia Assessment Anesthesia Assessment: Discussed sedation and/or anesthesia options, risks, benefits, and alternatives with patient/parents/legal guardian/POA. Questions invited. The patient/parents/legal guardian/POA seems to understand and agrees to proceedwith anesthesia plan. Reviewed the physical assessment, medical history, allergy history and patient home medications list prior to surgery/procedure/anesthetic and documented any changes. Performed airway and anesthesia risk assessments. Anesthesia Type Anesthesia Type: MAC Anesthesia Focused Assessment* Airway Assessment Mouth opens: >3 cm Mallampati Score: II Focused Labs Anesthesia Preop lab: CBC WBC 4.6 K/mm3 (4.4-11.0) 01/25/25 13:01/25/25 RBC 4.33 M/mm3 (4.2-5.4) 01/25/25 13:26 01/25/25 Hgb 11.0 g/dL (12.0-15.0) L 01/25/25 13: 5 Hct 35.2 % (37-47) L 01/25/25 13:01/25/25 Plt Count 322 K/mm3 (150-450) 01/25/25 13:26 01/25/25 CHEMISTRY Potassium 4.1 mmol/L (3.3-5.1) 01/25/25 13:01/25/25 Sodium 138 mmol/L (133-145) 01/25/25 13:26 01/25/25 Magnesium 2.3 mg/dL (1.5-2.2) H 01/25/25 13:01/25/25 BUN 8 mg/dL (4-19) 01/25/25 13:01/25/25 Creatinine 1.02 mg/dL (0.70-1.20) 01/25/25 13:26 01/25/25 Glucose 75 mg/dL (70-99) 01/25/25 13:26 01/25/25 POC Glucose 85 mg/dL (70-110) 07/18/16 06:52 07/18/16 TSH 0.129 uIU/mL (0.358-3.740) L 11/28/24 09:26 COAG Urine Test Negative Negative 02/01/25 11:25 02/01/25 Pre-Assessment Diagnosis/Proposed Procedure Planned Operative Procedure(s): CSCOPE HEMORRHOID BANDING Anesthesia History 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 When Was Last Pacemaker Check QUESTION #4 FULL TEXT: You/Your Family Experience fever (hyperthermia) with Anesthesia Last Oral Intake Last Oral intake: Last Oral Intake NPO since Meds taken in AM with sips of water? 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 Female Yes 01/30/25 11:46 HX of Motion Sickness No 01/30/25 11:46 HX of N/V After Surgery No 01/30/25 11:46 Non-Smoker Yes 01/30/25 11:46 Duration of Surgery greater No 01/30/25 11:46 than 60 minutes Number of Risk Factors 2 01/30/25 11:46 PONV Score Moderate Risk 01/30/25 11:46 Height & Weight Height & Weight: Anesthesia: Height & Weight Height 5 ft 2 in 01/30/25 06:30 Respiratory Assessment Respiratory Assessment - drivers' cash clerk: Respiratory Tract Infection Hx - drivers' cash clerk Hx Respiratory Tract Infection Yes: SINUS COLD 01/30/25 11:46 STOP Sleep Apnea STOP Sleep Apnea - drivers' cash clerk: STOP Sleep Apnea - drivers' cash clerk Hx Hypertension No 01/30/25 11:46 Hx Sleep Apnea Yes 01/30/25 11:46 CPAP Yes 01/30/25 11:46 BIPAP No 01/30/25 11:46 Do you snore loudly (louder No 01/30/25 11:46 than talking or can be heard Do you often feel tired/ No 01/30/25 11:46 fatigued/ sleepy during daytime? Has anyone observed you stop No 01/30/25 11:46 breathing during sleep? STOP Results Positive 01/30/25 11:46 QUESTION #5 FULL TEXT : Do you snore loudly (louder than talking or can be heard through closeddoors)? 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 Specify any problems Hx of Preganancy in last 3 No 01/30/25 11:46 Months Nurse Filling Out Transfusion DSCHRIBER 01/30/25 11:46 & Questions: Date: 01/30/25 01/30/25 11:46 Time: 11:47 01/30/25 11:46 Patient unable to answer at this time (ie. 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 Hx Now No 01/30/25 11:46 Gestational Age (in weeks): EDC: Hx Hx Para Hx Section SAB No 01/30/25 11:46 PFSH Medical History Depression Anxiety Alcohol use Anemia Back pain Migraine headache Non-smoker CPAP (continuous positive airway pressure) dependence Shortness of breath on exertion History of echocardiogram Seizures Cardiology follow-up encounter Polycystic ovary Hormone deficiency Rectal discomfort Constipation Hepatic steatosis Obesity, morbid, BMI 40.0-49.9 Hypothyroidism Normal spontaneous vaginal delivery Home Medications ?Medication ?Instructions ?Recorded ?Last Taken ?Type bupropion HCl 300 mg 24 hr tablet, 300 mg PO DAILY Unknown History extended release lurasidone 80 mg tablet (Latuda) 20 mg PO DAILY Unknown History clonazepam 0.5 mg tablet 0.5 mg PO BID 12/07/24 Unkno wn History levothyroxine 112 mcg tablet 100 mcg PO DAILY 12/07/24 02/01/25 04:00 History Diltiazem 2% / Lidocaine 5% #30 grams 01/04/25 Unknown Rx ointment (compound) ondansetron 4 mg disintegrating 4 mg PO Q4H PRN nausea and vomiting 01/30/25 Unknown History tablet Allergy/AdvReac Type Severity Reaction Status Date / Time bee venom protein (honey bee) AdvReac Severe Anaphylaxis Verified 02/01/25 11:39 Family History Father Hypertension Obesity Mother Hypertension Obesity Grandfather Colon cancer Uncle Colon cancer Surgical History H/O hernia repair H/O gastric sleeve Social History household members: spouse Smoking Status: Former smoker how long ago did patient quit smoking: quit 20 years ago alcohol intake: current substance use type: does not use what type of physical activity do you participate in: walking frequency: 1-2 times per week additional social history: pt denies vaping, denies edibles, denies marijuana uses aspirin and ibuprofen as needed Review of Systems (Anesthesia) ROS Narrative System reviewed and no additional complaints, except as documented. 02/01/25 1148 > Date _ Piotr Munson MD Cosigner Signature: Date CC: ~ Signed [facility]03-19-2025 Evaluation note* Diagnosis Onset Date Resolution Status Admit Date Atrophic skin acute January 25, 2025 1:44pm Encounter for cosmetic surgery acute January 25, 2025 1:44pm Localized adiposity of abdomen acute January 25, 2025 1:44pm Rectal bleeding acute January 11:16am Tenesmus (rectal) acute January 082024 11:16am Atrophic skin acute February 08, 2025 2:03pm Encounter for cosmetic surgery acute February 08, 2025 2:03pm Localized adiposity of abdomen acute February 08, 2025 2:03pm Atrophic skin acute February 22, 2025 1:08pm Encounter for cosmetic surgery acute February 22, 2025 1:08pm Localized adiposity of abdomen acute February 22, 2025 1:08pm Iron deficiency anemia following bariatric surgery resolved March 15, 2025 3:40pm Iron deficiency anemia refractory to iron therapy resolved March 152024 3:40pm Anemia noneactive March 15, 2025 3:40pm Iron deficiency anemia following bariatric surgery resolved May 24, 2025 3:03pm Iron deficiency anemia refractory to iron therapy resolved May 24, 2025 3:03pm Anemia noneactive May 24 3:03pm [facility] Work Phone: [phone]) 592-277403-10-2025 History of Present illness Narrative* Alondra Caro MA - 01/16/2025 2:30 PM EDT [facility] ROOMING NOTE POST WEIGHT LOSS SURGERY FOLLOW UP Patient: Lana Adame Service Date: 01/16/2025 Patient is 2 year(s) s/p Sleeve Gastrectomy Today's Metrics: Post-Surgical Weight Loss Date: 01/16/25 Height: 5' 2.5" (158.8 cm) Weight: 168 lb 6.4 oz (76.4 kg) BMI: 30.31 Weight Change: -4 lbs Total Weight Change: -89.4 lbs % EBWL: 64% Comments: 24M POP Post-op Weight Metrics: Post-Surgical Weight Loss Date: 01/16/25 Height: 5' 2.5" (158.8 cm) Weight: 168 lb 6.4 oz (76.4 kg) BMI: 30.31 Weight Change: -4 lbs Total Weight Change: -89.4 lbs % EBWL: 64% Comments: 24M POP (From Surgical Weight Loss Tracker) Patient has the following questions: EATING 4-5 Pain: Patient rates pain on scale 0-10 as: 0 Exercise Compliance: Exercising: yes If yes: Type: walking Times per week: 5 Min per session: 30 Falls Risk Assessment Patient does take medications which affect BP or mental status Patient does not t have newly prescribed or changed dosage of medications within past 30 days whichaffect BP or mental status Patient has not fallen in the past 2 months Patient does not t demonstrate unsteady gait Patient uses the following ambulatory assistive devices: NONE Patient states the presence of the following traits which increases risk of fall: NONE Patient is not on home O2 Pre-op Weight Metrics: Labs Completed: yes - If NO, patient instructed to get labs drawn today or [facility] If YES: Labs completed at [facility]? yes If yes see Labs Tab Labs completed at Non-[facility] facility? no If yes see Encounters Tab - Orders only - Historical Provider - Date: 05/23/24 Completed by: Alondra Caro MA * Hannah Newell MD - 01/16/2025 2:30 PM EDT [facility] POST-OPERATIVE WEIGHT LOSS MANAGEMENT PROGRESS NOTE - FOLLOW UP HPI: Patient here today for 24 month post-weight loss surgery follow up @GENDER@ patient feeling well. Denies nausea, vomiting, dysphagia, or any GERD Sx. Currently is nottaking a PPI. Patient states diet and exercise is going is. Currently is eating 65-75 gm/day protein, and is compliant with prescribed multivitamins and supplements. Weight trend since last visit: lost 4 lbs in 1 yr. Pt doing well with diet, eating 4-5 times per day and sensible choices. Pt happy at current wt. Pt taking supplements as advised. Labs were pending. All labs were: Social History Tobacco Use Smoking status: Former Current packs/day: 0.25 Average packs/day: 0.3 packs/day for 0.8 years (0.2 ttl pk-yrs) Types: Cigarettes Smokeless tobacco: Never Substance Use Topics Alcohol use: Not Currently Alcohol/week: 2.0 standard drinks of alcohol Types: 2 Standard drinks or equivalent per week This patient's excess weight is causing the following co-morbid conditions at this time: KARINE with or without CPAP PLAN Physical Examination: Ht 5' 2.5" (1.588 m) Wt 168 lb 6.4 oz (76.4 kg) BMI 30.31 kg/m Vital signs are stable. General: This patient is awake, alert, and oriented, and is in no apparent distress. Cardiac: Regular rate and rhythm without evidence of murmur. Respiratory: Clear to auscultation bilaterally. Abdomen: Obese, soft, non-tender, non-distended without masses/ No evidence of abdominal hernia / Incisions consistent with previous surgeries. Head and Neck: Obese, normocephalic and atraumatic/soft and supple, no lymphadenopathy or obvious bruits. Extremities: No cyanosis, clubbing or edema/ No calf tenderness/No restrictions of movement, is ambulatory without assistance. Neurological: Intact x 4 extremities, no focal deficits notes. Skin: No rashes or lesions noted. Rectal: Deferred Current Diet This patient s current diet is:none Her diet contains adequate amounts of protein, adequate amounts of healthy fats, adequate amounts of green, leafy vegetables, and adequate amounts of fruits. Her comfort foods include: none Current Activity This patient currently walking most days with dog. Current Eating Behaviors This patients demonstrates the following behaviors as they relate to her eating:non She eats approximately 4-5 times per day. Progress Made Towards Goals: 3 month weight goal: 0 6 month weight goal: 0 12 month weight goal: 0 Plan: Diagnosis Plan 1. KARINE (obstructive sleep apnea) 2. BMI 30.0-30.9,adult 3. Obesity due to excess calories, unspecified class, unspecified whether serious comorbidity present 4. Intestinal malabsorption, unspecified type KARINE- stable, on daily cpap, con't tx, will monitor. Malabsorption- s/p remote WLS, con't supplements as advised, pending POP labs as ordered last visit, will contact pt with results. Obesity- Stable chronic, pt doing well with diet, is at goal wt. No current medical concerns. F/U 1 yr or sooner prn any problems. Total time spent on this visit 20 minutes, including preparing to see the patient, counseling and educating, ordering labs and medication refills. [x] Protein goal of 1g protein per 1 kg of ideal body weight: 80 grams [] Patient advised to maintain a food/exercise/behavior diary until next physician visit. Pt to bring the completed diary to next visit [] Lab order provided to patient for labs to be drawn for next visit Patient instructed to continue post-weight loss surgery diet recommendations. Patient instructed to continue to monitor for signs and symptoms of GERD Psych concerns : no Excessive skin concerns: no Other: Physician Diet Recommendations given to patient See Follow up Section of today's encounter for next visit and additional scheduling orders No orders of the defined types were placed in this encounter. Medications ordered during this encounter: Outpatient Encounter Medications as of 01/16/2025 Medication Sig Dispense Refill buPROPion XL (Wellbutrin XL) 300 MG 24 hr tablet 300 mg every evening. 450mg total CALCIUM CITRATE PO Take 500 mg by mouth 3 times daily. Cholecalciferol (VITAMIN D3 PO) Take 4,000 Int'l Units by mouth before bedtime. Cyanocobalamin (B-12) [address] 1 tablet under the tongue 1 (one) time per week. lurasidone (Latuda) 20 MG tablet Take 20 mg by mouth before bedtime. Take with food. Magnesium 400 MG capsule Take 1 capsule by mouth daily. Multiple Vitamins-Iron (MULTIVITAMIN/IRON PO) Take 1 tablet by mouth daily. Respiratory Therapy Supplies (CareTouch 2 CPAP Hose Seed Buyer) misc 11 cm. levothyroxine (Synthroid, Levoxyl) 112 MCG tablet Take 112 mcg by mouth daily. [DISCONTINUED] buPROPion XL (Wellbutrin XL) 150 MG 24 hr tablet 150 mg every evening. 450mg total No facility-administered encounter medications on file as of 01/16/2025. Visit Diagnoses: 1. KARINE (obstructive sleep apnea) 2. BMI 30.0-30.9,adult 3. Obesity due to excess calories, unspecified class, unspecified whether serious comorbidity present 4. Intestinal malabsorption, unspecified type Current Medications: Patient's Medications New Prescriptions No medications on file Previous Medications BUPROPION XL (WELLBUTRIN XL) 300 MG 24 HR TABLET 300 mg every evening. 450mg total CALCIUM CITRATE PO Take 500 mg by mouth 3 times daily. CHOLECALCIFEROL (VITAMIN D3 PO) Take 4,000 Int'l Units by mouth before bedtime. CYANOCOBALAMIN (B-12) [address] 1 tablet under the tongue 1 (one) time per week. LEVOTHYROXINE (SYNTHROID, LEVOXYL) 112 MCG TABLET Take 112 mcg by mouth daily. LURASIDONE (LATUDA) 20 MG TABLET Take 20 mg by mouth before bedtime. Take with food. MAGNESIUM 400 MG CAPSULE Take 1 capsule by mouth daily. MULTIPLE VITAMINS-IRON (MULTIVITAMIN/IRON PO) Take 1 tablet by mouth daily. RESPIRATORY THERAPY SUPPLIES (CARETOUCH 2 CPAP HOSE POSTAL TRANSPORTATION CLERK) MISC 11 cm. Modified Medications No medications on file Discontinued Medications BUPROPION XL (WELLBUTRIN XL) 150 MG 24 HR TABLET 150 mg every evening. 450mg total documented in this [facility]03-10-2025 [facility] POST-OPERATIVE WEIGHT LOSS MANAGEMENT PROGRESS NOTE - FOLLOW UP HPI: Patient here today for 24 month post-weight loss surgery follow up @GENDER@ patient feeling well. Denies nausea, vomiting, dysphagia, or any GERD Sx. Currently is not taking a PPI. Patient states diet and exercise is going is. Currently is eating 65-75 gm/day protein, and is compliant with prescribed multivitamins and supplements. Weight trend since last visit: lost 4 lbs in 1 yr. Pt doing well with diet, eating 4-5 times per day and sensible choices. Pt happy at current wt. Pt taking supplements as advised. Labs were pending. All labs were: Social History Tobacco Use Smoking status: Former Current packs/day: 0.25 Average packs/day: 0.3 packs/day for 0.8 years (0.2 ttl pk-yrs) Types: Cigarettes Smokeless tobacco: Never Substance Use Topics Alcohol use: Not Currently Alcohol/week: 2.0 standard drinks of alcohol Types: 2 Standard drinks or equivalent per week This patient's excess weight is causing the following co-morbid conditions at this time: KARINE with or without CPAP PLAN Physical Examination: Ht 5' 2.5" (1.588 m) Wt 168 lb 6.4 oz (76.4 kg) BMI 30.31 kg/m? Vital signs are stable. General: This patient is awake, alert, and oriented, and is in no apparent distress. Cardiac: Regular rate and rhythm without evidence of murmur. Respiratory: Clear to auscultation bilaterally. Abdomen: Obese, soft, non-tender, non-distended without masses/ No evidence of abdominal hernia / Incisions consistent with previous surgeries. Head and Neck: Obese, normocephalic and atraumatic/soft and supple, no lymphadenopathy or obvious bruits. Extremities: No cyanosis, clubbing or edema/ No calf tenderness/No restrictions of movement, is ambulatory without assistance. Neurological: Intact x 4 extremities, no focal deficits notes. Skin: No rashes or lesions noted. Rectal: Deferred Current Diet This patient?s current diet is:none Her diet contains adequate amounts of protein, adequate amounts of healthy fats, adequate amounts of green, leafy vegetables, and adequate amounts of fruits. Her comfort foods include: none Current Activity This patient currently walking most days with dog. Current Eating Behaviors This patients demonstrates the following behaviors as they relate to her eating:non She eats approximately 4-5 times per day. Progress Made Towards Goals: 3 month weight goal: 0 6 month weight goal: 0 12 month weight goal: 0 Plan: Diagnosis Plan 1. KARINE (obstructive sleep apnea) 2. BMI 30.0-30.9,adult 3. Obesity due to excess calories, unspecified class, unspecified whether serious comorbidity present 4. Intestinal malabsorption, unspecified type KARINE- stable, on daily cpap, con't tx, will monitor. Malabsorption- s/p remote WLS, con't supplements as advised, pending POP labs as ordered last visit, will contact pt with results. Obesity- Stable chronic, pt doing well with diet, is at goal wt. No current medical concerns. F/U 1 yr or sooner prn any problems. Total time spent on this visit 20 minutes, including preparing to see the patient, counseling and educating, ordering labs and medication refills. [x] Protein goal of 1g protein per 1 kg of ideal body weight: 80 grams [] Patient advised to maintain a food/exercise/behavior diary until next physician visit. Pt to bring the completed diary to next visit [] Lab order provided to patient for labs to be drawn for next visit Patient instructed to continue post-weight loss surgery diet recommendations. Patient instructed to continue to monitor for signs and symptoms of GERD Psych concerns : no Excessive skin concerns: no Other: Physician Diet Recommendations given to patient See Follow up Section of today's encounter for next visit and additional scheduling orders No orders of the defined types were placed in this encounter. Medications ordered during this encounter: Outpatient Encounter Medications as of 01/16/2025 Medication Sig Dispense Refill buPROPion XL (Wellbutrin XL) 300 MG 24 hr tablet 300 mg every evening. 450mg total CALCIUM CITRATE PO Take 500 mg by mouth 3 times daily. Cholecalciferol (VITAMIN D3 PO) Take 4,000 Int'l Units by mouth before bedtime. Cyanocobalamin (B-12) [address] 1 tablet under the tongue 1 (one) time per week. lurasidone (Latuda) 20 MG tablet Take 20 mg by mouth before bedtime. Take with food. Magnesium 400 MG capsule Take 1 capsule by mouth daily. Multiple Vitamins-Iron (MULTIVITAMIN/IRON PO) Take 1 tablet by mouth daily. Respiratory Therapy Supplies (CareTouch 2 CPAP Hose Seed Buyer) misc 11 cm. levothyroxine (Synthroid, Levoxyl) 112 MCG tablet Take 112 mcg by mouth daily. [DISCONTINUED] buPROPion XL (Wellbutrin XL) 150 MG 24 hr tablet 150 mg every evening. 450mg total No facility-administered encounter medications on file as of 01/16/2025. Vi (more content not included)...[facility] [id number] Evaluation note* Diagnosis Onset Date Resolution Status Admit Date Hemorrhoid acute December 07, 2024 8:42am Tenesmus (rectal) acute December 07, 2024 8:42am Hemorrhoid acute January 04, 2025 1:51pm Tenesmus (rectal) acute 2024 1:51pm Atrophic skin acute January 25, 2025 1:44pm Encounter for cosmetic surgery acute January 25, 2025 1:44pm Localized adiposity of abdomen acute January 25, 2025 1:44pm Rectal bleeding acute January 11:16am Tenesmus (rectal) acute January 082024 11:16am [facility] Work Phone: 1(321) 839-326401-29-2025 Evaluation note* Diagnosis Onset Date Resolution Status Admit Date Hemorrhoid acute December 07, 2024 8:42am Tenesmus (rectal) acute December 07, 2024 8:42am Hemorrhoid acute January 04, 2025 1:51pm Tenesmus (rectal) acute 2024 1:51pm Atrophic skin acute January 25, 2025 1:44pm Encounter for cosmetic surgery acute January 25, 2025 1:44pm Localized adiposity of abdomen acute January 25, 2025 1:44pm Rectal bleeding acute January 11:16am Tenesmus (rectal) acute January 082024 11:16am Atrophic skin acute February 08, 2025 2:03pm Encounter for cosmetic surgery acute February 08, 2025 2:03pm Localized adiposity of abdomen acute February 08, 2025 2:03pm [facility] Work Phone: 1(303) 707-320501-29-2025 Evaluation note* Diagnosis Onset Date Resolution Status Admit Date Hemorrhoid acute December 07, 2024 8:42am Tenesmus (rectal) acute December 07, 2024 8:42am Hemorrhoid acute January 04, 2025 1:51pm Tenesmus (rectal) acute 2024 1:51pm Atrophic skin acute January 25, 2025 1:44pm Encounter for cosmetic surgery acute January 25, 2025 1:44pm Localized adiposity of abdomen acute January 25, 2025 1:44pm Rectal bleeding acute January 11:16am Tenesmus (rectal) acute January 082024 11:16am Atrophic skin acute February 08, 2025 2:03pm Encounter for cosmetic surgery acute February 08, 2025 2:03pm Localized adiposity of abdomen acute February 08, 2025 2:03pm Atrophic skin acute February 22, 2025 1:08pm Encounter for cosmetic surgery acute February 22, 2025 1:08pm Localized adiposity of abdomen acute February 22, 2025 1:08pm [facility] Work Phone: 1([phone]) 141-467601-29-2025 Evaluation note* Diagnosis Onset Date Resolution Status Admit Date Hemorrhoid acute December 07, 2024 8:42am Tenesmus (rectal) acute December 07, 2024 8:42am Hemorrhoid acute January 04, 2025 1:51pm Tenesmus (rectal) acute ua2024 1:51pm Atrophic skin acute January 25, 2025 1:44pm Encounter for cosmetic surgery acute January 25, 2025 1:44pm Localized adiposity of abdomen acute January 25, 2025 1:44pm Rectal bleeding acute January 11:16am Tenesmus (rectal) acute January 082024 11:16am Atrophic skin acute February 08, 2025 2:03pm Encounter for cosmetic surgery acute February 08, 2025 2:03pm Localized adiposity of abdomen acute February 08, 2025 2:03pm Atrophic skin acute February 22, 2025 1:08pm Encounter for cosmetic surgery acute February 22, 2025 1:08pm Localized adiposity of abdomen acute February 22, 2025 1:08pm Iron deficiency anemia refractory to iron therapy acute March 152024 3:40pm Iron deficiency anemia following bariatric surgery chronic March 15, 2025 3:40pm Anemia noneactive March 15, 2025 3:40pm [facility] Work Phone: 1(145) 487-293810-16-2024 History of Present illness Narrative* Wilberto Morales MD - 08/24/2024 3:08 PM EDT Lana is a 38 year old who presents for an annual gynecologic exam with complaints, pressure in rectal area, wonders about hemorrhoid. No bleeding . Menses: cycles every 28 days and 5-6 days of flow. Contraception: vasectomy HPV vaccine: No Last Pap: 08/11/2023 normal HPV: 08/05/2023 negative History of abnormal pap: No Last mammogram: never Sexually active: Yes OB History T2 L2 SAB0 IAB0 Ectopic0 Multiple0 Live Births2 [employer] History LMP: 07/24/2024 (Within Days), Having periods Age at Menarche: Age at First : Age at Menopause: [employer] History Comments: Sexual Activity: Yes; Male Contraception: Vasectomy PAST MEDICAL HISTORY Diagnosis Date Depression Hypothyroid Psychiatric disorder PAST SURGICAL HISTORY Procedure Laterality Date LAP SLEEVE GASTRECTOMY 12/22/2022 FAMILY HISTORY Problem Relation Age of Onset Hypertension Mother Hypertension Father SOCIAL HISTORY Social History Tobacco Use Smoking status: Never Smokeless tobacco: Never Vaping Use Vaping status: Never Used Substance Use Topics Alcohol use: Yes Comment: Social Drug use: Never REVIEW OF SYSTEMS Abdomen: No abdominal pain, nausea, vomiting, diarrhea, or constipation. No bloating, early satiety, indigestion, or increased flatulence. Bladder: No dysuria, gross hematuria, urinary frequency, urinary urgency, or incontinence. Breast: No breast lumps, nipple d/c, overlying skin changes, redness or skin retraction. Allergies and current medication updated:Yes SENSITIVE EXAM: The sensitive examination was discussed with the Patient or Patient's Authorized Cleaner Assistant. As applicable, any other physician, advance practice provider, medical student, or other health professional student that will be observing or involved in the sensitive examination for educational or training purposes was discussed with the Patient or Authorized Cleaner Assistant. The Patient or Authorized Cleaner Assistant has agreed to proceed with the sensitive examination. (Sensitive examination includes inspection and/or palpation of the breasts, pelvis, prostate and anorectal regions). EXAM: BP 130/84 Ht 5' 2.25" (1.58m) Wt 174 lb (78.9kg) LMP 07/24/2024 BMI 31.58 kg/(m^2). GENERAL: pleasant, female in no apparent [...] external genitalia normal, normal Bartholin's glands, urethra, [place]'s glands, no vulvar lesions, no cervical lesions, good vaginal support, physiologic discharge present, normal appearing perineal body and perianal region BIMANUAL: uterus normal size, shape and consistency, no adnexal masses, and non-tender RECTOVAGINAL: deferred. NEURO: alert and oriented x3,exam grossly non-focal EXTREMITIES: normal ASSESSMENT/PLAN: 1) Health maintenance: Pap/HPV up to date. Mammogram starting age 40. 2) Contraception: vasectomy. Contraceptive options reviewed and information provided. 3) STD screening: Declined STD check. 4) Follow up one year or sooner as needed [facility]berto Morales [facility] of Present illness Narrative* Alondra Caro, [place] - 07/18/2024 2:30 PM EDT [facility] ROOMING NOTE POST WEIGHT LOSS SURGERY FOLLOW UP Patient: Lana Adame Service Date: 07/18/2024 Patient is 18 month(s) s/p Sleeve Gastrectomy Today's Metrics: Post-Surgical Weight Loss Date: 07/18/24 Height: 5' 2.5" (158.8 cm) Weight: 172 lb 6.4 oz (78.2 kg) BMI: 31.03 Weight Change: -8 lbs Total Weight Change: -85.4 lbs % EBWL: 61% Comments: 18M POP Post-op Weight Metrics: Post-Surgical Weight Loss Date: 07/18/24 Height: 5' 2.5" (158.8 cm) Weight: 172 lb 6.4 oz (78.2 kg) BMI: 31.03 Weight Change: -8 lbs Total Weight Change: -85.4 lbs % EBWL: 61% Comments: 18M POP (From Surgical Weight Loss Tracker) Patient has the following questions: None Reported Pain: Patient rates pain on scale 0-10 as: 0 Exercise Compliance: Exercising: yes If yes: Type: walking Times per week: 5 Min per session: 30 Falls Risk Assessment Patient does take medications which affect BP or mental status Patient does not t have newly prescribed or changed dosage of medications within past 30 days whichaffect BP or mental status Patient has not fallen in the past 2 months Patient does not t demonstrate unsteady gait Patient uses the following ambulatory assistive devices: NONE Patient states the presence of the following traits which increases risk of fall: NONE Patient is not on home O2 Pre-op Weight Metrics: Labs Completed: yes - If NO, patient instructed to get labs drawn today or [facility] If YES: Labs completed at [facility]? yes If yes see Labs Tab Labs completed at Non-[facility] facility? no If yes see Encounters Tab - Orders only - Historical Provider - Date: Completed by: Alondra Caro MA * Hannah Newell MD - 07/18/2024 2:30 PM EDT [facility] POST-OPERATIVE WEIGHT LOSS MANAGEMENT PROGRESS NOTE - FOLLOW UP HPI: Patient here today for 18 month post-weight loss surgery follow up @GENDER@ patient feeling well. Denies nausea, vomiting, dysphagia, or any GERD Sx. Currently is nottaking a PPI. Patient states diet and exercise is going well. Currently is eating 65-75 gm/day protein, and is compliant with prescribed multivitamins and supplements. Weight trend since last visit: lost 8 lbs in 6 months. Pt doing well with diet, eating 5-6 times per day and sensible choices. Pt happy at her current wt. Labs were completed, addressed by surg team. All labs were: Social History Tobacco Use Smoking status: Former Current packs/day: 0.25 Average packs/day: 0.3 packs/day for 0.8 years (0.2 ttl pk-yrs) Types: Cigarettes Smokeless tobacco: Never Substance Use Topics Alcohol use: Not Currently Alcohol/week: 2.0 standard drinks of alcohol Types: 2 Standard drinks or equivalent per week This patient's excess weight is causing the following co-morbid conditions at this time: KARINE with or without CPAP PLAN Physical Examination: BP 138/86 Pulse 73 Ht 5' 2.5" (1.588 m) Wt 172 lb 6.4 oz (78.2 kg) BMI 31.03 kg/m Vital signs are stable. General: This patient is awake, alert, and oriented, and is in no apparent distress. Cardiac: Regular rate and rhythm without evidence of murmur. Respiratory: Clear to auscultation bilaterally. Abdomen: Obese, soft, non-tender, non-distended without masses/ No evidence of abdominal hernia / Incisions consistent with previous surgeries. Head and Neck: Obese, normocephalic and atraumatic/soft and supple, no lymphadenopathy or obvious bruits. Extremities: No cyanosis, clubbing or edema/ No calf tenderness/No restrictions of movement, is ambulatory without assistance. Neurological: Intact x 4 extremities, no focal deficits notes. Skin: No rashes or lesions noted. Rectal: Deferred Current Diet This patient s current diet is: none Her diet contains adequate amounts of protein, adequate amounts of healthy fats, adequate amounts of green, leafy vegetables, and adequate amounts of fruits. Her comfort foods include: none Current Activity This patient currently walking most days. Current Eating Behaviors This patients demonstrates the following behaviors as they relate to her eating:none She eats approximately 5-6 times per day. Progress Made Towards Goals: 3 month weight goal: 0 6 month weight goal: 0 12 month weight goal: 0 Plan: Diagnosis Plan 1. KARINE (obstructive sleep apnea) 2. BMI 31.0-31.9,adult 3. Obesity due to excess calories, unspecified classification, unspecified whether serious comorbidity present 4. Deficiency of multiple nutrient elements CBC auto differential Comprehensive metabolic panel Ferritin Folate Iron Magnesium Vitamin B1, whole blood ([facility]) Vitamin B12 Zinc (Sendout) Vitamin D Deficiency Screening (Vit D 25) CBC auto differential Comprehensive metabolic panel Ferritin Folate Iron Magnesium Vitamin B1, whole blood ([facility]) Vitamin B12 Zinc (Sendout) Vitamin D Deficiency Screening (Vit D 25) 5. Intestinal malabsorption, unspecified type CBC auto differential Comprehensive metabolic panel Ferritin Folate Iron Magnesium Vitamin B1, whole blood ([facility]) Vitamin B12 Zinc (Sendout) Vitamin D Deficiency Screening (Vit D 25) CBC auto differential Comprehensive metabolic panel Ferritin Folate Iron Magnesium Vitamin B1, whole blood ([facility]) Vitamin B12 Zinc (Sendout) Vitamin D Deficiency Screening (Vit D 25) 6. Screening, lipid Lipid panel Lipid panel KARINE- stable, on daily cpap, con't tx, will monitor. Malabsorption- stable, con't current supplements, repeat POP labs in 6 months. Obesity- Stable chronic, pt doing well with diet, is at goal wt. No medical concerns. F/U 6 months or sooner prn. MDM- pt's medical conditions place them at moderate risk of complications, morbidity and mortality. [x] Protein goal of 1g protein per 1 kg of ideal body weight: 80 grams [] Patient advised to maintain a food/exercise/behavior diary until next physician visit. Pt to bring the completed diary to next visit [] Lab order provided to patient for labs to be drawn for next visit Patient instructed to continue post-weight loss surgery diet recommendations. Patient instructed to continue to monitor for signs and symptoms of GERD Psych concerns : no Excessive skin concerns: no Other: Physician Diet Recommendations given to patient See Follow up Section of today's encounter for next visit and additional scheduling orders No orders of the defined types were placed in this encounter. Medications ordered during this encounter: Outpatient Encounter Medications as of 07/18/2024 Medication Sig Dispense Refill buPROPion XL (Wellbutrin XL) 150 MG 24 hr tablet 150 mg every evening. 450mg total buPROPion XL (Wellbutrin XL) 300 MG 24 hr tablet 300 mg every evening. 450mg total CALCIUM CITRATE PO Take 500 mg by mouth 3 times daily. Cholecalciferol (VITAMIN D3 PO) Take 4,000 Int'l Units by mouth before bedtime. Cyanocobalamin (B-12) [address] 1 tablet under the tongue 1 (one) time per week. levothyroxine (Synthroid, Levoxyl) 112 MCG tablet Take 112 mcg by mouth daily. lurasidone (Latuda) 20 MG tablet Take 20 mg by mouth before bedtime. Take with food. Magnesium 400 MG capsule Take 1 capsule by mouth daily. Multiple Vitamins-Iron (MULTIVITAMIN/IRON PO) Take 1 tablet by mouth daily. Respiratory Therapy Supplies (CareTouch 2 CPAP Hose Seed Buyer) misc 11 cm. [DISCONTINUED] omeprazole (PriLOSEC) [address] capsule Take 1 capsule (20 mg) by mouth daily. Do notcrush or chew. (Patient taking differently: Take 20 mg by mouth daily. Do not crush or chew.) 90 capsule 1 No facility-administered encounter medications on file as of 07/18/2024. Visit Diagnoses: 1. KARINE (obstructive sleep apnea) 2. BMI 31.0-31.9,adult 3. Obesity due to excess calories, unspecified classification, unspecified whether serious comorbidity present Current Medications: Patient's Medications New Prescriptions No [...] Int'l Units by mouth before bedtime. CYANOCOBALAMIN (B-12) [address] 1 tablet under the tongue 1 (one) time per week. LEVOTHYROXINE (SYNTHROID, LEVOXYL) 112 MCG TABLET Take 112 mcg by mouth daily. LURASIDONE (LATUDA) 20 MG TABLET Take 20 mg by mouth before bedtime. Take with food. MAGNESIUM 400 MG CAPSULE Take 1 capsule by mouth daily. MULTIPLE VITAMINS-IRON (MULTIVITAMIN/IRON PO) Take 1 tablet by mouth daily. RESPIRATORY THERAPY SUPPLIES (CARETOUCH 2 CPAP HOSE POSTAL TRANSPORTATION CLERK) MISC 11 cm. Modified Medications No medications on file Discontinued Medications OMEPRAZOLE (PRILOSEC) [address] CAPSULE Take 1 capsule (20 mg) by mouth daily. Do not crush or chew. documented in this [facility]09-09-2024 [facility]ENTER POST-OPERATIVE WEIGHT LOSS MANAGEMENT PROGRESS NOTE - FOLLOW UP HPI: Patient here today for 18 month post-weight loss surgery follow up @GENDER@ patient feeling well. Denies nausea, vomiting, dysphagia, or any GERD Sx. Currently is not taking a PPI. Patient states diet and exercise is going well. Currently is eating 65-75 gm/day protein, and is compliant with prescribed multivitamins and supplements. Weight trend since last visit: lost 8 lbs in 6 months. Pt doing well with diet, eating 5-6 times per day and sensible choices. Pt happy at her current wt. Labs were completed, addressed by surg team. All labs were: Social History Tobacco Use Smoking status: Former Current packs/day: 0.25 Average packs/day: 0.3 packs/day for 0.8 years (0.2 ttl pk-yrs) Types: Cigarettes Smokeless tobacco: Never Substance Use Topics Alcohol use: Not Currently Alcohol/week: 2.0 standard drinks of alcohol Types: 2 Standard drinks or equivalent per week This patient's excess weight is causing the following co-morbid conditions at this time: KARINE with or without CPAP PLAN Physical Examination: BP 138/86 Pulse 73 Ht 5' 2.5" (1.588 m) Wt 172 lb 6.4 oz (78.2 kg) BMI 31.03 kg/m? Vital signs are stable. General: This patient is awake, alert, and oriented, and is in no apparent distress. Cardiac: Regular rate and rhythm without evidence of murmur. Respiratory: Clear to auscultation bilaterally. Abdomen: Obese, soft, non-tender, non-distended without masses/ No evidence of abdominal hernia / Incisions consistent with previous surgeries. Head and Neck: Obese, normocephalic and atraumatic/soft and supple, no lymphadenopathy or obvious bruits. Extremities: No cyanosis, clubbing or edema/ No calf tenderness/No restrictions of movement, is ambulatory without assistance. Neurological: Intact x 4 extremities, no focal deficits notes. Skin: No rashes or lesions noted. Rectal: Deferred Current Diet This patient?s current diet is: none Her diet contains adequate amounts of protein, adequate amounts of healthy fats, adequate amounts of green, leafy vegetables, and adequate amounts of fruits. Her comfort foods include: none Current Activity This patient currently walking most days. Current Eating Behaviors This patients demonstrates the following behaviors as they relate to her eating:none She eats approximately 5-6 times per day. Progress Made Towards Goals: 3 month weight goal: 0 6 month weight goal: 0 12 month weight goal: 0 Plan: Diagnosis Plan 1. KARINE (obstructive sleep apnea) 2. BMI 31.0-31.9,adult 3. Obesity due to excess calories, unspecified classification, unspecified whether serious comorbidity present 4. Deficiency of multiple nutrient elements CBC auto differential Comprehensive metabolic panel Ferritin Folate Iron Magnesium Vitamin B1, whole blood ([facility]) Vitamin B12 Zinc (Sendout) Vitamin D Deficiency Screening (Vit D 25) CBC auto differential Comprehensive metabolic panel Ferritin Folate Iron Magnesium Vitamin B1, whole blood ([facility]) Vitamin B12 Zinc (Sendout) Vitamin D Deficiency Screening (Vit D 25) 5. Intestinal malabsorption, unspecified type CBC auto differential Comprehensive metabolic panel Ferritin Folate Iron Magnesium Vitamin B1, whole blood ([facility]) Vitamin B12 Zinc (Sendout) Vitamin D Deficiency Screening (Vit D 25) CBC auto differential Comprehensive metabolic panel Ferritin Folate Iron Magnesium Vitamin B1, whole blood ([facility]) Vitamin B12 Zinc (Sendout) Vitamin D Deficiency Screening (Vit D 25) 6. Screening, lipid Lipid panel Lipid panel KARINE- stable, on daily cpap, con't tx, will monitor. Malabsorption- stable, con't current supplements, repeat POP labs in 6 months. Obesity- Stable chronic, pt doing well with diet, is at goal wt. No medical concerns. F/U 6 months or sooner prn. MDM- pt's medical conditions place them at moderate risk of complications, morbidity and mortality. [x] Protein goal of 1g protein per 1 kg of ideal body weight: 80 grams [] Patient advised to maintain a food/exercise/behavior diary until next physician visit. Pt to bring the completed diary to next visit [] Lab order provided to patient for labs to be drawn for next visit Patient instructed to continue post-weight loss surgery diet recommendations. Patient instructed to continue to monitor for signs and symptoms of GERD Psych concerns : no Excessive skin concerns: no Other: Physician Diet Recommendations given to patient See Follow up Section of today's encounter for next visit and additional scheduling orders No orders of the defined types were placed in this encounter. Medications ordered during this encounter: Outpatient Encounter Medications as of 07/18/2024 Medication Sig Dispense Refill buPROPion XL (Wellbutrin XL) 150 MG 24 hr tablet 150 mg ever (more content not included)...[facility]07-15-2024 Telephone encounter Note* Telephone Encounter - Maximo Walters PA-C - 05/23/2024 10:09 AM EDT Paper labs received for 18 M visit 05/18/24 Hgb L 11.7 Ferritin L 6 Iron 58 [id number] Miscellaneous Notes* Telephone Encounter - Maximo Walters PA-C - 05/23/2024 10:09 AM EDT Paper labs received for 18 M visit 05/18/24 Hgb L 11.7 Ferritin L 6 Iron 58 documented in this encounterSFayette County Memorial [id number] Discharge summary Author Minh Mcleod [facility] February 17, 2024 2:10pm Note Date/Time February 17, 2024 2:1 1pm [facility] Physical Therapy [facility] [address] [place] [address]. [address] [place] [address] / REHABILITATION SERVICES DISCHARGE SUMMARY MR#: [id number] Acct: [id number] Name: LANA ADAME Rep #: [id number] : 1985 38 From: Minh Mcleod DPT, OCS, CSCS Referring Dr.: Dr. Patricio Moeller MD Status: REG RCR Insurance: [facility] [id number] SELF PAY INSURANCE Discharge Summary D/C summary: It has been my pleasure to treat LANA ADAME referred by Dr. Patricio Moeller MD, with the diagnosis of Upper L back pain for a total of 7 visit(s). Discharge Date: 02/17/24 Please see the following information for a summary of their discharge status. Subjective Subjective: Better. Pain is less intense and less often. Pain up to 3/10 this week intermittently and brought on with work. Sleep is not generally a problem. Activities at home are normal but worse with lifting. Work is looking down adn in one position a lot of day. Dr. Moeller is not on schedule. HEP helps to 2x10 with orange and yellow. Pain R neck.: Pain Intensity (Out of 10): 0 Overall Improvement % Improvement: 90 Objective Objective/Function: 85 rotation ROM B without pain. ext to 88 ext without pain. still slightly protracted in sitting but corrects I with VC. Goals Goal 1:: Sleep without interruption at night and wake without pain Goal Progress: Goal Met Goal 2:: Full aROM rotations and extension cervical spine without symptoms Goal Progress: Goal Met Goal 3:: Pt feel symptoms 99% better and abolish numbness Goal Progress: 90% Goal 4:: I appropriate HEP to limit future problems Goal Progress: Goal Met Plan Plan: d/c to HEP D/C Information d/c sentence: If there are questions or concerns regarding this patient's physical therapy, please feel free to call me at [phone]. Thank you for the referral of thispatient. Sincerely, Minh Mcleod, SALT, OCS, CSCS Balance/Gait/Functional tests Balance/Special Test Scores Oswestry Low Back Score: 6 Oswestry Neck Score: 7 Improvement % Improvement: 90 <Electronically signed by Minh Mcleod DPT, OCS, CSCS> 02/17/24 1410 CC: Dr. Patricio Moeller MD ~ EBG Signed [facility] Work Phone: [phone]) 900-426702-15-2024 History of Present illness Narrative* Arleth Lares LPN - 12/24/2023 8:00 AM EST [facility] PROGRESS NOTE POST WEIGHT LOSS SURGERY FOLLOW UP Patient: Lana Adame Service Date: 12/24/2023 Patient is 12 month(s) s/p Sleeve Gastrectomy Today's Metrics: Post-Surgical Weight Loss Date: 12/24/23 Height: 5' 2.5" (158.8 cm) Weight: 180 lb 6.4 oz (81.8 kg) BMI: 32.47 Weight Change: -7.4 lbs Total Weight Change: -77.4 lbs % EBWL: 55% Comments: 12M Pre-op Weight Metrics: Post-op Weight Metrics: %EBWL: % EBWL: 55% Weight Change Since Last Visit: Weight Change: -7.4 lbs Weight Change from Highest Pre-op Weight: Total Weight Change: -77.4 lbs Patient has the following questions: None Reported Pain: Patient rates pain on scale 0-10 as: 0 Exercise Compliance: Exercising: yes If yes: Type: incline walking and weights Times per week: 3 Min per session: 45 minutes Falls Risk Assessment Patient does not take medications which affect BP or mental status Patient does not have newly prescribed or changed dosage of medications within past 30 days which affect BP or mental status Patient has fallen in the past 2 months Patient does not demonstrate unsteady gait Patient uses the following ambulatory assistive devices: none Patient states the presence of the following traits which increases risk of fall: none Patient is not on home O2 Labs Completed: yes - If NO, patient instructed to get labs drawn today or REBECCA If YES: Labs completed at [facility]? no If yes see Labs Tab Labs completed at Non-[facility] facility? yes If yes see Encounters Tab - Orders only - Historical Provider - Date: 11/23/2023 in media Completed by: Arleth Lares LPN * Sarah Antoine RD - 12/24/2023 8:00 AM EST [facility] > 6 MONTH POST-OPERATIVE DIETITIAN VISIT Date: 12/24/23 Patient's weight decreased by: 77.4 lbs Patient does consume 5-6 small meals daily Patient s portions are adequate for current diet: -1 cup Protein requirements discussed- currently consuming about 65 grams protein daily. Current protein sources: chicken, turkey, protein shakes, cottage cheese, eggs, nuts, cheese Recommendations:none Fluid requirements discussed. Current Fluid Intake: 60 oz/day Patient does drink sugar-free, caffeine-free and carbonation-free fluids only. Patient does wait 30 minutes before and after meals to drink Exercise activities discussed. Patient does currently exercise. She was reminded that regular exercise is critical part of a successful outcome following weight loss surgery. (Incline walking and wt training) Behavioral/Emotional changes reviewed. Patient doesfeel comfortable with changes in eating behaviors and associated emotional changes. She was reminded that psychological counseling is available through the [facility] post-operatively. Recent Nutrient Concerns and Vitamin Supplementation Changes: Pt compliant with vitamin/mineral protocol. Labs in media; WNL. Notes/Comments: Pt doing well. Pt encouraged to call/Mychart with questions. Visit completed by: Sarah Antoine RD * Dalton Martino MD - 12/24/2023 8:00 AM EST [facility] SURGICAL [facility] Patient: Lana Adame Date of : 1985 Service Date: 12/24/2023 HPI: Patient here today for 12 month post-weight loss surgery follow up She is feeling well. Denies nausea, vomiting, dysphagia, or any GERD Sx. Currently is not on any PPI. Patient states diet and exercise is going fairly well. Currently is eating 65-75 gm/day protein, and is compliant with prescribed multivitamins and supplements. Vital signs are stable. Labs were Completed All labs were: normal Physical Examination: BP 128/87 Pulse 63 Temp 36.5 C (97.7 F) Resp 16 Ht 5' 2.5" (1.588 m) Comment: BCC HGT CHK Wt 180 lb 6.4 oz (81.8 kg) BMI 32.47 kg/m General: This patient is awake, alert, and oriented, and is in no apparent distress. Abdomen: Obese, soft, non-tender, non-distended without masses/ No evidence of abdominal hernia / Incisions consistent with previous surgeries. Extremities: No cyanosis, clubbing or edema/ No calf tenderness/No restrictions of movement, is ambulatory without assistance. Neurological: Intact x 4 extremities, no focal deficits notes. Skin: No rashes or lesions noted. Rectal: Deferred Current Medications: Patient's Medications New Prescriptions No [...] Int'l Units by mouth before bedtime. CYANOCOBALAMIN (B-12) [address] 1 tablet under the tongue 1 (one) time per week. LEVOTHYROXINE (SYNTHROID, LEVOXYL) 112 MCG TABLET Take 112 mcg by mouth daily. LURASIDONE (LATUDA) 20 MG TABLET Take 20 mg by mouth before bedtime. Take with food. MAGNESIUM 400 MG CAPSULE Take 1 capsule by mouth daily. MULTIPLE VITAMINS-IRON (MULTIVITAMIN/IRON PO) Take 1 tablet by mouth daily. OMEPRAZOLE (PRILOSEC) [address] CAPSULE Take 1 capsule (20 mg) by mouth daily. Do not crush or chew. RESPIRATORY THERAPY SUPPLIES (CARETOUCH 2 CPAP HOSE POSTAL TRANSPORTATION CLERK) MISC 11 cm. Modified Medications No medications on file Discontinued Medications No medications on file Medications ordered during this encounter: Outpatient Encounter Medications as of 12/24/2023 Medication Sig Dispense Refill buPROPion XL (Wellbutrin XL) 150 MG 24 hr tablet 150 mg every evening. 450mg total buPROPion XL (Wellbutrin XL) 300 MG 24 hr tablet 300 mg every evening. 450mg total CALCIUM CITRATE PO Take 500 mg by mouth 3 times daily. Cholecalciferol (VITAMIN D3 PO) Take 4,000 Int'l Units by mouth before bedtime. Cyanocobalamin (B-12) [address] 1 tablet under the tongue 1 (one) time per week. levothyroxine (Synthroid, Levoxyl) 112 MCG tablet Take 112 mcg by mouth daily. lurasidone (Latuda) 20 MG tablet Take 20 mg by mouth before bedtime. Take with food. Magnesium 400 MG capsule Take 1 capsule by mouth daily. Multiple Vitamins-Iron (MULTIVITAMIN/IRON PO) Take 1 tablet by mouth daily. Respiratory Therapy Supplies (CareTouch 2 CPAP Hose Seed Buyer) misc 11 cm. omeprazole (PriLOSEC) [address] capsule Take 1 capsule (20 mg) by mouth daily. Do not crush or chew.(Patient taking differently: Take 20 mg by mouth daily. Do not crush or chew.) 90 capsule 1 No facility-administered encounter medications on file as of 12/24/2023. Orders Placed This Encounter Procedures Zinc Folate Iron Ferritin Magnesium Vitamin D Deficiency Screening (Vit D 25) Vitamin B12 Vitamin B1, whole blood Lipid panel Comprehensive metabolic panel CBC Visit Diagnoses: 1. Deficiency of multiple nutrient elements 2. S/P gastric sleeve procedure 3. Class 1 obesity due to excess calories with serious comorbidity and body mass index (BMI) of 32.0 to 32.9 in adult 4. KARINE (obstructive sleep apnea) 5. Hypothyroidism, unspecified type Plan: 1). Diet and Exercise: Walking as able 2). Continue to monitor for signs and symptoms of GERD / Continue PPI 3). Labs: normal 4). Psych concerns : No 5). Excessive skin concerns: No - will discuss at 18 month visit once weight stability achieved. 6). If patient is a woman of childrearing age- 18-50. We discussed the importance of contraception during the first 12-18 months post op, and we discussed that fertility will increase following the procedure. Advised patient to discuss with her OBGYN regarding contraception. Patient counseled with good understanding verbalized. 7). Weight loss: Post-op Weight Metrics: %EBWL: % EBWL: 55% Weight Change Since Last Visit: Weight Change: -7.4 lbs Weight Change from Highest Pre-op Weight: Total Weight Change: -77.4 lbs She met with the dietitian today to review our vitamin and protein recommendations. Increase activity as recommended, the wounds are healed, no evidence of abdominal wall hernias. No nausea vomiting or dysphagia noted. Appropriate bowel function, discussed with her regarding contacting us for any questions or concerns. The lab slip was signed for the next visit, labs from 11/23/23 (media tab) werereviewed and are within normal limits. Follow-up 18 months postop. I personally performed the evaluation and management of Lana Adame in the development of a treatment plan for this patient. I personally interviewed the patient and performed an individual physicalexamination. In addition, I discussed the patient's condition and treatment options with them. I have also reviewed and agree with the past medical, family and social history unless otherwise noted. All of the patient's questions were answered. I discussed/counseled the patient regarding the postoperative care plan for this patient. The patient was seen and examined independently and relevant data reviewed by myself. A full chart review wasperformed. Patient Care Team: Patricio Moeller MD as PCP - General Dalton Martino MD as Surgeon (General Surgery) Maddie Elias (Psychiatry) documented in this [facility]09-26-2023 History of Present illness Narrative* Wilberto Morales MD - 08/04/2023 9:47 AM EDT Lana is a 37 year old who presents for an annual gynecologic exam without complaints. Menses: cycles every 28-30 days and 5 days of flow. Contraception: vasectomy HPV vaccine: No Last Pap: normal HPV: uncertain History of abnormal pap: No Last mammogram: never Sexually active: Yes OB History T2 L2 SAB0 IAB0 Ectopic0 Multiple0 Live Births2 [facility] History LMP: 07/21/2023 (Exact Date), Having periods Age at Menarche: Age at First : Age at Menopause: [facility] History Comments: Sexual Activity: Yes; Male Contraception: [...] medication updated:Yes EXAM: BP 118/76 Ht 5' 2.25" (1.58m) Wt 183 lb (83.0kg) LMP 07/21/2023 [...] external genitalia normal, normal Bartholin's glands, urethra, [place]'s glands, no vulvar lesions, no cervical lesions, [...] today Wilberto Morales MD [facility] Telephone encounter Note * Telephone Encounter - ZULMA Alegria - 07/24/2023 8:32 AM EDT Signed, thanks [facility] [id number] Miscellaneous Notes* Telephone Encounter - ZULMA Alegria - 07/24/2023 8:32 AM EDT Signed, thanks * Telephone Encounter - Kassandra Lin RD - 07/23/2023 2:51 PM EDT Spoke to patient during OV on 07/20/23 [...] to monitor. Medication list updated. Orders pending. * Telephone Encounter - Kassandra Lin RD - 07/21/2023 10:29 AM EDT DOS 12/22/2022 LSG W / HH REPAIR JZ Next OV 12/24/23 for 12M POP Labs (07/20/23) Glucose: 64 (L) Total protein: 8.6 (H) B12: >1000 (H) Vitamin D: 78 (high end of normal) B1 pending Sending Housekee[facility]art message to patient regarding labs. * Telephone Encounter - Kassandra Lin RD - 07/21/2023 10:29 AM EDT ----- Message from ZULMA Alegria sent at 07/21/2023 8:28 AM EDT ----- Sarah- please review. Thanks! Glucose low Please also advise PCP follow up for elevated total protein documented in this encounterSFayette County Memorial [id number] Telephone encounter Note* Telephone Encounter - Kassandra Lin RD - 07/23/2023 2:51 PM EDT Spoke to patient during OV on 07/20/23 [...] to monitor. Medication list updated. Orders pending. [id number] Telephone encounter Note* Telephone Encounter - Kassandra Lin RD - 07/21/2023 10:29 AM EDT DOS 12/22/2022 LSG W / HH REPAIR JZ Next OV 12/24/23 for 12M POP Labs (07/20/23) Glucose: 64 (L) Total protein: 8.6 (H) B12: >1000 (H) Vitamin D: 78 (high end of normal) B1 pending Sending MyChart message to patient regarding labs. [id number] Telephone encounter Note* Telephone Encounter - Kassandra Lin RD - 07/21/2023 10:29 AM EDT ----- Message from ZULMA Alegria sent at 07/21/2023 8:28 AM EDT ----- Sarah- please review. Thanks! Glucose low Please also advise PCP follow up for elevated total protein [id number] History of Present illness Narrative* ZULMA Alegria - 07/20/2023 2:15 PM EDT Images from the original note were not included. HPI, PHYSICAL EXAMINATION & PLAN POST-OP HPI: Patient here today for 6 month post-weight loss surgery follow up The patient is feeling well. Denies nausea, vomiting, dysphagia, or any GERD Sx. Currently is not on any PPI. Patient states diet and exercise is going well. Currently is eating 65-75 gm/day protein,and is compliant with prescribed multivitamins and supplements. [...] C (97.7 F) Resp 16 Ht 5' 3.5" (1.613 m) Wt 187 lb 12.8 oz [...] this Req. Please send results to: PATRICIO MOELLER MD - [address] [facility] [address] [facility] [address] - [phone] And if not done at a [facility], please send to: [facility] [place] - [address], [address] - [facility], [address] Patient Name: Lana Adame - 1985 Order Created by : Han Leung MA Standing Status: Future Number of Occurrences: 1 Standing Expiration Date: 07/20/2024 Folate These orders are set for an approximate date - they can be drawn up to 3 months prior to the Expected Date on this Req. Please send results to: MD Ming NEUMANN [address] [facility] [address] - [phone] And if not done at a [facility], please send to: [place] [address] Patient Name: Lana Adame - 1985 Order Created by : Han Leung MA Standing Status: Future Number of Occurrences: 1 Standing Expiration Date: 07/20/2024 Iron These orders are set for an approximate date - they can be drawn up to 3 months prior to the Expected Date on this Req. Please send results to: MD Ming NEUMANN [address] [facility] [address] - [phone] And if not done at a [facility], please send to: [place] [address] Patient Name: Lana Adame - 1985 Order Created by : Han Leung MA Standing Status: Future Number of Occurrences: 1 Standing Expiration Date: 07/20/2024 Ferritin These orders are set for an approximate date - they can be drawn up to 3 months prior to the Expected Date on this Req. Please send results to: PATRICIO MOELLER MD - [address] [place] [address] [facility] [address] - [phone] And if not done at a [facility], please send to: [place] [address] Patient Name: Lana Adame 1985 Order Created by : Han Leung MA Standing Status: Future Number of Occurrences: 1 Standing Expiration Date: 07/20/2024 Magnesium These orders are set for an approximate date - they can be drawn up to 3 months prior to the Expected Date on this Req. Please send results to: PATRICIO MOELLER MD - [address] [place] [id number] - [phone] And if not done at a [facility], please send to: [place] [address] Patient Name: Lana Adame 1985 Order Created by : Han Leung MA Standing Status: Future Number of Occurrences: 1 Standing Expiration Date: 07/20/2024 Vitamin D Deficiency Screening (Vit D 25) These orders are set for an approximate date - they can be drawn up to 3 months prior to the Expected Date on this Req. Please send results to: PATRICIO MOELLER MD - [address] [place] [id number] - [phone] And if not done at a [facility], please send to: [place] [address] Patient Name: Lana Adame - 1985 Order Created by : Han Leung MA Standing Status: Future Number of Occurrences: 1 Standing Expiration Date: 07/20/2024 Vitamin B12 These orders are set for an approximate date - they can be drawn up to 3 months prior to the Expected Date on this Req. Please send results to: PATRICIO MOELLER MD - [address] [place] [id number] - [phone] And if not done at a [facility], please send to: [address], [facility] Patient Name: Lana Adame - 1985 Order Created by : Han Leung MA Standing Status: Future Number of Occurrences: 1 Standing Expiration Date: 07/20/2024 Vitamin B1, whole blood These orders are set for an approximate date - they can be drawn up to 3 months prior to the Expected Date on this Req. Please send results to: PATRICIO MOELLER MD - [address] [facility] [address] - [phone] And if not done at a [facility], please send to: [place] [address] Patient Name: Lana Adame - 1985 Order Created by : Han Leung MA Standing Status: Future Number of Occurrences: 1 Standing Expiration Date: 07/20/2024 Lipid panel These orders are set for an approximate date - they can be drawn up to 3 months prior to the Expected Date on this Req. Please send results to: PATRICIO MOELLER MD - [address] [facility] [id number] - [phone] And if not done at a [facility] Facility, please send to: [place] [address] Patient Name: Lana Adame - 1985 Order Created by : Han Leung MA Standing Status: Future Number of Occurrences: 1 Standing Expiration Date: 07/20/2024 Comprehensive metabolic panel These orders are set for an approximate date - they can be drawn up to 3 months prior to the Expected Date on this Req. Please send results to: PATRICIO MOELLER MD - [address] [facility] [address] - [phone] And if not done at a [facility] Facility, please send to: [place] [address] Patient Name: Lana Adame - 1985 Order Created by : Han Leung MA Standing Status: Future Number of Occurrences: 1 Standing Expiration Date: 07/20/2024 CBC These orders are set for an approximate date - they can be drawn up to 3 months prior to the Expected Date on this Req. Please send results to: PATRICIO MOELLER MD - [address] [facility] [address] - [phone] And if not done at a [facility] Facility, please send to: [facility] - [address] [place] [address], [address] - [facility], [address] Patient Name: Lana Adame - 1985 Order [...] by mouth daily. Do not crush or chew.(Patient taking differently: Take 20 mg by mouth daily. Do not crush or chew.) 90 capsule 1 Respiratory Therapy Supplies (CareTouch 2 CPAP Hose Seed Buyer) misc 11 cm. [DISCONTINUED] Latuda 80 MG [...] RESPIRATORY THERAPY SUPPLIES (CARETOUCH 2 CPAP HOSE POSTAL TRANSPORTATION CLERK) MISC 11 cm. Modified Medications No medications on file Discontinued Medications LATUDA 80 MG TABLET Take 20 mg by mouth with evening meal. * Kassandra Lin RD - 07/20/2023 2:15 PM EDT [facility] > 6 MONTH POST-OPERATIVE DIETITIAN VISIT Date: 07/20/23 Patient's weight decreased by: 70 lbs Patient does consume 5-6 small meals daily Patient s portions are adequate for current diet: -1 cup Protein requirements discussed- currently consuming 50-65 grams protein daily. Current protein sources: kyrgyz yogurt, protein shake, chicken, beans, cheese Recommendations: [...] completed by: Kassandra Lin MS, RDN, LD * Han Leung MA - 07/20/2023 2:15 PM EDT [facility] PROGRESS [facility] POST WEIGHT LOSS SURGERY FOLLOW UP Patient: Lana Adame Service Date: 07/20/2023 Patient is 7 month(s) s/p Sleeve Gastrectomy Today's Metrics: Post-Surgical Weight Loss Date: 07/20/23 Height: 5' 3.5" (161.3 cm) Weight: 187 lb 12.8 oz [...] or REBECCA If YES: Labs completed at [facility]? no If yes see Labs Tab Labs completed at Non-[facility] facility? no If yes see Encounters Tab - Orders only - Historical Provider - Date: Completed by: Han Leung MA documented in this [facility]03-16-2023 History of Present illness Narrative* ZULMA Alegria - 01/22/2023 8:45 AM EDT Images from the original note were not included. [facility] Patient: Lana Adame Date of : 1985 Service Date: 01/22/23 HPI: Patient here today for 1 month post-weight loss surgery follow up She is feeling well. Denies nausea, vomiting, dysphagia, or any GERD Sx. Currently is on a PPI. Patient states diet and exercise is going fairly well. Currently is eating 65-75 gm/day protein, and iscompliant with prescribed multivitamins and supplements. Patient reports doing well. Eating 4-5 times per day. Fluid intake >64 ounces daily. Denies dysphagia. Taking supplements daily without difficulty. BM normal and every other day. Vital signs are stable. Labs were Completed. All labs were: magnesium L 1.5 Physical Examination: BP 109/76 Pulse 82 Temp 36.4 C (97.5 F) Resp 16 Ht 5' 3.5" (1.613 m) Comment: bcc Wt 239 lb [...] 20 mg every evening. RESPIRATORY THERAPY SUPPLIES (Renmatix 2 CPAP HOSE POSTAL TRANSPORTATION CLERK) MISC 11 cm. URSODIOL (ACTIGALL) 300 MG CAPSULE Take 1 capsule (300 mg) by mouth 2 times daily. Modified Medications No medications on file Discontinued Medications NYSTATIN (MYCOSTATIN) 595087 UNIT/ML SUSPENSION Swish and spit 5 mL [...] by mouth daily. Do not crush or chew.(Patient taking differently: Take 20 mg by mouth daily. Do not crush or chew.) 90 capsule 1 Respiratory Therapy Supplies (CareTouch 2 CPAP Hose Seed Buyer) misc 11 cm. ursodiol (Actigall) 300 MG capsule Take 1 capsule (300 mg) by mouth 2 times daily. 180 capsule 0 propranolol (Inderal) 20 MG tablet 20 mg every evening. [DISCONTINUED] nystatin (Mycostatin) 803471 UNIT/ML suspension Swish and spit 5 mL [...] interviewed the patient and performed an individual physicalexamination. In addition, I discussed the patient's condition and treatment options with them. I have also reviewed and agree with the past medical, family and social history unless otherwise noted. All of the patient's questions were answered. Patient Care Team: Patricio Moeller MD as PCP - General Dalton Martino MD as Surgeon (General Surgery) Maddie Elias (Psychiatry) * Alejandrina Smith - 01/22/2023 8:45 AM EDT [facility] PROGRESS NOTE POST WEIGHT LOSS SURGERY FOLLOW UP Patient: Lana Adame Service Date: 01/22/2023 Patient is 1 month(s) s/p Sleeve Gastrectomy, HH repair Today's Metrics: Post-Surgical Weight Loss Date: 01/22/23 Height: 5' 3.5" (161.3 cm) Weight: 239 lb (108 kg) [...] or REBECCA If YES: Labs completed at [facility]? yes 3/ If yes see Labs Tab Labs completed at Non-[facility] facility? N/A If yes see Encounters Tab - Orders only - Historical Provider - Date: Completed by: Alejandrina Smith * Sarah [address] RD - 01/22/2023 8:45 AM EDT [facility] 1 MONTH POST-OPERATIVE DIETITIAN VISIT Date: 01/22/23 [...] by: Sarah [address] RD documented in this [facility]03-14-2023 Telephone encounter Note* Telephone Encounter - ZULMA Alegria - 01/20/2023 6:50 AM EDT Signed, thanks [id number] Miscellaneous Notes* Telephone Encounter - ZULMA Alegria - 01/20/2023 6:50 AM EDT Signed, thanks * Telephone Encounter - Sarah [address] RD - 01/19/2023 1:18 PM EDT DOS 12/22/2022 LSG W / HH REPAIR JZ 01/15/2023 Magnesium: 1.5 (L) Please see House[employer] message between pt and this RD. Pt to begin: Magnesium 400 mg/day (OTC)- med list updated Will provide pt high mg food list at 1M POP 01/19/2023. Will monitor labs in 1 month. Order pending. Please sign. Thank you! documented in this [facility]03-13-2023 Telephone encounter Note* Telephone Encounter - Sarah [address] RD - 01/19/2023 1:18 PM EDT DOS 12/22/2022 LSG W / HH REPAIR JZ 01/15/2023 Magnesium: 1.5 (L) Please see MyChart message between pt and this RD. Pt to begin: Magnesium 400 mg/day (OTC)- med list updated Will provide pt high mg food list at 1M POP 01/19/2023. Will monitor labs in 1 month. Order pending. Please sign. Thank you! [facility] [employer] Work Phone: 1(646) 845-209503-02-2023 History of Present illness Narrative* Dalton Martino MD - 01/08/2023 7:25 AM EST Images from the original note were not included. [facility] Patient: Lana Adame Date of : 1985 Service Date: 01/08/2023 HPI: Patient here today for 1 week post-weight loss surgery follow up HPI: She is feeling well. Denies nausea, vomiting, dysphagia, or any GERD Sx. Currently is on a PPI. Patient currently walking. Instructed no lifting heavier than 15lbs until [address] to start supplements. Denies fevers/chills, CP/SOB, leg pain/swelling. Fluid intake 60-65 ounces daily. Vital signs are stable. Labs were not drawn. Physical Examination: BP 121/76 Pulse 82 Temp 36.5 C (97.7 F) Resp 16 Ht 5' 3.5" (1.613 m) Comment: BCC Wt 241 lb 12.8 oz (110 kg) SpO2 98% BMI 42.16 kg/m General: This patient is awake, alert, and oriented, and is in no apparent distress. Respiratory: Non-labored breathing Abdomen: Obese, soft, non-tender, non-distended without masses/ No evidence of abdominal hernia / Incisions consistent with previous surgeries. Extremities: No cyanosis, clubbing or edema/ No calf tenderness/No restrictions of movement, is ambulatory without assistance. Skin: No rashes or lesions noted. Surgical site: is:clean, dry, intact, and nontender Drainage from surgical site: none Patient does not have a superficial incisional SSI Plan: Orders Placed This Encounter Procedures Zinc These orders are set for an approximate date - they can be drawn up to 3 months prior to the Expected Date on this Req. Please send results to: PATRICIO MOELLER MD - [address] [facility] [address] [facility] [address] - [phone] And if not done at a [facility] Facility, please send to: [facility] [place] - [address] [place] [address], [address] - [facility], [address] Patient Name: Lana Adame - 1985 Order Created by : Arleth Lares LPN Standing Status: Future Standing Expiration Date: 01/09/2024 Folate These orders are set for an approximate date - they can be drawn up to 3 months prior to the Expected Date on this Req. Please send results to: PATRICIO MOELLER MD - [address] [facility] [address] [facility] [address] - [phone] And if not done at a [facility] Facility, please send to: [place] [address] Patient Name: Lana Adame - 1985 Order Created by : Arleth Lares LPN Standing Status: Future Standing Expiration Date: 01/09/2024 Iron These orders are set for an approximate date - they can be drawn up to 3 months prior to the Expected Date on this Req. Please send results to: PATRICIO MOELLER MD - [address] [facility] [address] [facility] [address] - [phone] And if not done at a [facility] Facility, please send to: [address], [facility] Patient Name: Lana Adame - 1985 Order Created by : Arleth Lares LPN Standing Status: Future Standing Expiration Date: 01/09/2024 Ferritin These orders are set for an approximate date - they can be drawn up to 3 months prior to the Expected Date on this Req. Please send results to: PATRICIO MOELLER MD - [address] [facility] [address] - [phone] And if not done at a [facility] Facility, please send to: [address], [address] Patient Name: Lana Adame - 1985 Order Created by : Arleth Lares LPN Standing Status: Future Standing Expiration Date: 01/09/2024 Magnesium These orders are set for an approximate date - they can be drawn up to 3 months prior to the Expected Date on this Req. Please send results to: PATRICIO MOELLER MD - [address] [facility] [address] - [phone] And if not done at a [facility] Facility, please send to: [place] [address] Patient Name: Lana Adame - 1985 Order Created by : Arleth Lares LPN Standing Status: Future Standing Expiration Date: 01/09/2024 Vitamin B12 These orders are set for an approximate date - they can be drawn up to 3 months prior to the Expected Date on this Req. Please send results to: PATRICIO MOELLER MD - [address] [facility] [address] - [phone] And if not done at a [facility] Facility, please send to: [place] [address] Patient Name: Lana Adame - 1985 Order Created by : Arleth Lares LPN Standing Status: Future Standing Expiration Date: 01/09/2024 Comprehensive metabolic panel These orders are set for an approximate date - they can be drawn up to 3 months prior to the Expected Date on this Req. Please send results to: PARTICIO MOELLER MD - [address] [facility] [address] - [phone] And if not done at a [facility] Facility, please send to: [address], [address] Patient Name: Lana Adame - 1985 Order Created by : Arleth Lares LPN Standing Status: Future Standing Expiration Date: 01/09/2024 CBC These orders are set for an approximate date - they can be drawn up to 3 months prior to the Expected Date on this Req. Please send results to: PATRICIO MOELLER MD - [address] [facility] [address] - [phone] And if not done at a [facility] Facility, please send to: [facility] - [address] [place] [address], [address] [place], [address] Patient Name: Lana Adame - 1985 Order Created by : Arleth Lares LPN Standing Status: Future Standing Expiration Date: 01/09/2024 Medications ordered during this encounter: Outpatient Encounter Medications as of 01/08/2023 Medication Sig Dispense Refill buPROPion XL (Wellbutrin [...] mouth daily. Latuda 80 MG tablet Take 80 mg by mouth with evening meal. levothyroxine (Synthroid, Levoxyl) 112 MCG tablet Take 112 mcg by mouth daily. multivitamin-children's (Flintstones) 18 MG chewable tablet Chew 1 tablet daily. omeprazole (PriLOSEC) [address] capsule Take 1 capsule (20 mg) by mouth daily. Do not crush or chew.(Patient taking differently: Take 20 mg by mouth daily. Do not crush or chew.) 90 capsule 1 Respiratory Therapy Supplies (CareTouch 2 CPAP Hose Seed Buyer) misc 11 cm. nystatin (Mycostatin) 979140 UNIT/ML suspension Swish and spit 5 mL (500,000 Units) 3 times daily. Swish and spit 5 mLs by mouth three times daily for 10 days. 150 mL 1 [] ondansetron (Zofran) 4 MG tablet Take 2 tablets (8 mg) by mouth every 8 hours as needed for nausea or vomiting for up to 7 days. 60 tablet 0 [] oxyCODONE-acetaminophen (Percocet) 5-325 MG tablet Take 1 tablet by mouth every 6 hours as needed for severe pain (7-10) for up to 5 days. 28 tablet 0 propranolol (Inderal) 20 MG tablet 20 mg every evening. ursodiol (Actigall) 300 MG capsule Take 1 capsule (300 mg) by mouth 2 times daily. (Patient not taking: Reported on 01/08/2023) 180 capsule 0 No facility-administered encounter medications on file as of 01/08/2023. 1). Oral Thrush: positive, Rx: 5ml Nystatin swish and spit every 8 hours x 10days 2). Liver Bx: Final Diagnosis A. Liver, wedge, biopsy: -Unremarkable liver parenchyma Comment: Sections demonstrate an intact liver architecture with no evidence of steatosis, ballooning degeneration, lobular activity, or Maximo's hyaline. The portal tracts contain all normal structures without any significant inflammatory infiltrate. Special stains (iron and trichrome) are negative for increased iron storage and fibrosis, respectively. B. Stomach, sleeve gastrectomy: - Gastric mucosa with no significant pathologic changes Comment: H&E stain is negative for H. pylori. No significant active inflammation present. Negative for intestinal metaplasia or malignancy. Refer to GI : No 3). Follow up at 1 month office visit with standard labs 4). Patient to see PCP for follow up regarding further management of DM and HTN medications. 5). Continue PPI until 6 month office visit 6). Advance to Pureed diet, RD discussed at office visit 7). Psych concerns: No 8). No lifting >15lbs until 1 month office visit. 9). If patient is a woman of childrearing age- 18-50. We discussed the importance of contraception during the first 12-18 months post op, and we discussed that fertility will increase following the procedure. Advised patient to discuss with her OBGYN regarding contraception. Patient counseled with good understanding verbalized. 10). Weight loss: Post-op Weight Metrics: %EBWL: % EBWL: 11% Weight Change Since Last Visit: Weight Change: -16 lbs Weight Change from Highest Pre-op Weight: Total Weight Change: -16 lbs Current Medications: Patient's Medications New Prescriptions NYSTATIN (MYCOSTATIN) 917430 UNIT/ML SUSPENSION Swish and spit 5 mL (500,000 Units) 3 times daily. Swish and spit 5 mLs by mouth three times daily for 10 days. Previous Medications BUPROPION XL (WELLBUTRIN XL) 150 [...] mouth daily. LATUDA 80 MG TABLET Take 80 mg by mouth with evening meal. LEVOTHYROXINE (SYNTHROID, LEVOXYL) 112 MCG TABLET Take 112 mcg by mouth daily. MULTIVITAMIN-CHILDREN'S (FLINTSTONES) 18 MG CHEWABLE TABLET Chew 1 tablet daily. OMEPRAZOLE (PRILOSEC) [address] CAPSULE Take 1 capsule (20 mg) by mouth daily. Do not crush or chew. PROPRANOLOL (INDERAL) 20 MG TABLET 20 mg every evening. RESPIRATORY THERAPY SUPPLIES (CARETOUCH 2 CPAP HOSE POSTAL TRANSPORTATION CLERK) MISC 11 cm. URSODIOL (ACTIGALL) 300 MG CAPSULE Take 1 capsule (300 mg) by mouth 2 times daily. Modified Medications No medications on file Discontinued Medications No medications on file She met with the dietitian today to review are vitamin and protein recommendations. Increase activity as recommended, the wounds are healed, no evidence of abdominal wall hernias. No nausea vomiting or dysphagia noted. Appropriate bowel function, discussed with her regarding contacting us for any questions or concerns. The lab slip was signed for the next visit. Follow up 1 month postop. I personally performed the evaluation and management of Lana Adame in the development of a treatment plan for this patient. I personally interviewed the patient and performed an individual physicalexamination. In addition, I discussed the patient's condition and treatment options with them. I have also reviewed and agree with the past medical, family and social history unless otherwise noted. All of the patient's questions were answered. Patient Care Team: Patricio Moeller MD as PCP - General Dalton Martino MD as Surgeon (General Surgery) Maddie Elias (Psychiatry) * Arleth Lares LPN - 01/08/2023 7:25 AM EST [facility] POST WEIGHT LOSS SURGERY FOLLOW UP - 1 WEEK Rooming Note Patient: Lana Adame Service Date: 01/08/2023 Patient is 1 week s/p Lap Sleeve Gastrectomy Pre-Surgical Weight Loss Initial Height: 5' 3.5" (161.3 cm) Initial Weight: 263 lb 3.2 oz (119 kg) Initial BMI: 45.89 [place] Body Weight: 117 lb 8 oz (53.3 kg) Surgery Date: 12/22/22 Pre-Surgical Height: 5' 3.5" (161.3 cm) Pre-Surgical Weight: 257 lb 12.8 oz (117 kg) Pre Surgery BMI: 44.95 Weight to Lose: 140 lb Post-Surgical Weight Loss Date: 01/08/23 Height: 5' 3.5" (161.3 cm) Weight: 241 lb 12.8 oz (110 kg) BMI: 42.16 Weight Change: -16 lbs Total Weight Change: -16 lbs % EBWL: 11% Comments: 1W Pain: Patient rates pain on scale 0-10 as: 0 Patient has the following questions: none Patient is not diabetic If patient IS Diabetic: Patient spoken with the physician who prescribes their diabetic medications Patient resumed their diabetic medications as directed by their physician Patient advised as follows by physician prescribing diabetic medications: Exercise Compliance: Compliance with recommended current exercise plan of walking/frequent ambulation: yes Falls Risk Assessment Patient does not take [...] increases risk of fall: none Patient is low risk for falls. If high or moderate risk, patient instructed not to ambulate independently in the Center, and cord for call light placed within reach of patient. Post-op Weight Metrics: %EBWL: % EBWL: 11% Weight Change Since Last Visit: Weight Change: -16 lbs Weight Change from Highest Pre-op Weight: Total Weight Change: -16 lbs Completed by: Arleth Lares LPN * Quyen Amador RD - 01/08/2023 7:25 AM EST [facility] 1 WEEK VISIT POST-OPERATIVE DIETITIAN Date: 01/08/23 Pt is here for 1 week office visit. Pt is currently on a full liquid diet. Pt will advance to a pureed diet today and follow a pureed diet for 10 days. Then, the pt will advance to a soft diet until their 1 month post op office visit. Both of these diets have been reviewed with the pt today. Protein requirements discussed. Patient to consume 65-75 grams daily. Fluid requirements discussed. Patient to consume 64 oz+ daily. Patient is aware that she must consume fluids 30 mintues before and after meals. Exercise activities discussed with the patient. She doeshave a plan for exercise when cleared. Patient advised that regular exercise is vital to a successful outcome following weight loss surgery. Behavioral/Emotional changes reviewed Patient does feel comfortable with changes in eating behaviors and associated emotional changes. She was reminded that psychological counseling is available through the [facility] post-operatively. The importance of vitamin supplementation has been discussed with patient. She will start the following vitamin supplements today: -Multivitamin with minerals and iron -Calcium -Vitamin B12 -Vitamin D3 -Other: Recent Nutrient Concerns and Vitamin Supplementation Changes: to start bariatric vitamin protocol Notes/Comments: doing well, to call with any questions/concerns Visit completed by: Quyen Amador RD documented in this [facility]02-14-2023 Plan of care note* Care Plan - Emily Zavaleta RN - 12/23/2022 2:01 PM EST Problem: Pain - Adult Goal: Verbalizes/displays adequate comfort level or baseline comfort level 12/23/2022 1401 by Emily Zavaleta RN Outcome: Completed 12/23/2022 1359 by Emily Zavaleta RN Outcome: Progressing Problem: Safety - Adult Goal: Free from fall injury 12/23/2022 1401 by Emily Zavaleta RN Outcome: Completed 12/23/2022 1359 by Emily Zavaleta RN Outcome: Progressing Problem: Discharge Planning Goal: Discharge to home or other facility with appropriate resources 12/23/2022 1401 by Emily Zavaleta RN Outcome: Completed 12/23/2022 1359 by Emily Zavaleta RN Outcome: Progressing Problem: Chronic Conditions and Co-morbidities Goal: Patient's chronic conditions and co-morbidity symptoms are monitored and maintained or improved 12/23/2022 1401 by Emily Zavaleta RN Outcome: Completed 12/23/2022 1359 by Emily Zavaleta RN Outcome: Progressing [id number] Miscellaneous Notes* Care Plan - Emily Zavaleta RN - 12/23/2022 2:01 PM EST Problem: Pain - Adult Goal: Verbalizes/displays adequate comfort level or baseline comfort level 12/23/2022 1401 by Emily Zavaleta RN Outcome: Completed 12/23/2022 1359 by Emily Zavaleta RN Outcome: Progressing Problem: Safety - Adult Goal: Free from fall injury 12/23/2022 1401 by Emily Zavaleta RN Outcome: Completed 12/23/2022 1359 by Emily Zavaleta RN Outcome: Progressing Problem: Discharge Planning Goal: Discharge to home or other facility with appropriate resources 12/23/2022 1401 by Emily Zavaleta RN Outcome: Completed 12/23/2022 1359 by Emily Zavaleta RN Outcome: Progressing Problem: Chronic Conditions and Co-morbidities Goal: Patient's chronic conditions and co-morbidity symptoms are monitored and maintained or improved 12/23/2022 1401 by Emily Zavaleta RN Outcome: Completed 12/23/2022 1359 by Emily Zavaleta RN Outcome: Progressing * Care Plan - Emily Zavaleta RN - 12/23/2022 1:59 PM EST Problem: Pain - Adult Goal: Verbalizes/displays adequate comfort level or baseline comfort level Outcome: Progressing Problem: Safety - Adult Goal: Free from fall injury Outcome: Progressing Problem: Discharge Planning Goal: Discharge to home or other facility with appropriate resources Outcome: Progressing Problem: Chronic Conditions and Co-morbidities Goal: Patient's chronic conditions and co-morbidity symptoms are monitored and maintained or improved Outcome: Progressing * Op Note - Dalton Martino MD - 12/22/2022 9:30 AM EST Images from the original note were not included. [facility] - Surgery [facility] Physicians Surgery Patient Name: Lana Adame OPERATIVE NOTE DATE OF PROCEDURE: 12/22/2022 SURGEON: Dalton Martino MD ECONOMICS TEACHER: Robert Apple MD PROCEDURE: LAPAROSCOPIC SLEEVE GASTRECTOMY LAPAROSCOPIC HIATAL HERNIA REPAIR. LAPAROSCOPIC LIVER BIOPSY. UPPER GI ENDOSCOPY. PREOPERATIVE DIAGNOSES: KARINE GERD Hiatal Hernia Morbid obesity. Hepatic steatosis. POSTOPERATIVE DIAGNOSES: KARINE GERD Hiatal Hernia. Morbid Obesity. Hepatic steatosis. ANESTHESIA: General. ESTIMATED BLOOD LOSS: Minimal. SPECIMEN: Liver biopsy, stomach PREOPERATIVE MEDICATIONS: Ancef, heparin. INDICATIONS FOR PROCEDURE: The patient is a 37 y.o. female with morbid obesity with a There is no height or weight on file to calculate BMI. and is now scheduled for a sleeve gastrectomy. DESCRIPTION OF PROCEDURE: The patient was brought to the operating room and placed in supine position. After initiation of general anesthesia by the Anesthesia Department, she was placed in split-leglithotomy and her arms were extended. Care was taken to pad the bony prominences. Her abdomen was prepped, and draped in a normal sterile fashion. A 5 mm trocar was placed in the left upper quadrant.We insufflated without difficulty. We placed a 5 mm trocar in the left upper quadrant, one in the right upper quadrant, one in the mid- epigastrium, one inferiorly and lateral for the initial access port. A 5 mm subxiphoid stab wound was created for retraction of the left lobe of liver using the Bhaskar liver retractor and a 12 mm stapling port was placed in the right lower quadrant. Upon evaluation of the diaphragm, there was a hiatal hernia noted. This was noted on preoperative UGI swallow dated 03/07/22. Because of the abnormal visual inspection of the diaphragm the hiatal hernia was repaired. The phrenoesophageal ligament was divided using hook electrocautery exposing the left dexter of the diaphragm. We continued our dissection along the anterior crural arch from left to right. The gastrohepatic ligament was incised using Bovie electrocautery, the peritoneum overlying thejunction of the transversely passing fat pad at the base of the right dexter was incised. We bluntly mobilized the esophagus, and reduced the GE junction into the abdomen by 5 cm. A [place] drain was used to provide appropriate retraction. The anterior and posterior vagus nerves were identified and 360 degree circumferential complete mobilization was performed. The hernia sac was from themediastinum and completely reduced. The hernia sac was dissected off the distal esophagus as well as the right and left parietal pleura completely. Hernia measured approximately 3 cm. Multiple sutures of 0 Ethibond were used to reapproximate the left and right dexter around the 50- Hungarian bougie completely reapproximating the posterior defect created by the right and left posterior crural columns. At this point, the bougie was removed, we proceeded with gastric sleeve formation. We then began by dividing the short gastric vessels. The Harmonic scalpel was used to separate the short gastric vessels beginning 2[address] the greater curvature of the stomach, we then extended cephalad to the angle of His, including dividing the first short gastric vascular pedicle. We then worked distal to approximately 4 cm from the pylorus on all the posterior attachments of the stomach were taken down sharply. At this point, a 40-Hungarian Visi-Gi bougie was placed and positioned into the antrum and suction wasapplied. Using buttress reinforcement, sequential black, green and blue staple loads were used to create a tubularization and sleeve gastrectomy along the lesser curvature using the bougie as a guide, until the sleeve gastrectomy was completed. At this point, any necessary areas on the staple line identified to be bleeding were oversewn with sutures of 3-0 Vicryl. Once this was performed, a liver biopsy was performed. Preoperative abdominal ultrasound dated 03/07/22 identified fatty infiltration. This was confirmed with intra-abdominal evaluation of the liver and visual inspection showing severe enlargement of the right and left lobe of the liver. As a result of the grossly abnormal visual inspection of the liveras well as abnormal preoperative radiographic ultrasound, liver biopsy was performed. Multiple bites of the left lobe of the liver were obtained using a laparoscopic wedge liver biopsy forceps. Tissue was sent to pathology for pathologic interpretation. Hemostasis was completed using Bovie electrocautery. After completing the sleeve gastrectomy upper GI endoscopy was performed in order to evaluate the integrity of the staple line. The Olympus gastroscope was introduced through the mouth, through the esophagus and through the gastric tubule. The scope was passed through the pylorus and into the duodenum. The scope was then withdrawn slowly and there was no evidence of narrowing at the incisura. Thegastric tubule was submerged under irrigation placed in the abdomen. There was no evidence of air extravasation on the intraoperative leak test performed. The air was evacuated and the scope removed from the patient. The gastric remnant was removed through the right lower quadrant stapling port. The 12 mm port sites were closed with multiple 0 Vicryl sutures. The skin was closed using 4-0 Monocryl. She tolerated the procedure well, was extubated and sent to the recovery room in stable condition. 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 [] Yes [x] No Was the case aborted? [] Yes [x] No Was a drain placed at the time of the initial operation? [] Yes [x] No Was a swallow study performed the day of or the day after the procedure? [x] Yes [] No Was the anastomotic/staple line checked with a provocative test to assess for leak? [x] Yes [] No Was this a stapling procedure: [x] Yes [] No Other Procedures: EGD Liver Biopsy Hiatal hernia repair documented in this [facility]02-14-2023 Plan of care note* Care Plan - Emily Zavaleta RN - 12/23/2022 1:59 PM EST Problem: Pain - Adult Goal: Verbalizes/displays adequate comfort level or baseline comfort level Outcome: Progressing Problem: Safety - Adult Goal: Free from fall injury Outcome: Progressing Problem: Discharge Planning Goal: Discharge to home or other facility with appropriate resources Outcome: Progressing Problem: Chronic Conditions and Co-morbidities Goal: Patient's chronic conditions and co-morbidity symptoms are monitored and maintained or improved Outcome: [facility]ing [id number] of Present illness Narrative* Nesha Urrutia RN - 12/23/2022 1:25 PM EST Bariatric retail asset protection specialist Note POD #1-PM Patient s/p LSG, HH repair Patient doing well. Tolerating clear liquids per protocol: yes Nausea/ Vomiting: no Dysphagia:No Vital signs stable Adequate urine output: Yes Abdomen is soft, non-distended Bowel movement: No If yes- description: Incisions well approximated, clean and dry. No redness or drainage steri-strips Patient on room air: Yes Ambulating independently: Yes Using incentive spirometer: Yes Pain is adequately controlled Current treatment: percocet Interventions: no If yes: Discharge instructions completed with patient and family member Patient is ready to be discharged: yes to home If not ready for discharge, criteria to be met: BARIATRIC SENIOR C WEB DEVELOPER DISCHARGE NOTE Verbal and written discharge instructions (including office/after hours contact numbers) reviewed with patient and spouse. Reviewed diet, activity, home meds, incision care and signs and symptoms of DVT/PE and leak. Patient and family taught regarding home Lovenox administration: not applicable. Patient understands verbal and written information given, all questions answered. Patient is and lives with and daughters. Has supportive family who will assist with dc needs at home. Patient independent with ADL s prior to admission. Patient verbalizes understanding of information provided. * Lolly Guthrie, COTTON AGENT - 12/23/2022 9:15 AM EST [facility] Respiratory Care Department Progress Note As part of the Respiratory Assessment Program (RAP), the following Respiratory Therapist evaluationhas been completed, including a chart review and [...] Respiratory in the care of this patient, * Nesha Urrutia RN - 12/23/2022 8:06 AM EST Bariatric retail asset protection specialist Note- POD#1-AM Patient S/P LSG UGI Done Extravasation: No Delayed gastric emptying: No Begin Bariatric Clear Liquid Diet per protocol: Yes Diet protocol reviewed with patient, one ounce every 30 minutes: Yes Vital signs stable. Patient has nausea/vomiting: No Voiding without difficulty Abdomen soft, non-distended Bowel sounds: hypoactive Surgical incisions clean, dry and intact: Yes steri-strips dry and intact to surgical incisions Instructed patient to ambulate in halls at least three times daily and use incentive spirometer hourly. SCDs to bilateral lower extremities on while in bed. Monitor tolerance to p.o. liquids and oral pain control Pain Control: Pain is controlled with current treatment. Oral pain medication initiated.percocet Home medications reviewed Interventions: No Plan for discharge today: Yes * Meek Licona MD - 12/23/2022 7:17 AM EST [facility] - Surgery [facility]ariat[facility] Care [facility] Patient Name: Lana Adame [facility]-General Surgery/Bariatric Progress Note Subjective: The patient is doing well, postoperative day #1 from LSG and hiatal hernia repair. No nausea, vomiting, or adverse events overnight. Pain well controlled. Scheduled Meds:buPROPion XL, 150 mg, Oral, qPM buPROPion XL, 300 mg, Oral, qPM enoxaparin, 40 mg, SubCUTAneous, BID ketorolac, 30 mg, IntraVENous, 4 times per day levothyroxine, 112 mcg, Oral, qAM AC lurasidone, 80 mg, Oral, Daily with breakfast pantoprazole, 40 mg, IntraVENous, Daily propranolol, 20 mg, Oral, qPM sodium chloride 0.9%, 10 mL, IntraVENous, 2 times per day Continuous Infusions:dextrose 5 % and sodium chloride 0.45 % with KCl 20 mEq/L, 100 mL/hr, Last Rate: 100 mL/hr (12/22/22 1629) lactated Ringer's, 50 mL/hr, Last Rate: Stopped (12/22/22 1140) PRN Meds:PRN medications: albuterol, morphine OR morphine, ondansetron ODT OR ondansetron, sodium chloride, sodium chloride 0.9% Allergies Allergen Reactions Bee Venom Anaphylaxis Other reaction(s): Hives and/or rash Objective: Patient Vitals for the past 24 hrs: BP Temp Temp src Pulse Resp SpO2 12/23/22 0531 127/65 36.2 C (97.2 F) Temporal 54 20 93 % 12/23/22 0046 134/77 37.3 C (99.1 F) Temporal 54 16 95 % 12/22/22 2117 (!) 153/81 37.3 C (99.2 F) Temporal 65 20 94 % 12/22/22 1821 -- -- -- 64 -- 98 % 12/22/22 1655 (!) 163/86 36.2 C (97.2 F) Temporal 66 16 95 % 12/22/22 1547 (!) 159/86 36.8 C (98.3 F) Temporal 66 16 98 % 12/22/22 1500 (!) 161/95 -- -- 61 16 99 % 12/22/22 1430 (!) 157/90 -- -- 60 16 100 % 12/22/22 1400 (!) 153/94 -- -- 59 17 100 % 12/22/22 1345 (!) 157/94 -- -- 62 15 100 % 12/22/22 1331 (!) 170/94 -- -- -- -- -- 12/22/22 1330 (!) 170/94 -- -- 57 15 100 % 12/22/22 1315 (!) 160/95 -- -- 54 13 100 % 12/22/22 1300 (!) 164/101 -- -- 52 13 100 % 12/22/22 1250 (!) 162/102 -- -- 55 13 -- 12/22/22 1245 -- -- -- 56 15 100 % 12/22/22 1230 (!) 166/92 -- -- 53 12 100 % 12/22/22 1215 (!) 157/85 -- -- 53 11 100 % 12/22/22 1202 (!) 147/87 36.5 C (97.7 F) -- 61 18 100 % 12/22/22 1200 (!) 147/87 36.5 C (97.7 F) -- 61 20 100 % 12/22/22 0850 129/82 36.1 C (97 F) Temporal 70 16 99 % Average, Min, and Max for last 24 hours Vitals: TEMPERATURE: Temp Av.6 C (97.9 F) Min: 36.1 C (97 F) Max: 37.3 C (99.2 F) RESPIRATIONS RANGE: Resp Av.7 Min: 11 Max: 20 PULSE RANGE: Pulse Av.2 Min: 52 Max: 70 BLOOD PRESSURE RANGE: Systolic (24hrs), Av , Min:127 , Max:170 ; Diastolic (24hrs), Av, Min:65, Max:102 PULSE OXIMETRY RANGE: SpO2 Av.5 % Min: 93 % Max: 100 % I/O last 3 completed shifts: In: 1265 [I.V.:1137.7; IV Piggyback:127.3] Out: 20 [Blood:20] CBC: Recent Labs 12/22/22 1312 HGB 14.4 HCT 44.0 BMP: Recent Labs 12/22/22 1312 12/23/22 0301 NA 137 136 K 5.1 4.5 CL 102 103 CO2 24 25 BUN 11 8 CREATININE 1.14* 1.11* GLUCOSE 171* 141* Abdomen: The abdomen was soft and appropriately tender postoperative. Nondistended. Incisions c/d/I. Assessment/Plan: Postoperative day #1, LSG GI/DVT prophylaxis, continue SQ Lovenox UGI this AM Increase activity Trial gastric bypass clear liquid diet if no signs of extravasation or leak on UGI Pulmonary toilet Initiate home medications, and oral pain control medications Plan for discharge home this afternoon if progressing appropriately Associated attestation - Dalton Martino MD - 12/23/2022 10:39 AM EST Images from the original note were not included. [facility] - Surgery Bariatric Care Center Patient Name: Lana Adame Date: 12/23/22 [facility]-General Surgery/Bariatric Progress Note Subjective: The patient is doing well, postoperative day #1 from LSG. No nausea, vomiting, or adverse events overnight. Scheduled Meds:buPROPion XL, 150 mg, Oral, qPM buPROPion XL, 300 mg, Oral, qPM enoxaparin, 40 mg, SubCUTAneous, BID famotidine, 20 mg, Oral, BID ketorolac, 30 mg, IntraVENous, 4 times per day levothyroxine, 112 mcg, Oral, qAM AC lurasidone, 80 mg, Oral, Daily with breakfast propranolol, 20 mg, Oral, qPM Continuous Infusions:dextrose 5 % and sodium chloride 0.45 % with KCl 20 mEq/L, 100 mL/hr, Last Rate: 100 mL/hr (12/22/22 1629) PRN Meds:PRN medications: morphine OR morphine, ondansetron ODT OR ondansetron, oxyCODONE-acetaminophen OR oxyCODONE-acetaminophen, sodium chloride, sodium chloride 0.9% Allergies Allergen Reactions Bee Venom Anaphylaxis Other reaction(s): Hives and/or rash Objective: Patient Vitals for the past 24 hrs: BP Temp Temp src Pulse Resp SpO2 12/23/22 0826 129/74 36.7 C (98.1 F) Temporal 60 16 96 % 12/23/22 0531 127/65 36.2 C (97.2 F) Temporal 54 20 93 % 12/23/22 0046 134/77 37.3 C (99.1 F) Temporal 54 16 95 % 12/22/22 2117 (!) 153/81 37.3 C (99.2 F) Temporal 65 20 94 % 12/22/22 1821 -- -- -- 64 -- 98 % 12/22/22 1655 (!) 163/86 36.2 C (97.2 F) Temporal 66 16 95 % 12/22/22 1547 (!) 159/86 36.8 C (98.3 F) Temporal 66 16 98 % 12/22/22 1500 (!) 161/95 -- -- 61 16 99 % 12/22/22 1430 (!) 157/90 -- -- 60 16 100 % 12/22/22 1400 (!) 153/94 -- -- 59 17 100 % 12/22/22 1345 (!) 157/94 -- -- 62 15 100 % 12/22/22 1331 (!) 170/94 -- -- -- -- -- 12/22/22 1330 (!) 170/94 -- -- 57 15 100 % 12/22/22 1315 (!) 160/95 -- -- 54 13 100 % 12/22/22 1300 (!) 164/101 -- -- 52 13 100 % 12/22/22 1250 (!) 162/102 -- -- 55 13 -- 12/22/22 1245 -- -- -- 56 15 100 % 12/22/22 1230 (!) 166/92 -- -- 53 12 100 % 12/22/22 1215 (!) 157/85 -- -- 53 11 100 % 12/22/22 1202 (!) 147/87 36.5 C (97.7 F) -- 61 18 100 % 12/22/22 1200 (!) 147/87 36.5 C (97.7 F) -- 61 20 100 % Average, Min, and Max for last 24 hours Vitals: TEMPERATURE: Temp Av.7 C (98.1 F) Min: 36.2 C (97.2 F) Max: 37.3 C (99.2 F) RESPIRATIONS RANGE: Resp Av.7 Min: 11 Max: 20 PULSE RANGE: Pulse Av.7 Min: 52 Max: 66 BLOOD PRESSURE RANGE: Systolic (24hrs), Av , Min:127 , Max:170 ; Diastolic (24hrs), Av, Min:65, Max:102 PULSE OXIMETRY RANGE: SpO2 Av.3 % Min: 93 % Max: 100 % I/O last 3 completed shifts: In: 1265 [I.V.:1137.7; IV Piggyback:127.3] Out: 20 [Blood:20] CBC: Recent Labs 12/22/22 1312 HGB 14.4 HCT 44.0 BMP: Recent Labs 12/22/22 1312 12/23/22 0301 NA 137 136 K 5.1 4.5 CL 102 103 CO2 24 25 BUN 11 8 CREATININE 1.14* 1.11* GLUCOSE 171* 141* Abdomen: Bowel sounds were normal. The abdomen was soft and appropriately tender postoperative. Nondistended. Wounds are clean dry and intact. Assessment/Plan: Postoperative day #1, LSG GI/DVT prophylaxis, continue SQ Lovenox UGI normal, no signs of extravasation or leak Increase activity Trial gastric bypass clear liquid diet Pulmonary toilet Initiate home medications, and oral pain control medications Care was discussed with the resident on service as well as the bariatric nurse lining caser. Dalton Martino MD 12/23/2022, 10:39 AM * Octaviano Elaine MD - 12/23/2022 7:16 AM EST [facility] - Surgery Bariatric Care Center Patient Name: Lana Adame Date: 12/23/22 [facility]-General Surgery/Bariatric Progress Note Subjective: The patient is doing well, postoperative day #1 from LSG with HH repair. NAEON. No nausea or vomiting. Pain well controlled. Patient is urinating and ambulating without difficulties. Scheduled Meds:buPROPion XL, 150 mg, Oral, qPM buPROPion XL, 300 mg, Oral, qPM enoxaparin, 40 mg, SubCUTAneous, BID ketorolac, 30 mg, IntraVENous, 4 times per day levothyroxine, 112 mcg, Oral, qAM AC lurasidone, 80 mg, Oral, Daily with breakfast pantoprazole, 40 mg, IntraVENous, Daily propranolol, 20 mg, Oral, qPM sodium chloride 0.9%, 10 mL, IntraVENous, 2 times per day Continuous Infusions:dextrose 5 % and sodium chloride 0.45 % with KCl 20 mEq/L, 100 mL/hr, Last Rate: 100 mL/hr (12/22/22 1629) lactated Ringer's, 50 mL/hr, Last Rate: Stopped (12/22/22 1140) PRN Meds:PRN medications: albuterol, morphine OR morphine, ondansetron ODT OR ondansetron, sodium chloride, sodium chloride 0.9% Allergies Allergen Reactions Bee Venom Anaphylaxis Other reaction(s): Hives and/or rash Objective: Patient Vitals for the past 24 hrs: BP Temp Temp src Pulse Resp SpO2 12/23/22 0531 127/65 36.2 C (97.2 F) Temporal 54 20 93 % 12/23/22 0046 134/77 37.3 C (99.1 F) Temporal 54 16 95 % 12/22/22 2117 (!) 153/81 37.3 C (99.2 F) Temporal 65 20 94 % 12/22/22 1821 -- -- -- 64 -- 98 % 12/22/22 1655 (!) 163/86 36.2 C (97.2 F) Temporal 66 16 95 % 12/22/22 1547 (!) 159/86 36.8 C (98.3 F) Temporal 66 16 98 % 12/22/22 1500 (!) 161/95 -- -- 61 16 99 % 12/22/22 1430 (!) 157/90 -- -- 60 16 100 % 12/22/22 1400 (!) 153/94 -- -- 59 17 100 % 12/22/22 1345 (!) 157/94 -- -- 62 15 100 % 12/22/22 1331 (!) 170/94 -- -- -- -- -- 12/22/22 1330 (!) 170/94 -- -- 57 15 100 % 12/22/22 1315 (!) 160/95 -- -- 54 13 100 % 12/22/22 1300 (!) 164/101 -- -- 52 13 100 % 12/22/22 1250 (!) 162/102 -- -- 55 13 -- 12/22/22 1245 -- -- -- 56 15 100 % 12/22/22 1230 (!) 166/92 -- -- 53 12 100 % 12/22/22 1215 (!) 157/85 -- -- 53 11 100 % 12/22/22 1202 (!) 147/87 36.5 C (97.7 F) -- 61 18 100 % 12/22/22 1200 (!) 147/87 36.5 C (97.7 F) -- 61 20 100 % 12/22/22 0850 129/82 36.1 C (97 F) Temporal 70 16 99 % Average, Min, and Max for last 24 hours Vitals: TEMPERATURE: Temp Av.6 C (97.9 F) Min: 36.1 C (97 F) Max: 37.3 C (99.2 F) RESPIRATIONS RANGE: Resp Av.7 Min: 11 Max: 20 PULSE RANGE: Pulse Av.2 Min: 52 Max: 70 BLOOD PRESSURE RANGE: Systolic (24hrs), Av , Min:127 , Max:170 ; Diastolic (24hrs), Av, Min:65, Max:102 PULSE OXIMETRY RANGE: SpO2 Av.5 % Min: 93 % Max: 100 % I/O last 3 completed shifts: In: 1265 [I.V.:1137.7; IV Piggyback:127.3] Out: 20 [Blood:20] CBC: Recent Labs 12/22/22 1312 HGB 14.4 HCT 44.0 BMP: Recent Labs 12/22/22 1312 12/23/22 0301 NA 137 136 K 5.1 4.5 CL 102 103 CO2 24 25 BUN 11 8 CREATININE 1.14* 1.11* GLUCOSE 171* 141* Abdomen: The abdomen was soft and appropriately tender postoperative. Nondistended. Incisions c/d/I. Assessment/Plan: Postoperative day #1, LSG with HH repair GI/DVT prophylaxis, continue SQ Lovenox UGI this AM Increase activity Trial gastric bypass clear liquid diet if no signs of extravasation or leak on UGI Pulmonary toilet Initiate home medications, and oral pain control medications Plan for discharge home this afternoon if progressing appropriately [facility] Dr. Salena Elaine MD General Surgery PGY-2 Pager # [phone] documented in this [facility]02-14-2023 History of Present illness Narrative* Charley Joseph - 12/23/2022 6:10 AM EST Preliminary negative for leak. documented in this [facility]02-13-2023 Hospital Discharge instructions* Discharge Instructions* Sarah Antoine RD - 12/22/2022 2:48 PM EST Laparoscopic Sleeve Gastrectomy Procedure Discharge Instructions Leave the steri-strips in place (white paper tape over the incisions). They may come off on their own. Do not replace them if they come off. The stitches are buried under the skin and will dissolve on their own. Use elastic binder as you desire. Take your temperature twice a day for the first postoperative week. Call if temperature is >101 F. You may shower at any point. Blot the incisions dry when you are done. Use only soap and water on the wounds. Do not use ointments, lotions, powders or antibiotic ointment. If incisions begin to look infected (redness, swelling, drainage, pain), notify your retail asset protection specialist. You may be discharged home with a drain. It will be removed at your first office visit. Daily dressing changes and twice daily emptying of the grenade is required at home. Milking or stripping the tubing should be done 2-3 times daily. You will be given the supplies needed to perform these tasks. It is also important to observe the color of the drainage in the grenade. The color will price changer time. Normal color changes include Red to Irena and Almond/Yellow to [place] and will always be clear in appearance. Abnormal color changes include a caramel color (burnett and cloudy), a brown or black appearance or a color change matching the color of what you just drank (mix up your flavors). An abnormal color change requires an immediate phone call to the Bariatric Care Center. Resume your home medications as directed by your surgeon and your nurse lining caser. Make an appointment with your prescribing physician if you are taking medication for your blood pressure or diabetes. You will need close follow-up regarding your medical conditions, as you will soon be off many of these medications. No aspirin or aspirin containing medications should be taken at all. Follow our food guidelines closely. Remember, clear liquids for the first two days after surgery. No sugar, caffeine or carbonation. Your fluid requirement is 64 oz. per day. You may advance to full liquids onpost- op day three. This is in addition to the clear liquid diet. Do not take your calcium, vitamin B12 or multivitamin with iron until after your one week appointment. No alcoholic beverages at all during the first 18 months post-op. No lifting. pushing, or pulling over 15 lbs. for one month You may go up and down stairs. No driving for 1 week after surgery. Do not drive if you are taking prescription pain medication. Walking as part of your daily activities is required immediately. Walking extensively for exercise is not permitted until you are cleared by your surgeon (usually 4-6 weeks after surgery). You will be able to begin exercising in 4-6 weeks, but must be cleared by your surgeon at your one month appointment. Use your incentive spirometer from the hospital for the first postoperative week as instructed. Useit 10 times every other hour while awake. Prior to returning to work, you will be seen, evaluated and cleared by your surgeon. Remember, you will have pain. Take your pain medicine so that you are comfortable enough to cough, deep breathe and walk. Fatigue is quite common in the first postoperative week. Rest appropriately in response to this fatigue. Remember that mobility after surgery is very important. You must not remain in a sitting or recumbent position for long periods of time. If you have obstructive sleep apnea and have been prescribed a CPAP machine, you must continue to use this device after surgery. Please call the B[facility] Care Center at [phone] if you have any questions or concerns during business hours: Thursday through Thursday 8 a.m. to 4:30 p.m. The answering service may be called during non- business hours at [phone]. Call your surgeon for problems, or if you have any of the following: Temperature >101 F. (Take your temperature twice a day in the morning and evening until your first office visit) Redness, pain, swelling or drainage from any of the incisions Inability to pass urine or have bowel movements ANY shortness of breath, chest pain, leg swelling or leg pain (in one or both of your legs) Rapid heart rate Nausea and/or vomiting with inability to keep liquids down Bleeding from your rectum Frequently feeling dizzy or light-headed, inability to walk Abnormal drain color appearance 23. If you have a medical emergency, call 911 or go to the closest hospital emergency room. 24. Your one week and one month follow-up office visits with your surgeon at the [facility] are located in the discharge folder. [facility] DIETITIAN DISCHARGE INSTRUCTIONS The following information was reviewed with the patient, and the patient was given a hard copy of these instructions by the Bariatric Registered Dietitian. Overview of Post-Op Diet Protocol for Patients Following Gastric Bypass or Sleeve Gastrectomy Your dietitian will meet with you in the hospital before you are discharged to review the diet in more details and to answer any questions you may have, Day of Surgery (after you wake up from surgery) Nothing to eat or drink Post-op Day 1 If you are having an UGI xray, you will begin your clear liquids after you are notified that the results are back and you are cleared to begin If you are NOT having an UGI xray, you will begin your clear liquids as soon as your nurse notifiesyou that it is OK to start. Post-Op Day 2 Continue your bariatric clear liquid diet Post-op Day 3 Begin full liquid diet and continue until after your 1 week post-op visit Full Liquid DietGeneral Guidelines: 1. Divide food into three (3) small meals daily (1/4 cup each) 2. Eat the food very slowly, using smaller size utensils. If you feel full, STOP eating. 3. Drink liquids 30 minutes before or 30 minutes after meals and snacks. 4. Do not use a straw. 5. Start tracking your protein intake - 65-75 grams daily is goal Foods Allowed: In addition to all foods permitted on the clear liquid diet, you may have: 1. Diluted fruit juices that are pulp-free. 2. Low-fat, strained cream soups. 3. Sugar-free strained creamed soups 4. Sugar-free pudding with protein powder 5. Sugar substitutes 6. Thin cooked cereals 7. Low-sugar yogurt without fruit 8. Skim milk or 1% milk 9. Lactaid, soy or almond milk 10. Low-fat or nonfat cottage cheese (mashed with a fork and then chewed thoroughly before swallowing) 11. Protein powder 12. High protein, low-sugar beverages and shakes (see list in Patient Education Manual) You will continue to follow the full liquid diet until after you meet with your dietitian during your 1 week post-op office visit. The next diet phases will be reviewed and discussed with your duringthat visit, If you have questions about your diet(s), please contact the Bariatric Dietitians at [phone]. Reviewed by Sarah Antoine MS, RD, CSSD, LD documented in this [facility]02-13-2023 Attending History and physical note* Dalton Martino MD - 12/22/2022 9:30 AM EST Images from the original note were not included. [facility] - Surgery [facility] Physicians Surgery Patient Name: Lana Adame Date: [...] proceed with the procedure. MO Plan LSG Source Note - ZULMA Nogueira - 12/15/2022 9:00 AM EST Images from the original note were not included. Comprehensive PreSurgical History and Physical Name: Lana Adame : 1985 (Age-37 y.o.) Date of Service: Pt seen/examined on 12/15/2022 Procedure Information Date/Time: 02/13/23 0930 Procedures: LAPAROSCOPY SLEEVE GASTRECTOMY WITH LIVER WEDGE BIOPSY WITH HIATAL HERNIA REPAIR, POSSIBLE OPEN (Abdomen) - 180 MINUTES TOTAL UNLISTED LAPAROSCOPIC PROCEDURE LIVER (Abdomen) LAPAROSCOPY REPAIR PARAESOPHAGEAL HERNIA INCLUDING FUNDOPLASTY (Abdomen) Location: [facility] OR Operating Room Surgeons: Dalton Martino MD Chief Complaint: Morbid (severe) obesity due to excess calories (HCC) [E66.01] Diaphragmatic hernia without obstruction or gangrene [K44.9] History Of Present Illness: 37 y.o. female who we are asked to see/evaluate by Dr. Martino for pre- operative evaluation prior to SX 12/22/22. ? Patient proceeding with the above procedure for weight loss and to reduce associated comorbidities. Patient denies exertional chest pain/shortness of breath. Denies dizziness, syncope, lightheadedness. Denies fever, chills, weakness or fatigue. Patient denies any recent wounds. Patient denies abdominal pain, nausea, vomiting, diarrhea, or constipation. Patient denies hx of CAD, CHF, MA, TIA/CVA, diabetes, COPD, asthma, DVT/PE. +sore throat [...] Respiratory Therapy Supplies (CareTouch 2 CPAP Hose Seed Buyer) misc 11 cm. omeprazole (PriLOSEC) [address] capsule Take 1 capsule (20 mg) by mouth daily. Do not crush or chew.90 capsule 1 ursodiol (Actigall) 300 MG capsule [...] Vitals Value Taken Time BP 134/74 12/15/22 0902 Temp 36.1 C (96.9 F) 12/15/22 0902 Pulse 78 12/15/22 0902 Resp 16 12/15/22 0902 SpO2 94 % 12/15/22 0902 Labs: Lab Results Component Value Date WBC 8.3 12/04/2022 HGB 13.3 12/04/2022 HCT 38.8 12/04/2022 MCV 90.2 12/04/2022 PLT 296 12/04/2022 Lab Results Component Value Date NA 139 12/04/2022 K 4.2 12/04/2022 CL 105 12/04/2022 CO2 25 12/04/2022 BUN 13 12/04/2022 CREATININE 1.02 12/04/2022 GLUCOSE 120 (H) 12/04/2022 CALCIUM 9.1 12/04/2022 EGFR 72.8 12/04/2022 Rohan's Simple Cardiac Risk Index: ROHAN'S SIMPLE CARDIAC RISK SCORE: 0 Interpretation: 0 Points Class I 0.5% 1 Point Class II 1.3% 2 Points Class III 3.6% 3+ Points Class IV 9.1% METS > 4 PAT Pain Score: Pain Score: 3 Postop Pain Management Plan (Pain consult ordered?): Pain consult not indicated at this time ? EK12/04/22 ECHO and EF:None on file No components found for: LVEF, LVEFMODE 12/04/22 CXR Results ASSESSMENT/PLAN: Patient is considered low/intermediate risk for this intermediate risk procedure/surgery (SX 12/22/22) with no reducible risk factors. Based on the above evaluation, the benefits of the planned procedure likely exceed the risks. The patient is medically optimized to proceed with the planned procedure without any further cardiopulmonary testing. 1) Morbid obesity - Managed per surgery - Body mass index is 43.27 kg/m . - 12/04/22 EKG, CXR, A1c, albumin, BMP, CBC reviewed - Clearances per Dr. Martino 12/04/22 office visit attached below 2) Seizures, remote - Reports history of 3 seizures in , feels it was related to stress - Was seen by Dr. Perez with [facility] after final episode, no treatment indicated - No episodes since that time 3) KARINE - Compliant with CPAP 4) Hypothyroidism - Managed on Synthroid - Follows OP with PCP 5) HTN - Patient denies - Well controlled - Managed on propranolol BP Readings from Last 3 Encounters: 12/15/22 134/74 12/04/22 115/80 05/23/22 116/81 6) Depression - Managed on Wellbutrin, Latuda Visit Type: Pre-Admission Testing Visit Labs Ordered: NO - COMPLETE PRIOR TO PAT VISIT Sleep Referral Ordered: NO - ALREADY DIAGNOSED WITH KARINE AND COMPLIANT WITH CPAP Electronically signed by: ZULMA Nogueira Date: 12/15/2022 at 9:35 AM PAT Protocol referenced includes: 1. Anesthesia Lab Protocol Orders 2. Perioperative Cardiovascular Risk Assessment 3. Anesthesia Assessment 4. Pain Assessment and Acute Pain Service Consult (if appropriate) 5. Medical Clearance/Consult from Internal Medicine (IMS) 6. Shower/Wash Order (for designated surgeries) 7. KARINE Screen and Sleep Clinic Referral (if appropriate) [id number] History and physical note* Dalton Martino MD - 12/22/2022 9:30 AM EST Images from the original note were not included. [facility] - Surgery [facility] Physicians Surgery Patient Name: Lana Adame Date: [...] proceed with the procedure. MO Plan LSG Source Note - ZULMA Nogueira - 12/15/2022 9:00 AM EST Images from the original note were not included. Comprehensive PreSurgical History and Physical Name: Lana Adame : 1985 (Age-37 y.o.) Date of Service: Pt seen/examined on 12/15/2022 Procedure Information Date/Time: 12/22/22929 Procedures: LAPAROSCOPY SLEEVE GASTRECTOMY WITH LIVER WEDGE BIOPSY WITH HIATAL HERNIA REPAIR, POSSIBLE OPEN (Abdomen) - 180 MINUTES TOTAL UNLISTED LAPAROSCOPIC PROCEDURE LIVER (Abdomen) LAPAROSCOPY REPAIR PARAESOPHAGEAL HERNIA INCLUDING FUNDOPLASTY (Abdomen) Location: [place] [address] Operating Room Surgeons: Dalton Martino MD Chief Complaint: Morbid (severe) obesity due to excess calories (HCC) [E66.01] Diaphragmatic hernia without obstruction or gangrene [K44.9] History Of Present Illness: 37 y.o. female who we are asked to see/evaluate by Dr. Martino for pre- operative evaluation prior to SX 12/22/22. ? Patient proceeding with the above procedure for weight loss and to reduce associated comorbidities. Patient denies exertional chest pain/shortness of breath. Denies dizziness, syncope, lightheadedness. Denies fever, chills, weakness or fatigue. Patient denies any recent wounds. Patient denies abdominal pain, nausea, vomiting, diarrhea, or constipation. Patient denies hx of CAD, CHF, MA, TIA/CVA, diabetes, COPD, asthma, DVT/PE. +sore throat [...] Respiratory Therapy Supplies (CareTouch 2 CPAP Hose Seed Buyer) misc 11 cm. omeprazole (PriLOSEC) [address] capsule Take 1 capsule (20 mg) by mouth daily. Do not crush or chew.90 capsule 1 ursodiol (Actigall) 300 MG capsule [...] Vitals Value Taken Time BP 134/74 12/15/22 0902 Temp 36.1 C (96.9 F) 12/15/22 0902 Pulse 78 12/15/22 0902 Resp 16 12/15/22 0902 SpO2 94 % 12/15/22 0902 Labs: Lab Results Component Value Date WBC 8.3 12/04/2022 HGB 13.3 12/04/2022 HCT 38.8 12/04/2022 MCV 90.2 12/04/2022 PLT 296 12/04/2022 Lab Results Component Value Date NA 139 12/04/2022 K 4.2 12/04/2022 CL 105 12/04/2022 CO2 25 12/04/2022 BUN 13 12/04/2022 CREATININE 1.02 12/04/2022 GLUCOSE 120 (H) 12/04/2022 CALCIUM 9.1 12/04/2022 EGFR 72.8 12/04/2022 Rohan's Simple Cardiac Risk Index: ROHAN'S SIMPLE CARDIAC RISK SCORE: 0 Interpretation: 0 Points Class I 0.5% 1 Point Class II 1.3% 2 Points Class III 3.6% 3+ Points Class IV 9.1% METS > 4 PAT Pain Score: Pain Score: 3 Postop Pain Management Plan (Pain consult ordered?): Pain consult not indicated at this time ? EK12/04/22 ECHO and EF:None on file No components found for: LVEF, LVEFMODE 12/04/22 CXR Results ASSESSMENT/PLAN: Patient is considered low/intermediate risk for this intermediate risk procedure/surgery (SX 12/22/22) with no reducible risk factors. Based on the above evaluation, the benefits of the planned procedure likely exceed the risks. The patient is medically optimized to proceed with the planned procedure without any further cardiopulmonary testing. 1) Morbid obesity - Managed per surgery - Body mass index is 43.27 kg/m . - 12/04/22 EKG, CXR, A1c, albumin, BMP, CBC reviewed - Clearances per Dr. Martino 12/04/22 office visit attached below 2) Seizures, remote - Reports history of 3 seizures in , feels it was related to stress - Was seen by Dr. Perez with [facility] after final episode, no treatment indicated - No episodes since that time 3) KARINE - Compliant with CPAP 4) Hypothyroidism - Managed on Synthroid - Follows OP with PCP 5) HTN - Patient denies - Well controlled - Managed on propranolol BP Readings from Last 3 Encounters: 12/15/22 134/74 12/04/22 115/80 05/23/22 116/81 6) Depression - Managed on Wellbutrin, Latuda Visit Type: Pre-Admission Testing Visit Labs Ordered: NO - COMPLETE PRIOR TO PAT VISIT Sleep Referral Ordered: NO - ALREADY DIAGNOSED WITH KARINE AND COMPLIANT WITH CPAP Electronically signed by: ZULMA Nogueira Date: 12/15/2022 at 9:35 AM PAT Protocol referenced includes: 1. Anesthesia Lab Protocol Orders 2. Perioperative Cardiovascular Risk Assessment 3. Anesthesia Assessment 4. Pain Assessment and Acute Pain Service Consult (if appropriate) 5. Medical Clearance/Consult from Internal Medicine (IMS) 6. Shower/Wash Order (for designated surgeries) 7. KARINE Screen and Sleep Clinic Referral (if appropriate) documented in this [facility]02-13-2023 Note* Op Note - Dalton Martino MD - 12/22/2022 9:30 AM EST Images from the original note were not included. [facility] - Surgery [facility] Physicians Surgery Patient Name: Lana Adame OPERATIVE NOTE DATE OF PROCEDURE: 12/22/2022 SURGEON: Dalton Martino MD ECONOMICS TEACHER: Robert Apple MD PROCEDURE: LAPAROSCOPIC SLEEVE GASTRECTOMY LAPAROSCOPIC HIATAL HERNIA REPAIR. LAPAROSCOPIC LIVER BIOPSY. UPPER GI ENDOSCOPY. PREOPERATIVE DIAGNOSES: KARINE GERD Hiatal Hernia Morbid obesity. Hepatic steatosis. POSTOPERATIVE DIAGNOSES: KARINE GERD Hiatal Hernia. Morbid Obesity. Hepatic steatosis. ANESTHESIA: General. ESTIMATED BLOOD LOSS: Minimal. SPECIMEN: Liver biopsy, stomach PREOPERATIVE MEDICATIONS: Ancef, heparin. INDICATIONS FOR PROCEDURE: The patient is a 37 y.o. female with morbid obesity with a There is no height or weight on file to calculate BMI. and is now scheduled for a sleeve gastrectomy. DESCRIPTION OF PROCEDURE: The patient was brought to the operating room and placed in supine position. After initiation of general anesthesia by the Anesthesia Department, she was placed in split-leglithotomy and her arms were extended. Care was taken to pad the bony prominences. Her abdomen was prepped, and draped in a normal sterile fashion. A 5 mm trocar was placed in the left upper quadrant.We insufflated without difficulty. We placed a 5 mm trocar in the left upper quadrant, one in the right upper quadrant, one in the mid- epigastrium, one inferiorly and lateral for the initial access port. A 5 mm subxiphoid stab wound was created for retraction of the left lobe of liver using the Bhaskar liver retractor and a 12 mm stapling port was placed in the right lower quadrant. Upon evaluation of the diaphragm, there was a hiatal hernia noted. This was noted on preoperative UGI swallow dated 03/07/22. Because of the abnormal visual inspection of the diaphragm the hiatal hernia was repaired. The phrenoesophageal ligament was divided using hook electrocautery exposing the left dexter of the diaphragm. We continued our dissection along the anterior crural arch from left to right. The gastrohepatic ligament was incised using Bovie electrocautery, the peritoneum overlying thejunction of the transversely passing fat pad at the base of the right dexter was incised. We bluntly mobilized the esophagus, and reduced the GE junction into the abdomen by 5 cm. A Melissa drain was used to provide appropriate retraction. The anterior and posterior vagus nerves were identified and 360 degree circumferential complete mobilization was performed. The hernia sac was from themediastinum and completely reduced. The hernia sac was dissected off the distal esophagus as well as the right and left parietal pleura completely. Hernia measured approximately 3 cm. Multiple sutures of 0 Ethibond were used to reapproximate the left and right dexter around the 50- Hungarian bougie completely reapproximating the posterior defect created by the right and left posterior crural columns. At this point, the bougie was removed, we proceeded with gastric sleeve formation. We then began by dividing the short gastric vessels. The Harmonic scalpel was used to separate the short gastric vessels beginning 2/[address] the greater curvature of the stomach, we then extended cephalad to the angle of His, including dividing the first short gastric vascular pedicle. We then worked distal to approximately 4 cm from the pylorus on all the posterior attachments of the stomach were taken down sharply. At this point, a 40-Hungarian Visi-Gi bougie was placed and positioned into the antrum and suction wasapplied. Using buttress reinforcement, sequential black, green and blue staple loads were used to create a tubularization and sleeve gastrectomy along the lesser curvature using the bougie as a guide, until the sleeve gastrectomy was completed. At this point, any necessary areas on the staple line identified to be bleeding were oversewn with sutures of 3-0 Vicryl. Once this was performed, a liver biopsy was performed. Preoperative abdominal ultrasound dated 03/07/22 identified fatty infiltration. This was confirmed with intra-abdominal evaluation of the liver and visual inspection showing severe enlargement of the right and left lobe of the liver. As a result of the grossly abnormal visual inspection of the liveras well as abnormal preoperative radiographic ultrasound, liver biopsy was performed. Multiple bites of the left lobe of the liver were obtained using a laparoscopic wedge liver biopsy forceps. Tissue was sent to pathology for pathologic interpretation. Hemostasis was completed using Bovie electrocautery. After completing the sleeve gastrectomy upper GI endoscopy was performed in order to evaluate the integrity of the staple line. The Olympus gastroscope was introduced through the mouth, through the esophagus and through the gastric tubule. The scope was passed through the pylorus and into the duodenum. The scope was then withdrawn slowly and there was no evidence of narrowing at the incisura. Thegastric tubule was submerged under irrigation placed in the abdomen. There was no evidence of air extravasation on the intraoperative leak test performed. The air was evacuated and the scope removed from the patient. The gastric remnant was removed through the right lower quadrant stapling port. The 12 mm port sites were closed with multiple 0 Vicryl sutures. The skin was closed using 4-0 Monocryl. She tolerated the procedure well, was extubated and sent to the recovery room in stable condition. 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 [] Yes [x] No Was the case aborted? [] Yes [x] No Was a drain placed at the time of the initial operation? [] Yes [x] No Was a swallow study performed the day of or the day after the procedure? [x] Yes [] No Was the anastomotic/staple line checked with a provocative test to assess for leak? [x] Yes [] No Was this a stapling procedure: [x] Yes [] No Other Procedures: EGD Liver Biopsy Hiatal hernia repair [id number]* Op Note - Dalton Martino MD - 12/22/2022 9:30 AM EST Images from the original note were not included. [facility] - Surgery [facility] Physicians Surgery Patient Name: Lana Adame OPERATIVE NOTE DATE OF PROCEDURE: 12/22/2022 SURGEON: Dalton Martino MD ECONOMICS TEACHER: Robert Apple MD PROCEDURE: LAPAROSCOPIC SLEEVE GASTRECTOMY LAPAROSCOPIC HIATAL HERNIA REPAIR. LAPAROSCOPIC LIVER BIOPSY. UPPER GI ENDOSCOPY. PREOPERATIVE DIAGNOSES: KARINE GERD Hiatal Hernia Morbid obesity. Hepatic steatosis. POSTOPERATIVE DIAGNOSES: KARINE GERD Hiatal Hernia. Morbid Obesity. Hepatic steatosis. ANESTHESIA: General. ESTIMATED BLOOD LOSS: Minimal. SPECIMEN: Liver biopsy, stomach PREOPERATIVE MEDICATIONS: Ancef, heparin. INDICATIONS FOR PROCEDURE: The patient is a 37 y.o. female with morbid obesity with a There is no height or weight on file to calculate BMI. and is now scheduled for a sleeve gastrectomy. DESCRIPTION OF PROCEDURE: The patient was brought to the operating room and placed in supine position. After initiation of general anesthesia by the Anesthesia Department, she was placed in split-leglithotomy and her arms were extended. Care was taken to pad the bony prominences. Her abdomen was prepped, and draped in a normal sterile fashion. A 5 mm trocar was placed in the left upper quadrant.We insufflated without difficulty. We placed a 5 mm trocar in the left upper quadrant, one in the right upper quadrant, one in the mid- epigastrium, one inferiorly and lateral for the initial access port. A 5 mm subxiphoid stab wound was created for retraction of the left lobe of liver using the Bhaskar liver retractor and a 12 mm stapling port was placed in the right lower quadrant. Upon evaluation of the diaphragm, there was a hiatal hernia noted. This was noted on preoperative UGI swallow dated 03/07/22. Because of the abnormal visual inspection of the diaphragm the hiatal hernia was repaired. The phrenoesophageal ligament was divided using hook electrocautery exposing the left dexter of the diaphragm. We continued our dissection along the anterior crural arch from left to right. The gastrohepatic ligament was incised using Bovie electrocautery, the peritoneum overlying thejunction of the transversely passing fat pad at the base of the right dexter was incised. We bluntly mobilized the esophagus, and reduced the GE junction into the abdomen by 5 cm. A Melissa drain was used to provide appropriate retraction. The anterior and posterior vagus nerves were identified and 360 degree circumferential complete mobilization was performed. The hernia sac was from themediastinum and completely reduced. The hernia sac was dissected off the distal esophagus as well as the right and left parietal pleura completely. Hernia measured approximately 3 cm. Multiple sutures of 0 Ethibond were used to reapproximate the left and right dexter around the 50- Hungarian bougie completely reapproximating the posterior defect created by the right and left posterior crural columns. At this point, the bougie was removed, we proceeded with gastric sleeve formation. We then began by dividing the short gastric vessels. The Harmonic scalpel was used to separate the short gastric vessels beginning 2/[address] down the greater curvature of the stomach, we then extended cephalad to the angle of His, including dividing the first short gastric vascular pedicle. We then worked distal to approximately 4 cm from the pylorus on all the posterior attachments of the stomach were taken down sharply. At this point, a 40-Hungarian Visi-Gi bougie was placed and positioned into the antrum and suction wasapplied. Using buttress reinforcement, sequential black, green and blue staple loads were used to create a tubularization and sleeve gastrectomy along the lesser curvature using the bougie as a guide, until the sleeve gastrectomy was completed. At this point, any necessary areas on the staple line identified to be bleeding were oversewn with sutures of 3-0 Vicryl. Once this was performed, a liver biopsy was performed. Preoperative abdominal ultrasound dated 03/07/22 identified fatty infiltration. This was confirmed with intra-abdominal evaluation of the liver and visual inspection showing severe enlargement of the right and left lobe of the liver. As a result of the grossly abnormal visual inspection of the liveras well as abnormal preoperative radiographic ultrasound, liver biopsy was performed. Multiple bites of the left lobe of the liver were obtained using a laparoscopic wedge liver biopsy forceps. Tissue was sent to pathology for pathologic interpretation. Hemostasis was completed using Bovie electrocautery. After completing the sleeve gastrectomy upper GI endoscopy was performed in order to evaluate the integrity of the staple line. The Olympus gastroscope was introduced through the mouth, through the esophagus and through the gastric tubule. The scope was passed through the pylorus and into the duodenum. The scope was then withdrawn slowly and there was no evidence of narrowing at the incisura. Thegastric tubule was submerged under irrigation placed in the abdomen. There was no evidence of air extravasation on the intraoperative leak test performed. The air was evacuated and the scope removed from the patient. The gastric remnant was removed through the right lower quadrant stapling port. The 12 mm port sites were closed with multiple 0 Vicryl sutures. The skin was closed using 4-0 Monocryl. She tolerated the procedure well, was extubated and sent to the recovery room in stable condition. 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 [] Yes [x] No Was the case aborted? [] Yes [x] No Was a drain placed at the time of the initial operation? [] Yes [x] No Was a swallow study performed the day of or the day after the procedure? [x] Yes [] No Was the anastomotic/staple line checked with a provocative test to assess for leak? [x] Yes [] No Was this a stapling procedure: [x] Yes [] No Other Procedures: EGD Liver Biopsy Hiatal hernia repair [id number] Telephone encounter Note* Telephone Encounter - ZULMA Alegria - 12/05/2022 3:37 PM EST Noted and agree, thanks [id number] Miscellaneous Notes* Telephone Encounter - ZULMA Alegria - 12/05/2022 3:37 PM EST Noted and agree, thanks * Telephone Encounter - Jenna Arroyo RN - 12/02/2022 3:06 PM EST No lovenox DVT Ppx [x] DVT prophylaxis per final preop visit estimated risk Estimated calculated risk: 0.16 % COMPLETE FILE TO FINANCIAL 09/16/22 SURGICAL AUTHORIZATION: SUBMIT ION DATE: APPROVAL DATE: DVT PPX Risk Factors [] Male [] Age >= 60 years [] BMI >= 50 kg/m^2 [] CHF [] Dyspnea at Rest [] Paraplegia [x] Non-Gastric Band Surgery [] Anticipate Operative Time > 3 hours [] Anticipate Length of Stay >3 days Automatic 4 Weeks of Therapy [] Congenital or Acquired Hypercoagulable Conditions (Factor V Leiden, Prothrombin) [] Past History of DVT or PE [] Significant Chronic Venous Insufficiency Calculated Risk Score: The predicted probability of thirty-day post-discharge VTE 0.16 % Risk % Weeks </> BMI 50 SQ Dose [x] Moderate <0.4% 0 None [] High Risk 0.4% - 1% 2 [] 40 mg Lovenox BID [] 60 mg Lovenox BID documented in this [facility]01-26-[facility] History of Present illness Narrative* Dalton Martino MD - 12/04/2022 8:15 AM EST [facility] SURGICAL WEIGHT LOSS MANAGEMENT PROGRAM PROGRESS NOTE - REVIEW TESTING Patient History/Assessment Summary: The patient is a 37 y.o. year old female with morbid obesity, who stands Height: 5' 3.5" (161.3 cm)tall with a weight of Weight: 268 lb (122 kg) , resulting in a BMI of Body mass index is 46.73 kg/m.. The patient is scheduled to undergo weight loss surgery to treat the following comorbid conditions caused by her morbid obesity: GERD, HTN, and KARINE with or without CPAP She attended the weight loss surgery seminar prior to their initial surgical evaluation, and attended pre-op virtual education class. The patient is scheduled for Laparoscopic Sleeve Gastrectomy, Laparoscopic Liver Biopsy, and Laparoscopic Hiatal Hernia on 12/22/22. She is here today to review the details of surgery prior to their date of surgery: The patient acknowledges and understands the risks, benefits, and options we have discussed, as outlined in the Additional Informed Consent for this procedure. Patient also understands the importanceof pre and post-operative recommendations, including the preop diet and regular post-operative follow up care. The importance of ambulation and incentive spirometry was also discussed. All questions of this patient and any family members present have been answered to their satisfaction. Physical Examination: BP 115/80 Pulse 67 Temp 36.4 C (97.5 F) Resp 18 Ht 5' 3.5" (1.613 m) Wt 268 lb (122 kg) BMI 46.73 kg/m General: This patient is awake, alert, and oriented, and is in no apparent distress. Abdomen: Obese, soft, non-tender, non-distended without masses/ No evidence of abdominal hernia. Noprior abdominal surgery and no scars are noted. Head and Neck: Obese, normocephalic and atraumatic/soft and supple Extremities: No cyanosis, clubbing or edema/ No calf tenderness/No restrictions of movement, is ambulatory without assistance. Neurological: Intact x 4 extremities, no focal deficits notes. Skin: No rashes or lesions noted Surgical History: Past Surgical History: Procedure Laterality Date UPPER GASTROINTESTINAL ENDOSCOPY 06/10/2022 Recommendations: We spent a great deal of time discussing the risks and benefits of Laparoscopic Sleeve Gastrectomy,Laparoscopic Liver Biopsy, and Laparoscopic Hiatal Hernia, including but not limited to injury to intra-abdominal organs, breakdown of the gastric staple line, the need for re-operative therapy, prolonged hospitalization, mechanical ventilation, and . We discussed the possibility of bleeding, the need for blood transfusions, blood clots, hospital-acquired and intra-abdominal infection, anastomotic stricture, and worsening GERD. And we discussed the need for post-operative visit compliance,behavior modifications and diet changes, protein and vitamin supplementation, as well as routine valeria eduled and dedicated exercise. We discussed the potential weight loss benefit to approximately 60-70% of her excess body weight at 12-18 months post-op, as well as the possibility of insufficient weight loss or weight gain after 2 years post-operative time. Upon completion of all required pre-operative testing we will submit for insurance pre-authorization. The following data was reviewed and the results discussed with the patient: PATIENT SUMMARY Lana Martino 36 y.o. female with Body mass index is 45.89 kg/m . Laparoscopic Sleeve Gastrectomy,Laparoscopic Liver Biopsy and Laparoscopic Hiatal Hernia Procedure DM[] HTN[] KARINE[x] GERD[x] HL[] OA[] TOB[] Date of Surgery: DOS 12/22/2022 LSG W / HH REPAIR JZ NOTES PCP: Kevin Moeller INITIAL TESTING RESULTS Labwork [x] CMP, TSH, Fasting Lipid Profile, Mg, Zinc, Vit B1 (whole blood), Vit B12, 25-OH Vit D, Fe, Ferritin, Folate 03/26/22 TSH OK Tobacco [] Serum Nicotine / Cotinine [] Negative [] Positive EGD [x] Dx: [x] GERD [] Dyspepsia [] Other 06/10/22 -gastritis Pathology [x] H. pylori [x] Negative [] Positive UGI [x] [] not ordered Small HH US Abdomen [x] [] not ordered 04/02/22 GB WNL KARINE eval [] [x] On CPAP / Obtain settings 11 CM H20 Hematology [] [] Hypercoagulation panel Toxicology [] [] Urine drug screen [] EtOH screen Addtional [x] [x] Hgb A1c 03/26/22 5.1 INITIAL CONSULTATIONS CLEARANCE / MANAGEMENT Psychology [x] Dr. Villa Cleared 08/29/2022 Dietitian [x] Sarah Antoine, MS, RD, CSSD, LD Cleared 03/12/2022 Cardiology [x] Dr. ARTURO [facility] CLEARED 08/15/22 WILL BE SCANNED TO MEDIA Pulmonary [x] Dr. Moeller PCP CLEARED 09/15/22 WILL BE SCANNED TO MEDIA Others [] []Heme/Onc []Psychiatry []Pain mgmt PSD [x] Physician supervised diet: []None []3 mos [x]6 mos Preop diet [x] Preop low calory diet: []None [x]1 wk []2 wks []Ext. FINAL PRE-OP TESTING RESULTS Labwork [x] [x]Pre-op CBC [x]BMP []Serum Nicotine / Cotinine EKG [x] CXR [x] POST-OP MEDICATIONS Ulcer Ppx [x] Omeprazole 20 mg PO []QD []BID Gallstone Ppx [x] Ursodiol 300 mg [x]BID DVT Ppx [x] DVT prophylaxis per final preop visit estimated risk Estimated calculated risk: 0.16 % COMPLETE FILE TO FINANCIAL 09/16/22 SURGICAL AUTHORIZATION: SUBMIT ION DATE: APPROVAL DATE: DVT PPX Risk Factors [] Male [] Age >= 60 years [] BMI >= 50 kg/m^2 [] CHF [] Dyspnea at Rest [] Paraplegia [x] Non-Gastric Band Surgery [] Anticipate Operative Time > 3 hours [] Anticipate Length of Stay >3 days Automatic 4 Weeks of Therapy [] Congenital or Acquired Hypercoagulable Conditions (Factor V Leiden, Prothrombin) [] Past History of DVT or PE [] Significant Chronic Venous Insufficiency Calculated Risk Score: The predicted probability of thirty-day post-discharge VTE 0.16 % Risk % Weeks </> BMI 50 SQ Dose [x] Moderate <0.4% 0 None [] High Risk 0.4% - 1% 2 [] 40 mg Lovenox BID [] 60 mg Lovenox BID DVT Prophylaxis- see above, Lovenox not indicated Prescriptions were provided for Actigall post-operatively Prescriptions were provided for Gastric Ulcer Prophylaxis post-operatively. H. Pylori: negative, HH noted on UGI, none noted on EGD- will repair if clinically relevant and noted on diaphragmatic evaluation at the time of surgery U/S of Abdomen: negative for cholelithiasis Cardiology Clearance: Yes Pulmonary Clearance: Yes Pre op Diet Requirement: 2 weeks- start on 12/07/22 I personally performed the evaluation and management of Lana Adame in the development of a treatment plan for this patient. I personally interviewed the patient and performed an individual physicalexamination. In addition, I discussed the patient's condition and treatment options with them. I have also reviewed and agree with the past medical, family and social history unless otherwise noted. All of the patient's questions were answered. If patient is a woman of childrearing age- 18-50. We discussed the importance of contraception during the first 12-18 months post op, and we discussed that fertility will increase following the procedure. Advised patient to discuss with her OBGYN regarding contraception. Patient counseled with goodunderstanding verbalized. I discussed/counseled the patient regarding the risks and benefits of surgery as well as the preoperative and postoperative care plan for this patient. The patient was seen and examined independentlyand relevant data reviewed by myself. A full chart review was performed. Patient Care Team: Patricio Moeller MD as PCP - General Dalton Martino MD as Surgeon (General Surgery) Maddie Elias (Psychiatry) * Hafsa Harvey - 12/04/2022 8:15 AM EST [facility] SURGICAL WEIGHT LOSS MANAGEMENT PROGRAM Rooming note: FINAL PRE-OP VISIT Patient: Lana Adame Date of : 1985 Service Date: 12/04/2022 This patient is accompanied by SELF for the evaluation today Patient is here today for their final pre-operative visit with surgeon prior to undergoing surgicalweight loss intervention. Patient has the following question(s): none Weight Metrics: Measurements Weight: 268 lb (122 kg) Height: 5' 3.5" (161.3 cm) BMI (Calculated): 46.8 Preop Weight: 268 lb (122 kg) Percent Excess Weight Loss: 0 Percent Total Weight Change Percent: 0 Percent Weight Change Since Preop (kg): 0 kg Initial Excess Weight (kg): 68.24 kg IBW in kg (Bariatric): 53.3 kg IBW in lb (Bariatric): 117.5 lb Weight Change Since Last Visit: 121.56 kg Percent of IBW: 228.09 Percent EBW (kg): 68.24 kg EBW (lb): 150.5 lb Today's weight has increased from the last visit Falls Risk Assessment Patient does not take medications which affect BP or mental status Patient does not have newly prescribed or changed dosage of medications within past 30 days which affect BP or mental status Patient has not fallen in the past 2 months Patient does not demonstrate unsteady gait Patient uses the following ambulatory assistive devices: NONE Patient states the presence of the following traits which increases risk of fall: N/A Patient is low risk for falls. If high or moderate risk, patient instructed not to ambulate independently in the Center, and cord for call light placed within reach of patient. Patient has not had a time when it was difficult for an IV to be placed. Patient is not on home O2 Patient has not has a time when it was difficult to intubate them Patient does have a CPAP/BiPAP machine. If patient DOES have CPAP/BiPAP: [XX] CPAP [] BiPAP Settings are 11 cm H2O PAP and settings are entered into the Medication List Completed by: Hafsa Harvey documented in this [facility]01-24-2023 Telephone encounter Note* Telephone Encounter - Jenna Arroyo RN - 12/02/2022 3:06 PM EST No lovenox DVT Ppx [x] DVT prophylaxis per final preop visit estimated risk Estimated calculated risk: 0.16 % COMPLETE FILE TO FINANCIAL 09/16/22 SURGICAL AUTHORIZATION: SUBMIT ION DATE: APPROVAL DATE: DVT PPX Risk Factors [] Male [] Age >= 60 years [] BMI >= 50 kg/m^2 [] CHF [] Dyspnea at Rest [] Paraplegia [x] Non-Gastric Band Surgery [] Anticipate Operative Time > 3 hours [] Anticipate Length of Stay >3 days Automatic 4 Weeks of Therapy [] Congenital or Acquired Hypercoagulable Conditions (Factor V Leiden, Prothrombin) [] Past History of DVT or PE [] Significant Chronic Venous Insufficiency Calculated Risk Score: The predicted probability of thirty-day post-discharge VTE 0.16 % Risk % Weeks </> BMI 50 SQ Dose [x] Moderate <0.4% 0 None [] High Risk 0.4% - 1% 2 [] 40 mg Lovenox BID [] 60 mg Lovenox BID [facility]08-02-2022 Hospital Discharge instructions* Discharge Instructions* Chiara Jalloh RN - 06/10/2022 8:12 AM [...] mild sore throat. You may use an [id number] chloraseptic spray, gargle with warm salt water, [...] a good idea to start with light mealsand ease into solid foods the first day. [...] TO NEAREST EMERGENCY DEPARTMENT [facility] this [facility] Work Phone: Consult note Author Orlando Leiva [facility] Note Date/Time February 01, 2025 1:[facility] [address] [place] [address] Anesthesia Postop Eval I 02/01/25 1340 MR#: [id number] Acct: [id number] Name: LANA ADAME Rep #:[id number] : 1985 39 From: Orlando Leiva PCP: Dr. Patricio Moeller MD Status:REG S DC Y Race: C Location: [place] [address] Anesthesia: Postop Eval I Current Vital Signs Temperature: 97.9 F Pulse Rate: 60 Blood Pressure: 91/49 Respiratory Rate: 12 Pulse Ox: 98 Oxygen Delivery Method: Room Air Assessment Airway patent: Yes Spontaneous unlabored respirations: Yes Mental status: Asleep nausea: No Vomiting: No Anesthesia Complication: No Fluid Hydration Crystalloid volume administer (ml): 40 Total IV fluid infused: 40 Progress Note Anesthesia document: Postop Eval 1 completed: Yes 02/01/25 1341 <Electronically signed by Orlando Leiva > Date _ Orlando Spears Signature: Date CC: ~ Signed [facility] Work Phone: Evaluation noteNo assessment information available [facility] Work Phone: evaluation note* Diagnosis Generalized abdominal pain Abdominal pain, generalized documented in this encounter [facility] Work Phone: evaluation note* Diagnosis Gastroesophageal reflux disease without esophagitis- Primary Esophageal reflux Chronic superficial gastritis without bleeding Atrophic gastritis without mention of hemorrhage Morbid obesity due to excess calories (HCC) documented in this encounter [facility] Work Phone: Evaluation note* Diagnosis Onset Date Resolution Status Encounter for pre-operative cardiovascular clearance acute [facility] Work Phone: evaluation note* Diagnosis Morbid obesity due to excess calories (HCC)- Primary Pre-operative laboratory examination Pre-procedural laboratory examination Morbid (severe) obesity due to excess calories (HCC)- Primary Encounter for preprocedural laboratory examination Morbid obesity due to excess calories (HCC) Pre-operative laboratory examination Pre-procedural laboratory examination documented in this encounter [facility] [employer] note* Diagnosis KARINE (obstructive sleep apnea)- Primary Obstructive sleep apnea (adult) (pediatric) Deficiency of multiple nutrient elements Other nutritional deficiency Morbid obesity with BMI of 40.0-44.9, adult (HCC) Encounter for postoperative care GERD without esophagitis Esophageal reflux documented in this encounter [facility] [employer] note* Diagnosis Deficiency of multiple nutrient elements- Primary Other nutritional deficiency Class 1 obesity due to excess calories with serious comorbidity and body mass index (BMI) of 32.0 to 32.9 in adult KARINE (obstructive sleep apnea) Obstructive sleep apnea (adult) (pediatric) documented in this encounter [facility] [employer] note* Diagnosis High vitamin D level- Primary Hypervitaminosis D Low glucose level High serum vitamin B12 Elevated total protein Other nonspecific findings on examination of blood documented in this encounter [facility] [employer] note* Diagnosis Encounter for gynecological examination (general) (routine) without abnormal findings- Primary Screening for cervical cancer Screening for malignant neoplasm of the cervix Encounter for screening for human papillomavirus (HPV) Special screening examination for human papillomavirus (HPV) [facility] Diagnosis Deficiency of multiple nutrient elements Other nutritional deficiency S/P gastric sleeve procedure Class 1 obesity due to excess calories with serious comorbidity and body mass index (BMI) of 32.0 to 32.9 in adult KARINE (obstructive sleep apnea) Obstructive sleep apnea (adult) (pediatric) Hypothyroidism, unspecified type [facility]* Diagnosis KARINE (obstructive sleep apnea)- Primary Obstructive sleep apnea (adult) (pediatric) BMI 31.0-31.9,adult Obesity due to excess calories, unspecified classification, unspecified whether serious comorbidity present Deficiency of multiple nutrient elements Other nutritional deficiency Intestinal malabsorption, unspecified type Screening, lipid [facility]* Diagnosis Encounter for gynecological examination (general) (routine) without abnormal findings- Primary Need for influenza vaccination Need for prophylactic vaccination and inoculation against influenza [facility]* Diagnosis Low magnesium level- Primary [facility]* Diagnosis Encounter for postoperative care- Primary Hypothyroidism, unspecified type KARINE (obstructive sleep apnea) Obstructive sleep apnea (adult) (pediatric) Deficiency of multiple nutrient elements Other nutritional deficiency Morbid obesity with BMI of 40.0-44.9, adult ([facility]) [facility]* Diagnosis Hypothyroidism, unspecified type- Primary Gastroesophageal reflux disease without esophagitis Esophageal reflux Back pain, unspecified back location, unspecified back pain laterality, unspecified chronicity Morbid obesity with BMI of 45.0-49.9, adult ([facility]) ([facility]) Hiatal hernia Diaphragmatic hernia without mention of obstruction or gangrene KARINE (obstructive sleep apnea) Obstructive sleep apnea (adult) (pediatric) Morbid (severe) obesity due to excess calories (HCC) Diaphragmatic hernia without obstruction or gangrene Diaphragmatic hernia without mention of obstruction or gangrene documented in this encounter [facility] note* Diagnosis Morbid obesity due to excess calories (HCC) Pre-operative laboratory examination Pre-procedural laboratory examination Morbid (severe) obesity due to excess calories (HCC) Diaphragmatic hernia without obstruction or gangrene Diaphragmatic hernia without mention of obstruction or gangrene [facility]* Diagnosis Morbid obesity with BMI of 45.0-49.9, adult ([facility]) (HCC)- Primary Morbid obesity with body mass index (BMI) of 40.0 to 49.9 (HCC) Morbid (severe) obesity due to excess calories (HCC) Diaphragmatic hernia without obstruction or gangrene Diaphragmatic hernia without mention of obstruction or gangrene Gastroesophageal reflux disease without esophagitis Esophageal reflux KARINE (obstructive sleep apnea) Obstructive sleep apnea (adult) (pediatric) Hiatal hernia Diaphragmatic hernia without mention of obstruction or gangrene Hepatic steatosis Other chronic nonalcoholic liver disease documented [facility]* Diagnosis Morbid obesity with body mass index (BMI) of 40.0 to 49.9 ([facility])- Primary Morbid (severe) obesity due to excess calories (HCC) Diaphragmatic hernia without obstruction or gangrene Diaphragmatic hernia without mention of obstruction or gangrene documented [facility]* Diagnosis KARINE (obstructive sleep apnea)- Primary Obstructive sleep apnea (adult) (pediatric) Deficiency of multiple nutrient elements Other nutritional deficiency Morbid obesity with BMI of 40.0-44.9, adult ([facility]) Encounter for postoperative care GERD without esophagitis Esophageal reflux [facility]* Diagnosis KARINE (obstructive sleep apnea)- Primary Obstructive sleep apnea (adult) (pediatric) BMI 30.0-30.9,adult Obesity due to excess calories, unspecified class, unspecified whether serious comorbidity present Intestinal malabsorption, unspecified type documented in this encounter [facility] note* Diagnosis Anemia, unspecified type- Primary History of sleeve gastrectomy [facility]* Diagnosis Iron deficiency anemia secondary to inadequate dietary iron intake- Primary History of sleeve gastrectomy Impaired intestinal absorption ([facility]) Unspecified intestinal malabsorption [facility] Author Shon Rivera [facility] Note Date/Time February 01, 2025 12: 56pm [facility] Medical Records Department [address] [place] [id number] History & Physical Exam 02/01/25 1254 MR#: [id number] Acct: [id number] Name: LANA ADAME Rep #:[id number] : 1985 39 From: Shon Rivera DO PCP: Dr. Patricio Moeller MD Status:[facility] [place] Location: [place] [address] HPI - General General Date of Admission: 02/01/25 Date of Service: 02/01/25 Chief Complaint: lower GI bleeding HPI Narrative LANA ADAME, is a 39 F who presents Chief Complaint: rectal pain Details: LANA ADAME, is a 39 F who presents to the office today for OV 12/07/2024 39y/o female presents for consultation with complaints of rectal pressure/tenesmus immediately post BM. She denies any change in bowel habits, weight loss, pain or bleeding. DRT revealed internal hemorrhoid at 3 o'clock and6 o'clock with mild discomfort at 3 o'clock. I have prescribed anusol supp. x7 days. She will follow-up in one month. Patient Instructions: Anusol supp x7 days at HS F/U one month, if symptoms are persisting will schedule colonoscopy with banding - 1 BM daily, denies any straining - denies any bleeding - denies any abdominal pain - denies any family h/o colon CA - stools are soft formed - no improvement with Anusol suppositories PFS Medical History Depression Anxiety Alcohol use Anemia Back pain Migraine headache Non-smoker CPAP (continuous positive airway pressure) dependence Shortness of breath on exertion History of echocardiogram Seizures Cardiology follow-up encounter Polycystic ovary Hormone deficiency Rectal discomfort Constipation Hepatic steatosis Obesity, morbid, BMI 40.0-49.9 Hypothyroidism Normal spontaneous vaginal delivery Home Medications ?Medication ?Instructions ?Recorded ?Last Taken ?Type bupropion HCl 300 mg 24 hr tablet, 300 mg PO DAILY Unknown History extended release lurasidone 80 mg tablet (Latuda) 20 mg PO DAILY Unknown History clonazepam 0.5 mg tablet 0.5 mg PO BID 12/07/24 Unkno wn History levothyroxine 112 mcg tablet 100 mcg PO DAILY 12/07/24 02/01/25 04:00 History Diltiazem 2% / Lidocaine 5% #30 grams 01/04/25 Unknown Rx ointment (compound) ondansetron 4 mg disintegrating 4 mg PO Q4H PRN nausea and vomiting 01/30/25 Unknown History tablet Allergy/AdvReac Type Severity Reaction Status Date / Time bee venom protein (honey bee) AdvReac Severe Anaphylaxis Verified 02/01/25 11:39 Family History Father Hypertension Obesity Mother Hypertension Obesity Grandfather Colon cancer Uncle Colon cancer Surgical History H/O hernia repair H/O gastric sleeve Social History household members: spouse Smoking Status: Former smoker how long ago did patient quit smoking: quit 20 years ago alcohol intake: current substance use type: does not use what type of physical activity do you participate in: walking frequency: 1-2 times per week additional social history: pt denies vaping, denies edibles, denies marijuana uses aspirin and ibuprofen as needed ROS Constitutional Constitutional: Denies fatigue, fever(s), poor appetite, weight gain or weight loss Gastrointestinal Gastrointestinal: Denies belching, bloating, change in bowel habits, change in stool character, chewing difficulty, coffee ground emesis, constipation, cramping, diarrhea, dyspepsia, dysphagia, early satiety, excessive flatus, fecalincontinence, heartburn, hematemesis, hematochezia, hemorrhoids, loose stools, melena, nausea, odynophagia, rectal bleeding, tenesmus, vomiting or weight changes Vital Signs Vital Signs Vital Signs: 02/01/25 11:40 02/01/25 11:40 Temperature 98.1 F Temperature Source Temporal Pulse Rate 56 L Respiratory Rate 16 Respiratory Pattern Normal Blood Pressure 119/83 H Blood Pressure Mean 95 Blood Pressure Source Monitor Blood Pressure Position Semi-Fowlers Blood Pressure Location Right Arm Pulse Ox 100 Oxygen Delivery Method Room Air Weight Weight: 160 lb 14.999 oz Body Mass Index (BMI) 29.4 Physical Exam Const alert, oriented x3, no apparent distress and healthy appearing General Appearance: cooperative GI normal to inspection, nondistended, normoactive bowel sounds, soft to palpation,non-tender and non-distended Percussion: normal to percussion Rectal Exam: deferred Results Lab / Micro Data Labs: Laboratory Results - last 24 hr 02/01/25 11:25: Urine Test Negative Assessment & Plan Assessment/Plan (1) Tenesmus (rectal): (2) Rectal bleeding: PLAN: Assessment and Plan Assessment and Plan (1) Tenesmus (rectal): Status: Acute (2) Hemorrhoid: Status: Acute Medications: New Diltiazem 2% / Lidocaine 5% ointment (compound) insert a pea sized amount into the rectum BID PRN pain 30 grams 0RF Plan 39y/o female presents for follow-up of rectal pain and hemorrhoids. She denies any improvement with Anusol suppositories. She denies any bleeding, change in bowel habits or bleeding. She will schedule colonoscopy with banding and trail diltiazem/lidocaine compound in the interim. Plan Details 02/01/25 1256 <Electronically signed by Shon Rivera DO> Cosigner Signature (if applicable): CC: Dr. Patricio Moeller MD; Shon Rivera, ~ Signed [facility] Work Phone: Hospital Discharge instructions Additional Instructions Other than mild anemia your labs are normal. Rest and drink plenty of fluids. Follow-up with your doctor as needed.[facility] Work Phone: Reason for referral (narrative)No reason for referral information availableW[facility] Work Phone: Summary Purpose Family History No Family History Records Found Relationship Condition Age at Onset Recorded Date/T ferdinand father Hypertension Unknown Obesity Unknown mother Hypertension Unknown Relationship Condition Age at Onset Recorded Date/T ferdinand father Hypertension Unknown Obesity Unknown mother Hypertension Unknown grandfather Malignant neoplasm of colon Unknown uncle Malignant neoplasm of colon Unknown Advance Directives No Advanced Directives Records Found Advance Directive Response Recorded Date/ Time Living Will No September 20, 016 3:27am Power of Offset Platemaker No September 20, 2016 3:27am Latest Code Status on File Code Status Date Activated Date Inactivated Comments Full Code 06/10/2022 7:07 AM Latest Code Status on File Code Status Date Activated Date Inactivated Comments Full Code 06/10/2022 7:07 AM 06/10/2022 11:08 AM Advance Directive Response Recorded Date/ Time Living Will No September 20, 2 016 2:27am Power of Offset Platemaker No September 20, 2016 2:27am Latest Code Status on File Code Status Date Activated Date Inactivated Comments Full Code 12/22/2022 4:05 PM 12/23/2022 6:43 PM Code Status History Code Status Date Activated Date Inactivated Comments Full Code 12/22/2022 8:46 AM 12/22/2022 4:05 PM Date Activated Date Inactivated Comments 12/22/2022 4:05 PM 12/23/2022 6:43 PM Date Activated Date Inactivated Comments 12/22/2022 8:46 AM 12/22/2022 4:05 PM Latest Code Status on File Code Status Date Activated Date Inactivated Comments Full Code 12/22/2022 4:05 PM 12/23/2022 6:43 PM Code Status History Code Status Date Activated Date Inactivated Comments Full Code 12/22/2022 8:46 AM 12/22/2022 4:05 PM Advance Directive Response Recorded Date/ Time Living Will No January 30, 2025 11:46am Do you have a Healthcare Power of Offset Platemaker? No January 30, 2025 11:46am Advance Directive Response Recorded Date/ Time Do you have a Healthcare Power of Offset Platemaker? No March 18, 2025 1:01pm Living Will No January 30, 2025 11:46am Do you have a Healthcare Power of Offset Platemaker? No January 30, 2025 11:46am Reason for Referral Specialty Diagnoses / Procedures Referred By Natail t Referred To Contact Radiology Diagnoses Generalized abdominal pain Procedures US ABDOMEN COMPLETE Maximo Waltres PA [address] [place] [address] Referral ID Status Reason Start Date Expiration Date Visits Re quested Visits Authorized [id number] Open 03/07/2022 03/07/2023 1 1 Chief Complaint and Reason for Visit Chief Complaint CARDIAC CLEARANCE (B ARIATRIC)/ OKAY PER PK DYSPNEA Reason for Visit Encounter for pre-op erative cardiovascular clearance Chief Complaint UPPER L BACK PAIN RX HERE Chief Complaint Admit Date FASTING November 28, 2024 9 :23am Constipation December 07, 2024 8 :42am 1 M FU January 04, 2025 1:51pm Abdominoplasty January 25, 2025 1:4 4pm SORE THROAT January 30, 2025 6:1 9am Reason for Visit Admit Date Hemorrhoid December 07, 2024 8 :42am Tenesmus (rectal) December 07, 2024 8 :42am Hemorrhoid January 04, 2025 1:51pm Tenesmus (rectal) January 04, 2025 1:51pm Atrophic skin January 25, 2025 1:4 4pm Encounter for cosmetic surgery January 1:44pm Localized adiposity of abdomen January 1:44pm Rectal bleeding February 01, 2025 11: 16am Tenesmus (rectal) February 01, 2025 11: 16am Chief Complaint Admit Date FASTING November 28, 2024 9 :23am Constipation December 07, 2024 8 :42am 1 M FU January 04, 2025 1:51pm Abdominoplasty January 25, 2025 1:4 4pm SORE THROAT January 30, 2025 6:1 9am pre op #1 abdominoplasty February 08, 2025 2:03pm Reason for Visit Admit Date Hemorrhoid December 07, 2024 8 :42am Tenesmus (rectal) December 07, 2024 8 :42am Hemorrhoid January 04, 2025 1:51pm Tenesmus (rectal) January 04, 2025 1:51pm Atrophic skin January 25, 2025 1:4 4pm Encounter for cosmetic surgery January 1:44pm Localized adiposity of abdomen January 1:44pm Rectal bleeding February 01, 2025 11: 16am Tenesmus (rectal) February 01, 2025 11: 16am Atrophic skin February 08, 2025 2:03 pm Encounter for cosmetic surgery February 2:03pm Localized adiposity of abdomen February 2:03pm Chief Complaint Admit Date FASTING November 28, 2024 9 :23am Constipation December 07, 2024 8 :42am 1 M FU January 04, 2025 1:51pm Abdominoplasty January 25, 2025 1:4 4pm SORE THROAT January 30, 2025 6:1 9am pre op #1 abdominoplasty February 08, 2025 2:03pm PREOP February 22, 2025 8:1 9am pre op #2 abdominoplasty February 22 1:08pm Reason for Visit Admit Date Hemorrhoid December 07, 2024 8 :42am Tenesmus (rectal) December 07, 2024 8 :42am Hemorrhoid January 04, 2025 1:51pm Tenesmus (rectal) January 04, 2025 1:51pm Atrophic skin January 25, 2025 1:4 4pm Encounter for cosmetic surgery January 1:44pm Localized adiposity of abdomen January 1:44pm Rectal bleeding February 01, 2025 11: 16am Tenesmus (rectal) February 01, 2025 11: 16am Atrophic skin February 08, 2025 2:03 pm Encounter for cosmetic surgery February 2:03pm Localized adiposity of abdomen February 2:03pm Atrophic skin February 22, 2025 1:0 8pm Encounter for cosmetic surgery February 1:08pm Localized adiposity of abdomen February 1:08pm Chief Complaint Admit Date FASTING November 28, 2024 9 :23am Constipation December 07, 2024 8 :42am 1 M FU January 04, 2025 1:51pm Abdominoplasty January 25, 2025 1:4 4pm SORE THROAT January 30, 2025 6:1 9am pre op #1 abdominoplasty February 08, 2025 2:03pm PREOP February 22, 2025 8:1 9am pre op #2 abdominoplasty February 22 1:08pm EORDER- CBC ONLY March 07, 2025 7:2 9am Amb Documentation March 09, 2025 4:25pm Anemia March 15, 2025 3:40pm DIZZINESS March 18, 2025 12:26 pm Reason for Visit Admit Date Hemorrhoid December 07, 2024 8 :42am Tenesmus (rectal) December 07, 2024 8 :42am Hemorrhoid January 04, 2025 1:51pm Tenesmus (rectal) January 04, 2025 1:51pm Atrophic skin January 25, 2025 1:4 4pm Encounter for cosmetic surgery January 1:44pm Localized adiposity of abdomen January 1:44pm Rectal bleeding February 01, 2025 11: 16am Tenesmus (rectal) February 01, 2025 11: 16am Atrophic skin February 08, 2025 2:03 pm Encounter for cosmetic surgery February 2:03pm Localized adiposity of abdomen February 2:03pm Atrophic skin February 22, 2025 1:0 8pm Encounter for cosmetic surgery February 1:08pm Localized adiposity of abdomen February 1:08pm Iron deficiency anemia refractory to iro n therapy March 15, 2025 3:40pm Iron deficiency anemia following bariatr ic surgery March 15, 2025 3:40pm Anemia March 15, 2025 3:40pm Chief Complaint Admit Date FASTING November 28, 2024 9 :23am Constipation December 07, 2024 8 :42am 1 M FU January 04, 2025 1:51pm Abdominoplasty January 25, 2025 1:4 4pm SORE THROAT January 30, 2025 6:1 9am pre op #1 abdominoplasty February 08, 2025 2:03pm PREOP February 22, 2025 8:1 9am pre op #2 abdominoplasty February 22 1:08pm EORDER- CBC ONLY March 07, 2025 7:2 9am Amb Documentation March 09, 2025 4:25pm Anemia March 15, 2025 3:40pm DIZZINESS March 18, 2025 12:26 pm CONCERN FOR UTI March 20, 2025 3:40p m Chief Complaint Admit Date Abdominoplasty January 25, 2025 1:4 4pm SORE THROAT January 30, 2025 6:1 9am pre op #1 abdominoplasty February 08, 2025 2:03pm PREOP February 22, 2025 8:1 9am pre op #2 abdominoplasty February 22 1:08pm EORDER- CBC ONLY March 07, 2025 7:2 9am Amb Documentation March 09, 2025 4:25pm Anemia March 15, 2025 3:40pm DIZZINESS March 18, 2025 12:26 pm CONCERN FOR UTI March 20, 2025 3:40p m 8 WEEK LABS April 13, 2025 11:00 am 2 DRS/ 2ORDERS- EORDERS May 7:32am 8 WEEK LABS May 24, 2025 3:03 pm Reason for Visit Admit Date Atrophic skin January 25, 2025 1:4 4pm Encounter for cosmetic surgery January 1:44pm Localized adiposity of abdomen January 1:44pm Rectal bleeding February 01, 2025 11: 16am Tenesmus (rectal) February 01, 2025 11: 16am Atrophic skin February 08, 2025 2:03 pm Encounter for cosmetic surgery February 2:03pm Localized adiposity of abdomen February 2:03pm Atrophic skin February 22, 2025 1:0 8pm Encounter for cosmetic surgery February 1:08pm Localized adiposity of abdomen February 1:08pm Iron deficiency anemia following bariatr ic surgery March 15, 2025 3:40pm Iron deficiency anemia refractory to iro n therapy March 15, 2025 3:40pm Anemia March 15, 2025 3:40pm Iron deficiency anemia following bariatr ic surgery May 24, 2025 3:03pm Iron deficiency anemia refractory to iro n therapy May 24, 2025 3:03pm Anemia May 24, 2025 3:03 pm Chief Complaint Admit Date SORE THROAT January 30, 2025 6:1 9am pre op #1 abdominoplasty February 08, 2025 2:03pm PREOP February 22, 2025 8:1 9am pre op #2 abdominoplasty February 22 1:08pm EORDER- CBC ONLY March 07, 2025 7:2 9am Amb Documentation March 09, 2025 4:25pm Anemia March 15, 2025 3:40pm DIZZINESS March 18, 2025 12:26 pm CONCERN FOR UTI March 20, 2025 3:40p m 8 WEEK LABS April 13, 2025 11:00 am 2 DRS/ 2ORDERS- EORDERS May 7:32am 8 WEEK LABS May 24, 2025 3:03 pm Reason for Visit Admit Date Rectal bleeding February 01, 2025 11: 16am Tenesmus (rectal) February 01, 2025 11: 16am Atrophic skin February 08, 2025 2:03 pm Encounter for cosmetic surgery February 2:03pm Localized adiposity of abdomen February 2:03pm Atrophic skin February 22, 2025 1:0 8pm Encounter for cosmetic surgery February 1:08pm Localized adiposity of abdomen February 1:08pm Iron deficiency anemia following bariatr ic surgery March 15, 2025 3:40pm Iron deficiency anemia refractory to iro n therapy March 15, 2025 3:40pm Anemia March 15, 2025 3:40pm Iron deficiency anemia following bariatr ic surgery May 24, 2025 3:03pm Iron deficiency anemia refractory to iro n therapy May 24, 2025 3:03pm Anemia May 24, 2025 3:03 pm Additional Source Comments INFORMATION SOURCE (unrecogn ized section and content) DATE CREATED AUTHOR 11/27/2020 [facility] DATE CREATED AUTHOR AUTHOR'S ORGANIZ ATION 08/20/2022 [facility] DATE CREATED AUTHOR AUTHOR'S ORGANIZ ATION 01/18/2025 [facility] DATE CREATED AUTHOR AUTHOR'S ORGANIZ ATION 08/18/2025 [facility] DATE CREATED AUTHOR AUTHOR'S ORGANIZ ATION 09/21/2025 [facility] DATE CREATED AUTHOR AUTHOR'S ORGANIZ ATION 09/21/2025 [facility] Goals (unrecognized section and content) Goals may be documented in a n alternate sectionGoals may be documented in an alternate sectionGoals may be documented in an alternate sectionGoals may be documented in an alternate sectionGoals may be documented in an alternate sectionGoals may be documented in an alternate sectionGoals may be documented in an alternate sectionGoals may be documented in an alternate section Care Teams (unrecognized sec tion and content) Data Systems Analyst Relationship Specialty Start Date End Date Patricio Moeller MD [address] [facility] [address] [place] [address] PCP - General Family Medicine 02/24/22 Data Systems Analyst Relationship Specialty Start Date End Date Patricio oMeller MD [address] [facility] [address] [place] [address] PCP - General Family Medicine 02/24/22 Data Systems Analyst Relationship Specialty Start Date End Date Patricio Moeller MD [address] [facility] [address] [place] [address] PCP - General Family Medicine 02/24/22 Data Systems Analyst Relationship Specialty Start Date End Date Patricio Moeller MD [address] [facility] [address] [place] [address] PCP - General Family Medicine 02/24/22 Data Systems Analyst Relationship Specialty Start Date End Date Patricio Moeller MD [address] [place] [address] PCP - General 02/24/22 Dalton Martino MD [address] [facility] [address] [place] [address] Surgeon General Surgery 12/03/22 CurtMaddie [address] [place] [address] Psychiatry 12/04/22 Team Status: Active Member Role Status Dates Dr. Patricio Moeller MD Family Provider Active Dr. Patricio Moeller MD Primary Care Provider Active Team Status: Inactive Member Role Status Dates Dr. Patricio Moeller MD Primary Care Provi edwin, Attending Provider, Referring Provider Active Team Status: Inactive Member Role Status Dates Dr. Patricio Moeller MD Primary Care Provider Active ZULMA ALEGRIA Attending Provider, Referring Provi edwin Active Data Systems Analyst Relationship Specialty Start Date End Date Patricio Moeller MD [address] [place] [phone] PCP - General 02/24/22 Dalton Martino MD [address] [address] Surgeon General Surgery 12/03/22 CurtMaddie [address] [place] [address] Psychiatry 12/04/22 Team Status: Inactive Member Role Status Dates Dr. Patricio Moeller MD Primary Care Provider, Attending Provider Active Data Systems Analyst Relationship Specialty Start Date End Date Patricio Moeller MD [address] [place] [phone] PCP - General 02/24/22 Dalton Martino MD [address] [facility] [address] [place], [place] [id number] Surgeon General Surgery 12/03/22 Maddie Elias [address] [place] [address] Psychiatry 12/04/22 Data Systems Analyst Relationship Specialty Start Date End Date Patricio Moeller MD [address] [facility] [address] [place] [phone] PCP - General 02/24/22 Dalton Martino MD [address] [place] [id number] Surgeon General Surgery 12/03/22 Maddie Elias [address] [place] [address] Psychiatry 12/04/22 Data Systems Analyst Relationship Specialty Start Date End Date Patricio Moeller MD PCP - General Family Medicine 07/20/14 Data Systems Analyst Relationship Specialty Start Date End Date Patricio Moeller MD [address] [facility] [address] [place] [phone] PCP - General 02/24/22 Dalton Martino MD [address] [facility] [address] [place] [id number] Surgeon General Surgery 12/03/22 Maddie Elias [address] [place] [address] Psychiatry 12/04/22 Data Systems Analyst Relationship Specialty Start Date End Date Patricio Moeller MD [address] [facility] [address] [place] [phone] PCP - General 02/24/22 Dalton Martino MD [address] [place] [address] Surgeon General Surgery 12/03/22 Maddie Elias [address] [place] [address] Psychiatry 12/04/22 Data Systems Analyst Relationship Specialty Start Date End Date Patricio Moeller MD [address] [facility] [address] [place] [phone] PCP - General 02/24/22 Dalton Martino MD [address] [place] [address] [place] [address] Surgeon General Surgery 12/03/22 Maddie Elias [address] [place] [address] Psychiatry 12/04/22 Data Systems Analyst Relationship Specialty Start Date End Date Patricio Moeller MD PCP - General Family Medicine 07/20/14 Data Systems Analyst Relationship Specialty Start Date End Date Patricio Moeller MD [address] [facility] [address] [place] [phone] PCP - General 02/24/22 Dalton Martino MD [address] [place], [place] [id number] Surgeon General Surgery 12/03/22 CurtDillonMaddie R [address] [place] [address] Psychiatry 12/04/22 Data Systems Analyst Relationship Specialty Start Date End Date Patricio Moeller MD [address] [facility] [address] [place] [address] PCP - General 02/24/22 Dalton Martino MD [address] [place] [address] Surgeon General Surgery 12/03/22 CurtDillonMaddie R [address] [place] [address] Psychiatry 12/04/22 Data Systems Analyst Relationship Specialty Start Date End Date Patricio Moeller MD [address] [facility] [address] [place] [address] PCP - General 02/24/22 Dalton Martino MD [address] [place] [address] Surgeon General Surgery 12/03/22 Curt, Maddie [address] [place] [address] Psychiatry 12/04/22 Data Systems Analyst Relationship Specialty Start Date End Date Patricio Moeller MD [address] [facility] [address] [place] [address] PCP - General 02/24/22 Dalton Martino MD [address] [place] [address] Surgeon General Surgery 12/03/22 CurtDillonMaddie [address] [place] [address] Psychiatry 12/04/22 Data Systems Analyst Relationship Specialty Start Date End Date Patricio Moeller MD [address] [facility] [address] [place] [address] PCP - General 02/24/22 Dalton Martino MD [address] [place] [address] Surgeon General Surgery 12/03/22 Curt, Maddie [address] [place] [address] Psychiatry 12/04/22 Data Systems Analyst Relationship Specialty Start Date End Date Patricio Moeller MD [address] [facility] [address] [place] [address] PCP - General 02/24/22 Dalton Martino MD [address] [facility] [address] [place] [address] Surgeon General Surgery 12/03/22 Curt, Maddie [address] [place] [address] Psychiatry 12/04/22 Data Systems Analyst Relationship Specialty Start Date End Date Patricio Moeller MD [address] [facility] [address] [place] [address] PCP - General 02/24/22 Dalton Martino MD [address] [place] [address] Surgeon General Surgery 12/03/22 Curt, Maddie [address] [place] [address] Psychiatry 12/04/22 Data Systems Analyst Relationship Specialty Start Date End Date Patricio Moeller MD [address] [place] [address] PCP - General 02/24/22 Dalton Martino MD [address] [place] [address] [address] [place] [address] Surgeon General Surgery 12/03/22 Maddie Elias [address] [place] [phone] Psychiatry 12/04/22 Team Status: Active Member Role Status Dates Dr. Patricio Moeller MD Primary Care Provider Active Team Status: Inactive Member Role Status Dates Dr. Patricio Moeller MD Primary Care Provider Active Start: November 28, 2024 End: November 28, 2024 Dr. Patricio Moeller MD Attending Provider Active Start: November 28, 2024 End: November 28, 2024 Dr. Patricio Moeller MD Referring Provider Active Start: November 28, 2024 End: November 28, 2024 Team Status: Inactive Member Role Status Dates Dr. Patricio Moeller MD Primary Care Provider Active Start: December 07, 2024 End: December 07, 2024 Dr. Patricio Moeller MD Referring Provider Active Start: December 07, 2024 End: December 07, 2024 CUBA Simons Attending Provider Active Start: December 07, 2024 End: December 07, 2024 Team Status: Inactive Member Role Status Dates Dr. Patricio Moeller MD Primary Care Provider Active Start: January 04, 2025 End: January 04, 2025 Dr. Patricio Moeller MD Referring Provider Active Start: January 04, 2025 End: January 04, 2025 CUBA Simons Attending Provider Active Start: January 04, 2025 End: January 04, 2025 Team Status: Active Member Role Status Dates PRIMO LUGO Attending Provider Active Start: [facility] 2024 PRIMO LUGO Referring Provider Active Start: [facility] [address] Dr. Patricio Moeller MD Primary Care Provider Active Start: January 25, 2025 Team Status: Inactive Member Role Status Dates Dr. Patricio Moeller MD Primary Care Provider Active Start: January 25, 2025 End: January 25, 2025 Dr. Patricio Moeller MD Referring Provider Active Start: January 25, 2025 End: January 25, 2025 Dr. Tamra Abdullahi MD Attending Provider Active Start: January 25, 2025 End: January 25, 2025 Team Status: Inactive Member Role Status Dates Dr. Patricio Moeller MD Primary Care Provider Active Start: January 30, 2025 End: January 30, 2025 Dr. Patricio Moeller MD Referring Provider Active Start: January 30, 2025 End: January 30, 2025 Agustín Francis PA, PA Attending Provider Active Start: January 30, 2025 End: January 30, 2025 Team Status: Inactive Member Role Status Dates Dr. Patricio Moeller MD Primary Care Provider Active Start: February 01, 2025 End: February 01, 2025 Dr. Patricio Moeller MD Referring Provider Active Start: February 01, 2025 End: February 01, 2025 Dr. Shon Rivera DO Attending Provider Active Start: February 01, 2025 End: February 01, 2025 Team Status: Active Member Role Status Dates Dr. Patricio Moeller MD Primary Care Provider Active Start: February 01, 2025 Dr. Patricio Moeller MD Referring Provider Active Start: February 01, 2025 Dr. Shon Rivera DO Attending Provider Active Start: February 01, 2025 Dr. Shon Rivera DO Other Provider Active St art: February 01, 2025 Team Status: Inactive Member Role Status Dates PRIMO LUGO Attending Provider Active Start: [facility] 2024 End: January 25, 2025 PRIMO LUGO Referring Provider Active Start: [facility] 2024 End: January 25, 2025 Dr. Patricio Moeller MD Primary Care Provider Active Start: January 25, 2025 End: January 25, 2025 Team Status: Inactive Member Role Status Dates Dr. Patricio Moeller MD Referring Provider Active Start: February 08, 2025 End: February 08, 2025 Dr. Tamra Abdullahi MD Attending Provider Active Start: February 08, 2025 End: February 08, 2025 Team Status: Inactive Member Role Status Dates Dr. Patricio Moeller MD Primary Care Provider Active Start: February 15, 2025 End: February 15, 2025 Dr. Patricio Moeller MD Attending Provider Active Start: February 15, 2025 End: February 15, 2025 Dr. Patricio Moeller MD Referring Provider Active Start: February 15, 2025 End: February 15, 2025 Team Status: Active Member Role Status Dates Dr. Patricio Moeller MD Primary Care Provider Active Start: February 22, 2025 End: February 22, 2025 Dr. Yessi Weiss MD Attending Provider Active Start: February 22, 2025 End: February 22, 2025 Dr. Tamra Abdullahi MD Referring Provider Active Start: February 22, 2025 End: February 22, 2025 Team Status: Inactive Member Role Status Dates Dr. Patricio Moeller MD Primary Care Provider Active Start: February 22, 2025 End: February 22, 2025 Dr. Patricio Moeller MD Referring Provider Active Start: February 22, 2025 End: February 22, 2025 Dr. Tamra Abdullahi MD Attending Provider Active Start: February 22, 2025 End: February 22, 2025 Team Status: Inactive Member Role Status Dates Dr. Patricio Moeller MD Primary Care Provider Active Start: February 28, 2025 End: February 28, 2025 Dr. Patricio Moeller MD Attending Provider Active Start: February 28, 2025 End: February 28, 2025 Dr. Patricio Moeller MD Referring Provider Active Start: February 28, 2025 End: February 28, 2025 Team Status: Inactive Member Role Status Dates Dr. Tamra Abdullahi MD Attending Provider Active Start: February 08, 2025 End: February 08, 2025 Dr. Tamra Abdullahi MD Referring Provider Active Start: February 08, 2025 End: February 08, 2025 Team Status: Inactive Member Role Status Dates Dr. Patricio Moeller MD Primary Care Provider Active Start: March 07, 2025 End: March 07, 2025 Dr. Patricio Moeller MD Attending Provider Active Start: March 07, 2025 End: March 07, 2025 Dr. Patricio Moeller MD Referring Provider Active Start: March 07, 2025 End: March 07, 2025 Team Status: Active Member Role Status Dates Dr. Patricio Moeller MD Primary Care Provider Active Start: March 09, 2025 Trisha Whitfield Attending Provider Active Start: March 09, 2025 Team Status: Inactive Member Role Status Dates Dr. Patricio Moeller MD Primary Care Provider Active Start: March 15, 2025 End: March 15, 2025 Dr. Patricio Moeller MD Referring Provider Active Start: March 15, 2025 End: March 15, 2025 Dr. Zaid Salazar MD Attending Provider Active S tart: March 15, 2025 End: March 15, 2025 Team Status: Inactive Member Role Status Dates Dr. Patricio Moeller MD Primary Care Provider Active Start: March 18, 2025 End: March 18, 2025 Dr. Antwon Liriano MD Emergency Provider Active Start: March 18, 2025 End: March 18, 2025 Team Status: Inactive Member Role Status Dates Dr. Patricio Moeller MD Primary Care Provider Active Start: February 22, 2025 End: February 22, 2025 Dr. Tamra Abdullahi MD Attending Provider Active Start: February 22, 2025 End: February 22, 2025 Dr. Tamra Abdullahi MD Referring Provider Active Start: February 22, 2025 End: February 22, 2025 Team Status: Inactive Member Role Status Dates Dr. Patricio Moeller MD Primary Care Provider Active Start: March 20, 2025 End: March 20, 2025 Dr. Patricio Moeller MD Referring Provider Active Start: March 20, 2025 End: March 20, 2025 ZULMA Bazzi Attending Provider Active Start: March 20, 2025 End: March 20, 2025 Team Status: Inactive Member Role Status Dates Dr. Patricio Moeller MD Primary Care Provider Active Start: March 20, 2025 End: March 20, 2025 Agustín MAYA PA Attending Provider Active Start: March 20, 2025 End: March 20, 2025 ZULMA Bazzi Referring Provider Active Start: March 20, 2025 End: March 20, 2025 Data Systems Analyst Relationship Specialty Start Date End Date Patricio Moeller MD [address] [facility] [address] [place] [address] PCP - General Family Medicine 5/15/25 Zaid Salazar MD [address] [place] [address] Oncology 03/23/25 Data Systems Analyst Relationship Specialty Start Date End Date Patricio Moeller MD [address] [place] [address] PCP - General Family Medicine 03/23/25 Zaid Salazar MD [address] [place] [address] Oncology 03/23/25 Data Systems Analyst Relationship Specialty Start Date End Date Patricio Moeller MD [address] [place] [address] PCP - General Family Medicine 03/23/25 Zaid Salazar MD [address] [place] [address] Oncology 03/23/25 Team Status: Active Member Role/Relationship Status Dates Dr. Patricio Moeller MD Primary Care Provider Active Team Status: Inactive Member Role/Relationship Status Dates PRIMO LUGO Attending Provider Active Start: [facility] 2024 End: January 25, 2025 PRIMO LUGO Referring Provider Active Start: [facility] 2024 End: January 25, 2025 Dr. Patricio Moeller MD Primary Care Provider Active Start: January 25, 2025 End: January 25, 2025 Team Status: Inactive Member Role/Relationship Status Dates Dr. Patricio Moeller MD Primary Care Provider Active Start: January 25, 2025 End: January 25, 2025 Dr. Patricio Moeller MD Referring Provider Active Start: January 25, 2025 End: January 25, 2025 Dr. Tamra Abdullahi MD Attending Provider Active Start: January 25, 2025 End: January 25, 2025 Team Status: Inactive Member Role/Relationship Status Dates Dr. Patricio Moeller MD Primary Care Provider Active Start: January 30, 2025 End: January 30, 2025 Dr. Patricio Moeller MD Referring Provider Active Start: January 30, 2025 End: January 30, 2025 Agustín Francis PA, PA Attending Provider Active Start: January 30, 2025 End: January 30, 2025 Team Status: Inactive Member Role/Relationship Status Dates Dr. Patricio Moeller MD Primary Care Provider Active Start: February 01, 2025 End: February 01, 2025 Dr. Patricio Moeller MD Referring Provider Active Start: February 01, 2025 End: February 01, 2025 Dr. Shon Rivera DO Attending Provider Active Start: February 01, 2025 End: February 01, 2025 Team Status: Active Member Role/Relationship Status Dates Dr. Patricio Moeller MD Primary Care Provider Active Start: February 01, 2025 Dr. Patricio Moeller MD Referring Provider Active Start: February 01, 2025 Dr. Shon Rivera DO Attending Provider Active Start: February 01, 2025 Dr. Shon Rivera DO Other Provider Active St art: February 01, 2025 Team Status: Inactive Member Role/Relationship Status Dates Dr. Tamra Abdullahi MD Attending Provider Active Start: February 08, 2025 End: February 08, 2025 Dr. Tamra Abdullahi MD Referring Provider Active Start: February 08, 2025 End: February 08, 2025 Team Status: Inactive Member Role/Relationship Status Dates Dr. Patricio Moeller MD Primary Care Provider Active Start: February 15, 2025 End: February 15, 2025 Dr. Patricio Moeller MD Attending Provider Active Start: February 15, 2025 End: February 15, 2025 Dr. Patricio Moeller MD Referring Provider Active Start: February 15, 2025 End: February 15, 2025 Team Status: Active Member Role/Relationship Status Dates Dr. Patricio Moeller MD Primary Care Provider Active Start: February 22, 2025 End: February 22, 2025 Dr. Yessi Weiss MD Attending Provider Active Start: February 22, 2025 End: February 22, 2025 Dr. Tamra Abdullahi MD Referring Provider Active Start: February 22, 2025 End: February 22, 2025 Team Status: Inactive Member Role/Relationship Status Dates Dr. Patricio Moeller MD Primary Care Provider Active Start: February 22, 2025 End: February 22, 2025 Dr. Tamra Abdullahi MD Attending Provider Active Start: February 22, 2025 End: February 22, 2025 Dr. Tamra Abdullahi MD Referring Provider Active Start: February 22, 2025 End: February 22, 2025 Team Status: Inactive Member Role/Relationship Status Dates Dr. Patricio Moeller MD Primary Care Provider Active Start: February 28, 2025 End: February 28, 2025 Dr. Patricio Moeller MD Attending Provider Active Start: February 28, 2025 End: February 28, 2025 Dr. Patricio Moeller MD Referring Provider Active Start: February 28, 2025 End: February 28, 2025 Team Status: Inactive Member Role/Relationship Status Dates Dr. Patricio Moeller MD Primary Care Provider Active Start: March 07, 2025 End: March 07, 2025 Dr. Patricio Moeller MD Attending Provider Active Start: March 07, 2025 End: March 07, 2025 Dr. Patricio Moeller MD Referring Provider Active Start: March 07, 2025 End: March 07, 2025 Team Status: Active Member Role/Relationship Status Dates Dr. Patricio Moeller MD Primary Care Provider Active Start: March 09, 2025 Trisha Whitfield Attending Provider Active Start: March 09, 2025 Team Status: Inactive Member Role/Relationship Status Dates Dr. Patricio Moeller MD Primary Care Provider Active Start: March 15, 2025 End: March 15, 2025 Dr. Patricio Moeller MD Referring Provider Active Start: March 15, 2025 End: March 15, 2025 Dr. Zaid Salazar MD Attending Provider Active S tart: March 15, 2025 End: March 15, 2025 Team Status: Inactive Member Role/Relationship Status Dates Dr. Patricio Moeller MD Primary Care Provider Active Start: March 18, 2025 End: March 18, 2025 Dr. Antwon Liriano MD Attending Provider Active Start: March 18, 2025 End: March 18, 2025 Dr. Antwon Liriano MD Emergency Provider Active Start: March 18, 2025 End: March 18, 2025 Team Status: Inactive Member Role/Relationship Status Dates Dr. Patricio Moeller MD Primary Care Provider Active Start: March 20, 2025 End: March 20, 2025 Dr. Patricio Moeller MD Referring Provider Active Start: March 20, 2025 End: March 20, 2025 ZULMA Bazzi Attending Provider Active Start: March 20, 2025 End: March 20, 2025 Team Status: Inactive Member Role/Relationship Status Dates Dr. Patricio Moeller MD Primary Care Provider Active Start: March 20, 2025 End: March 20, 2025 ZULMA Bazzi Attending Provider Active Start: March 20, 2025 End: March 20, 2025 ZULMA Bazzi Referring Provider Active Start: March 20, 2025 End: March 20, 2025 Team Status: Active Member Role/Relationship Status Dates Dr. Patricio Moeller MD Primary Care Provider Active Start: April 13, 2025 Dr. Zaid Salazar MD Attending Provider Active S tart: April 13, 2025 Dr. Zaid Salazar MD Referring Provider Active S tart: April 13, 2025 Team Status: Active Member Role/Relationship Status Dates Dr. Patricio Moeller MD Primary Care Provider Active Start: May 24, 2025 Dr. Patricio Moeller MD Attending Provider Active Start: May 24, 2025 Dr. Patricio Moeller MD Referring Provider Active Start: May 24, 2025 Dr. Zaid Salazar MD Other Provider Active Start : May 24, 2025 Team Status: Inactive Member Role/Relationship Status Dates Dr. Patricio Moeller MD Primary Care Provider Active Start: May 24, 2025 End: May 24, 2025 Dr. Patricio Moeller MD Referring Provider Active Start: May 24, 2025 End: May 24, 2025 Dr. Zaid Salazar MD Attending Provider Active S tart: May 24, 2025 End: May 24, 2025 Team Status: Inactive Member Role/Relationship Status Dates Dr. Patricio Moeller MD Primary Care Provider Active Start: January 30, 2025 End: January 30, 2025 Dr. Patricio Moeller MD Referring Provider Active Start: January 30, 2025 End: January 30, 2025 Agustín MAYA PA Attending Provider Active Start: January 30, 2025 End: January 30, 2025 Team Status: Inactive Member Role/Relationship Status Dates Dr. Patricio Moeller MD Primary Care Provider Active Start: February 01, 2025 End: February 01, 2025 Dr. Patricio Moeller MD Referring Provider Active Start: February 01, 2025 End: February 01, 2025 Dr. Shon Rivera DO Attending Provider Active Start: February 01, 2025 End: February 01, 2025 Team Status: Active Member Role/Relationship Status Dates Dr. Patricio Moeller MD Primary Care Provider Active Start: February 01, 2025 Dr. Patricio Moeller MD Referring Provider Active Start: February 01, 2025 Dr. Shon Rivera DO Attending Provider Active Start: February 01, 2025 Dr. Shon Rivera DO Other Provider Active St art: February 01, 2025 Team Status: Inactive Member Role/Relationship Status Dates Dr. Tamra Abdullahi MD Attending Provider Active Start: February 08, 2025 End: February 08, 2025 Dr. Tamra Abdullahi MD Referring Provider Active Start: February 08, 2025 End: February 08, 2025 Team Status: Inactive Member Role/Relationship Status Dates Dr. Patricio Moeller MD Primary Care Provider Active Start: February 15, 2025 End: February 15, 2025 Dr. Patricio Moeller MD Attending Provider Active Start: February 15, 2025 End: February 15, 2025 Dr. Patricio Moeller MD Referring Provider Active Start: February 15, 2025 End: February 15, 2025 Team Status: Active Member Role/Relationship Status Dates Dr. Patricio Moeller MD Primary Care Provider Active Start: February 22, 2025 End: February 22, 2025 Dr. Yessi Weiss MD Attending Provider Active Start: February 22, 2025 End: February 22, 2025 Dr. Tamra Abdullahi MD Referring Provider Active Start: February 22, 2025 End: February 22, 2025 Team Status: Inactive Member Role/Relationship Status Dates Dr. Patricio Moeller MD Primary Care Provider Active Start: February 22, 2025 End: February 22, 2025 Dr. Tamra Abdullahi MD Attending Provider Active Start: February 22, 2025 End: February 22, 2025 Dr. Tamra Abdullahi MD Referring Provider Active Start: February 22, 2025 End: February 22, 2025 Team Status: Inactive Member Role/Relationship Status Dates Dr. Patricio Moeller MD Primary Care Provider Active Start: February 28, 2025 End: February 28, 2025 Dr. Patricio Moeller MD Attending Provider Active Start: February 28, 2025 End: February 28, 2025 Dr. Patricio Moeller MD Referring Provider Active Start: February 28, 2025 End: February 28, 2025 Team Status: Inactive Member Role/Relationship Status Dates Dr. Patricio Moeller MD Primary Care Provider Active Start: March 07, 2025 End: March 07, 2025 Dr. Patricio Moleler MD Attending Provider Active Start: March 07, 2025 End: March 07, 2025 Dr. Patricio Moeller MD Referring Provider Active Start: March 07, 2025 End: March 07, 2025 Team Status: Active Member Role/Relationship Status Dates Dr. Patricio Moellre MD Primary Care Provider Active Start: March 09, 2025 Trisha Whitfield Attending Provider Active Start: March 09, 2025 Team Status: Inactive Member Role/Relationship Status Dates Dr. Patricio Moeller MD Primary Care Provider Active Start: March 15, 2025 End: March 15, 2025 Dr. Patricio Moeller MD Referring Provider Active Start: March 15, 2025 End: March 15, 2025 Dr. Zaid Salazar MD Attending Provider Active S tart: March 15, 2025 End: March 15, 2025 Team Status: Inactive Member Role/Relationship Status Dates Dr. Patricio Moeller MD Primary Care Provider Active Start: March 18, 2025 End: March 18, 2025 Dr. Antwon Liriano MD Attending Provider Active Start: March 18, 2025 End: March 18, 2025 Dr. Antwon Liriano MD Emergency Provider Active Start: March 18, 2025 End: March 18, 2025 Team Status: Inactive Member Role/Relationship Status Dates Dr. Patricio Moeller MD Primary Care Provider Active Start: March 20, 2025 End: March 20, 2025 Dr. Patricio Moeller MD Referring Provider Active Start: March 20, 2025 End: March 20, 2025 Agustín Francis PA, PA Attending Provider Active Start: March 20, 2025 End: March 20, 2025 Team Status: Inactive Member Role/Relationship Status Dates Dr. Patricio Moeller MD Primary Care Provider Active Start: March 20, 2025 End: March 20, 2025 ZULMA Bazzi Attending Provider Active Start: March 20, 2025 End: March 20, 2025 ZULMA Bazzi Referring Provider Active Start: March 20, 2025 End: March 20, 2025 Team Status: Active Member Role/Relationship Status Dates Dr. Patricio Moeller MD Primary Care Provider Active Start: April 13, 2025 Dr. Zaid Salazar MD Attending Provider Active S tart: April 13, 2025 Dr. Zaid Salazar MD Referring Provider Active S tart: April 13, 2025 Team Status: Inactive Member Role/Relationship Status Dates Dr. Patricio Moeller MD Primary Care Provider Active Start: May 24, 2025 End: May 24, 2025 Dr. Patricio Moeller MD Attending Provider Active Start: May 24, 2025 End: May 24, 2025 Dr. Patricio Moeller MD Referring Provider Active Start: May 24, 2025 End: May 24, 2025 Dr. Zaid Salazar MD Other Provider Active Start : May 24, 2025 End: May 24, 2025 Team Status: Inactive Member Role/Relationship Status Dates Dr. Patricio Moeller MD Primary Care Provider Active Start: May 24, 2025 End: May 24, 2025 Dr. Patricio Moeller MD Referring Provider Active Start: May 24, 2025 End: May 24, 2025 Dr. Zaid Salazar MD Attending Provider Active S tart: May 24, 2025 End: May 24, 2025 Reason for Visit (unrecogniz ed section and content) Reason Comments Bariatrics Post Op Follow-up 1M Reason Comments Bariatrics Post Op Follow-up 7m Reason Onset Date Comments Abnormal Lab 07/21/2023 Hypoglycemia, el evated total protein, B12 Reason Comments Yearly Exam Reason Comments Bariatrics Post Op Follow-up 12M Reason Onset Date Comments Abnormal Lab 05/23/2024 Reason Comments Bariatrics Post Op Follow-up 18M POP Reason Onset Date Comments Yearly Exam Immunizations 08/24/2024 Flu vaccination Reason Onset Date Comments Abnormal Lab 01/19/2023 Low magnesium Reason Comments Bariatrics Post Op Follow-up 1W Reason Comments Weight Management FPOV Specialty Diagnoses / Procedures Referred By Contac t Referred To Contact Diagnoses Morbid (severe) obesity due to excess calories (HCC) Diaphragmatic hernia without obstruction or gangrene Morbid (severe) obesity due to excess calories (HCC) [E66.01] Diaphragmatic hernia without obstruction or gangrene [K44.9] Procedures MN LAPS GSTRC RSTRICTIV PX LONGITUDINAL GASTRECTOMY MN UNLISTED LAPAROSCOPIC PROCEDURE LIVER MN LAPS RPR PARAESPHGL HRNA INCL FUNDPLSTY W/O MESH LAPAROSCOPY SLEEVE GASTRECTOMY WITH LIVER WEDGE BIOPSY WITH HIATAL HERNIA REPAIR, POSSIBLE OPEN UNLISTED LAPAROSCOPIC PROCEDURE LIVER Dalton Martino MD [address] [place] [address] [address] [place] [address] [address] [place] [address] [place] [address] Referral ID Status Reason Start Date Expiration Date Visits Re quested Visits Authorized [id number] 1 Reason Onset Date Comments Anticoagulation 12/02/2022 Lovenox Reason Comments Bariatrics Post Op Follow-up 24M POP Reason Comments New Patient Reason Comments Anemia Source Comments (unrecognize d section and content) In the event this informatio n is protected by the Federal Confidentiality of Alcohol and Drug Abuse Patient Records regulations: The Federal rules restrict any use of the information to criminally investigate or prosecute any alcohol or drug abuse patient.[facility] the event this information is protected by the Federal Confidentiality of Alcohol and Drug Abuse Patient Records regulations: The Federal rules restrict any use of the information to criminally investigate or prosecute any alcohol or drug abuse patient.[facility] the event this information is protected by the Federal Confidentiality of Alcohol and Drug Abuse Patient Records regulations: The Federal rules restrict any use of the information to criminally investigate or prosecute any alcohol or drug abuse patient.[facility] the event this information is protected by the Federal Confidentiality of Alcohol and Drug Abuse Patient Records regulations: The Federal rules restrict any use of the information to criminally investigate or prosecute any alcohol or drug abuse patient.[facility] the event this information is protected by the Federal Confidentiality of Alcohol and Drug Abuse Patient Records regulations: The Federal rules restrict any use of the information to criminally investigate or prosecute any alcohol or drug abuse patient.[facility] Scheduled Active and Recently Administ ered Medications (unrecognized section and content) Medication Order 12/21/2022 12/22/2022 12/23/2022 acetaminophen (Tylenol) tablet 1,000 mg (COMPLETED) 1,000 mg, Oral, Once, On Thu12/22/22 at 0900, For 1 dose, Preprocedure, Maximum dose of acetaminophen is 4000 mg from all sources in 24 hours. Do not administer if patient has taken tylenol <4 hours earlier. Do not give if contraindicated ie. patient has active liver disease or cirrhosis. 911 (Given - Provider: Moriah Lind RN) buPROPion XL (Wellbutrin XL) 24 hr tablet 150 mg 150 mg, Oral, Every evening, First dose on Thu12/22/22 at 1800, Do not crush, chew, or split. 2101 (Given - Provider: Gómez Baron RN) 1800 (Canceled Entry - Provider: Automatic Discharge Provider - Comment: Automatically canceled at discontinue of medication order) buPROPion XL (Wellbutrin XL) 24 hr tablet 300 mg 300 mg, Oral, Every evening, First dose on Thu12/22/22 at 1800, Do not crush, chew, or split. 2100 (Given - Provider: Gómez Baron RN) 1800 (Canceled Entry - Provider: Automatic Discharge Provider - Comment: Automatically canceled at discontinue of medication order) ceFAZolin in sodium chloride 0.9% (Ancef) IVPB 3,000 mg (COMPLETED) 3,000 mg, IntraVENous, Administer over 30 Minutes, Document Management Specialist to O.R., On Thu12/22/22 at 0900, For 1 dose, Preprocedure, Administer within 1 hour prior to incision. Repeat in 3-4 hours after initial dose if still intra-op. Default Settings:Auto-dosed by Weight Document Management Specialist to O.R x 1 dose Auto-dosed: Pt Wt<119.9kg-2gm, >120kg-3gm premix bag, Suspected Indication (Select all that apply): Surgical Prophylaxis 942 (Given - Provider: Shon Ahmadi CRNA)1200 (Anesthesia Volume Adjustment - Provider: Shon Ahmadi CRNA) celecoxib (CeleBREX) capsule 400 mg (COMPLETED) 400 mg, Oral, Once, On Thu12/22/22 at 0900, For 1 dose, Preprocedure, Avoid with sulfa allergy or creatinine greater than 1.5. Avoid severe hepatic impairment or renal transplant. Avoid if Age > 69. 911 (Given - Provider: Moriah Lind RN) enoxaparin (Lovenox) syringe 40 mg 40 mg, SubCUTAneous, 2 times daily, First dose on Thu12/22/22 at 2200, Phase II/On Unit, Indication of Use: Prophylaxis-DVT/PE, Indications: Prophylaxis of Venous Thromboembolism 2101 (Given - Provider: Gómez Baron RN) 0819 (Given - Provider: Emily Zavaleta RN) famotidine (Pepcid) tablet 20 mg (COMPLETED) 20 mg, Oral, Once, On Thu12/22/22 at 0900, For 1 dose, Preprocedure 0912 (Given - Provider: Moriah Lind RN) famotidine (Pepcid) tablet 20 mg 20 mg, Oral, 2 times daily, First dose on Thu12/23/22 at 0900 0824 (Given - Provid er: Emily Zavaleta RN) gabapentin (Neurontin) capsule 100 mg (COMPLETED) 100 mg, Oral, Once, On Thu12/22/22 at 0900, For 1 dose, Preprocedure, For Age >69 or Low GFR. 0912 (Given - Provider: Moriah Lind RN) heparin injection 5,000 Units (COMPLETED) 5,000 Units, SubCUTAneous, Once, On Thu12/22/22 at 0900, For 1 dose, Preprocedure 0912 (Given - Provider: Moriah Lind RN) ketorolac (Toradol) injection 30 mg 30 mg, IntraVENous, Every 6 hours scheduled (4 times per day), First dose on Thu12/22/22 at 1900, For 3 days 1802 (Given - Provider: Nataliya Díaz RN) 0041 (Given - Provider: óGmez Baron RN)0547 (Given - Provider: Gómez Baron RN)1219 (Given - Provider: Emily Zavaleta RN)1800 (Canceled Entry - Provider: Automatic Discharge Provider - Comment: Automatically canceled at discontinue of medication order) levothyroxine (Synthroid, Levoxyl) tablet 112 mcg 112 mcg, Oral, Daily before breakfast, First dose on Thu12/23/22 at 0700, Tube feeding (TF) interaction, obtain physician order to manage, recommend holding TF for 30 minutes before and after dose., Indications: Hypothyroidism 0547 (Given - Provid er: Gómez Baron RN) lurasidone (Latuda) tablet 80 mg 80 mg, Oral, Daily with breakfast, First dose on Thu12/23/22 at 0800 pantoprazole (ProtoNix) injection 40 mg (CANCELED) 40 mg, IntraVENous, Administer over 2 Minutes, Daily, First dose on Thu12/22/22 at 1615, Phase II/On Unit 1629 (Given - Provider: Nataliya Díaz RN) propranolol (Inderal) tablet 20 mg 20 mg, Oral, Every evening, First dose on Thu12/22/22 at 1800, Hold if HR is < 65 or if SBP is < 100 2101 (Given - Provider: Gómez Baron RN) 1800 (Canceled Entry - Provider: Automatic Discharge Provider - Comment: Automatically canceled at discontinue of medication order) sodium chloride 0.9 % bolus 500 mL (COMPLETED) 500 mL, IntraVENous, at 1,000 mL/hr, Administer over 30 Minutes, Once, On Thu12/22/22 at 1700, For 1 dose 1759 (New Bag - Provider: Nataliya Díaz RN)1829 (Stopped - Provider: Nataliya Díaz RN) sodium chloride 0.9 % bolus 500 mL (COMPLETED) 500 mL, IntraVENous, at 500 mL/hr, Administer over 1 Hours, Once, On Thu12/23/22 at 0745, For 1 dose 0819 (New Bag - Prov ider: Emily Zavaleta RN)0919 (Stopped - Provider: Emily Zavaleta RN) Continuous Medication Order 12/21/2022 12/22/2022 12/23/2022 dextrose 5 % and sodium chloride 0.45 % with KCl 20 mEq/L infusion 100 mL/hr, IntraVENous, Continuous, Starting on Thu12/22/22 at 1615, Phase II/On Unit 1629 (New Bag - Provider: Nataliya Díaz RN) lactated Ringer's (LR) infusion (CANCELED) 50 mL/hr, IntraVENous, Continuous, Starting on Thu12/22/22 at 0900, Preprocedure, Upon admission to sameday - please start iv if patient does not have iv access. Use 500ml NS for patients on dialysis. 0929 (New Bag - Provider: Simón Ahmadi CRNA)1055 (New Bag - Provider: Shon Ahmadi CRNA)1140 (Stopped - Provider: Shon Ahmadi CRNA) PRN Medication Order 12/21/2022 12/22/2022 12/23/2022 hydrALAZINE (Apresoline) injection 5 mg (COMPLETED) 5 mg, IntraVENous, Every 15 min PRN, high blood pressure, for SBP greater than 160 mmHg for 2 consecutive measurements taken from different sites, Starting on Thu12/22/22 at 1203, For 2 doses, Recovery (only), PRN for SBP > 160 for 2 consecutive measurements, and if one of the following conditions is met: 1) If IV labetolol is ineffective. 2) If HR is under 60. 3) If patient has heart block, COPD or asthma. If both labetalol and hydralazine ineffective, notify anesthesia provider. 1319 (Given - Provider: Alejandrina Mcdermott RN)1331 (Given - Provider: Andrea Aragon RN) HYDROmorphone (Dilaudid) injection 0.5 mg (CANCELED) 0.5 mg, IntraVENous, Every 5 min PRN, severe pain (7-10), Starting on Thu12/22/22 at 1204, For 4 doses, Recovery (only), Phase I and Phase II- Initial therapy for severe pain (7-10). Restricted to a 90 minute time frame starting when the patient can verbally state their pain score. If after 2 doses the pain score does not decrease by more than one point, then call the provider. If oral meds are utilized, do not return to initial therapy medications. 1254 (Given - Provider: Alejandrina Mcdermott, KOJO) LORazepam (Ativan) injection 0.5 mg (COMPLETED) 0.5 mg, IntraVENous, Once PRN, for anxiety or muscle spasm., Starting on Thu12/22/22 at 1204, For 1 dose, Recovery (only), For IV doses dilute dose with 1ml NS. 1222 (Given - Provider: Alejandrina Mcdermott, KOJO) morphine injection 2 mg(Linked Group 1) 2 mg, IntraVENous, Every 2 hour PRN, moderate pain (4-6), Starting on Thu12/22/22 at 1605, Phase II/On Unit, If oral and IV narcotics ordered, use oral first and only use IV if oral is ineffective or cannot take oral. Do Not give oral and IV within 1 hour of each other unless specifically ordered. 1629 (Given - Provider: Nataliya Díaz RN)2242 (Given - Provider: Gómez Baron, KOJO) morphine injection 4 mg(Linked Group 1) 4 mg, IntraVENous, Every 2 hour PRN, severe pain (7-10), Starting on Thu12/22/22 at 1605, Phase II/On Unit, If oral and IV narcotics ordered, use oral first and only use IV if oral is ineffective or cannot take oral. Do Not give oral and IV within 1 hour of each other unless specifically ordered. 1629 (See Alternative - Provider: Nataliya Díaz RN)2241 (See Alternative - Provider: Gómez Baron, RN) ondansetron (Zofran) injection 4 mg(Linked Group 2) 4 mg, IntraVENous, Every 6 hours PRN, nausea, vomiting, Starting on Thu12/22/22 at 1605, Phase II/On Unit, 1st Line. Give IV if patient is unable to take orally. If inadequate response within 60 minutes, proceed to next-line agent or contact provider if no further options ordered. 1635 (Given - Provider: Nataliya Díaz RN) 1615 (See Alternative - Provider: Emily Zavaleta RN) ondansetron ODT (Zofran-ODT) disintegrating tablet 4 mg(Linked Group 2) 4 mg, Oral, Every 8 hours PRN, nausea, vomiting, Starting on Thu12/22/22 at 1605, Phase II/On Unit, 1st Line. If inadequate response within 60 minutes, proceed to next-line agent or contact provider if no further options ordered. Patient should allow tablet to dissolve on tongue. Do not remove from blister pack until just before administering. 1635 (See Alternative - Provider: Nataliya Díaz RN) 1615 (Given - Provider: Emily Zavaleta RN) oxyCODONE-acetaminophen (Percocet) 5-325 MG per tablet 1 tablet(Linked Group 3) 1 tablet, Oral, Every 4 hours PRN, moderate pain (4-6), Starting on Thu12/23/22 at 0808, Maximum dose of acetaminophen is 4000 mg from all sources in 24 hours. 0824 (Given - Provid er: Emily Zavaleta RN)1223 (Given - Provider: Emily Zavaleta RN)1615 (Given - Provider: Emily Zavaleta RN) oxyCODONE-acetaminophen (Percocet) 5-325 MG per tablet 2 tablet(Linked Group 3) 2 tablet, Oral, Every 4 hours PRN, severe pain (7-10), Starting on Thu12/23/22 at 0808, Maximum dose of acetaminophen is 4000 mg from all sources in 24 hours. 0824 (See Alternativ e - Provider: Emily Zavaleta RN)1223 (See Alternative - Provider: Emily Zavaleta RN)1615 (See Alternative - Provider: Emily Zavaleta RN) sodium chloride 0.9 % infusion 5-250 mL/hr, IntraVENous, PRN, if patient receiving piggyback infusions and maintenance fluids are not ordered OR KVO fluids to protect IV site / prevent frequent line interruptions/ long duration, Starting on Thu12/22/22 at 1605, Phase II/On Unit, For piggyback infusion, administer at same rate as piggyback for a total of 25 mL. Enter 25 mL into dose field and piggyback rate into rate field of order. If piggyback is infusing at a rate less than 100 mL/hr, enter 25 mL into dose field and 100 mL/hr into rate field of order. For KVO fluids, enter rate of 20 mL/hr or less into rate field of order. sodium chloride 0.9 % irrigation solution (CANCELED) As needed, Starting on Thu12/22/22 at 1030, Intraprocedure 1030 (Given - Provider: Dalton Martino MD) sodium chloride 0.9% (NS) flush 10 mL 10 mL, IntraVENous, PRN, line care, Starting on Thu12/22/22 at 1605, Phase II/On Unit, After every IV line use sterile water irrigation solution (CANCELED) As needed, Starting on Thu12/22/22 at 1019, Intraprocedure 1019 (Given - Provider: Dalton Martino MD - Comment: for scopes/instruments) Linked Groups Order Group 1: morphine injection 2 mgJump to med 2 mg, IntraVENous, Every 2 hour PRN, moderate pain (4-6), Starting on Thu12/22/22 at 1605, Phase II/On Unit
If oral and IV narcotics ordered, use oral first and only use IV if oral is ineffective or cannot take oral. Do Not give oral and IV within 1 hour of each other unless specifically ordered.
Or morphine injection 4 mgJump to med 4 mg, IntraVENous, Every 2 hour PRN, severe pain (7-10), Starting on Thu12/22/22 at 1605, Phase II/On Unit
If oral and IV narcotics ordered, use oral first and only use IV if oral is ineffective or cannot take oral. Do Not give oral and IV within 1 hour of each other unless specifically ordered.
Group 2: ondansetron ODT (Zofran-ODT) disintegrating tablet 4 mgJump to med 4 mg, Oral, Every 8 hours PRN, nausea, vomiting, Starting on Thu12/22/22 at 1605, Phase II/On Unit
1st Line. If inadequate response within 60 minutes, proceed to next-line agent or contact provider if no further options ordered. Patient should allow tablet to dissolve on tongue. Do not remove from blister pack until just before administering.
Or ondansetron (Zofran) injection 4 mgJump to med 4 mg, IntraVENous, Every 6 hours PRN, nausea, vomiting, Starting on Thu12/22/22 at 1605, Phase II/On Unit
1st Line. Give IV if patient is unable to take orally. If inadequate response within 60 minutes, proceed to next-line agent or contact provider if no further options ordered.
Group 3: oxyCODONE-acetaminophen (Percocet) 5-325 MG per tablet 1 tabletJump to med 1 tablet, Oral, Every 4 hours PRN, moderate pain (4-6), Starting on Thu12/23/22 at 0808
Maximum dose of acetaminophen is 4000 mg from all sources in 24 hours.
Or oxyCODONE-acetaminophen (Percocet) 5-325 MG per tablet 2 tabletJump to med 2 tablet, Oral, Every 4 hours PRN, severe pain (7-10), Starting on Thu12/23/22 at 0808
Maximum dose of acetaminophen is 4000 mg from all sources in 24 hours.
FOR RECORDS PERTAINING TO PATIENTS WHO ARE [...] BE BASED ON THE PRIMARY CLINICAL RECORDS. [facility]. provides no warranty or guarantee of the accuracy or completeness of information in this document.
[2025-10-12 07:22] LABS: Internal QC Validated? YES +Cl - CLEAR BKGD; Pregnancy, Urine Negative Negative; Record Kit Lot#,Urine Preg 980607
[2025-10-12] MEDS: Ketorolac 30 MG/ML Syringe IV (07:30)
[2025-10-12] MEDS: Lactated Ringers 1,000 ML 15 ML IV (07:30)
[2025-10-12] MEDS: Lactated Ringers 1,000 ML 1000 ML IV (07:32)
[2025-10-12 07:38] LABS: Hematocrit 39.4 % (37-47); Hemoglobin 13.1 g/dL (12.0-15.0); Mean Corp Hgb Conc 33.2 g/dL (32-36); Mean Corpuscular Volume 89.3 fL (81-99); Mean Platelet Vol. 11.5 fl (6.2-12.0); Platelet Count 274 K/mm3 (150-450); RBC Distribution Width CV 11.8 % (11.6-14.6); RBC Distribution Width SD 37.7 fl (35.1-43.9); Red Blood Count 4.41 M/mm3 (4.2-5.4); White Blood Count 6.5 K/mm3 (4.4-11.0)
--- NOTE | 2025-10-12 07:42 | PRE.ANES_ITS ---
ASA Classification* ASA Classification ASA Classification: 2 Assessment & Plan Anesthesia* Anesthesia Assessment Anesthesia Assessment: Discussed sedation and/or anesthesia options, risks, benefits, and alternatives with patient/parents/legal guardian/POA. Questions invited. The patient/parents/legal guardian/POA seems to understand and agrees to proceed with anesthesia plan. Reviewed the physical assessment, medical history, allergy history and patient home medications list prior to surgery/procedure/anesthetic and documented any changes. Performed airway and anesthesia risk assessments. Anesthesia Type Anesthesia Type: MAC History Source History Obtained from:: Patient and Chart Anesthesia Focused Assessment* Temperature: 98.0 F Pulse Rate: 68 Blood Pressure: 118/74 Respiratory Rate: 16 Pulse Ox: 99 Oxygen Delivery Method: Room Air Airway Assessment Mouth opens: >3 cm Mallampati Score: I Teeth Condition: Intact Neck Range of motion (ROM): Full ROM Labs Anesthesia Preop lab: CBC WBC, (4.4-11.0) 6.5 K/mm3 Today, 07:30 RBC, (4.2-5.4) 4.41 M/mm3 Today, 07:30 Hgb, (12.0-15.0) 13.1 g/dL Today, 07:30 Hct, (37-47) 39.4 % Today, 07:30 Plt Count, (150-450) 274 K/mm3 Today, 07:30 CHEMISTRY Potassium, (3.3-5.1) 4.1 mmol/L 05/24/25, 07:46 Sodium, (133-145) 139 mmol/L 05/24/25, 07:46 Magnesium, (1.5-2.2) 1.8 mg/dL 05/24/25, 07:46 Phosphorus, (2.7-4.5) 2.6 mg/dL L 05/24/25, 07:46 BUN, (4-19) 9 mg/dL 05/24/25, 07:46 Creatinine, (0.70-1.20) 0.90 mg/dL 05/24/25, 07:46 Glucose, (70-99) 85 mg/dL 05/24/25, 07:46 POC Glucose, (70-110) 85 mg/dL 07/18/16, 06:52 TSH, (0.300-4.200) 1.320 uIU/mL 05/24/25, 07:46 COAG PT, (11.7-14.9) 13.9 SECONDS 02/22/25, 08:39 Urine Test Negative Negative Today, 07:09 [facility]st Clinic Negative 03/20/25, 15:58 Pre-Assessment Diagnosis/Proposed Procedure Planned Operative Procedure(s): (N/A) Hysteroscopy,D&C Rochelle Anesthesia History 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 When Was Last Pacemaker Check QUESTION #4 FULL TEXT: You/Your Family Experience fever (hyperthermia) with Anesthesia Last Oral Intake Last Oral intake: Last Oral Intake NPO since 18:30 10/12/25 07:18 Meds taken in AM with sips of Yes 10/12/25 07:18 water? Meds patient instructed to see med list 10/12/25 07:18 take am of surgery PONV PONV - charge accounts audit clerk: PONV - charge accounts audit clerk Female No 10/02/25 11:23 HX of Motion Sickness No 10/02/25 11:23 HX of N/V After Surgery No 10/02/25 11:23 Non-Smoker Yes 10/02/25 11:23 Duration of Surgery greater No 10/02/25 11:23 than 60 minutes Number of Risk Factors 1 10/02/25 11:23 PONV Score Low Risk 10/02/25 11:23 Height & Weight Height & Weight: Anesthesia: Height & Weight Height 5 ft 2 in 10/12/25 07:18 Weight: 81 kg 10/12/25 07:18 Body Mass Index (BMI) 32.6 10/12/25 07:18 Respiratory Assessment Respiratory Assessment - charge accounts audit clerk: Respiratory Tract Infection Hx - charge accounts audit clerk Hx Respiratory Tract Infection No 10/02/25 11:23 STOP Sleep Apnea STOP Sleep Apnea - charge accounts audit clerk: STOP Sleep Apnea - charge accounts audit clerk Hx Hypertension No 10/02/25 11:23 Hx Sleep Apnea Yes 10/02/25 11:23 CPAP Yes 10/02/25 11:23 BIPAP No 10/02/25 11:23 Do you snore loudly (louder than talking or can be heard Do you often feel tired/ fatigued/ sleepy during daytime? Has anyone observed you stop breathing during sleep? STOP Results Positive 10/02/25 11:23 QUESTION #5 FULL TEXT : Do you snore loudly (louder than talking or can be heard through closed doors)? 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 Specify any problems Hx of Preganancy in last 3 No 10/02/25 11:23 Months Nurse Filling Out Transfusion MGRIFFITH 10/02/25 11:23 & Questions: Date: 10/02/25 10/02/25 11:23 Time: 11:27 10/02/25 11:23 Patient unable to answer at this time (ie. confused, unrespo /Reproduction History /Reproductive History - charge accounts audit clerk: /Reproductive Hx- charge accounts audit clerk Hx Now No 10/02/25 11:23 Gestational Age (in weeks): EDC: Hx Hx Para Hx Section SAB No 10/02/25 11:23 Does the father of the baby or his family experience fever w Father of the baby Malignant Hypertension history comment Active Medications Active Medications: Current Medications Generic Name Dose Route Start Last Admin Trade Name Freq PRN Reason Stop Dose Admin Acetaminophen 1,000 mg 10/12/25 08:30 10/12/25 07:30 Acetaminophen 500 Mg Tablet PO 10/12/25 08:31 1,000 mg PREOP ONE Administration Lactated Ringer's 1,000 mls @ 15 mls/hr 10/12/25 07:15 10/12/25 07:30 IV 15 mls/hr .Q48H TARA Administration Ketorolac Tromethamine 30 mg 10/12/25 08:30 10/12/25 07:30 Ketorolac 30 Mg/Ml Syringe IV 10/12/25 08:31 30 mg PREOP ONE Administration PFSH Medical History (Updated 10/02/25 @ 11:33 by Elizabeth Vieira) Low iron Easy bruising GERD (gastroesophageal reflux disease) Carpal tunnel syndrome Insomnia KARINE (obstructive sleep apnea) Former smoker Depression Anxiety Alcohol use Anemia Back pain Migraine headache CPAP (continuous positive airway pressure) dependence Shortness of breath on exertion History of echocardiogram Seizures Cardiology follow-up encounter Polycystic ovary Hormone deficiency Rectal discomfort Constipation Hepatic steatosis Obesity, morbid, BMI 40.0-49.9 Hypothyroidism Normal spontaneous vaginal delivery Home Medications Medication Instructions Recorded Last Taken Type bupropion HCl 300 mg 24 hr tablet, 300 mg PO QHS 07/30 Unknown History extended release lurasidone 80 mg tablet (Latuda) 60 mg PO QHS 12/06/24 Unknown History clonazepam 0.5 mg tablet 0.5 mg PO BID 12/07/2410/12 06:00 History cholecalciferol (vitamin D3) 50 4,000 unit PO DAILY Unknown History mcg (2,000 unit) capsule ferrous sulfate 325 mg (65 mg 325 mg PO QDAY 02/17/25 Unknown History iron) tablet (FeroSul) levothyroxine 100 mcg tablet 100 mcg PO DAILY 02/17/25 10/12/25 06:00 History magnesium oxide 500 mg capsule 500 mg PO DAILY 5 Unknown History multivitamin 1 tab PO DAILY 02/17/25 Unkn own History epinephrine 0.3 mg/0.3 mL 0.3 mg IM ONCE 03/09/25 Unkn own History injection, auto-injector (EpiPen) bupropion HCl 150 mg 24 hr tablet, 150 mg PO QHS 03/20 Unknown History extended release Allergy/AdvReac Type Severity Reaction Status Date / Time bee venom protein (honey bee) AdvReac Severe Anaphylaxis Verified 10/12/25 07:17 Family History Father Hypertension Obesity Mother Hypertension Obesity Grandfather Colon cancer Uncle Colon cancer Surgical History (Updated 10/02/25 @ 11:23 by Elizabeth Vieira) History of liver biopsy History of colonoscopy H/O hernia repair H/O gastric sleeve Social History household members: spouse Smoking Status: Former smoker how long ago did patient quit smoking: quit 20 years ago alcohol intake: current alcohol intake frequency: holidays/special occasions only substance use type: does not use what type of physical activity do you participate in: walking frequency: 1-2 times per week additional social history: pt denies vaping, denies edibles, denies marijuana uses aspirin and ibuprofen as needed Review of Systems (Anesthesia) ROS Narrative System reviewed and no additional complaints, except as documented.
[2025-10-12 07:59] LABS: Anion Gap 10 (5-15); BUN 8 mg/dL (4-19); BUN/Creat Ratio 8.7 RATIO (10-20); Calcium,Total 9.0 mg/dL (7.6-11.0); Carbon Dioxide 26.1 mmol/L (21.0-32.0); Chloride 104 mmol/L (98-108); Estimated Creatinine Clearance 77.62 ml/min (50-250); Glucose 96 mg/dL (70-99); Potassium 3.9 mmol/L (3.3-5.1)
[2025-10-12] MEDS: Midazolam 2 MG/2 ML Syringe IV (08:22)
[2025-10-12] MEDS: Lidocaine 1% (5 ml sdv) 5 ML Vial IV (08:24)
[2025-10-12] MEDS: Lidocaine 2% /Epi 1:100 (20ml) 20 ML VIAL (08:48)
--- NOTE | 2025-10-12 09:15 | DCINST_ITS ---
Discharge Instructions DC O2, CPAP, BIPAP needs Home O2 Discharge instructions: No Dressing / Incision Return to work on:: 10/13/25 May shower in (days): 1 May resume sexual activity in: 2 weeks Lifting Restrictions: none Dressing / Incision Call your doctor if your incision/area has: Sudden Increased Bleeding and Foul Smelling Discharge Call your doctor if you observe: Fever of 101 or Higher and Using more than 1 pad per hour (for 2 hrs in a row) Follow Up Care Please Follow Up With: Aparna Anders MD When: You do not need a postop appointment if you are doing well. Send a [employer] message or call [phone] to make an appointment or with any con cerns. Otherwise, follow up for annual exams or as needed Test Results: Test results from this visit will be discussed in further detail at your follow- up appointment, if applicable. Discharge Plan Admission Primary Reason for Your Visit: Hysteroscopy with endometrial ablation Attending Provider: Aparna Anders Primary Care Provider: Patricio Moeller Instructions Print Language: Romanian Discharge Orders/Prescriptions Prescriptions: No Action bupropion HCl 300 mg tablet extended release 24 hr 300 mg PO QHS lurasidone [Latuda] 80 mg tablet 60 mg PO QHS clonazepam 0.5 mg tablet 0.5 mg PO BID epinephrine [EpiPen] 0.3 mg/0.3 mL auto-injector 0.3 mg IM ONCE Rx Instructions: as a single dose; may repeat once bupropion HCl 150 mg tablet extended release 24 hr 150 mg PO QHS levothyroxine 100 mcg tablet 100 mcg PO DAILY multivitamin Tablet 1 tab PO DAILY cholecalciferol (vitamin D3) 50 mcg (2,000 unit) capsule 4,000 unit PO DAILY magnesium oxide 500 mg capsule 500 mg PO DAILY ferrous sulfate [FeroSul] 325 mg (65 mg iron) tablet 325 mg PO QDAY Referrals / Follow Up: Patricio Moeller MD [Primary Care Provider, Family Practice] Disposition Disposition (needs filled in before D/C Order can be placed): Home, Self Care
--- NOTE | 2025-10-12 09:16 | OP.PCM_ITS ---
Operative Report (Standard) Operative Information Date of Procedure: 10/12/25 Pre-Operative Diagnosis: menorrhagia Post-Operative Diagnosis: same Surgery/Procedure Performed: Hysteroscopy with Endometrial ablation (HTA) house nurse: Yes Fuel Dock Attendant: Mikel Henley Tasks completed by instructional support assistant: Retracting Additional assistant executive housekeeper?: No Type of Anesthesia: MAC/Supplemental/Local RN Documented Start/Stop Times: Operation Date: 10/12/25 08:30 Case Time Into Pre-Op 10/12/25 07:02 Out of Pre-Op 10/12/25 08:16 Anesthesia Start 10/12/25 08:21 Into Room 10/12/25 08:21 Procedure Start 10/12/25 08:38 Procedure Start Time: 08:38 Procedure Stop Time: 09:10 Select all DRAINS/GRAFTS/IMPLANTS that apply: None Estimated Blood Loss: 10 Fluids Replaced: 1000 cc LR Specimen collected: No Description of surgery: The patient was taken to the OR where she was prepped and draped in dorsal lithotomy position. The weighted speculum was placed in the vagina and the anterior lip of the cervix was grasped with a single-tooth tenaculum. A paracervical block was administered with [1% lidocaine with 1-100,000 epin ephrine solution]. The cervix was dilated serially with Hegar dilators. The [5mm] hysteroscope was placed into the uterine cavity and the above findings were noted. Bilateral tubal ostia [were] identified. The uterus sounded to 8cm and the cervical length was 4.5cm. The endometrial cavity length was 3.5cm. The endometrial cavity was short. The decision was then made to proceed with HTA ablation over Rochelle. A gentle sharp curettage was done to take the endometrium down to the basalis layer. The HTA device was set up and readied. The instrument was then seated into the endometrial cavity just beyond the internal cervical os. Hysteroscopy was performed and cervical seal was confirmed. The device was readied for ablation and ran through its safety inspection without interruption. The warm up, ablation procedure and cooldown process was initiated and completed without interruption. When the ablation procedure was completed the hysteroscope and HTA device were removed. The tenaculum was removed and the tenaculum site was noted to be hemostatic. All sponge and needle counts were correct. A vaginal sweep was performed by . The patient was awakened and taken to the recovery room in stable condition. Hysteroscopic fluid deficit 50 cc of normal saline Surgical Findings: normal cervix and vagina, normal endometrium without discrete pathology Complications Complications: No Admit VTE Documentation VTE Present on Admission: No VTE Mechan Device Prophylaxis: SCD's VTE Pharm Prophylaxis ordered?: No
--- NOTE | 2025-10-12 09:21 | PCM.POST.ANE ---
Anesthesia: Postop Eval I Current Vital Signs Temperature: 97.7 F Pulse Rate: 72 Blood Pressure: 103/62 Respiratory Rate: 16 Pulse Ox: 96 Oxygen Delivery Method: Room Air Assessment Airway patent: Yes Spontaneous unlabored respirations: Yes Mental status: Awake and Calm nausea: No Vomiting: No Anesthesia Complication: No Fluid Hydration Crystalloid volume administer (ml): 1,000 Total IV fluid infused: 1,000 Progress Note Anesthesia document: Postop Eval 1 completed: Yes
--- NOTE | 2025-10-12 10:14 | POSTOPAN2_ITS ---
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
--- NOTE | 2025-10-12 10:14 | PCM.POSTANE2 ---
Anesthesia Postop Eval I Sum Postop Eval Completion status Anesthesia document: Postop Eval 1 completed: Yes Anesthesia Postop Eval I Summary Anesthesia Postop Eval I Summary: Anesthesia Postop Eval I: Assessment Summary Airway patent Yes 10/12/25 09:22 CHIEF OF ANESTHESIOLOGY.JDEF Spontaneous unlabored Yes 10/12/25 09:22 CHIEF OF ANESTHESIOLOGY.JDEF respirations Mental status Awake,Calm 10/12/25 09:22 CHIEF OF ANESTHESIOLOGY.JDEF nausea No 10/12/25 09:22 CHIEF OF ANESTHESIOLOGY.JDEF Vomiting No 10/12/25 09:22 CHIEF OF ANESTHESIOLOGY.JDEF Anesthesia Postop Eval I: Fluid Summary Crystalloid volume administer 1,000 10/12/25 09:22 CHIEF OF ANESTHESIOLOGY.JDEF (ml) Colloids volume administered ( ml) Blood Product volume administered (ml) Total IV fluid infused 1,000 10/12/25 09:22 CHIEF OF ANESTHESIOLOGY.JDEF Anesthesia Postop Eval I: Summary Notes Anesthesia Complication No 10/12/25 09:22 CHIEF OF ANESTHESIOLOGY.JDEF Anesthesia Complication Comment: Post-operative progress note Anesthesia: Postop Eval II Evaluation Mental status: Awake and Calm Pain Level: 2 nausea: No Vomiting: No Complications Anesthesia Complication: No
== END 2025-10-12 11:05 | disposition home or self-care (01) ==
LOC: SDC 06:56 → AC 06:58
PROVIDERS: PCP Family Medicine; Referring Provider Obstetrics & Gynecology; Visit Provider Obstetrics & Gynecology
PROC: 0U5B8ZZ Destruction of Endometrium, Via Natural or Artificial Opening Endoscopic (ICD-10-PCS; CPT 58558; principal; 2025-10-12 08:15)
DX: N92.0 Excessive and frequent menstruation with regular cycle (principal); N94.6 Dysmenorrhea, unspecified; Z79.890 Hormone replacement therapy; Z90.3 Acquired absence of stomach [part of]; Z79.899 Other long term (current) drug therapy; Z87.891 Personal history of nicotine dependence; K21.9 Gastro-esophageal reflux disease without esophagitis; E03.9 Hypothyroidism, unspecified
CPT/HCPCS: 58563; 00952; 80048; 81025; 85027; J2405

== ENCOUNTER → 2025-10-25 | Outpatient (CLI) | payer OTHER, SELFPAY ==
--- NOTE | 2025-02-22 08:13 | EKG12_ITS ---
Test Reason : PRE OP Blood Pressure : */* mmHG Vent. Rate : 74 BPM Atrial Rate : 74 BPM P-R Int : 144 ms QRS Dur : 84 ms QT Int : 390 ms P-R-T Axes : 59 42 54 degrees QTcB Int : 432 ms Normal sinus rhythm Normal ECG Confirmed by Solitario Weiss ([id number]), legal editor TOMER SHANKS ([id number]) on 02/22/2025 10:15:54 AM Referred By: Tamra Abdullahi Confirmed By: Solitario Weiss
[2025-02-22 09:59] LABS: Hematocrit 32.0 % (37-47); Hemoglobin 9.9 g/dL (12.0-15.0); Immature Granulocytes Count 0.010 X10^3/uL (0.0-0.0); Mean Corp Hgb Conc 30.9 g/dL (32-36); Mean Corpuscular Volume 82.7 fL (81-99); Mean Platelet Vol. 11.6 fl (6.2-12.0); NRBC Flagged by Analyzer 0 % (0-5); Platelet Count 291 K/mm3 (150-450); RBC Distribution Width CV 14.1 % (11.6-14.6); RBC Distribution Width SD 41.2 fl (35.1-43.9); Red Blood Count 3.87 M/mm3 (4.2-5.4); White Blood Count 4.6 K/mm3 (4.4-11.0)
[2025-02-22 10:18] LABS: Prothrombin Time (Protime)PT. 13.9 SECONDS (11.7-14.9)
[2025-02-22 10:19] LABS: Partial Thromboplast Time 29.4 Seconds (24.1-36.2)
--- NOTE | 2025-02-22 13:17 | PAT.ANE_ITS ---
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 When Was Last Pacemaker Check QUESTION #4 FULL TEXT: You/Your Family Experience fever (hyperthermia) with Anesthesia Last Oral Intake Last Oral intake: Last Oral Intake NPO since Meds taken in AM with sips of water? 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 manager Female Yes 02/17/25 08:59 HX of Motion Sickness No 02/17/25 08:59 HX of N/V After Surgery No 02/17/25 08:59 Non-Smoker Yes 02/17/25 08:59 Duration of Surgery greater Yes 02/17/25 08:59 than 60 minutes Number of Risk Factors 3 02/17/25 08:59 PONV Score Moderate Risk 02/17/25 08:59 Height & Weight Height & Weight: Anesthesia: Height & Weight Height 5 ft 2 in 02/01/25 11:40 Respiratory Assessment Respiratory Assessment - machining manager: Respiratory Tract Infection Hx - machining manager Hx Respiratory Tract Infection No 02/17/25 08:59 STOP Sleep Apnea STOP Sleep Apnea - machining manager: STOP Sleep Apnea - machining manager Hx Hypertension No 02/17/25 08:59 Hx Sleep Apnea Yes 02/17/25 08:59 CPAP Yes 02/17/25 08:59 BIPAP No 02/17/25 08:59 Do you snore loudly (louder than talking or can be heard Do you often feel tired/ fatigued/ sleepy during daytime? Has anyone observed you stop breathing during sleep? STOP Results Positive 02/17/25 08:59 QUESTION #5 FULL TEXT : Do you snore loudly (louder than talking or can be heard through closed doors)? 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 Specify any problems Hx of Preganancy in last 3 No 02/17/25 08:59 Months Nurse Filling Out Transfusion MGRIFFITH 02/17/25 08:59 & Questions: Date: 02/17/25 02/17/25 08:59 Time: 09:03 02/17/25 08:59 Patient unable to answer at this time (ie. confused, unrespo /Reproduction History /Reproductive History - machining manager: /Reproductive Hx- machining manager Hx Now No 02/17/25 08:59 Gestational Age (in weeks): EDC: Hx Hx Para Hx Section SAB No 02/17/25 08:59 PFSH Medical History Former smoker Depression Anxiety Alcohol use Anemia Back pain Migraine headache CPAP (continuous positive airway pressure) dependence Shortness of breath on exertion History of echocardiogram Seizures Cardiology follow-up encounter Polycystic ovary Hormone deficiency Rectal discomfort Constipation Hepatic steatosis Obesity, morbid, BMI 40.0-49.9 Hypothyroidism Normal spontaneous vaginal delivery Home Medications ?Medication ?Instructions ?Recorded ?Last Taken ?Type bupropion HCl 300 mg 24 hr tablet, 300 mg PO QHS 07/30 Unknown History extended release lurasidone 80 mg tablet (Latuda) 20 mg PO QHS 12/06/24 Unknown History clonazepam 0.5 mg tablet 0.5 mg PO BID 12/07/24 Unkno wn History Diltiazem 2% / Lidocaine 5% #30 grams 01/04/25 Unknown Rx ointment (compound) ondansetron 4 mg disintegrating 4 mg PO Q4H PRN nausea and vomiting 01/30/25 Unknown History tablet cholecalciferol (vitamin D3) 50 4,000 unit PO DAILY Unknown History mcg (2,000 unit) capsule ferrous sulfate 325 mg (65 mg 325 mg PO QDAY 02/17/25 Unknown History iron) tablet (FeroSul) levothyroxine 100 mcg tablet 100 mcg PO DAILY 02/17/25 Unknown History magnesium oxide 500 mg capsule 500 mg PO DAILY 5 Unknown History multivitamin 1 tab PO DAILY 02/17/25 Unkn own History cephalexin 500 mg capsule 500 mg PO BID #14 caps 02/22 Unknown Rx oxycodone-acetaminophen 5 mg-325 1 tab PO TID PRN pain 3 days #8 02/22/25 Unknown Rx mg tablet (Percocet) tab-caps Allergy/AdvReac Type Severity Reaction Status Date / Time bee venom protein (honey bee) AdvReac Severe Anaphylaxis Verified 02/22/25 13:15 Family History Father Hypertension Obesity Mother Hypertension Obesity Grandfather Colon cancer Uncle Colon cancer Surgical History History of colonoscopy H/O hernia repair H/O gastric sleeve Social History household members: spouse Smoking Status: Former smoker how long ago did patient quit smoking: quit 20 years ago alcohol intake: current substance use type: does not use what type of physical activity do you participate in: walking frequency: 1-2 times per week additional social history: pt denies vaping, denies edibles, denies marijuana uses aspirin and ibuprofen as needed Audit: Pertinent Findings Pertinent Findings EKG Perinent findings: 02/22/2025. Normal sinus rhythm 74 bpm. Echo (EF%) pertinent findings: 08/13/2022. Normal size function EF 65%. Recommendation Anesthesia Recommendation Anesthesia recommendation: OPTIMIZED for anesthesia
== END | disposition home or self-care (01) ==
LOC: SDC 13:38 → PAT 13:38
PROVIDERS: Anesthesiology; PCP Family Medicine; Referring Provider Plastic Surgery; Visit Provider Plastic Surgery
DX: Z01.818 Encounter for other preprocedural examination (principal); Z01.810 Encounter for preprocedural cardiovascular examination; E61.1 Iron deficiency
CPT/HCPCS: 36415; 85025; 85610; 85730; 93005